=== PATIENT | male | born 1950 | race Caucasian/White ===

== ENCOUNTER 2017-06-19 09:35 | Emergency (ER) | payer MEDICARE, OTHER ==
[2017-06-19] MEDS ORDERED: MORPHINE SULFATE 4 MG/ML SYRINGE IV STA (10:29)
[2017-06-19] MEDS ORDERED: RX INFO: IV CONTRAST WAS GIVEN 1 EACH MISC MISCELLANE PRN (10:29)
[2017-06-19] MEDS ORDERED: SODIUM CHLORIDE 0.9% 1,000 ML IV STA (10:29)
--- NOTE | 2017-06-19 10:42 | ED ---
General Adult HPI - General Chief complaint: Back Pain/Injury Stated complaint: fall at home Time Seen by Provider: 06/19/17 10:01 Source: patient, RN notes reviewed Mode of arrival: ambulatory Limitations: no limitations - History of Present Illness Initial comments: 56-year-old male presents to emergency room chief complaint of back pain. Patient states that he fell off a ladder a few steps. 4 days ago. Patient states he tried Aleve he's tried Tylenol. Patient states that he seems to make his pain better see thought that he should be evaluated. Patient states he's bruised all the way to the back. Patient states that he has been having loss by bladder function he denies any saddle anesthesia. Patient denies any radiation of the legs. Patient states it just continues to hurt so he thought that he should be seen. Patient denies any recent fever, chills, shortness of breath, chest pain, abdominal pain, nausea vomiting, numbness or tingling, dysuria or hematuria, constipation or diarrhea, headaches or visual changes, or any other current symptoms. - Related Data Previous Rx's Medication Instructions Recorded Hydrocodone/Acetaminophen [[place] 1 each PO Q6HR PRN #20 tab 06/19/17 5-325] Allergies Allergy/AdvReac Type Severity Reaction Status Date / Time No Known Allergies Allergy Verified 06/19/17 09:56 Review of Systems ROS Statement: Those systems with pertinent positive or pertinent negative responses have been documented in the HPI. ROS Other: All systems not noted in ROS Statement are negative. Past Medical History Past Medical History: Hypertension History of Any Multi-Drug Resistant Organisms: None Reported Past Surgical History: No Surgical Hx Reported Past Psychological History: No Psychological Hx Reported Smoking Status: Current every day smoker Past Alcohol Use History: Occasional Past Drug Use History: None Reported General Exam Limitations: no limitations General appearance: alert, in no apparent distress ENT exam: Present: normal exam, mucous membranes moist Neck exam: Present: normal inspection. Absent: tenderness, meningismus, lymphadenopathy Respiratory exam: Present: normal lung sounds bilaterally. Absent: respiratory distress, wheezes, rales, rhonchi, stridor Cardiovascular Exam: Present: regular rate, normal rhythm, normal heart sounds. Absent: systolic murmur, diastolic murmur, rubs, gallop, clicks GI/Abdominal exam: Present: soft, normal bowel sounds. Absent: distended, tenderness, guarding, rebound, rigid Extremities exam: Present: normal inspection, full ROM, normal capillary refill. Absent: tenderness, pedal edema, joint swelling, calf tenderness Back exam: Present: full ROM, tenderness (Along the lumbar region that extends across the pelvis.). Absent: normal inspection (Patient has extensive ecchymosis to the lumbar region.), rash noted Neurological exam: Present: alert, oriented X3 Psychiatric exam: Present: normal affect, normal mood Skin exam: Present: warm, dry, intact, normal color. Absent: rash Course Vital Signs 06/19/17 06/19/17 09:53 11:48 Temperature 97.2 F L Pulse Rate 92 85 Respiratory 18 18 Rate Blood Pressure 192/111 214/102 O2 Sat by Pulse 98 96 Oximetry Medical Decision Making - Medical Decision Making 66-year-old male presents for fall from ladder. This time CAT scan is been reviewed and does not show any trauma type injury to the back or abdomen pelvis. At this time we will start patient pain medication for home. We did discuss follow-up we discussed return parameters outpatient family's questions. Patient is in agreement with this plan all questions have been answered. This time the patient will be discharged home. - Lab Data Result diagrams: 06/19/17 10:35 06/19/17 10:35 Lab Results 06/19/17 06/19/17 Range/Units 10:35 10:35 WBC 6.0 (3.8-10.6) k/uL RBC 4.58 (4.30-5.90) m/uL Hgb 15.1 (13.0-17.5) gm/dL Hct 47.3 (39.0-53.0) % MCV 103.3 H (80.0-100.0) fL MCH 32.9 (25.0-35.0) pg MCHC 31.9 (31.0-37.0) g/dL RDW 13.6 (11.5-15.5) % Plt Count 256 (150-450) k/uL Neutrophils % 65 % Lymphocytes % 19 % Monocytes % 9 % Eosinophils % 4 % Basophils % 1 % Neutrophils # 3.9 (1.3-7.7) k/uL Lymphocytes # 1.2 (1.0-4.8) k/uL Monocytes # 0.5 (0-1.0) k/uL Eosinophils # 0.2 (0-0.7) k/uL Basophils # 0.1 (0-0.2) k/uL Macrocytosis Slight Sodium 137 (137-145) mmol/L Potassium 4.2 (3.5-5.1) mmol/L Chloride 104 (98-107) mmol/L Carbon Dioxide 23 (22-30) mmol/L Anion Gap 10 mmol/L BUN 10 (9-20) mg/dL Creatinine 0.84 (0.66-1.25) mg/dL Est GFR (MDRD) Af Amer >60 (>60 ml/min/1.73 sqM) Est GFR (MDRD) Non-Af >60 (>60 ml/min/1.73 sqM) Glucose 95 (74-99) mg/dL Calcium 9.7 (8.4-10.2) mg/dL Total Bilirubin 1.2 (0.2-1.3) mg/dL AST 72 H (17-59) U/L ALT 69 (21-72) U/L Alkaline Phosphatase 116 (38-126) U/L Total Protein 7.4 (6.3-8.2) g/dL Albumin 4.2 (3.5-5.0) g/dL - Radiology Data Radiology results: report reviewed, image reviewed Disposition Clinical Impression: Lumbar contusion, Back contusion Disposition: HOME SELF-CARE Condition: Stable Instructions: Contusion in Adults (ED) Additional Instructions: Please use medication as discussed. Please follow up with family doctor if symptoms have not improved over the next two days. Please return to the emergency room if your symptoms increase or worsen or for any other concerns. Prescriptions: Hydrocodone/Acetaminophen [[place] 5-325] 1 each PO Q6HR PRN #20 tab PRN Reason: Pain Referrals: Erik Lemus MD [STAFF PHYSICIAN] - 1-2 days Time of Disposition: 12:01
[2017-06-19 10:43] LABS: Basophils # (A) 0.1 k/uL (0-0.2); Basophils % (A) 1 %; CH 33.7; CHCM 32.7; Eosinophils # (A) 0.2 k/uL (0-0.7); Eosinophils % (A) 4 %; HCT 47.3 % (39.0-53.0); HDW 2.02; HGB 15.1 gm/dL (13.0-17.5); Luc # (Auto) 0.08; Luc % (Auto) 1; Lymphocytes # (A) 1.2 k/uL (1.0-4.8); Lymphocytes % (A) 19 %; MCH 32.9 pg (25.0-35.0); MCHC 31.9 g/dL (31.0-37.0); MCV 103.3 fL (80.0-100.0); Macrocytosis Slight; Mean Platelet Volume 7.3; Monocytes # (A) 0.5 k/uL (0-1.0); Monocytes % (A) 9 %; Neutrophils # (A) 3.9 k/uL (1.3-7.7); Neutrophils % (A) 65 %; RBC 4.58 m/uL (4.30-5.90); RDW 13.6 % (11.5-15.5); WBC (Perox) 6.13
[2017-06-19 10:54] LABS: ALT 69 U/L (21-72); AST 72 U/L (17-59); Alkaline Phosphatase 116 U/L (38-126); Anion Gap 10 mmol/L; Blood Urea Nitrogen 10 mg/dL (9-20); Calcium 9.7 mg/dL (8.4-10.2); Carbon Dioxide 23 mmol/L (22-30); Chloride 104 mmol/L (98-107); Glucose 95 mg/dL (74-99); Non-African American GFR(MDRD) >60 (>60 ml/min/1.73 sqM); Potassium 4.2 mmol/L (3.5-5.1); Sodium 137 mmol/L (137-145); Total Bilirubin 1.2 mg/dL (0.2-1.3); Total Protein 7.4 g/dL (6.3-8.2)
[2017-06-19] MEDS ORDERED: ENALAPRILAT 1.25 MG/ML 1 ML VIAL IVP STA (11:08)
--- NOTE | 2017-06-19 11:43 | CT ---
EXAMINATION TYPE: CT abdomen pelvis w con DATE OF EXAM: 06/19/2017 REFERENCE: NONE HISTORY: Pain HISTORY: Fall 4 days ago hit back on trash can, severe bruising and pain to back REFERENCE: NONE CT DLP: 637.8 mGy Automated exposure control for dose reduction was used. TECHNIQUE: Helical acquisition through the abdomen and pelvis was obtained following the oral ingesti on of without Oral Contrast and following intravenous administration of 100 mL of Omnipaque 300. The data was reformatted in axial, coronal and sagittal projections. FINDINGS: There is some dependent atelectasis in the dependent portions of the lungs. There is no pl eural pericardial fluid. The heart is upper limits of normal in size. Within the abdomen, the liver is normal in size. It is markedly fatty infiltrated. The spleen and gal lbladder are normal. Both adrenal glands appear normal. There is a nonobstructing, 8.6 mm calculus in one of the lower pole calyces on the right. There is a 9 mm calculus in one of the lower pole calyces on the left. There is an additional 6 mm calculus in t he posterior mid polar calyx on the right. There is no hydronephrosis. The pancreatic duct is mildly prominent measuring 3 mm. No other pancreatic abnormality is identified . There is no significant retroperitoneal, iliac or inguinal adenopathy. The bladder is unremarkable. There are scattered diverticula in the sigmoid region without radiographic evidence of diverticulitis . The appendix is normal. Small bowel loops are normal. No free fluid and no free air is seen. There is facet arthropathy in the lower lumbar facets No fractures are seen. There is a subcutaneous hematoma overlying the soft tissues of the mid back extending over to the lev el of the right iliac crest. IMPRESSION: 1. SOFT TISSUE HEMATOMA OVERLYING THE LOWER BACK ON THE RIGHT. 2. FATTY INFILTRATION OF THE LIVER. 3. BORDERLINE CARDIOMEGALY. 5. BILATERAL NONOBSTRUCTING NEPHROLITHIASIS. 6. MILD PROMINENCE OF THE PANCREATIC DUCT. ERCP OR MRCP MIGHT BE WORTHWHILE IF CLINICALLY INDICATED. 7. MINIMAL UNCOMPLICATED DIVERTICULOSIS OF THE SIGMOID COLON. #8 MILD DEGENERATIVE CHANGE WITHIN THE SPINE.
--- NOTE | 2017-06-19 12:04 | ED ---
Medical Decision Making - Medical Decision Making Patient is a found to have an elevated blood pressure on this ER visit. At this time patient is informed to follow-up with his family care doctor for continued monitoring. - Lab Data Result diagrams: 06/19/17 10:35 06/19/17 10:35 Lab Results 06/19/17 06/19/17 Range/Units 10:35 10:35 WBC 6.0 (3.8-10.6) k/uL RBC 4.58 (4.30-5.90) m/uL Hgb 15.1 (13.0-17.5) gm/dL Hct 47.3 (39.0-53.0) % MCV 103.3 H (80.0-100.0) fL MCH 32.9 (25.0-35.0) pg MCHC 31.9 (31.0-37.0) g/dL RDW 13.6 (11.5-15.5) % Plt Count 256 (150-450) k/uL Neutrophils % 65 % Lymphocytes % 19 % Monocytes % 9 % Eosinophils % 4 % Basophils % 1 % Neutrophils # 3.9 (1.3-7.7) k/uL Lymphocytes # 1.2 (1.0-4.8) k/uL Monocytes # 0.5 (0-1.0) k/uL Eosinophils # 0.2 (0-0.7) k/uL Basophils # 0.1 (0-0.2) k/uL Macrocytosis Slight Sodium 137 (137-145) mmol/L Potassium 4.2 (3.5-5.1) mmol/L Chloride 104 (98-107) mmol/L Carbon Dioxide 23 (22-30) mmol/L Anion Gap 10 mmol/L BUN 10 (9-20) mg/dL Creatinine 0.84 (0.66-1.25) mg/dL Est GFR (MDRD) Af Amer >60 (>60 ml/min/1.73 sqM) Est GFR (MDRD) Non-Af >60 (>60 ml/min/1.73 sqM) Glucose 95 (74-99) mg/dL Calcium 9.7 (8.4-10.2) mg/dL Total Bilirubin 1.2 (0.2-1.3) mg/dL AST 72 H (17-59) U/L ALT 69 (21-72) U/L Alkaline Phosphatase 116 (38-126) U/L Total Protein 7.4 (6.3-8.2) g/dL Albumin 4.2 (3.5-5.0) g/dL Disposition Clinical Impression: Lumbar contusion, Back contusion, Hypertension Disposition: HOME SELF-CARE Condition: Stable Instructions: Contusion in Adults (ED) Additional Instructions: Please use medication as discussed. Please follow up with family doctor if symptoms have not improved over the next two days. Please return to the emergency room if your symptoms increase or worsen or for any other concerns. Prescriptions: Hydrocodone/Acetaminophen [[place] 5-325] 1 each PO Q6HR PRN #20 tab PRN Reason: Pain Referrals: Erik Lemus MD [STAFF PHYSICIAN] - 1-2 days Time of Disposition: 13:38
[2017-06-19] MEDS ORDERED: LABETALOL 5 MG/ML VIAL MDV IVP STA (12:35)
[2017-06-19 13:21] VITALS: TEMP 97.5
[2017-06-19 13:38] VITALS: BP 171/95; PULSE 79; RESP 20
== END 2017-06-19 13:45 | disposition home or self-care (01) ==
LOC: EC 09:35
DX: S30.0XXA Contusion of lower back and pelvis, initial encounter (principal); F17.200 Nicotine dependence, unspecified, uncomplicated; W11.XXXA Fall on and from ladder, initial encounter
CPT/HCPCS: 99284 ×2; 96374 ×2; 96375 ×3; 96361 ×2; 36415; 80053; 85025; 74177; J2270; Q9967

== ENCOUNTER 2021-04-01 05:15 | Inpatient (IN) | payer MEDICARE, OTHER ==
[2021-04-01] MEDS ORDERED: SODIUM CHLORIDE 0.9% 1,000 ML IV STA ×2 (05:19→06:26)
[2021-04-01 05:21] LABS: Glucose,Whole Blood 96 mg/dL (75-99)
--- NOTE | 2021-04-01 05:49 | ED ---
Fall HPI - General Chief Complaint: Fall Stated Complaint: Fall Time Seen by Provider: 04/01/21 05:18 Source: patient, EMS, RN notes reviewed, old records reviewed Mode of arrival: EMS - History of Present Illness Initial Comments: This is a 70-year-old male DF for evaluation of a fall. Fall with inability to stand up. Patient has multiple falls recently and has become increasingly weak. Patient does admit to drinking daily. Patient is complaining of severe weakness today he is short of breath currently and feels significantly dehydrated. Otherwise patient has a cough or congestion, Shortness of breath MD Complaint: fall -: hour(s) Fall From: standing When Fall Occurred: unsure Fall Witnessed: yes, by bystander Place Fall Occurred: home Loss of Consciousness: none Prolonged Down Time?: no Symptoms Prior to Fall: none Severity: moderate Quality: burning Context: tripped/slipped Associated Symptoms: denies - Related Data Previous Rx's Medication Instructions Recorded Hydrocodone/Acetaminophen [[place] 1 each PO Q6HR PRN #20 tab 06/19/17 5-325] Allergies Allergy/AdvReac Type Severity Reaction Status Date / Time No Known Allergies Allergy Verified 06/19/17 09:56 Review of Systems ROS Statement: Those systems with pertinent positive or pertinent negative responses have been documented in the HPI. ROS Other: All systems not noted in ROS Statement are negative. Past Medical History Past Medical History: Hypertension History of Any Multi-Drug Resistant Organisms: None Reported Past Surgical History: No Surgical Hx Reported Past Psychological History: No Psychological Hx Reported Past Alcohol Use History: Occasional Past Drug Use History: None Reported General Exam Limitations: no limitations General appearance: alert, in no apparent distress Head exam: Present: atraumatic, normocephalic, normal inspection Eye exam: Present: normal appearance, PERRL, EOMI. Absent: scleral icterus, conjunctival injection, periorbital swelling ENT exam: Present: normal exam, mucous membranes moist Neck exam: Present: normal inspection. Absent: tenderness, meningismus, lymphadenopathy Respiratory exam: Present: normal lung sounds bilaterally. Absent: respiratory distress, wheezes, rales, rhonchi, stridor Cardiovascular Exam: Present: regular rate, normal rhythm, normal heart sounds. Absent: systolic murmur, diastolic murmur, rubs, gallop, clicks GI/Abdominal exam: Present: soft, normal bowel sounds. Absent: distended, tenderness, guarding, rebound, rigid Extremities exam: Present: normal inspection, full ROM, normal capillary refill. Absent: tenderness, pedal edema, joint swelling, calf tenderness Back exam: Present: normal inspection Neurological exam: Present: alert, oriented X3, CN II-XII intact Psychiatric exam: Present: normal affect, normal mood Skin exam: Present: warm, dry, intact, normal color. Absent: rash Course Vital Signs 04/01/21 05:16 Temperature 98.1 F Pulse Rate 93 Respiratory 17 Rate Blood Pressure 171/88 O2 Sat by Pulse 97 Oximetry - Reevaluation(s) Reevaluation #1: 04/01/21 05:49 Medical record is reviewed Reevaluation #2: 04/01/21 06:37 Patient does not feel well feels weak feels lightheaded feels dizzy. Reevaluation #3: 04/01/21 06:37 Patient's continued to be short of breath with no chest pain Reevaluation #4: 04/01/21 06:37 Patient informed of results and questions answered - Consultations Consultation #1: Spoke with Dr. Pro who agrees to admit this patient Medical Decision Making - Medical Decision Making 70-year-old male DF for evaluation of weakness and fall. Patient does have pneumonia on x-ray short of breath and persistently weak. Patient be admitted for IV antibiotics medical management, PTOT evaluation - Lab Data Result diagrams: 04/01/21 05:47 04/01/21 05:47 Lab Results 04/01/21 04/01/21 04/01/21 Range/Units 05:19 05:47 05:47 WBC 9.9 (3.8-10.6) k/uL RBC 3.63 L (4.30-5.90) m/uL Hgb 12.1 L (13.0-17.5) gm/dL Hct 39.0 (39.0-53.0) % MCV 107.3 H (80.0-100.0) fL MCH 33.3 (25.0-35.0) pg MCHC 31.1 (31.0-37.0) g/dL RDW 14.6 (11.5-15.5) % Plt Count 362 (150-450) k/uL MPV 7.8 Neutrophils % 77 % Lymphocytes % 15 % Monocytes % 5 % Eosinophils % 2 % Basophils % 1 % Neutrophils # 7.6 (1.3-7.7) k/uL Lymphocytes # 1.4 (1.0-4.8) k/uL Monocytes # 0.5 (0-1.0) k/uL Eosinophils # 0.2 (0-0.7) k/uL Basophils # 0.1 (0-0.2) k/uL Macrocytosis Moderate Sodium 135 L (137-145) mmol/L Potassium 3.7 (3.5-5.1) mmol/L Chloride 105 (98-107) mmol/L Carbon Dioxide 18 L (22-30) mmol/L Anion Gap 12 mmol/L BUN 17 (9-20) mg/dL Creatinine 1.81 H (0.66-1.25) mg/dL Est GFR (CKD-EPI)AfAm 43 (>60 ml/min/1.73 sqM) Est GFR (CKD-EPI)NonAf 37 (>60 ml/min/1.73 sqM) Glucose 91 (74-99) mg/dL POC Glucose (mg/dL) 96 (75-99) mg/dL POC Glu Pl[employer]rer Apprentice ID Bhavik Main Plasma Lactic Acid Delbert (0.7-2.0) mmol/L Calcium 8.3 L (8.4-10.2) mg/dL Phosphorus 4.0 (2.5-4.5) mg/dL Magnesium 2.0 (1.6-2.3) mg/dL Total Bilirubin 1.2 (0.2-1.3) mg/dL AST 64 H (17-59) U/L ALT 16 (4-49) U/L Alkaline Phosphatase 622 H (38-126) U/L Creatine Kinase 146 (55-170) U/L Total Protein 6.2 L (6.3-8.2) g/dL Albumin 2.8 L (3.5-5.0) g/dL Serum Alcohol <10 mg/dL 04/01/21 Range/Units 05:47 WBC (3.8-10.6) k/uL RBC (4.30-5.90) m/uL Hgb (13.0-17.5) gm/dL Hct (39.0-53.0) % MCV (80.0-100.0) fL MCH (25.0-35.0) pg MCHC (31.0-37.0) g/dL RDW (11.5-15.5) % Plt Count (150-450) k/uL MPV Neutrophils % % Lymphocytes % % Monocytes % % Eosinophils % % Basophils % % Neutrophils # (1.3-7.7) k/uL Lymphocytes # (1.0-4.8) k/uL Monocytes # (0-1.0) k/uL Eosinophils # (0-0.7) k/uL Basophils # (0-0.2) k/uL Macrocytosis Sodium (137-145) mmol/L Potassium (3.5-5.1) mmol/L Chloride (98-107) mmol/L Carbon Dioxide (22-30) mmol/L Anion Gap mmol/L BUN (9-20) mg/dL Creatinine (0.66-1.25) mg/dL Est GFR (CKD-EPI)AfAm (>60 ml/min/1.73 sqM) Est GFR (CKD-EPI)NonAf (>60 ml/min/1.73 sqM) Glucose (74-99) mg/dL POC Glucose (mg/dL) (75-99) mg/dL POC Glu Plasterer Apprentice ID Plasma Lactic Acid Delbert 3.9 H* (0.7-2.0) mmol/L Calcium (8.4-10.2) mg/dL Phosphorus (2.5-4.5) mg/dL Magnesium (1.6-2.3) mg/dL Total Bilirubin (0.2-1.3) mg/dL AST (17-59) U/L ALT (4-49) U/L Alkaline Phosphatase (38-126) U/L Creatine Kinase (55-170) U/L Total Protein (6.3-8.2) g/dL Albumin (3.5-5.0) g/dL Serum Alcohol mg/dL - EKG Data -: EKG Interpreted by Me (EKG shows sinus at a 93 WI 1:30 QRS 76 QTC 452) - Radiology Data Radiology results: report reviewed (Chest and pelvis x-ray negative for traumatic injury as well as left hip, chest x-ray does show pneumonia), image reviewed Disposition Clinical Impression: Fall, Weakness, Dehydration, Acute exacerbation of chronic obstructive pulmonary disease (COPD) Disposition: ADMITTED IP TO THIS HOSP Condition: Good Is patient prescribed a controlled substance at d/c from ED?: No Referrals: Pete Pro MD [Primary Care Provider] - 1-2 days
[2021-04-01 06:12] LABS: Basophils # (A) 0.1 k/uL (0-0.2); Basophils % (A) 1 %; Eosinophils # (A) 0.2 k/uL (0-0.7); Eosinophils % (A) 2 %; HGB 12.1 gm/dL (13.0-17.5); Lymphocytes # (A) 1.4 k/uL (1.0-4.8); Lymphocytes % (A) 15 %; MCH 33.3 pg (25.0-35.0); MCHC 31.1 g/dL (31.0-37.0); MCV 107.3 fL (80.0-100.0); Macrocytosis Moderate; Mean Platelet Volume 7.8; Monocytes # (A) 0.5 k/uL (0-1.0); Monocytes % (A) 5 %; Neutrophils # (A) 7.6 k/uL (1.3-7.7); Neutrophils % (A) 77 %; Platelet Count 362 k/uL (150-450); RBC 3.63 m/uL (4.30-5.90); RDW 14.6 % (11.5-15.5); WBC 9.9 k/uL (3.8-10.6)
--- NOTE | 2021-04-01 06:21 | XR ---
EXAMINATION TYPE: XR chest 1V DATE OF EXAM: 04/01/2021 COMPARISON: NONE HISTORY: Fall. Chest pain TECHNIQUE: Single view FINDINGS: There is blunting of the left costophrenic angle. There is evidence of old left side rib fr actures. There is no pneumothorax. There is old bilateral clavicle fractures. There is no heart failu re. Heart size is fairly normal. There are multiple old right upper rib fractures. IMPRESSION: Pleural thickening and infiltrate at the left lung base. No heart failure seen.
--- NOTE | 2021-04-01 06:22 | XR ---
EXAMINATION TYPE: XR pelvis AP view DATE OF EXAM: 04/01/2021 COMPARISON: NONE HISTORY: Pain. Fall. TECHNIQUE: Single view FINDINGS: Pelvic ring is intact. Proximal femurs and hip joints are intact. There is no hip dysplasia . I see no evidence of a hip fracture. Sacroiliac joints are intact. IMPRESSION: Negative pelvis x-ray exam. No fracture.
--- NOTE | 2021-04-01 06:23 | XR ---
EXAMINATION TYPE: XR Hip Complete LT DATE OF EXAM: 04/01/2021 COMPARISON: NONE HISTORY: Fall. Pain. TECHNIQUE: 2 views FINDINGS: I see no fracture nor dislocation. Hip joint space is fairly normal. IMPRESSION: Negative left hip exam.
[2021-04-01 06:24] LABS: ALT 16 U/L (4-49); AST 64 U/L (17-59); African American GFR (CKD) 43 (>60 ml/min/1.73 sqM); Albumin 2.8 g/dL (3.5-5.0); Alcohol <10 mg/dL; Alkaline Phosphatase 622 U/L (38-126); Anion Gap 12 mmol/L; Blood Urea Nitrogen 17 mg/dL (9-20); Calcium 8.3 mg/dL (8.4-10.2); Carbon Dioxide 18 mmol/L (22-30); Chloride 105 mmol/L (98-107); Creatine Kinase 146 U/L (55-170); Glucose 91 mg/dL (74-99); Non-African American GFR(CKD) 37 (>60 ml/min/1.73 sqM); Potassium 3.7 mmol/L (3.5-5.1); Sodium 135 mmol/L (137-145); Total Bilirubin 1.2 mg/dL (0.2-1.3); Total Protein 6.2 g/dL (6.3-8.2)
[2021-04-01] MEDS ORDERED: DEXAMETHASONE SOD PHOSPHATE 10 MG/ML 1 ML VIAL IV STA (06:26)
[2021-04-01] MEDS ORDERED: IPRATROPIUM-ALBUTEROL 3 ML NEB INHALATION STA (06:26)
[2021-04-01] MEDS ORDERED: KETOROLAC 15 MG/ML 1 ML VIAL IVP STA (06:27)
[2021-04-01] MEDS ORDERED: NALOXONE 0.4 MG/ML 1 ML VIAL IV PRN ×2 (06:31→06:38)
[2021-04-01] MEDS ORDERED: THIAMINE 100 MG/ML 2 ML VIAL IM STA (06:31)
[2021-04-01] MEDS ORDERED: MORPHINE SULFATE 4 MG/ML SYRINGE IVP PRN (06:34)
[2021-04-01] MEDS ORDERED: MORPHINE SULFATE 4 MG/ML SYRINGE IVP STA (06:34)
[2021-04-01 06:36] LABS: INR 2.5 (<1.2); Prothrombin Time 24.6 sec (9.0-12.0)
[2021-04-01] MEDS ORDERED: ONDANSETRON 4 MG/2 ML VIAL IVP PRN (06:38)
[2021-04-01] MEDS ORDERED: AZITHROMYCIN 500 MG in SODIUM CHLORIDE 0.9% 250 ML IVPB ONE (07:00)
[2021-04-01] MEDS: ALBUTEROL NEBULIZED 2.5 MG/3 ML INHALATION SCH ×5 (08:15→23:30)
[2021-04-01] MEDS: PANTOPRAZOLE 40 MG/10 ML VIAL IV SCH (11:16)
[2021-04-01] MEDS: SODIUM CHLORIDE 0.9% 1,000 ML IV SCH ×3 (11:16→21:32)
[2021-04-01] MEDS: ENOXAPARIN 40 MG/0.4 ML SYRINGE SQ SCH (11:16)
[2021-04-01] MEDS: LORazepam 2 MG/ML INJ IV PRN ×3 (11:56→18:06)
[2021-04-01] MEDS: methylPREDNISolone SOD SUCCI 125 MG/2 ML VIAL IV SCH ×2 (12:15→18:52)
[2021-04-01] MEDS ORDERED: SODIUM CHLORIDE 0.9% 1,000 ML IV ONE (13:01)
[2021-04-01] MEDS ORDERED: FUROSEMIDE 10 MG/ML 4 ML VIAL ONE (16:49)
[2021-04-01] MEDS ORDERED: FUROSEMIDE 10 MG/ML 4 ML VIAL IV STA (16:51)
[2021-04-01] MEDS: HALOPERIDOL LACTATE 5 MG/ML 1 ML VIAL IVP PRN (16:58)
[2021-04-01 17:00] LABS: Glucose,Whole Blood 137 mg/dL (75-99)
[2021-04-01 17:00] LABS: ABG Base Excess -8.4 mmol/L; ABG HCO3 15 mmol/L (21-25); ABG Oxygen Saturation 95.9 % (94-97); ABG PCO2 22 mmHg (35-45); ABG PH 7.46 (7.35-7.45); ABG PO2 78 mmHg (83-108); ABG TCO2 16 mmol/L (19-24); Allen Test Performed? Yes
--- NOTE | 2021-04-01 17:30 | P.PN ---
Progress Note - Text Progress Note Date: 04/01/21 70-year-old male here for general weakness and a fall. Upon admission he was found to have CAP, was started on ceftriaxone and azithromycin. He reportedly drinks alot. Currently on CIWA protocol. While on the flood he was found lethargic and minimally responsive. Upon my evaluation he wakes up and mumbles to loud questions. His answers are not making any sense. He was unable to answer if he has pain. His tongue is covered with dried blood. Vital signs were ok, he is on 4L. Exam showed distended abdomen. Plan: Stat ABG Stat CXR Stat labs including trops Lasix 40mg IV times one Head ct, neuro consult, possible seizure. Time for critical care 36 min D/W nursing staff
--- NOTE | 2021-04-01 17:51 | XR ---
EXAMINATION TYPE: XR chest 1V portable DATE OF EXAM: 04/01/2021 COMPARISON: 04/01/2021 HISTORY: Short of breath TECHNIQUE: FINDINGS: There is some airspace infiltrate in the left lower lobe. The right lung is fairly clear. T here is no gross heart failure. There are chest leads. IMPRESSION: There is increasing left lower lobe pneumonia compared to exam this morning.
[2021-04-01 17:54] LABS: Basophils % (A) 0 %; Eosinophils % (A) 0 %; HCT 36.3 % (39.0-53.0); HGB 11.5 gm/dL (13.0-17.5); Hypochromasia Slight; Lymphocytes # (A) 0.4 k/uL (1.0-4.8); Lymphocytes % (A) 5 %; MCH 33.8 pg (25.0-35.0); MCHC 31.6 g/dL (31.0-37.0); MCV 107.1 fL (80.0-100.0); Macrocytosis Moderate; Mean Platelet Volume 8.3; Monocytes # (A) 0.1 k/uL (0-1.0); Monocytes % (A) 1 %; Neutrophils % (A) 94 %; Platelet Count 264 k/uL (150-450); RBC 3.39 m/uL (4.30-5.90); RDW 13.9 % (11.5-15.5); WBC 7.5 k/uL (3.8-10.6)
[2021-04-01 18:04] LABS: Albumin 2.7 g/dL (3.5-5.0); Bilirubin, Delta 0.9 mg/dL (0.0-0.2); Bilirubin,Unconjugated 0.2 mg/dL (0.0-1.1); Calcium 7.1 mg/dL (8.4-10.2); Potassium 3.6 mmol/L (3.5-5.1); Total Bilirubin 1.1 mg/dL (0.2-1.3)
[2021-04-01] MEDS: THIAMINE 100 MG TAB PO SCH (18:04)
[2021-04-01 18:13] LABS: Appearance,Urine Cloudy (Clear); Bacteria,Urine Rare /hpf; Bilirubin,Urine Negative (Negative); Blood,Urine Large (Negative); Calcium Oxalate Crystals,Urine Moderate /hpf; Color,Urine Yellow; Glucose,Urine (UA) Negative (Negative); Hyaline Casts,Urine 3 /lpf (0-2); Ketones,Urine Negative (Negative); Leukocyte Esterase,Urine Negative (Negative); Mucus,Urine Rare /hpf; Nitrite,Urine Negative (Negative); Protein,Urine Trace (Negative); RBC,Urine 98 /hpf (0-5); Specific Gravity,Urine 1.013 (1.001-1.035); Squamous Epithelial Cell,Urine <1 /hpf (0-4); Urobilinogen,Urine <2.0 mg/dL (<2.0); WBC,Urine 7 /hpf (0-5)
[2021-04-01 18:24] LABS: Glucose,Whole Blood 144 mg/dL (75-99)
--- NOTE | 2021-04-01 18:27 | CT ---
EXAMINATION TYPE: CT brain wo con DATE OF EXAM: 04/01/2021 COMPARISON: 03/06/2013 HISTORY: Change in mental status, possible seizure. CT DLP: 1125.4 mGycm Automated exposure control for dose reduction was used. There is cerebral cortical atrophy. There is no mass effect nor midline shift. There is no sign of in tracranial hemorrhage. Calvarium is intact. The skull base is intact. There is normal aeration of the mastoid sinuses. IMPRESSION: Cerebral atrophy. No acute intracranial abnormality. Atrophy increased compared to old exam.
--- NOTE | 2021-04-01 18:42 | XR ---
EXAMINATION TYPE: XR abdomen 1V DATE OF EXAM: 04/01/2021 COMPARISON: NONE HISTORY: Distended abdomen TECHNIQUE: 3 views supine FINDINGS: There is no sign of intestinal obstruction or pneumoperitoneum. Fecal pattern appears kaia l. There is no evidence of a mass. There are multiple old left-sided rib fractures. Exam limited some what by motion. There are renal calculi. IMPRESSION: Nonacute abdomen. Limited exam. No free air.
[2021-04-01] MEDS ORDERED: Potassium Replacement Protocol 1 EACH MISC MISCELLANE PRN (19:10)
[2021-04-01] MEDS: POTASSIUM CHLORIDE 10 MEQ in WATER FOR INJECTION 1 100ML.BAG IVPB SCH ×2 (19:15→20:19)
[2021-04-02 00:03] LABS: Glucose,Whole Blood 143 mg/dL (75-99)
[2021-04-02] MEDS: methylPREDNISolone SOD SUCCI 125 MG/2 ML VIAL IV SCH ×2 (00:08→06:44)
[2021-04-02] MEDS: INSULIN ASPART (NovoLOG) 100 UNIT/ML VIAL SQ SCH ×5 (00:08→23:08)
[2021-04-02] MEDS: LORazepam 2 MG/ML INJ IV PRN ×8 (01:03→22:48)
[2021-04-02] MEDS: HALOPERIDOL LACTATE 5 MG/ML 1 ML VIAL IVP PRN ×2 (01:43→15:40)
[2021-04-02] MEDS ORDERED: SODIUM CHLORIDE 0.9% 1,000 ML IV ONE (02:41)
[2021-04-02] MEDS: SODIUM CHLORIDE 0.9% 1,000 ML IV SCH ×3 (03:02→20:28)
[2021-04-02] MEDS: ALBUTEROL NEBULIZED 2.5 MG/3 ML INHALATION SCH ×2 (03:13→08:29)
[2021-04-02 04:26] LABS: Basophils % (A) 0 %; Eosinophils % (A) 0 %; HCT 32.9 % (39.0-53.0); Hypochromasia Slight; Lymphocytes # (A) 0.5 k/uL (1.0-4.8); Lymphocytes % (A) 7 %; MCH 32.8 pg (25.0-35.0); MCHC 30.2 g/dL (31.0-37.0); MCV 108.9 fL (80.0-100.0); Macrocytosis Marked; Monocytes # (A) 0.1 k/uL (0-1.0); Monocytes % (A) 1 %; Neutrophils # (A) 7.4 k/uL (1.3-7.7); Neutrophils % (A) 92 %; Platelet Count 263 k/uL (150-450); RBC 3.02 m/uL (4.30-5.90); RDW 14.5 % (11.5-15.5); WBC 8.1 k/uL (3.8-10.6)
[2021-04-02 04:28] LABS: HGB 9.9 gm/dL (13.0-17.5)
[2021-04-02 04:37] LABS: Albumin 2.4 g/dL (3.5-5.0); Calcium 6.7 mg/dL (8.4-10.2); Magnesium 1.9 mg/dL (1.6-2.3); Phosphorus 4.3 mg/dL (2.5-4.5); Potassium 3.2 mmol/L (3.5-5.1); Total Bilirubin 0.9 mg/dL (0.2-1.3); Total Protein 5.5 g/dL (6.3-8.2)
[2021-04-02 06:10] LABS: Glucose,Whole Blood 109 mg/dL (75-99)
[2021-04-02] MEDS ORDERED: Potassium Replacement Protocol 1 EACH MISC MISCELLANE PRN (06:13)
[2021-04-02] MEDS: THIAMINE 100 MG TAB PO SCH ×2 (06:41→15:38)
[2021-04-02] MEDS: POTASSIUM CHLORIDE 10 MEQ in WATER FOR INJECTION 1 100ML.BAG IVPB SCH ×4 (06:44→13:23)
[2021-04-02] MEDS: MAGNESIUM SULFATE-D5W PMX 1 GM in DEXTROSE/WATER 1 100ML.BAG IVPB SCH ×2 (06:44→10:11)
--- NOTE | 2021-04-02 07:26 | XR ---
EXAMINATION TYPE: XR chest 1V DATE OF EXAM: 04/02/2021 COMPARISON: 04/01/2021 HISTORY: Short of breath TECHNIQUE: Single frontal view of the chest is obtained. FINDINGS: Left greater than right bibasilar pleural-parenchymal disease appears similar to the prior exam. Cardiac silhouette is unchanged. IMPRESSION: No significant change since the prior exam.
--- NOTE | 2021-04-02 08:40 | P.HPIM ---
History of Present Illness H&P Date: 04/01/21 Chief Complaint: fall, weakness Neri Kurtz is a 70 yo M with PMH of alcoholism, drinks a fifth of whiskey daily who presented to the ED with increasing weakness and falls at home. He states that he had not been feeling like himself, stumbling and after falling at home he decided to come to the ED. He denies nausea, vomiting or diarrhea. He does endorse cough. Pt denies sweats or tremors. On presentation pt hypertensive, labs with Hgb 12, Cr 1.8, lactic 4. AST elevated, trop 0.04, BNP 3300. CXR with L basilar infiltrate. Review of Systems All systems: negative Constitutional: Reports malaise, Reports weakness, Denies chills, Denies fever Eyes: denies blurred vision, denies pain Ears, nose, mouth and throat: Denies headache, Denies sore throat Cardiovascular: Denies chest pain, Denies shortness of breath Respiratory: Denies cough Gastrointestinal: Denies abdominal pain, Denies diarrhea, Denies nausea, Denies vomiting Musculoskeletal: Denies myalgias Integumentary: Denies pruritus, Denies rash Neurological: Denies numbness, Denies weakness Psychiatric: Denies anxiety, Denies depression Endocrine: Denies fatigue, Denies weight change Past Medical History Past Medical History: Hypertension History of Any Multi-Drug Resistant Organisms: None Reported Past Surgical History: No Surgical Hx Reported Past Psychological History: No Psychological Hx Reported Smoking Status: Current every day smoker Past Alcohol Use History: Occasional Past Drug Use History: None Reported Medications and Allergies Home Medications Medication Instructions Recorded Confirmed Type No Known Home Medications 04/01/21 04/01/21 History Allergies Allergy/AdvReac Type Severity Reaction Status Date / Time No Known Allergies Allergy Verified 04/01/21 07:20 Physical Exam Vitals: Vital Signs Temp Pulse Pulse Resp BP BP Pulse Ox 04/01/21 23:30 78 04/01/21 23:00 80 20 115/79 92 L 04/01/21 22:30 73 19 93 L 04/01/21 22:00 85 22 125/85 93 L 04/01/21 21:30 84 21 115/79 93 L 04/01/21 21:00 86 22 141/100 91 L 04/01/21 20:30 90 24 130/95 94 L 04/01/21 20:00 98 F 92 23 130/91 94 L 04/01/21 19:58 92 04/01/21 19:36 96 96 04/01/21 19:30 89 22 143/91 92 L 04/01/21 19:00 87 24 140/102 94 L 04/01/21 18:30 97.9 F 91 26 H 148/96 93 L 04/01/21 18:25 90 29 H 95 04/01/21 18:01 102 H 24 140/56 94 L 04/01/21 16:26 90 04/01/21 16:16 88 04/01/21 14:00 95 21 04/01/21 12:27 92 04/01/21 12:17 96 04/01/21 12:11 98.4 F 95 21 134/84 95 04/01/21 08:37 97.8 F 92 24 156/80 92 L 04/01/21 08:00 21 04/01/21 07:56 98.0 F 90 16 171/88 99 04/01/21 07:15 86 04/01/21 06:57 85 04/01/21 06:43 78 24 174/87 97 04/01/21 05:16 98.1 F 93 17 171/88 97 Intake and Output 04/01/21 04/01/21 04/02/21 14:59 22:59 06:59 Intake Total 5100 130 Output Total 465 60 Balance 4635 70 Intake: IV 700 130 Potassium Chloride 10 meq 200 In Water For Injection 1 100ml.bag @ 100 mls/hr IVPB Q1H [facility] Rx#: [id number] Sodium Chloride 0.9% 1, 450 130 000 ml @ 130 mls/hr IV . Q7H42M [facility] Rx#:[id number] cefTRIAXone 2 gm In 50 Sodium Chloride 0.9% 50 ml @ 100 mls/hr IVPB ONCE STA Rx#:[id number] Intake, IV Titration 4250 Amount Azithromycin 250 mg In 250 Sodium Chloride 0.9% 250 ml @ 250 mls/hr IVPB DAILY BELLE Rx#:[id number] Sodium Chloride 0.9% 1, 4000 000 ml @ 999 mls/hr IV . Q1H1M STA Rx#:[id number] Oral 150 Output: Urine 465 60 Other: Voiding Method Bedside Commode Indwelling Catheter Urinal Weight 74.843 kg 96.2 kg General: well nourished, well developed, NAD. Vitals reviewed Eyes: PERRL, EOMI, conjunctiva normal HENT: normocephalic, mucus membranes moist Neck: supple, no JVD Lungs: normal respiratory effort, no wheezes. Rales at the base CV: tachycardic and rhythm, no murmur. Peripheral pulses 2+ Abdomen: soft, nondistended, no organomegaly Lymph: no cervical or axillary LAD Skin: warm and dry. Neuro: A&Ox3, normal mood and affect Results CBC & Chem 7: 04/02/21 03:49 04/02/21 03:49 Labs: Abnormal Lab Results - Last 24 Hours (Table) 04/01/21 04/01/21 04/01/21 Range/Units 05:47 05:47 05:47 RBC 3.63 L (4.30-5.90) m/uL Hgb 12.1 L (13.0-17.5) gm/dL Hct (39.0-53.0) % MCV 107.3 H (80.0-100.0) fL Lymphocytes # (1.0-4.8) k/uL PT 24.6 H (9.0-12.0) sec INR 2.5 H (<1.2) APTT 31.0 H (22.0-30.0) sec ABG pH (7.35-7.45) ABG pCO2 (35-45) mmHg ABG pO2 (83-108) mmHg ABG HCO3 (21-25) mmol/L ABG Total CO2 (19-24) mmol/L Sodium (137-145) mmol/L Chloride (98-107) mmol/L Carbon Dioxide (22-30) mmol/L Creatinine (0.66-1.25) mg/dL Glucose (74-99) mg/dL POC Glucose (mg/dL) (75-99) mg/dL Plasma Lactic Acid Delbert (0.7-2.0) mmol/L Calcium (8.4-10.2) mg/dL Delta Bilirubin (0.0-0.2) mg/dL AST (17-59) U/L Alkaline Phosphatase (38-126) U/L Troponin I (0.000-0.034) ng/mL Total Protein (6.3-8.2) g/dL Albumin (3.5-5.0) g/dL Urine Protein Trace H (Negative) Urine Blood Large H (Negative) Urine RBC 98 H (0-5) /hpf Urine WBC 7 H (0-5) /hpf Calcium Oxalate Crystal Moderate H (None) /hpf Urine Bacteria Rare H (None) /hpf Hyaline Casts 3 H (0-2) /lpf Urine Mucus Rare H (None) /hpf 04/01/21 04/01/21 04/01/21 Range/Units 05:47 05:47 05:47 RBC (4.30-5.90) m/uL Hgb (13.0-17.5) gm/dL Hct (39.0-53.0) % MCV (80.0-100.0) fL Lymphocytes # (1.0-4.8) k/uL PT (9.0-12.0) sec INR (<1.2) APTT (22.0-30.0) sec ABG pH (7.35-7.45) ABG pCO2 (35-45) mmHg ABG pO2 (83-108) mmHg ABG HCO3 (21-25) mmol/L ABG Total CO2 (19-24) mmol/L Sodium 135 L (137-145) mmol/L Chloride (98-107) mmol/L Carbon Dioxide 18 L (22-30) mmol/L Creatinine 1.81 H (0.66-1.25) mg/dL Glucose (74-99) mg/dL POC Glucose (mg/dL) (75-99) mg/dL Plasma Lactic Acid Delbert 3.9 H* (0.7-2.0) mmol/L Calcium 8.3 L (8.4-10.2) mg/dL Delta Bilirubin (0.0-0.2) mg/dL AST 64 H (17-59) U/L Alkaline Phosphatase 622 H (38-126) U/L Troponin I 0.039 H* (0.000-0.034) ng/mL Total Protein 6.2 L (6.3-8.2) g/dL Albumin 2.8 L (3.5-5.0) g/dL Urine Protein (Negative) Urine Blood (Negative) Urine RBC (0-5) /hpf Urine WBC (0-5) /hpf Calcium Oxalate Crystal (None) /hpf Urine Bacteria (None) /hpf Hyaline Casts (0-2) /lpf Urine Mucus (None) /hpf 04/01/21 04/01/21 04/01/21 Range/Units 08:39 11:48 11:48 RBC (4.30-5.90) m/uL Hgb (13.0-17.5) gm/dL Hct (39.0-53.0) % MCV (80.0-100.0) fL Lymphocytes # (1.0-4.8) k/uL PT (9.0-12.0) sec INR (<1.2) APTT (22.0-30.0) sec ABG pH (7.35-7.45) ABG pCO2 (35-45) mmHg ABG pO2 (83-108) mmHg ABG HCO3 (21-25) mmol/L ABG Total CO2 (19-24) mmol/L Sodium (137-145) mmol/L Chloride (98-107) mmol/L Carbon Dioxide (22-30) mmol/L Creatinine (0.66-1.25) mg/dL Glucose (74-99) mg/dL POC Glucose (mg/dL) (75-99) mg/dL Plasma Lactic Acid Delbert 3.4 H* 4.0 H* (0.7-2.0) mmol/L Calcium (8.4-10.2) mg/dL Delta Bilirubin (0.0-0.2) mg/dL AST (17-59) U/L Alkaline Phosphatase (38-126) U/L Troponin I 0.038 H* (0.000-0.034) ng/mL Total Protein (6.3-8.2) g/dL Albumin (3.5-5.0) g/dL Urine Protein (Negative) Urine Blood (Negative) Urine RBC (0-5) /hpf Urine WBC (0-5) /hpf Calcium Oxalate Crystal (None) /hpf Urine Bacteria (None) /hpf Hyaline Casts (0-2) /lpf Urine Mucus (None) /hpf 04/01/21 04/01/21 04/01/21 Range/Units 15:27 16:49 16:55 RBC (4.30-5.90) m/uL Hgb (13.0-17.5) gm/dL Hct (39.0-53.0) % MCV (80.0-100.0) fL Lymphocytes # (1.0-4.8) k/uL PT (9.0-12.0) sec INR (<1.2) APTT (22.0-30.0) sec ABG pH 7.46 H (7.35-7.45) ABG pCO2 22 L (35-45) mmHg ABG pO2 78 L (83-108) mmHg ABG HCO3 15 L (21-25) mmol/L ABG Total CO2 16 L (19-24) mmol/L Sodium (137-145) mmol/L Chloride (98-107) mmol/L Carbon Dioxide (22-30) mmol/L Creatinine (0.66-1.25) mg/dL Glucose (74-99) mg/dL POC Glucose (mg/dL) 137 H (75-99) mg/dL Plasma Lactic Acid Delbert 3.7 H* (0.7-2.0) mmol/L Calcium (8.4-10.2) mg/dL Delta Bilirubin (0.0-0.2) mg/dL AST (17-59) U/L Alkaline Phosphatase (38-126) U/L Troponin I (0.000-0.034) ng/mL Total Protein (6.3-8.2) g/dL Albumin (3.5-5.0) g/dL Urine Protein (Negative) Urine Blood (Negative) Urine RBC (0-5) /hpf Urine WBC (0-5) /hpf Calcium Oxalate Crystal (None) /hpf Urine Bacteria (None) /hpf Hyaline Casts (0-2) /lpf Urine Mucus (None) /hpf 04/01/21 04/01/21 04/01/21 Range/Units 17:25 17:25 18:22 RBC 3.39 L (4.30-5.90) m/uL Hgb 11.5 L (13.0-17.5) gm/dL Hct 36.3 L (39.0-53.0) % MCV 107.1 H (80.0-100.0) fL Lymphocytes # 0.4 L (1.0-4.8) k/uL PT (9.0-12.0) sec INR (<1.2) APTT (22.0-30.0) sec ABG pH (7.35-7.45) ABG pCO2 (35-45) mmHg ABG pO2 (83-108) mmHg ABG HCO3 (21-25) mmol/L ABG Total CO2 (19-24) mmol/L Sodium (137-145) mmol/L Chloride 108 H (98-107) mmol/L Carbon Dioxide 15 L (22-30) mmol/L Creatinine 1.53 H (0.66-1.25) mg/dL Glucose 149 H (74-99) mg/dL POC Glucose (mg/dL) 144 H (75-99) mg/dL Plasma Lactic Acid Delbert (0.7-2.0) mmol/L Calcium 7.1 L (8.4-10.2) mg/dL Delta Bilirubin 0.9 H (0.0-0.2) mg/dL AST 68 H (17-59) U/L Alkaline Phosphatase 558 H (38-126) U/L Troponin I (0.000-0.034) ng/mL Total Protein 6.0 L (6.3-8.2) g/dL Albumin 2.7 L (3.5-5.0) g/dL Urine Protein (Negative) Urine Blood (Negative) Urine RBC (0-5) /hpf Urine WBC (0-5) /hpf Calcium Oxalate Crystal (None) /hpf Urine Bacteria (None) /hpf Hyaline Casts (0-2) /lpf Urine Mucus (None) /hpf 04/01/21 04/01/21 Range/Units 18:36 21:35 RBC (4.30-5.90) m/uL Hgb (13.0-17.5) gm/dL Hct (39.0-53.0) % MCV (80.0-100.0) fL Lymphocytes # (1.0-4.8) k/uL PT (9.0-12.0) sec INR (<1.2) APTT (22.0-30.0) sec ABG pH (7.35-7.45) ABG pCO2 (35-45) mmHg ABG pO2 (83-108) mmHg ABG HCO3 (21-25) mmol/L ABG Total CO2 (19-24) mmol/L Sodium (137-145) mmol/L Chloride (98-107) mmol/L Carbon Dioxide (22-30) mmol/L Creatinine (0.66-1.25) mg/dL Glucose (74-99) mg/dL POC Glucose (mg/dL) (75-99) mg/dL Plasma Lactic Acid Delbert 3.5 H* 2.4 H* (0.7-2.0) mmol/L Calcium (8.4-10.2) mg/dL Delta Bilirubin (0.0-0.2) mg/dL AST (17-59) U/L Alkaline Phosphatase (38-126) U/L Troponin I (0.000-0.034) ng/mL Total Protein (6.3-8.2) g/dL Albumin (3.5-5.0) g/dL Urine Protein (Negative) Urine Blood (Negative) Urine RBC (0-5) /hpf Urine WBC (0-5) /hpf Calcium Oxalate Crystal (None) /hpf Urine Bacteria (None) /hpf Hyaline Casts (0-2) /lpf Urine Mucus (None) /hpf Thrombosis Risk Factor Assmnt - Choose All That Apply Each Risk Factor Represents 2 Points: Age 61-74 years Other congenital or acquired thrombophilia - If yes, enter type in comment: No Thrombosis Risk Factor Assessment Total Risk Factor Score: 2 Thrombosis Risk Factor Assessment Level: Low Risk Assessment and Plan Plan: 1. Alcohol withdrawal with seizure. Admit to ICU. WA protocol. Neurology consult. Continue to closely monitor 2. Acute kidney injury, secondary to alcohol abuse. IV fluids, avoid nephrotoxins 3. LLL infiltrate, concern for CAP. Empiric abx, will check procalcitionin 4. Elevated AST 5. Elevated lactic
[2021-04-02] MEDS ORDERED: AZITHROMYCIN 250 MG in SODIUM CHLORIDE 0.9% 250 ML IVPB SCH (09:00)
[2021-04-02] MEDS ORDERED: AZITHROMYCIN 500 MG in SODIUM CHLORIDE 0.9% 250 ML IVPB SCH (09:00)
[2021-04-02] MEDS: ENOXAPARIN 40 MG/0.4 ML SYRINGE SQ SCH (10:15)
[2021-04-02] MEDS: PANTOPRAZOLE 40 MG/10 ML VIAL IV SCH (10:15)
--- NOTE | 2021-04-02 10:49 | P.CNPUL ---
History of Present Illness Consult date: 04/02/21 Requesting physician: Pete Pro Reason for consult: hypoxemia, other (Critical care management) Chief complaint: Generalized weakness, falls History of present illness: This is a 70-year-old male patient with a history of hypertension and alcohol abuse. He did have an ongoing weakness and falls at home. He had been drinking daily and not eating much. He presented to the emergency room yesterday with shortness of breath and feelings of dehydration. X-ray of the left hip revealed no fracture. X-ray of the pelvis reveals no fracture. X-ray of the abdomen revealed nonacute abdomen. No free air. Computed tomography scan of the brain revealed cerebral atrophy. No acute intracranial abnormalities. Chest x-ray revealed left greater than right bibasilar pleural parenchymal disease. He was admitted to the regular medical floor. Last evening approximately 5:30 the patient was found on the floor lethargic and minimally responsive. He was only arousing to loud questions. ABGs, chest x-ray and labs were drawn. He was given IV Lasix and transferred to the intensive care unit for concerns regarding possible seizure. He is seen today in consultation. He is currently resting in bed. He is barely arousable. He is mumbling. He is maintaining O2 saturations in the 90s on 4 L/m per nasal cannula. He does have 0.9 normal saline at 130 mL by mouth per hour. Suspect alcohol withdrawal syndrome. He is on the CIWA protocol. Abdomen is distended. He is currently on ceftriaxone and azithromycin. Lovenox for DVT prophylaxis. Haldol for agitation. Thiamine. ABGs revealed a pO2 of 78, pCO2 22, pH 7.46 on 32% FiO2. White count 8.1. Hemoglobin 9.9. MCV 108.9. Platelets 263. Sodium 136. Potassium 3.2. Creatinine 1.58. ProBNP 3300. Troponin negative. Serum alcohol level was less than 10. INR 2.5. Review of Systems ROS unobtainable: due to mental status Past Medical History Past Medical History: Hypertension History of Any Multi-Drug Resistant Organisms: None Reported Past Surgical History: No Surgical Hx Reported Past Psychological History: No Psychological Hx Reported Smoking Status: Current every day smoker Past Alcohol Use History: Occasional Past Drug Use History: None Reported Medications and Allergies Home Medications Medication Instructions Recorded Confirmed Type No Known Home Medications 04/01/21 04/01/21 History Allergies Allergy/AdvReac Type Severity Reaction Status Date / Time No Known Allergies Allergy Verified 04/01/21 07:20 Physical Exam Vitals: Vital Signs Temp Pulse Pulse Resp BP BP Pulse Ox 04/02/21 07:00 84 30 H 132/96 95 04/02/21 06:00 80 18 118/75 93 L 04/02/21 05:00 75 18 115/74 93 L 04/02/21 04:00 97.6 F 74 18 117/77 90 L 04/02/21 03:27 79 04/02/21 03:13 80 04/02/21 03:00 86 21 124/76 94 L 04/02/21 02:30 95 30 H 93 L 04/02/21 02:00 86 23 137/93 93 L 04/02/21 01:30 84 21 92 L 04/02/21 01:00 89 28 H 128/98 93 L 04/02/21 00:30 81 20 93 L 04/02/21 00:00 98.1 F 82 19 114/75 92 L 04/01/21 23:45 83 04/01/21 23:30 78 20 91 L 04/01/21 23:00 80 20 115/79 92 L 04/01/21 22:30 73 19 93 L 04/01/21 22:00 85 22 125/85 93 L 04/01/21 21:30 84 21 115/79 93 L 04/01/21 21:00 86 22 141/100 91 L 04/01/21 20:30 90 24 130/95 94 L 04/01/21 20:00 98 F 92 23 130/91 94 L 04/01/21 19:58 92 04/01/21 19:36 96 96 04/01/21 19:30 89 22 143/91 92 L 04/01/21 19:00 87 24 140/102 94 L 04/01/21 18:30 97.9 F 91 26 H 148/96 93 L 04/01/21 18:25 90 29 H 95 04/01/21 18:01 102 H 24 140/56 94 L 04/01/21 16:26 90 04/01/21 16:16 88 04/01/21 14:00 95 21 04/01/21 12:27 92 04/01/21 12:17 96 04/01/21 12:11 98.4 F 95 21 134/84 95 Intake and Output 04/01/21 04/02/21 04/02/21 22:59 06:59 14:59 Intake Total 5100 2040 130 Output Total 465 240 30 Balance 4635 1800 100 Intake: IV 700 2040 130 Potassium Chloride 10 meq 200 In Water For Injection 1 100ml.bag @ 100 mls/hr IVPB Q1H [facility] Rx#: [id number] Sodium Chloride 0.9% 1, 450 1040 130 000 ml @ 130 mls/hr IV . Q7H42M [facility] Rx#:[id number] Sodium Chloride 0.9% 1, 1000 000 ml @ 999 mls/hr IV . Q1H1M ONE Rx#:[id number] cefTRIAXone 2 gm In 50 Sodium Chloride 0.9% 50 ml @ 100 mls/hr IVPB ONCE STA Rx#:[id number] Intake, IV Titration 4250 Amount Azithromycin 250 mg In 250 Sodium Chloride 0.9% 250 ml @ 250 mls/hr IVPB DAILY BEL[facility] Rx#:[id number] Sodium Chloride 0.9% 1, 4000 000 ml @ 999 mls/hr IV . Q1H1M STA Rx#:[id number] Oral 150 Output: Urine 465 240 30 Other: Voiding Method Indwelling Catheter Indwelling Catheter Weight 96.2 kg 97.8 kg GENERAL EXAM: Arousable, on 70-year-old male patient, on 4 L nasal cannula, fairly comfortable in no apparent distress. HEAD: Normocephalic. EYES: Normal reaction of pupils, equal size. NOSE: Clear with pink turbinates. THROAT: No erythema or exudates. NECK: No masses, no JVD. CHEST: No chest wall deformity. LUNGS: Equal air entry with scattered rhonchi. CVS: S1 and S2 normal with no audible murmur, regular rhythm. ABDOMEN: No hepatosplenomegaly, normal bowel sounds, no guarding or rigidity. SPINE: No scoliosis or deformity SKIN: No rashes CENTRAL NERVOUS SYSTEM: Arousable, tone is normal in all 4 extremities. EXTREMITIES: There is no peripheral edema. No clubbing, no cyanosis. Peripheral pulses are intact.am Results - Laboratory Findings CBC and BMP: 04/02/21 03:49 04/02/21 03:49 ABG ABG pH 7.46 (7.35-7.45) H 04/01/21 16:55 ABG pCO2 22 mmHg (35-45) L 04/01/21 16:55 ABG pO2 78 mmHg (83-108) L 04/01/21 16:55 ABG O2 Saturation 95.9 % (94-97) 04/01/21 16:55 PT/INR, D-dimer PT 24.6 sec (9.0-12.0) H 04/01/21 05:47 INR 2.5 (<1.2) H 04/01/21 05:47 Abnormal lab findings: Abnormal Labs 04/01/21 04/01/21 04/01/21 05:47 05:47 05:47 RBC 3.63 L Hgb 12.1 L Hct MCV 107.3 H MCHC Lymphocytes # Macrocytosis PT 24.6 H INR 2.5 H APTT 31.0 H ABG pH ABG pCO2 ABG pO2 ABG HCO3 ABG Total CO2 Sodium Potassium Chloride Carbon Dioxide Creatinine Glucose POC Glucose (mg/dL) Plasma Lactic Acid Delbert Calcium Delta Bilirubin AST Alkaline Phosphatase Troponin I Total Protein Albumin Urine Protein Trace H Urine Blood Large H Urine RBC 98 H Urine WBC 7 H Calcium Oxalate Crystal Moderate H Urine Bacteria Rare H Hyaline Casts 3 H Urine Mucus Rare H 04/01/21 04/01/21 04/01/21 05:47 05:47 05:47 RBC Hgb Hct MCV MCHC Lymphocytes # Macrocytosis PT INR APTT ABG pH ABG pCO2 ABG pO2 ABG HCO3 ABG Total CO2 Sodium 135 L Potassium Chloride Carbon Dioxide 18 L Creatinine 1.81 H Glucose POC Glucose (mg/dL) Plasma Lactic Acid Delbert 3.9 H* Calcium 8.3 L Delta Bilirubin AST 64 H Alkaline Phosphatase 622 H Troponin I 0.039 H* Total Protein 6.2 L Albumin 2.8 L Urine Protein Urine Blood Urine RBC Urine WBC Calcium Oxalate Crystal Urine Bacteria Hyaline Casts Urine Mucus 04/01/21 04/01/21 04/01/21 08:39 11:48 11:48 RBC Hgb Hct MCV MCHC Lymphocytes # Macrocytosis PT INR APTT ABG pH ABG pCO2 ABG pO2 ABG HCO3 ABG Total CO2 Sodium Potassium Chloride Carbon Dioxide Creatinine Glucose POC Glucose (mg/dL) Plasma Lactic Acid Delbert 3.4 H* 4.0 H* Calcium Delta Bilirubin AST Alkaline Phosphatase Troponin I 0.038 H* Total Protein Albumin Urine Protein Urine Blood Urine RBC Urine WBC Calcium Oxalate Crystal Urine Bacteria Hyaline Casts Urine Mucus 04/01/21 04/01/21 04/01/21 15:27 16:49 16:55 RBC Hgb Hct MCV MCHC Lymphocytes # Macrocytosis PT INR APTT ABG pH 7.46 H ABG pCO2 22 L ABG pO2 78 L ABG HCO3 15 L ABG Total CO2 16 L Sodium Potassium Chloride Carbon Dioxide Creatinine Glucose POC Glucose (mg/dL) 137 H Plasma Lactic Acid Delbert 3.7 H* Calcium Delta Bilirubin AST Alkaline Phosphatase Troponin I Total Protein Albumin Urine Protein Urine Blood Urine RBC Urine WBC Calcium Oxalate Crystal Urine Bacteria Hyaline Casts Urine Mucus 04/01/21 04/01/21 04/01/21 17:25 17:25 18:22 RBC 3.39 L Hgb 11.5 L Hct 36.3 L MCV 107.1 H MCHC Lymphocytes # 0.4 L Macrocytosis PT INR APTT ABG pH ABG pCO2 ABG pO2 ABG HCO3 ABG Total CO2 Sodium Potassium Chloride 108 H Carbon Dioxide 15 L Creatinine 1.53 H Glucose 149 H POC Glucose (mg/dL) 144 H Plasma Lactic Acid Delbert Calcium 7.1 L Delta Bilirubin 0.9 H AST 68 H Alkaline Phosphatase 558 H Troponin I Total Protein 6.0 L Albumin 2.7 L Urine Protein Urine Blood Urine RBC Urine WBC Calcium Oxalate Crystal Urine Bacteria Hyaline Casts Urine Mucus 04/01/21 04/01/21 04/02/21 18:36 21:35 00:01 RBC Hgb Hct MCV MCHC Lymphocytes # Macrocytosis PT INR APTT ABG pH ABG pCO2 ABG pO2 ABG HCO3 ABG Total CO2 Sodium Potassium Chloride Carbon Dioxide Creatinine Glucose POC Glucose (mg/dL) 143 H Plasma Lactic Acid Delbert 3.5 H* 2.4 H* Calcium Delta Bilirubin AST Alkaline Phosphatase Troponin I Total Protein Albumin Urine Protein Urine Blood Urine RBC Urine WBC Calcium Oxalate Crystal Urine Bacteria Hyaline Casts Urine Mucus 04/02/21 04/02/21 04/02/21 03:49 03:49 06:08 RBC 3.02 L Hgb 9.9 L D Hct 32.9 L MCV 108.9 H MCHC 30.2 L Lymphocytes # 0.5 L Macrocytosis Marked A PT INR APTT ABG pH ABG pCO2 ABG pO2 ABG HCO3 ABG Total CO2 Sodium 136 L Potassium 3.2 L Chloride 110 H Carbon Dioxide 17 L Creatinine 1.58 H Glucose 135 H POC Glucose (mg/dL) 109 H Plasma Lactic Acid Delbert Calcium 6.7 L Delta Bilirubin AST Alkaline Phosphatase 482 H Troponin I Total Protein 5.5 L Albumin 2.4 L Urine Protein Urine Blood Urine RBC Urine WBC Calcium Oxalate Crystal Urine Bacteria Hyaline Casts Urine Mucus - Diagnostic Findings Chest x-ray: image reviewed Assessment and Plan Assessment: 1 Altered mental status with generalized weakness and falls secondary to suspected alcohol withdrawal syndrome 2 Daily alcohol use 3 Acute hypoxemic respiratory failure secondary to community-acquired versus aspiration pneumonia 4 Coagulopathy suspect secondary to liver disease 5 Acute renal failure 6 History of hypertension Plan: The patient was seen and evaluated by Dr. Presley Chest x-ray and labs reviewed Obtain ultrasound of the abdomen to rule out significant ascites Aspiration precautions Continue CIWA protocol Continue antibiotics for now, pro-calcitonin pending We will continue to follow and make further recommendations based on his clinical status I, the cosigning physician, performed a history & physical examination of the patient. Lungs sounds bilateral scattered rhonchi. Maintaining good O2 saturations in the 90s on 4 L/m per nasal cannula. I discussed the assessment and plan of care with my nurse practitioner, Suze Appiah. I attest to the above note as dictated by her. Time with Patient: Greater than 30
--- NOTE | 2021-04-02 11:17 | P.CNNES ---
History of Present Illness Consult date: 04/02/21 Requesting physician: Eliza Flores Reason for Consult: seizure History of Present Illness: This is a 70-year-old gentleman with medical history of hypertension presented emergency department on 04/01/2021 after a fall. The patient has been having multiple falls recently and been having increased generalized weakness. He drinks on a daily basis. He drinks 1 gallon a daily and per the ICU nurse she was notified he has not been eating for the past 2 weeks. Per the patient's nurse it is suspected that patient is in withdrawl and unknown last drink. Patient is on CIWA protocol for his alcohol use. In the hospital the patient was minimally responsive. He is on Azithromycin and Ceftriaxone for suspected pneumonia. Some of the workup in the hospital consisted of: Initial vital signs are: Blood pressure of 171/88, heart rate of 93, respiratory of 17, pulse ox of 97% room air and temperature of 98.[address] of the head is reported as cerebral atrophy. No acute intracranial abnormality. Atrophy increase compared to old exam. Chest x-rays reported as there is increased left lower lobe pneumonia compared to the exam this morning. EKG is reported as sinus rhythm with premature spur ventricular couplets is at. Inferior infarct, age undetermined. Abnormal EKG. Patient CBC with differential as the patient is the one blood cell has been normal 9.9 thousand. Patient MCV is 107 which is elevated and hemoglobin is 12.1 which is slightly low. Initial creatinine is 1.5. Slightly elevated, AST of 68 was slightly elevated but the ALTs 24 which is considered within normal limits. The glucose is 149 and it's the serum. Initial calcium 7.1 which is considered low but there is no ionized calcium. Repeated calcium 6.7. Phosphorus: 4.3 (normal), adhesions 1.9 which is considered within normal l imits. Patient plasma lactic acid level is 3.9 initial presentation in the repeated is 2.4. Alcohol level was less than 10. Review of Systems Review of system: The 12 point system was reviewed and apparent positive and negative per HPI. Past Medical History Past Medical History: Hypertension History of Any Multi-Drug Resistant Organisms: None Reported Past Surgical History: No Surgical Hx Reported Past Psychological History: No Psychological Hx Reported Smoking Status: Current every day smoker Past Alcohol Use History: Occasional Past Drug Use History: None Reported Medications and Allergies Home Medications Medication Instructions Recorded Confirmed Type No Known Home Medications 04/01/21 04/01/21 History Allergies Allergy/AdvReac Type Severity Reaction Status Date / Time No Known Allergies Allergy Verified 04/01/21 07:20 Physical Examination - Vital Signs Vital Signs: Vital Signs Temp Pulse Pulse Resp BP BP Pulse Ox 04/02/21 07:00 84 30 H 132/96 95 04/02/21 06:00 80 18 118/75 93 L 04/02/21 05:00 75 18 115/74 93 L 04/02/21 04:00 97.6 F 74 18 117/77 90 L 04/02/21 03:27 79 04/02/21 03:13 80 04/02/21 03:00 86 21 124/76 94 L 04/02/21 02:30 95 30 H 93 L 04/02/21 02:00 86 23 137/93 93 L 04/02/21 01:30 84 21 92 L 04/02/21 01:00 89 28 H 128/98 93 L 04/02/21 00:30 81 20 93 L 04/02/21 00:00 98.1 F 82 19 114/75 92 L 04/01/21 23:45 83 04/01/21 23:30 78 20 91 L 04/01/21 23:00 80 20 115/79 92 L 04/01/21 22:30 73 19 93 L 04/01/21 22:00 85 22 125/85 93 L 04/01/21 21:30 84 21 115/79 93 L 04/01/21 21:00 86 22 141/100 91 L 04/01/21 20:30 90 24 130/95 94 L 04/01/21 20:00 98 F 92 23 130/91 94 L 04/01/21 19:58 92 04/01/21 19:36 96 96 04/01/21 19:30 89 22 143/91 92 L 04/01/21 19:00 87 24 140/102 94 L 04/01/21 18:30 97.9 F 91 26 H 148/96 93 L 04/01/21 18:25 90 29 H 95 04/01/21 18:01 102 H 24 140/56 94 L 04/01/21 16:26 90 04/01/21 16:16 88 04/01/21 14:00 95 21 04/01/21 12:27 92 04/01/21 12:17 96 04/01/21 12:11 98.4 F 95 21 134/84 95 04/01/21 08:37 97.8 F 92 24 156/80 92 L 04/01/21 08:00 21 04/01/21 07:56 98.0 F 90 16 171/88 99 Intake and Output 04/01/21 04/02/21 04/02/21 22:59 06:59 14:59 Intake Total 5100 2040 130 Output Total 465 240 30 Balance 4635 1800 100 Intake: IV 700 2040 130 Potassium Chloride 10 meq 200 In Water For Injection 1 100ml.bag @ 100 mls/hr IVPB Q1H [facility] Rx#: [id number] Sodium Chloride 0.9% 1, 450 1040 130 000 ml @ 130 mls/hr IV . Q7H42M [facility] Rx#:[id number] Sodium Chloride 0.9% 1, 1000 000 ml @ 999 mls/hr IV . Q1H1M ONE Rx#:[id number] cefTRIAXone 2 gm In 50 Sodium Chloride 0.9% 50 ml @ 100 mls/hr IVPB ONCE STA Rx#:[id number] Intake, IV Titration 4250 Amount Azithromycin 250 mg In 250 Sodium Chloride 0.9% 250 ml @ 250 mls/hr IVPB DAILY [facility] Rx#:[id number] Sodium Chloride 0.9% 1, 4000 000 ml @ 999 mls/hr IV . Q1H1M STA Rx#:[id number] Oral 150 Output: Urine 465 240 30 Other: Voiding Method Indwelling Catheter Indwelling Catheter Weight 96.2 kg 97.8 kg GENERAL: The patient is lying in bed and is moderate to severe respiratory distress. CHEST: The heart rate is regular rate rhythm. No murmurs to auscultation. No carotid bruit bilaterally. LUNG: Clear to auscultation bilaterally. Is tachypneic and seems very short of breath. ABDOMEN/GI: Bowel sounds present in all 4 quadrants. No tenderness to palpation throughout. NEUROLOGICAL: Limited because of patient condition. Higher mental function: The patient is significantly drowsy and was able to tell me his name correctly. He is able to show me a thrumbs up on both sides. He is otherwise not following commands or verbalizing. Cranial nerves: Upon briefly opening his eyes, pupils are round, equal and reactive to light . Could not assess visual burks. Could not assess extraocular movement. No facial weakness. Could not assess the rest of cranial nerves because of his condition. Motor: The strength is limited but is moving bilateral lower extremities above gravity. Had hard time assessing each individual strength because of his condition. Normal tone and bulk. Cerebellum: Could not assess. Sensation: He frowns to painful stimuli throughout. Reflexes (right/left):2+ throughout. Plantars are mute bilaterally. Results - Laboratory Findings CBC and BMP: 04/02/21 03:49 04/02/21 03:49 Abnormal Lab Findings: Abnormal Labs 04/01/21 04/01/21 04/01/21 05:47 05:47 05:47 RBC 3.63 L Hgb 12.1 L Hct MCV 107.3 H MCHC Lymphocytes # Macrocytosis PT 24.6 H INR 2.5 H APTT 31.0 H ABG pH ABG pCO2 ABG pO2 ABG HCO3 ABG Total CO2 Sodium Potassium Chloride Carbon Dioxide Creatinine Glucose POC Glucose (mg/dL) Plasma Lactic Acid Delbert Calcium Delta Bilirubin AST Alkaline Phosphatase Troponin I Total Protein Albumin Urine Protein Trace H Urine Blood Large H Urine RBC 98 H Urine WBC 7 H Calcium Oxalate Crystal Moderate H Urine Bacteria Rare H Hyaline Casts 3 H Urine Mucus Rare H 04/01/21 04/01/21 04/01/21 05:47 05:47 05:47 RBC Hgb Hct MCV MCHC Lymphocytes # Macrocytosis PT INR APTT ABG pH ABG pCO2 ABG pO2 ABG HCO3 ABG Total CO2 Sodium 135 L Potassium Chloride Carbon Dioxide 18 L Creatinine 1.81 H Glucose POC Glucose (mg/dL) Plasma Lactic Acid Delbert 3.9 H* Calcium 8.3 L Delta Bilirubin AST 64 H Alkaline Phosphatase 622 H Troponin I 0.039 H* Total Protein 6.2 L Albumin 2.8 L Urine Protein Urine Blood Urine RBC Urine WBC Calcium Oxalate Crystal Urine Bacteria Hyaline Casts Urine Mucus 04/01/21 04/01/21 04/01/21 08:39 11:48 11:48 RBC Hgb Hct MCV MCHC Lymphocytes # Macrocytosis PT INR APTT ABG pH ABG pCO2 ABG pO2 ABG HCO3 ABG Total CO2 Sodium Potassium Chloride Carbon Dioxide Creatinine Glucose POC Glucose (mg/dL) Plasma Lactic Acid Delbert 3.4 H* 4.0 H* Calcium Delta Bilirubin AST Alkaline Phosphatase Troponin I 0.038 H* Total Protein Albumin Urine Protein Urine Blood Urine RBC Urine WBC Calcium Oxalate Crystal Urine Bacteria Hyaline Casts Urine Mucus 04/01/21 04/01/21 04/01/21 15:27 16:49 16:55 RBC Hgb Hct MCV MCHC Lymphocytes # Macrocytosis PT INR APTT ABG pH 7.46 H ABG pCO2 22 L ABG pO2 78 L ABG HCO3 15 L ABG Total CO2 16 L Sodium Potassium Chloride Carbon Dioxide Creatinine Glucose POC Glucose (mg/dL) 137 H Plasma Lactic Acid Delbert 3.7 H* Calcium Delta Bilirubin AST Alkaline Phosphatase Troponin I Total Protein Albumin Urine Protein Urine Blood Urine RBC Urine WBC Calcium Oxalate Crystal Urine Bacteria Hyaline Casts Urine Mucus 04/01/21 04/01/21 04/01/21 17:25 17:25 18:22 RBC 3.39 L Hgb 11.5 L Hct 36.3 L MCV 107.1 H MCHC Lymphocytes # 0.4 L Macrocytosis PT INR APTT ABG pH ABG pCO2 ABG pO2 ABG HCO3 ABG Total CO2 Sodium Potassium Chloride 108 H Carbon Dioxide 15 L Creatinine 1.53 H Glucose 149 H POC Glucose (mg/dL) 144 H Plasma Lactic Acid Delbert Calcium 7.1 L Delta Bilirubin 0.9 H AST 68 H Alkaline Phosphatase 558 H Troponin I Total Protein 6.0 L Albumin 2.7 L Urine Protein Urine Blood Urine RBC Urine WBC Calcium Oxalate Crystal Urine Bacteria Hyaline Casts Urine Mucus 04/01/21 04/01/21 04/02/21 18:36 21:35 00:01 RBC Hgb Hct MCV MCHC Lymphocytes # Macrocytosis PT INR APTT ABG pH ABG pCO2 ABG pO2 ABG HCO3 ABG Total CO2 Sodium Potassium Chloride Carbon Dioxide Creatinine Glucose POC Glucose (mg/dL) 143 H Plasma Lactic Acid Delbert 3.5 H* 2.4 H* Calcium Delta Bilirubin AST Alkaline Phosphatase Troponin I Total Protein Albumin Urine Protein Urine Blood Urine RBC Urine WBC Calcium Oxalate Crystal Urine Bacteria Hyaline Casts Urine Mucus 04/02/21 04/02/21 04/02/21 03:49 03:49 06:08 RBC 3.02 L Hgb 9.9 L D Hct 32.9 L MCV 108.9 H MCHC 30.2 L Lymphocytes # 0.5 L Macrocytosis Marked A PT INR APTT ABG pH ABG pCO2 ABG pO2 ABG HCO3 ABG Total CO2 Sodium 136 L Potassium 3.2 L Chloride 110 H Carbon Dioxide 17 L Creatinine 1.58 H Glucose 135 H POC Glucose (mg/dL) 109 H Plasma Lactic Acid Delbert Calcium 6.7 L Delta Bilirubin AST Alkaline Phosphatase 482 H Troponin I Total Protein 5.5 L Albumin 2.4 L Urine Protein Urine Blood Urine RBC Urine WBC Calcium Oxalate Crystal Urine Bacteria Hyaline Casts Urine Mucus Assessment and Plan Assessment: * Altered mental status likely due alcohol withdrawl. Has toxic-metabolic encephalopathy. Also altered mental status due to suspected pneumonia. * Significant alcohol use with alcohol level less than 10 * Macrocytic anemia possibly due to significant alcohol use * Acute kidney insufficiency * Acute hypoxemic respiratory failure due to CAP vs aspiration pneumonia * History of multiple falls. * History of hypertension Plan: I ordered an EEG. I will not start the patient on anti-epileptic drugs unless there is epileptiform discharges or seizure on the EEG. Ordered vitamin B12, folate, TSH level I ordered ionized calcium. If the ionized calcium is low recommend electrolyte imbalance correction to the primary/IC team. Patient is on thiamine 100 mg 1 tablet twice a day. On CIWA protocol and will defer management to the primary team and ICU team. We'll defer the rest of the medical measure the primary/ICU team. The plan is discussed with the patient's nurse Thank you for the consultation. Celso Presley MD Neuro-hospitalist. Time with Patient: Greater than 30
[2021-04-02 11:46] LABS: Glucose,Whole Blood 120 mg/dL (75-99)
--- NOTE | 2021-04-02 12:08 | US ---
EXAMINATION TYPE: US abdomen limited DATE OF EXAM: 04/02/2021 COMPARISON: NONE CLINICAL HISTORY: ascites. Ascites check Exam done portable in ICU Ascites seen within all 4 quadrants IMPRESSION: Ascites.
[2021-04-02 17:07] LABS: Glucose,Whole Blood 111 mg/dL (75-99)
--- NOTE | 2021-04-02 17:30 | P.PN ---
Subjective Progress Note Date: 04/02/21 Neri Kurtz is a 70 yo M with PMH of alcoholism, drinks a fifth of whiskey daily who presented to the ED with increasing weakness and falls at home. He states that he had not been feeling like himself, stumbling and after falling at home he decided to come to the ED. He denies nausea, vomiting or diarrhea. He does endorse cough. Pt denies sweats or tremors. On presentation pt hypertensive, labs with Hgb 12, Cr 1.8, lactic 4. AST elevated, trop 0.04, BNP 3300. CXR with L basilar infiltrate. 04/02/2021 yesterday afternoon discovered to be nearly obtunded,lethargic, minimally responsive, received IV push Lasix and transferred to ICU with suspicions of EtOH seizures. Maintained on seizure precautions with seizure pads. Neurology consult in place, recommendations pending. Continues on IV fluid resuscitation, Haldol and CIWA protocol,recent seawall score 17. Remains lethargic, minimally conversant. Yesterday reported he drinks a gallon of whiskey daily. Brain CT for cerebral atrophy with no acute intracranial abnormality, atrophy increased compared to prior exam. ABGs noted. Chest x-ray reporting increasing left lower lobe pneumonia. Maintaining O2 sats in the 90s on 4 L nasal cannula. Pro-calcitonin elevated, 0.31. Maintained on azithromycin, ceftriaxone. Afebrile, normal WBC. Abdominal x-ray reported limited exam, nonacute, no free air, multiple old left-sided rib fractures. Abdominal ultrasound reporting ascites. Troponin 0.039, 0.038, 0.031. Hemoglobin 9.9, platelets 263, INR 2.5. Potassium 3.2, magnesium 1.9, creatinine 1.5. Alk phos trending down. Objective - Vital Signs Vital signs: Vital Signs Temp 98.1 F 04/02/21 16:00 Pulse 83 04/02/21 16:00 Resp 25 H 04/02/21 16:00 BP 117/89 04/02/21 16:00 Pulse Ox 92 L 04/02/21 16:00 Intake & Output 04/01/21 04/02/21 04/02/21 18:59 06:59 18:59 Intake Total 4400 2740 1800 Output Total 65 640 320 Balance 4335 2100 1480 Weight 74.843 kg 97.8 kg Intake: IV 2740 1300 Potassium Chloride 10 meq 200 In Water For Injection 1 100ml.bag @ 100 mls/hr IVPB Q1H [facility] Rx#: [id number] Sodium Chloride 0.9% 1, 1490 1300 000 ml @ 130 mls/hr IV . Q7H42M [facility] Rx#:[id number] Sodium Chloride 0.9% 1, 1000 000 ml @ 999 mls/hr IV . Q1H1M ONE Rx#:[id number] cefTRIAXone 2 gm In 50 Sodium Chloride 0.9% 50 ml @ 100 mls/hr IVPB ONCE STA Rx#:[id number] Intake, IV Titration 4250 500 Amount Azithromycin 250 mg In 250 Sodium Chloride 0.9% 250 ml @ 250 mls/hr IVPB DAILY [facility] Rx#:[id number] Magnesium Sulfate-D5w Pmx 100 1 gm In Dextrose/Water 1 100ml.bag @ 100 mls/hr IVPB Q1H [facility] Rx#: [id number] Potassium Chloride 10 meq 400 In Water For Injection 1 100ml.bag @ 100 mls/hr IVPB Q1HR [facility] Rx#: [id number] Sodium Chloride 0.9% 1, 4000 000 ml @ 999 mls/hr IV . Q1H1M STA Rx#:[id number] Oral 150 Output: Urine 65 640 320 Other: Voiding Method Bedside Commode Indwelling Catheter Indwelling Catheter Urinal - Exam General: Arousable, Lethargic,mumbling NAD,Vitals reviewed Eyes: PERRL, EOMI, conjunctiva normal HENT: normocephalic, mucus membranes dry Neck: supple, no JVD Lungs: Lungs diminished with scattered rhonchi. No expiratory wheezing. CV: tachycardic and rhythm, no murmur. Peripheral pulses 2+ Abdomen: soft,distended, no organomegaly, positive bowel sounds Skin: warm and dry. Neuro: Limited exam, unable to assess at this time. - Labs CBC & Chem 7: 04/02/21 03:49 04/02/21 03:49 Labs: Abnormal Lab Results - Last 24 Hours (Table) 04/01/21 04/01/21 04/01/21 Range/Units 05:47 16:49 16:55 RBC (4.30-5.90) m/uL Hgb (13.0-17.5) gm/dL Hct (39.0-53.0) % MCV (80.0-100.0) fL MCHC (31.0-37.0) g/dL Lymphocytes # (1.0-4.8) k/uL Macrocytosis ABG pH 7.46 H (7.35-7.45) ABG pCO2 22 L (35-45) mmHg ABG pO2 78 L (83-108) mmHg ABG HCO3 15 L (21-25) mmol/L ABG Total CO2 16 L (19-24) mmol/L Sodium (137-145) mmol/L Potassium (3.5-5.1) mmol/L Chloride (98-107) mmol/L Carbon Dioxide (22-30) mmol/L Creatinine (0.66-1.25) mg/dL Glucose (74-99) mg/dL POC Glucose (mg/dL) 137 H (75-99) mg/dL Plasma Lactic Acid Delbert (0.7-2.0) mmol/L Calcium (8.4-10.2) mg/dL Ionized Calcium Valerie (4.5-5.3) mg/dL Delta Bilirubin (0.0-0.2) mg/dL AST (17-59) U/L Alkaline Phosphatase (38-126) U/L Total Protein (6.3-8.2) g/dL Albumin (3.5-5.0) g/dL Procalcitonin (0.02-0.09) ng/mL Urine Protein Trace H (Negative) Urine Blood Large H (Negative) Urine RBC 98 H (0-5) /hpf Urine WBC 7 H (0-5) /hpf Calcium Oxalate Crystal Moderate H (None) /hpf Urine Bacteria Rare H (None) /hpf Hyaline Casts 3 H (0-2) /lpf Urine Mucus Rare H (None) /hpf 04/01/21 04/01/21 04/01/21 Range/Units 17:25 17:25 18:22 RBC 3.39 L (4.30-5.90) m/uL Hgb 11.5 L (13.0-17.5) gm/dL Hct 36.3 L (39.0-53.0) % MCV 107.1 H (80.0-100.0) fL MCHC (31.0-37.0) g/dL Lymphocytes # 0.4 L (1.0-4.8) k/uL Macrocytosis ABG pH (7.35-7.45) ABG pCO2 (35-45) mmHg ABG pO2 (83-108) mmHg ABG HCO3 (21-25) mmol/L ABG Total CO2 (19-24) mmol/L Sodium (137-145) mmol/L Potassium (3.5-5.1) mmol/L Chloride 108 H (98-107) mmol/L Carbon Dioxide 15 L (22-30) mmol/L Creatinine 1.53 H (0.66-1.25) mg/dL Glucose 149 H (74-99) mg/dL POC Glucose (mg/dL) 144 H (75-99) mg/dL Plasma Lactic Acid Delbert (0.7-2.0) mmol/L Calcium 7.1 L (8.4-10.2) mg/dL Ionized Calcium Valerie (4.5-5.3) mg/dL Delta Bilirubin 0.9 H (0.0-0.2) mg/dL AST 68 H (17-59) U/L Alkaline Phosphatase 558 H (38-126) U/L Total Protein 6.0 L (6.3-8.2) g/dL Albumin 2.7 L (3.5-5.0) g/dL Procalcitonin (0.02-0.09) ng/mL Urine Protein (Negative) Urine Blood (Negative) Urine RBC (0-5) /hpf Urine WBC (0-5) /hpf Calcium Oxalate Crystal (None) /hpf Urine Bacteria (None) /hpf Hyaline Casts (0-2) /lpf Urine Mucus (None) /hpf 04/01/21 04/01/21 04/02/21 Range/Units 18:36 21:35 00:01 RBC (4.30-5.90) m/uL Hgb (13.0-17.5) gm/dL Hct (39.0-53.0) % MCV (80.0-100.0) fL MCHC (31.0-37.0) g/dL Lymphocytes # (1.0-4.8) k/uL Macrocytosis ABG pH (7.35-7.45) ABG pCO2 (35-45) mmHg ABG pO2 (83-108) mmHg ABG HCO3 (21-25) mmol/L ABG Total CO2 (19-24) mmol/L Sodium (137-145) mmol/L Potassium (3.5-5.1) mmol/L Chloride (98-107) mmol/L Carbon Dioxide (22-30) mmol/L Creatinine (0.66-1.25) mg/dL Glucose (74-99) mg/dL POC Glucose (mg/dL) 143 H (75-99) mg/dL Plasma Lactic Acid Delbert 3.5 H* 2.4 H* (0.7-2.0) mmol/L Calcium (8.4-10.2) mg/dL Ionized Calcium Valerie (4.5-5.3) mg/dL Delta Bilirubin (0.0-0.2) mg/dL AST (17-59) U/L Alkaline Phosphatase (38-126) U/L Total Protein (6.3-8.2) g/dL Albumin (3.5-5.0) g/dL Procalcitonin (0.02-0.09) ng/mL Urine Protein (Negative) Urine Blood (Negative) Urine RBC (0-5) /hpf Urine WBC (0-5) /hpf Calcium Oxalate Crystal (None) /hpf Urine Bacteria (None) /hpf Hyaline Casts (0-2) /lpf Urine Mucus (None) /hpf 04/02/21 04/02/21 04/02/21 Range/Units 03:49 03:49 03:55 RBC 3.02 L (4.30-5.90) m/uL Hgb 9.9 L D (13.0-17.5) gm/dL Hct 32.9 L (39.0-53.0) % MCV 108.9 H (80.0-100.0) fL MCHC 30.2 L (31.0-37.0) g/dL Lymphocytes # 0.5 L (1.0-4.8) k/uL Macrocytosis Marked A ABG pH (7.35-7.45) ABG pCO2 (35-45) mmHg ABG pO2 (83-108) mmHg ABG HCO3 (21-25) mmol/L ABG Total CO2 (19-24) mmol/L Sodium 136 L (137-145) mmol/L Potassium 3.2 L (3.5-5.1) mmol/L Chloride 110 H (98-107) mmol/L Carbon Dioxide 17 L (22-30) mmol/L Creatinine 1.58 H (0.66-1.25) mg/dL Glucose 135 H (74-99) mg/dL POC Glucose (mg/dL) (75-99) mg/dL Plasma Lactic Acid Delbert (0.7-2.0) mmol/L Calcium 6.7 L (8.4-10.2) mg/dL Ionized Calcium Valerie (4.5-5.3) mg/dL Delta Bilirubin (0.0-0.2) mg/dL AST (17-59) U/L Alkaline Phosphatase 482 H (38-126) U/L Total Protein 5.5 L (6.3-8.2) g/dL Albumin 2.4 L (3.5-5.0) g/dL Procalcitonin 0.31 H (0.02-0.09) ng/mL Urine Protein (Negative) Urine Blood (Negative) Urine RBC (0-5) /hpf Urine WBC (0-5) /hpf Calcium Oxalate Crystal (None) /hpf Urine Bacteria (None) /hpf Hyaline Casts (0-2) /lpf Urine Mucus (None) /hpf 04/02/21 04/02/21 04/02/21 Range/Units 06:08 11:32 11:44 RBC (4.30-5.90) m/uL Hgb (13.0-17.5) gm/dL Hct (39.0-53.0) % MCV (80.0-100.0) fL MCHC (31.0-37.0) g/dL Lymphocytes # (1.0-4.8) k/uL Macrocytosis ABG pH (7.35-7.45) ABG pCO2 (35-45) mmHg ABG pO2 (83-108) mmHg ABG HCO3 (21-25) mmol/L ABG Total CO2 (19-24) mmol/L Sodium (137-145) mmol/L Potassium (3.5-5.1) mmol/L Chloride (98-107) mmol/L Carbon Dioxide (22-30) mmol/L Creatinine (0.66-1.25) mg/dL Glucose (74-99) mg/dL POC Glucose (mg/dL) 109 H 120 H (75-99) mg/dL Plasma Lactic Acid Delbert (0.7-2.0) mmol/L Calcium (8.4-10.2) mg/dL Ionized Calcium Valerie 4.0 L (4.5-5.3) mg/dL Delta Bilirubin (0.0-0.2) mg/dL AST (17-59) U/L Alkaline Phosphatase (38-126) U/L Total Protein (6.3-8.2) g/dL Albumin (3.5-5.0) g/dL Procalcitonin (0.02-0.09) ng/mL Urine Protein (Negative) Urine Blood (Negative) Urine RBC (0-5) /hpf Urine WBC (0-5) /hpf Calcium Oxalate Crystal (None) /hpf Urine Bacteria (None) /hpf Hyaline Casts (0-2) /lpf Urine Mucus (None) /hpf Assessment and Plan Assessment: 1. Alcohol withdrawal with seizure. 2. Acute kidney injury, secondary to alcohol abuse. 3. LLL infiltrate, possibly community-acquired, possibly aspiration pneumonia 4. Acute hypoxic respiratory failure secondary to the above 5. Elevated AST 6. Elevated lactic Plan: Continue on current medication regime ,monitoring and symptomatic treatment. Maintain IV fluids, CIWA protocol, antibiotics. Seizure and aspiration precautions. Neurology consult in place, recommendations pending. Avoid nephrotoxins. Prognosis guarded given multiple complex medical issues. The impression and plan of care has been dictated as directed. : I performed a history and examination of this patient, discussed the same with the dictator. I agree with the dictator's note ,documented as a scribe. Any additional findings or plans will be noted.
--- NOTE | 2021-04-02 18:09 | EEG ---
ELECTROENCEPHALOGRAM REPORT DATE OF SERVICE: 04/02/2021 CLINICAL HISTORY: This is a 70-year-old gentleman with history of significant alcohol use and currently has altered mental status. This video EEG is obtained to evaluate for seizure and epileptiform activity. RELEVANT MEDICATIONS: Ativan. EEG TYPE: A routine 21 channel EEG is performed with video using the 10/20 electrode placement system. DESCRIPTION: The background consists of low to moderate voltage of nonrhythmic diffuse 1-2 hertz delta activity. There is significant myogenic artifact. There is no physiological sleep architecture seen. There is no focal slowing appreciated. Interictal and ictal is none. ACTIVATION PROCEDURE: Photic stimulation did not evoke a posterior driving response. Hyperventilation is not done. CLINICAL INTERPRETATION: This is an abnormal routine EEG. The background slowing is suggestive of severe encephalopathy, likely due to toxic-metabolic encephalopathy. There are no focal slowing, epileptiform discharge or seizure on the EEG. Clinical correlation is recommended. JOHNY / CARLN: [id number] / MTDD
[2021-04-02 23:20] LABS: Glucose,Whole Blood 99 mg/dL (75-99)
[2021-04-03] MEDS: LORazepam 2 MG/ML INJ IV PRN ×7 (02:59→22:49)
[2021-04-03] MEDS: HALOPERIDOL LACTATE 5 MG/ML 1 ML VIAL IVP PRN ×3 (03:34→23:22)
[2021-04-03 03:56] LABS: Folate, Serum 13.2 ng/mL
[2021-04-03 04:44] LABS: HGB 11.3 gm/dL (13.0-17.5); Hypochromasia Slight; MCH 33.3 pg (25.0-35.0); MCHC 30.4 g/dL (31.0-37.0); MCV 109.2 fL (80.0-100.0); Mean Platelet Volume 8.3; Platelet Count 294 k/uL (150-450); RBC 3.38 m/uL (4.30-5.90); RDW 14.5 % (11.5-15.5); WBC 16.9 k/uL (3.8-10.6)
[2021-04-03 04:45] LABS: Macrocytosis Marked
[2021-04-03] MEDS: SODIUM CHLORIDE 0.9% 1,000 ML IV SCH ×2 (05:00→16:54)
[2021-04-03 05:03] LABS: Glucose,Whole Blood 89 mg/dL (75-99)
[2021-04-03 05:04] LABS: Calcium 6.9 mg/dL (8.4-10.2)
[2021-04-03 05:20] LABS: Potassium 4.5 mmol/L (3.5-5.1)
[2021-04-03] MEDS: INSULIN ASPART (NovoLOG) 100 UNIT/ML VIAL SQ SCH ×3 (07:06→18:18)
[2021-04-03] MEDS: THIAMINE 100 MG TAB PO SCH ×2 (07:07→16:58)
--- NOTE | 2021-04-03 08:45 | XR ---
EXAMINATION TYPE: XR chest 1V portable DATE OF EXAM: 04/03/2021 COMPARISON: 11/01/2020 HISTORY: Short of breath TECHNIQUE: Single frontal view of the chest is obtained. FINDINGS: There is new extensive airspace disease in the right upper and midlung zone. Left basilar pleural-parenchymal disease is again seen with possible deep sulcus and pneumothorax cannot be defini tively excluded. Please correlate clinically. Cardiac silhouette is unchanged. IMPRESSION: There is new extensive airspace disease in the right upper and midlung zone. Left basilar pleural-par enchymal disease is again seen with possible deep sulcus and pneumothorax cannot be definitively excl uded. Please correlate clinically.
[2021-04-03] MEDS: methylPREDNISolone SOD SUCCI 125 MG/2 ML VIAL IV SCH ×3 (10:19→18:11)
[2021-04-03] MEDS: PANTOPRAZOLE 40 MG/10 ML VIAL IV SCH (10:20)
--- NOTE | 2021-04-03 10:21 | P.PN ---
Subjective Progress Note Date: 04/03/21 Principal diagnosis: hypoxia, generalized weakness, falls This is a 70-year-old male patient with a history of hypertension and alcohol abuse. He did have an ongoing weakness and falls at home. He had been drinking daily and not eating much. He presented to the emergency room yesterday with shortness of breath and feelings of dehydration. X-ray of the left hip revealed no fracture. X-ray of the pelvis reveals no fracture. X-ray of the abdomen revealed nonacute abdomen. No free air. Computed tomography scan of the brain revealed cerebral atrophy. No acute intracranial abnormalities. Chest x-ray revealed left greater than right bibasilar pleural parenchymal disease. He was admitted to the regular medical floor. Last evening approximately 5:30 the patient was found on the floor lethargic and minimally responsive. He was only arousing to loud questions. ABGs, chest x-ray and labs were drawn. He was given IV Lasix and transferred to the intensive care unit for concerns regarding possible seizure. He is seen today in consultation. He is currently resting in bed. He is barely arousable. He is mumbling. He is maintaining O2 saturations in the 90s on 4 L/m per nasal cannula. He does have 0.9 normal saline at 130 mL by mouth per hour. Suspect alcohol withdrawal syndrome. He is on the CIWA protocol. Abdomen is distended. He is currently on ceftriaxone and azithromycin. Lovenox for DVT prophylaxis. Haldol for agitation. Thiamine. ABGs revealed a pO2 of 78, pCO2 22, pH 7.46 on 32% FiO2. White count 8.1. Hemoglobin 9.9. MCV 108.9. Platelets 263. Sodium 136. Potassium 3.2. Creatinine 1.58. ProBNP 3300. Troponin negative. Serum alcohol level was less than 10. INR 2.5. On 04/03/2021 patient seen in follow-up in the intensive care unit. He is short of breath, and audibly wheezy during today's exam, he is on 10 L of oxygen this morning, with a pulse ox of 93-95%, he is currently on 0.9 normal saline at a rate of 1:30 ML per hour, he remains on CIWA protocol for acute alcohol withdrawal, he received a total of 6 mg of Ativan overnight in addition to haldol. he is confused, he is lethargic, he is not following commands. Lung sounds reveal equal air entry bilaterally, with diffuse wheezing throughout.remains on antibiotics in the combination of Zithromax and Rocephin, we added back pain treatments and IV steroids this morning. today's chest x-ray shows new extensive airspace disease in the right upper and mid lung zone, left basilar pleural parenchymal disease was again seen with possible deep sulcus and pneumothorax could not be definitely excluded. today's labs have been reviewed, and there has been an increase in patient's white blood cell count up to 16.9, hemoglobin is 11.3, sodium is 139, potassium is 4.5, chloride is 114, CO2 is 16, BUN of 27, creatinine is 1.41. IV fluids infusing at a rate of 1:30 ML per hour, patient has been nothing by mouth in view of his decreased level of consciousness, his had limited oral intake, his urine output has been in the order of 25-30 ML per hour. Objective - Vital Signs Vital signs: Vital Signs Temp 97 F L 04/03/21 04:00 Pulse 82 04/03/21 07:00 Resp 21 04/03/21 07:00 BP 120/98 04/03/21 07:00 Pulse Ox 95 04/03/21 07:30 Intake & Output 04/02/21 04/03/21 04/03/21 18:59 06:59 18:59 Intake Total 2060 1560 Output Total 380 405 25 Balance 1680 1155 -25 Weight 98.7 kg Intake: IV 1560 1560 Sodium Chloride 0.9% 1, 1560 1560 000 ml @ 130 mls/hr IV . Q7H42M [facility] Rx#:[id number] Intake, IV Titration 500 Amount Magnesium Sulfate-D5w Pmx 100 1 gm In Dextrose/Water 1 100ml.bag @ 100 mls/hr IVPB Q1H [facility] Rx#: [id number] Potassium Chloride 10 meq 400 In Water For Injection 1 100ml.bag @ 100 mls/hr IVPB Q1HR [facility] Rx#: [id number] Output: Urine 380 405 25 Other: Voiding Method Indwelling Catheter Indwelling Catheter - Exam GENERAL EXAM: lethargic, confused, poorly responsive, 70-year-old white male, on 10 L of oxygen a pulse ox of 95%, audibly wheezy, using accessory muscles of breathing, comfortable in no apparent distress. HEAD: Normocephalic/atraumatic. EYES: Normal reaction of pupils, equal size. Conjunctiva pink, sclera white. NOSE: Clear with pink turbinates. THROAT: No erythema or exudates. NECK: No masses, no JVD, no thyroid enlargement, no adenopathy. CHEST: No chest wall deformity. Symmetrical expansion. LUNGS: Equal air entry with diffuse wheezes CVS: Regular rate and rhythm, normal S1 and S2, no gallops, no murmurs, no rubs ABDOMEN: Soft, nontender. No hepatosplenomegaly, normal bowel sounds, no guarding or rigidity. EXTREMITIES: No clubbing, no edema, no cyanosis, 2+ pulses and upper and lower extremities. MUSCULOSKELETAL: Muscle strength and tone normal. SPINE: No scoliosis or deformity SKIN: No rashes CENTRAL NERVOUS SYSTEM: lethargic, confused. No focal deficits, tone is normal in all 4 extremities. - Labs CBC & Chem 7: 04/03/21 04:30 04/03/21 04:30 Labs: Abnormal Lab Results - Last 24 Hours (Table) 04/02/21 04/02/21 04/02/21 Range/Units 03:55 11:32 11:44 WBC (3.8-10.6) k/uL RBC (4.30-5.90) m/uL Hgb (13.0-17.5) gm/dL Hct (39.0-53.0) % MCV (80.0-100.0) fL MCHC (31.0-37.0) g/dL Macrocytosis Chloride (98-107) mmol/L Carbon Dioxide (22-30) mmol/L BUN (9-20) mg/dL Creatinine (0.66-1.25) mg/dL POC Glucose (mg/dL) 120 H (75-99) mg/dL Calcium (8.4-10.2) mg/dL Ionized Calcium Valerie 4.0 L (4.5-5.3) mg/dL Vitamin B12 1623.0 H (200.0-944.0) pg/mL Procalcitonin 0.31 H (0.02-0.09) ng/mL 04/02/21 04/03/21 04/03/21 Range/Units 17:06 04:30 04:30 WBC 16.9 H (3.8-10.6) k/uL RBC 3.38 L (4.30-5.90) m/uL Hgb 11.3 L (13.0-17.5) gm/dL Hct 37.0 L (39.0-53.0) % MCV 109.2 H (80.0-100.0) fL MCHC 30.4 L (31.0-37.0) g/dL Macrocytosis Marked A Chloride 114 H (98-107) mmol/L Carbon Dioxide 16 L (22-30) mmol/L BUN 27 H (9-20) mg/dL Creatinine 1.41 H (0.66-1.25) mg/dL POC Glucose (mg/dL) 111 H (75-99) mg/dL Calcium 6.9 L (8.4-10.2) mg/dL Ionized Calcium Valerie (4.5-5.3) mg/dL Vitamin B12 (200.0-944.0) pg/mL Procalcitonin (0.02-0.09) ng/mL Microbiology - Last 24 Hours (Table) 04/01/21 15:27 Blood Culture - Preliminary Blood No Growth after 24 hours 04/01/21 15:27 Blood Culture - Preliminary Blood No Growth after 24 hours Assessment and Plan Plan: Assessment: #1. Altered mental status, multifactorial, related to acute EtOH withdrawal, and bilateral pneumonia, possibly related to aspiration #2. daily alcohol use #3. Acute hypoxic respiratory failure secondary to possibility of aspiration related to pneumonia #4. Coagulopathy suspect secondary to liver disease #5. Acute kidney injury related to ATN #6. History of hypertension #7. Poor nutritional status related to chronic alcoholism #8. Ascites related to EtOH and chronic liver disease Plan: we'll switch antibiotic coverage to Zosyn, Discontinue azithromycin and Rocephin We will add IV steroids and breathing treatments today's chest x-ray has been reviewed showing new extensive airspace disease in the right upper and midlung zone Patient's prognosis condition has been discussed with his nephew who stated patient would not want to be on life support and continue with roland pportive treatment CODE STATUS is DO NOT RESUSCITATE per patient's wishes, stated by his nephew Overall prognosis is poor and guarded keep aspiration precautions, and CIWA protocol GI and DVT prophylaxis Continue to follow I performed a history & physical examination of the patient and discussed their management with my nurse practitioner, Kaitlin Deleon. I reviewed the nurse practitioner's note and agree with the documented findings and plan of care. Lung sounds are positive for diffuse wheezes. The findings and the impression was discussed with the patient. I attest to the documentation by the nurse practitioner. Time with Patient: Greater than 30
[2021-04-03] MEDS: ENOXAPARIN 40 MG/0.4 ML SYRINGE SQ SCH (10:22)
[2021-04-03] MEDS: IPRATROPIUM-ALBUTEROL 3 ML NEB INHALATION SCH ×3 (11:15→19:48)
[2021-04-03 11:44] LABS: Glucose,Whole Blood 83 mg/dL (75-99)
[2021-04-03] MEDS: PIPERACILLIN-TAZOBACTAM 3.375 GM in SODIUM CHLORIDE 0.9% 100 ML IVPB SCH ×2 (11:50→20:35)
--- NOTE | 2021-04-03 15:52 | P.PN ---
Subjective Progress Note Date: 04/03/21 Neri Kurtz is a 70 yo M with PMH of alcoholism, drinks a fifth of whiskey daily who presented to the ED with increasing weakness and falls at home. He states that he had not been feeling like himself, stumbling and after falling at home he decided to come to the ED. He denies nausea, vomiting or diarrhea. He does endorse cough. Pt denies sweats or tremors. On presentation pt hypertensive, labs with Hgb 12, Cr 1.8, lactic 4. AST elevated, trop 0.04, BNP 3300. CXR with L basilar infiltrate. 04/02/2021 yesterday afternoon discovered to be nearly obtunded,lethargic, minimally responsive, received IV push Lasix and transferred to ICU with suspicions of EtOH seizures. Maintained on seizure precautions with seizure pads. Neurology consult in place, recommendations pending. Continues on IV fluid resuscitation, Haldol and CIWA protocol,recent seawall score 17. Remains lethargic, minimally conversant. Yesterday reported he drinks a gallon of whiskey daily. Brain CT for cerebral atrophy with no acute intracranial abnormality, atrophy increased compared to prior exam. ABGs noted. Chest x-ray reporting increasing left lower lobe pneumonia. Maintaining O2 sats in the 90s on 4 L nasal cannula. Pro-calcitonin elevated, 0.31. Maintained on azithromycin, ceftriaxone. Afebrile, normal WBC. Abdominal x-ray reported limited exam, nonacute, no free air, multiple old left-sided rib fractures. Abdominal ultrasound reporting ascites. Troponin 0.039, 0.038, 0.031. Hemoglobin 9.9, platelets 263, INR 2.5. Potassium 3.2, magnesium 1.9, creatinine 1.5. Alk phos trending down. 04/03/2021 continues on CIWA protocol, lethargic, maintained on 10 L high flow nasal cannula maintaining O2 sats in the 90s, respiratory rate in the 20s. Afebrile, WBC increased ,16.9. Creatinine 1.41. Chest x-ray reporting new extensive airspace disease in the right upper and midlung zone, left basilar pl eural pressure multiple disease on with possible deep sulcus and pneumothorax. Maintained on Rocephin and Zithromax, nebulized bronchodilators, IV steroids. Objective - Vital Signs Vital signs: Vital Signs Temp 97.8 F 04/03/21 08:00 Pulse 79 04/03/21 15:12 Resp 25 H 04/03/21 10:00 BP 142/101 04/03/21 10:00 Pulse Ox 97 04/03/21 10:00 Intake & Output 04/02/21 04/03/21 04/03/21 18:59 06:59 18:59 Intake Total 2060 1560 390 Output Total 380 405 100 Balance 1680 1155 290 Weight 98.7 kg Intake: IV 1560 1560 390 Sodium Chloride 0.9% 1, 1560 1560 390 000 ml @ 130 mls/hr IV . Q7H42M [facility] Rx#:[id number] Intake, IV Titration 500 Amount Magnesium Sulfate-D5w Pmx 100 1 gm In Dextrose/Water 1 100ml.bag @ 100 mls/hr IVPB Q1H [facility] Rx#: [id number] Potassium Chloride 10 meq 400 In Water For Injection 1 100ml.bag @ 100 mls/hr IVPB Q1HR [facility] Rx#: [id number] Output: Urine 380 405 100 Other: Voiding Method Indwelling Catheter Indwelling Catheter Indwelling Catheter - Exam General: Lethargic, confused, mumbling NAD,Vitals reviewed Eyes: PERRL, EOMI, conjunctiva normal HENT: normocephalic, mucus membranes dry Neck: supple, no JVD Lungs: Increased respiratory effort, Lungs diminished with scattered rhonchi. Expiratory wheezing. CV: tachycardic and rhythm, no murmur. Peripheral pulses 2+ Abdomen: soft,distended, no organomegaly, positive bowel sounds Skin: warm and dry. Neuro: Limited exam, unable to assess at this time. - Labs CBC & Chem 7: 04/03/21 04:30 04/03/21 04:30 Labs: Abnormal Lab Results - Last 24 Hours (Table) 04/02/21 04/02/21 04/02/21 Range/Units 03:49 03:55 11:32 WBC (3.8-10.6) k/uL RBC (4.30-5.90) m/uL Hgb (13.0-17.5) gm/dL Hct (39.0-53.0) % MCV (80.0-100.0) fL MCHC (31.0-37.0) g/dL Macrocytosis Chloride (98-107) mmol/L Carbon Dioxide (22-30) mmol/L BUN (9-20) mg/dL Creatinine (0.66-1.25) mg/dL POC Glucose (mg/dL) (75-99) mg/dL Calcium (8.4-10.2) mg/dL Vitamin B12 1623.0 H (200.0-944.0) pg/mL RBC Folate 1,592 H (280 - 791) ng/mL Procalcitonin 0.31 H (0.02-0.09) ng/mL 04/02/21 04/03/21 04/03/21 Range/Units 17:06 04:30 04:30 WBC 16.9 H (3.8-10.6) k/uL RBC 3.38 L (4.30-5.90) m/uL Hgb 11.3 L (13.0-17.5) gm/dL Hct 37.0 L (39.0-53.0) % MCV 109.2 H (80.0-100.0) fL MCHC 30.4 L (31.0-37.0) g/dL Macrocytosis Marked A Chloride 114 H (98-107) mmol/L Carbon Dioxide 16 L (22-30) mmol/L BUN 27 H (9-20) mg/dL Creatinine 1.41 H (0.66-1.25) mg/dL POC Glucose (mg/dL) 111 H (75-99) mg/dL Calcium 6.9 L (8.4-10.2) mg/dL Vitamin B12 (200.0-944.0) pg/mL RBC Folate (280 - 791) ng/mL Procalcitonin (0.02-0.09) ng/mL Microbiology - Last 24 Hours (Table) 04/01/21 15:27 Blood Culture - Preliminary Blood No Growth after 24 hours 04/01/21 15:27 Blood Culture - Preliminary Blood No Growth after 24 hours Assessment and Plan Assessment: 1. Alcohol withdrawal with seizure in a patient with alcohol dependence. 2. Acute kidney injury, secondary to alcohol abuse, ATN. 3. Bilateral pneumonia possibly community-acquired, possibly aspiration 4. Acute hypoxic respiratory failure secondary to the above 5. Acute metabolic and toxic encephalopathy multifactorial, secondary to the above 6. Elevated AST 7. Elevated lactic 8. Ascites secondary to EtOH, Chronic liver disease. 9. No code, no CPR, no intubation Plan: Continue on current medication regime ,monitoring and symptomatic treatment. Maintain IV ANTIBIOTICS, NEBULIZED BRONCHODILATORS, STEROIDS, CIWA protocol. Seizure and aspiration precautions. Neurology consult in place, recommendations pending. Avoid nephrotoxins. CODE STATUS changed to no code, no CPR, no intubation as per family. Prognosis guarded given multiple complex medical issues. The impression and plan of care has been dictated as directed. : I performed a history and examination of this patient, discussed the same with the dictator. I agree with the dictator's note ,documented as a scribe. Any additional findings or plans will be noted.
--- NOTE | 2021-04-03 17:36 | P.PN ---
Subjective Progress Note Date: 04/03/21 The patient seen at bedside and per his nurse he is about the same today compared to yesterday. He is restless going thru withdrawls. He is restless. Objective - Vital Signs Vital signs: Vital Signs Temp 97.8 F 04/03/21 08:00 Pulse 79 04/03/21 15:12 Resp 25 H 04/03/21 10:00 BP 142/101 04/03/21 10:00 Pulse Ox 97 04/03/21 10:00 Intake & Output 04/02/21 04/03/21 04/03/21 18:59 06:59 18:59 Intake Total 2060 1560 390 Output Total 380 405 100 Balance 1680 1155 290 Weight 98.7 kg Intake: IV 1560 1560 390 Sodium Chloride 0.9% 1, 1560 1560 390 000 ml @ 130 mls/hr IV . Q7H42M [facility] Rx#:[id number] Intake, IV Titration 500 Amount Magnesium Sulfate-D5w Pmx 100 1 gm In Dextrose/Water 1 100ml.bag @ 100 mls/hr IVPB Q1H [facility] Rx#: [id number] Potassium Chloride 10 meq 400 In Water For Injection 1 100ml.bag @ 100 mls/hr IVPB Q1HR [facility] Rx#: [id number] Output: Urine 380 405 100 Other: Voiding Method Indwelling Catheter Indwelling Catheter Indwelling Catheter - Exam GENERAL: The patient is lying in bed and is moderate to severe respiratory distress. LUNG: Clear to auscultation bilaterally. Is tachypneic and seems very short of breath. NEUROLOGICAL: Limited because of patient condition. Higher mental function: The patient is significantly drowsy, not following commands or verbalizing. I could not make sense of his speech. Cranial nerves: Opens his eyes and are midline. Pupils are pupils are round, equal and reactive to light . Could not assess visual burks. Could not assess extraocular movement but is tracking. No facial weakness. Could not assess the rest of cranial nerves because of his condition. Motor: The strength is limited but when he got agitated he attempted to sit up and moved bilateral upper extremities above gravity. He grimaces to painful stimuli of both lower extremities. Normal tone and bulk. Cerebellum: Could not assess. Sensation: He frowns to painful stimuli in lowers. Reflexes (right/left):2+ throughout. Plantars are mute bilaterally. WORK-UP: Routine EEG on 04/02/2021 is an abnormal. The background slowing is suggestive of severe encephalopathy likely due to toxic metabolic encephalopathy. There are no focal slowing, epileptiform discharges or seizure on EEG. Clinical correlation is recommended. Vitamin B12 is 1223 which is unremarkable Red blood cell folate is 1592 which is also unremarkable. TSH is 0.786 which is considered within normal limits. Ionized calcium is 4.0 which is low - Labs CBC & Chem 7: 04/03/21 04:30 04/03/21 04:30 Labs: Abnormal Lab Results - Last 24 Hours (Table) 04/02/21 04/02/21 04/02/21 Range/Units 03:49 11:32 17:06 WBC (3.8-10.6) k/uL RBC (4.30-5.90) m/uL Hgb (13.0-17.5) gm/dL Hct (39.0-53.0) % MCV (80.0-100.0) fL MCHC (31.0-37.0) g/dL Macrocytosis Chloride (98-107) mmol/L Carbon Dioxide (22-30) mmol/L BUN (9-20) mg/dL Creatinine (0.66-1.25) mg/dL POC Glucose (mg/dL) 111 H (75-99) mg/dL Calcium (8.4-10.2) mg/dL Vitamin B12 1623.0 H (200.0-944.0) pg/mL RBC Folate 1,592 H (280 - 791) ng/mL 04/03/21 04/03/21 Range/Units 04:30 04:30 WBC 16.9 H (3.8-10.6) k/uL RBC 3.38 L (4.30-5.90) m/uL Hgb 11.3 L (13.0-17.5) gm/dL Hct 37.0 L (39.0-53.0) % MCV 109.2 H (80.0-100.0) fL MCHC 30.4 L (31.0-37.0) g/dL Macrocytosis Marked A Chloride 114 H (98-107) mmol/L Carbon Dioxide 16 L (22-30) mmol/L BUN 27 H (9-20) mg/dL Creatinine 1.41 H (0.66-1.25) mg/dL POC Glucose (mg/dL) (75-99) mg/dL Calcium 6.9 L (8.4-10.2) mg/dL Vitamin B12 (200.0-944.0) pg/mL RBC Folate (280 - 791) ng/mL Microbiology - Last 24 Hours (Table) 04/01/21 15:27 Blood Culture - Preliminary Blood No Growth after 24 hours 04/01/21 15:27 Blood Culture - Preliminary Blood No Growth after 24 hours Assessment and Plan Assessment: * Altered mental status likely due alcohol withdrawl. Has toxic-metabolic encephalopathy with electrolyte imbalance (low ca serum and ionized). Also altered mental status due to suspected pneumonia. * Significant alcohol use with alcohol level less than 10 * Macrocytic anemia possibly due to significant alcohol use * Acute kidney insufficiency * Acute hypoxemic respiratory failure due to CAP vs aspiration pneumonia * History of multiple falls. * History of hypertension Plan: Will defer electrolyte imbalance correction to the primary/IC team. Patient is on thiamine 100 mg 1 tablet twice a day. On CIWA protocol and will defer management to the primary team and ICU team. We'll defer the rest of the medical measure the primary/ICU team. The plan is discussed with the patient's nurse. Neurology will sign off. Please reconsult neurology if needed. Celso Presley MD Neuro-hospitalist. Time with Patient: Less than 30
[2021-04-03 18:17] LABS: Glucose,Whole Blood 90 mg/dL (75-99)
[2021-04-03] MEDS: BUDESONIDE 1 MG/2 ML NEBU INHALATION SCH (19:48)
[2021-04-03] MEDS: FORMOTEROL FUMARATE 20 MCG/2 ML NEBU INHALATION SCH (19:48)
[2021-04-04 00:02] LABS: Glucose,Whole Blood 92 mg/dL (75-99)
[2021-04-04] MEDS: LORazepam 2 MG/ML INJ IV PRN ×7 (00:25→20:35)
[2021-04-04] MEDS: INSULIN ASPART (NovoLOG) 100 UNIT/ML VIAL SQ SCH ×4 (00:54→18:05)
[2021-04-04] MEDS: methylPREDNISolone SOD SUCCI 125 MG/2 ML VIAL IV SCH ×4 (01:14→18:09)
[2021-04-04] MEDS: SODIUM CHLORIDE 0.9% 1,000 ML IV SCH ×4 (01:17→18:09)
[2021-04-04] MEDS: PIPERACILLIN-TAZOBACTAM 3.375 GM in SODIUM CHLORIDE 0.9% 100 ML IVPB SCH ×3 (02:41→18:08)
[2021-04-04] MEDS: IPRATROPIUM-ALBUTEROL 3 ML NEB INHALATION PRN (03:26)
[2021-04-04 04:54] LABS: HCT 36.8 % (39.0-53.0); HGB 11.6 gm/dL (13.0-17.5); Hypochromasia Moderate; MCH 34.3 pg (25.0-35.0); MCHC 31.4 g/dL (31.0-37.0); MCV 109.1 fL (80.0-100.0); Macrocytosis Marked; Mean Platelet Volume 8.2; Platelet Count 302 k/uL (150-450); RBC 3.37 m/uL (4.30-5.90); RDW 14.1 % (11.5-15.5); WBC 12.5 k/uL (3.8-10.6)
[2021-04-04 05:08] LABS: Potassium 3.9 mmol/L (3.5-5.1)
[2021-04-04] MEDS: FORMOTEROL FUMARATE 20 MCG/2 ML NEBU INHALATION SCH ×2 (08:57→19:25)
[2021-04-04] MEDS: BUDESONIDE 1 MG/2 ML NEBU INHALATION SCH ×2 (08:57→19:13)
[2021-04-04] MEDS: IPRATROPIUM-ALBUTEROL 3 ML NEB INHALATION SCH ×4 (08:58→19:13)
[2021-04-04] MEDS: PANTOPRAZOLE 40 MG/10 ML VIAL IV SCH (09:18)
[2021-04-04] MEDS: THIAMINE 100 MG/ML 2 ML VIAL IVP SCH (09:18)
[2021-04-04] MEDS: ENOXAPARIN 40 MG/0.4 ML SYRINGE SQ SCH (09:18)
[2021-04-04] MEDS ORDERED: LORazepam 2 MG/ML INJ IV PRN (09:29)
--- NOTE | 2021-04-04 09:34 | P.PN ---
Subjective Progress Note Date: 04/04/21 Principal diagnosis: hypoxia, generalized weakness, falls This is a 70-year-old male patient with a history of hypertension and alcohol abuse. He did have an ongoing weakness and falls at home. He had been drinking daily and not eating much. He presented to the emergency room yesterday with shortness of breath and feelings of dehydration. X-ray of the left hip revealed no fracture. X-ray of the pelvis reveals no fracture. X-ray of the abdomen revealed nonacute abdomen. No free air. Computed tomography scan of the brain revealed cerebral atrophy. No acute intracranial abnormalities. Chest x-ray revealed left greater than right bibasilar pleural parenchymal disease. He was admitted to the regular medical floor. Last evening approximately 5:30 the patient was found on the floor lethargic and minimally responsive. He was only arousing to loud questions. ABGs, chest x-ray and labs were drawn. He was given IV Lasix and transferred to the intensive care unit for concerns regarding possible seizure. He is seen today in consultation. He is currently resting in bed. He is barely arousable. He is mumbling. He is maintaining O2 saturations in the 90s on 4 L/m per nasal cannula. He does have 0.9 normal saline at 130 mL by mouth per hour. Suspect alcohol withdrawal syndrome. He is on the CIWA protocol. Abdomen is distended. He is currently on ceftriaxone and azithromycin. Lovenox for DVT prophylaxis. Haldol for agitation. Thiamine. ABGs revealed a pO2 of 78, pCO2 22, pH 7.46 on 32% FiO2. White count 8.1. Hemoglobin 9.9. MCV 108.9. Platelets 263. Sodium 136. Potassium 3.2. Creatinine 1.58. ProBNP 3300. Troponin negative. Serum alcohol level was less than 10. INR 2.5. On 04/03/2021 patient seen in follow-up in the intensive care unit. He is short of breath, and audibly wheezy during today's exam, he is on 10 L of oxygen this morning, with a pulse ox of 93-95%, he is currently on 0.9 normal saline at a rate of 1:30 ML per hour, he remains on CIWA protocol for acute alcohol withdrawal, he received a total of 6 mg of Ativan overnight in addition to haldol. he is confused, he is lethargic, he is not following commands. Lung sounds reveal equal air entry bilaterally, with diffuse wheezing throughout.remains on antibiotics in the combination of Zithromax and Rocephin, we added back pain treatments and IV steroids this morning. today's chest x-ray shows new extensive airspace disease in the right upper and mid lung zone, left basilar pleural parenchymal disease was again seen with possible deep sulcus and pneumothorax could not be definitely excluded. today's labs have been reviewed, and there has been an increase in patient's white blood cell count up to 16.9, hemoglobin is 11.3, sodium is 139, potassium is 4.5, chloride is 114, CO2 is 16, BUN of 27, creatinine is 1.41. IV fluids infusing at a rate of 1:30 ML per hour, patient has been nothing by mouth in view of his decreased level of consciousness, his had limited oral intake, his urine output has been in the order of 25-30 ML per hour. On 04/04/2021 patient seen in follow-up in the intensive care unit, he remains poorly responsive, breathing spontaneously, he is currently on 11 L per high flow nasal cannula, his pulse ox is 91-97%, he sounds less bronchospastic on today's exam, lung sounds reveal diffuse rhonchi, and some scattered wheezes. Febrile overnight, hemodynamically has been stable, he remains on 0.9 normal saline at a rate of 1:30 ML per hour, his been kept nothing by mouth in view of his decreased level of consciousness. His CODE STATUS is DO NOT RESUSCITATE, no new chest x-ray today, yesterday's chest x-ray showed new extensive airspace disease in the right upper and right midlung zone and left basilar pleural parenchymal disease. Possibility of aspiration pneumonia is suspected, his antibiotic was switched to Zosyn. His white blood cell count is improving on today's labs. He is not able to produce a sputum specimen for culture, his blood cultures have been negative thus far. He is less tachycardic, he is in sinus mechanism with a controlled rate, he was started on steroids and breathing treatments, DVT and GI prophylaxis. Remains on CIWA protocol, received 2 mg of Ativan this morning. Remains calm, not opening eyes to verbal or tactile stimulation. Objective - Vital Signs Vital signs: Vital Signs Temp 98.2 F 04/04/21 08:00 Pulse 92 07/24/21 09:15 Resp 19 04/04/21 08:00 BP 139/97 04/04/21 08:00 Pulse Ox 97 04/04/21 08:00 Intake & Output 04/03/21 04/04/21 04/04/21 18:59 06:59 18:59 Intake Total 1530 720 130 Output Total 300 400 40 Balance 1230 320 90 Weight 95.2 kg Intake: IV 1430 720 130 Piperacillin-Tazobactam 3 330 130 .375 gm In Sodium Chloride 0.9% 100 ml @ 25 mls/hr IVPB Q8H [facility] Rx#: [id number] Sodium Chloride 0.9% 1, 1430 390 000 ml @ 130 mls/hr IV . Q7H42M [facility] Rx#:[id number] Intake, IV Titration 100 Amount Piperacillin-Tazobactam 3 100 .375 gm In Sodium Chloride 0.9% 100 ml @ 25 mls/hr IVPB Q8H [facility] Rx#: [id number] Output: Urine 300 400 40 Other: Voiding Method Indwelling Catheter Indwelling Catheter Indwelling Catheter - Exam GENERAL EXAM: poorly responsive, 70-year-old white male, 11 L of oxygen pulse ox of 97%, comfortable in no apparent distress. HEAD: Normocephalic/atraumatic. EYES: Normal reaction of pupils, equal size. Conjunctiva pink, sclera white. NOSE: Clear with pink turbinates. THROAT: No erythema or exudates. NECK: No masses, no JVD, no thyroid enlargement, no adenopathy. CHEST: No chest wall deformity. Symmetrical expansion. LUNGS: Equal air entry with diffuse rhonchi, minimal wheezes CVS: Regular rate and rhythm, normal S1 and S2, no gallops, no murmurs, no rubs ABDOMEN: Soft, nontender. No hepatosplenomegaly, normal bowel sounds, no guarding or rigidity. EXTREMITIES: No clubbing, no edema, no cyanosis, 2+ pulses and upper and lower extremities. MUSCULOSKELETAL: Muscle strength and tone normal. SPINE: No scoliosis or deformity SKIN: No rashes CENTRAL NERVOUS SYSTEM: Unresponsive to verbal stimulation, unresponsive to tactile stimulation, withdraws from painful stimuli with deep pain stimuli. No focal deficits, tone is normal in all 4 extremities. - Labs CBC & Chem 7: 04/04/21 04:19 04/04/21 04:19 Labs: Abnormal Lab Results - Last 24 Hours (Table) 04/02/21 04/04/21 04/04/21 Range/Units 03:49 04:19 04:19 WBC 12.5 H (3.8-10.6) k/uL RBC 3.37 L (4.30-5.90) m/uL Hgb 11.6 L (13.0-17.5) gm/dL Hct 36.8 L (39.0-53.0) % MCV 109.1 H (80.0-100.0) fL Macrocytosis Marked A Chloride 114 H (98-107) mmol/L Carbon Dioxide 17 L (22-30) mmol/L BUN 28 H (9-20) mg/dL Creatinine 1.39 H (0.66-1.25) mg/dL Calcium 7.0 L (8.4-10.2) mg/dL RBC Folate 1,592 H (280 - 791) ng/mL Microbiology - Last 24 Hours (Table) 04/01/21 15:27 Blood Culture - Preliminary Blood No Growth after 48 hours 04/01/21 15:27 Blood Culture - Preliminary Blood No Growth after 48 hours Assessment and Plan Plan: Assessment: #1. Altered mental status, multifactorial, related to acute EtOH withdrawal, and bilateral pneumonia, possibly related to aspiration #2. Daily alcohol use #3. Acute hypoxic respiratory failure secondary to possibility of aspiration related to pneumonia #4. Coagulopathy suspect secondary to liver disease #5. Acute kidney injury related to ATN, on IV fluids, renal status slightly improved on today's labs #6. History of hypertension #7. Poor nutritional status related to chronic alcoholism #8. Ascites related to EtOH and chronic liver disease Plan: Continue Zosyn Continue breathing treatments, steroids Weaning FiO2 to keep O2 sat at or above 92-94% Maintain aspiration precautions We'll cut back to Ativan to every 4 hours per CIWA protocol We will attempt to let the patient awaken a little bit more Overall prognosis is poor and guarded Follow-up chest x-ray tomorrow Overall prognosis is poor and guarded Palliative care/hospice will be discussed with the patient's nephew Continue supportive treatment GI and DVT prophylaxis Continue to follow I performed a history & physical examination of the patient and discussed their management with my nurse practitioner, Kaitlin Deleon. I reviewed the nurse practitioner's note and agree with the documented findings and plan of care. Lung sounds are positive for diffuse wheezes. The findings and the impression was discussed with the patient. I attest to the documentation by the nurse practitioner. Time with Patient: Greater than 30
[2021-04-04 11:47] LABS: Glucose,Whole Blood 103 mg/dL (75-99)
--- NOTE | 2021-04-04 12:34 | P.PN ---
Subjective This is a pleasant 70 years old male with past medical history of hypertension. He is a patient of Dr. Pro He was admitted on 04/01 secondary to fall after he tripped over a plastic back. Also reports multiple falls recently. Alcohol withdrawal seizure is suspected by PCP associated with left lower lobe infiltrate, although reports of occas ional drinking. He is been followed by neurology service for toxic metabolic encephalopathy with electrolyte imbalance. He was placed on CIWA protocol. Patient was transferred to the ICU for possible seizure.. Patient also was hypoxic he didn't tolerate her off oxygen and wheezing. He is currently kept in the ICU on BiPAP machine with a setting of 12/5 and FiO2 of 100% and he is tachypneic. With a breathing rate around 38 breath per minute He could not provide information because he is on BiPAP. He is afebrile, and blood pressure is stable. He has mild leukocytosis of 12.5 but he is on steroids as well.creatinine has been trending from 1.8 down to 1.39 today. Liver enzymes not elevated. Bilirubin is normal Glucose controlled. Blood culture negative. Chest x-ray from yesterday showing Extensive airspace disease in the right upper and mid lung zone. Left basilar pleural parenchymal disease is again seen with possible deep sulcus and pneumothorax cannot be definitely excluded proCalcitonin is slightly elevated 0.31 Ultrasound of the abdomen showing ascites CT of the brain showing no acute process but cerebral atrophy. Patient currently kept also Medrol 60 mg, CIWA protocol, Zosynand a mean Review of systems: N/a, and is currently on BiPAP and could not provide informat ion Active Medications Generic Name Dose Route Start Last Admin Trade Name Freq PRN Reason Stop Dose Admin Albuterol/Ipratropium 3 ml 04/03/21 12:00 04/04/21 12:22 Ipratropium-Albuterol 3 Ml Neb INHALATION 3 ml RT-QID [facility] Administration Albuterol/Ipratropium 3 ml 04/03/21 08:19 04/04/21 03:26 Ipratropium-Albuterol 3 Ml Neb INHALATION 3 ml RT-Q2H PRN Administration Shortness Of Breath Or Wheezing Budesonide 1 mg 04/03/21 20:00 04/04/21 08:57 Budesonide 1 Mg/2 Ml Nebu INHALATION 1 mg RT-BID [facility] Administration Enoxaparin Sodium 40 mg 04/01/21 09:00 04/04/21 09:18 Enoxaparin 40 Mg/0.4 Ml Syringe SQ 40 mg DAILY [facility] Administration Formoterol Fumarate 20 mcg 04/03/21 20:00 04/04/21 08:57 Formoterol Fumarate 20 Mcg/2 Ml Nebu INHALATION 20 mcg RT-BID [facility] Administration Haloperidol Lactate 5 mg 04/01/21 16:51 04/03/21 23:22 Haloperidol Lactate 5 Mg/Ml 1 Ml Vial IVP 5 mg Q6H PRN Administration Agitation or Acute Psychosis Sodium Chloride 1,000 mls @ 130 mls/hr 04/01/21 06:45 04/04/21 09:24 Saline 0.9% IV 130 mls/hr .Q7H42M [facility] Administration Piperacillin Sod/Tazobactam 100 mls @ 25 mls/hr 04/03/21 11:00 04/04/21 10:17 Sod 3.375 gm/ Sodium Chloride IVPB 25 mls/hr Q8H [facility] Administration Insulin Aspart 0 unit 04/02/21 00:00 04/04/21 05:12 Insulin Aspart (Novolog) 100 Unit/Ml Vial SQ Not Given Q6H [facility] Protocol Lorazepam 1 mg 04/04/21 09:28 Lorazepam 2 Mg/Ml Inj IV Q4HR PRN CIWA 8 or 9 Lorazepam 1 mg 04/04/21 09:29 Lorazepam 2 Mg/Ml Inj IV Q4HR PRN CIWA 10 to 15 Methylprednisolone Sodium Succinate 60 mg 04/03/21 08:30 04/04/21 05:28 Methylprednisolone Sod Succi 125 Mg/2 Ml Vial IV 60 mg Q6HR [facility] Administration Miscellaneous Information 1 each 04/01/21 19:10 Potassium Replacement Protocol 1 [place] [facility] [place] PRN Per Protocol Protocol Miscellaneous Information 1 each 04/02/21 06:13 Potassium Replacement Protocol 1 Each Mis MISCELLANE DAILY PRN Per Protocol Protocol Naloxone HCl 0.2 mg 04/01/21 06:31 Naloxone 0.4 Mg/Ml 1 Ml Vial IV Q2M PRN Opioid Reversal Naloxone HCl 0.2 mg 04/01/21 06:38 Naloxone 0.4 Mg/Ml 1 Ml Vial IV Q2M PRN Opioid Reversal Ondansetron HCl 4 mg 04/01/21 06:38 Ondansetron 4 Mg/2 Ml Vial IVP Q8HR PRN Nausea And Vomiting Pantoprazole Sodium 40 mg 04/01/21 09:00 04/04/21 09:18 Pantoprazole 40 Mg/10 Ml Vial IV 40 mg DAILY [facility] Administration Thiamine HCl 100 mg 04/04/21 09:00 04/04/21 09:18 Thiamine 100 Mg/Ml 2 Ml Vial IVP 100 mg DAILY [facility] Administration Objective - Vital Signs Vital signs: Vital Signs Temp 98.2 F 04/04/21 08:00 Pulse 93 04/04/21 10:00 Resp 22 04/04/21 10:00 BP 137/90 04/04/21 10:00 Pulse Ox 93 L 04/04/21 10:00 Intake & Output 04/03/21 04/04/21 04/04/21 18:59 06:59 18:59 Intake Total 1530 720 490 Output Total 300 400 135 Balance 1230 320 355 Weight 95.2 kg Intake: IV 1430 720 390 Piperacillin-Tazobactam 3 330 390 .375 gm In Sodium Chloride 0.9% 100 ml @ 25 mls/hr IVPB Q8H [facility] Rx#: [id number] Sodium Chloride 0.9% 1, 1430 390 000 ml @ 130 mls/hr IV . Q7H42M [facility] Rx#:[id number] Intake, IV Titration 100 100 Amount Piperacillin-Tazobactam 3 100 100 .375 gm In Sodium Chloride 0.9% 100 ml @ 25 mls/hr IVPB Q8H [facility] Rx#: [id number] Output: Urine 300 400 135 Other: Voiding Method Indwelling Catheter Indwelling Catheter Indwelling Catheter - Exam -GENERAL: The patient is confused, not in any acute distress. Well developed, well nourished. HEENT: Pupils are round and equally reacting to light. EOMI. No scleral icterus. No conjunctival pallor. Normocephalic, atraumatic. No pharyngeal erythema. No thyromegaly. CARDIOVASCULAR: S1 and S2 present. No murmurs, rubs, or gallops. -PULMONARY: Chest is clear to auscultation, no crackles. Bilateral scattered wheezing. Patient is on BiPAP ABDOMEN: Soft, nontender, nondistended, normoactive bowel sounds. No palpable organomegaly. MUSCULOSKELETAL: No joint swelling or deformity. EXTREMITIES: No cyanosis, clubbing, or pedal edema. NEUROLOGICAL: Gross neurological examination did not reveal any focal deficits. SKIN: No rashes. no petechiae. - Labs CBC & Chem 7: 04/04/21 04:19 04/04/21 04:19 Labs: Abnormal Lab Results - Last 24 Hours (Table) 04/02/21 04/04/21 04/04/21 Range/Units 03:49 04:19 04:19 WBC 12.5 H (3.8-10.6) k/uL RBC 3.37 L (4.30-5.90) m/uL Hgb 11.6 L (13.0-17.5) gm/dL Hct 36.8 L (39.0-53.0) % MCV 109.1 H (80.0-100.0) fL Macrocytosis Marked A Chloride 114 H (98-107) mmol/L Carbon Dioxide 17 L (22-30) mmol/L BUN 28 H (9-20) mg/dL Creatinine 1.39 H (0.66-1.25) mg/dL POC Glucose (mg/dL) (75-99) mg/dL Calcium 7.0 L (8.4-10.2) mg/dL RBC Folate 1,592 H (280 - 791) ng/mL 04/04/21 Range/Units 11:45 WBC (3.8-10.6) k/uL RBC (4.30-5.90) m/uL Hgb (13.0-17.5) gm/dL Hct (39.0-53.0) % MCV (80.0-100.0) fL Macrocytosis Chloride (98-107) mmol/L Carbon Dioxide (22-30) mmol/L BUN (9-20) mg/dL Creatinine (0.66-1.25) mg/dL POC Glucose (mg/dL) 103 H (75-99) mg/dL Calcium (8.4-10.2) mg/dL RBC Folate (280 - 791) ng/mL Microbiology - Last 24 Hours (Table) 04/01/21 15:27 Blood Culture - Preliminary Blood No Growth after 48 hours 04/01/21 15:27 Blood Culture - Preliminary Blood No Growth after 48 hours Assessment and Plan Assessment: Aspiration pneumonia Suspected alcohol withdrawal Toxic/metabolic encephalopathy with altered mental status Hypertension Recurrent falls on admission Acute hypoxic respiratory failure secondary to above Possible alcoholic liver disease with ascites Plan: This is a pleasant 70 years old male who presents with aspiration pneumonia, alcoholic liver disease and possible withdrawal seizure Continue with her vitamins and CIWA protocols. No need for seizure medication. Neurology on the case Continue with Zosyn and monitor breathing patient kept in the ICU, with pulmonary/critical care team on the case. Labs and medication were reviewed.. Continue same treatment. Continue with symptomatic treatment. Resume home medication. Monitor lytes and vitals. DVT and GI prophylaxis. Further recommendationsas per clinical course of the patient DVT prophylaxis: SubcutaneousLovenox GI Prophylaxis: Ppi PT/OT: Pending Prognosis is guarded
[2021-04-04 17:58] LABS: Glucose,Whole Blood 78 mg/dL (75-99)
[2021-04-05] MEDS: INSULIN ASPART (NovoLOG) 100 UNIT/ML VIAL SQ SCH ×5 (00:14→23:43)
[2021-04-05 00:16] LABS: Glucose,Whole Blood 86 mg/dL (75-99)
[2021-04-05] MEDS: LORazepam 2 MG/ML INJ IV PRN ×2 (00:23→03:57)
[2021-04-05] MEDS: methylPREDNISolone SOD SUCCI 125 MG/2 ML VIAL IV SCH ×5 (00:24→23:46)
[2021-04-05] MEDS: SODIUM CHLORIDE 0.9% 1,000 ML IV SCH (02:46)
[2021-04-05] MEDS: PIPERACILLIN-TAZOBACTAM 3.375 GM in SODIUM CHLORIDE 0.9% 100 ML IVPB SCH ×3 (02:47→18:20)
[2021-04-05 04:00] LABS: Calcium 7.1 mg/dL (8.4-10.2); Potassium 4.7 mmol/L (3.5-5.1)
[2021-04-05 04:10] LABS: Basophils % (A) 0 %; Eosinophils # (A) 0.1 k/uL (0-0.7); Eosinophils % (A) 0 %; HCT 37.7 % (39.0-53.0); HGB 11.9 gm/dL (13.0-17.5); Hypochromasia Slight; Lymphocytes # (A) 0.5 k/uL (1.0-4.8); Lymphocytes % (A) 3 %; MCH 33.9 pg (25.0-35.0); MCHC 31.6 g/dL (31.0-37.0); MCV 107.3 fL (80.0-100.0); Macrocytosis Moderate; Mean Platelet Volume 8.5; Monocytes # (A) 0.5 k/uL (0-1.0); Monocytes % (A) 3 %; Neutrophils # (A) 14.9 k/uL (1.3-7.7); Neutrophils % (A) 93 %; Platelet Count 274 k/uL (150-450); RBC 3.52 m/uL (4.30-5.90); RDW 14.6 % (11.5-15.5)
[2021-04-05 05:15] LABS: Glucose,Whole Blood 89 mg/dL (75-99)
--- NOTE | 2021-04-05 07:21 | XR ---
EXAMINATION TYPE: XR chest 1V portable DATE OF EXAM: 04/05/2021 COMPARISON: 04/03/2021 HISTORY: 70 years Male. STUDY INDICATION GIVEN: Congestion TECHNIQUE: AP portable chest radiograph FINDINGS AND IMPRESSION: Diffuse bilateral opacities with relative sparing of the right lower lobe again seen with interval wo rsening. Left lower lobe collapse again seen. Small left pleural effusion, increased in size compared to prior. Cardiomediastinal silhouette within normal. No pneumothorax. No acute osseous abnormality.
[2021-04-05] MEDS: BUDESONIDE 1 MG/2 ML NEBU INHALATION SCH ×2 (07:56→19:45)
[2021-04-05] MEDS: IPRATROPIUM-ALBUTEROL 3 ML NEB INHALATION SCH ×4 (07:56→19:45)
[2021-04-05] MEDS: FORMOTEROL FUMARATE 20 MCG/2 ML NEBU INHALATION SCH ×2 (07:56→19:45)
[2021-04-05] MEDS ORDERED: FUROSEMIDE 10 MG/ML 4 ML VIAL IV STA (08:11)
[2021-04-05] MEDS: ENOXAPARIN 40 MG/0.4 ML SYRINGE SQ SCH (08:46)
[2021-04-05] MEDS: PANTOPRAZOLE 40 MG/10 ML VIAL IV SCH (08:46)
[2021-04-05] MEDS: LABETALOL 5 MG/ML VIAL MDV IVP SCH ×4 (08:47→23:39)
[2021-04-05] MEDS: THIAMINE 100 MG/ML 2 ML VIAL IVP SCH (08:47)
[2021-04-05] MEDS ORDERED: FUROSEMIDE 10 MG/ML 4 ML VIAL ONE (08:51)
--- NOTE | 2021-04-05 10:08 | P.PN ---
Subjective This is a pleasant 70 years old male with past medical history of hypertension. He is a patient of Dr. Pro He was admitted on 04/01 secondary to fall after he tripped over a plastic back. Also reports multiple falls recently. Alcohol withdrawal seizure is suspected by PCP associated with left lower lobe infiltrate, although reports of occas ional drinking. He is been followed by neurology service for toxic metabolic encephalopathy with electrolyte imbalance. He was placed on CIWA protocol. Patient was transferred to the ICU for possible seizure.. Patient also was hypoxic he didn't tolerate her off oxygen and wheezing. He is currently kept in the ICU on BiPAP machine with a setting of 12/5 and FiO2 of 100% and he is tachypneic. With a breathing rate around 38 breath per minute He could not provide information because he is on BiPAP. He is afebrile, and blood pressure is stable. He has mild leukocytosis of 12.5 but he is on steroids as well.creatinine has been trending from 1.8 down to 1.39 today. Liver enzymes not elevated. Bilirubin is normal Glucose controlled. Blood culture negative. Chest x-ray from yesterday showing Extensive airspace disease in the right upper and mid lung zone. Left basilar pleural parenchymal disease is again seen with possible deep sulcus and pneumothorax cannot be definitely excluded proCalcitonin is slightly elevated 0.31 Ultrasound of the abdomen showing ascites CT of the brain showing no acute process but cerebral atrophy. Patient currently kept also Medrol 60 mg, CIWA protocol, Zosynand a mean 04/05/2021 pt remains in the ICU , he is not doing well generally, is saturating is 89-94% on 15 L oxygen via nasal cannula, distal tachypneic and dyspneic, is still confused. His blood pressure is acceptable and is making good urine output. WBC is 16 K. Hemoglobin is 11.9, platelet count 107. Creatinine is better today at 1.2 which is within the reference range. Blood cultures are negative so far. Chest x-ray: Diffuse bilateral opacity with relative sparing of the right lower lobe again seen, left lower lobe collapse with small left pleural effusion. Patient remains on Zosyn, normal saline at 1 30 mL/h, got 1 dose of Lasix today Review of systems: N/a, and is currently confused and cannot provide information Active Medications Generic Name Dose Route Start Last Admin Trade Name Freq PRN Reason Stop Dose Admin Albuterol/Ipratropium 3 ml 04/03/21 12:00 04/05/21 07:56 Ipratropium-Albuterol 3 Ml Neb INHALATION 3 ml RT-QID BELLE Administration Albuterol/Ipratropium 3 ml 04/03/21 08:19 04/04/21 03:26 Ipratropium-Albuterol 3 Ml Neb INHALATION 3 ml RT-Q2H PRN Administration Shortness Of Breath Or Wheezing Budesonide 1 mg 04/03/21 20:00 04/05/21 07:56 Budesonide 1 Mg/2 Ml Nebu INHALATION 1 mg RT-BID BELLE Administration Enoxaparin Sodium 40 mg 04/01/21 09:00 04/05/21 08:46 Enoxaparin 40 Mg/0.4 Ml Syringe SQ 40 mg DAILY BELLE Administration Formoterol Fumarate 20 mcg 04/03/21 20:00 04/05/21 07:56 Formoterol Fumarate 20 Mcg/2 Ml Nebu INHALATION 20 mcg RT-BID BELLE Administration Haloperidol Lactate 5 mg 04/01/21 16:51 04/03/21 23:22 Haloperidol Lactate 5 Mg/Ml 1 Ml Vial IVP 5 mg Q6H PRN Administration Agitation or Acute Psychosis Piperacillin Sod/Tazobactam 100 mls @ 25 mls/hr 04/03/21 11:00 04/05/21 02:47 Sod 3.375 gm/ Sodium Chloride IVPB 25 mls/hr Q8H BELLE Administration Insulin Aspart 0 unit 04/02/21 00:00 04/05/21 05:17 Insulin Aspart (Novolog) 100 Unit/Ml Vial SQ Not Given Q6H [facility] Protocol Labetalol HCl 20 mg 04/05/21 08:30 04/05/21 08:47 Labetalol 5 Mg/Ml Vial Mdv IVP 20 mg Q4H BELLE Administration Lorazepam 1 mg 04/04/21 09:28 04/05/21 03:57 Lorazepam 2 Mg/Ml Inj IV 1 mg Q4HR PRN Administration CIWA 8 or 9 Lorazepam 1 mg 04/04/21 09:29 Lorazepam 2 Mg/Ml Inj IV Q4HR PRN CIWA 10 to 15 Methylprednisolone Sodium Succinate 60 mg 04/03/21 08:30 04/05/21 05:18 Methylprednisolone Sod Succi 125 Mg/2 Ml Vial IV 60 mg Q6HR BELLE Administration Miscellaneous Information 1 each 04/01/21 19:10 Potassium Replacement Protocol 1 Each Misc MISCELLANE DAILY PRN Per Protocol Protocol Miscellaneous Information 1 each 04/02/21 06:13 Potassium Replacement Protocol 1 Each Misc MISCELLANE DAILY PRN Per Protocol Protocol Naloxone HCl 0.2 mg 04/01/21 06:31 Naloxone 0.4 Mg/Ml 1 Ml Vial IV Q2M PRN Opioid Reversal Naloxone HCl 0.2 mg 04/01/21 06:38 Naloxone 0.4 Mg/Ml 1 Ml Vial IV Q2M PRN Opioid Reversal Ondansetron HCl 4 mg 04/01/21 06:38 Ondansetron 4 Mg/2 Ml Vial IVP Q8HR PRN Nausea And Vomiting Pantoprazole Sodium 40 mg 04/01/21 09:00 04/05/21 08:46 Pantoprazole 40 Mg/10 Ml Vial IV 40 mg DAILY BELLE Administration Thiamine HCl 100 mg 04/04/21 09:00 04/05/21 08:47 Thiamine 100 Mg/Ml 2 Ml Vial IVP 100 mg DAILY BELLE Administration Objective - Vital Signs Vital signs: Vital Signs Temp 97.8 F 04/05/21 08:00 Pulse 76 04/05/21 09:00 Resp 30 H 04/05/21 07:00 BP 120/82 04/05/21 09:00 Pulse Ox 90 L 04/05/21 09:00 Intake & Output 04/04/21 04/05/21 04/05/21 18:59 06:59 18:59 Intake Total 1530 1760 170 Output Total 475 520 160 Balance 1055 1240 10 Weight 95.8 kg Intake: IV 1430 1760 170 Piperacillin-Tazobactam 3 200 .375 gm In Sodium Chloride 0.9% 100 ml @ 25 mls/hr IVPB Q8H BELLE Rx#: [id number] Sodium Chloride 0.9% 1, 1430 1560 170 000 ml @ 130 mls/hr IV . Q7H42M BELLE Rx#:[id number] Intake, IV Titration 100 Amount Piperacillin-Tazobactam 3 100 .375 gm In Sodium Chloride 0.9% 100 ml @ 25 mls/hr IVPB Q8H BELLE Rx#: [id number] Output: Urine 475 520 160 Other: Voiding Method Indwelling Catheter Indwelling Catheter Indwelling Catheter - Exam -GENERAL: The patient is confused, not in any acute distress. Well developed, well nourished. HEENT: Pupils are round and equally reacting to light. EOMI. No scleral icterus. No conjunctival pallor. Normocephalic, atraumatic. No pharyngeal erythema. No thyromegaly. CARDIOVASCULAR: S1 and S2 present. No murmurs, rubs, or gallops. -PULMONARY: Chest is clear to auscultation, no crackles. Bilateral scattered wheezing. Patient is on 15 L via nasal cannula Gastrointestinal: Soft, None-tender, nondistended, normoactive bowel sounds. No palpable organomegaly. MUSCULOSKELETAL: No joint swelling or deformity. EXTREMITIES: No cyanosis, clubbing, or pedal edema. NEUROLOGICAL: Gross neurological examination did not reveal any focal deficits. SKIN: No rashes. no petechiae. - Labs CBC & Chem 7: 04/05/21 03:04 04/05/21 03:11 Labs: Abnormal Lab Results - Last 24 Hours (Table) 04/04/21 04/05/21 04/05/21 Range/Units 11:45 03:04 03:11 WBC 16.0 H (3.8-10.6) k/uL RBC 3.52 L (4.30-5.90) m/uL Hgb 11.9 L (13.0-17.5) gm/dL Hct 37.7 L (39.0-53.0) % MCV 107.3 H (80.0-100.0) fL Neutrophils # 14.9 H (1.3-7.7) k/uL Lymphocytes # 0.5 L (1.0-4.8) k/uL Chloride 121 H (98-107) mmol/L Carbon Dioxide 15 L (22-30) mmol/L BUN 30 H (9-20) mg/dL POC Glucose (mg/dL) 103 H (75-99) mg/dL Calcium 7.1 L (8.4-10.2) mg/dL Microbiology - Last 24 Hours (Table) 04/01/21 15:27 Blood Culture - Preliminary Blood No Growth after 72 hours 04/01/21 15:27 Blood Culture - Preliminary Blood No Growth after 72 hours Assessment and Plan Assessment: Aspiration pneumonia Suspected alcohol withdrawal Toxic/metabolic encephalopathy with altered mental status Hypertension Recurrent falls on admission Acute hypoxic respiratory failure secondary to above Possible alcoholic liver disease with ascites Plan: This is a pleasant 70 years old male who presents with aspiration pneumonia, alcoholic liver disease and possible withdrawal seizure Continue with her vitamins and CIWA protocols. No need for seizure medication. Neurology on the case Continue with Zosyn and monitor breathing patient kept in the ICU, with pulmonary/critical care team on the case. Labs and medication were reviewed.. Continue same treatment. Continue with symptomatic treatment. Resume home medication. Monitor lytes and vitals. DVT and GI prophylaxis. Further recommendationsas per clinical course of the sarah penn DVT prophylaxis: SubcutaneousLovenox GI Prophylaxis: Ppi Prognosis is guarded Dr. Pro resume the care of the patient tomorrow
--- NOTE | 2021-04-05 10:29 | P.PN ---
Subjective Progress Note Date: 04/05/21 Principal diagnosis: hypoxia, generalized weakness, falls This is a 70-year-old male patient with a history of hypertension and alcohol abuse. He did have an ongoing weakness and falls at home. He had been drinking daily and not eating much. He presented to the emergency room yesterday with shortness of breath and feelings of dehydration. X-ray of the left hip revealed no fracture. X-ray of the pelvis reveals no fracture. X-ray of the abdomen revealed nonacute abdomen. No free air. Computed tomography scan of the brain revealed cerebral atrophy. No acute intracranial abnormalities. Chest x-ray revealed left greater than right bibasilar pleural parenchymal disease. He was admitted to the regular medical floor. Last evening approximately 5:30 the patient was found on the floor lethargic and minimally responsive. He was only arousing to loud questions. ABGs, chest x-ray and labs were drawn. He was given IV Lasix and transferred to the intensive care unit for concerns regarding possible seizure. He is seen today in consultation. He is currently resting in bed. He is barely arousable. He is mumbling. He is maintaining O2 saturations in the 90s on 4 L/m per nasal cannula. He does have 0.9 normal saline at 130 mL by mouth per hour. Suspect alcohol withdrawal syndrome. He is on the CIWA protocol. Abdomen is distended. He is currently on ceftriaxone and azithromycin. Lovenox for DVT prophylaxis. Haldol for agitation. Thiamine. ABGs revealed a pO2 of 78, pCO2 22, pH 7.46 on 32% FiO2. White count 8.1. Hemoglobin 9.9. MCV 108.9. Platelets 263. Sodium 136. Potassium 3.2. Creatinine 1.58. ProBNP 3300. Troponin negative. Serum alcohol level was less than 10. INR 2.5. On 04/03/2021 patient seen in follow-up in the intensive care unit. He is short of breath, and audibly wheezy during today's exam, he is on 10 L of oxygen this morning, with a pulse ox of 93-95%, he is currently on 0.9 normal saline at a rate of 1:30 ML per hour, he remains on CIWA protocol for acute alcohol withdrawal, he received a total of 6 mg of Ativan overnight in addition to haldol. he is confused, he is lethargic, he is not following commands. Lung sounds reveal equal air entry bilaterally, with diffuse wheezing throughout.remains on antibiotics in the combination of Zithromax and Rocephin, we added back pain treatments and IV steroids this morning. today's chest x-ray shows new extensive airspace disease in the right upper and mid lung zone, left basilar pleural parenchymal disease was again seen with possible deep sulcus and pneumothorax could not be definitely excluded. today's labs have been reviewed, and there has been an increase in patient's white blood cell count up to 16.9, hemoglobin is 11.3, sodium is 139, potassium is 4.5, chloride is 114, CO2 is 16, BUN of 27, creatinine is 1.41. IV fluids infusing at a rate of 1:30 ML per hour, patient has been nothing by mouth in view of his decreased level of consciousness, his had limited oral intake, his urine output has been in the order of 25-30 ML per hour. On 04/04/2021 patient seen in follow-up in the intensive care unit, he remains poorly responsive, breathing spontaneously, he is currently on 11 L per high flow nasal cannula, his pulse ox is 91-97%, he sounds less bronchospastic on today's exam, lung sounds reveal diffuse rhonchi, and some scattered wheezes. Febrile overnight, hemodynamically has been stable, he remains on 0.9 normal saline at a rate of 1:30 ML per hour, his been kept nothing by mouth in view of his decreased level of consciousness. His CODE STATUS is DO NOT RESUSCITATE, no new chest x-ray today, yesterday's chest x-ray showed new extensive airspace disease in the right upper and right midlung zone and left basilar pleural parenchymal disease. Possibility of aspiration pneumonia is suspected, his antibiotic was switched to Zosyn. His white blood cell count is improving on today's labs. He is not able to produce a sputum specimen for culture, his blood cultures have been negative thus far. He is less tachycardic, he is in sinus mechanism with a controlled rate, he was started on steroids and breathing treatments, DVT and GI prophylaxis. Remains on CIWA protocol, received 2 mg of Ativan this morning. Remains calm, not opening eyes to verbal or tactile stimulation. On 04/05/2021 patient seen in follow-up in the intensive care unit, this morning his mentation is still Altered, he is poorly responsive, breathing spontane ously, he is on 15 L of oxygen per high flow nasal cannula with O2 sat of 90- 94%, patient has been afebrile, hemodynamically he is been stable, he is actually a bit hypertensive this morning, with a blood pressure of 170/91. He remains on 0.9 normal saline at 130 ML per hour, and he is significantly in positive fluid balance. He is lethargic, he has not been able to clear any secretions, lung sounds reveal diffuse rhonchi, this chest x-ray shows diffuse bilateral opacities with interval worsening, left lower lobe collapse, small left pleural effusion slightly increased in size compared to prior. No pneumothorax. She remains on IV steroids, nebulized bronchodilators, and Zosyn. Remains on CIWA protocol. His CIWA scale is 8 or 9, he did receive 1 dose of Ativan early this morning. Hospice and palliative care consultation was placed after discussing chest condition with the patient's nephew Og, who agreed to hospice. For now patient continues on supportive treatment. Objective - Vital Signs Vital signs: Vital Signs Temp 97.8 F 04/05/21 08:00 Pulse 81 04/05/21 10:00 Resp 30 H 04/05/21 07:00 BP 137/96 04/05/21 10:00 Pulse Ox 94 L 04/05/21 10:00 Intake & Output 04/04/21 04/05/21 04/05/21 18:59 06:59 18:59 Intake Total 1530 1760 190 Output Total 475 520 685 Balance 1055 1240 -495 Weight 95.8 kg Intake: IV 1430 1760 190 Piperacillin-Tazobactam 3 200 .375 gm In Sodium Chloride 0.9% 100 ml @ 25 mls/hr IVPB Q8H BELLE Rx#: [id number] Sodium Chloride 0.9% 1, 1430 1560 190 000 ml @ 130 mls/hr IV . Q7H42M BELLE Rx#:[id number] Intake, IV Titration 100 Amount Piperacillin-Tazobactam 3 100 .375 gm In Sodium Chloride 0.9% 100 ml @ 25 mls/hr IVPB Q8H BELLE Rx#: [id number] Output: Urine 475 520 685 Other: Voiding Method Indwelling Catheter Indwelling Catheter Indwelling Catheter - Exam GENERAL EXAM: poorly responsive, 70-year-old white male, 15 L of oxygen pulse ox of 92%, comfortable in no apparent distress. HEAD: Normocephalic/atraumatic. EYES: Normal reaction of pupils, equal size. Conjunctiva pink, sclera white. NOSE: Clear with pink turbinates. THROAT: No erythema or exudates. NECK: No masses, no JVD, no thyroid enlargement, no adenopathy. CHEST: No chest wall deformity. Symmetrical expansion. LUNGS: Equal air entry with diffuse rhonchi, minimal wheezes CVS: Regular rate and rhythm, normal S1 and S2, no gallops, no murmurs, no rubs ABDOMEN: Soft, nontender. No hepatosplenomegaly, normal bowel sounds, no guarding or rigidity. EXTREMITIES: No clubbing, no edema, no cyanosis, 2+ pulses and upper and lower extremities. MUSCULOSKELETAL: Muscle strength and tone normal. SPINE: No scoliosis or deformity SKIN: No rashes CENTRAL NERVOUS SYSTEM: Unresponsive to verbal stimulation, unresponsive to tactile stimulation, withdraws from painful stimuli with deep pain stimuli. No focal deficits, tone is normal in all 4 extremities. - Labs CBC & Chem 7: 04/05/21 03:04 04/05/21 03:11 Labs: Abnormal Lab Results - Last 24 Hours (Table) 04/04/21 04/05/21 04/05/21 Range/Units 11:45 03:04 03:11 WBC 16.0 H (3.8-10.6) k/uL RBC 3.52 L (4.30-5.90) m/uL Hgb 11.9 L (13.0-17.5) gm/dL Hct 37.7 L (39.0-53.0) % MCV 107.3 H (80.0-100.0) fL Neutrophils # 14.9 H (1.3-7.7) k/uL Lymphocytes # 0.5 L (1.0-4.8) k/uL Chloride 121 H (98-107) mmol/L Carbon Dioxide 15 L (22-30) mmol/L BUN 30 H (9-20) mg/dL POC Glucose (mg/dL) 103 H (75-99) mg/dL Calcium 7.1 L (8.4-10.2) mg/dL Microbiology - Last 24 Hours (Table) 04/01/21 15:27 Blood Culture - Preliminary Blood No Growth after 72 hours 04/01/21 15:27 Blood Culture - Preliminary Blood No Growth after 72 hours Assessment and Plan Plan: Assessment: #1. Altered mental status, multifactorial, related to acute EtOH withdrawal, and bilateral pneumonia, possibly related to aspiration #2. Daily alcohol use #3. Acute hypoxic respiratory failure secondary to possibility of aspiration related to pneumonia #4. Coagulopathy suspect secondary to liver disease #5. Acute kidney injury related to ATN, on IV fluids, renal status slightly improved on today's labs #6. History of hypertension #7. Poor nutritional status related to chronic alcoholism #8. Ascites related to EtOH and chronic liver disease Plan: Maintain aspiration precautions Continue steroids and breathing treatments Chest x-ray was reviewed We'll give 1 dose of Lasix Cutback IV fluids to KVO Palliative care hospice was discussed with the patient's interview And the nephew agreed to hospice and a consultation was placed For now continue supportive treatment I performed a history & physical examination of the patient and discussed their management with my nurse practitioner, Kaitlin Deleon. I reviewed the nurse pr actitioner's note and agree with the documented findings and plan of care. Lung sounds are positive for diffuse wheezes. The findings and the impression was discussed with the patient. I attest to the documentation by the nurse practitioner. Time with Patient: Less than 30
[2021-04-05 11:47] LABS: Glucose,Whole Blood 89 mg/dL (75-99)
[2021-04-05 17:28] LABS: Glucose,Whole Blood 95 mg/dL (75-99)
[2021-04-05 23:45] LABS: Glucose,Whole Blood 86 mg/dL (75-99)
[2021-04-06] MEDS: LABETALOL 5 MG/ML VIAL MDV IVP SCH ×6 (04:19→23:38)
[2021-04-06] MEDS: PIPERACILLIN-TAZOBACTAM 3.375 GM in SODIUM CHLORIDE 0.9% 100 ML IVPB SCH ×3 (04:21→18:10)
[2021-04-06 04:27] LABS: Basophils % (A) 0 %; Eosinophils # (A) 0.2 k/uL (0-0.7); Eosinophils % (A) 1 %; HCT 37.5 % (39.0-53.0); HGB 11.5 gm/dL (13.0-17.5); Hypochromasia Moderate; Lymphocytes # (A) 0.9 k/uL (1.0-4.8); Lymphocytes % (A) 4 %; MCH 33.5 pg (25.0-35.0); MCHC 30.5 g/dL (31.0-37.0); Macrocytosis Marked; Mean Platelet Volume 7.9; Monocytes # (A) 0.5 k/uL (0-1.0); Monocytes % (A) 2 %; Neutrophils # (A) 20.2 k/uL (1.3-7.7); Neutrophils % (A) 93 %; Platelet Count 335 k/uL (150-450); RBC 3.42 m/uL (4.30-5.90); RDW 15.3 % (11.5-15.5); WBC 21.8 k/uL (3.8-10.6)
[2021-04-06 04:29] LABS: MCV 109.7 fL (80.0-100.0)
[2021-04-06 05:10] LABS: Potassium 3.7 mmol/L (3.5-5.1)
[2021-04-06 05:46] LABS: Glucose,Whole Blood 92 mg/dL (75-99)
[2021-04-06] MEDS: INSULIN ASPART (NovoLOG) 100 UNIT/ML VIAL SQ SCH ×3 (05:46→17:51)
[2021-04-06] MEDS: methylPREDNISolone SOD SUCCI 125 MG/2 ML VIAL IV SCH ×3 (05:50→18:10)
[2021-04-06 06:13] LABS: Calcium 7.5 mg/dL (8.4-10.2)
[2021-04-06] MEDS: POTASSIUM CHLORIDE 10 MEQ in WATER FOR INJECTION 1 100ML.BAG IVPB SCH ×2 (06:29→09:13)
--- NOTE | 2021-04-06 07:26 | XR ---
EXAMINATION TYPE: XR chest 1V portable DATE OF EXAM: 04/06/2021 Comparison: 04/05/2021 Clinical History: 70-year-old male Congestion Findings: Left heart margin shows greater obscuration secondary to adjacent pleural parenchymal opacity. Worsen ing aeration throughout the left lung. Continued airspace opacity right upper lung. Multiple rib frac ture deformities appear largely chronic. Underlying effusion at the left base is difficult to exclude . Marginated edge projecting at the periphery of the left midlung. Impression: 1. Marginated edge projecting at the periphery of the left midlung suspected projectional artifact. S hort interval follow-up upright expiratory phase radiograph recommended to exclude the less likely po ssibility of an underlying pneumothorax. 2. Continued bilateral airspace disease, left greater than right, with interval worsening on the left . Possible small left pleural effusion.
--- NOTE | 2021-04-06 08:04 | P.PN ---
Subjective Progress Note Date: 04/06/21 This is a 70-year-old male patient with a history of hypertension and alcohol abuse. He did have an ongoing weakness and falls at home. He had been drinking daily and not eating much. He presented to the emergency room yesterday with shortness of breath and feelings of dehydration. X-ray of the left hip revealed no fracture. X-ray of the pelvis reveals no fracture. X-ray of the abdomen revealed nonacute abdomen. No free air. Computed tomography scan of the brain revealed cerebral atrophy. No acute intracranial abnormalities. Chest x-ray revealed left greater than right bibasilar pleural parenchymal disease. He was admitted to the regular medical floor. Last evening approximately 5:30 the patient was found on the floor lethargic and minimally responsive. He was only arousing to loud questions. ABGs, chest x-ray and labs were drawn. He was given IV Lasix and transferred to the intensive care unit for concerns regarding possible seizure. He is seen today in consultation. He is currently resting in bed. He is barely arousable. He is mumbling. He is maintaining O2 saturations in the 90s on 4 L/m per nasal cannula. He does have 0.9 normal saline at 130 mL by mouth per hour. Suspect alcohol withdrawal syndrome. He is on the CIWA protocol. Abdomen is distended. He is currently on ceftriaxone and azithromycin. Lovenox for DVT prophylaxis. Haldol for agitation. Thiamine. ABGs revealed a pO2 of 78, pCO2 22, pH 7.46 on 32% FiO2. White count 8.1. Hemoglobin 9.9. MCV 108.9. Platelets 263. Sodium 136. Potassium 3.2. Creatinine 1.58. ProBNP 3300. Troponin negative. Serum alcohol level was less than 10. INR 2.5. On 04/03/2021 patient seen in follow-up in the intensive care unit. He is short of breath, and audibly wheezy during today's exam, he is on 10 L of oxygen this morning, with a pulse ox of 93-95%, he is currently on 0.9 normal saline at a rate of 1:30 ML per hour, he remains on CIWA protocol for acute alcohol withdrawal, he received a total of 6 mg of Ativan overnight in addition to haldol. he is confused, he is lethargic, he is not following commands. Lung sounds reveal equal air entry bilaterally, with diffuse wheezing throughout.lorraine ins on antibiotics in the combination of Zithromax and Rocephin, we added back pain treatments and IV steroids this morning. today's chest x-ray shows new extensive airspace disease in the right upper and mid lung zone, left basilar pleural parenchymal disease was again seen with possible deep sulcus and pneumothorax could not be definitely excluded. today's labs have been reviewed, and there has been an increase in patient's white blood cell count up to 16.9, hemoglobin is 11.3, sodium is 139, potassium is 4.5, chloride is 114, CO2 is 16, BUN of 27, creatinine is 1.41. IV fluids infusing at a rate of 1:30 ML per hour, patient has been nothing by mouth in view of his decreased level of consc iousness, his had limited oral intake, his urine output has been in the order of 25-30 ML per hour. On 04/04/2021 patient seen in follow-up in the intensive care unit, he remains poorly responsive, breathing spontaneously, he is currently on 11 L per high flow nasal cannula, his pulse ox is 91-97%, he sounds less bronchospastic on today's exam, lung sounds reveal diffuse rhonchi, and some scattered wheezes. Febrile overnight, hemodynamically has been stable, he remains on 0.9 normal saline at a rate of 1:30 ML per hour, his been kept nothing by mouth in view of his decreased level of consciousness. His CODE STATUS is DO NOT RESUSCITATE, no new chest x-ray today, yesterday's chest x-ray showed new extensive airspace disease in the right upper and right midlung zone and left basilar pleural parenchymal disease. Possibility of aspiration pneumonia is suspected, his antibiotic was switched to Zosyn. His white blood cell count is improving on today's labs. He is not able to produce a sputum specimen for culture, his blood cultures have been negative thus far. He is less tachycardic, he is in sinus mechanism with a controlled rate, he was started on steroids and breathing treatments, DVT and GI prophylaxis. Remains on CIWA protocol, received 2 mg of Ativan this morning. Remains calm, not opening eyes to verbal or tactile stimulation. On 04/05/2021 patient seen in follow-up in the intensive care unit, this morning his mentation is still Altered, he is poorly responsive, breathing spontaneously, he is on 15 L of oxygen per high flow nasal cannula with O2 sat of 90-94%, patient has been afebrile, hemodynamically he is been stable, he is actually a bit hypertensive this morning, with a blood pressure of 170/91. He remains on 0.9 normal saline at 130 ML per hour, and he is significantly in positive fluid balance. He is lethargic, he has not been able to clear any sec retions, lung sounds reveal diffuse rhonchi, this chest x-ray shows diffuse bilateral opacities with interval worsening, left lower lobe collapse, small left pleural effusion slightly increased in size compared to prior. No pneumothorax. She remains on IV steroids, nebulized bronchodilators, and Zosyn. Remains on CIWA protocol. His CIWA scale is 8 or 9, he did receive 1 dose of Ativan early this morning. Hospice and palliative care consultation was placed after discussing chest condition with the patient's nephew Og, who agreed to hospice. For now patient continues on supportive treatment. 04/06/2021, the patient is being seen in follow-up. This is an alcoholic 70-year-old patient with known history of chronic alcoholic liver disease and chronic debility who presented with hypoxic respiratory failure, altered mental status and aspiration pneumonia. The patient is still doing poorly. He remains on 15 L of oxygen by nasal cannula and is also on 100% nonrebreather facemask.. He remains on IV Zosyn. Hemodynamically stable. Quite lethargic. He remains on CIWA protocol. The patient is receiving supportive care in the ICU in preparation for hospice care at which the patient's family agreed regarding his advanced and debilitated condition. This morning, the patient c ontinues to move 1. Unresponsive. Chest x-rays showing diffuse but the pulmonary infiltrates, there is right upper lobe pulmonary infiltrate in addition to extensive infiltration of the left lung with questionable left apical pneumothorax. There is an average seen in the periphery of the left upp er lobe which obviously raises the concern for pneumothorax. Meanwhile, the patient remains on IV Zosyn for now. Blood cultures of been negative. On the blood work today white cell count is 21 which is higher compared to yesterday and the sodium level is up to 148 with a serum bicarb of 17 and a creatinine of 1.3. IV fluids are in the form of 0.9 at the rate of 20 mL an hour. Objective - Vital Signs Vital signs: Vital Signs Temp 97.7 F 04/06/21 04:00 Pulse 94 04/06/21 07:00 Resp 23 04/06/21 07:00 BP 141/93 04/06/21 07:00 Pulse Ox 95 04/06/21 07:00 Intake & Output 04/05/21 04/06/21 04/06/21 18:59 06:59 18:59 Intake Total 430 440 20 Output Total 2260 480 30 Balance -1830 -40 -10 Weight 95.5 kg Intake: IV 430 440 20 Piperacillin-Tazobactam 3 100 200 .375 gm In Sodium Chloride 0.9% 100 ml @ 25 mls/hr IVPB Q8H [facility] Rx#: [id number] Sodium Chloride 0.9% 1, 330 240 20 000 ml @ 130 mls/hr IV . Q7H42M [facility] Rx#:[id number] Output: Urine 2260 480 30 Other: Voiding Method Indwelling Catheter Indwelling Catheter - Exam GENERAL EXAM: poorly responsive, 70-year-old white male, 15 L of oxygen pulse ox of 92%, comfortable in mild degree of respiratory distress currently on 100% nonrebreather facemask. HEAD: Normocephalic/atraumatic. EYES: Normal reaction of pupils, equal size. Conjunctiva pink, sclera white. NOSE: Clear with pink turbinates. THROAT: No erythema or exudates. NECK: No masses, no JVD, no thyroid enlargement, no adenopathy. CHEST: No chest wall deformity. Symmetrical expansion. LUNGS: Equal air entry with diffuse rhonchi, minimal wheezes CVS: Regular rate and rhythm, normal S1 and S2, no gallops, no murmurs, no rubs ABDOMEN: Soft, nontender. No hepatosplenomegaly, normal bowel sounds, no guarding or rigidity. EXTREMITIES: No clubbing, no edema, no cyanosis, 2+ pulses and upper and lower extremities. MUSCULOSKELETAL: Muscle strength and tone normal. SPINE: No scoliosis or deformity SKIN: No rashes CENTRAL NERVOUS SYSTEM: Unresponsive to verbal stimulation, unresponsive to tactile stimulation, withdraws from painful stimuli with deep pain stimuli. No focal deficits, tone is normal in all 4 extremities. - Labs CBC & Chem 7: 04/06/21 03:54 04/06/21 03:54 Labs: Abnormal Lab Results - Last 24 Hours (Table) 04/06/21 04/06/21 Range/Units 03:54 03:54 WBC 21.8 H (3.8-10.6) k/uL RBC 3.42 L (4.30-5.90) m/uL Hgb 11.5 L (13.0-17.5) gm/dL Hct 37.5 L (39.0-53.0) % MCV 109.7 H (80.0-100.0) fL MCHC 30.5 L (31.0-37.0) g/dL Neutrophils # 20.2 H (1.3-7.7) k/uL Lymphocytes # 0.9 L (1.0-4.8) k/uL Macrocytosis Marked A Sodium 148 H (137-145) mmol/L Chloride 121 H (98-107) mmol/L Carbon Dioxide 17 L (22-30) mmol/L BUN 32 H (9-20) mg/dL Creatinine 1.32 H (0.66-1.25) mg/dL Calcium 7.5 L (8.4-10.2) mg/dL Microbiology - Last 24 Hours (Table) 04/01/21 15:27 Blood Culture - Preliminary Blood No Growth after 96 hours 04/01/21 15:27 Blood Culture - Preliminary Blood No Growth after 96 hours Assessment and Plan Plan: #1. Altered mental status, multifactorial, related to acute EtOH withdrawal, and bilateral pneumonia, possibly related to aspiration interval worsening of the bilateral pulmonary infiltrates. There is also worsening of leukocytosis. The patient is currently on 100% nonrebreather facemask and the patient is also on 15 L high flow. IV antibiotics in the form of IV Zosyn. He is nothing by mouth for now. He was dynamically stable on no pressors. #2 Alcoholism #3. Acute hypoxic respiratory failure secondary to possibility of aspiration related to pneumonia #4. Coagulopathy suspect secondary to liver disease #5. Acute kidney injury related to ATN, on IV fluids, renal status slightly worse compared to yesterday and is up to 1.3. #6. Hypertension #7. Poor nutritional status related to chronic alcoholism #8. Chronic alcoholic liver disease with secondary ascites Plan: Maintain aspiration precautions Continue steroids and breathing treatments Chest x-ray was reviewed Fluids at 75 mL an hour of normal saline hospice was discussed with the patient's were going to place a consultation for hospice. And the nephew agreed to hospice and a consultation was placed For now continue supportive treatment it based on the fact that there is a plan to proceed with hospice care, no need for repeating chest x-ray. Continue supportive care only filled the family makes a final decision. This will be hopefully done today.
[2021-04-06] MEDS: FORMOTEROL FUMARATE 20 MCG/2 ML NEBU INHALATION SCH ×2 (08:18→20:14)
[2021-04-06] MEDS: BUDESONIDE 1 MG/2 ML NEBU INHALATION SCH ×2 (08:18→20:15)
[2021-04-06] MEDS: IPRATROPIUM-ALBUTEROL 3 ML NEB INHALATION SCH ×4 (08:18→20:14)
[2021-04-06] MEDS: SODIUM CHLORIDE 0.9% 1,000 ML IV SCH ×2 (09:13→20:44)
[2021-04-06] MEDS: ENOXAPARIN 40 MG/0.4 ML SYRINGE SQ SCH (09:14)
[2021-04-06] MEDS: PANTOPRAZOLE 40 MG/10 ML VIAL IV SCH (09:14)
[2021-04-06] MEDS: THIAMINE 100 MG/ML 2 ML VIAL IVP SCH (09:14)
[2021-04-06 11:33] LABS: Glucose,Whole Blood 98 mg/dL (75-99)
--- NOTE | 2021-04-06 16:51 | P.PN ---
Subjective Progress Note Date: 04/06/21 Neri Kurtz is a 70 yo M with PMH of alcoholism, drinks a fifth of whiskey daily who presented to the ED with increasing weakness and falls at home. He states that he had not been feeling like himself, stumbling and after falling at home he decided to come to the ED. He denies nausea, vomiting or diarrhea. He does endorse cough. Pt denies sweats or tremors. On presentation pt hypertensive, labs with Hgb 12, Cr 1.8, lactic 4. AST elevated, trop 0.04, BNP 3300. CXR with L basilar infiltrate. 04/02/2021 yesterday afternoon discovered to be nearly obtunded,lethargic, minimally responsive, received IV push Lasix and transferred to ICU with suspicions of EtOH seizures. Maintained on seizure precautions with seizure pads. Neurology consult in place, recommendations pending. Continues on IV fluid resuscitation, Haldol and CIWA protocol,recent seawall score 17. Remains lethargic, minimally conversant. Yesterday reported he drinks a gallon of whiskey daily. Brain CT for cerebral atrophy with no acute intracranial abnormality, atrophy increased compared to prior exam. ABGs noted. Chest x-ray reporting increasing left lower lobe pneumonia. Maintaining O2 sats in the 90s on 4 L nasal cannula. Pro-calcitonin elevated, 0.31. Maintained on azithromycin, ceftriaxone. Afebrile, normal WBC. Abdominal x-ray reported limited exam, nonacute, no free air, multiple old left-sided rib fractures. Abdominal ultrasound reporting ascites. Troponin 0.039, 0.038, 0.031. Hemoglobin 9.9, platelets 263, INR 2.5. Potassium 3.2, magnesium 1.9, creatinine 1.5. Alk phos trending down. 04/03/2021 continues on CIWA protocol, lethargic, maintained on 10 L high flow nasal cannula maintaining O2 sats in the 90s, respiratory rate in the 20s. Afebrile, WBC increased ,16.9. Creatinine 1.41. Chest x-ray reporting new extensive airspace disease in the right upper and midlung zone, left basilar pl eural pressure multiple disease on with possible deep sulcus and pneumothorax. Maintained on Rocephin and Zithromax, nebulized bronchodilators, IV steroids. 04/06/2021 significantly lethargic, nearly obtunded does not open eyes to his name, withdraws from noxious stimuli only. Seizure and aspiration precautions maintained. Continues on nebulized bronchodilators, steroids. maintained on 15 L high flow nasal cannula/ nonrebreather, maintaining O2 sats in the 90s, tachypneic respiratory rate 20-27. Chest x-ray reporting continued bilateral airspace disease left greater than right with interval worsening on the left, suggesting possibility of underlying pneumothorax. Continues on CIWA protocol, Zosyn. Afebrile, WBC increased to 21.8, blood cultures negative. Hemoglobin 9.5, platelets 335. Sodium increased to 148, bicarb 17, BUN 32, creatinine up to 1.32. Hospice consult placed as per patient's nephew. Case management disclosed that the nephew is actually not family but very close friend, who states he has medical DPOA papers and is attempting to locate them. In the meanwhile patient has estranged children, whereabouts are unknown. Objective - Vital Signs Vital signs: Vital Signs Temp 98.5 F 04/06/21 12:00 Pulse 90 04/06/21 14:00 Resp 25 H 04/06/21 14:00 BP 143/89 04/06/21 14:00 Pulse Ox 96 04/06/21 14:00 Intake & Output 04/05/21 04/06/21 04/06/21 18:59 06:59 18:59 Intake Total 430 440 640 Output Total 2260 480 320 Balance -1830 -40 320 Weight 95.5 kg Intake: IV 430 440 640 Piperacillin-Tazobactam 3 100 200 .375 gm In Sodium Chloride 0.9% 100 ml @ 25 mls/hr IVPB Q8H [facility] Rx#: [id number] Sodium Chloride 0.9% 1, 330 240 40 000 ml @ 130 mls/hr IV . Q7H42M [facility] Rx#:[id number] Sodium Chloride 0.9% 1, 600 000 ml @ 75 mls/hr IV . [id number] [facility] Rx#:[id number] Output: Urine 2260 480 320 Other: Voiding Method Indwelling Catheter Indwelling Catheter Indwelling Catheter - Exam General: Lethargic, nearly obtunded, moaning, respiratory effort increased,Vitals reviewed Eyes: PERRL, EOMI, conjunctiva normal HENT: normocephalic, mucus membranes dry Neck: supple, no JVD Lungs: Increased respiratory effort, tachypneic ,Lungs diminished with scattered rhonchi. Fine Expiratory wheezing. CV: tachycardic and rhythm, no murmur. Peripheral pulses 2+ Abdomen: soft,distended, no organomegaly, positive bowel sounds Skin: warm and dry. Neuro: Limited exam, unable to assess at this time. Withdraws to noxious stimuli only, unresponsive to verbal stimulation. - Labs CBC & Chem 7: 04/06/21 03:54 04/06/21 03:54 Labs: Abnormal Lab Results - Last 24 Hours (Table) 04/06/21 04/06/21 Range/Units 03:54 03:54 WBC 21.8 H (3.8-10.6) k/uL RBC 3.42 L (4.30-5.90) m/uL Hgb 11.5 L (13.0-17.5) gm/dL Hct 37.5 L (39.0-53.0) % MCV 109.7 H (80.0-100.0) fL MCHC 30.5 L (31.0-37.0) g/dL Neutrophils # 20.2 H (1.3-7.7) k/uL Lymphocytes # 0.9 L (1.0-4.8) k/uL Macrocytosis Marked A Sodium 148 H (137-145) mmol/L Chloride 121 H (98-107) mmol/L Carbon Dioxide 17 L (22-30) mmol/L BUN 32 H (9-20) mg/dL Creatinine 1.32 H (0.66-1.25) mg/dL Calcium 7.5 L (8.4-10.2) mg/dL Microbiology - Last 24 Hours (Table) 04/01/21 15:27 Blood Culture - Preliminary Blood No Growth after 96 hours 04/01/21 15:27 Blood Culture - Preliminary Blood No Growth after 96 hours Assessment and Plan Assessment: 1. Alcohol withdrawal with seizure in a patient with alcohol dependence. 2. Acute kidney injury, secondary to alcohol abuse, ATN. 3. Bilateral pneumonia possibly community-acquired, possibly aspiration, pos sible underlying pneumothorax 4. Acute hypoxic respiratory failure secondary to the above 5. Acute metabolic and toxic encephalopathy multifactorial, secondary to the above 6. Elevated AST 7. Elevated lactic 8. Ascites secondary to EtOH, Chronic liver disease. 9. No code, no CPR, no intubation 10. Poor nutritional status secondary to chronic alcoholism Plan: Continue on current medication regime ,monitoring and symptomatic treatment. Maintain supportive care ,ANTIBIOTICS, NEBULIZED BRONCHODILATORS, STEROIDS, CIWA protocol. Continue seizure and aspiration precautions. Hospice consult in place, refer to note above-nephew is actually a good friend and not actual family, attempting to locate his Medical DPOA papers. Children estranged. Social work/case management assisting. Prognosis poor given multiple complex medical issues. The impression and plan of care has been dictated as directed. : I performed a history and examination of this patient, discussed the same with the dictator. I agree with the dictator's note ,documented as a scribe. Any additional findings or plans will be noted.
[2021-04-06 17:52] LABS: Glucose,Whole Blood 95 mg/dL (75-99)
[2021-04-07 00:20] LABS: Glucose,Whole Blood 94 mg/dL (75-99)
[2021-04-07] MEDS: INSULIN ASPART (NovoLOG) 100 UNIT/ML VIAL SQ SCH ×4 (00:25→18:31)
[2021-04-07] MEDS: methylPREDNISolone SOD SUCCI 125 MG/2 ML VIAL IV SCH ×2 (00:28→06:30)
[2021-04-07] MEDS: LABETALOL 5 MG/ML VIAL MDV IVP SCH ×6 (02:34→20:35)
[2021-04-07] MEDS: PIPERACILLIN-TAZOBACTAM 3.375 GM in SODIUM CHLORIDE 0.9% 100 ML IVPB SCH ×3 (02:40→18:41)
[2021-04-07 04:22] LABS: Albumin 2.6 g/dL (3.5-5.0); Calcium 7.5 mg/dL (8.4-10.2); Total Protein 5.9 g/dL (6.3-8.2)
[2021-04-07 04:43] LABS: Potassium 5.1 mmol/L (3.5-5.1)
[2021-04-07 05:26] LABS: Basophils # (A) 0.1 k/uL (0-0.2); Basophils % (A) 0 %; Eosinophils # (A) 0.1 k/uL (0-0.7); Eosinophils % (A) 0 %; HCT 36.9 % (39.0-53.0); HGB 11.1 gm/dL (13.0-17.5); Hypochromasia Marked; Lymphocytes # (A) 0.6 k/uL (1.0-4.8); Lymphocytes % (A) 3 %; MCHC 30.2 g/dL (31.0-37.0); MCV 112.5 fL (80.0-100.0); Mean Platelet Volume 8.4; Monocytes # (A) 0.7 k/uL (0-1.0); Monocytes % (A) 3 %; Neutrophils # (A) 22.4 k/uL (1.3-7.7); Neutrophils % (A) 94 %; Platelet Count 225 k/uL (150-450); RBC 3.28 m/uL (4.30-5.90); RDW 15.4 % (11.5-15.5); WBC 23.9 k/uL (3.8-10.6)
[2021-04-07 05:27] LABS: Macrocytosis Marked
[2021-04-07 06:19] LABS: Glucose,Whole Blood 98 mg/dL (75-99)
--- NOTE | 2021-04-07 07:11 | XR ---
EXAMINATION TYPE: XR chest 1V portable DATE OF EXAM: 04/07/2021 HISTORY: Shortness of breath. COMPARISON: 04/06/2021 TECHNIQUE: Single view of the chest is submitted. FINDINGS: Perihilar and upper lobe interstitial infiltrates persist. Persistent left lower lobe atelectasis and /or effusion. No definitive pneumothorax seen. The heart is stable. Hilar and mediastinal structures are within normal limits. Degenerative changes are seen of the dorsal spine. IMPRESSION: 1. Perihilar and upper lobe interstitial infiltrates persist. Persistent left lower lobe atelectasis and/or effusion. No definitive pneumothorax seen.
[2021-04-07] MEDS: FORMOTEROL FUMARATE 20 MCG/2 ML NEBU INHALATION SCH (07:38)
[2021-04-07] MEDS: IPRATROPIUM-ALBUTEROL 3 ML NEB INHALATION SCH ×4 (07:38→19:15)
[2021-04-07] MEDS: BUDESONIDE 1 MG/2 ML NEBU INHALATION SCH (07:38)
--- NOTE | 2021-04-07 07:53 | P.PN ---
Subjective Progress Note Date: 04/07/21 This is a 70-year-old male patient with a history of hypertension and alcohol abuse. He did have an ongoing weakness and falls at home. He had been drinking daily and not eating much. He presented to the emergency room yesterday with shortness of breath and feelings of dehydration. X-ray of the left hip revealed no fracture. X-ray of the pelvis reveals no fracture. X-ray of the abdomen revealed nonacute abdomen. No free air. Computed tomography scan of the brain revealed cerebral atrophy. No acute intracranial abnormalities. Chest x-ray revealed left greater than right bibasilar pleural parenchymal disease. He was admitted to the regular medical floor. Last evening approximately 5:30 the patient was found on the floor lethargic and minimally responsive. He was only arousing to loud questions. ABGs, chest x-ray and labs were drawn. He was given IV Lasix and transferred to the intensive care unit for concerns regarding possible seizure. He is seen today in consultation. He is currently resting in bed. He is barely arousable. He is mumbling. He is maintaining O2 saturations in the 90s on 4 L/m per nasal cannula. He does have 0.9 normal saline at 130 mL by mouth per hour. Suspect alcohol withdrawal syndrome. He is on the CIWA protocol. Abdomen is distended. He is currently on ceftriaxone and azithromycin. Lovenox for DVT prophylaxis. Haldol for agitation. Thiamine. ABGs revealed a pO2 of 78, pCO2 22, pH 7.46 on 32% FiO2. White count 8.1. Hemoglobin 9.9. MCV 108.9. Platelets 263. Sodium 136. Potassium 3.2. Creatinine 1.58. ProBNP 3300. Troponin negative. Serum alcohol level was less than 10. INR 2.5. On 04/03/2021 patient seen in follow-up in the intensive care unit. He is short of breath, and audibly wheezy during today's exam, he is on 10 L of oxygen this morning, with a pulse ox of 93-95%, he is currently on 0.9 normal saline at a ra te of 1:30 ML per hour, he remains on CIWA protocol for acute alcohol withdrawal, he received a total of 6 mg of Ativan overnight in addition to haldol. he is confused, he is lethargic, he is not following commands. Lung sounds reveal equal air entry bilaterally, with diffuse wheezing throughout.rem ains on antibiotics in the combination of Zithromax and Rocephin, we added back pain treatments and IV steroids this morning. today's chest x-ray shows new extensive airspace disease in the right upper and mid lung zone, left basilar pleural parenchymal disease was again seen with possible deep sulcus and pneumothorax could not be definitely excluded. today's labs have been reviewed, and there has been an increase in patient's white blood cell count up to 16.9, hemoglobin is 11.3, sodium is 139, potassium is 4.5, chloride is 114, CO2 is 16, BUN of 27, creatinine is 1.41. IV fluids infusing at a rate of 1:30 ML per hour, patient has been nothing by mouth in view of his decreased level of cons ciousness, his had limited oral intake, his urine output has been in the order of 25-30 ML per hour. On 04/04/2021 patient seen in follow-up in the intensive care unit, he remains poorly responsive, breathing spontaneously, he is currently on 11 L per high flow nasal cannula, his pulse ox is 91-97%, he sounds less bronchospastic on today's exam, lung sounds reveal diffuse rhonchi, and some scattered wheezes. Febrile overnight, hemodynamically has been stable, he remains on 0.9 normal saline at a rate of 1:30 ML per hour, his been kept nothing by mouth in view of his decreased level of consciousness. His CODE STATUS is DO NOT RESUSCITATE, no new chest x-ray today, yesterday's chest x-ray showed new extensive airspace disease in the right upper and right midlung zone and left basilar pleural parenchymal disease. Possibility of aspiration pneumonia is suspected, his antibiotic was switched to Zosyn. His white blood cell count is improving on today's labs. He is not able to produce a sputum specimen for culture, his blood cultures have been negative thus far. He is less tachycardic, he is in sinus mechanism with a controlled rate, he was started on steroids and breathing treatments, DVT and GI prophylaxis. Remains on CIWA protocol, received 2 mg of Ativan this morning. Remains calm, not opening eyes to verbal or tactile stimulation. On 04/05/2021 patient seen in follow-up in the intensive care unit, this morning his mentation is still Altered, he is poorly responsive, breathing spontaneously, he is on 15 L of oxygen per high flow nasal cannula with O2 sat of 90-94%, patient has been afebrile, hemodynamically he is been stable, he is actually a bit hypertensive this morning, with a blood pressure of 170/91. He remains on 0.9 normal saline at 130 ML per hour, and he is significantly in positive fluid balance. He is lethargic, he has not been able to clear any se cretions, lung sounds reveal diffuse rhonchi, this chest x-ray shows diffuse bilateral opacities with interval worsening, left lower lobe collapse, small left pleural effusion slightly increased in size compared to prior. No pneumothorax. She remains on IV steroids, nebulized bronchodilators, and Zosyn. Remains on CIWA protocol. His CIWA scale is 8 or 9, he did receive 1 dose of Ativan early this morning. Hospice and palliative care consultation was placed after discussing chest condition with the patient's nephew Og, who agreed to hospice. For now patient continues on supportive treatment. 04/06/2021, the patient is being seen in follow-up. This is an alcoholic 70-year-old patient with known history of chronic alcoholic liver disease and chronic debility who presented with hypoxic respiratory failure, altered mental status and aspiration pneumonia. The patient is still doing poorly. He remains on 15 L of oxygen by nasal cannula and is also on 100% nonrebreather facemask.. He remains on IV Zosyn. Hemodynamically stable. Quite lethargic. He remains on CIWA protocol. The patient is receiving supportive care in the ICU in preparation for hospice care at which the patient's family agreed regarding his advanced and debilitated condition. This morning, the patient continues to move 1. Unresponsive. Chest x-rays showing diffuse but the pulmonary infiltrates, there is right upper lobe pulmonary infiltrate in addition to extensive infiltration of the left lung with questionable left apical pneumothorax. There is an average seen in the periphery of the left up per lobe which obviously raises the concern for pneumothorax. Meanwhile, the patient remains on IV Zosyn for now. Blood cultures of been negative. On the blood work today white cell count is 21 which is higher compared to yesterday and the sodium level is up to 148 with a serum bicarb of 17 and a creatinine of 1.3. IV fluids are in the form of 0.9 at the rate of 20 mL an hour. 04/07/2021, the patient remains extremely lethargic, nonresponsive, he continues to moan, may withdraw to deep painful stimulation and grimaces to deep painful stimulation. Cannot hold a conversation. Still 100% nonrebreather facemask. His ammonia level was low. CAT scan of the brain that was done on 04/01/2021 showed chronic atrophy. No acute abnormalities were seen on the CAT scan of the brain. Meanwhile, the patient continues to be altered neurologically. At the same time, the patient's is having an acute hypoxic respiratory failure with diffuse but the pulmonary infiltrates with upper lobe predominance and a developing left sided pleural effusion. The patient is suspected to have aspiration. The patient is on IV Zosyn. Possibility of an acute lung injury cannot be completely excluded. There was a questionable pneumothorax on yesterday'sx, not seen on today's chest x-ray. I further note, they patient's sodium level is up to 151 and his potassium level is at 5.1. The patient also has developed an acute kidney injury and creatinine is at 1.4 with a BUN of 43. Note that this creatinine is slightly improved compared to the initial creatinine, admission which was at 1.8. There may be a component of chronic kidney disease. His white cell count is currently at 23 which is slightly h igher compared to yesterday. As such, the patient remains encephalopathy worsening hypoxemic respiratory failure. He remains on IV Zosyn. He remains on IV fluid with normal saline at the rate of 75 mL an hour. He remains on IV Solu Medrol 60 mg every 6 hours. He is on DuoNeb nebulized treatments around the clock. He has not received any Ativan overnight. He remains on IV Protonix Objective - Vital Signs Vital signs: Vital Signs Temp 97.8 F 04/07/21 04:00 Pulse 94 04/07/21 07:38 Resp 28 H 04/07/21 07:00 BP 149/102 04/07/21 07:00 Pulse Ox 96 04/07/21 07:38 Intake & Output 04/06/21 04/07/21 04/07/21 18:59 06:59 18:59 Intake Total 865 900 75 Output Total 435 365 25 Balance 430 535 50 Weight 95.5 kg Intake: IV 865 900 75 Sodium Chloride 0.9% 1, 40 000 ml @ 130 mls/hr IV . [id number] [facility] Rx#:[id number] Sodium Chloride 0.9% 1, 825 900 75 000 ml @ 75 mls/hr IV . [id number] [facility] Rx#:[id number] Output: Urine 435 365 25 Other: Voiding Method Indwelling Catheter Indwelling Catheter - Exam GENERAL EXAM: poorly responsive, 70-year-old white male, 15 L of oxygen pulse ox of 92%, comfortable in mild degree of respiratory distress currently on 100% nonrebreather facemask. HEAD: Normocephalic/atraumatic. EYES: Normal reaction of pupils, equal size. Conjunctiva pink, sclera white. NOSE: Clear with pink turbinates. THROAT: No erythema or exudates. NECK: No masses, no JVD, no thyroid enlargement, no adenopathy. CHEST: No chest wall deformity. Symmetrical expansion. LUNGS: Equal air entry with diffuse rhonchi, minimal wheezes CVS: Regular rate and rhythm, normal S1 and S2, no gallops, no murmurs, no rubs ABDOMEN: Soft, nontender. No hepatosplenomegaly, normal bowel sounds, no guarding or rigidity. EXTREMITIES: No clubbing, no edema, no cyanosis, 2+ pulses and upper and lower extremities. MUSCULOSKELETAL: Muscle strength and tone normal. SPINE: No scoliosis or deformity SKIN: No rashes CENTRAL NERVOUS SYSTEM: Unresponsive to verbal stimulation, unresponsive to tactile stimulation, withdraws from painful stimuli with deep pain stimuli. No focal deficits, tone is normal in all 4 extremities. - Labs CBC & Chem 7: 04/07/21 03:46 04/07/21 03:46 Labs: Abnormal Lab Results - Last 24 Hours (Table) 04/07/21 04/07/21 Range/Units 03:46 03:46 WBC 23.9 H (3.8-10.6) k/uL RBC 3.28 L (4.30-5.90) m/uL Hgb 11.1 L (13.0-17.5) gm/dL Hct 36.9 L (39.0-53.0) % MCV 112.5 H (80.0-100.0) fL MCHC 30.2 L (31.0-37.0) g/dL Neutrophils # 22.4 H (1.3-7.7) k/uL Lymphocytes # 0.6 L (1.0-4.8) k/uL Macrocytosis Marked A Sodium 150 H (137-145) mmol/L Chloride 125 H (98-107) mmol/L Carbon Dioxide 17 L (22-30) mmol/L BUN 43 H (9-20) mg/dL Creatinine 1.43 H (0.66-1.25) mg/dL Calcium 7.5 L (8.4-10.2) mg/dL Total Bilirubin 3.0 H (0.2-1.3) mg/dL AST 157 H (17-59) U/L Alkaline Phosphatase 475 H (38-126) U/L Total Protein 5.9 L (6.3-8.2) g/dL Albumin 2.6 L (3.5-5.0) g/dL Microbiology - Last 24 Hours (Table) 04/01/21 15:27 Blood Culture - Preliminary Blood No Growth after 120 hours 04/01/21 15:27 Blood Culture - Preliminary Blood No Growth after 120 hours Assessment and Plan Plan: #1. Altered mental status, multifactorial, related to acute EtOH withdrawal, and bilateral pneumonia, possibly related to aspiration interval worsening of the bilateral pulmonary infiltrates. There is also worsening of leukocytosis. The patient is currently on 100% nonrebreather facemask and the patient is also on 15 L high flow. IV antibiotics in the form of IV Zosyn. He is nothing by [facility] for now. He was dynamically stable on no pressors. Overall condition remains unchanged compared to yesterday. Mental status continues to be altered. Consider metabolic encephalopathy. Ammonia level is low. CAT scan of the present time of admission was negative. Patient remains quite debilitated at this point in time and a final decision regarding hospice care has not been made yet awaiting further direction from the family knowing if there is a nephew and there is a daughter. The nephew is more involved in his care compared to the daughter. #2 Alcoholism #3. Acute hypoxic respiratory failure secondary to possibility of aspiration related to pneumonia, chest x-ray findings are consistent with diffuse bilateral pulmonary infiltrates with upper lobe predominance and a left-sided pleural effusion #4. Coagulopathy suspect secondary to liver disease #5. Acute kidney injury related to ATN, on IV fluids, and is at 1.43 #6. Hypertension #7. Poor nutritional status related to chronic alcoholism #8. Chronic alcoholic liver disease with secondary ascites Plan: Maintain aspiration precautions DC steroids Chest x-ray was reviewed IV Fluids at a swish to D5 water at the rate of 100 mL an hour The Zosyn will be continued for now Discontinue Ativan Insert an NG tube for enteral feeding and nutritional support Earlier EEG showed background slowing suggestive of severe encephalopathy. This is likely metabolic encephalopathy. It's reasonable to repeat a CAT scan of the brain to make sure there is no interval development of any new New abnormalities explaining his altered mentation. His neurologic exam remains nonfocal. I think there is still plan to proceed with hospice care. We'll need a final confirmation from the family knowing that there are 2 decision-makers. There is a daughter was not much involved in his care and there is also nephew. I would ask the sheet metal worker supervisor to work on lesions guardianship and will make further decision accordingly.
[2021-04-07] MEDS: DEXTROSE 5% IN WATER 1,000 ML IV SCH ×2 (10:23→18:41)
[2021-04-07] MEDS: THIAMINE 100 MG/ML 2 ML VIAL IVP SCH (10:26)
[2021-04-07] MEDS: PANTOPRAZOLE 40 MG/10 ML VIAL IV SCH (10:26)
[2021-04-07] MEDS: ENOXAPARIN 40 MG/0.4 ML SYRINGE SQ SCH (10:27)
[2021-04-07 11:46] LABS: Glucose,Whole Blood 96 mg/dL (75-99)
--- NOTE | 2021-04-07 18:02 | P.PN ---
Subjective Progress Note Date: 04/07/21 Neri Kurtz is a 70 yo M with PMH of alcoholism, drinks a fifth of whiskey daily who presented to the ED with increasing weakness and falls at home. He states that he had not been feeling like himself, stumbling and after falling at home he decided to come to the ED. He denies nausea, vomiting or diarrhea. He does endorse cough. Pt denies sweats or tremors. On presentation pt hypertensive, labs with Hgb 12, Cr 1.8, lactic 4. AST elevated, trop 0.04, BNP 3300. CXR with L basilar infiltrate. 04/02/2021 yesterday afternoon discovered to be nearly obtunded,lethargic, minimally responsive, received IV push Lasix and transferred to ICU with suspicions of EtOH seizures. Maintained on seizure precautions with seizure pads. Neurology consult in place, recommendations pending. Continues on IV fluid resuscitation, Haldol and CIWA protocol,recent seawall score 17. Remains lethargic, minimally conversant. Yesterday reported he drinks a gallon of whiskey daily. Brain CT for cerebral atrophy with no acute intracranial abnormality, atrophy increased compared to prior exam. ABGs noted. Chest x-ray reporting increasing left lower lobe pneumonia. Maintaining O2 sats in the 90s on 4 L nasal cannula. Pro-calcitonin elevated, 0.31. Maintained on azithromycin, ceftriaxone. Afebrile, normal WBC. Abdominal x-ray reported limited exam, nonacute, no free air, multiple old left-sided rib fractures. Abdominal ultrasound reporting ascites. Troponin 0.039, 0.038, 0.031. Hemoglobin 9.9, platelets 263, INR 2.5. Potassium 3.2, magnesium 1.9, creatinine 1.5. Alk phos trending down. 04/03/2021 continues on CIWA protocol, lethargic, maintained on 10 L high flow nasal cannula maintaining O2 sats in the 90s, respiratory rate in the 20s. Afebrile, WBC increased ,16.9. Creatinine 1.41. Chest x-ray reporting new extensive airspace disease in the right upper and midlung zone, left basilar pl eural pressure multiple disease on with possible deep sulcus and pneumothorax. Maintained on Rocephin and Zithromax, nebulized bronchodilators, IV steroids. 04/06/2021 significantly lethargic, nearly obtunded does not open eyes to his name, withdraws from noxious stimuli only. Seizure and aspiration precautions maintained. Continues on nebulized bronchodilators, steroids. maintained on 15 L high flow nasal cannula/ nonrebreather, maintaining O2 sats in the 90s, tachypneic respiratory rate 20-27. Chest x-ray reporting continued bilateral airspace disease left greater than right with interval worsening on the left, suggesting possibility of underlying pneumothorax. Continues on CIWA protocol, Zosyn. Afebrile, WBC increased to 21.8, blood cultures negative. Hemoglobin 9.5, platelets 335. Sodium increased to 148, bicarb 17, BUN 32, creatinine up to 1.32. Hospice consult placed as per patient's nephew. Case management disclosed that the nephew is actually not family but very close friend, who states he has medical DPOA papers and is attempting to locate them. In the meanwhile patient has estranged children, whereabouts are unknown. 04/07/2021 condition unchanged, maintained on 100% nonrebreather, maintained on IV antibiotics. Afebrile, worsening leukocytosis, WBC up to 23.9. Sodium worsening up to 150, renal function worsening creatinine up to 1.43. Emergent guardianship in progress. Objective - Vital Signs Vital signs: Vital Signs Temp 98.9 F 04/07/21 16:00 Pulse 83 04/07/21 17:00 Resp 16 04/07/21 17:00 BP 156/90 04/07/21 17:00 Pulse Ox 96 04/07/21 17:00 Intake & Output 04/06/21 04/07/21 04/07/21 18:59 06:59 18:59 Intake Total 865 900 825 Output Total 435 365 260 Balance 430 535 565 Weight 95.5 kg 95.5 kg Intake: IV 865 900 825 Dextrose 5% in Water 1, 300 000 ml @ 100 mls/hr IV . Q10H [facility] Rx#:[id number] Sodium Chloride 0.9% 1, 40 000 ml @ 130 mls/hr IV . Q7H42M [facility] Rx#:[id number] Sodium Chloride 0.9% 1, 825 900 525 000 ml @ 75 mls/hr IV . [id number] [facility] Rx#:[id number] Output: Urine 435 365 260 Other: Voiding Method Indwelling Catheter Indwelling Catheter Indwelling Catheter - Exam General: Lethargic, nearly obtunded, moaning, respiratory effort increased,Vitals reviewed Eyes: PERRL, EOMI, conjunctiva normal HENT: normocephalic, mucus membranes dry Neck: supple, no JVD Lungs: Increased respiratory effort, tachypneic ,Lungs diminished with scattered rhonchi. Occasional Fine Expiratory wheezing. CV: tachycardic and rhythm, no murmur. Peripheral pulses 2+ Abdomen: soft,distended, no organomegaly, positive bowel sounds Skin: warm and dry. Neuro: Limited exam, unable to assess at this time. Unchanged: Withdraws to noxious stimuli only, unresponsive to verbal stimulation. - Labs CBC & Chem 7: 04/07/21 03:46 04/07/21 03:46 Labs: Abnormal Lab Results - Last 24 Hours (Table) 04/07/21 04/07/21 Range/Units 03:46 03:46 WBC 23.9 H (3.8-10.6) k/uL RBC 3.28 L (4.30-5.90) m/uL Hgb 11.1 L (13.0-17.5) gm/dL Hct 36.9 L (39.0-53.0) % MCV 112.5 H (80.0-100.0) fL MCHC 30.2 L (31.0-37.0) g/dL Neutrophils # 22.4 H (1.3-7.7) k/uL Lymphocytes # 0.6 L (1.0-4.8) k/uL Macrocytosis Marked A Sodium 150 H (137-145) mmol/L Chloride 125 H (98-107) mmol/L Carbon Dioxide 17 L (22-30) mmol/L BUN 43 H (9-20) mg/dL Creatinine 1.43 H (0.66-1.25) mg/dL Calcium 7.5 L (8.4-10.2) mg/dL Total Bilirubin 3.0 H (0.2-1.3) mg/dL AST 157 H (17-59) U/L Alkaline Phosphatase 475 H (38-126) U/L Total Protein 5.9 L (6.3-8.2) g/dL Albumin 2.6 L (3.5-5.0) g/dL Microbiology - Last 24 Hours (Table) 04/01/21 15:27 Blood Culture - Final Blood No Growth after 144 hours 04/01/21 15:27 Blood Culture - Final Blood No Growth after 144 hours Assessment and Plan Assessment: 1. Alcohol withdrawal with seizure in a patient with alcohol dependence. 2. Acute kidney injury, secondary to alcohol abuse, ATN. 3. Bilateral pneumonia possibly community-acquired, possibly aspiration, possible underlying pneumothorax 4. Acute hypoxic respiratory failure secondary to the above 5. Acute metabolic and toxic encephalopathy multifactorial, secondary to the above 6. Elevated AST 7. Elevated lactic 8. Ascites secondary to EtOH, Chronic liver disease. 9. No code, no CPR, no intubation 10. Poor nutritional status secondary to chronic alcoholism Plan: Continue on current medication regime ,monitoring and symptomatic treatment. Hospice consult in place pending Emergent guardianship. Attempting to contact daughter. Maintain supportive care ,ANTIBIOTICS, NEBULIZED BRONCHODILATORS, STEROIDS, CIWA protocol. Continue seizure and aspiration precautions.Prognosis poor given multiple complex medical issues. The impression and plan of care has been dictated as directed. : I performed a history and examination of this patient, discussed the same with the dictator. I agree with the dictator's note ,documented as a scribe. Any additional findings or plans will be noted.
[2021-04-07 18:31] LABS: Glucose,Whole Blood 123 mg/dL (75-99)
[2021-04-08 05:57] LABS: Glucose,Whole Blood 123 mg/dL (75-99)
[2021-04-08] MEDS: INSULIN ASPART (NovoLOG) 100 UNIT/ML VIAL SQ SCH ×4 (06:43→19:04)
[2021-04-08] MEDS: DEXTROSE 5% IN WATER 1,000 ML IV SCH ×3 (06:44→21:31)
[2021-04-08] MEDS: LABETALOL 5 MG/ML VIAL MDV IVP SCH ×6 (06:44→21:34)
[2021-04-08] MEDS: PIPERACILLIN-TAZOBACTAM 3.375 GM in SODIUM CHLORIDE 0.9% 100 ML IVPB SCH ×3 (06:44→21:30)
[2021-04-08] MEDS: POTASSIUM CHLORIDE 10 MEQ in WATER FOR INJECTION 1 100ML.BAG IVPB SCH ×2 (06:53→09:04)
[2021-04-08] MEDS: HALOPERIDOL LACTATE 5 MG/ML 1 ML VIAL IVP PRN ×2 (07:00→21:30)
[2021-04-08 07:09] LABS: Anisocytosis Slight; Basophils % (A) 0 %; Eosinophils % (A) 0 %; HCT 30.8 % (39.0-53.0); Hypochromasia Moderate; Lymphocytes % (A) 4 %; MCH 33.1 pg (25.0-35.0); MCHC 30.4 g/dL (31.0-37.0); MCV 108.9 fL (80.0-100.0); Mean Platelet Volume 8.6; Monocytes # (A) 0.4 k/uL (0-1.0); Monocytes % (A) 2 %; Neutrophils # (A) 22.6 k/uL (1.3-7.7); Neutrophils % (A) 94 %; Platelet Count 259 k/uL (150-450); RBC 2.82 m/uL (4.30-5.90); RDW 16.6 % (11.5-15.5); WBC 24.1 k/uL (3.8-10.6)
[2021-04-08 07:10] LABS: HGB 9.4 gm/dL (13.0-17.5); Macrocytosis Marked
[2021-04-08 07:18] LABS: Albumin 2.3 g/dL (3.5-5.0); Calcium 7.9 mg/dL (8.4-10.2); Magnesium 2.4 mg/dL (1.6-2.3); Phosphorus 3.7 mg/dL (2.5-4.5); Potassium 3.7 mmol/L (3.5-5.1); Total Bilirubin 3.2 mg/dL (0.2-1.3); Total Protein 5.2 g/dL (6.3-8.2)
[2021-04-08] MEDS: IPRATROPIUM-ALBUTEROL 3 ML NEB INHALATION SCH ×4 (07:32→18:51)
[2021-04-08] MEDS: ENOXAPARIN 40 MG/0.4 ML SYRINGE SQ SCH (09:03)
[2021-04-08] MEDS: THIAMINE 100 MG/ML 2 ML VIAL IVP SCH (09:03)
[2021-04-08] MEDS: PANTOPRAZOLE 40 MG/10 ML VIAL IV SCH (09:04)
--- NOTE | 2021-04-08 09:21 | P.PN ---
Subjective Progress Note Date: 04/08/21 This is a 70-year-old male patient with a history of hypertension and alcohol abuse. He did have an ongoing weakness and falls at home. He had been drinking daily and not eating much. He presented to the emergency room yesterday with shortness of breath and feelings of dehydration. X-ray of the left hip revealed no fracture. X-ray of the pelvis reveals no fracture. X-ray of the abdomen revealed nonacute abdomen. No free air. Computed tomography scan of the brain revealed cerebral atrophy. No acute intracranial abnormalities. Chest x-ray revealed left greater than right bibasilar pleural parenchymal disease. He was admitted to the regular medical floor. Last evening approximately 5:30 the patient was found on the floor lethargic and minimally responsive. He was only arousing to loud questions. ABGs, chest x-ray and labs were drawn. He was given IV Lasix and transferred to the intensive care unit for concerns regarding possible seizure. He is seen today in consultation. He is currently resting in bed. He is barely arousable. He is mumbling. He is maintaining O2 saturations in the 90s on 4 L/m per nasal cannula. He does have 0.9 normal saline at 130 mL by mouth per hour. Suspect alcohol withdrawal syndrome. He is on the CIWA protocol. Abdomen is distended. He is currently on ceftriaxone and azithromycin. Lovenox for DVT prophylaxis. Haldol for agitation. Thiamine. ABGs revealed a pO2 of 78, pCO2 22, pH 7.46 on 32% FiO2. White count 8.1. Hemoglobin 9.9. MCV 108.9. Platelets 263. Sodium 136. Potassium 3.2. Creatinine 1.58. ProBNP 3300. Troponin negative. Serum alcohol level was less than 10. INR 2.5. On 04/03/2021 patient seen in follow-up in the intensive care unit. He is short of breath, and audibly wheezy during today's exam, he is on 10 L of oxygen this morning, with a pulse ox of 93-95%, he is currently on 0.9 normal saline at a ra te of 1:30 ML per hour, he remains on CIWA protocol for acute alcohol withdrawal, he received a total of 6 mg of Ativan overnight in addition to haldol. he is confused, he is lethargic, he is not following commands. Lung sounds reveal equal air entry bilaterally, with diffuse wheezing throughout.rem ains on antibiotics in the combination of Zithromax and Rocephin, we added back pain treatments and IV steroids this morning. today's chest x-ray shows new extensive airspace disease in the right upper and mid lung zone, left basilar pleural parenchymal disease was again seen with possible deep sulcus and pneumothorax could not be definitely excluded. today's labs have been reviewed, and there has been an increase in patient's white blood cell count up to 16.9, hemoglobin is 11.3, sodium is 139, potassium is 4.5, chloride is 114, CO2 is 16, BUN of 27, creatinine is 1.41. IV fluids infusing at a rate of 1:30 ML per hour, patient has been nothing by mouth in view of his decreased level of cons ciousness, his had limited oral intake, his urine output has been in the order of 25-30 ML per hour. On 04/04/2021 patient seen in follow-up in the intensive care unit, he remains poorly responsive, breathing spontaneously, he is currently on 11 L per high flow nasal cannula, his pulse ox is 91-97%, he sounds less bronchospastic on today's exam, lung sounds reveal diffuse rhonchi, and some scattered wheezes. Febrile overnight, hemodynamically has been stable, he remains on 0.9 normal saline at a rate of 1:30 ML per hour, his been kept nothing by mouth in view of his decreased level of consciousness. His CODE STATUS is DO NOT RESUSCITATE, no new chest x-ray today, yesterday's chest x-ray showed new extensive airspace disease in the right upper and right midlung zone and left basilar pleural parenchymal disease. Possibility of aspiration pneumonia is suspected, his antibiotic was switched to Zosyn. His white blood cell count is improving on today's labs. He is not able to produce a sputum specimen for culture, his blood cultures have been negative thus far. He is less tachycardic, he is in sinus mechanism with a controlled rate, he was started on steroids and breathing treatments, DVT and GI prophylaxis. Remains on CIWA protocol, received 2 mg of Ativan this morning. Remains calm, not opening eyes to verbal or tactile stimulation. On 04/05/2021 patient seen in follow-up in the intensive care unit, this morning his mentation is still Altered, he is poorly responsive, breathing spontaneously, he is on 15 L of oxygen per high flow nasal cannula with O2 sat of 90-94%, patient has been afebrile, hemodynamically he is been stable, he is actually a bit hypertensive this morning, with a blood pressure of 170/91. He remains on 0.9 normal saline at 130 ML per hour, and he is significantly in positive fluid balance. He is lethargic, he has not been able to clear any se cretions, lung sounds reveal diffuse rhonchi, this chest x-ray shows diffuse bilateral opacities with interval worsening, left lower lobe collapse, small left pleural effusion slightly increased in size compared to prior. No pneumothorax. She remains on IV steroids, nebulized bronchodilators, and Zosyn. Remains on CIWA protocol. His CIWA scale is 8 or 9, he did receive 1 dose of Ativan early this morning. Hospice and palliative care consultation was placed after discussing chest condition with the patient's nephew Og, who agreed to hospice. For now patient continues on supportive treatment. 04/06/2021, the patient is being seen in follow-up. This is an alcoholic 70-year-old patient with known history of chronic alcoholic liver disease and chronic debility who presented with hypoxic respiratory failure, altered mental status and aspiration pneumonia. The patient is still doing poorly. He remains on 15 L of oxygen by nasal cannula and is also on 100% nonrebreather facemask.. He remains on IV Zosyn. Hemodynamically stable. Quite lethargic. He remains on CIWA protocol. The patient is receiving supportive care in the ICU in preparation for hospice care at which the patient's family agreed regarding his advanced and debilitated condition. This morning, the patient continues to move 1. Unresponsive. Chest x-rays showing diffuse but the pulmonary infiltrates, there is right upper lobe pulmonary infiltrate in addition to extensive infiltration of the left lung with questionable left apical pneumothorax. There is an average seen in the periphery of the left up per lobe which obviously raises the concern for pneumothorax. Meanwhile, the patient remains on IV Zosyn for now. Blood cultures of been negative. On the blood work today white cell count is 21 which is higher compared to yesterday and the sodium level is up to 148 with a serum bicarb of 17 and a creatinine of 1.3. IV fluids are in the form of 0.9 at the rate of 20 mL an hour. 04/07/2021, the patient remains extremely lethargic, nonresponsive, he continues to moan, may withdraw to deep painful stimulation and grimaces to deep painful stimulation. Cannot hold a conversation. Still 100% nonrebreather facemask. His ammonia level was low. CAT scan of the brain that was done on 04/01/2021 showed chronic atrophy. No acute abnormalities were seen on the CAT scan of the brain. Meanwhile, the patient continues to be altered neurologically. At the same time, the patient's is having an acute hypoxic respiratory failure with diffuse but the pulmonary infiltrates with upper lobe predominance and a developing left sided pleural effusion. The patient is suspected to have aspiration. The patient is on IV Zosyn. Possibility of an acute lung injury cannot be completely excluded. There was a questionable pneumothorax on yesterday'sx, not seen on today's chest x-ray. I further note, they patient's sodium level is up to 151 and his potassium level is at 5.1. The patient also has developed an acute kidney injury and creatinine is at 1.4 with a BUN of 43. Note that this creatinine is slightly improved compared to the initial creatinine, admission which was at 1.8. There may be a component of chronic kidney disease. His white cell count is currently at 23 which is slightly h igher compared to yesterday. As such, the patient remains encephalopathy worsening hypoxemic respiratory failure. He remains on IV Zosyn. He remains on IV fluid with normal saline at the rate of 75 mL an hour. He remains on IV Solu Medrol 60 mg every 6 hours. He is on DuoNeb nebulized treatments around the clock. He has not received any Ativan overnight. He remains on IV Protonix 10/09/2020, the patient continues to moan. He mumbles. He is speaking a few sentences. He can follow simple commands. He is extremely lethargic and weak. I with a slightly more alert compared to yesterday. He remains on a 1 cm facemask in addition to high flow oxygen. Chest x-ray remained unchanged with diffuse bilateral pulmonary infiltrates and a left-sided pleural effusion. He remains on IV Zosyn. His sodium level is elevated at 150s. The patient is on D5 water. Creatinine is up to 1.8. He is holding his own blood pressure. Hemodynamically stable. Urine output is in order of 100 mL an hour. Her activity. No other issues for now. He remains nothing by mouth. He remains on IV Protonix. Blood work shows a sodium of 150 with a potassium of 3.7. Serum bicarb is at 18. BNP is 3 with a creatinine of 1.8. LFTs remained abnormal. White cell count is at 24.1. Objective - Vital Signs Vital signs: Vital Signs Temp 98.2 F 04/08/21 08:00 Pulse 87 04/08/21 08:00 Resp 19 04/08/21 08:00 BP 149/91 04/08/21 08:00 Pulse Ox 87 L 04/08/21 08:00 Intake & Output 04/07/21 04/08/21 04/08/21 18:59 06:59 18:59 Intake Total 1025 1300 100 Output Total 320 535 40 Balance 705 765 60 Weight 95.5 kg 94.2 kg Intake: IV 1025 1300 100 Dextrose 5% in Water 1, 500 1200 100 000 ml @ 100 mls/hr IV . Q10H [facility] Rx#:[id number] Piperacillin-Tazobactam 3 100 .375 gm In Sodium Chloride 0.9% 100 ml @ 25 mls/hr IVPB Q8H [facility] Rx#: [id number] Sodium Chloride 0.9% 1, 525 000 ml @ 75 mls/hr IV . [id number] [facility] Rx#:[id number] Output: Urine 320 535 40 Other: Voiding Method Indwelling Catheter Indwelling Catheter - Exam GENERAL EXAM: poorly responsive, 70-year-old white male, 15 L of oxygen pulse ox of 92%, comfortable in mild degree of respiratory distress currently on 100% nonrebreather facemask. HEAD: Normocephalic/atraumatic. EYES: Normal reaction of pupils, equal size. Conjunctiva pink, sclera white. NOSE: Clear with pink turbinates. THROAT: No erythema or exudates. NECK: No masses, no JVD, no thyroid enlargement, no adenopathy. CHEST: No chest wall deformity. Symmetrical expansion. LUNGS: Equal air entry with diffuse rhonchi, minimal wheezes CVS: Regular rate and rhythm, normal S1 and S2, no gallops, no murmurs, no rubs ABDOMEN: Soft, nontender. No hepatosplenomegaly, normal bowel sounds, no guarding or rigidity. EXTREMITIES: No clubbing, no edema, no cyanosis, 2+ pulses and upper and lower extremities. MUSCULOSKELETAL: Muscle strength and tone normal. SPINE: No scoliosis or deformity SKIN: No rashes CENTRAL NERVOUS SYSTEM: The patient is following some simple commands. The patient is mumbling and he can say a few words and sentences. Slightly more awake compared to yesterday. Very much lethargic and debilitated encephalopathic still. No focal neurological deficit. He withdraws from painful stimuli with deep pain stimuli. No focal deficits, tone is normal in all 4 extremities. - Labs CBC & Chem 7: 04/08/21 03:00 04/08/21 03:00 Labs: Abnormal Lab Results - Last 24 Hours (Table) 04/07/21 04/07/21 04/08/21 Range/Units 18:30 23:56 03:00 WBC 24.1 H (3.8-10.6) k/uL RBC 2.82 L (4.30-5.90) m/uL Hgb 9.4 L D (13.0-17.5) gm/dL Hct 30.8 L (39.0-53.0) % MCV 108.9 H (80.0-100.0) fL MCHC 30.4 L (31.0-37.0) g/dL RDW 16.6 H (11.5-15.5) % Neutrophils # 22.6 H (1.3-7.7) k/uL Macrocytosis Marked A Sodium (137-145) mmol/L Chloride (98-107) mmol/L Carbon Dioxide (22-30) mmol/L BUN (9-20) mg/dL Creatinine (0.66-1.25) mg/dL Glucose (74-99) mg/dL POC Glucose (mg/dL) 123 H 123 H (75-99) mg/dL Calcium (8.4-10.2) mg/dL Magnesium (1.6-2.3) mg/dL Total Bilirubin (0.2-1.3) mg/dL AST (17-59) U/L Alkaline Phosphatase (38-126) U/L Total Protein (6.3-8.2) g/dL Albumin (3.5-5.0) g/dL 04/08/21 Range/Units 03:00 WBC (3.8-10.6) k/uL RBC (4.30-5.90) m/uL Hgb (13.0-17.5) gm/dL Hct (39.0-53.0) % MCV (80.0-100.0) fL MCHC (31.0-37.0) g/dL RDW (11.5-15.5) % Neutrophils # (1.3-7.7) k/uL Macrocytosis Sodium 150 H (137-145) mmol/L Chloride 125 H (98-107) mmol/L Carbon Dioxide 18 L (22-30) mmol/L BUN 53 H (9-20) mg/dL Creatinine 1.83 H (0.66-1.25) mg/dL Glucose 123 H (74-99) mg/dL POC Glucose (mg/dL) (75-99) mg/dL Calcium 7.9 L (8.4-10.2) mg/dL Magnesium 2.4 H (1.6-2.3) mg/dL Total Bilirubin 3.2 H (0.2-1.3) mg/dL AST 130 H (17-59) U/L Alkaline Phosphatase 452 H (38-126) U/L Total Protein 5.2 L (6.3-8.2) g/dL Albumin 2.3 L (3.5-5.0) g/dL Microbiology - Last 24 Hours (Table) 04/01/21 15:27 Blood Culture - Final Blood No Growth after 144 hours 04/01/21 15:27 Blood Culture - Final Blood No Growth after 144 hours Assessment and Plan Plan: #1. Altered mental status, multifactorial, related to acute EtOH withdrawal, and bilateral pneumonia, possibly related to aspiration interval worsening of the bilateral pulmonary infiltrates. There is also worsening of leukocytosis. The patient is currently on 100% nonrebreather facemask and the patient is also on 15 L high flow. IV antibiotics in the form of IV Zosyn. He is nothing by mouth for now. He was dynamically stable on no pressors. Overall condition remains unchanged compared to yesterday. Mental status continues to be altered. Consider metabolic encephalopathy. Ammonia level is low. CAT scan of the present time of admission was negative. She is essentially unchanged on today's evaluation. On 04/08/2021, probably slightly more awake and following a few commands. Nevertheless he remains quite lethargic, still encephalopathic, not fully recovered. Remains on a beta facemasks. #2 Alcoholism #3. Acute hypoxic respiratory failure secondary to possibility of aspiration related to pneumonia, chest x-ray findings are consistent with diffuse bilateral pulmonary infiltrates with upper lobe predominance and a left-sided pleural effusion associated findings are essentially unchanged probably some worsening of the left-sided pleural effusion. #4. Coagulopathy suspect secondary to liver disease #5. Acute kidney injury related to ATN, on IV fluids, and is at 1.8 #6. Hypertension #7. Poor nutritional status related to chronic alcoholism #8. Chronic alcoholic liver disease with secondary ascites \ #9 hyperchloremic hypernatremia, sodium level is up to 150 Plan: Maintain aspiration precautions Chest x-ray was reviewed Continue IV Fluids at a swish to D5 water at the rate of 150 mL an hour Zosyn will be continued for now No Ativan Earlier EEG showed background slowing suggestive of severe encephalopathy. This is likely metabolic encephalopathy. It's reasonable to repeat a CAT scan of the brain to make sure there is no interval development of any new New abnormalities explaining his altered mentation. His neurologic exam remains nonfocal. Several family members arrived to the hospital today to make final decisions regarding his ongoing care and goals of treatment. Discussion was done with the primary care, neurology and the family. Meanwhile we'll continue supportive care. Keep him 100% nonrebreather facemask. Him on D5 water and increased the rate of 150. Monitor electrolytes. We'll continue to follow.
--- NOTE | 2021-04-08 10:23 | XR ---
EXAMINATION TYPE: XR chest 1V portable DATE OF EXAM: 04/08/2021 COMPARISON: 04/07/2021 INDICATION: NRB mask difficulty breathing TECHNIQUE: Single frontal view of the chest is obtained Semiupright position FINDINGS: The heart size is normal. The pulmonary vasculature is normal. Diffuse increased lung markings are present bilaterally. This appears to be worsening on left. Some p leural effusion may be increasing on the left. IMPRESSION: 1. Worsening bilateral lung infiltrates with increasing moderate left pleural effusion.
[2021-04-08 11:39] LABS: Glucose,Whole Blood 120 mg/dL (75-99)
--- NOTE | 2021-04-08 13:44 | P.PN ---
Subjective Progress Note Date: 04/08/21 Neri Kurtz is a 70 yo M with PMH of alcoholism, drinks a fifth of whiskey daily who presented to the ED with increasing weakness and falls at home. He states that he had not been feeling like himself, stumbling and after falling at home he decided to come to the ED. He denies nausea, vomiting or diarrhea. He does endorse cough. Pt denies sweats or tremors. On presentation pt hypertensive, labs with Hgb 12, Cr 1.8, lactic 4. AST elevated, trop 0.04, BNP 3300. CXR with L basilar infiltrate. 04/02/2021 yesterday afternoon discovered to be nearly obtunded,lethargic, minimally responsive, received IV push Lasix and transferred to ICU with suspicions of EtOH seizures. Maintained on seizure precautions with seizure pads. Neurology consult in place, recommendations pending. Continues on IV fluid resuscitation, Haldol and CIWA protocol,recent seawall score 17. Remains lethargic, minimally conversant. Yesterday reported he drinks a gallon of whiskey daily. Brain CT for cerebral atrophy with no acute intracranial abnormality, atrophy increased compared to prior exam. ABGs noted. Chest x-ray reporting increasing left lower lobe pneumonia. Maintaining O2 sats in the 90s on 4 L nasal cannula. Pro-calcitonin elevated, 0.31. Maintained on azithromycin, ceftriaxone. Afebrile, normal WBC. Abdominal x-ray reported limited exam, nonacute, no free air, multiple old left-sided rib fractures. Abdominal ultrasound reporting ascites. Troponin 0.039, 0.038, 0.031. Hemoglobin 9.9, platelets 263, INR 2.5. Potassium 3.2, magnesium 1.9, creatinine 1.5. Alk phos trending down. 04/03/2021 continues on CIWA protocol, lethargic, maintained on 10 L high flow nasal cannula maintaining O2 sats in the 90s, respiratory rate in the 20s. Afebrile, WBC increased ,16.9. Creatinine 1.41. Chest x-ray reporting new extensive airspace disease in the right upper and midlung zone, left basilar pl eural pressure multiple disease on with possible deep sulcus and pneumothorax. Maintained on Rocephin and Zithromax, nebulized bronchodilators, IV steroids. 04/06/2021 significantly lethargic, nearly obtunded does not open eyes to his name, withdraws from noxious stimuli only. Seizure and aspiration precautions maintained. Continues on nebulized bronchodilators, steroids. maintained on 15 L high flow nasal cannula/ nonrebreather, maintaining O2 sats in the 90s, tachypneic respiratory rate 20-27. Chest x-ray reporting continued bilateral airspace disease left greater than right with interval worsening on the left, suggesting possibility of underlying pneumothorax. Continues on CIWA protocol, Zosyn. Afebrile, WBC increased to 21.8, blood cultures negative. Hemoglobin 9.5, platelets 335. Sodium increased to 148, bicarb 17, BUN 32, creatinine up to 1.32. Hospice consult placed as per patient's nephew. Case management disclosed that the nephew is actually not family but very close friend, who states he has medical DPOA papers and is attempting to locate them. In the meanwhile patient has estranged children, whereabouts are unknown. 04/07/2021 condition unchanged, maintained on 100% nonrebreather, maintained on IV antibiotics. Afebrile, worsening leukocytosis, WBC up to 23.9. Sodium worsening up to 150, renal function worsening creatinine up to 1.43. Emergent guardianship in progress. 03/31/2021 maintained on Zosyn, IV fluid hydration with D5W. Sodium 150. con tinues with alcoholic delirium. Ativan discontinued, patient restless, moaning, mumbling. Maintain him on percent nonrebreather/high flow nasal cannula maintaining O2 sats in the 90s. Chest x-ray reporting worsening bilateral lung infiltrates with increasing moderate left pleural effusion. Renal function worsening, creatinine up to 1.83. Bicarb 18. LFTs elevated/T bili up to 3.2. Afebrile, WBC increased ,24.1. Objective - Vital Signs Vital signs: Vital Signs Temp 98.2 F 04/08/21 12:00 Pulse 84 04/08/21 12:00 Resp 14 04/08/21 12:00 BP 131/79 04/08/21 12:00 Pulse Ox 94 L 04/08/21 12:00 Intake & Output 04/07/21 04/08/21 04/08/21 18:59 06:59 18:59 Intake Total 1025 1300 1050 Output Total 320 535 270 Balance 705 765 780 Weight 95.5 kg 94.2 kg Intake: IV 1025 1300 950 Dextrose 5% in Water 1, 500 1200 850 000 ml @ 100 mls/hr IV . Q10H [facility] Rx#:[id number] Piperacillin-Tazobactam 3 100 100 .375 gm In Sodium Chloride 0.9% 100 ml @ 25 mls/hr IVPB Q8H [facility] Rx#: [id number] Sodium Chloride 0.9% 1, 525 000 ml @ 75 mls/hr IV . [id number] [facility] Rx#:[id number] Intake, IV Titration 100 Amount Potassium Chloride 10 meq 100 In Water For Injection 1 100ml.bag @ 100 mls/hr IVPB Q1H [facility] Rx#: [id number] Output: Urine 320 535 270 Other: Voiding Method Indwelling Catheter Indwelling Catheter Indwelling Catheter - Exam General: Lethargic, restless, moaning, Vitals reviewed Eyes: PERRL, EOMI, conjunctiva normal HENT: normocephalic, mucus membranes dry Neck: supple, no JVD Lungs: Increased respiratory effort, tachypneic ,Lungs diminished with scattered rhonchi,occasional Fine Expiratory wheezing. CV: Regular rate and rhythm, no murmur. Peripheral pulses 2+ Abdomen: soft,distended, no organomegaly, positive bowel sounds Skin: warm and dry, no rashes Neuro: Limited exam, unable to assess at this time, EtOH delirium. - Labs CBC & Chem 7: 04/08/21 03:00 04/08/21 03:00 Labs: Abnormal Lab Results - Last 24 Hours (Table) 04/07/21 04/07/21 04/08/21 Range/Units 18:30 23:56 03:00 WBC 24.1 H (3.8-10.6) k/uL RBC 2.82 L (4.30-5.90) m/uL Hgb 9.4 L D (13.0-17.5) gm/dL Hct 30.8 L (39.0-53.0) % MCV 108.9 H (80.0-100.0) fL MCHC 30.4 L (31.0-37.0) g/dL RDW 16.6 H (11.5-15.5) % Neutrophils # 22.6 H (1.3-7.7) k/uL Macrocytosis Marked A Sodium (137-145) mmol/L Chloride (98-107) mmol/L Carbon Dioxide (22-30) mmol/L BUN (9-20) mg/dL Creatinine (0.66-1.25) mg/dL Glucose (74-99) mg/dL POC Glucose (mg/dL) 123 H 123 H (75-99) mg/dL Calcium (8.4-10.2) mg/dL Magnesium (1.6-2.3) mg/dL Total Bilirubin (0.2-1.3) mg/dL AST (17-59) U/L Alkaline Phosphatase (38-126) U/L Total Protein (6.3-8.2) g/dL Albumin (3.5-5.0) g/dL 04/08/21 04/08/21 Range/Units 03:00 11:37 WBC (3.8-10.6) k/uL RBC (4.30-5.90) m/uL Hgb (13.0-17.5) gm/dL Hct (39.0-53.0) % MCV (80.0-100.0) fL MCHC (31.0-37.0) g/dL RDW (11.5-15.5) % Neutrophils # (1.3-7.7) k/uL Macrocytosis Sodium 150 H (137-145) mmol/L Chloride 125 H (98-107) mmol/L Carbon Dioxide 18 L (22-30) mmol/L BUN 53 H (9-20) mg/dL Creatinine 1.83 H (0.66-1.25) mg/dL Glucose 123 H (74-99) mg/dL POC Glucose (mg/dL) 120 H (75-99) mg/dL Calcium 7.9 L (8.4-10.2) mg/dL Magnesium 2.4 H (1.6-2.3) mg/dL Total Bilirubin 3.2 H (0.2-1.3) mg/dL AST 130 H (17-59) U/L Alkaline Phosphatase 452 H (38-126) U/L Total Protein 5.2 L (6.3-8.2) g/dL Albumin 2.3 L (3.5-5.0) g/dL Microbiology - Last 24 Hours (Table) 04/01/21 15:27 Blood Culture - Final Blood No Growth after 144 hours 04/01/21 15:27 Blood Culture - Final Blood No Growth after 144 hours Assessment and Plan Assessment: 1. Alcohol withdrawal with seizure in a patient with alcohol dependence. 2. Acute kidney injury, secondary to alcohol abuse, ATN. 3. Acute Bilateral pneumonia possibly community-acquired, possibly aspiration, possible underlying pneumothorax. Chest x-ray reporting worsening. 4. Acute hypoxic respiratory failure secondary to the above 5. Acute metabolic and toxic encephalopathy multifactorial, secondary to the above 6. Elevated AST 7. Elevated lactic 8. Ascites secondary to EtOH, Chronic liver disease. 9. No code, no CPR, no intubation 10. Poor nutritional status secondary to chronic alcoholism 11. Chronic alcoholic liver disease 12. Hyperchloremic Hypernatremia Plan: Continue on current medication regime ,monitoring and symptomatic treatment. Repeat head CT ordered. D5W IV fluids increased.PCP, Dr. Pro met with the family consisting of 2 sons, daughters in laws, updated,care options discussed.questions and concerns addressed.support given.Family met with hospice and currently discussing . Maintain supportive care ,ANTIBIOTICS, NEBULIZED BRONCHODILATORS.Seizure and aspiration precautions maintained.Prognosis guarded given multiple complex medical issues. The impression and plan of care has been dictated as directed. : I performed a history and examination of this patient, discussed the same with the dictator. I agree with the dictator's note ,documented as a scribe. Any additional findings or plans will be noted.
[2021-04-08 22:17] LABS: Glucose,Whole Blood 110 mg/dL (75-99)
[2021-04-08] MEDS ORDERED: DEXMEDETOMIDINE/0.9% NACL(PMX) 400 MCG in EMPTY BAG 1 BAG IV SCH (22:30)
[2021-04-08] MEDS ORDERED: LABETALOL 5 MG/ML VIAL MDV ONE ×2 (23:59)
[2021-04-08] MEDS ORDERED: PIPERACILLIN-TAZOBACTAM 3.375 GM VIAL ONE (23:59)
[2021-04-08] MEDS ORDERED: SODIUM CHLORIDE 0.9% 100 ML BAG ONE (23:59)
[2021-04-09 00:58] LABS: Glucose,Whole Blood 125 mg/dL (75-99)
[2021-04-09] MEDS: INSULIN ASPART (NovoLOG) 100 UNIT/ML VIAL SQ SCH ×4 (00:59→18:38)
[2021-04-09] MEDS: LABETALOL 5 MG/ML VIAL MDV IVP SCH ×6 (01:03→20:49)
[2021-04-09] MEDS: PIPERACILLIN-TAZOBACTAM 3.375 GM in SODIUM CHLORIDE 0.9% 100 ML IVPB SCH ×3 (03:39→19:09)
[2021-04-09 04:53] LABS: Anisocytosis Slight; HCT 27.4 % (39.0-53.0); HGB 8.2 gm/dL (13.0-17.5); Hypochromasia Marked; MCH 33.9 pg (25.0-35.0); MCHC 30.1 g/dL (31.0-37.0); MCV 112.5 fL (80.0-100.0); Macrocytosis Marked; Mean Platelet Volume 9.6; Platelet Count 167 k/uL (150-450); RBC 2.43 m/uL (4.30-5.90); RDW 17.6 % (11.5-15.5); WBC 13.4 k/uL (3.8-10.6)
[2021-04-09 05:02] LABS: Albumin 1.9 g/dL (3.5-5.0); Calcium 7.7 mg/dL (8.4-10.2); Potassium 3.7 mmol/L (3.5-5.1); Total Bilirubin 2.8 mg/dL (0.2-1.3); Total Protein 4.4 g/dL (6.3-8.2)
[2021-04-09 06:08] LABS: Glucose,Whole Blood 149 mg/dL (75-99)
[2021-04-09] MEDS ORDERED: Potassium Replacement Protocol 1 EACH MISC MISCELLANE PRN (06:13)
[2021-04-09] MEDS: POTASSIUM CHLORIDE 10 MEQ in WATER FOR INJECTION 1 100ML.BAG IVPB SCH ×2 (06:52→11:24)
--- NOTE | 2021-04-09 07:25 | XR ---
EXAMINATION TYPE: XR chest 1V portable DATE OF EXAM: 04/09/2021 Comparison: 03/31/2021 Clinical History: 70-year-old male ICU follow-up, nrb mask Findings: Heart borderline in size. Diffuse interstitial and perihilar opacities persist. Left greater than rig ht bibasilar opacities persist with continued moderate left effusion. Some increasing opacity at the right base. Old healed fracture deformities of the clavicular shaft. Old right upper rib fracture def ormities. Impression: Diffuse interstitial and perihilar changes as well as continued moderate left pleural effusion with a djacent atelectasis and/or consolidation all relatively similar. However, there is increasing opacity at the right base. Consider sequela of CHF with patchy pulmonary edema versus multifocal pneumonia.
[2021-04-09] MEDS: IPRATROPIUM-ALBUTEROL 3 ML NEB INHALATION SCH ×4 (07:58→20:27)
[2021-04-09] MEDS ORDERED: FUROSEMIDE 10 MG/ML 2 ML VIAL IV STA (09:55)
--- NOTE | 2021-04-09 09:56 | P.PN ---
Subjective Progress Note Date: 04/09/21 This is a 70-year-old male patient with a history of hypertension and alcohol abuse. He did have an ongoing weakness and falls at home. He had been drinking daily and not eating much. He presented to the emergency room yesterday with shortness of breath and feelings of dehydration. X-ray of the left hip revealed no fracture. X-ray of the pelvis reveals no fracture. X-ray of the abdomen revealed nonacute abdomen. No free air. Computed tomography scan of the brain revealed cerebral atrophy. No acute intracranial abnormalities. Chest x-ray revealed left greater than right bibasilar pleural parenchymal disease. He was admitted to the regular medical floor. Last evening approximately 5:30 the patient was found on the floor lethargic and minimally responsive. He was only arousing to loud questions. ABGs, chest x-ray and labs were drawn. He was given IV Lasix and transferred to the intensive care unit for concerns regarding possible seizure. He is seen today in consultation. He is currently resting in bed. He is barely arousable. He is mumbling. He is maintaining O2 saturations in the 90s on 4 L/m per nasal cannula. He does have 0.9 normal saline at 130 mL by mouth per hour. Suspect alcohol withdrawal syndrome. He is on the CIWA protocol. Abdomen is distended. He is currently on ceftriaxone and azithromycin. Lovenox for DVT prophylaxis. Haldol for agitation. Thiamine. ABGs revealed a pO2 of 78, pCO2 22, pH 7.46 on 32% FiO2. White count 8.1. Hemoglobin 9.9. MCV 108.9. Platelets 263. Sodium 136. Potassium 3.2. Creatinine 1.58. ProBNP 3300. Troponin negative. Serum alcohol level was less than 10. INR 2.5. On 04/03/2021 patient seen in follow-up in the intensive care unit. He is short of breath, and audibly wheezy during today's exam, he is on 10 L of oxygen this morning, with a pulse ox of 93-95%, he is currently on 0.9 normal saline at a ra te of 1:30 ML per hour, he remains on CIWA protocol for acute alcohol withdrawal, he received a total of 6 mg of Ativan overnight in addition to haldol. he is confused, he is lethargic, he is not following commands. Lung sounds reveal equal air entry bilaterally, with diffuse wheezing throughout.rem ains on antibiotics in the combination of Zithromax and Rocephin, we added back pain treatments and IV steroids this morning. today's chest x-ray shows new extensive airspace disease in the right upper and mid lung zone, left basilar pleural parenchymal disease was again seen with possible deep sulcus and pneumothorax could not be definitely excluded. today's labs have been reviewed, and there has been an increase in patient's white blood cell count up to 16.9, hemoglobin is 11.3, sodium is 139, potassium is 4.5, chloride is 114, CO2 is 16, BUN of 27, creatinine is 1.41. IV fluids infusing at a rate of 1:30 ML per hour, patient has been nothing by mouth in view of his decreased level of cons ciousness, his had limited oral intake, his urine output has been in the order of 25-30 ML per hour. On 04/04/2021 patient seen in follow-up in the intensive care unit, he remains poorly responsive, breathing spontaneously, he is currently on 11 L per high flow nasal cannula, his pulse ox is 91-97%, he sounds less bronchospastic on today's exam, lung sounds reveal diffuse rhonchi, and some scattered wheezes. Febrile overnight, hemodynamically has been stable, he remains on 0.9 normal saline at a rate of 1:30 ML per hour, his been kept nothing by mouth in view of his decreased level of consciousness. His CODE STATUS is DO NOT RESUSCITATE, no new chest x-ray today, yesterday's chest x-ray showed new extensive airspace disease in the right upper and right midlung zone and left basilar pleural parenchymal disease. Possibility of aspiration pneumonia is suspected, his antibiotic was switched to Zosyn. His white blood cell count is improving on today's labs. He is not able to produce a sputum specimen for culture, his blood cultures have been negative thus far. He is less tachycardic, he is in sinus mechanism with a controlled rate, he was started on steroids and breathing treatments, DVT and GI prophylaxis. Remains on CIWA protocol, received 2 mg of Ativan this morning. Remains calm, not opening eyes to verbal or tactile stimulation. On 04/05/2021 patient seen in follow-up in the intensive care unit, this morning his mentation is still Altered, he is poorly responsive, breathing spontaneously, he is on 15 L of oxygen per high flow nasal cannula with O2 sat of 90-94%, patient has been afebrile, hemodynamically he is been stable, he is actually a bit hypertensive this morning, with a blood pressure of 170/91. He remains on 0.9 normal saline at 130 ML per hour, and he is significantly in positive fluid balance. He is lethargic, he has not been able to clear any se cretions, lung sounds reveal diffuse rhonchi, this chest x-ray shows diffuse bilateral opacities with interval worsening, left lower lobe collapse, small left pleural effusion slightly increased in size compared to prior. No pneumothorax. She remains on IV steroids, nebulized bronchodilators, and Zosyn. Remains on CIWA protocol. His CIWA scale is 8 or 9, he did receive 1 dose of Ativan early this morning. Hospice and palliative care consultation was placed after discussing chest condition with the patient's nephew Og, who agreed to hospice. For now patient continues on supportive treatment. 04/06/2021, the patient is being seen in follow-up. This is an alcoholic 70-year-old patient with known history of chronic alcoholic liver disease and chronic debility who presented with hypoxic respiratory failure, altered mental status and aspiration pneumonia. The patient is still doing poorly. He remains on 15 L of oxygen by nasal cannula and is also on 100% nonrebreather facemask.. He remains on IV Zosyn. Hemodynamically stable. Quite lethargic. He remains on CIWA protocol. The patient is receiving supportive care in the ICU in preparation for hospice care at which the patient's family agreed regarding his advanced and debilitated condition. This morning, the patient continues to move 1. Unresponsive. Chest x-rays showing diffuse but the pulmonary infiltrates, there is right upper lobe pulmonary infiltrate in addition to extensive infiltration of the left lung with questionable left apical pneumothorax. There is an average seen in the periphery of the left up per lobe which obviously raises the concern for pneumothorax. Meanwhile, the patient remains on IV Zosyn for now. Blood cultures of been negative. On the blood work today white cell count is 21 which is higher compared to yesterday and the sodium level is up to 148 with a serum bicarb of 17 and a creatinine of 1.3. IV fluids are in the form of 0.9 at the rate of 20 mL an hour. 04/07/2021, the patient remains extremely lethargic, nonresponsive, he continues to moan, may withdraw to deep painful stimulation and grimaces to deep painful stimulation. Cannot hold a conversation. Still 100% nonrebreather facemask. His ammonia level was low. CAT scan of the brain that was done on 04/01/2021 showed chronic atrophy. No acute abnormalities were seen on the CAT scan of the brain. Meanwhile, the patient continues to be altered neurologically. At the same time, the patient's is having an acute hypoxic respiratory failure with diffuse but the pulmonary infiltrates with upper lobe predominance and a developing left sided pleural effusion. The patient is suspected to have aspiration. The patient is on IV Zosyn. Possibility of an acute lung injury cannot be completely excluded. There was a questionable pneumothorax on yesterday'sx, not seen on today's chest x-ray. I further note, they patient's sodium level is up to 151 and his potassium level is at 5.1. The patient also has developed an acute kidney injury and creatinine is at 1.4 with a BUN of 43. Note that this creatinine is slightly improved compared to the initial creatinine, admission which was at 1.8. There may be a component of chronic kidney disease. His white cell count is currently at 23 which is slightly h igher compared to yesterday. As such, the patient remains encephalopathy worsening hypoxemic respiratory failure. He remains on IV Zosyn. He remains on IV fluid with normal saline at the rate of 75 mL an hour. He remains on IV Solu Medrol 60 mg every 6 hours. He is on DuoNeb nebulized treatments around the clock. He has not received any Ativan overnight. He remains on IV Protonix 04/08/2021, the patient continues to moan. He mumbles. He is speaking a few sentences. He can follow simple commands. He is extremely lethargic and weak. I with a slightly more alert compared to yesterday. He remains on a 1 cm facemask in addition to high flow oxygen. Chest x-ray remained unchanged with diffuse bilateral pulmonary infiltrates and a left-sided pleural effusion. He remains on IV Zosyn. His sodium level is elevated at 150s. The patient is on D5 water. Creatinine is up to 1.8. He is holding his own blood pressure. Hemodynamically stable. Urine output is in order of 100 mL an hour. Her activity. No other issues for now. He remains nothing by mouth. He remains on IV Protonix. Blood work shows a sodium of 150 with a potassium of 3.7. Serum bicarb is at 18. BNP is 3 with a creatinine of 1.8. LFTs remained abnormal. White cell count is at 24.1. 04/09/2021, I'm seeing this patient for a follow-up. I would say he is doing slow progress in terms of his mentation. He remains extremely lethargic, at times agitated, sees most of the time of mumbles and moans constantly. Nevertheless, when asked simple questions such as moving his toes or hands, he would comply. He has a very weak grasp using his hands. Unable to raise his arms against gravity. He is trying to speak. We can sometimes understand few words. For the most part, his speech is still garbled. No seizure activity. No neck stiffness. No fever. No aspiration. He remains nothing by mouth. He remains on D5 water at the rate of 150 mL an hour and his sodium level is down to 143. His BUN is a 53 with a creatinine of 1.9 and this is essentially stable compared to yesterday. His urine output is in order of 30 mL an hour. His white cell count is down to 13.4. As for his follow-up chest x-ray from today, there are some improvement in the volume status and infiltration. There is still diffuse interstitial and perihilar infiltrate and a left-sided pleural effusion. There is also increased opacity in the right lung base consistent with pneumonia. The overall picture is consistent with pneumonia with possibly component of CHF. His ammonia level has been low. Overnight, he became more agitated. He received a dose of Haldol around 9 PM. Subsequently because of increased agitation, he was briefly placed on Precedex which made him hypotensive and bradycardic and this was discontinued. Since then, the patient has not required any further sedatives. Earlier this morning, I took him off the nonrebreather facemask. He is on high flow oxygen at 15 L and his pulse ox is currently ranging at around 88-89%. Most recent BP is 80/53. No significant tachycardia. Cardiac rhythm is sinus. No tachypnea. No symptoms to swelling in lower extremities. Objective - Vital Signs Vital signs: Vital Signs Temp 98.2 F 04/09/21 04:00 Pulse 62 04/09/21 08:10 Resp 18 04/09/21 08:00 BP 83/67 04/09/21 08:00 Pulse Ox 96 04/09/21 08:00 Intake & Output 04/08/21 04/09/21 04/09/21 18:59 06:59 18:59 Intake Total 1950 1862.377 Output Total 450 520 Balance 1500 1342.377 Weight 94.5 kg Intake: IV 1850 1800 Dextrose 5% in Water 1, 1750 1800 000 ml @ 100 mls/hr IV . Q10H [facility] Rx#:[id number] Piperacillin-Tazobactam 3 100 .375 gm In Sodium Chloride 0.9% 100 ml @ 25 mls/hr IVPB Q8H [facility] Rx#: [id number] Intake, IV Titration 100 62.377 Amount Dexmedetomidine/0.9% NaCl 62.377 (Pmx) 400 mcg In Empty Bag 1 bag @ Titrate IV . Q0M [facility] Rx#:[id number] Potassium Chloride 10 meq 100 In Water For Injection 1 100ml.bag @ 100 mls/hr IVPB Q1H [facility] Rx#: [id number] Output: Urine 450 520 Other: Voiding Method Indwelling Catheter Indwelling Catheter - Exam GENERAL EXAM: poorly responsive, 70-year-old white male, 15 L of oxygen pulse ox of 92%, comfortable in mild degree of respiratory distress currently on 100% nonrebreather facemask. HEAD: Normocephalic/atraumatic. EYES: Normal reaction of pupils, equal size. Conjunctiva pink, sclera white. NOSE: Clear with pink turbinates. THROAT: No erythema or exudates. NECK: No masses, no JVD, no thyroid enlargement, no adenopathy. CHEST: No chest wall deformity. Symmetrical expansion. LUNGS: Equal air entry with diffuse rhonchi, minimal wheezes CVS: Regular rate and rhythm, normal S1 and S2, no gallops, no murmurs, no rubs ABDOMEN: Soft, nontender. No hepatosplenomegaly, normal bowel sounds, no guarding or rigidity. EXTREMITIES: No clubbing, no edema, no cyanosis, 2+ pulses and upper and lower extremities. MUSCULOSKELETAL: Muscle strength and tone normal. SPINE: No scoliosis or deformity SKIN: No rashes CENTRAL NERVOUS SYSTEM: The patient is following some simple commands. The patient is mumbling and he can say a few words and sentences. Slightly more awake compared to yesterday. Llethargic and debilitated, encephalopathic still. No focal neurological deficit. He withdraws from painful stimuli with deep pain stimuli. No focal deficits, tone is normal in all 4 extremities. - Labs CBC & Chem 7: 04/09/21 04:21 04/09/21 04:21 Labs: Abnormal Lab Results - Last 24 Hours (Table) 04/08/21 04/08/21 04/09/21 Range/Units 11:37 22:17 00:56 WBC (3.8-10.6) k/uL RBC (4.30-5.90) m/uL Hgb (13.0-17.5) gm/dL Hct (39.0-53.0) % MCV (80.0-100.0) fL MCHC (31.0-37.0) g/dL RDW (11.5-15.5) % Macrocytosis Chloride (98-107) mmol/L Carbon Dioxide (22-30) mmol/L BUN (9-20) mg/dL Creatinine (0.66-1.25) mg/dL Glucose (74-99) mg/dL POC Glucose (mg/dL) 120 H 110 H 125 H (75-99) mg/dL Calcium (8.4-10.2) mg/dL Total Bilirubin (0.2-1.3) mg/dL AST (17-59) U/L Alkaline Phosphatase (38-126) U/L Total Protein (6.3-8.2) g/dL Albumin (3.5-5.0) g/dL 04/09/21 04/09/21 04/09/21 Range/Units 04:21 04:21 06:06 WBC 13.4 H (3.8-10.6) k/uL RBC 2.43 L (4.30-5.90) m/uL Hgb 8.2 L (13.0-17.5) gm/dL Hct 27.4 L (39.0-53.0) % MCV 112.5 H (80.0-100.0) fL MCHC 30.1 L (31.0-37.0) g/dL RDW 17.6 H (11.5-15.5) % Macrocytosis Marked A Chloride 121 H (98-107) mmol/L Carbon Dioxide 19 L (22-30) mmol/L BUN 53 H (9-20) mg/dL Creatinine 1.96 H (0.66-1.25) mg/dL Glucose 134 H (74-99) mg/dL POC Glucose (mg/dL) 149 H (75-99) mg/dL Calcium 7.7 L (8.4-10.2) mg/dL Total Bilirubin 2.8 H (0.2-1.3) mg/dL AST 100 H (17-59) U/L Alkaline Phosphatase 373 H (38-126) U/L Total Protein 4.4 L (6.3-8.2) g/dL Albumin 1.9 L (3.5-5.0) g/dL Assessment and Plan Plan: #1. Altered mental status, multifactorial, related to acute EtOH withdrawal, and bilateral pneumonia, possibly related to aspiration interval worsening of the bilateral pulmonary infiltrates. There is also worsening of leukocytosis. The patient is currently on 100% nonrebreather facemask and the patient is also on 15 L high flow. IV antibiotics in the form of IV Zosyn. He is nothing by mouth for now. He was dynamically stable on no pressors. Overall condition Veins unchanged and the patient remains encephalopathic. Has been some improvement in his level of alertness yet overall I would say this is very much lethargic, he follows some simple commands yet with going to the treatment at time. Agitated. Motor function cannot be accurately assessed. Is able to grasp with his hands. Motor function the lower extremities are essentially very weak and he withdraws only to painful stimulation. Neurologic exam remains nonfocal. Family has not made a final decision regarding goals of treatment or hospice care. #2 Alcoholism #3. Acute hypoxic respiratory failure secondary to possibility of aspiration related to pneumonia, chest x-ray findings are consistent with diffuse bilateral pulmonary infiltrates with upper lobe predominance and a left-sided pleural effusion #4. Coagulopathy suspect secondary to liver disease #5. Acute kidney injury related to ATN, on IV fluids, and is at 1.9 #6. Hypertension #7. Poor nutritional status related to chronic alcoholism #8. Chronic alcoholic liver disease with secondary ascites \ #9 hyperchloremic hypernatremia, sodium level is improved #10 leukocytosis, improving Plan: Maintain aspiration precautions Chest x-ray was reviewed Continue IV Fluids at a swish to D5 water at the rate of 75 mL an hour Zosyn will be continued for now No Ativan Earlier EEG showed background slowing suggestive of severe encephalopathy. This is likely metabolic encephalopathy. It's reasonable to repeat a CAT scan of the brain to make sure there is no interval development of any new New abnormalities explaining his altered mentation. His neurologic exam remains nonfocal.I'm going to review the CAT scan of the head, obtain a noncontrast CAT scan. Monitor mental status. Avoid any sedative medications for now. Improved electrolyte balance and the sodium level is down to 143. Monitor renal funct ion. Neurology will be asked to reevaluate this patient. Final decision on his core status and possibility of end-of-life care has not been made. Family has not made a final decision regarding hospice care. obtain an Echo Has LV function and try a dose of diuretics Lasix 20 mg IV push 1. We'll assess his urine output. We'll continue to follow. For this patient is to be done with the family.
[2021-04-09] MEDS: PANTOPRAZOLE 40 MG/10 ML VIAL IV SCH (11:24)
[2021-04-09] MEDS: ENOXAPARIN 40 MG/0.4 ML SYRINGE SQ SCH (11:24)
[2021-04-09] MEDS: DEXTROSE 5% IN WATER 1,000 ML IV SCH (11:25)
[2021-04-09 11:43] LABS: Glucose,Whole Blood 108 mg/dL (75-99)
[2021-04-09] MEDS: THIAMINE 100 MG/ML 2 ML VIAL IVP SCH (12:12)
--- NOTE | 2021-04-09 13:12 | P.PN ---
Subjective Progress Note Date: 04/09/21 Neri Kurtz is a 70 yo M with PMH of alcoholism, drinks a fifth of whiskey daily who presented to the ED with increasing weakness and falls at home. He states that he had not been feeling like himself, stumbling and after falling at home he decided to come to the ED. He denies nausea, vomiting or diarrhea. He does endorse cough. Pt denies sweats or tremors. On presentation pt hypertensive, labs with Hgb 12, Cr 1.8, lactic 4. AST elevated, trop 0.04, BNP 3300. CXR with L basilar infiltrate. 04/02/2021 yesterday afternoon discovered to be nearly obtunded,lethargic, minimally responsive, received IV push Lasix and transferred to ICU with suspicions of EtOH seizures. Maintained on seizure precautions with seizure pads. Neurology consult in place, recommendations pending. Continues on IV fluid resuscitation, Haldol and CIWA protocol,recent seawall score 17. Remains lethargic, minimally conversant. Yesterday reported he drinks a gallon of whiskey daily. Brain CT for cerebral atrophy with no acute intracranial abnormality, atrophy increased compared to prior exam. ABGs noted. Chest x-ray reporting increasing left lower lobe pneumonia. Maintaining O2 sats in the 90s on 4 L nasal cannula. Pro-calcitonin elevated, 0.31. Maintained on azithromycin, ceftriaxone. Afebrile, normal WBC. Abdominal x-ray reported limited exam, nonacute, no free air, multiple old left-sided rib fractures. Abdominal ultrasound reporting ascites. Troponin 0.039, 0.038, 0.031. Hemoglobin 9.9, platelets 263, INR 2.5. Potassium 3.2, magnesium 1.9, creatinine 1.5. Alk phos trending down. 04/03/2021 continues on CIWA protocol, lethargic, maintained on 10 L high flow nasal cannula maintaining O2 sats in the 90s, respiratory rate in the 20s. Afebrile, WBC increased ,16.9. Creatinine 1.41. Chest x-ray reporting new extensive airspace disease in the right upper and midlung zone, left basilar pl eural pressure multiple disease on with possible deep sulcus and pneumothorax. Maintained on Rocephin and Zithromax, nebulized bronchodilators, IV steroids. 04/06/2021 significantly lethargic, nearly obtunded does not open eyes to his name, withdraws from noxious stimuli only. Seizure and aspiration precautions maintained. Continues on nebulized bronchodilators, steroids. maintained on 15 L high flow nasal cannula/ nonrebreather, maintaining O2 sats in the 90s, tachypneic respiratory rate 20-27. Chest x-ray reporting continued bilateral airspace disease left greater than right with interval worsening on the left, suggesting possibility of underlying pneumothorax. Continues on CIWA protocol, Zosyn. Afebrile, WBC increased to 21.8, blood cultures negative. Hemoglobin 9.5, platelets 335. Sodium increased to 148, bicarb 17, BUN 32, creatinine up to 1.32. Hospice consult placed as per patient's nephew. Case management disclosed that the nephew is actually not family but very close friend, who states he has medical DPOA papers and is attempting to locate them. In the meanwhile patient has estranged children, whereabouts are unknown. 04/07/2021 condition unchanged, maintained on 100% nonrebreather, maintained on IV antibiotics. Afebrile, worsening leukocytosis, WBC up to 23.9. Sodium worsening up to 150, renal function worsening creatinine up to 1.43. Emergent guardianship in progress. 04/08/2021 maintained on Zosyn, IV fluid hydration with D5W. Sodium 150. con tinues with alcoholic delirium. Ativan discontinued, patient restless, moaning, mumbling. Maintain him on percent nonrebreather/high flow nasal cannula maintaining O2 sats in the 90s. Chest x-ray reporting worsening bilateral lung infiltrates with increasing moderate left pleural effusion. Renal function worsening, creatinine up to 1.83. Bicarb 18. LFTs elevated/T bili up to 3.2. Afebrile, WBC increased ,24.1. 04/09/2021 agitated during the night requiring a dose of Haldol.lethargic, more alert this morning eyes opened, attempts to answer questions by mumbling. Aspiration and seizure precautions maintained. No seizure activity reported. Maintained on IV fluids of D5 W with sodium normalized. Blood sugars controlled. BUN 53, Creatinine up to 1.96. Chest x-ray reporting diffuse interstitial and perihilar changes, continued moderate left pleural effusion with adjacent atelectasis, consolidation similar, increasing opacity at right base, possible CHF, consistent with pneumonia.maintained on Zosyn.Afebrile, WBC decreased, 13.4. Maintained on high flow nasal cannula 15 L, maintaining O2 sats in the high 80s. Telemetry sinus rhythm,Hypotensive, systolic blood pressure in the 80s. Objective - Vital Signs Vital signs: Vital Signs Temp 98.2 F 04/09/21 04:00 Pulse 62 04/09/21 08:10 Resp 18 04/09/21 08:00 BP 83/67 04/09/21 08:00 Pulse Ox 96 04/09/21 08:00 Intake & Output 04/08/21 04/09/21 04/09/21 18:59 06:59 18:59 Intake Total 1950 1862.377 Output Total 450 520 Balance 1500 1342.377 Weight 94.5 kg Intake: IV 1850 1800 Dextrose 5% in Water 1, 1750 1800 000 ml @ 100 mls/hr IV . Q10H [facility] Rx#:[id number] Piperacillin-Tazobactam 3 100 .375 gm In Sodium Chloride 0.9% 100 ml @ 25 mls/hr IVPB Q8H [facility] Rx#: [id number] Intake, IV Titration 100 62.377 Amount Dexmedetomidine/0.9% NaCl 62.377 (Pmx) 400 mcg In Empty Bag 1 bag @ Titrate IV . Q0M [facility] Rx#:[id number] Potassium Chloride 10 meq 100 In Water For Injection 1 100ml.bag @ 100 mls/hr IVPB Q1H [facility] Rx#: [id number] Output: Urine 450 520 Other: Voiding Method Indwelling Catheter Indwelling Catheter - Exam General: Lethargic, more alert, eyes open attempting to converse,mumbles, Vitals reviewed Eyes: PERRL, EOMI, conjunctiva normal HENT: normocephalic, mucus membranes dry Neck: supple, no JVD Lungs: Increased respiratory effort,Lungs diminished with scattered rhonchi,occasional Fine Expiratory wheezing. CV: Regular rate and rhythm, no murmur. Peripheral pulses 2+ Abdomen: soft,distended, no organomegaly, positive bowel sounds Skin: warm and dry, no rashes Neuro: Limited exam, unable to assess at this time, EtOH delirium. - Labs CBC & Chem 7: 04/09/21 04:21 04/09/21 04:21 Labs: Abnormal Lab Results - Last 24 Hours (Table) 04/08/21 04/08/21 04/09/21 Range/Units 11:37 22:17 00:56 WBC (3.8-10.6) k/uL RBC (4.30-5.90) m/uL Hgb (13.0-17.5) gm/dL Hct (39.0-53.0) % MCV (80.0-100.0) fL MCHC (31.0-37.0) g/dL RDW (11.5-15.5) % Macrocytosis Chloride (98-107) mmol/L Carbon Dioxide (22-30) mmol/L BUN (9-20) mg/dL Creatinine (0.66-1.25) mg/dL Glucose (74-99) mg/dL POC Glucose (mg/dL) 120 H 110 H 125 H (75-99) mg/dL Calcium (8.4-10.2) mg/dL Total Bilirubin (0.2-1.3) mg/dL AST (17-59) U/L Alkaline Phosphatase (38-126) U/L Total Protein (6.3-8.2) g/dL Albumin (3.5-5.0) g/dL 04/09/21 04/09/21 04/09/21 Range/Units 04:21 04:21 06:06 WBC 13.4 H (3.8-10.6) k/uL RBC 2.43 L (4.30-5.90) m/uL Hgb 8.2 L (13.0-17.5) gm/dL Hct 27.4 L (39.0-53.0) % MCV 112.5 H (80.0-100.0) fL MCHC 30.1 L (31.0-37.0) g/dL RDW 17.6 H (11.5-15.5) % Macrocytosis Marked A Chloride 121 H (98-107) mmol/L Carbon Dioxide 19 L (22-30) mmol/L BUN 53 H (9-20) mg/dL Creatinine 1.96 H (0.66-1.25) mg/dL Glucose 134 H (74-99) mg/dL POC Glucose (mg/dL) 149 H (75-99) mg/dL Calcium 7.7 L (8.4-10.2) mg/dL Total Bilirubin 2.8 H (0.2-1.3) mg/dL AST 100 H (17-59) U/L Alkaline Phosphatase 373 H (38-126) U/L Total Protein 4.4 L (6.3-8.2) g/dL Albumin 1.9 L (3.5-5.0) g/dL Assessment and Plan Assessment: 1. Alcohol withdrawal with seizure in a patient with alcohol dependence. 2. Acute kidney injury, secondary to alcohol abuse, ATN. 3. Acute Bilateral pneumonia possibly community-acquired, possibly aspiration, possible underlying pneumothorax. Chest x-ray reporting worsening. 4. Acute hypoxic respiratory failure secondary to the above 5. Acute metabolic and toxic encephalopathy multifactorial, secondary to the above 6. Elevated AST 7. Elevated lactic 8. Ascites secondary to EtOH, Chronic liver disease. 9. No code, no CPR, no intubation 10. Poor nutritional status secondary to chronic alcoholism 11. Chronic alcoholic liver disease 12. Hyperchloremic Hypernatremia, improving Plan: Continue on current medication regime ,monitoring and symptomatic treatment. Repeat brain CT pending .Maintain supportive care ,ANTIBIOTICS, NEBULIZED BRONCHODILATORS.Seizure and aspiration precautions maintained. family has not decided regarding comfort care/hospice. Prognosis guarded given multiple complex medical issues. The impression and plan of care has been dictated as directed. : I performed a history and examination of this patient, discussed the same with the dictator. I agree with the dictator's note ,documented as a scribe. Any additional findings or plans will be noted.
--- NOTE | 2021-04-09 14:53 | CT ---
EXAMINATION TYPE: CT brain wo con DATE OF EXAM: 04/09/2021 COMPARISON: 04/01/2021 INDICATION: altered mental status DLP: 1099.4 mGycm, Automated exposure control for dose reduction was used. CONTRAST: None CT of the brain is performed utilizing 3 mm thick sections through the posterior fossa and 3 mm thick sections through the remaining calvarium. Study is performed within 24 hours of arrival to the hosp [facility]. No abnormal hyperdensity is present to suggest an acute intracranial hemorrhage. No mass lesion is evident. No acute infarcts are evident. Mild periventricular white matter hypodensity is present, likely on th e basis of chronic white matter ischemic changes. Ventricles and sulci are prominent for the patient age. Paranasal sinuses and mastoid air cells within the [id number] are clear. IMPRESSIONS: 1. Atrophy, findings appear stable from comparison.
[2021-04-09 18:36] LABS: Glucose,Whole Blood 112 mg/dL (75-99)
[2021-04-09 23:55] LABS: Glucose,Whole Blood 105 mg/dL (75-99)
[2021-04-10] MEDS: INSULIN ASPART (NovoLOG) 100 UNIT/ML VIAL SQ SCH ×4 (00:33→20:03)
[2021-04-10] MEDS: LABETALOL 5 MG/ML VIAL MDV IVP SCH ×2 (00:33→06:02)
[2021-04-10] MEDS: PIPERACILLIN-TAZOBACTAM 3.375 GM in SODIUM CHLORIDE 0.9% 100 ML IVPB SCH ×2 (03:08→10:40)
[2021-04-10] MEDS: DEXTROSE 5% IN WATER 1,000 ML IV SCH (03:14)
[2021-04-10 05:24] LABS: Anisocytosis Slight; HGB 9.4 gm/dL (13.0-17.5); Hypochromasia Moderate; MCH 34.6 pg (25.0-35.0); MCHC 31.3 g/dL (31.0-37.0); MCV 110.5 fL (80.0-100.0); Macrocytosis Marked; Mean Platelet Volume 8.9; Platelet Count 197 k/uL (150-450); RBC 2.71 m/uL (4.30-5.90); RDW 18.4 % (11.5-15.5)
[2021-04-10 05:27] LABS: Albumin 2.1 g/dL (3.5-5.0); Calcium 8.2 mg/dL (8.4-10.2); Potassium 3.7 mmol/L (3.5-5.1); Total Bilirubin 3.8 mg/dL (0.2-1.3); Total Protein 4.9 g/dL (6.3-8.2)
[2021-04-10 06:04] LABS: Glucose,Whole Blood 100 mg/dL (75-99)
[2021-04-10] MEDS: IPRATROPIUM-ALBUTEROL 3 ML NEB INHALATION SCH ×4 (07:39→19:22)
--- NOTE | 2021-04-10 09:39 | P.PN ---
Subjective Progress Note Date: 04/10/21 This is a 70-year-old male patient with a history of hypertension and alcohol abuse. He did have an ongoing weakness and falls at home. He had been drinking daily and not eating much. He presented to the emergency room yesterday with shortness of breath and feelings of dehydration. X-ray of the left hip revealed no fracture. X-ray of the pelvis reveals no fracture. X-ray of the abdomen revealed nonacute abdomen. No free air. Computed tomography scan of the brain revealed cerebral atrophy. No acute intracranial abnormalities. Chest x-ray revealed left greater than right bibasilar pleural parenchymal disease. He was admitted to the regular medical floor. Last evening approximately 5:30 the patient was found on the floor lethargic and minimally responsive. He was only arousing to loud questions. ABGs, chest x-ray and labs were drawn. He was given IV Lasix and transferred to the intensive care unit for concerns regarding possible seizure. He is seen today in consultation. He is currently resting in bed. He is barely arousable. He is mumbling. He is maintaining O2 saturations in the 90s on 4 L/m per nasal cannula. He does have 0.9 normal saline at 130 mL by mouth per hour. Suspect alcohol withdrawal syndrome. He is on the CIWA protocol. Abdomen is distended. He is currently on ceftriaxone and azithromycin. Lovenox for DVT prophylaxis. Haldol for agitation. Thiamine. ABGs revealed a pO2 of 78, pCO2 22, pH 7.46 on 32% FiO2. White count 8.1. Hemoglobin 9.9. MCV 108.9. Platelets 263. Sodium 136. Potassium 3.2. Creatinine 1.58. ProBNP 3300. Troponin negative. Serum alcohol level was less than 10. INR 2.5. On 04/03/2021 patient seen in follow-up in the intensive care unit. He is short of breath, and audibly wheezy during today's exam, he is on 10 L of oxygen this morning, with a pulse ox of 93-95%, he is currently on 0.9 normal saline at a ra te of 1:30 ML per hour, he remains on CIWA protocol for acute alcohol withdrawal, he received a total of 6 mg of Ativan overnight in addition to haldol. he is confused, he is lethargic, he is not following commands. Lung sounds reveal equal air entry bilaterally, with diffuse wheezing throughout.rem ains on antibiotics in the combination of Zithromax and Rocephin, we added back pain treatments and IV steroids this morning. today's chest x-ray shows new extensive airspace disease in the right upper and mid lung zone, left basilar pleural parenchymal disease was again seen with possible deep sulcus and pneumothorax could not be definitely excluded. today's labs have been reviewed, and there has been an increase in patient's white blood cell count up to 16.9, hemoglobin is 11.3, sodium is 139, potassium is 4.5, chloride is 114, CO2 is 16, BUN of 27, creatinine is 1.41. IV fluids infusing at a rate of 1:30 ML per hour, patient has been nothing by mouth in view of his decreased level of cons ciousness, his had limited oral intake, his urine output has been in the order of 25-30 ML per hour. On 04/04/2021 patient seen in follow-up in the intensive care unit, he remains poorly responsive, breathing spontaneously, he is currently on 11 L per high flow nasal cannula, his pulse ox is 91-97%, he sounds less bronchospastic on today's exam, lung sounds reveal diffuse rhonchi, and some scattered wheezes. Febrile overnight, hemodynamically has been stable, he remains on 0.9 normal saline at a rate of 1:30 ML per hour, his been kept nothing by mouth in view of his decreased level of consciousness. His CODE STATUS is DO NOT RESUSCITATE, no new chest x-ray today, yesterday's chest x-ray showed new extensive airspace disease in the right upper and right midlung zone and left basilar pleural parenchymal disease. Possibility of aspiration pneumonia is suspected, his antibiotic was switched to Zosyn. His white blood cell count is improving on today's labs. He is not able to produce a sputum specimen for culture, his blood cultures have been negative thus far. He is less tachycardic, he is in sinus mechanism with a controlled rate, he was started on steroids and breathing treatments, DVT and GI prophylaxis. Remains on CIWA protocol, received 2 mg of Ativan this morning. Remains calm, not opening eyes to verbal or tactile stimulation. On 04/05/2021 patient seen in follow-up in the intensive care unit, this morning his mentation is still Altered, he is poorly responsive, breathing spontaneously, he is on 15 L of oxygen per high flow nasal cannula with O2 sat of 90-94%, patient has been afebrile, hemodynamically he is been stable, he is actually a bit hypertensive this morning, with a blood pressure of 170/91. He remains on 0.9 normal saline at 130 ML per hour, and he is significantly in positive fluid balance. He is lethargic, he has not been able to clear any se cretions, lung sounds reveal diffuse rhonchi, this chest x-ray shows diffuse bilateral opacities with interval worsening, left lower lobe collapse, small left pleural effusion slightly increased in size compared to prior. No pneumothorax. She remains on IV steroids, nebulized bronchodilators, and Zosyn. Remains on CIWA protocol. His CIWA scale is 8 or 9, he did receive 1 dose of Ativan early this morning. Hospice and palliative care consultation was placed after discussing chest condition with the patient's nephew Og, who agreed to hospice. For now patient continues on supportive treatment. 04/06/2021, the patient is being seen in follow-up. This is an alcoholic 70-year-old patient with known history of chronic alcoholic liver disease and chronic debility who presented with hypoxic respiratory failure, altered mental status and aspiration pneumonia. The patient is still doing poorly. He remains on 15 L of oxygen by nasal cannula and is also on 100% nonrebreather facemask.. He remains on IV Zosyn. Hemodynamically stable. Quite lethargic. He remains on CIWA protocol. The patient is receiving supportive care in the ICU in preparation for hospice care at which the patient's family agreed regarding his advanced and debilitated condition. This morning, the patient continues to move 1. Unresponsive. Chest x-rays showing diffuse but the pulmonary infiltrates, there is right upper lobe pulmonary infiltrate in addition to extensive infiltration of the left lung with questionable left apical pneumothorax. There is an average seen in the periphery of the left up per lobe which obviously raises the concern for pneumothorax. Meanwhile, the patient remains on IV Zosyn for now. Blood cultures of been negative. On the blood work today white cell count is 21 which is higher compared to yesterday and the sodium level is up to 148 with a serum bicarb of 17 and a creatinine of 1.3. IV fluids are in the form of 0.9 at the rate of 20 mL an hour. 04/07/2021, the patient remains extremely lethargic, nonresponsive, he continues to moan, may withdraw to deep painful stimulation and grimaces to deep painful stimulation. Cannot hold a conversation. Still 100% nonrebreather facemask. His ammonia level was low. CAT scan of the brain that was done on 04/01/2021 showed chronic atrophy. No acute abnormalities were seen on the CAT scan of the brain. Meanwhile, the patient continues to be altered neurologically. At the same time, the patient's is having an acute hypoxic respiratory failure with diffuse but the pulmonary infiltrates with upper lobe predominance and a developing left sided pleural effusion. The patient is suspected to have aspiration. The patient is on IV Zosyn. Possibility of an acute lung injury cannot be completely excluded. There was a questionable pneumothorax on yesterday'sx, not seen on today's chest x-ray. I further note, they patient's sodium level is up to 151 and his potassium level is at 5.1. The patient also has developed an acute kidney injury and creatinine is at 1.4 with a BUN of 43. Note that this creatinine is slightly improved compared to the initial creatinine, admission which was at 1.8. There may be a component of chronic kidney disease. His white cell count is currently at 23 which is slightly h igher compared to yesterday. As such, the patient remains encephalopathy worsening hypoxemic respiratory failure. He remains on IV Zosyn. He remains on IV fluid with normal saline at the rate of 75 mL an hour. He remains on IV Solu Medrol 60 mg every 6 hours. He is on DuoNeb nebulized treatments around the clock. He has not received any Ativan overnight. He remains on IV Protonix 04/08/2021, the patient continues to moan. He mumbles. He is speaking a few sentences. He can follow simple commands. He is extremely lethargic and weak. I with a slightly more alert compared to yesterday. He remains on a 1 cm facemask in addition to high flow oxygen. Chest x-ray remained unchanged with diffuse bilateral pulmonary infiltrates and a left-sided pleural effusion. He remains on IV Zosyn. His sodium level is elevated at 150s. The patient is on D5 water. Creatinine is up to 1.8. He is holding his own blood pressure. Hemodynamically stable. Urine output is in order of 100 mL an hour. Her activity. No other issues for now. He remains nothing by mouth. He remains on IV Protonix. Blood work shows a sodium of 150 with a potassium of 3.7. Serum bicarb is at 18. BNP is 3 with a creatinine of 1.8. LFTs remained abnormal. White cell count is at 24.1. 04/09/2021, I'm seeing this patient for a follow-up. I would say he is doing slow progress in terms of his mentation. He remains extremely lethargic, at times agitated, sees most of the time of mumbles and moans constantly. Nevertheless, when asked simple questions such as moving his toes or hands, he would comply. He has a very weak grasp using his hands. Unable to raise his arms against gravity. He is trying to speak. We can sometimes understand few words. For the most part, his speech is still garbled. No seizure activity. No neck stiffness. No fever. No aspiration. He remains nothing by mouth. He remains on D5 water at the rate of 150 mL an hour and his sodium level is down to 143. His BUN is a 53 with a creatinine of 1.9 and this is essentially stable compared to yesterday. His urine output is in order of 30 mL an hour. His white cell count is down to 13.4. As for his follow-up chest x-ray from today, there are some improvement in the volume status and infiltration. There is still diffuse interstitial and perihilar infiltrate and a left-sided pleural effusion. There is also increased opacity in the right lung base consistent with pneumonia. The overall picture is consistent with pneumonia with possibly component of CHF. His ammonia level has been low. Overnight, he became more agitated. He received a dose of Haldol around 9 PM. Subsequently because of increased agitation, he was briefly placed on Precedex which made him hypotensive and bradycardic and this was discontinued. Since then, the patient has not required any further sedatives. Earlier this morning, I took him off the nonrebreather facemask. He is on high flow oxygen at 15 L and his pulse ox is currently ranging at around 88-89%. Most recent BP is 80/53. No significant tachycardia. Cardiac rhythm is sinus. No tachypnea. No symptoms to swelling in lower extremities. 04/10/2021, the patient is much more awake and communicating and following commands and answering questions appropriately. He is not taking any sedative medications. Is gradually recovering. Mentation. He is lethargic but he is obviously awake and alert and following commands and answering questions appropriately. He is also having a bedside swallow evaluation and according to the therapist is able to swallow appropriately. Was taken off the 100% nonrebreather facemask and the patient is currently on a oxygen by nasal cannula high flow at 10 L. The patient is still IV fluids with D5 water at the rate of 75 mL an hour. Sodium level is at 144. Creatinine is at 50 with a creatinine of 1.9. Serum bicarb is a 16. White cell count and 16 with a hemoglobin of 9.4. Platelets at 197. The follow-up chest exit needs to be done today. In terms of medication, the patient is on Lovenox 40 mg subcu for DVT prophylaxis. IV Zosyn regarding aspiration pneumonia. He is also taking DuoNeb nebulized treatments around the clock. No other significant events otherwise for now. He is quite pleasant. Objective - Vital Signs Vital signs: Vital Signs Temp 98.1 F 04/10/21 04:00 Pulse 86 04/10/21 07:50 Resp 18 04/10/21 07:00 BP 124/74 04/10/21 07:00 Pulse Ox 92 L 04/10/21 07:00 Intake & Output 04/09/21 04/10/21 04/10/21 18:59 06:59 18:59 Intake Total 1125 975 Output Total 460 395 Balance 665 580 Weight 95.3 kg Intake: IV 1125 975 Dextrose 5% in Water 1, 1125 975 000 ml @ 75 mls/hr IV . [id number] [facility] Rx#:[id number] Output: Urine 460 395 Other: Voiding Method Indwelling Catheter Indwelling Catheter - Exam GENERAL EXAM: poorly responsive, 70-year-old white male, 10 L of oxygen pulse ox of 92%, comfortable no signs of any respiratory distress HEAD: Normocephalic/atraumatic. EYES: Normal reaction of pupils, equal size. Conjunctiva pink, sclera white. NOSE: Clear with pink turbinates. THROAT: No erythema or exudates. NECK: No masses, no JVD, no thyroid enlargement, no adenopathy. CHEST: No chest wall deformity. Symmetrical expansion. LUNGS: Equal air entry with diffuse rhonchi, minimal wheezes CVS: Regular rate and rhythm, normal S1 and S2, no gallops, no murmurs, no rubs ABDOMEN: Soft, nontender. No hepatosplenomegaly, normal bowel sounds, no guarding or rigidity. EXTREMITIES: No clubbing, no edema, no cyanosis, 2+ pulses and upper and lower extremities. MUSCULOSKELETAL: Muscle strength and tone normal. SPINE: No scoliosis or deformity SKIN: No rashes CENTRAL NERVOUS SYSTEM: The patient is following commands and he is alert and oriented 3. There is generalized global weakness. There are also some minimal tremors. Nevertheless, he is not showing any focal neurological deficits. He has a good cough. He was recorded reactive to light. No encephalopathy. - Labs CBC & Chem 7: 04/10/21 04:27 04/10/21 04:27 Labs: Abnormal Lab Results - Last 24 Hours (Table) 04/09/21 04/09/21 04/09/21 Range/Units 11:40 18:35 23:54 WBC (3.8-10.6) k/uL RBC (4.30-5.90) m/uL Hgb (13.0-17.5) gm/dL Hct (39.0-53.0) % MCV (80.0-100.0) fL RDW (11.5-15.5) % Macrocytosis Chloride (98-107) mmol/L Carbon Dioxide (22-30) mmol/L BUN (9-20) mg/dL Creatinine (0.66-1.25) mg/dL POC Glucose (mg/dL) 108 H 112 H 105 H (75-99) mg/dL Calcium (8.4-10.2) mg/dL Total Bilirubin (0.2-1.3) mg/dL AST (17-59) U/L Alkaline Phosphatase (38-126) U/L Total Protein (6.3-8.2) g/dL Albumin (3.5-5.0) g/dL 04/10/21 04/10/21 04/10/21 Range/Units 04:27 04:27 06:03 WBC 16.0 H (3.8-10.6) k/uL RBC 2.71 L (4.30-5.90) m/uL Hgb 9.4 L (13.0-17.5) gm/dL Hct 30.0 L (39.0-53.0) % MCV 110.5 H (80.0-100.0) fL RDW 18.4 H (11.5-15.5) % Macrocytosis Marked A Chloride 118 H (98-107) mmol/L Carbon Dioxide 18 L (22-30) mmol/L BUN 50 H (9-20) mg/dL Creatinine 1.98 H (0.66-1.25) mg/dL POC Glucose (mg/dL) 100 H (75-99) mg/dL Calcium 8.2 L (8.4-10.2) mg/dL Total Bilirubin 3.8 H (0.2-1.3) mg/dL AST 109 H (17-59) U/L Alkaline Phosphatase 563 H (38-126) U/L Total Protein 4.9 L (6.3-8.2) g/dL Albumin 2.1 L (3.5-5.0) g/dL Assessment and Plan Plan: #1. Altered mental status, multifactorial, related to acute EtOH withdrawal, and bilateral pneumonia, and metabolic encephalopathy which ultimately recovered and the patient is gradually improved over the past 24-48 hours and this morning is awake and oriented 3. He continues to be quite weak and debilitated. Nevertheless, neurologically alert and appropriate. #2 Alcoholism #3. Acute hypoxic respiratory failure secondary to possibility of aspiration related to pneumonia, chest x-ray findings are consistent with diffuse bilateral pulmonary infiltrates with upper lobe predominance and a left-sided pleural effusion , currently on 10 L of oxygen by nasal cannula. Repeat chest x-ray from today is pending. #4. Coagulopathy suspect secondary to liver disease #5. Acute kidney injury related to ATN, and is stable at 1.9 #6. Hypertension #7. Poor nutritional status related to chronic alcoholism #8. Chronic alcoholic liver disease with secondary ascites \ #9 hyperchloremic hypernatremia, recovered with a white cell count today, #10 leukocytosis, improving Plan: Swallow evaluation was done at the bedside Patient passed a swallow evaluation will provide him diet Chest x-ray was reviewed Continue IV Fluids NSS mL an hour Zosyn will be continued for now No Ativan coagulation profile to evaluate liver function and look for an underlying coagulation status Obviously, with recovered remarkably recovered and the patient has demonstrated, we'll put the hospice business on hold. Will inform the family. Will involve physical therapy. We will keep him in ICU for another 24 hours.
--- NOTE | 2021-04-10 10:05 | XR ---
EXAMINATION TYPE: XR chest 1V portable DATE OF EXAM: 04/10/2021 HISTORY: Shortness of breath. COMPARISON: 04/09/2021 TECHNIQUE: Single view of the chest is submitted. FINDINGS: Demonstrated are scattered senescent parenchymal change. Patchy perihilar and basilar infiltrates. Small left-sided pleural effusion. The heart is stable. Hilar and mediastinal structures are within normal limits. Degenerative changes are seen of the dorsal spine. IMPRESSION: 1. Patchy perihilar and basilar infiltrates. Small left-sided pleural effusion.
--- NOTE | 2021-04-10 10:15 | ECHOF ---
Referral Reason:CHF MEASUREMENTS -------- HEIGHT: 162.6 cm WEIGHT: 94.3 kg BP: RVIDd: 3.4 cm (< 3.3) IVSd: 1.3 cm (0.6 - 1.1) LVIDd: 3.2 cm (3.9 - 5.3) LVPWd: 1.2 cm (0.6 - 1.1) IVSs: 1.4 cm LVIDs: 2.2 cm LVPWs: 1.0 cm LA Diam: 3.7 cm (2.7 - 3.8) Ao Diam: 3.6 cm (2.0 - 3.7) AV Cusp: 2.1 cm (1.5 - 2.6) LA Diam: 3.9 cm (2.7 - 3.8) MV E Kirby: 0.51 m/s MV DecT: 317 ms MV A Kirby: 0.92 m/s MV E/A Ratio: 0.55 RAP: 5.00 mmHg RVSP: 10.65 mmHg FINDINGS -------- Sinus rhythm. This was a technically adequate study. The left ventricular size is normal. There is mild concentric left ventricular hypertrophy. Overa ll left ventricular systolic function is low-normal with, an EF between 50 - 55 %. The right ventricle is normal in size. The left atrial size is normal. The right atrial size is normal. There is mild aortic valve sclerosis. Mild mitral annular calcification present. Mild tricuspid regurgitation present. Right ventricular systolic pressure is normal at < 35 mmHg. The pulmonic valve was not well visualized. Echo free space represents a pericardial fat pad. CONCLUSIONS -------- 1. The left ventricular size is normal. 2. There is mild concentric left ventricular hypertrophy. 3. Overall left ventricular systolic function is low-normal with, an EF between 50 - 55 %. 4. The right ventricle is normal in size. 5. The left atrial size is normal. 6. The right atrial size is normal. 7. There is mild aortic valve sclerosis. 8. Mild mitral annular calcification present. 9. Mild tricuspid regurgitation present. 10. The pulmonic valve was not well visualized. 11. Echo free space represents a pericardial fat pad. COMPLETIONS ENGINEER: Anne Arriaga RDCS
[2021-04-10 10:18] LABS: Prothrombin Time 19.2 sec (9.0-12.0)
[2021-04-10] MEDS: PANTOPRAZOLE 40 MG/10 ML VIAL IV SCH (10:41)
[2021-04-10] MEDS: ENOXAPARIN 40 MG/0.4 ML SYRINGE SQ SCH (10:41)
[2021-04-10] MEDS: POTASSIUM CHLORIDE 10 MEQ in WATER FOR INJECTION 1 100ML.BAG IVPB SCH (10:43)
[2021-04-10] MEDS ORDERED: POTASSIUM BICARBONATE/CIT AC 20 MEQ TABLET.EFF NG-TUBE SCH (11:00)
[2021-04-10 11:55] LABS: Glucose,Whole Blood 101 mg/dL (75-99)
--- NOTE | 2021-04-10 13:16 | P.PN ---
Subjective Progress Note Date: 04/10/21 Neri Kurtz is a 70 yo M with PMH of alcoholism, drinks a fifth of whiskey daily who presented to the ED with increasing weakness and falls at home. He states that he had not been feeling like himself, stumbling and after falling at home he decided to come to the ED. He denies nausea, vomiting or diarrhea. He does endorse cough. Pt denies sweats or tremors. On presentation pt hypertensive, labs with Hgb 12, Cr 1.8, lactic 4. AST elevated, trop 0.04, BNP 3300. CXR with L basilar infiltrate. 04/02/2021 yesterday afternoon discovered to be nearly obtunded,lethargic, minimally responsive, received IV push Lasix and transferred to ICU with suspicions of EtOH seizures. Maintained on seizure precautions with seizure pads. Neurology consult in place, recommendations pending. Continues on IV fluid resuscitation, Haldol and CIWA protocol,recent seawall score 17. Remains lethargic, minimally conversant. Yesterday reported he drinks a gallon of whiskey daily. Brain CT for cerebral atrophy with no acute intracranial abnormality, atrophy increased compared to prior exam. ABGs noted. Chest x-ray reporting increasing left lower lobe pneumonia. Maintaining O2 sats in the 90s on 4 L nasal cannula. Pro-calcitonin elevated, 0.31. Maintained on azithromycin, ceftriaxone. Afebrile, normal WBC. Abdominal x-ray reported limited exam, nonacute, no free air, multiple old left-sided rib fractures. Abdominal ultrasound reporting ascites. Troponin 0.039, 0.038, 0.031. Hemoglobin 9.9, platelets 263, INR 2.5. Potassium 3.2, magnesium 1.9, creatinine 1.5. Alk phos trending down. 04/03/2021 continues on CIWA protocol, lethargic, maintained on 10 L high flow nasal cannula maintaining O2 sats in the 90s, respiratory rate in the 20s. Afebrile, WBC increased ,16.9. Creatinine 1.41. Chest x-ray reporting new extensive airspace disease in the right upper and midlung zone, left basilar pl eural pressure multiple disease on with possible deep sulcus and pneumothorax. Maintained on Rocephin and Zithromax, nebulized bronchodilators, IV steroids. 04/06/2021 significantly lethargic, nearly obtunded does not open eyes to his name, withdraws from noxious stimuli only. Seizure and aspiration precautions maintained. Continues on nebulized bronchodilators, steroids. maintained on 15 L high flow nasal cannula/ nonrebreather, maintaining O2 sats in the 90s, tachypneic respiratory rate 20-27. Chest x-ray reporting continued bilateral airspace disease left greater than right with interval worsening on the left, suggesting possibility of underlying pneumothorax. Continues on CIWA protocol, Zosyn. Afebrile, WBC increased to 21.8, blood cultures negative. Hemoglobin 9.5, platelets 335. Sodium increased to 148, bicarb 17, BUN 32, creatinine up to 1.32. Hospice consult placed as per patient's nephew. Case management disclosed that the nephew is actually not family but very close friend, who states he has medical DPOA papers and is attempting to locate them. In the meanwhile patient has estranged children, whereabouts are unknown. 04/07/2021 condition unchanged, maintained on 100% nonrebreather, maintained on IV antibiotics. Afebrile, worsening leukocytosis, WBC up to 23.9. Sodium worsening up to 150, renal function worsening creatinine up to 1.43. Emergent guardianship in progress. 04/08/2021 maintained on Zosyn, IV fluid hydration with D5W. Sodium 150. con tinues with alcoholic delirium. Ativan discontinued, patient restless, moaning, mumbling. Maintain him on percent nonrebreather/high flow nasal cannula maintaining O2 sats in the 90s. Chest x-ray reporting worsening bilateral lung infiltrates with increasing moderate left pleural effusion. Renal function worsening, creatinine up to 1.83. Bicarb 18. LFTs elevated/T bili up to 3.2. Afebrile, WBC increased ,24.1. 04/09/2021 agitated during the night requiring a dose of Haldol.lethargic, more alert this morning eyes opened, attempts to answer questions by mumbling. Aspiration and seizure precautions maintained. No seizure activity reported. Maintained on IV fluids of D5 W with sodium normalized. Blood sugars controlled. BUN 53, Creatinine up to 1.96. Chest x-ray reporting diffuse interstitial and perihilar changes, continued moderate left pleural effusion with adjacent atelectasis, consolidation similar, increasing opacity at right base, possible CHF, consistent with pneumonia.maintained on Zosyn.Afebrile, WBC decreased, 13.4. Maintained on high flow nasal cannula 15 L, maintaining O2 sats in the high 80s. Telemetry sinus rhythm,Hypotensive, systolic blood pressure in the 80s. 04/10/2021 significant clinical improvement. this morning much more awake ,alert and oriented 3, communicating appropriately, answers questions appropriately. Very weak, moves all 4 extremities. Speech therapy at bedside swallow evaluation pending. Oxygen has been decreased down to 10 L nasal cannula high flow, maintaining O2 sats in the 90s. Chest x-ray reporting patchy perihilar and basilar infiltrates, small left-sided pleural effusion. Repeat brain CT completed yesterday reporting stable from comparison. Sodium 144 on IV fluids of D5W. Creatinine 1.98. Bicarb 18. Continues on Zosyn, nebulized bronchodilators. Afebrile, WBC 16. Objective - Vital Signs Vital signs: Vital Signs Temp 97.4 F L 04/10/21 08:00 Pulse 82 04/10/21 11:23 Resp 23 04/10/21 11:00 BP 110/84 04/10/21 11:00 Pulse Ox 91 L 04/10/21 11:00 Intake & Output 04/09/21 04/10/21 04/10/21 18:59 06:59 18:59 Intake Total 1125 975 Output Total 460 395 Balance 665 580 Weight 95.3 kg 95.3 kg Intake: IV 1125 975 Dextrose 5% in Water 1, 1125 975 000 ml @ 75 mls/hr IV . [id number] [facility] Rx#:[id number] Output: Urine 460 395 Other: Voiding Method Indwelling Catheter Indwelling Catheter Indwelling Catheter - Exam General: Sitting up in bed, alert and oriented 3, no acute distress, weak Eyes: PERRL, EOMI, conjunctiva normal HENT: normocephalic, mucus membranes dry Neck: supple, no JVD Lungs: Increased respiratory effort,Lungs diminished with scattered rhonchi. CV: Regular rate and rhythm, no murmur. Peripheral pulses 2+ Abdomen: soft,distended, no organomegaly, positive bowel sounds Skin: warm and dry, no rashes Neuro: Cranial nerves 2 through 12 grossly intact. Moves all 4 extremities. Generalized weakness with Sensation intact. - Labs CBC & Chem 7: 04/10/21 04:27 04/10/21 04:27 Labs: Abnormal Lab Results - Last 24 Hours (Table) 04/09/21 04/09/21 04/10/21 Range/Units 18:35 23:54 04:27 WBC 16.0 H (3.8-10.6) k/uL RBC 2.71 L (4.30-5.90) m/uL Hgb 9.4 L (13.0-17.5) gm/dL Hct 30.0 L (39.0-53.0) % MCV 110.5 H (80.0-100.0) fL RDW 18.4 H (11.5-15.5) % Macrocytosis Marked A PT (9.0-12.0) sec INR (<1.2) Chloride (98-107) mmol/L Carbon Dioxide (22-30) mmol/L BUN (9-20) mg/dL Creatinine (0.66-1.25) mg/dL POC Glucose (mg/dL) 112 H 105 H (75-99) mg/dL Calcium (8.4-10.2) mg/dL Total Bilirubin (0.2-1.3) mg/dL AST (17-59) U/L Alkaline Phosphatase (38-126) U/L Total Protein (6.3-8.2) g/dL Albumin (3.5-5.0) g/dL 04/10/21 04/10/21 04/10/21 Range/Units 04:27 06:03 09:51 WBC (3.8-10.6) k/uL RBC (4.30-5.90) m/uL Hgb (13.0-17.5) gm/dL Hct (39.0-53.0) % MCV (80.0-100.0) fL RDW (11.5-15.5) % Macrocytosis PT 19.2 H (9.0-12.0) sec INR 2.0 H (<1.2) Chloride 118 H (98-107) mmol/L Carbon Dioxide 18 L (22-30) mmol/L BUN 50 H (9-20) mg/dL Creatinine 1.98 H (0.66-1.25) mg/dL POC Glucose (mg/dL) 100 H (75-99) mg/dL Calcium 8.2 L (8.4-10.2) mg/dL Total Bilirubin 3.8 H (0.2-1.3) mg/dL AST 109 H (17-59) U/L Alkaline Phosphatase 563 H (38-126) U/L Total Protein 4.9 L (6.3-8.2) g/dL Albumin 2.1 L (3.5-5.0) g/dL 04/10/21 Range/Units 11:54 WBC (3.8-10.6) k/uL RBC (4.30-5.90) m/uL Hgb (13.0-17.5) gm/dL Hct (39.0-53.0) % MCV (80.0-100.0) fL RDW (11.5-15.5) % Macrocytosis PT (9.0-12.0) sec INR (<1.2) Chloride (98-107) mmol/L Carbon Dioxide (22-30) mmol/L BUN (9-20) mg/dL Creatinine (0.66-1.25) mg/dL POC Glucose (mg/dL) 101 H (75-99) mg/dL Calcium (8.4-10.2) mg/dL Total Bilirubin (0.2-1.3) mg/dL AST (17-59) U/L Alkaline Phosphatase (38-126) U/L Total Protein (6.3-8.2) g/dL Albumin (3.5-5.0) g/dL Assessment and Plan Assessment: 1. Alcohol withdrawal with seizure in a patient with alcohol dependence. 2. Acute kidney injury, secondary to alcohol abuse, ATN. 3. Acute Bilateral pneumonia possibly community-acquired, possibly aspiration, possible underlying pneumothorax. Chest x-ray reporting worsening. 4. Acute hypoxic respiratory failure secondary to the above, improving 5. Acute metabolic and toxic encephalopathy multifactorial, secondary to the above, improving 6. Elevated AST 7. Elevated lactic 8. Ascites secondary to EtOH, Chronic liver disease. 9. No code, no CPR, no intubation 10. Poor nutritional status secondary to chronic alcoholism 11. Chronic alcoholic liver disease 12. Hyperchloremic Hypernatremia, improving with sodium within normal limits 13. Medical debility, prolonged hospitalization, significant weakness Plan: Continue on current medication regime ,monitoring and symptomatic treatment. ANTIBIOTICS, NEBULIZED BRONCHODILATORS. Swallow evaluation pending .Swallow evaluation PT/OT. Social work to assist with possible subacute rehab at discharge. Prognosis guarded given multiple complex medical issues. The impression and plan of care has been dictated as directed. : I performed a history and examination of this patient, discussed the same with the dictator. I agree with the dictator's note ,documented as a scribe. Any additional findings or plans will be noted.
[2021-04-10] MEDS: THIAMINE 100 MG TAB PO SCH (14:21)
[2021-04-10] MEDS: SODIUM CHLORIDE 0.9% 1,000 ML IV SCH (14:22)
[2021-04-10 16:48] LABS: Glucose,Whole Blood 92 mg/dL (75-99)
[2021-04-10] MEDS ORDERED: PIPERACILLIN-TAZOBACTAM 3.375 GM in SODIUM CHLORIDE 0.9% 100 ML IVPB SCH (19:00)
[2021-04-10 20:34] LABS: Glucose,Whole Blood 92 mg/dL (75-99)
[2021-04-11] MEDS: PIPERACILLIN-TAZOBACTAM 3.375 GM in SODIUM CHLORIDE 0.9% 100 ML IVPB SCH ×3 (00:34→17:00)
[2021-04-11 03:49] LABS: Anisocytosis Slight; HGB 9.4 gm/dL (13.0-17.5); Hypochromasia Moderate; MCH 34.8 pg (25.0-35.0); MCHC 31.4 g/dL (31.0-37.0); MCV 110.7 fL (80.0-100.0); Macrocytosis Marked; Platelet Count 176 k/uL (150-450); RBC 2.71 m/uL (4.30-5.90); RDW 19.4 % (11.5-15.5); WBC 17.2 k/uL (3.8-10.6)
[2021-04-11 04:04] LABS: Albumin 2.2 g/dL (3.5-5.0); Calcium 8.4 mg/dL (8.4-10.2); Potassium 3.8 mmol/L (3.5-5.1); Total Protein 4.9 g/dL (6.3-8.2)
[2021-04-11] MEDS ORDERED: POTASSIUM BICARBONATE/CIT AC 20 MEQ TABLET.EFF NG-TUBE SCH (06:00)
[2021-04-11 06:31] LABS: Glucose,Whole Blood 87 mg/dL (75-99)
[2021-04-11] MEDS: SODIUM CHLORIDE 0.9% 1,000 ML IV SCH (06:40)
[2021-04-11] MEDS: IPRATROPIUM-ALBUTEROL 3 ML NEB INHALATION SCH ×4 (07:02→19:16)
[2021-04-11] MEDS ORDERED: INSULIN ASPART (NovoLOG) 100 UNIT/ML VIAL SQ SCH (07:30)
[2021-04-11] MEDS: THIAMINE 100 MG TAB PO SCH (07:51)
[2021-04-11] MEDS: PANTOPRAZOLE 40 MG/10 ML VIAL IV SCH (07:51)
[2021-04-11] MEDS: ENOXAPARIN 40 MG/0.4 ML SYRINGE SQ SCH (07:51)
--- NOTE | 2021-04-11 09:38 | P.PN ---
Subjective Progress Note Date: 04/11/21 This is a 70-year-old male patient with a history of hypertension and alcohol abuse. He did have an ongoing weakness and falls at home. He had been drinking daily and not eating much. He presented to the emergency room yesterday with shortness of breath and feelings of dehydration. X-ray of the left hip revealed no fracture. X-ray of the pelvis reveals no fracture. X-ray of the abdomen revealed nonacute abdomen. No free air. Computed tomography scan of the brain revealed cerebral atrophy. No acute intracranial abnormalities. Chest x-ray revealed left greater than right bibasilar pleural parenchymal disease. He was admitted to the regular medical floor. Last evening approximately 5:30 the patient was found on the floor lethargic and minimally responsive. He was only arousing to loud questions. ABGs, chest x-ray and labs were drawn. He was given IV Lasix and transferred to the intensive care unit for concerns regarding possible seizure. He is seen today in consultation. He is currently resting in bed. He is barely arousable. He is mumbling. He is maintaining O2 saturations in the 90s on 4 L/m per nasal cannula. He does have 0.9 normal saline at 130 mL by mouth per hour. Suspect alcohol withdrawal syndrome. He is on the CIWA protocol. Abdomen is distended. He is currently on ceftriaxone and azithromycin. Lovenox for DVT prophylaxis. Haldol for agitation. Thiamine. ABGs revealed a pO2 of 78, pCO2 22, pH 7.46 on 32% FiO2. White count 8.1. Hemoglobin 9.9. MCV 108.9. Platelets 263. Sodium 136. Potassium 3.2. Creatinine 1.58. ProBNP 3300. Troponin negative. Serum alcohol level was less than 10. INR 2.5. On 04/03/2021 patient seen in follow-up in the intensive care unit. He is short of breath, and audibly wheezy during today's exam, he is on 10 L of oxygen this morning, with a pulse ox of 93-95%, he is currently on 0.9 normal saline at a ra te of 1:30 ML per hour, he remains on CIWA protocol for acute alcohol withdrawal, he received a total of 6 mg of Ativan overnight in addition to haldol. he is confused, he is lethargic, he is not following commands. Lung sounds reveal equal air entry bilaterally, with diffuse wheezing throughout.rem ains on antibiotics in the combination of Zithromax and Rocephin, we added back pain treatments and IV steroids this morning. today's chest x-ray shows new extensive airspace disease in the right upper and mid lung zone, left basilar pleural parenchymal disease was again seen with possible deep sulcus and pneumothorax could not be definitely excluded. today's labs have been reviewed, and there has been an increase in patient's white blood cell count up to 16.9, hemoglobin is 11.3, sodium is 139, potassium is 4.5, chloride is 114, CO2 is 16, BUN of 27, creatinine is 1.41. IV fluids infusing at a rate of 1:30 ML per hour, patient has been nothing by mouth in view of his decreased level of cons ciousness, his had limited oral intake, his urine output has been in the order of 25-30 ML per hour. On 04/04/2021 patient seen in follow-up in the intensive care unit, he remains poorly responsive, breathing spontaneously, he is currently on 11 L per high flow nasal cannula, his pulse ox is 91-97%, he sounds less bronchospastic on today's exam, lung sounds reveal diffuse rhonchi, and some scattered wheezes. Febrile overnight, hemodynamically has been stable, he remains on 0.9 normal saline at a rate of 1:30 ML per hour, his been kept nothing by mouth in view of his decreased level of consciousness. His CODE STATUS is DO NOT RESUSCITATE, no new chest x-ray today, yesterday's chest x-ray showed new extensive airspace disease in the right upper and right midlung zone and left basilar pleural parenchymal disease. Possibility of aspiration pneumonia is suspected, his antibiotic was switched to Zosyn. His white blood cell count is improving on today's labs. He is not able to produce a sputum specimen for culture, his blood cultures have been negative thus far. He is less tachycardic, he is in sinus mechanism with a controlled rate, he was started on steroids and breathing treatments, DVT and GI prophylaxis. Remains on CIWA protocol, received 2 mg of Ativan this morning. Remains calm, not opening eyes to verbal or tactile stimulation. On 04/05/2021 patient seen in follow-up in the intensive care unit, this morning his mentation is still Altered, he is poorly responsive, breathing spontaneously, he is on 15 L of oxygen per high flow nasal cannula with O2 sat of 90-94%, patient has been afebrile, hemodynamically he is been stable, he is actually a bit hypertensive this morning, with a blood pressure of 170/91. He remains on 0.9 normal saline at 130 ML per hour, and he is significantly in positive fluid balance. He is lethargic, he has not been able to clear any se cretions, lung sounds reveal diffuse rhonchi, this chest x-ray shows diffuse bilateral opacities with interval worsening, left lower lobe collapse, small left pleural effusion slightly increased in size compared to prior. No pneumothorax. She remains on IV steroids, nebulized bronchodilators, and Zosyn. Remains on CIWA protocol. His CIWA scale is 8 or 9, he did receive 1 dose of Ativan early this morning. Hospice and palliative care consultation was placed after discussing chest condition with the patient's nephew Og, who agreed to hospice. For now patient continues on supportive treatment. 04/06/2021, the patient is being seen in follow-up. This is an alcoholic 70-year-old patient with known history of chronic alcoholic liver disease and chronic debility who presented with hypoxic respiratory failure, altered mental status and aspiration pneumonia. The patient is still doing poorly. He remains on 15 L of oxygen by nasal cannula and is also on 100% nonrebreather facemask.. He remains on IV Zosyn. Hemodynamically stable. Quite lethargic. He remains on CIWA protocol. The patient is receiving supportive care in the ICU in preparation for hospice care at which the patient's family agreed regarding his advanced and debilitated condition. This morning, the patient continues to move 1. Unresponsive. Chest x-rays showing diffuse but the pulmonary infiltrates, there is right upper lobe pulmonary infiltrate in addition to extensive infiltration of the left lung with questionable left apical pneumothorax. There is an average seen in the periphery of the left up per lobe which obviously raises the concern for pneumothorax. Meanwhile, the patient remains on IV Zosyn for now. Blood cultures of been negative. On the blood work today white cell count is 21 which is higher compared to yesterday and the sodium level is up to 148 with a serum bicarb of 17 and a creatinine of 1.3. IV fluids are in the form of 0.9 at the rate of 20 mL an hour. 04/07/2021, the patient remains extremely lethargic, nonresponsive, he continues to moan, may withdraw to deep painful stimulation and grimaces to deep painful stimulation. Cannot hold a conversation. Still 100% nonrebreather facemask. His ammonia level was low. CAT scan of the brain that was done on 04/01/2021 showed chronic atrophy. No acute abnormalities were seen on the CAT scan of the brain. Meanwhile, the patient continues to be altered neurologically. At the same time, the patient's is having an acute hypoxic respiratory failure with diffuse but the pulmonary infiltrates with upper lobe predominance and a developing left sided pleural effusion. The patient is suspected to have aspiration. The patient is on IV Zosyn. Possibility of an acute lung injury cannot be completely excluded. There was a questionable pneumothorax on yesterday'sx, not seen on today's chest x-ray. I further note, they patient's sodium level is up to 151 and his potassium level is at 5.1. The patient also has developed an acute kidney injury and creatinine is at 1.4 with a BUN of 43. Note that this creatinine is slightly improved compared to the initial creatinine, admission which was at 1.8. There may be a component of chronic kidney disease. His white cell count is currently at 23 which is slightly h igher compared to yesterday. As such, the patient remains encephalopathy worsening hypoxemic respiratory failure. He remains on IV Zosyn. He remains on IV fluid with normal saline at the rate of 75 mL an hour. He remains on IV Solu Medrol 60 mg every 6 hours. He is on DuoNeb nebulized treatments around the clock. He has not received any Ativan overnight. He remains on IV Protonix 04/08/2021, the patient continues to moan. He mumbles. He is speaking a few sentences. He can follow simple commands. He is extremely lethargic and weak. I with a slightly more alert compared to yesterday. He remains on a 1 cm facemask in addition to high flow oxygen. Chest x-ray remained unchanged with diffuse bilateral pulmonary infiltrates and a left-sided pleural effusion. He remains on IV Zosyn. His sodium level is elevated at 150s. The patient is on D5 water. Creatinine is up to 1.8. He is holding his own blood pressure. Hemodynamically stable. Urine output is in order of 100 mL an hour. Her activity. No other issues for now. He remains nothing by mouth. He remains on IV Protonix. Blood work shows a sodium of 150 with a potassium of 3.7. Serum bicarb is at 18. BNP is 3 with a creatinine of 1.8. LFTs remained abnormal. White cell count is at 24.1. 04/09/2021, I'm seeing this patient for a follow-up. I would say he is doing slow progress in terms of his mentation. He remains extremely lethargic, at times agitated, sees most of the time of mumbles and moans constantly. Nevertheless, when asked simple questions such as moving his toes or hands, he would comply. He has a very weak grasp using his hands. Unable to raise his arms against gravity. He is trying to speak. We can sometimes understand few words. For the most part, his speech is still garbled. No seizure activity. No neck stiffness. No fever. No aspiration. He remains nothing by mouth. He remains on D5 water at the rate of 150 mL an hour and his sodium level is down to 143. His BUN is a 53 with a creatinine of 1.9 and this is essentially stable compared to yesterday. His urine output is in order of 30 mL an hour. His white cell count is down to 13.4. As for his follow-up chest x-ray from today, there are some improvement in the volume status and infiltration. There is still diffuse interstitial and perihilar infiltrate and a left-sided pleural effusion. There is also increased opacity in the right lung base consistent with pneumonia. The overall picture is consistent with pneumonia with possibly component of CHF. His ammonia level has been low. Overnight, he became more agitated. He received a dose of Haldol around 9 PM. Subsequently because of increased agitation, he was briefly placed on Precedex which made him hypotensive and bradycardic and this was discontinued. Since then, the patient has not required any further sedatives. Earlier this morning, I took him off the nonrebreather facemask. He is on high flow oxygen at 15 L and his pulse ox is currently ranging at around 88-89%. Most recent BP is 80/53. No significant tachycardia. Cardiac rhythm is sinus. No tachypnea. No symptoms to swelling in lower extremities. 04/10/2021, the patient is much more awake and communicating and following commands and answering questions appropriately. He is not taking any sedative medications. Is gradually recovering. Mentation. He is lethargic but he is obviously awake and alert and following commands and answering questions appropriately. He is also having a bedside swallow evaluation and according to the therapist is able to swallow appropriately. Was taken off the 100% nonrebreather facemask and the patient is currently on a oxygen by nasal cannula high flow at 10 L. The patient is still IV fluids with D5 water at the rate of 75 mL an hour. Sodium level is at 144. Creatinine is at 50 with a creatinine of 1.9. Serum bicarb is a 16. White cell count and 16 with a hemoglobin of 9.4. Platelets at 197. The follow-up chest exit needs to be done today. In terms of medication, the patient is on Lovenox 40 mg subcu for DVT prophylaxis. IV Zosyn regarding aspiration pneumonia. He is also taking DuoNeb nebulized treatments around the clock. No other significant events otherwise for now. He is quite pleasant. 04/11/2021, the patient is on 8 L of oxygen by nasal cannula. Remains alert and awake. Hemodynamically stable. Afebrile. No respiratory difficulties. Tolerating his diet. His blood work shows some ongoing issues with some non- anion gap metabolic acidosis.. The serum bicarbonate remains low at 19. Meanwhile, the renal function is stable with a creatinine of 1.8. Sodium is at 140. His CBC showed white cell count 17.2 with hemoglobin of 9.4. Note that the patient is still coagulopathic related to his chronic alcoholic liver disease. INR was at 2 with a PT of 19.2 suggestive of chronic hepatic dysf unction. No signs of encephalopathy. No signs of any fluid overload. He is on DuoNeb nebulized treatments around the clock. He remains on Aredia prophylaxis. He is also on IV Zosyn. The chest x-ray in comparison was done yesterday and it showed some interval improvement in the bilateral pulmonary infiltrates which we assume it's related to aspiration pneumonia. There is still some left-sided pleural effusion and patchy perihilar pulmonary infiltrates in addition to bibasilar pulmonary infiltrates. Objective - Vital Signs Vital signs: Vital Signs Temp 97.0 F L 04/11/21 08:00 Pulse 82 04/11/21 09:00 Resp 20 04/11/21 09:00 BP 129/85 04/11/21 09:00 Pulse Ox 93 L 04/11/21 09:00 Intake & Output 04/10/21 04/11/21 04/11/21 18:59 06:59 18:59 Intake Total 915 1100 400 Output Total 375 330 50 Balance 540 770 350 Weight 95.3 kg 96.9 kg Intake: IV 675 600 100 Dextrose 5% in Water 1, 75 000 ml @ 75 mls/hr IV . [id number] [facility] Rx#:[id number] Piperacillin-Tazobactam 3 100 .375 gm In Sodium Chloride 0.9% 100 ml @ 25 mls/hr IVPB Q8H [facility] Rx#: [id number] Sodium Chloride 0.9% 1, 500 600 100 000 ml @ 50 mls/hr IV . Q20H [facility] Rx#:[id number] Intake, IV Titration 100 Amount Piperacillin-Tazobactam 3 100 .375 gm In Sodium Chloride 0.9% 100 ml @ 25 mls/hr IVPB Q8H [facility] Rx#: [id number] Oral 240 400 300 Output: Urine 375 330 50 Other: Voiding Method Indwelling Catheter Indwelling Catheter Indwelling Catheter - Exam GENERAL EXAM: poorly responsive, 70-year-old white male, 8L of oxygen pulse ox of 92%, comfortable no signs of any respiratory distress HEAD: Normocephalic/atraumatic. EYES: Normal reaction of pupils, equal size. Conjunctiva pink, sclera white. NOSE: Clear with pink turbinates. THROAT: No erythema or exudates. NECK: No masses, no JVD, no thyroid enlargement, no adenopathy. CHEST: No chest wall deformity. Symmetrical expansion. LUNGS: Equal air entry with diffuse rhonchi, minimal wheezes CVS: Regular rate and rhythm, normal S1 and S2, no gallops, no murmurs, no rubs ABDOMEN: Soft, nontender. No hepatosplenomegaly, normal bowel sounds, no guarding or rigidity. EXTREMITIES: No clubbing, no edema, no cyanosis, 2+ pulses and upper and lower extremities. MUSCULOSKELETAL: Muscle strength and tone normal. SPINE: No scoliosis or deformity SKIN: No rashes CENTRAL NERVOUS SYSTEM: The patient is following commands and he is alert and oriented 3. There is generalized global weakness. There are also some minimal tremors. Nevertheless, he is not showing any focal neurological deficits. He has a good cough. He was recorded reactive to light. No encephalopathy. - Labs CBC & Chem 7: 04/11/21 03:28 04/11/21 03:28 Labs: Abnormal Lab Results - Last 24 Hours (Table) 04/10/21 04/10/21 04/11/21 Range/Units 09:51 11:54 03:28 WBC 17.2 H (3.8-10.6) k/uL RBC 2.71 L (4.30-5.90) m/uL Hgb 9.4 L (13.0-17.5) gm/dL Hct 30.0 L (39.0-53.0) % MCV 110.7 H (80.0-100.0) fL RDW 19.4 H (11.5-15.5) % Macrocytosis Marked A PT 19.2 H (9.0-12.0) sec INR 2.0 H (<1.2) Chloride (98-107) mmol/L Carbon Dioxide (22-30) mmol/L BUN (9-20) mg/dL Creatinine (0.66-1.25) mg/dL POC Glucose (mg/dL) 101 H (75-99) mg/dL Total Bilirubin (0.2-1.3) mg/dL AST (17-59) U/L Alkaline Phosphatase (38-126) U/L Total Protein (6.3-8.2) g/dL Albumin (3.5-5.0) g/dL 04/11/21 Range/Units 03:28 WBC (3.8-10.6) k/uL RBC (4.30-5.90) m/uL Hgb (13.0-17.5) gm/dL Hct (39.0-53.0) % MCV (80.0-100.0) fL RDW (11.5-15.5) % Macrocytosis PT (9.0-12.0) sec INR (<1.2) Chloride 116 H (98-107) mmol/L Carbon Dioxide 19 L (22-30) mmol/L BUN 48 H (9-20) mg/dL Creatinine 1.87 H (0.66-1.25) mg/dL POC Glucose (mg/dL) (75-99) mg/dL Total Bilirubin 4.0 H (0.2-1.3) mg/dL AST 98 H (17-59) U/L Alkaline Phosphatase 610 H (38-126) U/L Total Protein 4.9 L (6.3-8.2) g/dL Albumin 2.2 L (3.5-5.0) g/dL Assessment and Plan Plan: #1. Altered mental status, multifactorial, related to acute EtOH withdrawal, and bilateral pneumonia, and metabolic encephalopathy which ultimately recovered and the patient is gradually improved over the past 24-48 hours and this morning is awake and oriented 3. #2 Alcoholism #3. Acute hypoxic respiratory failure secondary to possibility of aspiration related to pneumonia, chest x-ray findings are consistent with diffuse bilateral pulmonary infiltrates with upper lobe predominance and a left-sided pleural effu karri overall chest x-ray picture is improving with the film that was done on 04/10/2021 and the patient is currently on 8 L of oxygen by nasal cannula. #4. Coagulopathy suspect secondary to liver disease #5. Acute kidney injury related to ATN, and is stable at 1.8 , along with Non- anion gap metabolic acidosis #6. Hypertension #7. Poor nutritional status related to chronic alcoholism #8. Chronic alcoholic liver disease with secondary ascites \ #9 hyperchloremic hypernatremia, recovered with a white cell count today, #10 leukocytosis, improving # 11 cholestatic pattern on his liver function tests, likely secondary to chronic alcoholism Plan: Check ultrasound the liver, rule out biliary obstruction Monitor LFTs Repeat coagulation profile and ammonia level in a.m. Check hepatitis profile if not done already Obtain a GI consultation Start the patient on oral bicarbonate IV fluids to KVO and advance diet Continue IV Zosyn Wean off FiO2 as tolerated. Saturation above 90% Repeat chest x-ray in the morning May transfer to a medical floor at a later stage.
[2021-04-11 10:03] LABS: Albumin 2.1 g/dL (3.5-5.0); Bilirubin, Conjugated 1.2 mg/dL (0.0-0.3); Bilirubin, Delta 1.3 mg/dL (0.0-0.2); Bilirubin,Unconjugated 1.3 mg/dL (0.0-1.1); Total Bilirubin 3.8 mg/dL (0.2-1.3); Total Protein 4.8 g/dL (6.3-8.2)
--- NOTE | 2021-04-11 10:27 | US ---
EXAMINATION TYPE: US gallbladder DATE OF EXAM: 04/11/2021 COMPARISON: 04/02/2021 ct CLINICAL HISTORY: abdominal pain, ascites. EXAM MEASUREMENTS: Liver Length: 18.3 cm Gallbladder Wall: 0.3 cm CBD: 0.6 cm Right Kidney: 12.5 x 5.8 x 6.4 cm Technically difficult study performed portably on ICU patient unable to move. Pancreas: Obscured by bowel gas Liver: enlarged, heterogeneous echotexture Gallbladder: no stones seen, appears full of sludge. Evidence for sonographic Calderon's sign: Yes CBD: measures 0.6 cm Right Kidney: No hydronephrosis or masses seen Mild ascites is noted surrounding liver. IMPRESSION: 1. Gallbladder appears to be filled with sludge . CBD measures at the upper limits of normal at 6 mm. 2. Heterogeneous pattern to the liver can be associated with hepatocellular disease correlate clinica lly. 3. Mild ascites.
[2021-04-11 11:49] LABS: Glucose,Whole Blood 94 mg/dL (75-99)
--- NOTE | 2021-04-11 18:57 | P.PN ---
Subjective This is a pleasant 70 years old male with past medical history of hypertension. He is a patient of Dr. Pro He was admitted on 04/01 secondary to fall after he tripped over a plastic back. Also reports multiple falls recently. Alcohol withdrawal seizure is suspected by PCP associated with left lower lobe infiltrate, although reports of occas ional drinking. He is been followed by neurology service for toxic metabolic encephalopathy with electrolyte imbalance. He was placed on CIWA protocol. Patient was transferred to the ICU for possible seizure.. Patient also was hypoxic he didn't tolerate her off oxygen and wheezing. He is currently kept in the ICU on BiPAP machine with a setting of 12/5 and FiO2 of 100% and he is tachypneic. With a breathing rate around 38 breath per minute He could not provide information because he is on BiPAP. He is afebrile, and blood pressure is stable. He has mild leukocytosis of 12.5 but he is on steroids as well.creatinine has been trending from 1.8 down to 1.39 today. Liver enzymes not elevated. Bilirubin is normal Glucose controlled. Blood culture negative. Chest x-ray from yesterday showing Extensive airspace disease in the right upper and mid lung zone. Left basilar pleural parenchymal disease is again seen with possible deep sulcus and pneumothorax cannot be definitely excluded proCalcitonin is slightly elevated 0.31 Ultrasound of the abdomen showing ascites CT of the brain showing no acute process but cerebral atrophy. Patient currently kept also Medrol 60 mg, CIWA protocol, Zosynand a mean 04/05/2021 pt remains in the ICU , he was confused but gradually improved and today he is fully awake and oriented to time, place and person and he is oriented to his surroundings. He states that he smokes about half pack per day and he was consulted to quit and he agrees but he does not feel he needs nicotine patch Also used to drink 6. Today and 2 shots of liquor. His little tachypneic with no cough. No chest pain and has bilateral leg swelling, Lou catheter is in place Labs are reviewed: Showing leukocytosis of 17 K, a 10 is stable at 1.8. Bilirubin is elevated at 3.8 and INR is at 2.0 Because of his liver disease and elevated INR. Liver ultrasound and hepatitis p shivani ordered as well as GI consult He Is currently kept on Zosyn, normal saline at 50 mL per hour. Review of systems: N/a, and is currently confused and cannot provide information Active Medications Generic Name Dose Route Start Last Admin Trade Name Freq PRN Reason Stop Dose Admin Albuterol/Ipratropium 3 ml 04/03/21 12:00 04/05/21 07:56 Ipratropium-Albuterol 3 Ml Neb INHALATION 3 ml RT-QID [facility] Administration Albuterol/Ipratropium 3 ml 04/03/21 08:19 04/04/21 03:26 Ipratropium-Albuterol 3 Ml Neb INHALATION 3 ml RT-Q2H PRN Administration Shortness Of Breath Or Wheezing Budesonide 1 mg 04/03/21 20:00 04/05/21 07:56 Budesonide 1 Mg/2 Ml Nebu INHALATION 1 mg RT-BID [facility] Administration Enoxaparin Sodium 40 mg 04/01/21 09:00 04/05/21 08:46 Enoxaparin 40 Mg/0.4 Ml Syringe SQ 40 mg DAILY [facility]LE Administration Formoterol Fumarate 20 mcg 04/03/21 20:00 04/05/21 07:56 Formoterol Fumarate 20 Mcg/2 Ml Nebu INHALATION 20 mcg RT-BID [facility] Administration Haloperidol Lactate 5 mg 04/01/21 16:51 04/03/21 23:22 Haloperidol Lactate 5 Mg/Ml 1 Ml Vial IVP 5 mg Q6H PRN Administration Agitation or Acute Psychosis Piperacillin Sod/Tazobactam 100 mls @ 25 mls/hr 04/03/21 11:00 04/05/21 02:47 Sod 3.375 gm/ Sodium Chloride IVPB 25 mls/hr Q8H [facility] Administration Insulin Aspart 0 unit 04/02/21 00:00 04/05/21 05:17 Insulin Aspart (Novolog) 100 Unit/Ml Vial SQ Not Given Q6H [facility] Protocol Labetalol HCl 20 mg 04/05/21 08:30 04/05/21 08:47 Labetalol 5 Mg/Ml Vial Mdv IVP 20 mg Q4H [facility] Administration Lorazepam 1 mg 04/04/21 09:28 04/05/21 03:57 Lorazepam 2 Mg/Ml Inj IV 1 mg Q4HR PRN Administration CIWA 8 or 9 Lorazepam 1 mg 04/04/21 09:29 Lorazepam 2 Mg/Ml Inj IV Q4HR PRN CIWA 10 to 15 Methylprednisolone Sodium Succinate 60 mg 04/03/21 08:30 04/05/21 05:18 Methylprednisolone Sod Succi 125 Mg/2 Ml Vial IV 60 mg Q6HR [facility] Administration Miscellaneous Information 1 each 04/01/21 19:10 Potassium Replacement Protocol 1 Each Misc MISCELLANE DAILY PRN Per Protocol Protocol Miscellaneous Information 1 each 04/02/21 06:13 Potassium Replacement Protocol 1 Each Misc MISCELLANE DAILY PRN Per Protocol Protocol Naloxone HCl 0.2 mg 04/01/21 06:31 Naloxone 0.4 Mg/Ml 1 Ml Vial IV Q2M PRN Opioid Reversal Naloxone HCl 0.2 mg 04/01/21 06:38 Naloxone 0.4 Mg/Ml 1 Ml Vial IV Q2M PRN Opioid Reversal Ondansetron HCl 4 mg 04/01/21 06:38 Ondansetron 4 Mg/2 Ml Vial IVP Q8HR PRN Nausea And Vomiting Pantoprazole Sodium 40 mg 04/01/21 09:00 04/05/21 08:46 Pantoprazole 40 Mg/10 Ml Vial IV 40 mg DAILY [facility] Administration Thiamine HCl 100 mg 04/04/21 09:00 04/05/21 08:47 Thiamine 100 Mg/Ml 2 Ml Vial IVP 100 mg DAILY BELLE Administration Objective - Vital Signs Vital signs: Vital Signs Temp 97.0 F L 04/11/21 08:00 Pulse 92 04/11/21 11:35 Resp 21 04/11/21 10:00 BP 104/65 04/11/21 10:00 Pulse Ox 94 L 04/11/21 10:00 Intake & Output 04/10/21 04/11/21 04/11/21 18:59 06:59 18:59 Intake Total 915 1100 650 Output Total 375 330 110 Balance 540 770 540 Weight 95.3 kg 96.9 kg Intake: IV 675 600 200 Dextrose 5% in Water 1, 75 000 ml @ 75 mls/hr IV . [id number] [facility] Rx#:[id number] Piperacillin-Tazobactam 3 100 .375 gm In Sodium Chloride 0.9% 100 ml @ 25 mls/hr IVPB Q8H [facility] Rx#: [id number] Sodium Chloride 0.9% 1, 500 600 200 000 ml @ 50 mls/hr IV . Q20H [facility] Rx#:[id number] Intake, IV Titration 100 Amount Piperacillin-Tazobactam 3 100 .375 gm In Sodium Chloride 0.9% 100 ml @ 25 mls/hr IVPB Q8H [facility] Rx#: [id number] Oral 240 400 450 Output: Urine 375 330 110 Other: Voiding Method Indwelling Catheter Indwelling Catheter Indwelling Catheter - Exam GENERAL: The patient is awake and alert 3, not in any acute distress. Well developed, well nourished. HEENT: Pupils are round and equally reacting to light. EOMI. No scleral icterus. No conjunctival pallor. Normocephalic, atraumatic. No pharyngeal erythema. No thyromegaly. CARDIOVASCULAR: S1 and S2 present. No murmurs, rubs, or gallops. -PULMONARY: Chest is clear to auscultation, no crackles. Bilateral scattered wheezing. Patient is a slightly tachypneic Gastrointestinal: Soft, None-tender, nondistended, normoactive bowel sounds. No palpable organomegaly. MUSCULOSKELETAL: No joint swelling or deformity. EXTREMITIES: No cyanosis, clubbing, or pedal edema. NEUROLOGICAL: Gross neurological examination did not reveal any focal deficits. SKIN: No rashes. no petechiae. - Labs CBC & Chem 7: 04/11/21 03:28 04/11/21 03:28 Labs: Abnormal Lab Results - Last 24 Hours (Table) 04/11/21 04/11/21 04/11/21 Range/Units 03:28 03:28 03:28 WBC 17.2 H (3.8-10.6) k/uL RBC 2.71 L (4.30-5.90) m/uL Hgb 9.4 L (13.0-17.5) gm/dL Hct 30.0 L (39.0-53.0) % MCV 110.7 H (80.0-100.0) fL RDW 19.4 H (11.5-15.5) % Macrocytosis Marked A Chloride 116 H (98-107) mmol/L Carbon Dioxide 19 L (22-30) mmol/L BUN 48 H (9-20) mg/dL Creatinine 1.87 H (0.66-1.25) mg/dL Total Bilirubin 4.0 H 3.8 H (0.2-1.3) mg/dL Conjugated Bilirubin 1.2 H (0.0-0.3) mg/dL Unconjugated Bilirubin 1.3 H (0.0-1.1) mg/dL Delta Bilirubin 1.3 H (0.0-0.2) mg/dL AST 98 H 97 H (17-59) U/L Alkaline Phosphatase 610 H 618 H (38-126) U/L Total Protein 4.9 L 4.8 L (6.3-8.2) g/dL Albumin 2.2 L 2.1 L (3.5-5.0) g/dL Assessment and Plan Assessment: Aspiration pneumonia alcohol withdrawal, improving Toxic/metabolic encephalopathy with altered mental status. Improved and patient is back to his baseline Alcoholic liver disease Coagulopathy secondary to liver disease Hypertension Recurrent falls on admission Acute hypoxic respiratory failure secondary to above Mostly alcoholic liver disease with ascites Plan: This is a pleasant 70 years old male who presents with aspiration pneumonia, alcoholic liver disease and possible withdrawal seizure Continue with her vitamins and CIWA protocols. No need for seizure medication. Neurology on the case Continue with Zosyn and monitor breathing patient kept in the ICU, with pulmonary/critical care team on the case. Labs and medication were reviewed.. Continue same treatment. Continue with symptomatic treatment. Resume home medication. Monitor lytes and vitals. DVT and GI prophylaxis. Further recommendations as per clinical course of the patient DVT prophylaxis: No anticoagulation for cardiac GI Prophylaxis: Ppi Prognosis is guarded Dr. rPo resume the care of the patient tomorrow
[2021-04-11] MEDS: SODIUM BICARBONATE TAB 650 MG TAB PO SCH (20:54)
[2021-04-12] MEDS: PIPERACILLIN-TAZOBACTAM 3.375 GM in SODIUM CHLORIDE 0.9% 100 ML IVPB SCH ×3 (00:29→16:45)
[2021-04-12 05:19] LABS: INR 1.5 (<1.2)
[2021-04-12] MEDS: IPRATROPIUM-ALBUTEROL 3 ML NEB INHALATION SCH ×4 (06:50→18:56)
--- NOTE | 2021-04-12 07:14 | XR ---
EXAMINATION TYPE: XR chest 1V portable DATE OF EXAM: 04/12/2021 COMPARISON: 04/10/2021 HISTORY: Shortness of breath TECHNIQUE: Single frontal view of the chest is obtained. FINDINGS: Heart size is stable and there is bilateral areas of diffuse infiltrate and small effusion . Chronic rib deformities are seen. No pneumothorax. Arthropathy shoulders with chronic deformity lef t clavicle suggestive of remote trauma. IMPRESSION: Multifocal areas of infiltrate and small effusion stable and unchanged.
[2021-04-12] MEDS: SODIUM BICARBONATE TAB 650 MG TAB PO SCH ×2 (08:16→21:12)
[2021-04-12] MEDS: ENOXAPARIN 40 MG/0.4 ML SYRINGE SQ SCH (08:16)
[2021-04-12] MEDS: THIAMINE 100 MG TAB PO SCH (08:16)
[2021-04-12] MEDS: PANTOPRAZOLE 40 MG/10 ML VIAL IV SCH (08:16)
--- NOTE | 2021-04-12 09:52 | P.PN ---
Subjective Progress Note Date: 04/12/21 This is a 70-year-old male patient with a history of hypertension and alcohol abuse. He did have an ongoing weakness and falls at home. He had been drinking daily and not eating much. He presented to the emergency room yesterday with shortness of breath and feelings of dehydration. X-ray of the left hip revealed no fracture. X-ray of the pelvis reveals no fracture. X-ray of the abdomen revealed nonacute abdomen. No free air. Computed tomography scan of the brain revealed cerebral atrophy. No acute intracranial abnormalities. Chest x-ray revealed left greater than right bibasilar pleural parenchymal disease. He was admitted to the regular medical floor. Last evening approximately 5:30 the patient was found on the floor lethargic and minimally responsive. He was only arousing to loud questions. ABGs, chest x-ray and labs were drawn. He was given IV Lasix and transferred to the intensive care unit for concerns regarding possible seizure. He is seen today in consultation. He is currently resting in bed. He is barely arousable. He is mumbling. He is maintaining O2 saturations in the 90s on 4 L/m per nasal cannula. He does have 0.9 normal saline at 130 mL by mouth per hour. Suspect alcohol withdrawal syndrome. He is on the CIWA protocol. Abdomen is distended. He is currently on ceftriaxone and azithromycin. Lovenox for DVT prophylaxis. Haldol for agitation. Thiamine. ABGs revealed a pO2 of 78, pCO2 22, pH 7.46 on 32% FiO2. White count 8.1. Hemoglobin 9.9. MCV 108.9. Platelets 263. Sodium 136. Potassium 3.2. Creatinine 1.58. ProBNP 3300. Troponin negative. Serum alcohol level was less than 10. INR 2.5. On 04/03/2021 patient seen in follow-up in the intensive care unit. He is short of breath, and audibly wheezy during today's exam, he is on 10 L of oxygen this morning, with a pulse ox of 93-95%, he is currently on 0.9 normal saline at a ra te of 1:30 ML per hour, he remains on CIWA protocol for acute alcohol withdrawal, he received a total of 6 mg of Ativan overnight in addition to haldol. he is confused, he is lethargic, he is not following commands. Lung sounds reveal equal air entry bilaterally, with diffuse wheezing throughout.rem ains on antibiotics in the combination of Zithromax and Rocephin, we added back pain treatments and IV steroids this morning. today's chest x-ray shows new extensive airspace disease in the right upper and mid lung zone, left basilar pleural parenchymal disease was again seen with possible deep sulcus and pneumothorax could not be definitely excluded. today's labs have been reviewed, and there has been an increase in patient's white blood cell count up to 16.9, hemoglobin is 11.3, sodium is 139, potassium is 4.5, chloride is 114, CO2 is 16, BUN of 27, creatinine is 1.41. IV fluids infusing at a rate of 1:30 ML per hour, patient has been nothing by mouth in view of his decreased level of cons ciousness, his had limited oral intake, his urine output has been in the order of 25-30 ML per hour. On 04/04/2021 patient seen in follow-up in the intensive care unit, he remains poorly responsive, breathing spontaneously, he is currently on 11 L per high flow nasal cannula, his pulse ox is 91-97%, he sounds less bronchospastic on today's exam, lung sounds reveal diffuse rhonchi, and some scattered wheezes. Febrile overnight, hemodynamically has been stable, he remains on 0.9 normal saline at a rate of 1:30 ML per hour, his been kept nothing by mouth in view of his decreased level of consciousness. His CODE STATUS is DO NOT RESUSCITATE, no new chest x-ray today, yesterday's chest x-ray showed new extensive airspace disease in the right upper and right midlung zone and left basilar pleural parenchymal disease. Possibility of aspiration pneumonia is suspected, his antibiotic was switched to Zosyn. His white blood cell count is improving on today's labs. He is not able to produce a sputum specimen for culture, his blood cultures have been negative thus far. He is less tachycardic, he is in sinus mechanism with a controlled rate, he was started on steroids and breathing treatments, DVT and GI prophylaxis. Remains on CIWA protocol, received 2 mg of Ativan this morning. Remains calm, not opening eyes to verbal or tactile stimulation. On 04/05/2021 patient seen in follow-up in the intensive care unit, this morning his mentation is still Altered, he is poorly responsive, breathing spontaneously, he is on 15 L of oxygen per high flow nasal cannula with O2 sat of 90-94%, patient has been afebrile, hemodynamically he is been stable, he is actually a bit hypertensive this morning, with a blood pressure of 170/91. He remains on 0.9 normal saline at 130 ML per hour, and he is significantly in positive fluid balance. He is lethargic, he has not been able to clear any se cretions, lung sounds reveal diffuse rhonchi, this chest x-ray shows diffuse bilateral opacities with interval worsening, left lower lobe collapse, small left pleural effusion slightly increased in size compared to prior. No pneumothorax. She remains on IV steroids, nebulized bronchodilators, and Zosyn. Remains on CIWA protocol. His CIWA scale is 8 or 9, he did receive 1 dose of Ativan early this morning. Hospice and palliative care consultation was placed after discussing chest condition with the patient's nephew Og, who agreed to hospice. For now patient continues on supportive treatment. 04/06/2021, the patient is being seen in follow-up. This is an alcoholic 70-year-old patient with known history of chronic alcoholic liver disease and chronic debility who presented with hypoxic respiratory failure, altered mental status and aspiration pneumonia. The patient is still doing poorly. He remains on 15 L of oxygen by nasal cannula and is also on 100% nonrebreather facemask.. He remains on IV Zosyn. Hemodynamically stable. Quite lethargic. He remains on CIWA protocol. The patient is receiving supportive care in the ICU in preparation for hospice care at which the patient's family agreed regarding his advanced and debilitated condition. This morning, the patient continues to move 1. Unresponsive. Chest x-rays showing diffuse but the pulmonary infiltrates, there is right upper lobe pulmonary infiltrate in addition to extensive infiltration of the left lung with questionable left apical pneumothorax. There is an average seen in the periphery of the left up per lobe which obviously raises the concern for pneumothorax. Meanwhile, the patient remains on IV Zosyn for now. Blood cultures of been negative. On the blood work today white cell count is 21 which is higher compared to yesterday and the sodium level is up to 148 with a serum bicarb of 17 and a creatinine of 1.3. IV fluids are in the form of 0.9 at the rate of 20 mL an hour. 04/07/2021, the patient remains extremely lethargic, nonresponsive, he continues to moan, may withdraw to deep painful stimulation and grimaces to deep painful stimulation. Cannot hold a conversation. Still 100% nonrebreather facemask. His ammonia level was low. CAT scan of the brain that was done on 04/01/2021 showed chronic atrophy. No acute abnormalities were seen on the CAT scan of the brain. Meanwhile, the patient continues to be altered neurologically. At the same time, the patient's is having an acute hypoxic respiratory failure with diffuse but the pulmonary infiltrates with upper lobe predominance and a developing left sided pleural effusion. The patient is suspected to have aspiration. The patient is on IV Zosyn. Possibility of an acute lung injury cannot be completely excluded. There was a questionable pneumothorax on yesterday'sx, not seen on today's chest x-ray. I further note, they patient's sodium level is up to 151 and his potassium level is at 5.1. The patient also has developed an acute kidney injury and creatinine is at 1.4 with a BUN of 43. Note that this creatinine is slightly improved compared to the initial creatinine, admission which was at 1.8. There may be a component of chronic kidney disease. His white cell count is currently at 23 which is slightly h igher compared to yesterday. As such, the patient remains encephalopathy worsening hypoxemic respiratory failure. He remains on IV Zosyn. He remains on IV fluid with normal saline at the rate of 75 mL an hour. He remains on IV Solu Medrol 60 mg every 6 hours. He is on DuoNeb nebulized treatments around the clock. He has not received any Ativan overnight. He remains on IV Protonix 04/08/2021, the patient continues to moan. He mumbles. He is speaking a few sentences. He can follow simple commands. He is extremely lethargic and weak. I with a slightly more alert compared to yesterday. He remains on a 1 cm facemask in addition to high flow oxygen. Chest x-ray remained unchanged with diffuse bilateral pulmonary infiltrates and a left-sided pleural effusion. He remains on IV Zosyn. His sodium level is elevated at 150s. The patient is on D5 water. Creatinine is up to 1.8. He is holding his own blood pressure. Hemodynamically stable. Urine output is in order of 100 mL an hour. Her activity. No other issues for now. He remains nothing by mouth. He remains on IV Protonix. Blood work shows a sodium of 150 with a potassium of 3.7. Serum bicarb is at 18. BNP is 3 with a creatinine of 1.8. LFTs remained abnormal. White cell count is at 24.1. 04/09/2021, I'm seeing this patient for a follow-up. I would say he is doing slow progress in terms of his mentation. He remains extremely lethargic, at times agitated, sees most of the time of mumbles and moans constantly. Nevertheless, when asked simple questions such as moving his toes or hands, he would comply. He has a very weak grasp using his hands. Unable to raise his arms against gravity. He is trying to speak. We can sometimes understand few words. For the most part, his speech is still garbled. No seizure activity. No neck stiffness. No fever. No aspiration. He remains nothing by mouth. He remains on D5 water at the rate of 150 mL an hour and his sodium level is down to 143. His BUN is a 53 with a creatinine of 1.9 and this is essentially stable compared to yesterday. His urine output is in order of 30 mL an hour. His white cell count is down to 13.4. As for his follow-up chest x-ray from today, there are some improvement in the volume status and infiltration. There is still diffuse interstitial and perihilar infiltrate and a left-sided pleural effusion. There is also increased opacity in the right lung base consistent with pneumonia. The overall picture is consistent with pneumonia with possibly component of CHF. His ammonia level has been low. Overnight, he became more agitated. He received a dose of Haldol around 9 PM. Subsequently because of increased agitation, he was briefly placed on Precedex which made him hypotensive and bradycardic and this was discontinued. Since then, the patient has not required any further sedatives. Earlier this morning, I took him off the nonrebreather facemask. He is on high flow oxygen at 15 L and his pulse ox is currently ranging at around 88-89%. Most recent BP is 80/53. No significant tachycardia. Cardiac rhythm is sinus. No tachypnea. No symptoms to swelling in lower extremities. 04/10/2021, the patient is much more awake and communicating and following commands and answering questions appropriately. He is not taking any sedative medications. Is gradually recovering. Mentation. He is lethargic but he is obviously awake and alert and following commands and answering questions appropriately. He is also having a bedside swallow evaluation and according to the therapist is able to swallow appropriately. Was taken off the 100% nonrebreather facemask and the patient is currently on a oxygen by nasal cannula high flow at 10 L. The patient is still IV fluids with D5 water at the rate of 75 mL an hour. Sodium level is at 144. Creatinine is at 50 with a creatinine of 1.9. Serum bicarb is a 16. White cell count and 16 with a hemoglobin of 9.4. Platelets at 197. The follow-up chest exit needs to be done today. In terms of medication, the patient is on Lovenox 40 mg subcu for DVT prophylaxis. IV Zosyn regarding aspiration pneumonia. He is also taking DuoNeb nebulized treatments around the clock. No other significant events otherwise for now. He is quite pleasant. 04/11/2021, the patient is on 8 L of oxygen by nasal cannula. Remains alert and awake. Hemodynamically stable. Afebrile. No respiratory difficulties. Tolerating his diet. His blood work shows some ongoing issues with some non- anion gap metabolic acidosis.. The serum bicarbonate remains low at 19. Meanwhile, the renal function is stable with a creatinine of 1.8. Sodium is at 140. His CBC showed white cell count 17.2 with hemoglobin of 9.4. Note that the patient is still coagulopathic related to his chronic alcoholic liver disease. INR was at 2 with a PT of 19.2 suggestive of chronic hepatic dysf unction. No signs of encephalopathy. No signs of any fluid overload. He is on DuoNeb nebulized treatments around the clock. He remains on Aredia prophylaxis. He is also on IV Zosyn. The chest x-ray in comparison was done yesterday and it showed some interval improvement in the bilateral pulmonary infiltrates which we assume it's related to aspiration pneumonia. There is still some left-sided pleural effusion and patchy perihilar pulmonary infiltrates in addition to bibasilar pulmonary infiltrates. 04/12/2021, the patient is seen in a FU no active issues. His been downgraded and he is awaiting a medical floor bed. He is not having any respiratory distress. His pulse ox currently is at 94% on oxygen at 8 L. His chest x-ray from today is showing diffuse bilateral pulmonary infiltrates consistent with aspiration pneumonia. There is multifocal areas of infiltration and small effusions and overall infiltrates are essentially unchanged. Clinically however the patient is improving and oxygenation is improved. He remains on IV Zosyn. Is able to swallow without any aspiration. Mental status is normalized. Creatinine is also improving and is currently down to 1.8. Correlation profile is improving INR is down to 1.5 with a PT of 15. White cell count is down to 17.2. His se rum bicarb is at 19 consistent with non-anion gap metabolic acidosis. Bilirubin is at 8.8 with an alkaline phosphatase of 618 and AST of 97 with an ALT of 34. Serum albumin is at 2.1. Ultrasound of the gallbladder was done and the patient was found to have sludge in the gallbladder. Common bile duct was measuring 6 mm in size. Liver was consistent with cirrhosis and the patient had some mild ascites. The patient was seen by gastroenterology. Echo showed a preserved LV function with an ejection fraction of 50-55%. No evidence of any cardiomyopathy with valvular heart disease. Objective - Vital Signs Vital signs: Vital Signs Temp 97.6 F 04/12/21 08:00 Pulse 75 04/12/21 08:00 Resp 19 04/12/21 08:00 BP 132/85 04/12/21 08:00 Pulse Ox 94 L 04/12/21 08:00 Intake & Output 04/11/21 04/12/21 04/12/21 18:59 06:59 18:59 Intake Total 950 400 Output Total 350 450 Balance 600 -50 Weight 94.9 kg Intake: IV 200 Sodium Chloride 0.9% 1, 200 000 ml @ 50 mls/hr IV . Q20H [facility] Rx#:[id number] Intake, IV Titration 100 Amount Piperacillin-Tazobactam 3 100 .375 gm In Sodium Chloride 0.9% 100 ml @ 25 mls/hr IVPB Q8H [facility] Rx#: [id number] Oral 750 300 Output: Urine 350 450 Other: Voiding Method Indwelling Catheter Indwelling Catheter Indwelling Catheter - Exam GENERAL EXAM: poorly responsive, 70-year-old white male, 6L of oxygen pulse ox of 92%, comfortable no signs of any respiratory distress HEAD: Normocephalic/atraumatic. EYES: Normal reaction of pupils, equal size. Conjunctiva pink, sclera white. NOSE: Clear with pink turbinates. THROAT: No erythema or exudates. NECK: No masses, no JVD, no thyroid enlargement, no adenopathy. CHEST: No chest wall deformity. Symmetrical expansion. LUNGS: Equal air entry with diffuse rhonchi, minimal wheezes CVS: Regular rate and rhythm, normal S1 and S2, no gallops, no murmurs, no rubs ABDOMEN: Soft, nontender. No hepatosplenomegaly, normal bowel sounds, no guarding or rigidity. EXTREMITIES: No clubbing, no edema, no cyanosis, 2+ pulses and upper and lower extremities. MUSCULOSKELETAL: Muscle strength and tone normal. SPINE: No scoliosis or deformity SKIN: No rashes CENTRAL NERVOUS SYSTEM: The patient is following commands and he is alert and oriented 3. There is generalized global weakness. There are also some minimal tremors. Nevertheless, he is not showing any focal neurological deficits. He has a good cough. He was recorded reactive to light. No encephalopathy. - Labs CBC & Chem 7: 04/11/21 03:28 04/11/21 03:28 Labs: Abnormal Lab Results - Last 24 Hours (Table) 04/11/21 04/12/21 Range/Units 03:28 04:28 PT 15.0 H (9.0-12.0) sec INR 1.5 H (<1.2) Total Bilirubin 3.8 H (0.2-1.3) mg/dL Conjugated Bilirubin 1.2 H (0.0-0.3) mg/dL Unconjugated Bilirubin 1.3 H (0.0-1.1) mg/dL Delta Bilirubin 1.3 H (0.0-0.2) mg/dL AST 97 H (17-59) U/L Alkaline Phosphatase 618 H (38-126) U/L Total Protein 4.8 L (6.3-8.2) g/dL Albumin 2.1 L (3.5-5.0) g/dL Assessment and Plan Plan: #1. Altered mental status, multifactorial, related to acute EtOH withdrawal, and bilateral pneumonia, and metabolic encephalopathy which ultimately recovered and the patient is gradually improved over the past 24-48 hours and this morning is awake and oriented 3. #2 Alcoholism #3. Acute hypoxic respiratory failure secondary to possibility of aspiration related to pneumonia, chest x-ray findings are consistent with diffuse bilateral pulmonary infiltrates with upper lobe predominance and a left-sided pleural effusion overall chest x-ray picture is improving with the film that was done on 04/10/2021 and the patient is currently on 6 L of oxygen by nasal cannula. Extubated on 04/12/2021 still showing multifocal bilateral pulmonary infiltrates yet clinically the patient is feeling better and the patient oxidation is also improved. #4. Coagulopathy suspect secondary to liver disease, improved #5. Acute kidney injury related to ATN, and is stable at 1.8 , along with Non- anion gap metabolic acidosis #6. Hypertension #7. Poor nutritional status related to chronic alcoholism #8. Chronic alcoholic liver disease with secondary ascites \ #9 hyperchloremic hypernatremia, recovered #10 leukocytosis, improving # 11 gallbladder sludge without evidence of any, bile duct obstruction. Alkaline phosphatase is mildly elevated along with some elevated bilirubin, consistent with cholestatic picture. This is probably nonobstructive cholestasis. It was associated Plan: Check ultrasound the liver, was noted. No biliary obstruction. Monitor LFTs Repeat coagulation profile is improving and ammonia level is < 9 Check hepatitis profile , pending Obtain a GI consultation Start the patient on oral bicarbonate IV fluids to KVO and advance diet Continue IV Zosyn Wean off FiO2 as tolerated. Saturation above 90% Transferred to medical floor
--- NOTE | 2021-04-12 14:22 | CONS ---
CONSULTATION DATE OF SERVICE: 04/12/2021. REASON FOR CONSULTATION: Elevated LFTs and ascites. HISTORY OF PRESENT ILLNESS: The patient is a 70-year-old pleasant white male who was admitted to the hospital with altered mental status/metabolic encephalopathy, history of heavy alcohol abuse and he was drinking heavily until recent hospitalization. The patient has been in the intensive care unit for the last one week and overall he is gradually improving. He is more awake and alert today. Th reason we are consulted for elevated LFTs and ultrasound showing mild ascites. The patient has history of heavy alcohol abuse for more than 50 years duration. He has been drinking several pints of alcohol on a daily basis. He was noted to have elevated LFTs with mild jaundice during this hospitalization. He had an ultrasound done yesterday that showed a small amount of gallbladder sludge and slightly dilated common bile duct and heterogeneous pattern of the liver consistent with hepatocellular disease. The patient denies any abdominal pain. He does complain of some abdominal distention. He reports no nausea, vomiting. No rectal bleeding or melena. As per the nursing staff, his oral intake has been somewhat poor. He was going through alcohol withdrawal but appears to be subsided. PAST MEDICAL HISTORY: Significant for heavy alcohol abuse. MEDICATIONS: Medications at home none no known drug allergies. SOCIAL HISTORY: Chronic smoker, heavy alcohol abuse. FAMILY HISTORY: Unremarkable. REVIEW OF SYSTEMS: CARDIOPULMONARY: He denies any chest pain or shortness of breath. : No dysuria or hematuria. MUSCULOSKELETAL: Unremarkable. NEUROLOGY: Unremarkable. CONSTITUTIONAL: Weight loss of about 15 pounds. No fever, chills, night sweats. HEMATOLOGY: Unremarkable. PSYCHIATRIC: Unremarkable. PHYSICAL EXAMINATION: He appears comfortable. Remains in the intensive care unit. VITAL SIGNS: Stable, blood pressure is 112/85, pulse rate 90, temperature 97.6. HEENT: Examination unremarkable. Conjunctivae pink. Sclerae anicteric. Oral cavity no lesions. NECK: No JVD or lymph node enlargement. CHEST: Clear to auscultation. HEART: Regular rate and rhythm. ABDOMEN: Soft, bowel sounds are positive. It was slightly distended. There was some ascitic fluid noted. EXTREMITIES: No pedal edema. NEURO: He is alert, oriented to name and place, not to time. LABS: From today WBC 17.2, hemoglobin 9.4, platelets 176. INR is 1.5. T-bilirubin is 3.8, AST 97, ALT 34, alkaline phosphatase is 618. T bilirubin at the time of admission the hospital was normal at 1.2, BUN is 48, creatinine 1.87. IMPRESSION: 1. Elevated LFTs and jaundice with a T-bilirubin of 3.8 all consistent with alcoholic liver disease. Patient with history of heavy alcohol abuse for the last 40 years duration. Ultrasound of the abdomen did show evidence of heterogeneous appearing liver consistent with hepatocellular disease. No evidence of biliary obstruction. 2. Ascites secondary to alcoholic cirrhosis of the liver with portal hypertension. There is no significant ascites currently. 3. Aspiration pneumonia on broad-spectrum antibiotics. 4. Acute alcohol withdrawal with severe altered mental status/coma. Patient gradually recovering and has been in the hospital for the last one week. 5. Elevated BUN and creatinine, for which nephrology following the patient. RECOMMENDATIONS: 1. In regard to the elevated LFTs, at this time we can continue to monitor them closely. 2. Obtain hepatitis serologies for A, B and C. 3. In regard to the ascites, will continue to monitor closely and there was no significant ascites for paracentesis at this time. We will hold off on diuretics because of elevated BUN and creatinine. 4. Continue symptomatic and supportive care. 5. Abstinence from alcohol. 6. Will follow with you closely. Thank you for this consultation. MMLISAL / CARLN: [id number] /
--- NOTE | 2021-04-12 19:14 | P.PN ---
Subjective This is a pleasant 70 years old male with past medical history of hypertension. He is a patient of Dr. Pro He was admitted on 04/01 secondary to fall after he tripped over a plastic back. Also reports multiple falls recently. Alcohol withdrawal seizure is suspected by PCP associated with left lower lobe infiltrate, although reports of occas ional drinking. He is been followed by neurology service for toxic metabolic encephalopathy with electrolyte imbalance. He was placed on CIWA protocol. Patient was transferred to the ICU for possible seizure.. Patient also was hypoxic he didn't tolerate her off oxygen and wheezing. He is currently kept in the ICU on BiPAP machine with a setting of 12/5 and FiO2 of 100% and he is tachypneic. With a breathing rate around 38 breath per minute He could not provide information because he is on BiPAP. He is afebrile, and blood pressure is stable. He has mild leukocytosis of 12.5 but he is on steroids as well.creatinine has been trending from 1.8 down to 1.39 today. Liver enzymes not elevated. Bilirubin is normal Glucose controlled. Blood culture negative. Chest x-ray from yesterday showing Extensive airspace disease in the right upper and mid lung zone. Left basilar pleural parenchymal disease is again seen with possible deep sulcus and pneumothorax cannot be definitely excluded proCalcitonin is slightly elevated 0.31 Ultrasound of the abdomen showing ascites CT of the brain showing no acute process but cerebral atrophy. Patient currently kept also Medrol 60 mg, CIWA protocol, Zosynand a mean 04/11/2021 (corrected date for his yesterday note) pt remains in the ICU , he was confused but gradually improved and today he is fully awake and oriented to time, place and person and he is oriented to his surroundings. He states that he smokes about half pack per day and he was consulted to quit and he agrees but he does not feel he needs nicotine patch Also used to drink 6. Today and 2 shots of liquor. His little tachypneic with no cough. No chest pain and has bilateral leg swelling, Lou catheter is in place Labs are reviewed: Showing leukocytosis of 17 K, a 10 is stable at 1.8. Bilirubin is elevated at 3.8 and INR is at 2.0 Because of his liver disease and elevated INR. Liver ultrasound and hepatitis panel ordered as well as GI consult He Is currently kept on Zosyn, normal saline at 50 mL per hour. 04/12/2021 Patient is fully awake and oriented to time, place and person, is sitting in chair oriented to the surrounding, calm, not in pain. He denies any specific complaint. His vitals are stable, still on 6 L/m of oxygen via high flow nasal cannula which is improvement from yesterday. His breathing is calmer today where yesterday he was more tachypneic. He is improvement regarding his infection while he is on Zosyn for his aspiration pneumonia. His liver disease most likely secondary to his extensive and prolonged alcohol use. There is no evidence of biliary obstruction and ultrasound of the liver however acute hepatitis panel is a still pending. Patient only with mild fluid overload, no need for paracentesis. His mentation is sound with him on a level is low. Historical He is improvement with lowering of INR to down to 1.5. Bilirubin is still elevated at 3.8, creatinine is stable at 1.8 which is most likely due to chronic kidney disease with possible hepatorenal disease. Leukocytosis also presents at 17 K. Patient currently kept on Zosyn. GI team evaluated the patient today per Critical care team patient, the tach patient can be downgraded related to general medical floor Objective - Vital Signs Vital signs: Vital Signs Temp 97.6 F 04/12/21 08:00 Pulse 88 04/12/21 15:14 Resp 19 04/12/21 08:00 BP 150/103 04/12/21 14:00 Pulse Ox 98 04/12/21 14:00 Intake & Output 04/11/21 04/12/21 04/12/21 18:59 06:59 18:59 Intake Total 950 400 Output Total 350 450 Balance 600 -50 Weight 94.9 kg Intake: IV 200 Sodium Chloride 0.9% 1, 200 000 ml @ 50 mls/hr IV . Q20H [facility] Rx#:[id number] Intake, IV Titration 100 Amount Piperacillin-Tazobactam 3 100 .375 gm In Sodium Chloride 0.9% 100 ml @ 25 mls/hr IVPB Q8H [facility] Rx#: [id number] Oral 750 300 Output: Urine 350 450 Other: Voiding Method Indwelling Catheter Indwelling Catheter Indwelling Catheter - Exam GENERAL: The patient is awake and alert 3, not in any acute distress. Well developed, well nourished. HEENT: Pupils are round and equally reacting to light. EOMI. No scleral icterus. No conjunctival pallor. Normocephalic, atraumatic. No pharyngeal erythema. No thyromegaly. CARDIOVASCULAR: S1 and S2 present. No murmurs, rubs, or gallops. -PULMONARY: Chest is clear to auscultation, no crackles. Bilateral scattered wheezing. Patient is a slightly tachypneic Gastrointestinal: Soft, None-tender, nondistended, normoactive bowel sounds. No palpable organomegaly. MUSCULOSKELETAL: No joint swelling or deformity. EXTREMITIES: No cyanosis, clubbing, or pedal edema. NEUROLOGICAL: Gross neurological examination did not reveal any focal deficits. SKIN: No rashes. no petechiae. - Labs CBC & Chem 7: 04/11/21 03:28 04/11/21 03:28 Labs: Abnormal Lab Results - Last 24 Hours (Table) 04/12/21 Range/Units 04:28 PT 15.0 H (9.0-12.0) sec INR 1.5 H (<1.2) Assessment and Plan Assessment: Aspiration pneumonia, improving alcohol withdrawal, improving Toxic/metabolic encephalopathy with altered mental status. Improved and patient is back to his baseline Alcoholic liver disease Coagulopathy secondary to alcoholic liver disease hyperbilirubinemia secondary to alcoholic liver disease, no evidence of infection. Hepatitis panel still pending to Hypertension Recurrent falls on admission Acute hypoxic respiratory failure secondary to above Mostly alcoholic liver disease with ascites Plan: This is a pleasant 70 years old male who presents with aspiration pneumonia, alcoholic liver disease and possible withdrawal seizure Continue with her vitamins and CIWA protocols. No need for seizure medication. Neurology on the case Continue with Zosyn and monitor breathing patient kept in the ICU, with pulmonary/critical care team on the case. Oxycodone diuretic to a general medical floor Follow-up hepatitis panel. GI team on the case Labs and medication were reviewed.. Continue same treatment. Continue with symptomatic treatment. Resume home medication. Monitor lytes and vitals. DVT and GI prophylaxis. Further recommendations as per clinical course of the patient DVT prophylaxis: No anticoagulation for cardiac GI Prophylaxis: Ppi Prognosis is guarded Dr. Pro resume the care of the patient tomorrow
[2021-04-13] MEDS: PIPERACILLIN-TAZOBACTAM 3.375 GM in SODIUM CHLORIDE 0.9% 100 ML IVPB SCH ×4 (00:05→23:54)
[2021-04-13] MEDS: IPRATROPIUM-ALBUTEROL 3 ML NEB INHALATION SCH ×4 (08:11→19:48)
[2021-04-13] MEDS: ENOXAPARIN 40 MG/0.4 ML SYRINGE SQ SCH (09:49)
[2021-04-13] MEDS: methylPREDNISolone SOD SUCCI 40 MG/ML 1 ML VIAL IV SCH ×2 (09:49→20:50)
[2021-04-13] MEDS: THIAMINE 100 MG TAB PO SCH (09:49)
[2021-04-13] MEDS: SODIUM BICARBONATE TAB 650 MG TAB PO SCH ×2 (09:49→20:50)
[2021-04-13] MEDS: FUROSEMIDE 10 MG/ML 4 ML VIAL IV SCH ×2 (09:50→20:50)
[2021-04-13] MEDS: PANTOPRAZOLE 40 MG/10 ML VIAL IV SCH (09:50)
--- NOTE | 2021-04-13 11:42 | P.PN ---
Subjective This is a pleasant 70 years old male with past medical history of hypertension. He is a patient of Dr. Pro He was admitted on 04/01 secondary to fall after he tripped over a plastic back. Also reports multiple falls recently. Alcohol withdrawal seizure is suspected by PCP associated with left lower lobe infiltrate, although reports of occas ional drinking. He is been followed by neurology service for toxic metabolic encephalopathy with electrolyte imbalance. He was placed on CIWA protocol. Patient was transferred to the ICU for possible seizure.. Patient also was hypoxic he didn't tolerate her off oxygen and wheezing. He is currently kept in the ICU on BiPAP machine with a setting of 12/5 and FiO2 of 100% and he is tachypneic. With a breathing rate around 38 breath per minute He could not provide information because he is on BiPAP. He is afebrile, and blood pressure is stable. He has mild leukocytosis of 12.5 but he is on steroids as well.creatinine has been trending from 1.8 down to 1.39 today. Liver enzymes not elevated. Bilirubin is normal Glucose controlled. Blood culture negative. Chest x-ray from yesterday showing Extensive airspace disease in the right upper and mid lung zone. Left basilar pleural parenchymal disease is again seen with possible deep sulcus and pneumothorax cannot be definitely excluded proCalcitonin is slightly elevated 0.31 Ultrasound of the abdomen showing ascites CT of the brain showing no acute process but cerebral atrophy. Patient currently kept also Medrol 60 mg, CIWA protocol, Zosynand a mean 04/11/2021 (corrected date for his yesterday note) pt remains in the ICU , he was confused but gradually improved and today he is fully awake and oriented to time, place and person and he is oriented to his surroundings. He states that he smokes about half pack per day and he was consulted to quit and he agrees but he does not feel he needs nicotine patch Also used to drink 6. Today and 2 shots of liquor. His little tachypneic with no cough. No chest pain and has bilateral leg swelling, Lou catheter is in place Labs are reviewed: Showing leukocytosis of 17 K, a 10 is stable at 1.8. Bilirubin is elevated at 3.8 and INR is at 2.0 Because of his liver disease and elevated INR. Liver ultrasound and hepatitis panel ordered as well as GI consult He Is currently kept on Zosyn, normal saline at 50 mL per hour. 04/12/2021 Patient is fully awake and oriented to time, place and person, is sitting in chair oriented to the surrounding, calm, not in pain. He denies any specific complaint. His vitals are stable, still on 6 L/m of oxygen via high flow nasal cannula which is improvement from yesterday. His breathing is calmer today where yesterday he was more tachypneic. He is improvement regarding his infection while he is on Zosyn for his aspiration pneumonia. His liver disease most likely secondary to his extensive and prolonged alcohol use. There is no evidence of biliary obstruction and ultrasound of the liver however acute hepatitis panel is a still pending. Patient only with mild fluid overload, no need for paracentesis. His mentation is sound with him on a level is low. Historical He is improvement with lowering of INR to down to 1.5. Bilirubin is still elevated at 3.8, creatinine is stable at 1.8 which is most likely due to chronic kidney disease with possible hepatorenal disease. Leukocytosis also presents at 17 K. Patient currently kept on Zosyn. GI team evaluated the patient today per Critical care team patient, the tach patient can be downgraded related to general medical floor 04/13/2021 This is a pleasant 70 years old male with alcoholic hepatitis, and decompensated and aspiration pneumonia. His oxygen requirement went up today slightly to 7 L/m, via high flow nasal cannula. However he is not that tachypneic breathing 16 breaths per minute. Also he has bilateral leg swelling. IV Lasix 40 mg twice daily was provided and Solu-Medrol 40 mg twice a day was restarted. Leukocytosis is secondary to steroid effect. No labs from today. No chest x- ray today. Patient is to continue with Zosyn, Solu-Medrol 40 mg twice daily at today. Objective - Vital Signs Vital signs: Vital Signs Temp 97.6 F 04/13/21 08:00 Pulse 84 04/13/21 08:23 Resp 18 04/13/21 08:00 BP 100/75 04/13/21 08:00 Pulse Ox 96 04/13/21 08:00 Intake & Output 04/12/21 04/13/21 04/13/21 18:59 06:59 18:59 Intake Total 100 100 Output Total 425 300 Balance -325 -200 Weight 98.1 kg 98.1 kg Intake: IV 100 Piperacillin-Tazobactam 3 100 .375 gm In Sodium Chloride 0.9% 100 ml @ 25 mls/hr IVPB Q8H [facility] Rx#: [id number] Intake, IV Titration 100 Amount Piperacillin-Tazobactam 3 100 .375 gm In Sodium Chloride 0.9% 100 ml @ 25 mls/hr IVPB Q8H [facility] Rx#: [id number] Output: Urine 425 300 Other: Voiding Method Indwelling Catheter Indwelling Catheter Indwelling Catheter - Exam GENERAL: The patient is awake and alert 3, not in any acute distress. Well developed, well nourished. HEENT: Pupils are round and equally reacting to light. EOMI. No scleral icterus. No conjunctival pallor. Normocephalic, atraumatic. No pharyngeal erythema. No thyromegaly. CARDIOVASCULAR: S1 and S2 present. No murmurs, rubs, or gallops. -PULMONARY: Chest is clear to auscultation, no crackles. Bilateral scattered wheezing. Patient is a slightly tachypneic Gastrointestinal: Soft, None-tender, nondistended, normoactive bowel sounds. No palpable organomegaly. MUSCULOSKELETAL: No joint swelling or deformity. EXTREMITIES: No cyanosis, clubbing, or pedal edema. NEUROLOGICAL: Gross neurological examination did not reveal any focal deficits. SKIN: No rashes. no petechiae. - Labs CBC & Chem 7: 04/11/21 03:28 04/11/21 03:28 Assessment and Plan Assessment: Aspiration pneumonia, improving slowly Possible elements of mild acute COPD exacerbation alcohol withdrawal, improving Toxic/metabolic encephalopathy with altered mental status. Improved and patient is back to his baseline Alcoholic liver disease Coagulopathy secondary to alcoholic liver disease hyperbilirubinemia secondary to alcoholic liver disease, no evidence of infect ion. Hepatitis panel still pending to Hypertension Recurrent falls on admission Acute hypoxic respiratory failure secondary to above Mostly alcoholic liver disease with ascites Plan: This is a pleasant 70 years old male who presents with aspiration pneumonia, alcoholic liver disease and possible withdrawal seizure Continue with salmeterol 40 mg and IV Lasix 40 mg Continue with Zosyn and monitor breathing patient kept in the ICU, with pulmonary/critical care team on the case. Continue with her vitamins and CIWA protocols. No need for seizure medication. Neurology on the case Follow-up hepatitis panel. GI team on the case Labs and medication were reviewed.. Continue same treatment. Continue with symptomatic treatment. Resume home medication. Monitor lytes and vitals. DVT and GI prophylaxis. Further recommendations as per clinical course of the patie nt DVT prophylaxis: No anticoagulation for cardiac GI Prophylaxis: Ppi Prognosis is guarded Dr. Pro resume the care of the patient tomorrow
[2021-04-13] MEDS ORDERED: traMADol 50 MG TAB PO PRN (12:17)
--- NOTE | 2021-04-13 12:29 | P.PN ---
Subjective Progress Note Date: 04/13/21 Principal diagnosis: Acute alcohol withdrawal and aspiration pneumonia This is a 70-year-old male patient with a history of hypertension and alcohol abuse. He did have an ongoing weakness and falls at home. He had been drinking daily and not eating much. He presented to the emergency room yesterday with shortness of breath and feelings of dehydration. X-ray of the left hip revealed no fracture. X-ray of the pelvis reveals no fracture. X-ray of the abdomen revealed nonacute abdomen. No free air. Computed tomography scan of the brain revealed cerebral atrophy. No acute intracranial abnormalities. Chest x-ray revealed left greater than right bibasilar pleural parenchymal disease. He was admitted to the regular medical floor. Last evening approximately 5:30 the patient was found on the floor lethargic and minimally responsive. He was only arousing to loud questions. ABGs, chest x-ray and labs were drawn. He was given IV Lasix and transferred to the intensive care unit for concerns regarding possible seizure. He is seen today in consultation. He is currently resting in bed. He is barely arousable. He is mumbling. He is maintaining O2 saturations in the 90s on 4 L/m per nasal cannula. He does have 0.9 normal saline at 130 mL by mouth per hour. Suspect alcohol withdrawal syndrome. He is on the CIWA protocol. Abdomen is distended. He is currently on ceftriaxone and azithromycin. Lovenox for DVT prophylaxis. Haldol for agitation. Thiamine. ABGs revealed a pO2 of 78, pCO2 22, pH 7.46 on 32% FiO2. White count 8.1. Hemoglobin 9.9. MCV 108.9. Platelets 263. Sodium 136. Potassium 3.2. Creatinine 1.58. ProBNP 3300. Troponin negative. Serum alcohol level was less than 10. INR 2.5. On 04/03/2021 patient seen in follow-up in the intensive care unit. He is short of breath, and audibly wheezy during today's exam, he is on 10 L of oxygen this morning, with a pulse ox of 93-95%, he is currently on 0.9 normal saline at a rate of 1:30 ML per hour, he remains on CIWA protocol for acute alcohol withdrawal, he received a total of 6 mg of Ativan overnight in addition to haldol. he is confused, he is lethargic, he is not following commands. Lung sounds reveal equal air entry bilaterally, with diffuse wheezing throughout.remains on antibiotics in the combination of Zithromax and Rocephin, we added back pain treatments and IV steroids this morning. today's chest x-ray shows new extensive airspace disease in the right upper and mid lung zone, left basilar pleural parenchymal disease was again seen with possible deep sulcus and pneumothorax could not be definitely excluded. today's labs have been reviewed, and there has been an increase in patient's white blood cell count up to 16.9, hemoglobin is 11.3, sodium is 139, potassium is 4.5, chloride is 114, CO2 is 16, BUN of 27, creatinine is 1.41. IV fluids infusing at a rate of 1:30 ML per hour, patient has been nothing by mouth in view of his decreased level of consciou sness, his had limited oral intake, his urine output has been in the order of 25-30 ML per hour. On 04/04/2021 patient seen in follow-up in the intensive care unit, he remains poorly responsive, breathing spontaneously, he is currently on 11 L per high flow nasal cannula, his pulse ox is 91-97%, he sounds less bronchospastic on today's exam, lung sounds reveal diffuse rhonchi, and some scattered wheezes. Febrile overnight, hemodynamically has been stable, he remains on 0.9 normal saline at a rate of 1:30 ML per hour, his been kept nothing by mouth in view of his decreased level of consciousness. His CODE STATUS is DO NOT RESUSCITATE, no new chest x-ray today, yesterday's chest x-ray showed new extensive airspace disease in the right upper and right midlung zone and left basilar pleural parenchymal disease. Possibility of aspiration pneumonia is suspected, his antibiotic was switched to Zosyn. His white blood cell count is improving on today's labs. He is not able to produce a sputum specimen for culture, his blood cultures have been negative thus far. He is less tachycardic, he is in sinus mechanism with a controlled rate, he was started on steroids and breathing treatments, DVT and GI prophylaxis. Remains on CIWA protocol, received 2 mg of Ativan this morning. Remains calm, not opening eyes to verbal or tactile stimulation. On 04/05/2021 patient seen in follow-up in the intensive care unit, this morning his mentation is still Altered, he is poorly responsive, breathing spontaneously, he is on 15 L of oxygen per high flow nasal cannula with O2 sat of 90-94%, patient has been afebrile, hemodynamically he is been stable, he is actually a bit hypertensive this morning, with a blood pressure of 170/91. He remains on 0.9 normal saline at 130 ML per hour, and he is significantly in positive fluid balance. He is lethargic, he has not been able to clear any secretions, lung sounds reveal diffuse rhonchi, this chest x-ray shows diffuse bilateral opacities with interval worsening, left lower lobe collapse, small left pleural effusion slightly increased in size compared to prior. No pneumothorax. She remains on IV steroids, nebulized bronchodilators, and Zosyn. Remains on CIWA protocol. His CIWA scale is 8 or 9, he did receive 1 dose of Ativan early this morning. Hospice and palliative care consultation was placed after discussing chest condition with the patient's nephew Og, who agreed to hospice. For now patient continues on supportive treatment. 04/06/2021, the patient is being seen in follow-up. This is an alcoholic 70-year-old patient with known history of chronic alcoholic liver disease and chronic debility who presented with hypoxic respiratory failure, altered mental status and aspiration pneumonia. The patient is still doing poorly. He remains on 15 L of oxygen by nasal cannula and is also on 100% nonrebreather facemask.. He remains on IV Zosyn. Hemodynamically stable. Quite lethargic. He remains on CIWA protocol. The patient is receiving supportive care in the ICU in preparation for hospice care at which the patient's family agreed regarding his advanced and debilitated condition. This morning, the patient continues to move 1. Unresponsive. Chest x-rays showing diffuse but the pulmonary infiltrates, there is right upper lobe pulmonary infiltrate in addition to extensive infiltration of the left lung with questionable left apical pneumothorax. There is an average seen in the periphery of the left upper lobe which obviously raises the concern for pneumothorax. Meanwhile, the patient remains on IV Zosyn for now. Blood cultures of been negative. On the blood work today white cell count is 21 which is higher compared to yesterday and the sodium level is up to 148 with a serum bicarb of 17 and a creatinine of 1.3. IV fluids are in the form of 0.9 at the rate of 20 mL an hour. 04/07/2021, the patient remains extremely lethargic, nonresponsive, he continues to moan, may withdraw to deep painful stimulation and grimaces to deep painful stimulation. Cannot hold a conversation. Still 100% nonrebreather facemask. His ammonia level was low. CAT scan of the brain that was done on 04/01/2021 sh owed chronic atrophy. No acute abnormalities were seen on the CAT scan of the brain. Meanwhile, the patient continues to be altered neurologically. At the same time, the patient's is having an acute hypoxic respiratory failure with diffuse but the pulmonary infiltrates with upper lobe predominance and a developing left sided pleural effusion. The patient is suspected to have aspiration. The patient is on IV Zosyn. Possibility of an acute lung injury cannot be completely excluded. There was a questionable pneumothorax on yesterday'sx, not seen on today's chest x-ray. I further note, they patient's sodium level is up to 151 and his potassium level is at 5.1. The patient also has developed an acute kidney injury and creatinine is at 1.4 with a BUN of 43. Note that this creatinine is slightly improved compared to the initial creatinine, admission which was at 1.8. There may be a component of chronic kidney disease. His white cell count is currently at 23 which is slightly highe r compared to yesterday. As such, the patient remains encephalopathy worsening hypoxemic respiratory failure. He remains on IV Zosyn. He remains on IV fluid with normal saline at the rate of 75 mL an hour. He remains on IV Solu Medrol 60 mg every 6 hours. He is on DuoNeb nebulized treatments around the clock. He has not received any Ativan overnight. He remains on IV Protonix 04/08/2021, the patient continues to moan. He mumbles. He is speaking a few sentences. He can follow simple commands. He is extremely lethargic and weak. I with a slightly more alert compared to yesterday. He remains on a 1 cm facemask in addition to high flow oxygen. Chest x-ray remained unchanged with d iffuse bilateral pulmonary infiltrates and a left-sided pleural effusion. He remains on IV Zosyn. His sodium level is elevated at 150s. The patient is on D5 water. Creatinine is up to 1.8. He is holding his own blood pressure. Hemodynamically stable. Urine output is in order of 100 mL an hour. Her activity. No other issues for now. He remains nothing by mouth. He remains on IV Protonix. Blood work shows a sodium of 150 with a potassium of 3.7. Serum bicarb is at 18. BNP is 3 with a creatinine of 1.8. LFTs remained abnormal. White cell count is at 24.1. 04/09/2021, I'm seeing this patient for a follow-up. I would say he is doing slow progress in terms of his mentation. He remains extremely lethargic, at times agitated, sees most of the time of mumbles and moans constantly. Nevertheless, when asked simple questions such as moving his toes or hands, he would comply. He has a very weak grasp using his hands. Unable to raise his arms against gravity. He is trying to speak. We can sometimes understand few words. For the most part, his speech is still garbled. No seizure activity. No neck stiffness. No fever. No aspiration. He remains nothing by mouth. He remains on D5 water at the rate of 150 mL an hour and his sodium level is down to 143. His BUN is a 53 with a creatinine of 1.9 and this is essentially stable compared to yesterday. His urine output is in order of 30 mL an hour. His white cell count is down to 13.4. As for his follow-up chest x-ray from today, there are some improvement in the volume status and infiltration. There is still diffuse interstitial and perihilar infiltrate and a left-sided pleural effusion. There is also increased opacity in the right lung base consistent with pneumonia. The overall picture is consistent with pneumonia with possibly component of CHF. His ammonia level has been low. Overnight, he became more agitated. He received a dose of Haldol around 9 PM. Subsequently because of increased agitation, he was briefly placed on Precedex which made him hypotensive and bradycardic and this was discontinued. Since then, the patient has not required any further sedatives. Earlier this morning, I took him off the nonrebreather facemask. He is on high flow oxygen at 15 L and his pulse ox is currently ranging at around 88-89%. Most recent BP is 80/53. No significant tachycardia. Cardiac rhythm is sinus. No tachypnea. No symptoms to swelling in lower extremities. 04/10/2021, the patient is much more awake and communicating and following commands and answering questions appropriately. He is not taking any sedative medications. Is gradually recovering. Mentation. He is lethargic but he is obviously awake and alert and following commands and answering questions appropriately. He is also having a bedside swallow evaluation and according to the therapist is able to swallow appropriately. Was taken off the 100% nonrebreather facemask and the patient is currently on a oxygen by nasal cannula high flow at 10 L. The patient is still IV fluids with D5 water at the rate of 75 mL an hour. Sodium level is at 144. Creatinine is at 50 with a creatinine of 1.9. Serum bicarb is a 16. White cell count and 16 with a hemoglobin of 9.4. Platelets at 197. The follow-up chest exit needs to be done today. In terms of medication, the patient is on Lovenox 40 mg subcu for DVT prophylaxis. IV Zosyn regarding aspiration pneumonia. He is also taking DuoNeb nebulized treatments around the clock. No other significant events otherwise for now. He is quite pleasant. 04/11/2021, the patient is on 8 L of oxygen by nasal cannula. Remains alert and awake. Hemodynamically stable. Afebrile. No respiratory difficulties. Tolerating his diet. His blood work shows some ongoing issues with some non- anion gap metabolic acidosis.. The serum bicarbonate remains low at 19. Meanwhile, the renal function is stable with a creatinine of 1.8. Sodium is at 140. His CBC showed white cell count 17.2 with hemoglobin of 9.4. Note that the patient is still coagulopathic related to his chronic alcoholic liver disease. INR was at 2 with a PT of 19.2 suggestive of chronic hepatic dysfunct ion. No signs of encephalopathy. No signs of any fluid overload. He is on DuoNeb nebulized treatments around the clock. He remains on Aredia prophylaxis. He is also on IV Zosyn. The chest x-ray in comparison was done yesterday and it showed some interval improvement in the bilateral pulmonary infiltrates which we assume it's related to aspiration pneumonia. There is still some left-sided pleural effusion and patchy perihilar pulmonary infiltrates in addition to bibasilar pulmonary infiltrates. 04/12/2021, the patient is seen in a FU no active issues. His been downgraded and he is awaiting a medical floor bed. He is not having any respiratory distress. His pulse ox currently is at 94% on oxygen at 8 L. His chest x-ray from today is showing diffuse bilateral pulmonary infiltrates consistent with aspiration pneumonia. There is multifocal areas of infiltration and small effusions and overall infiltrates are essentially unchanged. Clinically however the patient is improving and oxygenation is improved. He remains on IV Zosyn. Is able to swallow without any aspiration. Mental status is normalized. Creatinine is also improving and is currently down to 1.8. Correlation profile is improving INR is down to 1.5 with a PT of 15. White cell count is down to 17.2. His serum bicarb is at 19 consistent with non-anion gap metabolic acidosis. Bilirubin is at 8.8 with an alkaline phosphatase of 618 and AST of 97 with an ALT of 34. Serum albumin is at 2.1. Ultrasound of the gallbladder was done and the patient was found to have sludge in the gallbladder. Common bile duct was measuring 6 mm in size. Liver was consistent with cirrhosis and the patient had some mild ascites. The patient was seen by gastroenterology. Echo showed a preserved LV function with an ejection fraction of 50-55%. No evidence of any cardiomyopathy with valvular heart disease. Patient was reevaluated today on 04/13/2021, patient remains in the ICU, generally weak, on 7 L nasal cannula, he is awake, cooperative, remains on antibiotics for presumptive aspiration pneumonia. Chest x-ray is showing some improvement in his bilateral infiltrates. Patient is now overflow in the ICU, and I plan to transfer the patient to a regular medical floor. No labs were done today. His last WBC count 2 days ago was improving. Electrolytes are improving and he profile was noted to be improving. Objective - Vital Signs Vital signs: Vital Signs Temp 97.6 F 04/13/21 08:00 Pulse 88 04/13/21 11:55 Resp 18 04/13/21 08:00 BP 100/75 04/13/21 08:00 Pulse Ox 96 04/13/21 08:00 Intake & Output 04/12/21 04/13/21 04/13/21 18:59 06:59 18:59 Intake Total 100 100 Output Total 425 300 Balance -325 -200 Weight 98.1 kg 98.1 kg Intake: IV 100 Piperacillin-Tazobactam 3 100 .375 gm In Sodium Chloride 0.9% 100 ml @ 25 mls/hr IVPB Q8H [facility] Rx#: [id number] Intake, IV Titration 100 Amount Piperacillin-Tazobactam 3 100 .375 gm In Sodium Chloride 0.9% 100 ml @ 25 mls/hr IVPB Q8H [facility] Rx#: [id number] Output: Urine 425 300 Other: Voiding Method Indwelling Catheter Indwelling Catheter Indwelling Catheter - Exam GENERAL EXAM: Revealed 70-year-old white male on 7 L nasal cannula, in no distress. HEAD: Normocephalic/atraumatic. EYES: Normal reaction of pupils, equal size. Conjunctiva pink, sclera white. NOSE: Clear with pink turbinates. THROAT: No erythema or exudates. NECK: No masses, no JVD, no thyroid enlargement, no adenopathy. CHEST: No chest wall deformity. Symmetrical expansion. LUNGS: Equal air entry fine crackles at the bases no rhonchi and no wheezes CVS: Regular rate and rhythm, normal S1 and S2, no gallops, no murmurs, no rubs ABDOMEN: Soft, nontender. No hepatosplenomegaly, normal bowel sounds, no guarding or rigidity. Suspect some ascites. EXTREMITIES: No clubbing, 2+ bipedal edema, no cyanosis, 2+ pulses and upper and lower extremities. MUSCULOSKELETAL: No deformities noted limitation in range of motion SKIN: No rashes CENTRAL NERVOUS SYSTEM: Awake, oriented 3, no gross focal deficits. However the patient is generally weak. - Labs CBC & Chem 7: 04/11/21 03:28 04/11/21 03:28 Assessment and Plan Assessment: Impression: Acute hypoxic respiratory failure secondary to aspiration pneumonia I'll call withdrawal and history of alcoholism. Altered mental status secondary to acute metabolic encephalopathy, alcohol withdrawal, and aspiration pneumonia. Coagulopathy secondary to alcoholism and alcohol liver disease. Chronic alcoholic liver disease. Benign essential hypertension. Suspect ascites. Recommendation: Continue present supportive care measures. Continue antibiotics for aspiration pneumonia. Continue IV fluid at KVO and continue diuretics. Titrate FiO2 down as tolerated. We will arrange for transfer to a regular medical floor. Agree with DO NOT RESUSCITATE CODE STATUS. Time with Patient: Less than 30
--- NOTE | 2021-04-13 15:03 | CDI ---
Documentation Clarification Form Date: 04/13/2021 02:52:15 PM From: Rosaura KaurMARY lamar, CCDS Admit Date: 04/02/2021 07:29:00 AM Patient Name: Neri Kurtz Visit Number: [id number] Discharge Date: ATTENTION: The Clinical Documentation Specialists (CDI) and [facility] Coding Staff appreciate your assistance in clarifying documentation. Please respond to the clarification below the line at the bottom and electronically sign. The CDI & [facility] Coding staff will review the response and follow-up if needed. Please note: Queries are made part of the Legal Health Record. If you have any questions, please contact the author of this message via ITS. Dr. Tashi Whaley. Sheet: CKD is documented in the 04/07 through 04/12 Pulmonary/Critical Care Progress Notes and in the 04/12 & 04/13 Attending Physician Progress Notes without further specificity. Additional clarification regarding the stage of CKD is requested. History/Risk Factors per the 04/01 H/P: Hypertension, Smoker, Alcoholism. Clinical Indicators: Presented to the ED on 04/01 via EMS after a fall with inability to stand up. History of multiple falls recently & increasingly weak, drinking alcohol daily. Has some SOB, cough & congestion. ED Clinical Impression: Fall, Weakness, Dehydration, Acute Exacerbation of COPD 04/01 VS: T 98.1, P 93, R 17 - 24, BP 171/88, PO 97 RA, BMI: 30.2 04/01 LAB: Hgb 12.1, PT 24.6, INR 2.5, APTT 31.0, Na 135, CO2 18, Lactic Acid 3.9 - 4.0; Calcium 8.3, AST 64, Alk Phos 622, Troponin 0.039, 0.038, Total Protein 6.2, Albumin 2.8. 04/01 BUN: 17, Creatinine 1.81, GFR 37 Historical GFR: 06/19/2017: >60 Treatment 04/01: IV fl Na Cl 1,000 mls @ 999 mls/hr q1Hr x2, INH Duoneb x1, IV Decadron, IV Toradol, IV Ativan 1 mg x2, IV Ativan 2 mg q10M prn, CIWA Protocol, IM Vit B1, IV Morphine Sulfate, IV Zofran, IV Rocephin, IV fl Na Cl 1,000 mls @ 130 mls/hr q7H, IV Azithromycin, IV Protonix Nephrology is not consulted. Please clarify the stage of the CKD, if known: [ ] CKD Stage 2 (GFR 60-89) [ ] CKD Stage 3 (GFR 30-59) [ ] CKD Stage 3a (GFR 45-59) [ ] CKD Stage 3b (GFR 30-44) [ ] Other, please specify [ ] Unable to determine (Template Last revised: October 2020) CKD Stage 3a (GFR 45-59) MTDD
--- NOTE | 2021-04-13 19:59 | P.PN ---
Subjective Progress Note Date: 04/13/21 Principal diagnosis: Elevated liver enzymes, alcohol liver disease, alcohol abuse, ascites Lying in bed in the ICU, no acute complaints. Tolerating diet. Objective - Vital Signs Vital signs: Vital Signs Temp 97.6 F 04/13/21 08:00 Pulse 84 04/13/21 08:23 Resp 18 04/13/21 08:00 BP 100/75 04/13/21 08:00 Pulse Ox 96 04/13/21 08:00 Intake & Output 04/12/21 04/13/21 04/13/21 18:59 06:59 18:59 Intake Total 100 100 Output Total 425 300 Balance -325 -200 Weight 98.1 kg 98.1 kg Intake: IV 100 Piperacillin-Tazobactam 3 100 .375 gm In Sodium Chloride 0.9% 100 ml @ 25 mls/hr IVPB Q8H [facility] Rx#: [id number] Intake, IV Titration 100 Amount Piperacillin-Tazobactam 3 100 .375 gm In Sodium Chloride 0.9% 100 ml @ 25 mls/hr IVPB Q8H [facility] Rx#: [id number] Output: Urine 425 300 Other: Voiding Method Indwelling Catheter Indwelling Catheter Indwelling Catheter - Exam On physical examination, patient appears comfortable in no apparent distress. HEAD: Normocephalic, atraumatic. EYES: Scleral icterus. No conjunctival injection. MOUTH: No lesions, tongue midline. NECK: Trachea midline, no gross abnormalities. ABDOMEN: Soft, obese. Bowel sounds are positive. No organomegaly. No guarding or rigidity. EXTREMITIES: No pedal edema. SKIN: No rashes, no jaundice. NEUROLOGIC: Alert and oriented x3. No focal deficits. - Labs CBC & Chem 7: 04/11/21 03:28 04/11/21 03:28 Assessment and Plan (1) Elevated liver enzymes Narrative/Plan: 70-year-old male with a medical history significant for alcohol abuse presenting for aspiration pneumonia and currently receiving treatment in the intensive care unit. Consult was placed elevation in liver enzymes which have remained stable and are consistent with history of alcoholic liver disease with total bilirubin 3.8, alkaline phosphatase 618, AST 27 and ALT 34. Ultrasound of the abdomen negative for any biliary dilation or suggestion of obstruction with liver parenchyma showing changes consistent with alcoholic cirrhosis. Current Visit: Yes Status: Acute Code(s): R74.8 - ABNORMAL LEVELS OF OTHER SERUM ENZYMES SNOMED Code(s): 971189778 (2) Alcohol abuse Current Visit: Yes Status: Acute Code(s): F10.10 - ALCOHOL ABUSE, UNCOMPLICATED SNOMED Code(s): 05957487 (3) Ascites Current Visit: Yes Status: Acute Code(s): R18.8 - OTHER ASCITES SNOMED Code(s): 764312491 Plan: Supportive care Okay for sodium restricted diet Continue to monitor LFTs Continue to monitor CBC, BMP, INR Continue to monitor and treated for alcohol withdrawal Acute viral hepatitis panel pending Alcohol abstinence Thank you for allowing us to participate in the care of the patient
[2021-04-14 03:54] LABS: Anisocytosis Slight; Basophils % (A) 0 %; Eosinophils % (A) 0 %; HCT 31.9 % (39.0-53.0); HGB 9.9 gm/dL (13.0-17.5); Hypochromasia Marked; Lymphocytes # (A) 0.4 k/uL (1.0-4.8); Lymphocytes % (A) 3 %; MCH 34.7 pg (25.0-35.0); Macrocytosis Marked; Mean Platelet Volume 9.9; Monocytes # (A) 0.3 k/uL (0-1.0); Monocytes % (A) 2 %; Neutrophils # (A) 12.9 k/uL (1.3-7.7); Neutrophils % (A) 94 %; Platelet Count 179 k/uL (150-450); RBC 2.85 m/uL (4.30-5.90); RDW 19.3 % (11.5-15.5); WBC 13.8 k/uL (3.8-10.6)
[2021-04-14 04:04] LABS: Calcium 8.7 mg/dL (8.4-10.2); Potassium 4.3 mmol/L (3.5-5.1)
[2021-04-14 04:13] LABS: INR 1.3 (<1.2)
[2021-04-14] MEDS: IPRATROPIUM-ALBUTEROL 3 ML NEB INHALATION SCH ×4 (08:04→19:50)
[2021-04-14] MEDS: SODIUM BICARBONATE TAB 650 MG TAB PO SCH ×2 (08:41→20:33)
[2021-04-14] MEDS: ENOXAPARIN 40 MG/0.4 ML SYRINGE SQ SCH (08:41)
[2021-04-14] MEDS: PANTOPRAZOLE 40 MG/10 ML VIAL IV SCH (08:41)
[2021-04-14] MEDS: FUROSEMIDE 10 MG/ML 4 ML VIAL IV SCH ×2 (08:41→20:33)
[2021-04-14] MEDS: THIAMINE 100 MG TAB PO SCH (08:41)
[2021-04-14] MEDS: methylPREDNISolone SOD SUCCI 40 MG/ML 1 ML VIAL IV SCH ×2 (08:41→20:33)
[2021-04-14] MEDS: PIPERACILLIN-TAZOBACTAM 3.375 GM in SODIUM CHLORIDE 0.9% 100 ML IVPB SCH ×2 (08:42→18:14)
--- NOTE | 2021-04-14 11:06 | P.PN ---
Subjective Progress Note Date: 04/14/21 Principal diagnosis: Acute alcohol withdrawal and aspiration pneumonia This is a 70-year-old male patient with a history of hypertension and alcohol abuse. He did have an ongoing weakness and falls at home. He had been drinking daily and not eating much. He presented to the emergency room yesterday with shortness of breath and feelings of dehydration. X-ray of the left hip revealed no fracture. X-ray of the pelvis reveals no fracture. X-ray of the abdomen revealed nonacute abdomen. No free air. Computed tomography scan of the brain revealed cerebral atrophy. No acute intracranial abnormalities. Chest x-ray revealed left greater than right bibasilar pleural parenchymal disease. He was admitted to the regular medical floor. Last evening approximately 5:30 the patient was found on the floor lethargic and minimally responsive. He was only arousing to loud questions. ABGs, chest x-ray and labs were drawn. He was given IV Lasix and transferred to the intensive care unit for concerns regarding possible seizure. He is seen today in consultation. He is currently resting in bed. He is barely arousable. He is mumbling. He is maintaining O2 saturations in the 90s on 4 L/m per nasal cannula. He does have 0.9 normal saline at 130 mL by mouth per hour. Suspect alcohol withdrawal syndrome. He is on the CIWA protocol. Abdomen is distended. He is currently on ceftriaxone and azithromycin. Lovenox for DVT prophylaxis. Haldol for agitation. Thiamine. ABGs revealed a pO2 of 78, pCO2 22, pH 7.46 on 32% FiO2. White count 8.1. Hemoglobin 9.9. MCV 108.9. Platelets 263. Sodium 136. Potassium 3.2. Creatinine 1.58. ProBNP 3300. Troponin negative. Serum alcohol level was less than 10. INR 2.5. On 04/03/2021 patient seen in follow-up in the intensive care unit. He is short of breath, and audibly wheezy during today's exam, he is on 10 L of oxygen this morning, with a pulse ox of 93-95%, he is currently on 0.9 normal saline at a rate of 1:30 ML per hour, he remains on CIWA protocol for acute alcohol withdrawal, he received a total of 6 mg of Ativan overnight in addition to haldol. he is confused, he is lethargic, he is not following commands. Lung sounds reveal equal air entry bilaterally, with diffuse wheezing throughout.remains on antibiotics in the combination of Zithromax and Rocephin, we added back pain treatments and IV steroids this morning. today's chest x-ray shows new extensive airspace disease in the right upper and mid lung zone, left basilar pleural parenchymal disease was again seen with possible deep sulcus and pneumothorax could not be definitely excluded. today's labs have been reviewed, and there has been an increase in patient's white blood cell count up to 16.9, hemoglobin is 11.3, sodium is 139, potassium is 4.5, chloride is 114, CO2 is 16, BUN of 27, creatinine is 1.41. IV fluids infusing at a rate of 1:30 ML per hour, patient has been nothing by mouth in view of his decreased level of consciou sness, his had limited oral intake, his urine output has been in the order of 25-30 ML per hour. On 04/04/2021 patient seen in follow-up in the intensive care unit, he remains poorly responsive, breathing spontaneously, he is currently on 11 L per high flow nasal cannula, his pulse ox is 91-97%, he sounds less bronchospastic on today's exam, lung sounds reveal diffuse rhonchi, and some scattered wheezes. Febrile overnight, hemodynamically has been stable, he remains on 0.9 normal saline at a rate of 1:30 ML per hour, his been kept nothing by mouth in view of his decreased level of consciousness. His CODE STATUS is DO NOT RESUSCITATE, no new chest x-ray today, yesterday's chest x-ray showed new extensive airspace disease in the right upper and right midlung zone and left basilar pleural parenchymal disease. Possibility of aspiration pneumonia is suspected, his antibiotic was switched to Zosyn. His white blood cell count is improving on today's labs. He is not able to produce a sputum specimen for culture, his blood cultures have been negative thus far. He is less tachycardic, he is in sinus mechanism with a controlled rate, he was started on steroids and breathing treatments, DVT and GI prophylaxis. Remains on CIWA protocol, received 2 mg of Ativan this morning. Remains calm, not opening eyes to verbal or tactile stimulation. On 04/05/2021 patient seen in follow-up in the intensive care unit, this morning his mentation is still Altered, he is poorly responsive, breathing spontaneously, he is on 15 L of oxygen per high flow nasal cannula with O2 sat of 90-94%, patient has been afebrile, hemodynamically he is been stable, he is actually a bit hypertensive this morning, with a blood pressure of 170/91. He remains on 0.9 normal saline at 130 ML per hour, and he is significantly in positive fluid balance. He is lethargic, he has not been able to clear any secretions, lung sounds reveal diffuse rhonchi, this chest x-ray shows diffuse bilateral opacities with interval worsening, left lower lobe collapse, small left pleural effusion slightly increased in size compared to prior. No pneumothorax. She remains on IV steroids, nebulized bronchodilators, and Zosyn. Remains on CIWA protocol. His CIWA scale is 8 or 9, he did receive 1 dose of Ativan early this morning. Hospice and palliative care consultation was placed after discussing chest condition with the patient's nephew Og, who agreed to hospice. For now patient continues on supportive treatment. 04/06/2021, the patient is being seen in follow-up. This is an alcoholic 70-year-old patient with known history of chronic alcoholic liver disease and chronic debility who presented with hypoxic respiratory failure, altered mental status and aspiration pneumonia. The patient is still doing poorly. He remains on 15 L of oxygen by nasal cannula and is also on 100% nonrebreather facemask.. He remains on IV Zosyn. Hemodynamically stable. Quite lethargic. He remains on CIWA protocol. The patient is receiving supportive care in the ICU in preparation for hospice care at which the patient's family agreed regarding his advanced and debilitated condition. This morning, the patient continues to move 1. Unresponsive. Chest x-rays showing diffuse but the pulmonary infiltrates, there is right upper lobe pulmonary infiltrate in addition to extensive infiltration of the left lung with questionable left apical pneumothorax. There is an average seen in the periphery of the left upper lobe which obviously raises the concern for pneumothorax. Meanwhile, the patient remains on IV Zosyn for now. Blood cultures of been negative. On the blood work today white cell count is 21 which is higher compared to yesterday and the sodium level is up to 148 with a serum bicarb of 17 and a creatinine of 1.3. IV fluids are in the form of 0.9 at the rate of 20 mL an hour. 04/07/2021, the patient remains extremely lethargic, nonresponsive, he continues to moan, may withdraw to deep painful stimulation and grimaces to deep painful stimulation. Cannot hold a conversation. Still 100% nonrebreather facemask. His ammonia level was low. CAT scan of the brain that was done on 04/01/2021 sh owed chronic atrophy. No acute abnormalities were seen on the CAT scan of the brain. Meanwhile, the patient continues to be altered neurologically. At the same time, the patient's is having an acute hypoxic respiratory failure with diffuse but the pulmonary infiltrates with upper lobe predominance and a developing left sided pleural effusion. The patient is suspected to have aspiration. The patient is on IV Zosyn. Possibility of an acute lung injury cannot be completely excluded. There was a questionable pneumothorax on yesterday'sx, not seen on today's chest x-ray. I further note, they patient's sodium level is up to 151 and his potassium level is at 5.1. The patient also has developed an acute kidney injury and creatinine is at 1.4 with a BUN of 43. Note that this creatinine is slightly improved compared to the initial creatinine, admission which was at 1.8. There may be a component of chronic kidney disease. His white cell count is currently at 23 which is slightly highe r compared to yesterday. As such, the patient remains encephalopathy worsening hypoxemic respiratory failure. He remains on IV Zosyn. He remains on IV fluid with normal saline at the rate of 75 mL an hour. He remains on IV Solu Medrol 60 mg every 6 hours. He is on DuoNeb nebulized treatments around the clock. He has not received any Ativan overnight. He remains on IV Protonix 04/08/2021, the patient continues to moan. He mumbles. He is speaking a few sentences. He can follow simple commands. He is extremely lethargic and weak. I with a slightly more alert compared to yesterday. He remains on a 1 cm facemask in addition to high flow oxygen. Chest x-ray remained unchanged with d iffuse bilateral pulmonary infiltrates and a left-sided pleural effusion. He remains on IV Zosyn. His sodium level is elevated at 150s. The patient is on D5 water. Creatinine is up to 1.8. He is holding his own blood pressure. Hemodynamically stable. Urine output is in order of 100 mL an hour. Her activity. No other issues for now. He remains nothing by mouth. He remains on IV Protonix. Blood work shows a sodium of 150 with a potassium of 3.7. Serum bicarb is at 18. BNP is 3 with a creatinine of 1.8. LFTs remained abnormal. White cell count is at 24.1. 04/09/2021, I'm seeing this patient for a follow-up. I would say he is doing slow progress in terms of his mentation. He remains extremely lethargic, at times agitated, sees most of the time of mumbles and moans constantly. Nevertheless, when asked simple questions such as moving his toes or hands, he would comply. He has a very weak grasp using his hands. Unable to raise his arms against gravity. He is trying to speak. We can sometimes understand few words. For the most part, his speech is still garbled. No seizure activity. No neck stiffness. No fever. No aspiration. He remains nothing by mouth. He remains on D5 water at the rate of 150 mL an hour and his sodium level is down to 143. His BUN is a 53 with a creatinine of 1.9 and this is essentially stable compared to yesterday. His urine output is in order of 30 mL an hour. His white cell count is down to 13.4. As for his follow-up chest x-ray from today, there are some improvement in the volume status and infiltration. There is still diffuse interstitial and perihilar infiltrate and a left-sided pleural effusion. There is also increased opacity in the right lung base consistent with pneumonia. The overall picture is consistent with pneumonia with possibly component of CHF. His ammonia level has been low. Overnight, he became more agitated. He received a dose of Haldol around 9 PM. Subsequently because of increased agitation, he was briefly placed on Precedex which made him hypotensive and bradycardic and this was discontinued. Since then, the patient has not required any further sedatives. Earlier this morning, I took him off the nonrebreather facemask. He is on high flow oxygen at 15 L and his pulse ox is currently ranging at around 88-89%. Most recent BP is 80/53. No significant tachycardia. Cardiac rhythm is sinus. No tachypnea. No symptoms to swelling in lower extremities. 04/10/2021, the patient is much more awake and communicating and following commands and answering questions appropriately. He is not taking any sedative medications. Is gradually recovering. Mentation. He is lethargic but he is obviously awake and alert and following commands and answering questions appropriately. He is also having a bedside swallow evaluation and according to the therapist is able to swallow appropriately. Was taken off the 100% nonrebreather facemask and the patient is currently on a oxygen by nasal cannula high flow at 10 L. The patient is still IV fluids with D5 water at the rate of 75 mL an hour. Sodium level is at 144. Creatinine is at 50 with a creatinine of 1.9. Serum bicarb is a 16. White cell count and 16 with a hemoglobin of 9.4. Platelets at 197. The follow-up chest exit needs to be done today. In terms of medication, the patient is on Lovenox 40 mg subcu for DVT prophylaxis. IV Zosyn regarding aspiration pneumonia. He is also taking DuoNeb nebulized treatments around the clock. No other significant events otherwise for now. He is quite pleasant. 04/11/2021, the patient is on 8 L of oxygen by nasal cannula. Remains alert and awake. Hemodynamically stable. Afebrile. No respiratory difficulties. Tolerating his diet. His blood work shows some ongoing issues with some non- anion gap metabolic acidosis.. The serum bicarbonate remains low at 19. Meanwhile, the renal function is stable with a creatinine of 1.8. Sodium is at 140. His CBC showed white cell count 17.2 with hemoglobin of 9.4. Note that the patient is still coagulopathic related to his chronic alcoholic liver disease. INR was at 2 with a PT of 19.2 suggestive of chronic hepatic dysfunct ion. No signs of encephalopathy. No signs of any fluid overload. He is on DuoNeb nebulized treatments around the clock. He remains on Aredia prophylaxis. He is also on IV Zosyn. The chest x-ray in comparison was done yesterday and it showed some interval improvement in the bilateral pulmonary infiltrates which we assume it's related to aspiration pneumonia. There is still some left-sided pleural effusion and patchy perihilar pulmonary infiltrates in addition to bibasilar pulmonary infiltrates. 04/12/2021, the patient is seen in a FU no active issues. His been downgraded and he is awaiting a medical floor bed. He is not having any respiratory distress. His pulse ox currently is at 94% on oxygen at 8 L. His chest x-ray from today is showing diffuse bilateral pulmonary infiltrates consistent with aspiration pneumonia. There is multifocal areas of infiltration and small effusions and overall infiltrates are essentially unchanged. Clinically however the patient is improving and oxygenation is improved. He remains on IV Zosyn. Is able to swallow without any aspiration. Mental status is normalized. Creatinine is also improving and is currently down to 1.8. Correlation profile is improving INR is down to 1.5 with a PT of 15. White cell count is down to 17.2. His serum bicarb is at 19 consistent with non-anion gap metabolic acidosis. Bilirubin is at 8.8 with an alkaline phosphatase of 618 and AST of 97 with an ALT of 34. Serum albumin is at 2.1. Ultrasound of the gallbladder was done and the patient was found to have sludge in the gallbladder. Common bile duct was measuring 6 mm in size. Liver was consistent with cirrhosis and the patient had some mild ascites. The patient was seen by gastroenterology. Echo showed a preserved LV function with an ejection fraction of 50-55%. No evidence of any cardiomyopathy with valvular heart disease. Patient was reevaluated today on 04/13/2021, patient remains in the ICU, generally weak, on 7 L nasal cannula, he is awake, cooperative, remains on antibiotics for presumptive aspiration pneumonia. Chest x-ray is showing some improvement in his bilateral infiltrates. Patient is now overflow in the ICU, and I plan to transfer the patient to a regular medical floor. No labs were done today. His last WBC count 2 days ago was improving. Electrolytes are improving and he profile was noted to be improving. Reevaluated today on 04/14/2021, remains in the ICU as an overflow, presently on 6 L nasal cannula, and his O2 saturation is 95%. Patient is being treated for aspiration pneumonia, at presentation was presentation of alcohol withdrawal. Remains on diuretics in the form of Lasix 40 mg every 12 hours, patient will eventually need placement. Continues to have some edema abdominal distention and ascites. However overall the patient is improving, and feeling much better over the last few days. CBC is relatively unremarkable electrolytes are normal BUN is 41 and creatinine is down to 1.57, it was 1.87 few days ago. Chest x-ray from few days ago showed multifocal areas of infiltrates and small effusion Objective - Vital Signs Vital signs: Vital Signs Temp 98.3 F 04/14/21 08:00 Pulse 88 04/14/21 08:11 Resp 19 04/14/21 08:00 BP 117/81 04/14/21 08:00 Pulse Ox 95 04/14/21 08:00 Intake & Output 04/13/21 04/14/21 04/14/21 18:59 06:59 18:59 Intake Total 800 100 Output Total 600 700 350 Balance 200 -600 -350 Weight 98.1 kg 97.2 kg Intake: Intake, IV Titration 100 Amount Piperacillin-Tazobactam 3 100 .375 gm In Sodium Chloride 0.9% 100 ml @ 25 mls/hr IVPB Q8H [facility] Rx#: [id number] Oral 800 Output: Urine 600 700 350 Other: Voiding Method Indwelling Catheter Indwelling Catheter Indwelling Catheter - Exam GENERAL EXAM: Revealed 70-year-old white male on 6 L nasal cannula, in no distress. HEAD: Normocephalic/atraumatic. EYES: Normal reaction of pupils, equal size. Conjunctiva pink, sclera white. NOSE: Clear with pink turbinates. THROAT: No erythema or exudates. NECK: No masses, no JVD, no thyroid enlargement, no adenopathy. CHEST: No chest wall deformity. Symmetrical expansion. LUNGS: Equal air entry fine crackles at the bases no rhonchi and no wheezes CVS: Regular rate and rhythm, normal S1 and S2, no gallops, no murmurs, no rubs ABDOMEN: Soft, nontender. No hepatosplenomegaly, normal bowel sounds, no guarding or rigidity. Suspect some ascites. EXTREMITIES: No clubbing, 2+ bipedal edema, no cyanosis, 2+ pulses and upper and lower extremities. MUSCULOSKELETAL: No deformities noted limitation in range of motion SKIN: No rashes CENTRAL NERVOUS SYSTEM: Awake, oriented 3, no gross focal deficits. Remained generally weak. - Labs CBC & Chem 7: 04/14/21 03:26 04/14/21 03:26 Labs: Abnormal Lab Results - Last 24 Hours (Table) 04/14/21 04/14/21 04/14/21 Range/Units 03:26 03:26 03:26 WBC 13.8 H (3.8-10.6) k/uL RBC 2.85 L (4.30-5.90) m/uL Hgb 9.9 L (13.0-17.5) gm/dL Hct 31.9 L (39.0-53.0) % MCV 112.0 H (80.0-100.0) fL RDW 19.3 H (11.5-15.5) % Neutrophils # 12.9 H (1.3-7.7) k/uL Lymphocytes # 0.4 L (1.0-4.8) k/uL Macrocytosis Marked A PT 13.0 H (9.0-12.0) sec INR 1.3 H (<1.2) Chloride 110 H (98-107) mmol/L Carbon Dioxide 20 L (22-30) mmol/L BUN 41 H (9-20) mg/dL Creatinine 1.57 H (0.66-1.25) mg/dL Glucose 156 H (74-99) mg/dL Assessment and Plan Assessment: Impression: Acute hypoxic respiratory failure secondary to aspiration pneumonia Altered mental status secondary to acute metabolic encephalopathy, alcohol withdrawal, and aspiration pneumonia. Coagulopathy secondary to alcoholism and alcohol liver disease. Chronic alcoholic liver disease. Benign essential hypertension. Suspect ascites. Alcoholism and alcohol withdrawal on presentation. Recommendation: Continue present supportive care measures. Continue antibiotics for aspiration pneumonia. Continue IV fluid at KVO and continue diuretics. Titrate FiO2 down as tolerated. Transfer out of ICU when the bed becomes available. Patient was definitely need some sort of placement on outpatient basis. Agree with DO NOT RESUSCITATE CODE STATUS. Time with Patient: Less than 30
--- NOTE | 2021-04-14 13:46 | P.PN ---
Subjective Progress Note Date: 04/14/21 Principal diagnosis: Elevated liver enzymes, alcohol liver disease, alcohol abuse, ascites Lying in bed in the ICU, no acute complaints or acute events as per nursing. Tolerating diet. Objective - Vital Signs Vital signs: Vital Signs Temp 98.2 F 04/13/21 19:44 Pulse 88 04/14/21 08:11 Resp 18 04/13/21 13:14 BP 113/86 04/14/21 02:00 Pulse Ox 95 04/14/21 02:00 Intake & Output 04/13/21 04/14/21 04/14/21 18:59 06:59 18:59 Intake Total 800 100 Output Total 600 700 350 Balance 200 -600 -350 Weight 98.1 kg 97.2 kg Intake: Intake, IV Titration 100 Amount Piperacillin-Tazobactam 3 100 .375 gm In Sodium Chloride 0.9% 100 ml @ 25 mls/hr IVPB Q8H [facility] Rx#: [id number] Oral 800 Output: Urine 600 700 350 Other: Voiding Method Indwelling Catheter Indwelling Catheter Indwelling Catheter - Exam On physical examination, patient appears comfortable in no apparent distress. HEAD: Normocephalic, atraumatic. EYES: Scleral icterus. No conjunctival injection. MOUTH: No lesions, tongue midline. NECK: Trachea midline, no gross abnormalities. ABDOMEN: Soft, obese. Bowel sounds are positive. No organomegaly. No guarding or rigidity. EXTREMITIES: No pedal edema. SKIN: No rashes, no jaundice. NEUROLOGIC: Alert and oriented x3. No focal deficits. - Labs CBC & Chem 7: 04/14/21 03:26 04/14/21 03:26 Labs: Abnormal Lab Results - Last 24 Hours (Table) 04/14/21 04/14/21 04/14/21 Range/Units 03:26 03:26 03:26 WBC 13.8 H (3.8-10.6) k/uL RBC 2.85 L (4.30-5.90) m/uL Hgb 9.9 L (13.0-17.5) gm/dL Hct 31.9 L (39.0-53.0) % MCV 112.0 H (80.0-100.0) fL RDW 19.3 H (11.5-15.5) % Neutrophils # 12.9 H (1.3-7.7) k/uL Lymphocytes # 0.4 L (1.0-4.8) k/uL Macrocytosis Marked A PT 13.0 H (9.0-12.0) sec INR 1.3 H (<1.2) Chloride 110 H (98-107) mmol/L Carbon Dioxide 20 L (22-30) mmol/L BUN 41 H (9-20) mg/dL Creatinine 1.57 H (0.66-1.25) mg/dL Glucose 156 H (74-99) mg/dL Assessment and Plan (1) Elevated liver enzymes Narrative/Plan: 70-year-old male with a medical history significant for alcohol abuse presenting for aspiration pneumonia and currently receiving treatment in the intensive care unit. Consult was placed elevation in liver enzymes which have remained stable and are consistent with history of alcoholic liver disease with total bilirubin 3.8, alkaline phosphatase 618, AST 27 and ALT 34. Ultrasound of the abdomen negative for any biliary dilation or suggestion of obstruction with liver parenchyma showing changes consistent with alcoholic cirrhosis. Current Visit: Yes Status: Acute Code(s): R74.8 - ABNORMAL LEVELS OF OTHER SERUM ENZYMES SNOMED Code(s): 836063571 (2) Alcohol abuse Current Visit: Yes Status: Acute Code(s): F10.10 - ALCOHOL ABUSE, UNCOMPLICATED SNOMED Code(s): 49755003 (3) Ascites Current Visit: Yes Status: Acute Code(s): R18.8 - OTHER ASCITES SNOMED Code(s): 434308547 Plan: Supportive care Okay for sodium restricted diet Continue to monitor LFTs Continue to monitor CBC, BMP, INR Continue to monitor and treated for alcohol withdrawal Acute viral hepatitis panel pending Alcohol abstinence Thank you for allowing us to participate in the care of the patient
--- NOTE | 2021-04-14 15:07 | P.PN ---
Subjective Progress Note Date: 04/14/21 Neri Kurtz is a 70 yo M with PMH of alcoholism, drinks a fifth of whiskey daily who presented to the ED with increasing weakness and falls at home. He states that he had not been feeling like himself, stumbling and after falling at home he decided to come to the ED. He denies nausea, vomiting or diarrhea. He does endorse cough. Pt denies sweats or tremors. On presentation pt hypertensive, labs with Hgb 12, Cr 1.8, lactic 4. AST elevated, trop 0.04, BNP 3300. CXR with L basilar infiltrate. 04/02/2021 yesterday afternoon discovered to be nearly obtunded,lethargic, minimally responsive, received IV push Lasix and transferred to ICU with suspicions of EtOH seizures. Maintained on seizure precautions with seizure pads. Neurology consult in place, recommendations pending. Continues on IV fluid resuscitation, Haldol and CIWA protocol,recent seawall score 17. Remains lethargic, minimally conversant. Yesterday reported he drinks a gallon of whiskey daily. Brain CT for cerebral atrophy with no acute intracranial abnormality, atrophy increased compared to prior exam. ABGs noted. Chest x-ray reporting increasing left lower lobe pneumonia. Maintaining O2 sats in the 90s on 4 L nasal cannula. Pro-calcitonin elevated, 0.31. Maintained on azithromycin, ceftriaxone. Afebrile, normal WBC. Abdominal x-ray reported limited exam, nonacute, no free air, multiple old left-sided rib fractures. Abdominal ultrasound reporting ascites. Troponin 0.039, 0.038, 0.031. Hemoglobin 9.9, platelets 263, INR 2.5. Potassium 3.2, magnesium 1.9, creatinine 1.5. Alk phos trending down. 04/03/2021 continues on CIWA protocol, lethargic, maintained on 10 L high flow nasal cannula maintaining O2 sats in the 90s, respiratory rate in the 20s. Afebrile, WBC increased ,16.9. Creatinine 1.41. Chest x-ray reporting new extensive airspace disease in the right upper and midlung zone, left basilar pl eural pressure multiple disease on with possible deep sulcus and pneumothorax. Maintained on Rocephin and Zithromax, nebulized bronchodilators, IV steroids. 04/06/2021 significantly lethargic, nearly obtunded does not open eyes to his name, withdraws from noxious stimuli only. Seizure and aspiration precautions maintained. Continues on nebulized bronchodilators, steroids. maintained on 15 L high flow nasal cannula/ nonrebreather, maintaining O2 sats in the 90s, tachypneic respiratory rate 20-27. Chest x-ray reporting continued bilateral airspace disease left greater than right with interval worsening on the left, suggesting possibility of underlying pneumothorax. Continues on CIWA protocol, Zosyn. Afebrile, WBC increased to 21.8, blood cultures negative. Hemoglobin 9.5, platelets 335. Sodium increased to 148, bicarb 17, BUN 32, creatinine up to 1.32. Hospice consult placed as per patient's nephew. Case management disclosed that the nephew is actually not family but very close friend, who states he has medical DPOA papers and is attempting to locate them. In the meanwhile patient has estranged children, whereabouts are unknown. 04/07/2021 condition unchanged, maintained on 100% nonrebreather, maintained on IV antibiotics. Afebrile, worsening leukocytosis, WBC up to 23.9. Sodium worsening up to 150, renal function worsening creatinine up to 1.43. Emergent guardianship in progress. 04/08/2021 maintained on Zosyn, IV fluid hydration with D5W. Sodium 150. con tinues with alcoholic delirium. Ativan discontinued, patient restless, moaning, mumbling. Maintain him on percent nonrebreather/high flow nasal cannula maintaining O2 sats in the 90s. Chest x-ray reporting worsening bilateral lung infiltrates with increasing moderate left pleural effusion. Renal function worsening, creatinine up to 1.83. Bicarb 18. LFTs elevated/T bili up to 3.2. Afebrile, WBC increased ,24.1. 04/09/2021 agitated during the night requiring a dose of Haldol.lethargic, more alert this morning eyes opened, attempts to answer questions by mumbling. Aspiration and seizure precautions maintained. No seizure activity reported. Maintained on IV fluids of D5 W with sodium normalized. Blood sugars controlled. BUN 53, Creatinine up to 1.96. Chest x-ray reporting diffuse interstitial and perihilar changes, continued moderate left pleural effusion with adjacent atelectasis, consolidation similar, increasing opacity at right base, possible CHF, consistent with pneumonia.maintained on Zosyn.Afebrile, WBC decreased, 13.4. Maintained on high flow nasal cannula 15 L, maintaining O2 sats in the high 80s. Telemetry sinus rhythm,Hypotensive, systolic blood pressure in the 80s. 04/10/2021 significant clinical improvement. this morning much more awake ,alert and oriented 3, communicating appropriately, answers questions appropriately. Very weak, moves all 4 extremities. Speech therapy at bedside swallow evaluation pending. Oxygen has been decreased down to 10 L nasal cannula high flow, maintaining O2 sats in the 90s. Chest x-ray reporting patchy perihilar and basilar infiltrates, small left-sided pleural effusion. Repeat brain CT completed yesterday reporting stable from comparison. Sodium 144 on IV fluids of D5W. Creatinine 1.98. Bicarb 18. Continues on Zosyn, nebulized bronchodilators. Afebrile, WBC 16. 04/14/2021 ICU over flow.diuresing well on Lasix IV push with 24-hour I&O reflecting a negative fluid balance. Oxygen weaned down to 4 L nasal cannula, maintaining O2 sats in the 90s., No tremors/shakes. Occasional cough. Afebrile, WBC trending down ,13.8. Tolerating diet with no nausea vomiting. Renal function improving, creatinine down to 1.57. Objective - Vital Signs Vital signs: Vital Signs Temp 98.3 F 04/14/21 08:00 Pulse 92 04/14/21 12:31 Resp 19 04/14/21 08:00 BP 117/81 04/14/21 08:00 Pulse Ox 95 04/14/21 08:00 Intake & Output 04/13/21 04/14/21 04/14/21 18:59 06:59 18:59 Intake Total 800 100 Output Total 600 700 350 Balance 200 -600 -350 Weight 98.1 kg 97.2 kg Intake: Intake, IV Titration 100 Amount Piperacillin-Tazobactam 3 100 .375 gm In Sodium Chloride 0.9% 100 ml @ 25 mls/hr IVPB Q8H [facility] Rx#: [id number] Oral 800 Output: Urine 600 700 350 Other: Voiding Method Indwelling Catheter Indwelling Catheter Indwelling Catheter - Exam General: Sitting up in bed, alert and oriented 3, no acute distress, weak Eyes: PERRL, EOMI, conjunctiva normal HENT: normocephalic, mucus membranes moist Neck: supple, no JVD Lungs: Lungs diminished with fine bibasilar crackles. CV: Regular rate and rhythm, no murmur. Peripheral pulses 2+ Abdomen: soft,distended, no organomegaly, positive bowel sounds Skin: warm and dry, no rashes Neuro: Cranial nerves 2 through 12 grossly intact. Moves all 4 extremities. Generalized weakness with Sensation intact. - Labs CBC & Chem 7: 04/14/21 03:26 04/14/21 03:26 Labs: Abnormal Lab Results - Last 24 Hours (Table) 04/14/21 04/14/21 04/14/21 Range/Units 03:26 03:26 03:26 WBC 13.8 H (3.8-10.6) k/uL RBC 2.85 L (4.30-5.90) m/uL Hgb 9.9 L (13.0-17.5) gm/dL Hct 31.9 L (39.0-53.0) % MCV 112.0 H (80.0-100.0) fL RDW 19.3 H (11.5-15.5) % Neutrophils # 12.9 H (1.3-7.7) k/uL Lymphocytes # 0.4 L (1.0-4.8) k/uL Macrocytosis Marked A PT 13.0 H (9.0-12.0) sec INR 1.3 H (<1.2) Chloride 110 H (98-107) mmol/L Carbon Dioxide 20 L (22-30) mmol/L BUN 41 H (9-20) mg/dL Creatinine 1.57 H (0.66-1.25) mg/dL Glucose 156 H (74-99) mg/dL Assessment and Plan Assessment: 1. Alcohol withdrawal with seizure in a patient with alcohol dependence. 2. Acute kidney injury, secondary to alcohol abuse, ATN. 3. Acute Bilateral pneumonia possibly community-acquired, possibly aspiration, possible underlying pneumothorax. Chest x-ray reporting worsening. 4. Acute hypoxic respiratory failure secondary to the above, improving 5. Acute metabolic and toxic encephalopathy multifactorial, secondary to the above, improving 6. Elevated AST 7. Elevated lactic 8. Ascites secondary to EtOH, Chronic liver disease. 9. No code, no CPR, no intubation 10. Poor nutritional status secondary to chronic alcoholism 11. Chronic alcoholic liver disease 12. Hyperchloremic Hypernatremia, improving with sodium within normal limits 13. Medical debility, prolonged hospitalization, significant weakness Plan: Continue on current medication regime ,monitoring and symptomatic treatment. Maintain diuretics. Aggressive pulmonary toileting with continued titration of FiO2 .PT/OT -patient will require subacute rehab at discharge . Discharge planning in progress for subacute rehab on Tuesday. The impression and plan of care has been dictated as directed. : I performed a history and examination of this patient, discussed the same with the dictator. I agree with the dictator's note ,documented as a scribe. Any additional findings or plans will be noted.
[2021-04-15 00:21] LABS: Hepatitis A Antibody IgM Non-Reactive (Non-Reactive); Hepatitis B Core IgM Non-Reactive (Non-Reactive); Hepatitis B Surface Antigen Non-Reactive (Non-Reactive); Hepatitis C IgG Antibody Non-Reactive (Non-Reactive)
[2021-04-15] MEDS: PIPERACILLIN-TAZOBACTAM 3.375 GM in SODIUM CHLORIDE 0.9% 100 ML IVPB SCH ×2 (00:42→09:40)
[2021-04-15] MEDS: IPRATROPIUM-ALBUTEROL 3 ML NEB INHALATION PRN (03:17)
[2021-04-15] MEDS: IPRATROPIUM-ALBUTEROL 3 ML NEB INHALATION SCH ×4 (07:43→19:41)
[2021-04-15 09:00] LABS: Albumin 2.7 g/dL (3.5-5.0); Calcium 8.6 mg/dL (8.4-10.2); Total Bilirubin 2.6 mg/dL (0.2-1.3); Total Protein 5.7 g/dL (6.3-8.2)
[2021-04-15 09:18] LABS: Potassium 3.9 mmol/L (3.5-5.1)
--- NOTE | 2021-04-15 09:19 | XR ---
EXAMINATION TYPE: XR chest 1V portable DATE OF EXAM: 04/15/2021 COMPARISON: 04/12/2021 INDICATION: Aspiration pneumonia TECHNIQUE: Single frontal view of the chest is obtained. FINDINGS: The heart size is normal. The pulmonary vasculature is normal. Previous left upper lobe infiltrate has largely resolved. There is developing left lower lobe infiltr ate. Small effusion may be present with silhouetting of the diaphragm. Right lower lung field infiltr ate is improving. IMPRESSION: 1. Worsening left lower lobe infiltrate. Small left pleural effusion may be present. 2. Improving right lower lobe infiltrate left upper lobe infiltrates.
[2021-04-15] MEDS: PANTOPRAZOLE 40 MG/10 ML VIAL IV SCH (09:40)
[2021-04-15] MEDS: THIAMINE 100 MG TAB PO SCH (09:40)
[2021-04-15] MEDS: FUROSEMIDE 10 MG/ML 4 ML VIAL IV SCH ×2 (09:40→20:41)
[2021-04-15] MEDS: ENOXAPARIN 40 MG/0.4 ML SYRINGE SQ SCH (09:40)
[2021-04-15] MEDS: predniSONE 10 MG TAB PO SCH (09:40)
[2021-04-15] MEDS: SODIUM BICARBONATE TAB 650 MG TAB PO SCH ×2 (09:40→20:41)
--- NOTE | 2021-04-15 10:21 | P.DS ---
Providers Date of admission: 04/02/21 07:29 Expected date of discharge: 04/15/21 Attending physician: Pete Pro MD Consults: 04/01/21 17:10 Consult Physician Routine Consulting Provider: Celso Presley Consult Reason/Comments: seizure Do you want consulting provider notified?: Yes 04/01/21 18:15 Consult Physician Stat Consulting Provider: Neri Presley Consult Reason/Comments: icu management Do you want consulting provider notified?: Already Contacted 04/11/21 09:37 Consult Physician Routine Consulting Provider: Sosa Roldan Consult Reason/Comments: Ascites, abn LFTs Do you want consulting provider notified?: Yes Primary care physician: Pete Pro MD Hospital Course: Final Diagnoses: 1. Alcohol withdrawal with seizure in a patient with alcohol dependence, resolved. 2. Acute kidney injury, secondary to alcohol abuse, ATN, improving 3. Acute Bilateral pneumonia possibly community-acquired, possibly aspiration, possible underlying pneumothorax. 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 4. Acute hypoxic respiratory failure secondary to the above, improving 5. Acute metabolic and toxic encephalopathy multifactorial, secondary to the above, improving 6. Elevated AST 7. Elevated lactic 8. Ascites secondary to EtOH, Chronic liver disease. 9. No code, no CPR, no intubation 10. Poor nutritional status secondary to chronic alcoholism 11. Chronic alcoholic liver disease 12. Hyperchloremic Hypernatremia, resolved. 13. Medical debility, prolonged hospitalization, significant weakness Hospital course:Neri Kurtz is a 70 yo M with PMH of alcoholism, drinks a fifth of whiskey daily who presented to the ED with increasing weakness and falls at home. He states that he had not been feeling like himself, stumbling and after falling at home he decided to come to the ED. He denies nausea, vomiting or diarrhea. He does endorse cough. Pt denies sweats or tremors. On presentation pt hypertensive, labs with Hgb 12, Cr 1.8, lactic 4. AST elevated, trop 0.04, BNP 3300. CXR with L basilar infiltrate. 04/02/2021 yesterday afternoon discovered to be nearly obtunded,lethargic, minimally responsive, received IV push Lasix and transferred to ICU with suspicions of EtOH seizures. Maintained on seizure precautions with seizure pads. Neurology consult in place, recommendations pending. Continues on IV fluid resuscitation, Haldol and CIWA protocol,recent seawall score 17. Remains lethargic, minimally conversant. Yesterday reported he drinks a gallon of whiskey daily. Brain CT for cerebral atrophy with no acute intracranial abnormality, atrophy increased compared to prior exam. ABGs noted. Chest x-ray reporting increasing left lower lobe pneumonia. Maintaining O2 sats in the 90s on 4 L nasal cannula. Pro-calcitonin elevated, 0.31. Maintained on azithromycin, ceftriaxone. Afebrile, normal WBC. Abdominal x-ray reported limited exam, nonacute, no free air, multiple old left-sided rib fractures. Abdominal ultra sound reporting ascites. Troponin 0.039, 0.038, 0.031. Hemoglobin 9.9, platelets 263, INR 2.5. Potassium 3.2, magnesium 1.9, creatinine 1.5. Alk phos trending down. 04/03/2021 continues on CIWA protocol, lethargic, maintained on 10 L high flow nasal cannula maintaining O2 sats in the 90s, respiratory rate in the 20s. Afebrile, WBC increased ,16.9. Creatinine 1.41. Chest x-ray reporting new extensive airspace disease in the right upper and midlung zone, left basilar pleural pressure multiple disease on with possible deep sulcus and pneumothorax. Maintained on Rocephin and Zithromax, nebulized bronchodilators, IV steroids. 04/06/2021 significantly lethargic, nearly obtunded does not open eyes to his name, withdraws from noxious stimuli only. Seizure and aspiration precautions ma intained. Continues on nebulized bronchodilators, steroids. maintained on 15 L high flow nasal cannula/ nonrebreather, maintaining O2 sats in the 90s, tachypneic respiratory rate 20-27. Chest x-ray reporting continued bilateral airspace disease left greater than right with interval worsening on the left, suggesting possibility of underlying pneumothorax. Continues on CIRI protocol, Zosyn. Afebrile, WBC increased to 21.8, blood cultures negative. Hemoglobin 9.5, platelets 335. Sodium increased to 148, bicarb 17, BUN 32, creatinine up to 1.32. Hospice consult placed as per patient's nephew. Case management disclosed that the nephew is actually not family but very close friend, who states he has medical DPOA papers and is attempting to locate them. In the meanwhile patient has estranged children, whereabouts are unknown. 04/07/2021 condition unchanged, maintained on 100% nonrebreather, maintained on IV antibiotics. Afebrile, worsening leukocytosis, WBC up to 23.9. Sodium wo rsening up to 150, renal function worsening creatinine up to 1.43. Emergent guardianship in progress. 04/08/2021 maintained on Zosyn, IV fluid hydration with D5W. Sodium 150. continues with alcoholic delirium. Ativan discontinued, patient restless, moaning, mumbling. Maintain him on percent nonrebreather/high flow nasal cannula maintaining O2 sats in the 90s. Chest x-ray reporting worsening bilateral lung infiltrates with increasing moderate left pleural effusion. Renal function worsening, creatinine up to 1.83. Bicarb 18. LFTs elevated/T bili up to 3.2. Afebrile, WBC increased ,24.1. 04/09/2021 agitated during the night requiring a dose of Haldol.lethargic, more alert this morning eyes opened, attempts to answer questions by mumbling. Aspiration and seizure precautions maintained. No seizure activity reported. Maintained on IV fluids of D5 W with sodium normalized. Blood sugars controlled. BUN 53, Creatinine up to 1.96. Chest x-ray reporting diffuse interstitial and perihilar changes, continued moderate left pleural effusion with adjacent atelectasis, consolidation similar, increasing opacity at right base, possible CHF, consistent with pneumonia.maintained on Zosyn.Afebrile, WBC decreased, 13.4. Maintained on high flow nasal cannula 15 L, maintaining O2 sats in the high 80s. Telemetry sinus rhythm,Hypotensive, systolic blood pressure in the 80s. 04/10/2021 significant clinical improvement. this morning much more awake ,alert and oriented 3, communicating appropriately, answers questions appropriately. Very weak, moves all 4 extremities. Speech therapy at bedside swallow evaluation pending. Oxygen has been decreased down to 10 L nasal cannula high flow, maintaining O2 sats in the 90s. Chest x-ray reporting patchy perihilar and basilar infiltrates, small left-sided pleural effusion. Repeat brain CT completed yesterday reporting stable from comparison. Sodium 144 on IV fluids of D5W. Creatinine 1.98. Bicarb 18. Continues on Zosyn, nebulized bronchodilators. Afebrile, WBC 16. 04/14/2021 ICU over flow.diuresing well on Lasix IV push with 24-hour I&O reflecting a negative fluid balance. Oxygen weaned down to 4 L nasal cannula, maintaining O2 sats in the 90s., No tremors/shakes. Occasional cough. Afebrile, WBC trending down ,13.8. Tolerating diet with no nausea vomiting. Renal function improving, creatinine down to 1.57. Significant clinical improvement. Cleared by all consults for discharge. Completed antibiotic therapy as per pulmonary. Patient will be discharged today to [facility] in a stable condition with guarded prognosis. The impression and plan of care has been dictated as directed. : I performed a history and examination of this patient, discussed the same with the dictator. I agree with the dictator's note ,documented as a scribe. Any additional findings or plans will be noted. Patient Condition at Discharge: Stable Plan - Discharge Summary Discharge Rx Participant: Yes New Discharge Prescriptions: New Ipratropium-Albuterol Nebulize [Duoneb 0.5 mg-3 mg/3 ml Soln] 3 ml INHALATION Q4H PRN ml PRN Reason: Shortness Of Breath Or Wheezing Enoxaparin [Lovenox] 40 mg SQ DAILY syringe Sodium Bicarbonate Tab 650 mg PO BID tab Folic Acid 1 mg PO DAILY #30 tablet Pantoprazole Sodium [Protonix] 40 mg PO DAILY #1 tablet. Ipratropium-Albuterol Nebulize [Duoneb 0.5 mg-3 mg/3 ml Soln] 3 ml INHALATION RT-QID ml predniSONE 10 mg PO DIRECTED #18 tab Acetaminophen Tab [Tylenol] 650 mg PO Q6HR PRN tab PRN Reason: Fever And/ Or Pain Thiamine [Vitamin B-1] 100 mg PO DAILY tab Lactose-Reduced Food [Ensure Plus] 1 can PO TID BETWEEN MEALS #90 can Multivitamins, Thera [Multivitamin (formulary)] 1 tab PO DAILY #30 tablet Furosemide [Lasix] 40 mg PO DAILY #30 tablet Discharge Medication List Acetaminophen Tab [Tylenol] 650 mg PO Q6HR PRN tab 04/15/21 [Rx] Enoxaparin [Lovenox] 40 mg SQ DAILY syringe 04/15/21 [Rx] Folic Acid 1 mg PO DAILY #30 tablet 04/15/21 [Rx] Furosemide [Lasix] 40 mg PO DAILY #30 tablet 04/15/21 [Rx] Ipratropium-Albuterol Nebulize [Duoneb 0.5 mg-3 mg/3 ml Soln] 3 ml INHALATION Q4H PRN ml 04/15/21 [Rx] Ipratropium-Albuterol Nebulize [Duoneb 0.5 mg-3 mg/3 ml Soln] 3 ml INHALATION RT-QID ml 04/15/21 [Rx] Lactose-Reduced Food [Ensure Plus] 1 can PO TID BETWEEN MEALS #90 can 04/15/21 [Rx] Multivitamins, Thera [Multivitamin (formulary)] 1 tab PO DAILY #30 tablet 04/15/21 [Rx] Pantoprazole Sodium [Protonix] 40 mg PO DAILY #1 tablet.dr 04/15/21 [Rx] Sodium Bicarbonate Tab 650 mg PO BID tab 04/15/21 [Rx] Thiamine [Vitamin B-1] 100 mg PO DAILY tab 04/15/21 [Rx] predniSONE 10 mg PO DIRECTED #18 tab 04/15/21 [Rx] Follow up Appointment(s)/Referral(s): Pete Pro MD [Primary Care Provider] - 3 Days Activity/Diet/Wound Care/Special Instructions: [facility] CBC,CMP, PT/INR in 3 days Discharge Disposition: TRANSFER TO SNF/F
--- NOTE | 2021-04-15 11:17 | P.PN ---
Subjective Progress Note Date: 04/15/21 Principal diagnosis: Acute alcohol withdrawal and aspiration pneumonia This is a 70-year-old male patient with a history of hypertension and alcohol abuse. He did have an ongoing weakness and falls at home. He had been drinking daily and not eating much. He presented to the emergency room yesterday with shortness of breath and feelings of dehydration. X-ray of the left hip revealed no fracture. X-ray of the pelvis reveals no fracture. X-ray of the abdomen revealed nonacute abdomen. No free air. Computed tomography scan of the brain revealed cerebral atrophy. No acute intracranial abnormalities. Chest x-ray revealed left greater than right bibasilar pleural parenchymal disease. He was admitted to the regular medical floor. Last evening approximately 5:30 the patient was found on the floor lethargic and minimally responsive. He was only arousing to loud questions. ABGs, chest x-ray and labs were drawn. He was given IV Lasix and transferred to the intensive care unit for concerns regarding possible seizure. He is seen today in consultation. He is currently resting in bed. He is barely arousable. He is mumbling. He is maintaining O2 saturations in the 90s on 4 L/m per nasal cannula. He does have 0.9 normal saline at 130 mL by mouth per hour. Suspect alcohol withdrawal syndrome. He is on the CIWA protocol. Abdomen is distended. He is currently on ceftriaxone and azithromycin. Lovenox for DVT prophylaxis. Haldol for agitation. Thiamine. ABGs revealed a pO2 of 78, pCO2 22, pH 7.46 on 32% FiO2. White count 8.1. Hemoglobin 9.9. MCV 108.9. Platelets 263. Sodium 136. Potassium 3.2. Creatinine 1.58. ProBNP 3300. Troponin negative. Serum alcohol level was less than 10. INR 2.5. On 04/03/2021 patient seen in follow-up in the intensive care unit. He is short of breath, and audibly wheezy during today's exam, he is on 10 L of oxygen this morning, with a pulse ox of 93-95%, he is currently on 0.9 normal saline at a rate of 1:30 ML per hour, he remains on CIWA protocol for acute alcohol withdrawal, he received a total of 6 mg of Ativan overnight in addition to haldol. he is confused, he is lethargic, he is not following commands. Lung sounds reveal equal air entry bilaterally, with diffuse wheezing throughout.remains on antibiotics in the combination of Zithromax and Rocephin, we added back pain treatments and IV steroids this morning. today's chest x-ray shows new extensive airspace disease in the right upper and mid lung zone, left basilar pleural parenchymal disease was again seen with possible deep sulcus and pneumothorax could not be definitely excluded. today's labs have been reviewed, and there has been an increase in patient's white blood cell count up to 16.9, hemoglobin is 11.3, sodium is 139, potassium is 4.5, chloride is 114, CO2 is 16, BUN of 27, creatinine is 1.41. IV fluids infusing at a rate of 1:30 ML per hour, patient has been nothing by mouth in view of his decreased level of consciou sness, his had limited oral intake, his urine output has been in the order of 25-30 ML per hour. On 04/04/2021 patient seen in follow-up in the intensive care unit, he remains poorly responsive, breathing spontaneously, he is currently on 11 L per high flow nasal cannula, his pulse ox is 91-97%, he sounds less bronchospastic on today's exam, lung sounds reveal diffuse rhonchi, and some scattered wheezes. Febrile overnight, hemodynamically has been stable, he remains on 0.9 normal saline at a rate of 1:30 ML per hour, his been kept nothing by mouth in view of his decreased level of consciousness. His CODE STATUS is DO NOT RESUSCITATE, no new chest x-ray today, yesterday's chest x-ray showed new extensive airspace disease in the right upper and right midlung zone and left basilar pleural parenchymal disease. Possibility of aspiration pneumonia is suspected, his antibiotic was switched to Zosyn. His white blood cell count is improving on today's labs. He is not able to produce a sputum specimen for culture, his blood cultures have been negative thus far. He is less tachycardic, he is in sinus mechanism with a controlled rate, he was started on steroids and breathing treatments, DVT and GI prophylaxis. Remains on CIWA protocol, received 2 mg of Ativan this morning. Remains calm, not opening eyes to verbal or tactile stimulation. On 04/05/2021 patient seen in follow-up in the intensive care unit, this morning his mentation is still Altered, he is poorly responsive, breathing spontaneously, he is on 15 L of oxygen per high flow nasal cannula with O2 sat of 90-94%, patient has been afebrile, hemodynamically he is been stable, he is actually a bit hypertensive this morning, with a blood pressure of 170/91. He remains on 0.9 normal saline at 130 ML per hour, and he is significantly in positive fluid balance. He is lethargic, he has not been able to clear any secretions, lung sounds reveal diffuse rhonchi, this chest x-ray shows diffuse bilateral opacities with interval worsening, left lower lobe collapse, small left pleural effusion slightly increased in size compared to prior. No pneumothorax. She remains on IV steroids, nebulized bronchodilators, and Zosyn. Remains on CIWA protocol. His CIWA scale is 8 or 9, he did receive 1 dose of Ativan early this morning. Hospice and palliative care consultation was placed after discussing chest condition with the patient's nephew Og, who agreed to hospice. For now patient continues on supportive treatment. 04/06/2021, the patient is being seen in follow-up. This is an alcoholic 70-year-old patient with known history of chronic alcoholic liver disease and chronic debility who presented with hypoxic respiratory failure, altered mental status and aspiration pneumonia. The patient is still doing poorly. He remains on 15 L of oxygen by nasal cannula and is also on 100% nonrebreather facemask.. He remains on IV Zosyn. Hemodynamically stable. Quite lethargic. He remains on CIWA protocol. The patient is receiving supportive care in the ICU in preparation for hospice care at which the patient's family agreed regarding his advanced and debilitated condition. This morning, the patient continues to move 1. Unresponsive. Chest x-rays showing diffuse but the pulmonary infiltrates, there is right upper lobe pulmonary infiltrate in addition to extensive infiltration of the left lung with questionable left apical pneumothorax. There is an average seen in the periphery of the left upper lobe which obviously raises the concern for pneumothorax. Meanwhile, the patient remains on IV Zosyn for now. Blood cultures of been negative. On the blood work today white cell count is 21 which is higher compared to yesterday and the sodium level is up to 148 with a serum bicarb of 17 and a creatinine of 1.3. IV fluids are in the form of 0.9 at the rate of 20 mL an hour. 04/07/2021, the patient remains extremely lethargic, nonresponsive, he continues to moan, may withdraw to deep painful stimulation and grimaces to deep painful stimulation. Cannot hold a conversation. Still 100% nonrebreather facemask. His ammonia level was low. CAT scan of the brain that was done on 04/01/2021 sh owed chronic atrophy. No acute abnormalities were seen on the CAT scan of the brain. Meanwhile, the patient continues to be altered neurologically. At the same time, the patient's is having an acute hypoxic respiratory failure with diffuse but the pulmonary infiltrates with upper lobe predominance and a developing left sided pleural effusion. The patient is suspected to have aspiration. The patient is on IV Zosyn. Possibility of an acute lung injury cannot be completely excluded. There was a questionable pneumothorax on yesterday'sx, not seen on today's chest x-ray. I further note, they patient's sodium level is up to 151 and his potassium level is at 5.1. The patient also has developed an acute kidney injury and creatinine is at 1.4 with a BUN of 43. Note that this creatinine is slightly improved compared to the initial creatinine, admission which was at 1.8. There may be a component of chronic kidney disease. His white cell count is currently at 23 which is slightly highe r compared to yesterday. As such, the patient remains encephalopathy worsening hypoxemic respiratory failure. He remains on IV Zosyn. He remains on IV fluid with normal saline at the rate of 75 mL an hour. He remains on IV Solu Medrol 60 mg every 6 hours. He is on DuoNeb nebulized treatments around the clock. He has not received any Ativan overnight. He remains on IV Protonix 04/08/2021, the patient continues to moan. He mumbles. He is speaking a few sentences. He can follow simple commands. He is extremely lethargic and weak. I with a slightly more alert compared to yesterday. He remains on a 1 cm facemask in addition to high flow oxygen. Chest x-ray remained unchanged with d iffuse bilateral pulmonary infiltrates and a left-sided pleural effusion. He remains on IV Zosyn. His sodium level is elevated at 150s. The patient is on D5 water. Creatinine is up to 1.8. He is holding his own blood pressure. Hemodynamically stable. Urine output is in order of 100 mL an hour. Her activity. No other issues for now. He remains nothing by mouth. He remains on IV Protonix. Blood work shows a sodium of 150 with a potassium of 3.7. Serum bicarb is at 18. BNP is 3 with a creatinine of 1.8. LFTs remained abnormal. White cell count is at 24.1. 04/09/2021, I'm seeing this patient for a follow-up. I would say he is doing slow progress in terms of his mentation. He remains extremely lethargic, at times agitated, sees most of the time of mumbles and moans constantly. Nevertheless, when asked simple questions such as moving his toes or hands, he would comply. He has a very weak grasp using his hands. Unable to raise his arms against gravity. He is trying to speak. We can sometimes understand few words. For the most part, his speech is still garbled. No seizure activity. No neck stiffness. No fever. No aspiration. He remains nothing by mouth. He remains on D5 water at the rate of 150 mL an hour and his sodium level is down to 143. His BUN is a 53 with a creatinine of 1.9 and this is essentially stable compared to yesterday. His urine output is in order of 30 mL an hour. His white cell count is down to 13.4. As for his follow-up chest x-ray from today, there are some improvement in the volume status and infiltration. There is still diffuse interstitial and perihilar infiltrate and a left-sided pleural effusion. There is also increased opacity in the right lung base consistent with pneumonia. The overall picture is consistent with pneumonia with possibly component of CHF. His ammonia level has been low. Overnight, he became more agitated. He received a dose of Haldol around 9 PM. Subsequently because of increased agitation, he was briefly placed on Precedex which made him hypotensive and bradycardic and this was discontinued. Since then, the patient has not required any further sedatives. Earlier this morning, I took him off the nonrebreather facemask. He is on high flow oxygen at 15 L and his pulse ox is currently ranging at around 88-89%. Most recent BP is 80/53. No significant tachycardia. Cardiac rhythm is sinus. No tachypnea. No symptoms to swelling in lower extremities. 04/10/2021, the patient is much more awake and communicating and following commands and answering questions appropriately. He is not taking any sedative medications. Is gradually recovering. Mentation. He is lethargic but he is obviously awake and alert and following commands and answering questions appropriately. He is also having a bedside swallow evaluation and according to the therapist is able to swallow appropriately. Was taken off the 100% nonrebreather facemask and the patient is currently on a oxygen by nasal cannula high flow at 10 L. The patient is still IV fluids with D5 water at the rate of 75 mL an hour. Sodium level is at 144. Creatinine is at 50 with a creatinine of 1.9. Serum bicarb is a 16. White cell count and 16 with a hemoglobin of 9.4. Platelets at 197. The follow-up chest exit needs to be done today. In terms of medication, the patient is on Lovenox 40 mg subcu for DVT prophylaxis. IV Zosyn regarding aspiration pneumonia. He is also taking DuoNeb nebulized treatments around the clock. No other significant events otherwise for now. He is quite pleasant. 04/11/2021, the patient is on 8 L of oxygen by nasal cannula. Remains alert and awake. Hemodynamically stable. Afebrile. No respiratory difficulties. Tolerating his diet. His blood work shows some ongoing issues with some non- anion gap metabolic acidosis.. The serum bicarbonate remains low at 19. Meanwhile, the renal function is stable with a creatinine of 1.8. Sodium is at 140. His CBC showed white cell count 17.2 with hemoglobin of 9.4. Note that the patient is still coagulopathic related to his chronic alcoholic liver disease. INR was at 2 with a PT of 19.2 suggestive of chronic hepatic dysfunct ion. No signs of encephalopathy. No signs of any fluid overload. He is on DuoNeb nebulized treatments around the clock. He remains on Aredia prophylaxis. He is also on IV Zosyn. The chest x-ray in comparison was done yesterday and it showed some interval improvement in the bilateral pulmonary infiltrates which we assume it's related to aspiration pneumonia. There is still some left-sided pleural effusion and patchy perihilar pulmonary infiltrates in addition to bibasilar pulmonary infiltrates. 04/12/2021, the patient is seen in a FU no active issues. His been downgraded and he is awaiting a medical floor bed. He is not having any respiratory distress. His pulse ox currently is at 94% on oxygen at 8 L. His chest x-ray from today is showing diffuse bilateral pulmonary infiltrates consistent with aspiration pneumonia. There is multifocal areas of infiltration and small effusions and overall infiltrates are essentially unchanged. Clinically however the patient is improving and oxygenation is improved. He remains on IV Zosyn. Is able to swallow without any aspiration. Mental status is normalized. Creatinine is also improving and is currently down to 1.8. Correlation profile is improving INR is down to 1.5 with a PT of 15. White cell count is down to 17.2. His serum bicarb is at 19 consistent with non-anion gap metabolic acidosis. Bilirubin is at 8.8 with an alkaline phosphatase of 618 and AST of 97 with an ALT of 34. Serum albumin is at 2.1. Ultrasound of the gallbladder was done and the patient was found to have sludge in the gallbladder. Common bile duct was measuring 6 mm in size. Liver was consistent with cirrhosis and the patient had some mild ascites. The patient was seen by gastroenterology. Echo showed a preserved LV function with an ejection fraction of 50-55%. No evidence of any cardiomyopathy with valvular heart disease. Patient was reevaluated today on 04/13/2021, patient remains in the ICU, generally weak, on 7 L nasal cannula, he is awake, cooperative, remains on antibiotics for presumptive aspiration pneumonia. Chest x-ray is showing some improvement in his bilateral infiltrates. Patient is now overflow in the ICU, and I plan to transfer the patient to a regular medical floor. No labs were done today. His last WBC count 2 days ago was improving. Electrolytes are improving and he profile was noted to be improving. Reevaluated today on 04/14/2021, remains in the ICU as an overflow, presently on 6 L nasal cannula, and his O2 saturation is 95%. Patient is being treated for aspiration pneumonia, at presentation was presentation of alcohol withdrawal. Remains on diuretics in the form of Lasix 40 mg every 12 hours, patient will eventually need placement. Continues to have some edema abdominal distention and ascites. However overall the patient is improving, and feeling much better over the last few days. CBC is relatively unremarkable electrolytes are normal BUN is 41 and creatinine is down to 1.57, it was 1.87 few days ago. Chest x-ray from few days ago showed multifocal areas of infiltrates and small effusion Reevaluated today on 04/15/2021, patient remains as an overflow in the ICU, he is now on 4 L nasal cannula, O2 saturation is in the 90s, patient is eating, comfortable, in no distress, remains on diuretics, antibiotics, bronchodilators, and steroids. Renal functioning continues to improve. Chest x-ray showed significant improvement in his bilateral aspiration pneumonia. WBC count is 13.8, electrolytes are normal BUN is 46 creatinine 1.55. Objective - Vital Signs Vital signs: Vital Signs Temp 98 F 04/15/21 02:00 Pulse 95 04/15/21 11:09 Resp 18 04/15/21 11:09 BP 117/102 04/15/21 02:00 Pulse Ox 94 L 04/15/21 07:43 Intake & Output 04/14/21 04/15/21 04/15/21 18:59 06:59 18:59 Intake Total 520 Output Total 700 750 Balance -700 -230 Weight 97.2 kg Intake: IV 120 0.9 KVO 120 Oral 400 Output: Urine 700 750 Other: Voiding Method Indwelling Catheter Indwelling Catheter - Exam GENERAL EXAM: Revealed 70-year-old white male on 4 L nasal cannula, in no distress. HEAD: Normocephalic/atraumatic. EYES: Normal reaction of pupils, equal size. Conjunctiva pink, sclera white. NOSE: Clear with pink turbinates. THROAT: No erythema or exudates. NECK: No masses, no JVD, no thyroid enlargement, no adenopathy. CHEST: No chest wall deformity. Symmetrical expansion. LUNGS: Equal air entry diminished breath sounds at the bases no rhonchi no wheezes CVS: Regular rate and rhythm, normal S1 and S2, no gallops, no murmurs, no rubs ABDOMEN: Soft, nontender. No hepatosplenomegaly, normal bowel sounds, no guarding or rigidity. Suspect some ascites. EXTREMITIES: No clubbing, 1+ bipedal edema, no cyanosis, 2+ pulses and upper and lower extremities. MUSCULOSKELETAL: No deformities noted limitation in range of motion SKIN: No rashes CENTRAL NERVOUS SYSTEM: Awake, oriented 3, no gross focal deficits. Remained generally weak. - Labs CBC & Chem 7: 04/14/21 03:26 04/15/21 08:34 Labs: Abnormal Lab Results - Last 24 Hours (Table) 04/15/21 Range/Units 08:34 Sodium 136 L (137-145) mmol/L Carbon Dioxide 18 L (22-30) mmol/L BUN 46 H (9-20) mg/dL Creatinine 1.55 H (0.66-1.25) mg/dL Glucose 137 H (74-99) mg/dL Total Bilirubin 2.6 H (0.2-1.3) mg/dL Alkaline Phosphatase 610 H (38-126) U/L Total Protein 5.7 L (6.3-8.2) g/dL Albumin 2.7 L (3.5-5.0) g/dL Assessment and Plan Assessment: Impression: Acute hypoxic respiratory failure secondary to aspiration pneumonia Altered mental status secondary to acute metabolic encephalopathy, alcohol withdrawal, and aspiration pneumonia. Coagulopathy secondary to alcoholism and alcohol liver disease. Chronic alcoholic liver disease. Benign essential hypertension. Suspect ascites. Alcoholism and alcohol withdrawal on presentation. Recommendation: Continue present supportive care measures. Consider oral antibiotics/Augmentin for aspiration pneumonia Oral diuretics Lasix 40 mg by mouth daily We will clear the patient for possible discharge home today. Or placement in rehab. Time with Patient: Less than 30
--- NOTE | 2021-04-15 15:15 | CDI ---
Documentation Clarification Form Date: 04/15/2021 02:55:13 PM From: Rosaura Kaur CCS, CCDS Admit Date: 04/02/2021 07:29:00 AM Patient Name: Neri Kurtz Visit Number: [id number] Discharge Date: ATTENTION: The Clinical Documentation Specialists (CDI) and [facility] Coding Staff appreciate your assistance in clarifying documentation. Please respond to the clarification below the line at the bottom and electronically sign. The CDI & [facility] Coding staff will review the response and follow-up if needed. Please note: Queries are made part of the Legal Health Record. If you have any questions, please contact the author of this message via ITS. Dr. Pete Pro: Per the 04/15 Discharge Summary, the following is documented: Acute Bilateral Pneumonia possibly community-acquired, possibly Aspiration, Possible underlying Pneumothorax. Additional clarification regarding the Pneumonia diagnoses and Pneumothorax is requested. History/Risk Factors per the 04/01 H/P: Alcoholism, Falls, Hypertension, Smoker. Clinical Indicators: Presented to the ED on 04/01 via EMS after a fall & inability to stand. Multiple falls recently, increasingly weak. Presented with SOB & felt dehydrated, has a cough. ED Clinical Impression: Fall, Weakness, Dehydration, Acute Exacerbation COPD 04/01 VS: T 98.1, P 93, R 17 - 24, BP 171/88, PO 97 RA, BMI: 29.9 04/01 LAB: WBC (9.9), Hgb 12.1, Neut (77), PT 24.6, INR 2.5, APTT 31.0; Na 135, CO2 18, Creatinine 1.81, Lactic Acid: 3.9, 4.0, 3.7, 3.5, 2.4; Calcium 8.3, AST 64, Alk Phos 622, Trop 0.039, 0.038; Total Protein 6.2, Albumin 2.8. 04/01 Blood Gas: ABG: pH 7.46, pCO2 22, pO2 78, HCO3 15, Total CO2 16 04/01 UA: Cloudy, Trace Protein, Large Blood, RBC 98, WBC 7, Hyaline Casts 3 04/01 Serum Alcohol <10 04/01 CXR: Pleural thickening & infiltrate at the left lung base. Repeat CXR: Increasing LLL Pneumonia compared to CXR in am. 04/03 CXR: Possible deep sulcus & pneumothorax cannot be definitively excluded. 04/05 CXR: No Pneumothorax 04/07 CXR: Perihilar and upper lobe interstitial infiltrates persist. Persistent left lower lobe atelectasis and/or effusion. No definitive pneumothorax Treatment 04/01: HOB elevation, Seizure precautions, Lou catheter, IV fl Na Cl 1,000 mls @ 999 mls/hr q1H x3, INH Duoneb x1, IV Decadron x1, IV Toradol, IV Ativan x3, IV Narcan, Vit B1 (WA protocol), IV Zofran, IV Rocephin, IV fl Na Cl 1,000 mls @ 130 mls/hr q7H, IV Azithromycin, IV Solumedrol, IV Lasix, IV Haldol, IV KCL. Can you please clarify the following Diagnoses and specify if Present on Admission: [ ] Community Acquired Pneumonia [ ] Aspiration Pneumonia [ ] Pneumothorax [ ] Ruled In [ ] Ruled Out [ ] Other, please specify: [ ] Unable to Determine (Template Last Revised: November 2020) Community Acquired Pneumonia MTDD
[2021-04-15] MEDS: ACETAMINOPHEN TAB 325 MG TAB PO PRN (15:42)
[2021-04-16] MEDS: IPRATROPIUM-ALBUTEROL 3 ML NEB INHALATION SCH ×4 (07:30→19:32)
[2021-04-16] MEDS: predniSONE 10 MG TAB PO SCH (09:03)
[2021-04-16] MEDS: ENOXAPARIN 40 MG/0.4 ML SYRINGE SQ SCH (09:04)
[2021-04-16] MEDS: PANTOPRAZOLE 40 MG/10 ML VIAL IV SCH (09:04)
[2021-04-16] MEDS: THIAMINE 100 MG TAB PO SCH (09:04)
[2021-04-16] MEDS: SODIUM BICARBONATE TAB 650 MG TAB PO SCH ×2 (09:04→20:01)
[2021-04-16] MEDS: FUROSEMIDE 10 MG/ML 4 ML VIAL IV SCH ×2 (09:04→20:01)
[2021-04-16] MEDS: ACETAMINOPHEN TAB 325 MG TAB PO PRN (09:08)
--- NOTE | 2021-04-16 11:52 | P.PN ---
Subjective Progress Note Date: 04/16/21 Principal diagnosis: Acute alcohol withdrawal and aspiration pneumonia This is a 70-year-old male patient with a history of hypertension and alcohol abuse. He did have an ongoing weakness and falls at home. He had been drinking daily and not eating much. He presented to the emergency room yesterday with shortness of breath and feelings of dehydration. X-ray of the left hip revealed no fracture. X-ray of the pelvis reveals no fracture. X-ray of the abdomen revealed nonacute abdomen. No free air. Computed tomography scan of the brain revealed cerebral atrophy. No acute intracranial abnormalities. Chest x-ray revealed left greater than right bibasilar pleural parenchymal disease. He was admitted to the regular medical floor. Last evening approximately 5:30 the patient was found on the floor lethargic and minimally responsive. He was only arousing to loud questions. ABGs, chest x-ray and labs were drawn. He was given IV Lasix and transferred to the intensive care unit for concerns regarding possible seizure. He is seen today in consultation. He is currently resting in bed. He is barely arousable. He is mumbling. He is maintaining O2 saturations in the 90s on 4 L/m per nasal cannula. He does have 0.9 normal saline at 130 mL by mouth per hour. Suspect alcohol withdrawal syndrome. He is on the CIWA protocol. Abdomen is distended. He is currently on ceftriaxone and azithromycin. Lovenox for DVT prophylaxis. Haldol for agitation. Thiamine. ABGs revealed a pO2 of 78, pCO2 22, pH 7.46 on 32% FiO2. White count 8.1. Hemoglobin 9.9. MCV 108.9. Platelets 263. Sodium 136. Potassium 3.2. Creatinine 1.58. ProBNP 3300. Troponin negative. Serum alcohol level was less than 10. INR 2.5. On 04/03/2021 patient seen in follow-up in the intensive care unit. He is short of breath, and audibly wheezy during today's exam, he is on 10 L of oxygen this morning, with a pulse ox of 93-95%, he is currently on 0.9 normal saline at a rate of 1:30 ML per hour, he remains on CIWA protocol for acute alcohol withdrawal, he received a total of 6 mg of Ativan overnight in addition to haldol. he is confused, he is lethargic, he is not following commands. Lung sounds reveal equal air entry bilaterally, with diffuse wheezing throughout.remains on antibiotics in the combination of Zithromax and Rocephin, we added back pain treatments and IV steroids this morning. today's chest x-ray shows new extensive airspace disease in the right upper and mid lung zone, left basilar pleural parenchymal disease was again seen with possible deep sulcus and pneumothorax could not be definitely excluded. today's labs have been reviewed, and there has been an increase in patient's white blood cell count up to 16.9, hemoglobin is 11.3, sodium is 139, potassium is 4.5, chloride is 114, CO2 is 16, BUN of 27, creatinine is 1.41. IV fluids infusing at a rate of 1:30 ML per hour, patient has been nothing by mouth in view of his decreased level of consciou sness, his had limited oral intake, his urine output has been in the order of 25-30 ML per hour. On 04/04/2021 patient seen in follow-up in the intensive care unit, he remains poorly responsive, breathing spontaneously, he is currently on 11 L per high flow nasal cannula, his pulse ox is 91-97%, he sounds less bronchospastic on today's exam, lung sounds reveal diffuse rhonchi, and some scattered wheezes. Febrile overnight, hemodynamically has been stable, he remains on 0.9 normal saline at a rate of 1:30 ML per hour, his been kept nothing by mouth in view of his decreased level of consciousness. His CODE STATUS is DO NOT RESUSCITATE, no new chest x-ray today, yesterday's chest x-ray showed new extensive airspace disease in the right upper and right midlung zone and left basilar pleural parenchymal disease. Possibility of aspiration pneumonia is suspected, his antibiotic was switched to Zosyn. His white blood cell count is improving on today's labs. He is not able to produce a sputum specimen for culture, his blood cultures have been negative thus far. He is less tachycardic, he is in sinus mechanism with a controlled rate, he was started on steroids and breathing treatments, DVT and GI prophylaxis. Remains on CIWA protocol, received 2 mg of Ativan this morning. Remains calm, not opening eyes to verbal or tactile stimulation. On 04/05/2021 patient seen in follow-up in the intensive care unit, this morning his mentation is still Altered, he is poorly responsive, breathing spontaneously, he is on 15 L of oxygen per high flow nasal cannula with O2 sat of 90-94%, patient has been afebrile, hemodynamically he is been stable, he is actually a bit hypertensive this morning, with a blood pressure of 170/91. He remains on 0.9 normal saline at 130 ML per hour, and he is significantly in positive fluid balance. He is lethargic, he has not been able to clear any secretions, lung sounds reveal diffuse rhonchi, this chest x-ray shows diffuse bilateral opacities with interval worsening, left lower lobe collapse, small left pleural effusion slightly increased in size compared to prior. No pneumothorax. She remains on IV steroids, nebulized bronchodilators, and Zosyn. Remains on CIWA protocol. His CIWA scale is 8 or 9, he did receive 1 dose of Ativan early this morning. Hospice and palliative care consultation was placed after discussing chest condition with the patient's nephew Og, who agreed to hospice. For now patient continues on supportive treatment. 04/06/2021, the patient is being seen in follow-up. This is an alcoholic 70-year-old patient with known history of chronic alcoholic liver disease and chronic debility who presented with hypoxic respiratory failure, altered mental status and aspiration pneumonia. The patient is still doing poorly. He remains on 15 L of oxygen by nasal cannula and is also on 100% nonrebreather facemask.. He remains on IV Zosyn. Hemodynamically stable. Quite lethargic. He remains on CIWA protocol. The patient is receiving supportive care in the ICU in preparation for hospice care at which the patient's family agreed regarding his advanced and debilitated condition. This morning, the patient continues to move 1. Unresponsive. Chest x-rays showing diffuse but the pulmonary infiltrates, there is right upper lobe pulmonary infiltrate in addition to extensive infiltration of the left lung with questionable left apical pneumothorax. There is an average seen in the periphery of the left upper lobe which obviously raises the concern for pneumothorax. Meanwhile, the patient remains on IV Zosyn for now. Blood cultures of been negative. On the blood work today white cell count is 21 which is higher compared to yesterday and the sodium level is up to 148 with a serum bicarb of 17 and a creatinine of 1.3. IV fluids are in the form of 0.9 at the rate of 20 mL an hour. 04/07/2021, the patient remains extremely lethargic, nonresponsive, he continues to moan, may withdraw to deep painful stimulation and grimaces to deep painful stimulation. Cannot hold a conversation. Still 100% nonrebreather facemask. His ammonia level was low. CAT scan of the brain that was done on 04/01/2021 sh owed chronic atrophy. No acute abnormalities were seen on the CAT scan of the brain. Meanwhile, the patient continues to be altered neurologically. At the same time, the patient's is having an acute hypoxic respiratory failure with diffuse but the pulmonary infiltrates with upper lobe predominance and a developing left sided pleural effusion. The patient is suspected to have aspiration. The patient is on IV Zosyn. Possibility of an acute lung injury cannot be completely excluded. There was a questionable pneumothorax on yesterday'sx, not seen on today's chest x-ray. I further note, they patient's sodium level is up to 151 and his potassium level is at 5.1. The patient also has developed an acute kidney injury and creatinine is at 1.4 with a BUN of 43. Note that this creatinine is slightly improved compared to the initial creatinine, admission which was at 1.8. There may be a component of chronic kidney disease. His white cell count is currently at 23 which is slightly highe r compared to yesterday. As such, the patient remains encephalopathy worsening hypoxemic respiratory failure. He remains on IV Zosyn. He remains on IV fluid with normal saline at the rate of 75 mL an hour. He remains on IV Solu Medrol 60 mg every 6 hours. He is on DuoNeb nebulized treatments around the clock. He has not received any Ativan overnight. He remains on IV Protonix 04/08/2021, the patient continues to moan. He mumbles. He is speaking a few sentences. He can follow simple commands. He is extremely lethargic and weak. I with a slightly more alert compared to yesterday. He remains on a 1 cm facemask in addition to high flow oxygen. Chest x-ray remained unchanged with d iffuse bilateral pulmonary infiltrates and a left-sided pleural effusion. He remains on IV Zosyn. His sodium level is elevated at 150s. The patient is on D5 water. Creatinine is up to 1.8. He is holding his own blood pressure. Hemodynamically stable. Urine output is in order of 100 mL an hour. Her activity. No other issues for now. He remains nothing by mouth. He remains on IV Protonix. Blood work shows a sodium of 150 with a potassium of 3.7. Serum bicarb is at 18. BNP is 3 with a creatinine of 1.8. LFTs remained abnormal. White cell count is at 24.1. 04/09/2021, I'm seeing this patient for a follow-up. I would say he is doing slow progress in terms of his mentation. He remains extremely lethargic, at times agitated, sees most of the time of mumbles and moans constantly. Nevertheless, when asked simple questions such as moving his toes or hands, he would comply. He has a very weak grasp using his hands. Unable to raise his arms against gravity. He is trying to speak. We can sometimes understand few words. For the most part, his speech is still garbled. No seizure activity. No neck stiffness. No fever. No aspiration. He remains nothing by mouth. He remains on D5 water at the rate of 150 mL an hour and his sodium level is down to 143. His BUN is a 53 with a creatinine of 1.9 and this is essentially stable compared to yesterday. His urine output is in order of 30 mL an hour. His white cell count is down to 13.4. As for his follow-up chest x-ray from today, there are some improvement in the volume status and infiltration. There is still diffuse interstitial and perihilar infiltrate and a left-sided pleural effusion. There is also increased opacity in the right lung base consistent with pneumonia. The overall picture is consistent with pneumonia with possibly component of CHF. His ammonia level has been low. Overnight, he became more agitated. He received a dose of Haldol around 9 PM. Subsequently because of increased agitation, he was briefly placed on Precedex which made him hypotensive and bradycardic and this was discontinued. Since then, the patient has not required any further sedatives. Earlier this morning, I took him off the nonrebreather facemask. He is on high flow oxygen at 15 L and his pulse ox is currently ranging at around 88-89%. Most recent BP is 80/53. No significant tachycardia. Cardiac rhythm is sinus. No tachypnea. No symptoms to swelling in lower extremities. 04/10/2021, the patient is much more awake and communicating and following commands and answering questions appropriately. He is not taking any sedative medications. Is gradually recovering. Mentation. He is lethargic but he is obviously awake and alert and following commands and answering questions appropriately. He is also having a bedside swallow evaluation and according to the therapist is able to swallow appropriately. Was taken off the 100% nonrebreather facemask and the patient is currently on a oxygen by nasal cannula high flow at 10 L. The patient is still IV fluids with D5 water at the rate of 75 mL an hour. Sodium level is at 144. Creatinine is at 50 with a creatinine of 1.9. Serum bicarb is a 16. White cell count and 16 with a hemoglobin of 9.4. Platelets at 197. The follow-up chest exit needs to be done today. In terms of medication, the patient is on Lovenox 40 mg subcu for DVT prophylaxis. IV Zosyn regarding aspiration pneumonia. He is also taking DuoNeb nebulized treatments around the clock. No other significant events otherwise for now. He is quite pleasant. 04/11/2021, the patient is on 8 L of oxygen by nasal cannula. Remains alert and awake. Hemodynamically stable. Afebrile. No respiratory difficulties. Tolerating his diet. His blood work shows some ongoing issues with some non- anion gap metabolic acidosis.. The serum bicarbonate remains low at 19. Meanwhile, the renal function is stable with a creatinine of 1.8. Sodium is at 140. His CBC showed white cell count 17.2 with hemoglobin of 9.4. Note that the patient is still coagulopathic related to his chronic alcoholic liver disease. INR was at 2 with a PT of 19.2 suggestive of chronic hepatic dysfunct ion. No signs of encephalopathy. No signs of any fluid overload. He is on DuoNeb nebulized treatments around the clock. He remains on Aredia prophylaxis. He is also on IV Zosyn. The chest x-ray in comparison was done yesterday and it showed some interval improvement in the bilateral pulmonary infiltrates which we assume it's related to aspiration pneumonia. There is still some left-sided pleural effusion and patchy perihilar pulmonary infiltrates in addition to bibasilar pulmonary infiltrates. 04/12/2021, the patient is seen in a FU no active issues. His been downgraded and he is awaiting a medical floor bed. He is not having any respiratory distress. His pulse ox currently is at 94% on oxygen at 8 L. His chest x-ray from today is showing diffuse bilateral pulmonary infiltrates consistent with aspiration pneumonia. There is multifocal areas of infiltration and small effusions and overall infiltrates are essentially unchanged. Clinically however the patient is improving and oxygenation is improved. He remains on IV Zosyn. Is able to swallow without any aspiration. Mental status is normalized. Creatinine is also improving and is currently down to 1.8. Correlation profile is improving INR is down to 1.5 with a PT of 15. White cell count is down to 17.2. His serum bicarb is at 19 consistent with non-anion gap metabolic acidosis. Bilirubin is at 8.8 with an alkaline phosphatase of 618 and AST of 97 with an ALT of 34. Serum albumin is at 2.1. Ultrasound of the gallbladder was done and the patient was found to have sludge in the gallbladder. Common bile duct was measuring 6 mm in size. Liver was consistent with cirrhosis and the patient had some mild ascites. The patient was seen by gastroenterology. Echo showed a preserved LV function with an ejection fraction of 50-55%. No evidence of any cardiomyopathy with valvular heart disease. Patient was reevaluated today on 04/13/2021, patient remains in the ICU, generally weak, on 7 L nasal cannula, he is awake, cooperative, remains on antibiotics for presumptive aspiration pneumonia. Chest x-ray is showing some improvement in his bilateral infiltrates. Patient is now overflow in the ICU, and I plan to transfer the patient to a regular medical floor. No labs were done today. His last WBC count 2 days ago was improving. Electrolytes are improving and he profile was noted to be improving. Reevaluated today on 04/14/2021, remains in the ICU as an overflow, presently on 6 L nasal cannula, and his O2 saturation is 95%. Patient is being treated for aspiration pneumonia, at presentation was presentation of alcohol withdrawal. Remains on diuretics in the form of Lasix 40 mg every 12 hours, patient will eventually need placement. Continues to have some edema abdominal distention and ascites. However overall the patient is improving, and feeling much better over the last few days. CBC is relatively unremarkable electrolytes are normal BUN is 41 and creatinine is down to 1.57, it was 1.87 few days ago. Chest x-ray from few days ago showed multifocal areas of infiltrates and small effusion Reevaluated today on 04/15/2021, patient remains as an overflow in the ICU, he is now on 4 L nasal cannula, O2 saturation is in the 90s, patient is eating, comfortable, in no distress, remains on diuretics, antibiotics, bronchodilators, and steroids. Renal functioning continues to improve. Chest x-ray showed significant improvement in his bilateral aspiration pneumonia. WBC count is 13.8, electrolytes are normal BUN is 46 creatinine 1.55. Reevaluated today on 04/16/2021, remains in the ICU as an overflow, patient was supposed to be discharged to a [facility] facility yesterday, however waiting for authorization. [facility] patient is about the same, no major changes, he does have severe underlying COPD and history of recent aspiration pneumonia. However he is doing relatively well considering his multiple comorbidities. And I am still clearing the patient to be discharged to medical [place] today. Objective - Vital Signs Vital signs: Vital Signs Temp 97.8 F 04/16/21 01:31 Pulse 80 04/16/21 11:42 Resp 19 04/16/21 01:31 BP 127/90 04/16/21 01:31 Pulse Ox 93 L 04/16/21 01:31 Intake & Output 04/15/21 04/16/21 04/16/21 18:59 06:59 18:59 Intake Total 800 1080 Output Total 800 920 Balance 0 160 Weight 97.2 kg 94.8 kg Intake: IV 200 120 0.9 KVO 100 120 Piperacillin-Tazobactam 3 100 .375 gm In Sodium Chloride 0.9% 100 ml @ 25 mls/hr IVPB Q8H [facility] Rx#: [id number] Oral 600 960 Output: Urine 800 920 Other: Voiding Method Indwelling Catheter Indwelling Catheter - Exam GENERAL EXAM: Revealed 70-year-old white male on 4 L nasal cannula, in no distress. HEAD: Normocephalic/atraumatic. EYES: Normal reaction of pupils, equal size. Conjunctiva pink, sclera white. NOSE: Clear with pink turbinates. THROAT: No erythema or exudates. NECK: No masses, no JVD, no thyroid enlargement, no adenopathy. CHEST: No chest wall deformity. Symmetrical expansion. LUNGS: Equal air entry diminished breath sounds at the bases no rhonchi no wheezes CVS: Regular rate and rhythm, normal S1 and S2, no gallops, no murmurs, no rubs ABDOMEN: Suspect ascites. Soft, nontender. No hepatosplenomegaly, normal bowel sounds, no guarding or rigidity. EXTREMITIES: No clubbing, 1+ bipedal edema, no cyanosis, 2+ pulses and upper and lower extremities. MUSCULOSKELETAL: No deformities noted limitation in range of motion SKIN: No rashes CENTRAL NERVOUS SYSTEM: Awake, oriented 3, no gross focal deficits. Remained generally weak. - Labs CBC & Chem 7: 04/14/21 03:26 04/15/21 08:34 Assessment and Plan Assessment: Impression: Acute hypoxic respiratory failure secondary to aspiration pneumonia Altered mental status secondary to acute metabolic encephalopathy, alcohol withdrawal, and aspiration pneumonia. Coagulopathy secondary to alcoholism and alcohol liver disease. Chronic alcoholic liver disease. Benign essential hypertension. Suspect ascites. Alcoholism and alcohol withdrawal on presentation. Recommendation: Continue present supportive care measures. Clear to be discharged today. Oral diuretics Lasix 40 mg by mouth daily Time with Patient: Less than 30
[2021-04-16] MEDS: SIMETHICONE 80 MG CHEWABLE PO SCH ×3 (14:02→20:02)
[2021-04-17] MEDS: IPRATROPIUM-ALBUTEROL 3 ML NEB INHALATION SCH ×3 (07:26→16:29)
[2021-04-17] MEDS: THIAMINE 100 MG TAB PO SCH (08:31)
[2021-04-17] MEDS: PANTOPRAZOLE 40 MG/10 ML VIAL IV SCH (08:31)
[2021-04-17] MEDS: predniSONE 10 MG TAB PO SCH (08:31)
[2021-04-17] MEDS: SODIUM BICARBONATE TAB 650 MG TAB PO SCH (08:31)
[2021-04-17] MEDS: ENOXAPARIN 40 MG/0.4 ML SYRINGE SQ SCH (08:31)
[2021-04-17] MEDS: SIMETHICONE 80 MG CHEWABLE PO SCH ×3 (08:31→17:42)
[2021-04-17] MEDS: FUROSEMIDE 10 MG/ML 4 ML VIAL IV SCH (08:32)
[2021-04-17 10:20] VITALS: BMI 29.1
--- NOTE | 2021-04-17 11:18 | P.PN ---
Subjective Progress Note Date: 04/17/21 Principal diagnosis: Acute alcohol withdrawal and aspiration pneumonia This is a 70-year-old male patient with a history of hypertension and alcohol abuse. He did have an ongoing weakness and falls at home. He had been drinking daily and not eating much. He presented to the emergency room yesterday with shortness of breath and feelings of dehydration. X-ray of the left hip revealed no fracture. X-ray of the pelvis reveals no fracture. X-ray of the abdomen revealed nonacute abdomen. No free air. Computed tomography scan of the brain revealed cerebral atrophy. No acute intracranial abnormalities. Chest x-ray revealed left greater than right bibasilar pleural parenchymal disease. He was admitted to the regular medical floor. Last evening approximately 5:30 the patient was found on the floor lethargic and minimally responsive. He was only arousing to loud questions. ABGs, chest x-ray and labs were drawn. He was given IV Lasix and transferred to the intensive care unit for concerns regarding possible seizure. He is seen today in consultation. He is currently resting in bed. He is barely arousable. He is mumbling. He is maintaining O2 saturations in the 90s on 4 L/m per nasal cannula. He does have 0.9 normal saline at 130 mL by mouth per hour. Suspect alcohol withdrawal syndrome. He is on the CIWA protocol. Abdomen is distended. He is currently on ceftriaxone and azithromycin. Lovenox for DVT prophylaxis. Haldol for agitation. Thiamine. ABGs revealed a pO2 of 78, pCO2 22, pH 7.46 on 32% FiO2. White count 8.1. Hemoglobin 9.9. MCV 108.9. Platelets 263. Sodium 136. Potassium 3.2. Creatinine 1.58. ProBNP 3300. Troponin negative. Serum alcohol level was less than 10. INR 2.5. On 04/03/2021 patient seen in follow-up in the intensive care unit. He is short of breath, and audibly wheezy during today's exam, he is on 10 L of oxygen this morning, with a pulse ox of 93-95%, he is currently on 0.9 normal saline at a rate of 1:30 ML per hour, he remains on CIWA protocol for acute alcohol withdrawal, he received a total of 6 mg of Ativan overnight in addition to haldol. he is confused, he is lethargic, he is not following commands. Lung sounds reveal equal air entry bilaterally, with diffuse wheezing throughout.remains on antibiotics in the combination of Zithromax and Rocephin, we added back pain treatments and IV steroids this morning. today's chest x-ray shows new extensive airspace disease in the right upper and mid lung zone, left basilar pleural parenchymal disease was again seen with possible deep sulcus and pneumothorax could not be definitely excluded. today's labs have been reviewed, and there has been an increase in patient's white blood cell count up to 16.9, hemoglobin is 11.3, sodium is 139, potassium is 4.5, chloride is 114, CO2 is 16, BUN of 27, creatinine is 1.41. IV fluids infusing at a rate of 1:30 ML per hour, patient has been nothing by mouth in view of his decreased level of consciou sness, his had limited oral intake, his urine output has been in the order of 25-30 ML per hour. On 04/04/2021 patient seen in follow-up in the intensive care unit, he remains poorly responsive, breathing spontaneously, he is currently on 11 L per high flow nasal cannula, his pulse ox is 91-97%, he sounds less bronchospastic on today's exam, lung sounds reveal diffuse rhonchi, and some scattered wheezes. Febrile overnight, hemodynamically has been stable, he remains on 0.9 normal saline at a rate of 1:30 ML per hour, his been kept nothing by mouth in view of his decreased level of consciousness. His CODE STATUS is DO NOT RESUSCITATE, no new chest x-ray today, yesterday's chest x-ray showed new extensive airspace disease in the right upper and right midlung zone and left basilar pleural parenchymal disease. Possibility of aspiration pneumonia is suspected, his antibiotic was switched to Zosyn. His white blood cell count is improving on today's labs. He is not able to produce a sputum specimen for culture, his blood cultures have been negative thus far. He is less tachycardic, he is in sinus mechanism with a controlled rate, he was started on steroids and breathing treatments, DVT and GI prophylaxis. Remains on CIWA protocol, received 2 mg of Ativan this morning. Remains calm, not opening eyes to verbal or tactile stimulation. On 04/05/2021 patient seen in follow-up in the intensive care unit, this morning his mentation is still Altered, he is poorly responsive, breathing spontaneously, he is on 15 L of oxygen per high flow nasal cannula with O2 sat of 90-94%, patient has been afebrile, hemodynamically he is been stable, he is actually a bit hypertensive this morning, with a blood pressure of 170/91. He remains on 0.9 normal saline at 130 ML per hour, and he is significantly in positive fluid balance. He is lethargic, he has not been able to clear any secretions, lung sounds reveal diffuse rhonchi, this chest x-ray shows diffuse bilateral opacities with interval worsening, left lower lobe collapse, small left pleural effusion slightly increased in size compared to prior. No pneumothorax. She remains on IV steroids, nebulized bronchodilators, and Zosyn. Remains on CIWA protocol. His CIWA scale is 8 or 9, he did receive 1 dose of Ativan early this morning. Hospice and palliative care consultation was placed after discussing chest condition with the patient's nephew Og, who agreed to hospice. For now patient continues on supportive treatment. 04/06/2021, the patient is being seen in follow-up. This is an alcoholic 70-year-old patient with known history of chronic alcoholic liver disease and chronic debility who presented with hypoxic respiratory failure, altered mental status and aspiration pneumonia. The patient is still doing poorly. He remains on 15 L of oxygen by nasal cannula and is also on 100% nonrebreather facemask.. He remains on IV Zosyn. Hemodynamically stable. Quite lethargic. He remains on CIWA protocol. The patient is receiving supportive care in the ICU in preparation for hospice care at which the patient's family agreed regarding his advanced and debilitated condition. This morning, the patient continues to move 1. Unresponsive. Chest x-rays showing diffuse but the pulmonary infiltrates, there is right upper lobe pulmonary infiltrate in addition to extensive infiltration of the left lung with questionable left apical pneumothorax. There is an average seen in the periphery of the left upper lobe which obviously raises the concern for pneumothorax. Meanwhile, the patient remains on IV Zosyn for now. Blood cultures of been negative. On the blood work today white cell count is 21 which is higher compared to yesterday and the sodium level is up to 148 with a serum bicarb of 17 and a creatinine of 1.3. IV fluids are in the form of 0.9 at the rate of 20 mL an hour. 04/07/2021, the patient remains extremely lethargic, nonresponsive, he continues to moan, may withdraw to deep painful stimulation and grimaces to deep painful stimulation. Cannot hold a conversation. Still 100% nonrebreather facemask. His ammonia level was low. CAT scan of the brain that was done on 04/01/2021 sh owed chronic atrophy. No acute abnormalities were seen on the CAT scan of the brain. Meanwhile, the patient continues to be altered neurologically. At the same time, the patient's is having an acute hypoxic respiratory failure with diffuse but the pulmonary infiltrates with upper lobe predominance and a developing left sided pleural effusion. The patient is suspected to have aspiration. The patient is on IV Zosyn. Possibility of an acute lung injury cannot be completely excluded. There was a questionable pneumothorax on yesterday'sx, not seen on today's chest x-ray. I further note, they patient's sodium level is up to 151 and his potassium level is at 5.1. The patient also has developed an acute kidney injury and creatinine is at 1.4 with a BUN of 43. Note that this creatinine is slightly improved compared to the initial creatinine, admission which was at 1.8. There may be a component of chronic kidney disease. His white cell count is currently at 23 which is slightly highe r compared to yesterday. As such, the patient remains encephalopathy worsening hypoxemic respiratory failure. He remains on IV Zosyn. He remains on IV fluid with normal saline at the rate of 75 mL an hour. He remains on IV Solu Medrol 60 mg every 6 hours. He is on DuoNeb nebulized treatments around the clock. He has not received any Ativan overnight. He remains on IV Protonix 04/08/2021, the patient continues to moan. He mumbles. He is speaking a few sentences. He can follow simple commands. He is extremely lethargic and weak. I with a slightly more alert compared to yesterday. He remains on a 1 cm facemask in addition to high flow oxygen. Chest x-ray remained unchanged with d iffuse bilateral pulmonary infiltrates and a left-sided pleural effusion. He remains on IV Zosyn. His sodium level is elevated at 150s. The patient is on D5 water. Creatinine is up to 1.8. He is holding his own blood pressure. Hemodynamically stable. Urine output is in order of 100 mL an hour. Her activity. No other issues for now. He remains nothing by mouth. He remains on IV Protonix. Blood work shows a sodium of 150 with a potassium of 3.7. Serum bicarb is at 18. BNP is 3 with a creatinine of 1.8. LFTs remained abnormal. White cell count is at 24.1. 04/09/2021, I'm seeing this patient for a follow-up. I would say he is doing slow progress in terms of his mentation. He remains extremely lethargic, at times agitated, sees most of the time of mumbles and moans constantly. Nevertheless, when asked simple questions such as moving his toes or hands, he would comply. He has a very weak grasp using his hands. Unable to raise his arms against gravity. He is trying to speak. We can sometimes understand few words. For the most part, his speech is still garbled. No seizure activity. No neck stiffness. No fever. No aspiration. He remains nothing by mouth. He remains on D5 water at the rate of 150 mL an hour and his sodium level is down to 143. His BUN is a 53 with a creatinine of 1.9 and this is essentially stable compared to yesterday. His urine output is in order of 30 mL an hour. His white cell count is down to 13.4. As for his follow-up chest x-ray from today, there are some improvement in the volume status and infiltration. There is still diffuse interstitial and perihilar infiltrate and a left-sided pleural effusion. There is also increased opacity in the right lung base consistent with pneumonia. The overall picture is consistent with pneumonia with possibly component of CHF. His ammonia level has been low. Overnight, he became more agitated. He received a dose of Haldol around 9 PM. Subsequently because of increased agitation, he was briefly placed on Precedex which made him hypotensive and bradycardic and this was discontinued. Since then, the patient has not required any further sedatives. Earlier this morning, I took him off the nonrebreather facemask. He is on high flow oxygen at 15 L and his pulse ox is currently ranging at around 88-89%. Most recent BP is 80/53. No significant tachycardia. Cardiac rhythm is sinus. No tachypnea. No symptoms to swelling in lower extremities. 04/10/2021, the patient is much more awake and communicating and following commands and answering questions appropriately. He is not taking any sedative medications. Is gradually recovering. Mentation. He is lethargic but he is obviously awake and alert and following commands and answering questions appropriately. He is also having a bedside swallow evaluation and according to the therapist is able to swallow appropriately. Was taken off the 100% nonrebreather facemask and the patient is currently on a oxygen by nasal cannula high flow at 10 L. The patient is still IV fluids with D5 water at the rate of 75 mL an hour. Sodium level is at 144. Creatinine is at 50 with a creatinine of 1.9. Serum bicarb is a 16. White cell count and 16 with a hemoglobin of 9.4. Platelets at 197. The follow-up chest exit needs to be done today. In terms of medication, the patient is on Lovenox 40 mg subcu for DVT prophylaxis. IV Zosyn regarding aspiration pneumonia. He is also taking DuoNeb nebulized treatments around the clock. No other significant events otherwise for now. He is quite pleasant. 04/11/2021, the patient is on 8 L of oxygen by nasal cannula. Remains alert and awake. Hemodynamically stable. Afebrile. No respiratory difficulties. Tolerating his diet. His blood work shows some ongoing issues with some non- anion gap metabolic acidosis.. The serum bicarbonate remains low at 19. Meanwhile, the renal function is stable with a creatinine of 1.8. Sodium is at 140. His CBC showed white cell count 17.2 with hemoglobin of 9.4. Note that the patient is still coagulopathic related to his chronic alcoholic liver disease. INR was at 2 with a PT of 19.2 suggestive of chronic hepatic dysfunct ion. No signs of encephalopathy. No signs of any fluid overload. He is on DuoNeb nebulized treatments around the clock. He remains on Aredia prophylaxis. He is also on IV Zosyn. The chest x-ray in comparison was done yesterday and it showed some interval improvement in the bilateral pulmonary infiltrates which we assume it's related to aspiration pneumonia. There is still some left-sided pleural effusion and patchy perihilar pulmonary infiltrates in addition to bibasilar pulmonary infiltrates. 04/12/2021, the patient is seen in a FU no active issues. His been downgraded and he is awaiting a medical floor bed. He is not having any respiratory distress. His pulse ox currently is at 94% on oxygen at 8 L. His chest x-ray from today is showing diffuse bilateral pulmonary infiltrates consistent with aspiration pneumonia. There is multifocal areas of infiltration and small effusions and overall infiltrates are essentially unchanged. Clinically however the patient is improving and oxygenation is improved. He remains on IV Zosyn. Is able to swallow without any aspiration. Mental status is normalized. Creatinine is also improving and is currently down to 1.8. Correlation profile is improving INR is down to 1.5 with a PT of 15. White cell count is down to 17.2. His serum bicarb is at 19 consistent with non-anion gap metabolic acidosis. Bilirubin is at 8.8 with an alkaline phosphatase of 618 and AST of 97 with an ALT of 34. Serum albumin is at 2.1. Ultrasound of the gallbladder was done and the patient was found to have sludge in the gallbladder. Common bile duct was measuring 6 mm in size. Liver was consistent with cirrhosis and the patient had some mild ascites. The patient was seen by gastroenterology. Echo showed a preserved LV function with an ejection fraction of 50-55%. No evidence of any cardiomyopathy with valvular heart disease. Patient was reevaluated today on 04/13/2021, patient remains in the ICU, generally weak, on 7 L nasal cannula, he is awake, cooperative, remains on antibiotics for presumptive aspiration pneumonia. Chest x-ray is showing some improvement in his bilateral infiltrates. Patient is now overflow in the ICU, and I plan to transfer the patient to a regular medical floor. No labs were done today. His last WBC count 2 days ago was improving. Electrolytes are improving and he profile was noted to be improving. Reevaluated today on 04/14/2021, remains in the ICU as an overflow, presently on 6 L nasal cannula, and his O2 saturation is 95%. Patient is being treated for aspiration pneumonia, at presentation was presentation of alcohol withdrawal. Remains on diuretics in the form of Lasix 40 mg every 12 hours, patient will eventually need placement. Continues to have some edema abdominal distention and ascites. However overall the patient is improving, and feeling much better over the last few days. CBC is relatively unremarkable electrolytes are normal BUN is 41 and creatinine is down to 1.57, it was 1.87 few days ago. Chest x-ray from few days ago showed multifocal areas of infiltrates and small effusion Reevaluated today on 04/15/2021, patient remains as an overflow in the ICU, he is now on 4 L nasal cannula, O2 saturation is in the 90s, patient is eating, comfortable, in no distress, remains on diuretics, antibiotics, bronchodilators, and steroids. Renal functioning continues to improve. Chest x-ray showed significant improvement in his bilateral aspiration pneumonia. WBC count is 13.8, electrolytes are normal BUN is 46 creatinine 1.55. Reevaluated today on 04/16/2021, remains in the ICU as an overflow, patient was supposed to be discharged to a retirement/rehab facility yesterday, however waiting for authorization. [facility] patient is about the same, no major changes, he does have severe underlying COPD and history of recent aspiration pneumonia. However he is doing relatively well considering his multiple comorbidities. And I am still clearing the patient to be discharged to medical [facility] today. Reevaluated today on 04/17/2021, patient remains in the ICU as an overflow, supposed to be discharged to a retirement today. We have cleared the patient for discharge, overall the patient remains about the same, he does have history of severe underlying COPD and aspiration pneumonia. No labs were done today. Patient remains on bronchodilators, and remains on steroids Objective - Vital Signs Vital signs: Vital Signs Temp 97.6 F 04/17/21 08:00 Pulse 97 04/17/21 08:00 Resp 18 04/17/21 08:00 BP 142/91 04/17/21 08:00 Pulse Ox 87 L 04/17/21 08:00 Intake & Output 04/16/21 04/17/21 04/17/21 18:59 06:59 18:59 Intake Total 650 Output Total 675 600 Balance -25 -600 Weight 94.8 kg Intake: Oral 650 Output: Urine 675 600 Other: Voiding Method Indwelling Catheter Indwelling Catheter - Exam GENERAL EXAM: Revealed 70-year-old white male on 4 L nasal cannula, in no distress. HEAD: Normocephalic/atraumatic. EYES: Normal reaction of pupils, equal size. Conjunctiva pink, sclera white. NOSE: Clear with pink turbinates. THROAT: No erythema or exudates. NECK: No masses, no JVD, no thyroid enlargement, no adenopathy. CHEST: No chest wall deformity. Symmetrical expansion. LUNGS: Equal air entry diminished breath sounds at the bases no rhonchi no wheezes CVS: Regular rate and rhythm, normal S1 and S2, no gallops, no murmurs, no rubs ABDOMEN: Suspect ascites. Soft, nontender. No hepatosplenomegaly, normal bowel sounds, no guarding or rigidity. EXTREMITIES: No clubbing, 1+ bipedal edema, no cyanosis, 2+ pulses and upper and lower extremities. MUSCULOSKELETAL: No deformities noted limitation in range of motion SKIN: No rashes CENTRAL NERVOUS SYSTEM: Awake, oriented 3, no gross focal deficits. Remained generally weak. - Labs CBC & Chem 7: 04/14/21 03:26 04/15/21 08:34 Assessment and Plan Assessment: Impression: Acute hypoxic respiratory failure secondary to aspiration pneumonia Altered mental status secondary to acute metabolic encephalopathy, alcohol withdrawal, and aspiration pneumonia. Coagulopathy secondary to alcoholism and alcohol liver disease. Chronic alcoholic liver disease. Benign essential hypertension. Suspect ascites. Alcoholism and alcohol withdrawal on presentation. Recommendation: Continue present supportive care measures. Cleared to be discharged to retirement today. Long-term prognosis remains poor and guarded. Time with Patient: Less than 30
[2021-04-17 15:48] VITALS: BP 122/93; RESP 20; TEMP 97.8
[2021-04-17 16:34] VITALS: PULSE 80
== END 2021-04-17 21:26 | DRG 177 ==
LOC: EC 05:15 → 3SCARD 06:35 → 2SICU 18:20 → OBSVTOIN 04-02 07:29
PROVIDERS: ADMIT Family Medicine; ATTEND Family Medicine
DX: J69.0 Pneumonitis due to inhalation of food and vomit (principal); N17.0 Acute kidney failure with tubular necrosis; J96.01 Acute respiratory failure with hypoxia; G92 Toxic encephalopathy; D68.4 Acquired coagulation factor deficiency; F10.239 Alcohol dependence with withdrawal, unspecified; K76.6 Portal hypertension; E87.0 Hyperosmolality and hypernatremia; E87.2 Acidosis; J90 Pleural effusion, not elsewhere classified; J98.11 Atelectasis; J44.1 Chronic obstructive pulmonary disease with (acute) exacerbation; I95.9 Hypotension, unspecified; K70.31 Alcoholic cirrhosis of liver with ascites; R56.9 Unspecified convulsions; N18.31 Chronic kidney disease, stage 3a; Z51.5 Encounter for palliative care; Z66 Do not resuscitate; E87.8 Other disorders of electrolyte and fluid balance, not elsewhere classified; K70.11 Alcoholic hepatitis with ascites; K83.8 Other specified diseases of biliary tract; I12.9 Hypertensive chronic kidney disease with stage 1 through stage 4 chronic kidney disease, or unspecified chronic kidney disease; D53.9 Nutritional anemia, unspecified; E86.0 Dehydration; E87.70 Fluid overload, unspecified; R29.6 Repeated falls; K82.8 Other specified diseases of gallbladder; D72.829 Elevated white blood cell count, unspecified; T38.0X5A Adverse effect of glucocorticoids and synthetic analogues, initial encounter; F17.210 Nicotine dependence, cigarettes, uncomplicated; Z71.6 Tobacco abuse counseling; Y90.0 Blood alcohol level of less than 20 mg/100 ml; Z63.8 Other specified problems related to primary support group; Z91.81 History of falling; W18.30XA Fall on same level, unspecified, initial encounter
CPT/HCPCS: 36410; 36415; 36600; 70450; 71045; 72170; 73502; 74018; 76705; 76937; 80048; 80053; 80074; 80076; 80320; 81001; 82140; 82248; 82330; 82550; 82607; 82746; 82747; 82805; 83605; 83735; 83880; 84100; 84132; 84145; 84443; 84484; 85025; 85027; 85610; 85730; 87040; 93005; 93306; 94640; 94760; 95816; 99285

== ENCOUNTER 2021-04-28 11:36 | Inpatient (IN) | payer MEDICARE, OTHER ==
--- NOTE | 2021-04-28 12:20 | ED ---
General Adult HPI - General Chief complaint: Abdominal Pain Stated complaint: Abd swelling Time Seen by Provider: 04/28/21 11:57 Source: patient, EMS, RN notes reviewed, old records reviewed Mode of arrival: EMS Limitations: no limitations - History of Present Illness Initial comments: 70-year-old male presenting with abdominal pain. Patient is able to give some historical details. He states he's had some right lower quadrant abdominal pain. He is unable to say exactly how long this has been present. He has a history of dementia. He is coming from the detention today. He has an indwelling Lou catheter. There is no reported fevers. No chest pain. - Related Data Home Medications Medication Instructions Recorded Confirmed Healthshake 1 can PO TID@0700,1200,1700 04/28/21 04/28/21 Ipratropium-Albuterol Nebulize 3 ml INHALATION RT-Q4H PRN 04/28/21 04/28/21 [Duoneb 0.5 mg-3 mg/3 ml Soln] Ipratropium-Albuterol Nebulize 3 ml INHALATION RT-Q6H 04/28/21 04/28/21 [Duoneb 0.5 mg-3 mg/3 ml Soln] Omeprazole 20 mg PO DAILY 04/28/21 04/28/21 Previous Rx's Medication Instructions Recorded Acetaminophen Tab [Tylenol] 650 mg PO Q6HR PRN tab 04/15/21 Enoxaparin [Lovenox] 40 mg SQ DAILY syringe 04/15/21 Folic Acid 1 mg PO DAILY #30 tablet 04/15/21 Furosemide [Lasix] 40 mg PO DAILY #30 tablet 04/15/21 Multivitamins, Thera [Multivitamin 1 tab PO DAILY #30 tablet 04/15/21 (formulary)] Sodium Bicarbonate Tab 650 mg PO BID tab 04/15/21 Thiamine [Vitamin B-1] 100 mg PO DAILY tab 04/15/21 Allergies Allergy/AdvReac Type Severity Reaction Status Date / Time No Known Allergies Allergy Verified 04/28/21 12:57 Review of Systems ROS Statement: Those systems with pertinent positive or pertinent negative responses have been documented in the HPI. ROS Other: All systems not noted in ROS Statement are negative. Past Medical History Past Medical History: Hypertension History of Any Multi-Drug Resistant Organisms: None Reported Past Surgical History: No Surgical Hx Reported Past Psychological History: No Psychological Hx Reported Smoking Status: Current every day smoker Past Alcohol Use History: Occasional Past Drug Use History: None Reported General Exam Limitations: no limitations General appearance: alert, in no apparent distress Head exam: Present: atraumatic, normocephalic Eye exam: Present: normal appearance, PERRL ENT exam: Present: normal exam Neck exam: Present: normal inspection. Absent: tenderness, meningismus Respiratory exam: Absent: respiratory distress, wheezes, decreased breath sounds Cardiovascular Exam: Present: regular rate, normal rhythm GI/Abdominal exam: Present: soft, distended, tenderness. Absent: guarding, rebound Extremities exam: Present: normal inspection, normal capillary refill Neurological exam: Present: alert, oriented X3, CN II-XII intact. Absent: motor sensory deficit Skin exam: Present: warm, dry, intact. Absent: cyanosis, diaphoretic Course Vital Signs 04/28/21 11:42 Temperature 98.5 F Pulse Rate 98 Respiratory 20 Rate Blood Pressure 129/98 O2 Sat by Pulse 95 Oximetry EKG Findings - EKG Comments: EKG Findings:: EKG: Normal sinus rhythm, rate of 99, NM interval 134, QRS duration 74, QTC 479, no ST segment elevation. Medical Decision Making - Medical Decision Making 70-year-old male presenting with abdominal pain, patient is a poor historian. He has stable vitals. He does have some right lower abdominal tenderness although this is quite minimal on exam. Workup is initiated, patient has leukocytosis which is actually improved from prior at 13. His hemoglobin is 12.5 which is also improved. He has a mild lactic acidosis of 2.6. He does have signs of a current urinary tract infection although he has an indwelling Lou catheter. Culture will be obtained. CT performed which shows ascites, liver cirrhosis, and concern for an acute or subacute hematoma in the iliopsoas muscle. Patient did have recent falls within the past several weeks. No fall within the past 24 hours reported. Chest x-ray showing some mild fluid overload. I did discuss case with Dr. Pro who is familiar with this patient. We will admit to ensure stability of hemoglobin. Patient will be r eevaluated regarding his abdominal pain complaint. He is given a dose of antibiotics for suspected UTI and possible infiltrate on chest x-ray. - Lab Data Result diagrams: 04/28/21 12:26 04/28/21 12:26 Lab Results 04/28/21 04/28/21 04/28/21 Range/Units 12:26 12:26 12:26 WBC 13.0 H (3.8-10.6) k/uL RBC 3.72 L (4.30-5.90) m/uL Hgb 12.5 L (13.0-17.5) gm/dL Hct 39.5 (39.0-53.0) % MCV 106.3 H D (80.0-100.0) fL MCH 33.6 (25.0-35.0) pg MCHC 31.6 (31.0-37.0) g/dL RDW 15.5 (11.5-15.5) % Plt Count 357 (150-450) k/uL MPV 8.6 Neutrophils % 80 % Lymphocytes % 12 % Monocytes % 3 % Eosinophils % 2 % Basophils % 1 % Neutrophils # 10.4 H (1.3-7.7) k/uL Lymphocytes # 1.6 (1.0-4.8) k/uL Monocytes # 0.4 (0-1.0) k/uL Eosinophils # 0.3 (0-0.7) k/uL Basophils # 0.1 (0-0.2) k/uL Hypochromasia Moderate Macrocytosis Moderate PT 12.7 H (9.0-12.0) sec INR 1.2 H (<1.2) APTT 26.8 (22.0-30.0) sec Sodium (137-145) mmol/L Potassium (3.5-5.1) mmol/L Chloride (98-107) mmol/L Carbon Dioxide (22-30) mmol/L Anion Gap mmol/L BUN (9-20) mg/dL Creatinine (0.66-1.25) mg/dL Est GFR (CKD-EPI)AfAm (>60 ml/min/1.73 sqM) Est GFR (CKD-EPI)NonAf (>60 ml/min/1.73 sqM) Glucose (74-99) mg/dL Lactic Ac Sepsis Rflx Plasma Lactic Acid Delbert (0.7-2.0) mmol/L Calcium (8.4-10.2) mg/dL Total Bilirubin (0.2-1.3) mg/dL AST (17-59) U/L ALT (4-49) U/L Alkaline Phosphatase (38-126) U/L Total Protein (6.3-8.2) g/dL Albumin (3.5-5.0) g/dL Amylase (30-110) U/L Lipase (23-300) U/L Urine Color Yellow Urine Appearance Cloudy (Clear) Urine pH 5.5 (5.0-8.0) Ur Specific [place] 1.014 (1.001-1.035) Urine Protein Trace H (Negative) Urine Glucose (UA) Negative (Negative) Urine Ketones Negative (Negative) Urine Blood Moderate H (Negative) Urine Nitrite Negative (Negative) Urine Bilirubin Negative (Negative) Urine Urobilinogen 4.0 (<2.0) mg/dL Ur Leukocyte Esterase Moderate H (Negative) Urine RBC 32 H (0-5) /hpf Urine WBC 14 H (0-5) /hpf Ur Squamous Epith Cells <1 (0-4) /hpf Amorphous Sediment Rare H (None) /hpf Urine Bacteria Rare H (None) /hpf Urine Yeast (Budding) Occasional H (None) /hpf 04/28/21 04/28/21 04/28/21 Range/Units 12:26 12:26 12:56 WBC (3.8-10.6) k/uL RBC (4.30-5.90) m/uL Hgb (13.0-17.5) gm/dL Hct (39.0-53.0) % MCV (80.0-100.0) fL MCH (25.0-35.0) pg MCHC (31.0-37.0) g/dL RDW (11.5-15.5) % Plt Count (150-450) k/uL MPV Neutrophils % % Lymphocytes % % Monocytes % % Eosinophils % % Basophils % % Neutrophils # (1.3-7.7) k/uL Lymphocytes # (1.0-4.8) k/uL Monocytes # (0-1.0) k/uL Eosinophils # (0-0.7) k/uL Basophils # (0-0.2) k/uL Hypochromasia Macrocytosis PT (9.0-12.0) sec INR (<1.2) APTT (22.0-30.0) sec Sodium 133 L (137-145) mmol/L Potassium 3.3 L (3.5-5.1) mmol/L Chloride 101 (98-107) mmol/L Carbon Dioxide 25 (22-30) mmol/L Anion Gap 7 mmol/L BUN 39 H (9-20) mg/dL Creatinine 1.13 (0.66-1.25) mg/dL Est GFR (CKD-EPI)AfAm 76 (>60 ml/min/1.73 sqM) Est GFR (CKD-EPI)NonAf 66 (>60 ml/min/1.73 sqM) Glucose 93 (74-99) mg/dL Lactic Ac Sepsis Rflx Y Plasma Lactic Acid Delbert 2.6 H* (0.7-2.0) mmol/L Calcium 8.4 (8.4-10.2) mg/dL Total Bilirubin 2.8 H (0.2-1.3) mg/dL AST 48 (17-59) U/L ALT 35 (4-49) U/L Alkaline Phosphatase 634 H (38-126) U/L Total Protein 5.3 L (6.3-8.2) g/dL Albumin 2.3 L (3.5-5.0) g/dL Amylase 84 (30-110) U/L Lipase 174 (23-300) U/L Urine Color Urine Appearance (Clear) Urine pH (5.0-8.0) Ur Specific [place] (1.001-1.035) Urine Protein (Negative) Urine Glucose (UA) (Negative) Urine Ketones (Negative) Urine Blood (Negative) Urine Nitrite (Negative) Urine Bilirubin (Negative) Urine Urobilinogen (<2.0) mg/dL Ur Leukocyte Esterase (Negative) Urine RBC (0-5) /hpf Urine WBC (0-5) /hpf Ur Squamous Epith Cells (0-4) /hpf Amorphous Sediment (None) /hpf Urine Bacteria (None) /hpf Urine Yeast (Budding) (None) /hpf Disposition Clinical Impression: Ascites, Weakness, Iliopsoas muscle hematoma Disposition: TRANSFER TO PSYCH HOSP/UNIT Condition: Stable Is patient prescribed a controlled substance at d/c from ED?: No Referrals: Alejandro Graf DO [Primary Care Provider] - 1-2 days Decision to Admit Reason: Admit from EC Decision Date: 04/28/21 Decision Time: 15:30
[2021-04-28 12:41] LABS: Basophils # (A) 0.1 k/uL (0-0.2); Basophils % (A) 1 %; Eosinophils # (A) 0.3 k/uL (0-0.7); Eosinophils % (A) 2 %; HCT 39.5 % (39.0-53.0); HGB 12.5 gm/dL (13.0-17.5); Hypochromasia Moderate; Lymphocytes # (A) 1.6 k/uL (1.0-4.8); Lymphocytes % (A) 12 %; MCH 33.6 pg (25.0-35.0); MCHC 31.6 g/dL (31.0-37.0); Macrocytosis Moderate; Mean Platelet Volume 8.6; Monocytes # (A) 0.4 k/uL (0-1.0); Monocytes % (A) 3 %; Neutrophils # (A) 10.4 k/uL (1.3-7.7); Neutrophils % (A) 80 %; Platelet Count 357 k/uL (150-450); RBC 3.72 m/uL (4.30-5.90); RDW 15.5 % (11.5-15.5)
[2021-04-28 12:47] LABS: MCV 106.3 fL (80.0-100.0)
[2021-04-28 12:55] LABS: Albumin 2.3 g/dL (3.5-5.0); Calcium 8.4 mg/dL (8.4-10.2); Potassium 3.3 mmol/L (3.5-5.1); Total Bilirubin 2.8 mg/dL (0.2-1.3); Total Protein 5.3 g/dL (6.3-8.2)
[2021-04-28 13:01] LABS: INR 1.2 (<1.2); Partial Thromboplastin Time 26.8 sec (22.0-30.0); Prothrombin Time 12.7 sec (9.0-12.0)
--- NOTE | 2021-04-28 13:04 | CT ---
EXAMINATION TYPE: CT abdomen pelvis wo con DATE OF EXAM: 04/28/2021 HISTORY: Abd pain and swelling CT DLP: 1007 mGycm. Automated Exposure Control for Dose Reduction was Utilized. TECHNIQUE: CT scan of the abdomen and pelvis is performed without oral or IV contrast. COMPARISON: CT abdomen and pelvis June 19, 2017 FINDINGS: Within the limitations of a non-contrast study, the following observations are made. LUNG BASES: Small to moderate size left greater than right pleural effusions with associated compress renu atelectasis are noted on current study. Coronary artery calcification is present. Additional calc ification at level of mitral and aortic valve LIVER/GB: Liver now small in size with lobulated peripheral nodular contour consistent with underlyin g cirrhosis. Dependent density in gallbladder could reflect sludge and/or small stones PANCREAS: Mild generalized atrophy. SPLEEN: Mild splenomegaly at 13.5 cm long axis coronal image 84 is more prominent than prior . ADRENALS: No significant abnormality is seen. KIDNEYS: Bilateral renal calculi increased in size and number from prior study. Approximately 6 scatt ered bilateral renal calculi including dominant 9 mm stone lower pole level right kidney axial image 47 and dominant 10 mm calculus lower pole left kidney coronal image 78. Persistent [id number] l eft-sided anahy caliectasis without hydroureter or obstructing UPJ stone. BOWEL: Suboptimal evaluation without enteric contrast. Stomach poorly distended and are suboptimally evaluated. No suspicious small or large bowel dilatation. GENITAL ORGANS: Olu catheter passes through normal size prostate with some calcifications and adjac ent phleboliths. LYMPH NODES: No greater than 1cm abdominal or pelvic lymph nodes are appreciated. Some prominent but subcentimeter lymph nodes throughout the upper to mid abdomen particularly near quinten hepatis OSSEOUS STRUCTURES: Hcby-tn-nqvtopxr multilevel spurring in the thoracolumbar spine. Facet arthropath y in the mid to lower lumbar spine. Moderate narrowing of both hip joints with mild to moderate aceta bular spurring. OTHER: Moderate calcified plaque of the aorta extends into branch vessels. Some ectasia distal abdomi nal aorta axial image 58 noted prior to bifurcation. Moderate diffuse soft tissue anasarca or edema particularly over the pelvis. Moderate to large amount of intra-abdominal and intrapelvic ascites greatest in the left lower quadrant of the abdomen. New Heterogeneous slightly hyperdense appearance and enlargement the region of right iliopsoas muscle versus the opposite left side suggesting acute/subacute retroperitoneal hemorrhage at this level ove r roughly 11 cm length coronal image 71. Correlate clinically and with hemoglobin values. IMPRESSION: 1. New cirrhosis with evidence of underlying portal venous hypertension as there is moderate to large amount of intraperitoneal ascites and mild splenomegaly. Likely reactive small to moderate size left greater than right pleural effusions. Moderate pelvic soft tissue anasarca noted. 2. Bilateral nonobstructing renal calculi. Stable mild/moderate left-sided hydronephrosis without obs tructing stone or hydroureter, consider underlying UPJ stricture or stenosis. 3. There is moderate size right retroperitoneal acute or subacute intramuscular hematoma involving pr oximal one half of the right iliopsoas muscle. Correlate clinically and with hemoglobin values.
--- NOTE | 2021-04-28 13:11 | XR ---
EXAMINATION TYPE: XR chest 1V portable DATE OF EXAM: 04/28/2021 COMPARISON: 04/15/2021 HISTORY: Pain TECHNIQUE: Single frontal view of the chest is obtained. FINDINGS: Bilateral lower lobe infiltrate and small effusion. Chronic rib deformity and clavicular d eformities suggest remote trauma. Patchy upper lobe and midlung infiltrates are seen. No pneumothorax . Heart size stable. IMPRESSION: [place] 1. Diffuse lung disease correlate for CHF versus diffuse pneumonia. Findings stable.
[2021-04-28 13:30] LABS: Amorphous Sediment,Urine Rare /hpf; Appearance,Urine Cloudy (Clear); Bacteria,Urine Rare /hpf; Bilirubin,Urine Negative (Negative); Blood,Urine Moderate (Negative); Budding Yeast,Urine Occasional /hpf; Color,Urine Yellow; Glucose,Urine (UA) Negative (Negative); Ketones,Urine Negative (Negative); Leukocyte Esterase,Urine Moderate (Negative); Nitrite,Urine Negative (Negative); PH, Urine 5.5 (5.0-8.0); Protein,Urine Trace (Negative); RBC,Urine 32 /hpf (0-5); Specific Gravity,Urine 1.014 (1.001-1.035); Squamous Epithelial Cell,Urine <1 /hpf (0-4); WBC,Urine 14 /hpf (0-5)
[2021-04-28] MEDS ORDERED: cefTRIAXone IN SWFI 1,000 MG/10 ML SYRINGE IVP STA (15:25)
[2021-04-28] MEDS ORDERED: NALOXONE 0.4 MG/ML 1 ML VIAL IV PRN (15:26)
[2021-04-28] MEDS ORDERED: IPRATROPIUM-ALBUTEROL 3 ML NEB INHALATION PRN (22:56)
[2021-04-29 01:15] LABS: Basophils # (A) 0.1 k/uL (0-0.2); Basophils % (A) 1 %; Eosinophils # (A) 0.3 k/uL (0-0.7); Eosinophils % (A) 2 %; HCT 38.2 % (39.0-53.0); HGB 12.2 gm/dL (13.0-17.5); Hypochromasia Slight; Lymphocytes # (A) 1.6 k/uL (1.0-4.8); Lymphocytes % (A) 12 %; MCH 33.8 pg (25.0-35.0); MCHC 31.9 g/dL (31.0-37.0); MCV 105.8 fL (80.0-100.0); Macrocytosis Moderate; Mean Platelet Volume 8.5; Monocytes # (A) 0.4 k/uL (0-1.0); Monocytes % (A) 3 %; Neutrophils # (A) 10.5 k/uL (1.3-7.7); Neutrophils % (A) 80 %; Platelet Count 340 k/uL (150-450); RBC 3.61 m/uL (4.30-5.90); RDW 15.5 % (11.5-15.5); WBC 13.1 k/uL (3.8-10.6)
[2021-04-29] MEDS ORDERED: [UNRECOGNIZED DRUG - OTHER] PO SCH (07:00)
[2021-04-29] MEDS: FOLIC ACID 1 MG TAB PO SCH (08:54)
[2021-04-29] MEDS: SODIUM BICARBONATE TAB 650 MG TAB PO SCH ×2 (08:54→22:32)
[2021-04-29] MEDS: ENOXAPARIN 40 MG/0.4 ML SYRINGE SQ SCH (08:54)
[2021-04-29] MEDS: FUROSEMIDE 40 MG TAB PO SCH (08:54)
[2021-04-29] MEDS: PANTOPRAZOLE 40 MG TABLET PO SCH (08:54)
--- NOTE | 2021-04-29 13:42 | P.GSCN ---
History of Present Illness Consult date: 04/29/21 Reason for Consult: Abdominal pain History of present illness: This is a 70-year-old male who was brought to emergency complaints of abdominal pain. Patient went CAT scan shows possible right retroperitoneal psoas hematoma. He also has new onset ascites. With evidence of liver cirrhosis. Past Medical History Past Medical History: Hypertension History of Any Multi-Drug Resistant Organisms: None Reported Past Surgical History: No Surgical Hx Reported Past Psychological History: No Psychological Hx Reported Smoking Status: Current every day smoker Past Alcohol Use History: Occasional Past Drug Use History: None Reported Medications and Allergies Home Medications Medication Instructions Recorded Confirmed Type Acetaminophen Tab [Tylenol] 650 mg PO Q6HR PRN tab 04/15/21 04/28/21 Rx Enoxaparin [Lovenox] 40 mg SQ DAILY syringe 04/15/21 04/28/21 Rx Folic Acid 1 mg PO DAILY #30 tablet 04/15/21 04/28/21 Rx Furosemide [Lasix] 40 mg PO DAILY #30 tablet 04/15/21 04/28/21 Rx Multivitamins, Thera [Multivitamin 1 tab PO DAILY #30 tablet 04/15/21 04/28/21 Rx (formulary)] Sodium Bicarbonate Tab 650 mg PO BID tab 04/15/21 04/28/21 Rx Thiamine [Vitamin B-1] 100 mg PO DAILY tab 04/15/21 04/28/21 Rx Healthshake 1 can PO TID@0700,1200,1700 04/28/21 04/28/21 History Ipratropium-Albuterol Nebulize 3 ml INHALATION RT-Q4H PRN 04/28/21 04/28/21 History [Duoneb 0.5 mg-3 mg/3 ml Soln] Ipratropium-Albuterol Nebulize 3 ml INHALATION RT-Q6H 04/28/21 04/28/21 History [Duoneb 0.5 mg-3 mg/3 ml Soln] Omeprazole 20 mg PO DAILY 04/28/21 04/28/21 History Allergies Allergy/AdvReac Type Severity Reaction Status Date / Time No Known Allergies Allergy Verified 04/28/21 12:57 Surgical - Exam Vital Signs Temp Pulse Resp BP Pulse Ox 98.5 F 98 20 129/98 95 04/28/21 11:42 04/28/21 11:42 04/28/21 11:42 04/28/21 11:42 04/28/21 11:42 - General well developed, well nourished, no distress - Eyes PERRL - ENT normal pinna - Neck no masses - Respiratory normal expansion - Cardiovascular Rhythm: regular - Abdomen Mild tenderness Abdomen: soft Results - Labs 04/29/21 01:05 04/28/21 12:26 Abnormal Lab Results - Last 24 Hours (Table) 04/29/21 Range/Units 01:05 WBC 13.1 H (3.8-10.6) k/uL RBC 3.61 L (4.30-5.90) m/uL Hgb 12.2 L (13.0-17.5) gm/dL Hct 38.2 L (39.0-53.0) % MCV 105.8 H (80.0-100.0) fL Neutrophils # 10.5 H (1.3-7.7) k/uL Microbiology - Last 24 Hours (Table) 04/28/21 12:26 Urine Culture - Preliminary Urine,Voided Assessment and Plan Assessment: Right psoas hematoma. No surgical intervention is planned at this point. Patient was managed medically
--- NOTE | 2021-04-29 23:41 | P.HPIM ---
History of Present Illness H&P Date: 04/29/21 Chief Complaint: abd pain Neri Kurtz is a 70 yo M with PMH of alcoholism, recent admission 04/02-04/17 for alcohol withdrawal and community acquired pneumonia who presented to the ED from subacute rehab with generalized abdominal pain. He denies any nausea, vomiting or diarreha. States the pain has been going on at least a few days. He does have a hudson in place. He denies fever, chills, or sweats. On presentation vitals stable, afebrile SpO2 95% on 2 LPM O2, labs showing WBC 13k, lactic 2.6, urine bacteria present. CT abd/pelvis with ascites, portal hypertension and psoas hematoma. Review of Systems All systems: negative Constitutional: Reports malaise, Denies chills, Denies fever Eyes: denies blurred vision, denies pain Ears, nose, mouth and throat: Denies headache, Denies sore throat Cardiovascular: Denies chest pain, Denies shortness of breath Respiratory: Denies cough Gastrointestinal: Reports abdominal pain, Denies diarrhea, Denies nausea, Denies vomiting Musculoskeletal: Denies myalgias Integumentary: Denies pruritus, Denies rash Neurological: Denies numbness, Denies weakness Psychiatric: Denies anxiety, Denies depression Endocrine: Denies fatigue, Denies weight change Past Medical History Past Medical History: COPD, Hypertension Additional Past Medical History / Comment(s): Alcoholism-patient was drinking a fifth/gallon of alcohol daily until recent admission April 01, 2021; smoker; COPD; herniated discs, arrived at hospital with hudson catheter from [facility] History of Any Multi-Drug Resistant Organisms: None Reported Past Surgical History: No Surgical Hx Reported Past Anesthesia/Blood Transfusion Reactions: No Reported Reaction Past Psychological History: No Psychological Hx Reported Smoking Status: Former smoker Past Alcohol Use History: Abuse, Daily, Heavy Additional Past Alcohol Use History / Comment(s): Patient was drinking a fifth / gallon daily for many years prior to recent hospital admission April 01, 2021. Per daughter. Patient was sent from hospital to [facility] for rehab. Patient was living in a home with friends, the home was raided by police for cooking meth. Past Drug Use History: Marijuana Medications and Allergies Home Medications Medication Instructions Recorded Confirmed Type Acetaminophen Tab [Tylenol] 650 mg PO Q6HR PRN tab 04/15/21 04/28/21 Rx Enoxaparin [Lovenox] 40 mg SQ DAILY syringe 04/15/21 04/28/21 Rx Folic Acid 1 mg PO DAILY #30 tablet 04/15/21 04/28/21 Rx Furosemide [Lasix] 40 mg PO DAILY #30 tablet 04/15/21 04/28/21 Rx Multivitamins, Thera [Multivitamin 1 tab PO DAILY #30 tablet 04/15/21 04/28/21 Rx (formulary)] Sodium Bicarbonate Tab 650 mg PO BID tab 04/15/21 04/28/21 Rx Thiamine [Vitamin B-1] 100 mg PO DAILY tab 04/15/21 04/28/21 Rx Healthshake 1 can PO TID@0700,1200,1700 04/28/21 04/28/21 History Ipratropium-Albuterol Nebulize 3 ml INHALATION RT-Q4H PRN 04/28/21 04/28/21 History [Duoneb 0.5 mg-3 mg/3 ml Soln] Ipratropium-Albuterol Nebulize 3 ml INHALATION RT-Q6H 04/28/21 04/28/21 History [Duoneb 0.5 mg-3 mg/3 ml Soln] Omeprazole 20 mg PO DAILY 04/28/21 04/28/21 History Allergies Allergy/AdvReac Type Severity Reaction Status Date / Time No Known Allergies Allergy Verified 04/28/21 12:57 Physical Exam Vitals: Vital Signs Temp Pulse Pulse Resp BP BP Pulse Ox 04/29/21 19:07 97.4 F L 100 18 142/97 96 04/29/21 16:34 101 H 93 L 04/29/21 16:33 60 139/94 80 L 04/29/21 14:14 97.8 F 102 H 30 H 148/98 99 04/29/21 13:23 98.8 F 87 16 138/92 94 L 04/29/21 08:55 98.7 F 100 16 140/100 93 L 04/29/21 05:08 99 20 148/97 93 L 04/29/21 04:00 20 04/29/21 03:00 22 04/29/21 01:00 99 24 154/90 95 Intake and Output 04/29/21 04/29/21 04/30/21 14:59 22:59 06:59 Output Total 875 Balance -875 Output: Urine 875 Other: Voiding Method Indwelling Catheter # Bowel Movements 1 Weight 90.718 kg General: well nourished, well developed, NAD. Vitals reviewed Eyes: PERRL, EOMI, conjunctiva normal HENT: normocephalic, mucus membranes moist Neck: supple, no JVD Lungs: normal respiratory effort, no wheezes or rales CV: Regular rate and rhythm, no murmur. Peripheral pulses 2+ Abdomen: soft, nondistended, no organomegaly. Generalized tenderness to palpation Lymph: no cervical or axillary LAD Skin: warm and dry. Neuro: A&Ox3, normal mood and affect Results CBC & Chem 7: 04/29/21 01:05 04/28/21 12:26 Labs: Abnormal Lab Results - Last 24 Hours (Table) 04/29/21 Range/Units 01:05 WBC 13.1 H (3.8-10.6) k/uL RBC 3.61 L (4.30-5.90) m/uL Hgb 12.2 L (13.0-17.5) gm/dL Hct 38.2 L (39.0-53.0) % MCV 105.8 H (80.0-100.0) fL Neutrophils # 10.5 H (1.3-7.7) k/uL Microbiology - Last 24 Hours (Table) 04/28/21 12:26 Urine Culture - Preliminary Urine,Voided Thrombosis Risk Factor Assmnt - Choose All That Apply Each Factor Represents 1 point: Heart failure (<1month), Obesity (BMI >25), Swollen legs (current) Each Risk Factor Represents 2 Points: Age 61-74 years Thrombosis Risk Factor Assessment Total Risk Factor Score: 5 Thrombosis Risk Factor Assessment Level: High Risk Assessment and Plan Plan: 1. Alcoholic hepatitis with ascites. Start aldactone, continue with lasix. GI consult for further evaluation 2. Acute cystitis. IV rocephin 3. Psoas hematoma. Surgical consult for evaluation 4. chronic kidney disease. continue bicarb. Hold lasix at this time
[2021-04-30] MEDS: FUROSEMIDE 40 MG TAB PO SCH (07:52)
[2021-04-30] MEDS: SODIUM BICARBONATE TAB 650 MG TAB PO SCH ×2 (07:54→20:38)
[2021-04-30] MEDS: FOLIC ACID 1 MG TAB PO SCH (07:54)
[2021-04-30] MEDS: ENOXAPARIN 40 MG/0.4 ML SYRINGE SQ SCH (07:54)
[2021-04-30] MEDS: PANTOPRAZOLE 40 MG TABLET PO SCH (07:54)
[2021-04-30] MEDS ORDERED: SPIRONOLACTONE 25 MG TAB PO SCH (09:00)
[2021-04-30 10:52] LABS: ALT 31 U/L (4-49); AST 45 U/L (17-59); African American GFR (CKD) 69 (>60 ml/min/1.73 sqM); Albumin 2.2 g/dL (3.5-5.0); Albumin/Globulin Ratio 0.7; Alkaline Phosphatase 565 U/L (38-126); Anion Gap 7 mmol/L; Blood Urea Nitrogen 39 mg/dL (9-20); Calcium 8.2 mg/dL (8.4-10.2); Carbon Dioxide 26 mmol/L (22-30); Chloride 98 mmol/L (98-107); Glucose 100 mg/dL (74-99); Non-African American GFR(CKD) 59 (>60 ml/min/1.73 sqM); Potassium 3.4 mmol/L (3.5-5.1); Sodium 131 mmol/L (137-145); Total Bilirubin 2.2 mg/dL (0.2-1.3); Total Protein 5.2 g/dL (6.3-8.2)
[2021-04-30 16:08] LABS: Basophils # (A) 0.05 X 10*3/uL (0.00-0.10); Basophils % (A) 0.4 %; Eosinophils # (A) 0.38 X 10*3/uL (0.04-0.35); Eosinophils % (A) 2.8 %; HCT 36.8 % (39.6-50.0); HGB 11.3 g/dL (13.0-17.0); Lymphocytes # (A) 1.81 X 10*3/uL (0.90-5.00); Lymphocytes % (A) 13.1 %; MCH 31.6 pg (27.0-32.0); MCHC 30.7 g/dL (32.0-37.0); MCV 102.8 fL (80.0-97.0); Mean Platelet Volume 11.2 fL (9.5-12.2); Monocytes # (A) 0.62 X 10*3/uL (0.20-1.00); Monocytes % (A) 4.5 %; Neutrophils # (A) 10.71 X 10*3/uL (1.80-7.70); Neutrophils % (A) 77.7 %; Platelet Count 313 X 10*3/uL (140-440); RBC 3.58 X 10*6/uL (4.40-5.60); RDW 15.4 % (11.5-14.5); WBC 13.78 X 10*3/uL (4.50-10.00)
--- NOTE | 2021-04-30 16:35 | P.CONS ---
History of Present Illness - Reason for Consult Consult date: 04/30/21 ascites, abdominal pain Requesting physician: Pete Pro - Chief Complaint Abdominal pain - History of Present Illness This is a 70-year-old pleasant white male who was admitted to the hospital for complaints of abdominal pain along the right lower abdomen and flank area. Patient also noted to have a abdominal distention. He was recently hospitalized earlier this month with altered mental status and has a history of heavy alcohol abuse and recently was drinking up until his past hospitalization. During his last hospitalization he was noted to have elevated LFTs and mild amount of ascites. He has a past medical history of heavy alcohol abuse for more than 50 years duration drinking several pints of alcohol and a daily basis. Patient reports falling on his right side about 2 months ago and has significant bruising. He had a CT of the abdomen in the emergency department as part of his workup that showed new cirrhosis with evidence of underlying portal venous hypertension as there is moderate to large amount of intraparenchymal to kneel ascites and mild splenomegaly. Likely reactive small to moderate size left greater than right pleural effusions. Moderate pelvic soft tissue anasarca noted. Bilateral nonobstructing renal calculi. Stable mild/moderate left-sided hydronephrosis without obstructing stone or hydroureter, consider underlying UPJ stricture or stenosis. There is moderate sized right retroperitoneal acute or subacute intramuscular hematoma involving proximal one half of the right iliopsoas muscle. Correlate clinically and with hemoglobin values. From previous admission he was discharged home on Lasix 40 mg daily. He is noted to have abdominal distention on admission. Admitting labs show WBC 13, hemoglobin 12, hematocrit 38, platelet count 340,000, INR 1.2, total bilirubin 2.8, alkaline phosphatase 634, AST 48, ALT 35, amylase 84, lipase 174. Review of Systems REVIEW OF SYSTEMS: CARDIOPULMONARY: No chest pain or shortness of breath. Gastrointestinal: Abdominal pain, greatest in right side and flank. Abdominal distention. No nausea or vomiting. No hematemesis, coffee-ground emesis. No rectal bleeding, or melena. GENITOURINARY: No dysuria or hematuria. MUSCULOSKELETAL: Reports normal range of motion., Joint pain. SKIN: No rashes. No jaundice. ENDOCRINE: No chills, fevers. No excessive weight gain or loss. No polydipsia or polyuria. PSYCHIATRIC: Unremarkable. NEUROLOGY: No change in mental status. Denies dizziness, headache. ENT: Vision unremarkable. CONSTITUTIONAL: No recent weight loss. No fever, chills, night sweats. Past Medical History Past Medical History: COPD, Hypertension Additional Past Medical History / Comment(s): Alcoholism-patient was drinking a fifth/gallon of alcohol daily until recent admission April 01, 2021; smoker; COPD; herniated discs, arrived at hospital with hudson catheter from [facility] History of Any Multi-Drug Resistant Organisms: None Reported Past Surgical History: No Surgical Hx Reported Past Anesthesia/Blood Transfusion Reactions: No Reported Reaction Past Psychological History: No Psychological Hx Reported Smoking Status: Former smoker Past Alcohol Use History: Abuse, Daily, Heavy Additional Past Alcohol Use History / Comment(s): Patient was drinking a fifth / gallon daily for many years prior to recent hospital admission April 01, 2021. Per daughter. Patient was sent from hospital to [facility] for rehab. Patient was living in a home with friends, the home was raided by police for cooking meth. Past Drug Use History: Marijuana Medications and Allergies Home Medications Medication Instructions Recorded Confirmed Type Acetaminophen Tab [Tylenol] 650 mg PO Q6HR PRN tab 04/15/21 04/28/21 Rx Enoxaparin [Lovenox] 40 mg SQ DAILY syringe 04/15/21 04/28/21 Rx Folic Acid 1 mg PO DAILY #30 tablet 04/15/21 04/28/21 Rx Furosemide [Lasix] 40 mg PO DAILY #30 tablet 04/15/21 04/28/21 Rx Multivitamins, Thera [Multivitamin 1 tab PO DAILY #30 tablet 04/15/21 04/28/21 Rx (formulary)] Sodium Bicarbonate Tab 650 mg PO BID tab 04/15/21 04/28/21 Rx Thiamine [Vitamin B-1] 100 mg PO DAILY tab 04/15/21 04/28/21 Rx Healthshake 1 can PO TID@0700,1200,1700 04/28/21 04/28/21 History Ipratropium-Albuterol Nebulize 3 ml INHALATION RT-Q4H PRN 04/28/21 04/28/21 History [Duoneb 0.5 mg-3 mg/3 ml Soln] Ipratropium-Albuterol Nebulize 3 ml INHALATION RT-Q6H 04/28/21 04/28/21 History [Duoneb 0.5 mg-3 mg/3 ml Soln] Omeprazole 20 mg PO DAILY 04/28/21 04/28/21 History Allergies Allergy/AdvReac Type Severity Reaction Status Date / Time No Known Allergies Allergy Verified 04/28/21 12:57 Physical Exam Vitals: Vital Signs Temp Pulse Pulse Resp BP BP BP 04/30/21 07:05 97.6 F 93 22 132/88 04/30/21 02:06 97.6 F 93 19 114/56 04/29/21 19:07 97.4 F L 100 18 142/97 04/29/21 16:34 101 H 04/29/21 16:33 60 139/94 04/29/21 14:14 97.8 F 102 H 30 H 148/98 04/29/21 13:23 98.8 F 87 16 138/92 Pulse Ox 04/30/21 07:05 95 04/30/21 02:06 92 L 04/29/21 19:07 96 04/29/21 16:34 93 L 04/29/21 16:33 80 L 04/29/21 14:14 99 04/29/21 13:23 94 L Intake and Output 04/29/21 04/30/21 04/30/21 22:59 06:59 14:59 Output Total 875 Balance -875 Output: Urine 875 Other: Voiding Method Indwelling Catheter # Voids 450 # Bowel Movements 1 1 General appearance: The patient is alert, oriented, appears in no acute distress. HET: Head is normocephalic and atraumatic. Conjunctiva pink. Sclera anicteric. Neck: Supple without lymphadenopathy. Trachea midline. Heart: S1 S2. Regular rate and rhythm. Lungs: Clear to auscultation. Abdomen: Soft, diffuse tenderness, abdominal distention, large amount of ascites, positive bowel sounds.. No guarding or rigidity. Skin: No rashes. No jaundice. Bruising along the right flank and hip. Extremities: Normal skin color and turgor. No pedal edema. Neurological: No focal deficits. Alert and oriented.. Results CBC & Chem 7: 04/30/21 10:19 04/30/21 10:19 Labs: Abnormal Lab Results - Last 24 Hours (Table) 04/30/21 Range/Units 10:19 Sodium 131 L (137-145) mmol/L Potassium 3.4 L (3.5-5.1) mmol/L BUN 39 H (9-20) mg/dL Glucose 100 H (74-99) mg/dL Calcium 8.2 L (8.4-10.2) mg/dL Total Bilirubin 2.2 H (0.2-1.3) mg/dL Alkaline Phosphatase 565 H (38-126) U/L Total Protein 5.2 L (6.3-8.2) g/dL Albumin 2.2 L (3.5-5.0) g/dL Comments: CT of the abdomen in the emergency department as part of his workup that showed new cirrhosis with evidence of underlying portal venous hypertension as there is moderate to large amount of intraparenchymal to kneel ascites and mild splenomegaly. Likely reactive small to moderate size left greater than right pleural effusions. Moderate pelvic soft tissue anasarca noted. Bilateral nonobstructing renal calculi. Stable mild/moderate left-sided hydronephrosis without obstructing stone or hydroureter, consider underlying UPJ stricture or stenosis. There is moderate sized right retroperitoneal acute or subacute intramuscular hematoma involving proximal one half of the right iliopsoas muscle. Correlate clinically and with hemoglobin values. Assessment and Plan (1) Ascites Narrative/Plan: 70-year-old male with a medical history significant for alcohol abuse who presented to the emergency department with complaints of abdominal pain. Patient was recently hospitalized earlier this month with aspiration pneumonia and gastroenterology had seen patient for altered mental status and elevated LFTs. LFTs were consistent with alcoholic liver disease. During his previous hospitalization he was noted to have mild ascites, he was started on Lasix 40 mg daily. He is currently on Lasix 40 mg daily and Aldactone [address] of the abdomen showed new cirrhosis with evidence of underlying portal venous hypertension is there is moderate to large amount of intraperitoneal ascites and mild splenomegaly. Likely reactive small to moderate left greater than right pleural effusions. Mild pelvic soft tissue anasarca noted. Findings are consistent with decompensated alcoholic cirrhosis of the liver. We'll plan on paracentesis. Need to hold Lovenox. Current Visit: Yes Status: Acute Code(s): R18.8 - OTHER ASCITES SNOMED Code(s): 523735999 (2) Cirrhosis of liver Current Visit: Yes Status: Acute Code(s): K74.60 - UNSPECIFIED CIRRHOSIS OF LIVER SNOMED Code(s): 55182087 (3) Alcohol abuse Current Visit: No Status: Acute Code(s): F10.10 - ALCOHOL ABUSE, UNCOMPLICATED SNOMED Code(s): 17506011 Plan: 1. Continue symptomatic and supportive care 2. Hold Lovenox 3. Interventional radiology consult for paracentesis with fluid studies 4. Continue Lasix 40 mg daily, increase Aldactone to 100 mg daily 5. Low sodium diet 6. Alcohol abstinence Thank you for this consultation, we will continue to follow. Dr. Pascual Roldan I agree with the dictator's note, documented as a scribe by Ronit Swan.
[2021-04-30 21:46] LABS: Hepatitis A Antibody IgM Non-Reactive (Non-Reactive); Hepatitis B Core IgM Non-Reactive (Non-Reactive); Hepatitis B Surface Antigen Non-Reactive (Non-Reactive); Hepatitis C IgG Antibody Non-Reactive (Non-Reactive)
--- NOTE | 2021-04-30 21:53 | P.PN ---
Subjective Progress Note Date: 04/30/21 Principal diagnosis: alcoholic cirrhosis His abdominal pain is improved today, no longer nauseated. No surgical intervention indicated. GI evaluated pt and recommending paracentesis Objective - Vital Signs Vital signs: Vital Signs Temp 97.8 F 04/30/21 19:39 Pulse 99 04/30/21 19:39 Resp 18 04/30/21 19:39 BP 134/97 04/30/21 19:39 Pulse Ox 98 04/30/21 19:39 Intake & Output 04/30/21 04/30/21 05/01/21 06:59 18:59 06:59 Weight 90.718 kg Other: Voiding Method Indwelling Catheter Indwelling Catheter # Voids 450 # Bowel Movements 1 - Exam General: well nourished, well developed, NAD. Vitals reviewed Lungs: normal respiratory effort, no wheezes or rales CV: Regular rate and rhythm, no murmur. Peripheral pulses 2+ Abdomen: soft, distended, no organomegaly. Generalized tenderness, improved Skin: warm and dry. - Labs CBC & Chem 7: 04/30/21 10:19 04/30/21 10:19 Labs: Abnormal Lab Results - Last 24 Hours (Table) 04/30/21 04/30/21 Range/Units 10:19 10:19 WBC 13.78 H (4.50-10.00) X 10*3/uL RBC 3.58 L (4.40-5.60) X 10*6/uL Hgb 11.3 L (13.0-17.0) g/dL Hct 36.8 L (39.6-50.0) % MCV 102.8 H (80.0-97.0) fL MCHC 30.7 L (32.0-37.0) g/dL RDW 15.4 H (11.5-14.5) % Immature Gran # 0.21 H (0.00-0.04) X 10*3/uL Neutrophils # 10.71 H (1.80-7.70) X 10*3/uL Eosinophils # 0.38 H (0.04-0.35) X 10*3/uL Sodium 131 L (137-145) mmol/L Potassium 3.4 L (3.5-5.1) mmol/L BUN 39 H (9-20) mg/dL Glucose 100 H (74-99) mg/dL Calcium 8.2 L (8.4-10.2) mg/dL Total Bilirubin 2.2 H (0.2-1.3) mg/dL Alkaline Phosphatase 565 H (38-126) U/L Total Protein 5.2 L (6.3-8.2) g/dL Albumin 2.2 L (3.5-5.0) g/dL Assessment and Plan Plan: Continue with lasix and increase aldactone. Hold lovenox per GI for paracentesis. Continue to monitor closely
[2021-05-01] MEDS: PANTOPRAZOLE 40 MG TABLET PO SCH (08:06)
[2021-05-01 11:06] LABS: African American GFR (CKD) 58.6 (60.0-200.0); Albumin 2.3 g/dL (3.80-4.90); Albumin/Globulin Ratio 0.85 (1.60-3.17); BUN/Creat Ratio 26.43 Ratio (12.00-20.00); Calcium 7.5 mg/dL (8.7-10.3); Globulin 2.7 g/dL (1.6-3.3); Non-African American GFR(CKD) 50.5 (60.0-200.0); Total Bilirubin 2.1 mg/dL (0.3-1.2)
--- NOTE | 2021-05-01 11:31 | P.PN ---
Progress Note - Text Progress Note Date: 04/30/21 Patient remains clearly unchanged. On exam vital signs are stable. Abdomen soft. Right retroperitoneal/psoas hematoma. Patient will continue to receive supportive care.
--- NOTE | 2021-05-01 11:31 | P.PN ---
Progress Note - Text Progress Note Date: 05/01/21 Patient remained stable. On exam vital signs are stable. Abdomen soft. Mild right upper quadrant tenderness. Status post right psoas hematoma. Patient will be most likely discharged home today
--- NOTE | 2021-05-01 12:03 | P.PN ---
Subjective Progress Note Date: 05/01/21 Principal diagnosis: Ascites and cirrhosis of the liver This is a 70-year-old pleasant white male who was admitted to the hospital for complaints of abdominal pain along the right lower abdomen and flank area. Patient also noted to have a abdominal distention. He was recently hospitalized earlier this month with altered mental status and has a history of heavy alcohol abuse and recently was drinking up until his past hospitalization. During his last hospitalization he was noted to have elevated LFTs and mild amount of ascites. He has a past medical history of heavy alcohol abuse for more than 50 years duration drinking several pints of alcohol and a daily basis. Patient reports falling on his right side about 2 months ago and has significant bruising. He had a CT of the abdomen in the emergency department as part of his workup that showed new cirrhosis with evidence of underlying portal venous hypertension as there is moderate to large amount of intraparenchymal to kneel ascites and mild splenomegaly. Likely reactive small to moderate size left greater than right pleural effusions. Moderate pelvic soft tissue anasarca noted. Bilateral nonobstructing renal calculi. Stable mild/moderate left-sided hydronephrosis without obstructing stone or hydroureter, consider underlying UPJ stricture or stenosis. There is moderate sized right retroperitoneal acute or subacute intramuscular hematoma involving proximal one half of the right iliopsoas muscle. Correlate clinically and with hemoglobin values. From previous admission he was discharged home on Lasix 40 mg daily. He is noted to have abdominal distention on admission. The patient is scheduled for paracentesis with fluid studies today. He states overall he is doing well. He is still complaining of abdominal discomfort due to distention. Denies any nausea or vomiting. Objective - Vital Signs Vital signs: Vital Signs Temp 97.5 F L 05/01/21 06:35 Pulse 74 05/01/21 06:35 Resp 20 05/01/21 06:35 BP 137/96 05/01/21 06:35 Pulse Ox 92 L 05/01/21 06:35 Intake & Output 04/30/21 05/01/21 05/01/21 18:59 06:59 18:59 Output Total 400 Balance -400 Weight 90.718 kg 93 kg Output: Urine 400 Other: Voiding Method Indwelling Catheter Indwelling Catheter # Bowel Movements 1 1 - Exam General appearance: The patient is alert, oriented, appears in no acute distress. HET: Head is normocephalic and atraumatic. Conjunctiva pink. Sclera anicteric. Neck: Supple without lymphadenopathy. Abdomen: Soft, ascites, distended with bowel sounds. No guarding or rigidity. Extremities: Normal skin color and turgor. No pedal edema Skin: No rashes, no jaundice Neurological: No focal deficits. Alert and oriented 3. - Labs CBC & Chem 7: 04/30/21 10:19 05/01/21 06:00 Labs: Abnormal Lab Results - Last 24 Hours (Table) 04/30/21 04/30/21 Range/Units 10:19 10:19 WBC 13.78 H (4.50-10.00) X 10*3/uL RBC 3.58 L (4.40-5.60) X 10*6/uL Hgb 11.3 L (13.0-17.0) g/dL Hct 36.8 L (39.6-50.0) % MCV 102.8 H (80.0-97.0) fL MCHC 30.7 L (32.0-37.0) g/dL RDW 15.4 H (11.5-14.5) % Immature Gran # 0.21 H (0.00-0.04) X 10*3/uL Neutrophils # 10.71 H (1.80-7.70) X 10*3/uL Eosinophils # 0.38 H (0.04-0.35) X 10*3/uL Sodium 131 L (137-145) mmol/L Potassium 3.4 L (3.5-5.1) mmol/L BUN 39 H (9-20) mg/dL Glucose 100 H (74-99) mg/dL Calcium 8.2 L (8.4-10.2) mg/dL Total Bilirubin 2.2 H (0.2-1.3) mg/dL Alkaline Phosphatase 565 H (38-126) U/L Total Protein 5.2 L (6.3-8.2) g/dL Albumin 2.2 L (3.5-5.0) g/dL Assessment and Plan (1) Ascites Narrative/Plan: 70-year-old male with a medical history significant for alcohol abuse who presented to the emergency department with complaints of abdominal pain. Patient was recently hospitalized earlier this month with aspiration pneumonia a nd gastroenterology had seen patient for altered mental status and elevated LFTs. LFTs were consistent with alcoholic liver disease. During his previous hospitalization he was noted to have mild ascites, he was started on Lasix 40 mg daily. He is currently on Lasix 40 mg daily and Aldactone [address] of the abdomen showed new cirrhosis with evidence of underlying portal venous hypertension is there is moderate to large amount of intraperitoneal ascites and mild splenomegaly. Likely reactive small to moderate left greater than right pleural effusions. Mild pelvic soft tissue anasarca noted. Findings are consistent with decompensated alcoholic cirrhosis of the liver. We'll plan on paracentesis. Need to hold Lovenox. Current Visit: Yes Status: Acute Code(s): R18.8 - OTHER ASCITES SNOMED Code(s): 587378379 (2) Cirrhosis of liver Current Visit: Yes Status: Acute Code(s): K74.60 - UNSPECIFIED CIRRHOSIS OF LIVER SNOMED Code(s): 83186086 (3) Alcohol abuse Current Visit: No Status: Acute Code(s): F10.10 - ALCOHOL ABUSE, UNCOMPLICATED SNOMED Code(s): 32657799 Plan: 1. Continue symptomatic and supportive care 2. May resume Lovenox after paracentesis 3. Interventional radiology consulted for paracentesis with fluid studies 4. Continue Lasix 40 mg daily, increase Aldactone to 100 mg daily 5. Low sodium diet 6. Alcohol abstinence 7. Patient to follow-up with gastroenterology in 1-2 weeks Thank you for allowing us to participate in the care of the patient, the GI s ervice will sign off, gastroenterology will not be available at the hospital this weekend and if further evaluation by gastroenterology is required the patient will need transfer as per the primary team's discretion. Dr. Pascual Roldan I agree with the dictator's note, documented as a scribe by Ronit Swan.
[2021-05-01] MEDS: FOLIC ACID 1 MG TAB PO SCH (12:05)
[2021-05-01] MEDS: SPIRONOLACTONE 25 MG TAB PO SCH (12:05)
[2021-05-01] MEDS: SODIUM BICARBONATE TAB 650 MG TAB PO SCH ×2 (12:05→21:20)
[2021-05-01] MEDS: FUROSEMIDE 40 MG TAB PO SCH (12:05)
[2021-05-01] MEDS: ALBUMIN HUMAN 25% 50 ML in EMPTY BAG 1 BAG IVPB SCH ×4 (13:20→17:00)
--- NOTE | 2021-05-01 13:21 | US ---
Ultrasound-guided paracentesis. DATE OF EXAM: 05/01/2021 CLINICAL HISTORY: Ascites The procedure was discussed with the patient. The risks, complications, benefits, and alternatives we re discussed and any questions were answered. Informed consent was obtained. The patient was placed s upine on the ultrasound table and prepped and draped in the usual sterile fashion. All elements of maximal barrier technique were utilized. Under ultrasound guidance, access into the right lower quadrant was obtained, via the paracentesis catheter system and direct ultrasound guidanc e. Approximately 9.4 liters of straw-colored fluid was removed. The patient was stable throughout the pr ocedure and remained stable upon discharge from Department of Radiology. IMPRESSION: Successful paracentesis under ultrasound guidance.
--- NOTE | 2021-05-01 22:05 | P.PN ---
Subjective Progress Note Date: 05/01/21 Pt underwent paracentesis today with removal of 9.4 L fluid. His abdominal pain is significantly improved. He is tolerating the lasix and aldactone without side effects. Denies nausea. Objective - Vital Signs Vital signs: Vital Signs Temp 97.9 F 05/01/21 12:08 Pulse 90 05/01/21 19:28 Resp 18 05/01/21 19:28 BP 118/80 05/01/21 12:28 Pulse Ox 100 05/01/21 12:28 Intake & Output 05/01/21 05/01/21 05/02/21 06:59 18:59 06:59 Output Total 400 Balance -400 Weight 93 kg Output: Urine 400 Other: Voiding Method Indwelling Catheter Indwelling Catheter Indwelling Catheter # Bowel Movements 1 - Exam General: well nourished, well developed, NAD. Vitals reviewed Lungs: normal respiratory effort, no wheezes or rales CV: Regular rate and rhythm, no murmur. Peripheral pulses 2+ Abdomen: soft, distended, no organomegaly. Nontender Skin: warm and dry. - Labs CBC & Chem 7: 04/30/21 10:19 05/01/21 06:00 Labs: Abnormal Lab Results - Last 24 Hours (Table) 05/01/21 Range/Units 06:00 Potassium 3.0 L (3.5-5.5) mmol/L BUN 37.0 H (9.0-27.0) mg/dL Est GFR (CKD-EPI)AfAm 58.6 L (60.0-200.0) Est GFR (CKD-EPI)NonAf 50.5 L (60.0-200.0) BUN/Creatinine Ratio 26.43 H (12.00-20.00) Ratio Calcium 7.5 L (8.7-10.3) mg/dL Total Bilirubin 2.1 H (0.3-1.2) mg/dL Alkaline Phosphatase 604 H (41-126) U/L Total Protein 5.0 L (6.2-8.2) g/dL Albumin 2.30 L (3.80-4.90) g/dL Albumin/Globulin Ratio 0.85 L (1.60-3.17) g/dL Assessment and Plan Plan: Pt s/p paracentesis, fluid analysis in process. Continue with lasix and aldactone. Discharge planning in progress
[2021-05-02] MEDS: FUROSEMIDE 40 MG TAB PO SCH (07:49)
[2021-05-02] MEDS: SPIRONOLACTONE 25 MG TAB PO SCH (07:49)
[2021-05-02] MEDS: PANTOPRAZOLE 40 MG TABLET PO SCH (07:49)
[2021-05-02] MEDS: FOLIC ACID 1 MG TAB PO SCH (07:50)
[2021-05-02] MEDS: SODIUM BICARBONATE TAB 650 MG TAB PO SCH ×2 (07:50→20:17)
[2021-05-02] MEDS: FLUCONAZOLE 150 MG TAB PO SCH (08:55)
--- NOTE | 2021-05-02 09:39 | P.PN ---
Subjective Progress Note Date: 05/02/21 Principal diagnosis: Retroperitoneal hematoma Patient doing well today. No discomfort. Had paracentesis performed yesterday with over 9 L of serous fluid evacuated. Objective - Vital Signs Vital signs: Vital Signs Temp 97.6 F 05/02/21 07:41 Pulse 95 05/02/21 09:11 Resp 16 05/02/21 07:41 BP 116/79 05/02/21 07:41 Pulse Ox 100 05/02/21 08:59 Intake & Output 05/01/21 05/02/21 05/02/21 18:59 06:59 18:59 Output Total 800 Balance -800 Weight 88 kg Output: Urine 800 Other: Voiding Method Indwelling Catheter Indwelling Catheter - Exam Abdomen: Soft, nontender, nondistended - Labs CBC & Chem 7: 04/30/21 10:19 05/01/21 06:00 Labs: Abnormal Lab Results - Last 24 Hours (Table) 05/01/21 Range/Units 06:00 Potassium 3.0 L (3.5-5.5) mmol/L BUN 37.0 H (9.0-27.0) mg/dL Est GFR (CKD-EPI)AfAm 58.6 L (60.0-200.0) Est GFR (CKD-EPI)NonAf 50.5 L (60.0-200.0) BUN/Creatinine Ratio 26.43 H (12.00-20.00) Ratio Calcium 7.5 L (8.7-10.3) mg/dL Total Bilirubin 2.1 H (0.3-1.2) mg/dL Alkaline Phosphatase 604 H (41-126) U/L Total Protein 5.0 L (6.2-8.2) g/dL Albumin 2.30 L (3.80-4.90) g/dL Albumin/Globulin Ratio 0.85 L (1.60-3.17) g/dL Microbiology - Last 24 Hours (Table) 04/28/21 12:26 Urine Culture - Final Urine,Voided Oedtte glabrata Assessment and Plan (1) Iliopsoas muscle hematoma Narrative/Plan: Patient doing well today. Tolerating diet. No pain. Hematoma on CAT scan fairly small. We'll sign off. Please call if needed. Current Visit: Yes Status: Acute Code(s): S70.10XA - CONTUSION OF UNSPECIFIED THIGH, INITIAL ENCOUNTER SNOMED Code(s): 295833136
[2021-05-02 14:37] LABS: Appearance,BF Clear; Color,BF Yellow
[2021-05-02 14:47] LABS: Nucleated Cells, Body Fluid 38 /uL; RBC, Body Fluid 29 /uL
[2021-05-02 15:01] LABS: Mononuclear WBC,Body Fluid 94 %; Polynuclear WBC,Body Fluid 6 %; Total Cells Counted,Body Fluid 100
[2021-05-02] MEDS: ACETAMINOPHEN TAB 325 MG TAB PO PRN (20:17)
[2021-05-02 20:34] LABS: Total Protein, Body Fluid 645 mg/dL
--- NOTE | 2021-05-03 02:06 | P.PN ---
Subjective Progress Note Date: 05/02/21 Principal diagnosis: Massive Ascites Mr. Kurtz is a 70-year-old male with a past medical history of COPD, hypertension, alcohol abuse admitted to the hospital for generalized abdominal pain. Patient had a CAT scan of the abdomen and pelvis showing massive ascites portal hypertension psoas hematoma. On 05/02/2021 -patient is seen and examined at the bedside. He states that he feels much better in terms of his abdominal pain and distention after removal of the acetic fluid. As per discussion with nursing staff patient had 9 L of fluid drained. Patient denies having any fevers chills or rigors. No chest pain or difficulty in breathing. No dysuria or hematuria. On reviewing the patient's vitals temperature of 98.2, heart rate 55, respiratory 18, blood pressure 104/76 saturating at 99% on 3 L of oxygen. No new labs from this morning. Objective - Vital Signs Vital signs: Vital Signs Temp 97.6 F 05/02/21 07:41 Pulse 95 05/02/21 09:11 Resp 16 05/02/21 07:41 BP 116/79 05/02/21 07:41 Pulse Ox 100 05/02/21 08:59 Intake & Output 05/01/21 05/02/21 05/02/21 18:59 06:59 18:59 Output Total 800 Balance -800 Weight 88 kg Output: Urine 800 Other: Voiding Method Indwelling Catheter Indwelling Catheter - Exam GEN. APPEARANCE: alert, in no apparent distress HE ENT: No pallor. No icterus. RESPIRATORY EXAM: Bilateral BS ,slightest diminished at the bases, No wheezes or crackles. CARDIOVASCULAR EXAM: S1-S2 heard. No additional sounds. GI/ABDOMINAL EXAM: soft, normal bowel sounds. EXTREMITIES EXAM: Mild pedal edema. NEUROLOGICAL EXAM: alert, oriented X 2- 3, no focal deficits. PSYCHIATRIC EXAM: normal affect, normal mood SKIN EXAM: No rash. - Labs CBC & Chem 7: 04/30/21 10:19 05/01/21 06:00 Labs: Microbiology - Last 24 Hours (Table) 04/28/21 12:26 Urine Culture - Final Urine,Voided Odette glabrata Assessment and Plan Assessment: ASSESSMENT Massive ascites status post paracentesis removal of 9 L of ascitic fluid Alcoholic liver disease Portal venous hypertension Mild splenomegaly Mild leukocytosis Hypokalemia Hyperbilirubinemia Severe protein calorie malnutrition Hypocalcemia Elevated alkaline phosphatase PLAN: Patient to be continued on Lasix and Aldactone. Surgical services on board for psoas hematoma, no surgical intervention recommended. Patient's hemoglobin has been stable with no significant drop. Will replace electrolytes. Overall prognosis is guarded. Recommendations depending on the progress with patient.
[2021-05-03] MEDS: FUROSEMIDE 40 MG TAB PO SCH (07:32)
[2021-05-03] MEDS: SPIRONOLACTONE 25 MG TAB PO SCH (07:32)
[2021-05-03] MEDS: PANTOPRAZOLE 40 MG TABLET PO SCH (07:32)
[2021-05-03] MEDS: FOLIC ACID 1 MG TAB PO SCH (07:32)
[2021-05-03] MEDS: FLUCONAZOLE 150 MG TAB PO SCH (07:32)
[2021-05-03] MEDS: SODIUM BICARBONATE TAB 650 MG TAB PO SCH ×2 (07:32→20:36)
--- NOTE | 2021-05-04 01:24 | P.PN ---
Subjective Progress Note Date: 05/03/21 Principal diagnosis: Massive Ascites Mr. Kurtz is a 70-year-old male with a past medical history of COPD, hypertension, alcohol abuse admitted to the hospital for generalized abdominal pain. Patient had a CAT scan of the abdomen and pelvis showing massive ascites portal hypertension psoas hematoma. On 05/02/2021 -patient is seen and examined at the bedside. He states that he feels much better in terms of his abdominal pain and distention after removal of the acetic fluid. As per discussion with nursing staff patient had 9 L of fluid drained. Patient denies having any fevers chills or rigors. No chest pain or difficulty in breathing. No dysuria or hematuria. On reviewing the patient's vitals temperature of 98.2, heart rate 55, respiratory 18, blood pressure 104/76 saturating at 99% on 3 L of oxygen. No new labs from this morning. On 05/03/2021 -no acute events reported by nursing staff overnight. Patient is comfortably lying in bed appears to have mild abdominal discomfort. Patient denied having any chest pain or difficulty breathing. He states that his appetite is poor, did not eat any of his lunch this afternoon. On reviewing the vitals temperature 97.4, heart rate 95, respiratory rate 17, blood pressure 101/69, saturating 100% on 3 L of oxygen. No new labs from this morning. Patient medications have been reviewed Objective - Vital Signs Vital signs: Vital Signs Temp 97.4 F L 05/03/21 13:23 Pulse 95 05/03/21 13:23 Resp 17 05/03/21 13:23 BP 101/69 05/03/21 13:23 Pulse Ox 100 05/03/21 13:23 Intake & Output 05/02/21 05/03/21 05/03/21 18:59 06:59 18:59 Intake Total 480 200 Output Total 300 Balance 180 200 Weight 82.5 kg Intake: Oral 480 200 Output: Urine 300 Other: Voiding Method Indwelling Catheter # Voids 175 - Exam PHYSICAL EXAM GEN. APPEARANCE: alert, in no apparent distress HE ENT: No pallor. No icterus. RESPIRATORY EXAM: Bilateral BS ,slightest diminished at the bases, No wheezes or crackles. CARDIOVASCULAR EXAM: S1-S2 heard. No additional sounds. GI/ABDOMINAL EXAM: soft, normal bowel sounds.Distended slightly, mild tenderness in all quadrants. EXTREMITIES EXAM: Mild pedal edema. NEUROLOGICAL EXAM: alert, oriented X 2- 3, no focal deficits. PSYCHIATRIC EXAM: normal affect, normal mood SKIN EXAM: No rash. - Labs CBC & Chem 7: 04/30/21 10:19 05/01/21 06:00 Labs: Microbiology - Last 24 Hours (Table) 05/01/21 10:30 Gram Stain - Preliminary Paracentesis Fluid Body Fluid Culture - Preliminary 05/01/21 10:30 Anaerobic Culture - Preliminary Paracentesis Fluid Assessment and Plan Assessment: ASSESSMENT Massive ascites status post paracentesis removal of 9 L of ascitic fluid Alcoholic liver disease Portal venous hypertension Mild splenomegaly Hypokalemia Hyperbilirubinemia Severe protein calorie malnutrition Hypocalcemia Elevated alkaline phosphatase PLAN: Patient to be continued on Lasix and Aldactone. Surgical services on board for psoas hematoma, no surgical intervention recommended. Patient's hemoglobin has been stable with no significant drop. Will replace electrolytes. Overall prognosis is guarded. Recommendations depending on the progress with patient.
[2021-05-04 06:20] LABS: Basophils # (A) 0.1 k/uL (0-0.2); Basophils % (A) 0 %; Eosinophils # (A) 0.2 k/uL (0-0.7); Eosinophils % (A) 1 %; HCT 38.4 % (39.0-53.0); HGB 12.5 gm/dL (13.0-17.5); Lymphocytes # (A) 2.8 k/uL (1.0-4.8); Lymphocytes % (A) 16 %; MCH 33.4 pg (25.0-35.0); MCHC 32.6 g/dL (31.0-37.0); MCV 102.5 fL (80.0-100.0); Macrocytosis Slight; Mean Platelet Volume 8.5; Monocytes # (A) 0.7 k/uL (0-1.0); Monocytes % (A) 4 %; Neutrophils # (A) 13.3 k/uL (1.3-7.7); Neutrophils % (A) 77 %; Platelet Count 310 k/uL (150-450); RBC 3.75 m/uL (4.30-5.90); RDW 15.5 % (11.5-15.5); WBC 17.3 k/uL (3.8-10.6)
[2021-05-04 06:34] LABS: African American GFR (CKD) 61 (>60 ml/min/1.73 sqM); Anion Gap 10 mmol/L; Blood Urea Nitrogen 41 mg/dL (9-20); Calcium 8.2 mg/dL (8.4-10.2); Carbon Dioxide 22 mmol/L (22-30); Chloride 99 mmol/L (98-107); Glucose 96 mg/dL (74-99); Non-African American GFR(CKD) 52 (>60 ml/min/1.73 sqM); Potassium 3.5 mmol/L (3.5-5.1); Sodium 131 mmol/L (137-145)
[2021-05-04] MEDS: SODIUM BICARBONATE TAB 650 MG TAB PO SCH ×2 (07:58→22:11)
[2021-05-04] MEDS: FUROSEMIDE 40 MG TAB PO SCH (07:58)
[2021-05-04] MEDS: FLUCONAZOLE 150 MG TAB PO SCH (07:58)
[2021-05-04] MEDS: SPIRONOLACTONE 25 MG TAB PO SCH (07:58)
[2021-05-04] MEDS: PANTOPRAZOLE 40 MG TABLET PO SCH (07:58)
[2021-05-04] MEDS: FOLIC ACID 1 MG TAB PO SCH (07:58)
--- NOTE | 2021-05-04 12:55 | P.PN ---
Subjective Progress Note Date: 05/04/21 Principal diagnosis: Ascites and cirrhosis of the liver This is a 70-year-old pleasant white male who was admitted to the hospital for complaints of abdominal pain along the right lower abdomen and flank area. Patient also noted to have a abdominal distention. He was recently hospitalized earlier this month with altered mental status and has a history of heavy alcohol abuse and recently was drinking up until his past hospitalization. During his last hospitalization he was noted to have elevated LFTs and mild amount of ascites. He has a past medical history of heavy alcohol abuse for more than 50 years duration drinking several pints of alcohol and a daily basis. Patient reports falling on his right side about 2 months ago and has significant bruising. He had a CT of the abdomen in the emergency department as part of his workup that showed new cirrhosis with evidence of underlying portal venous hypertension as there is moderate to large amount of intraparenchymal to kneel ascites and mild splenomegaly. Likely reactive small to moderate size left greater than right pleural effusions. Moderate pelvic soft tissue anasarca noted. Bilateral nonobstructing renal calculi. Stable mild/moderate left-sided hydronephrosis without obstructing stone or hydroureter, consider underlying UPJ stricture or stenosis. There is moderate sized right retroperitoneal acute or subacute intramuscular hematoma involving proximal one half of the right iliopsoas muscle. Correlate clinically and with hemoglobin values. From previous admission he was discharged home on Lasix 40 mg daily. He is noted to have abdominal distention on admission. Patient underwent a paracentesis on Tuesday with removal of 9.4 L of fluid. He states he is still having some mild abdominal discomfort. He denies any nausea or vomiting. Objective - Vital Signs Vital signs: Vital Signs Temp 97.3 F L 05/04/21 07:39 Pulse 100 05/04/21 07:39 Resp 20 05/04/21 07:39 BP 120/83 05/04/21 07:39 Pulse Ox 98 05/04/21 09:03 Intake & Output 05/03/21 05/04/21 05/04/21 18:59 06:59 18:59 Intake Total 100 400 240 Output Total 400 Balance 100 0 240 Weight 86 kg Intake: Oral 100 400 240 Output: Urine 400 Other: Voiding Method Indwelling Catheter Indwelling Catheter - Exam General appearance: The patient is alert, oriented, appears in no acute distress. HET: Head is normocephalic and atraumatic. Conjunctiva pink. Sclera anicteric. Neck: Supple without lymphadenopathy. Abdomen: Soft, diffuse tenderness, mild distention with bowel sounds. No guarding or rigidity. Extremities: Normal skin color and turgor. No pedal edema Skin: No rashes, no jaundice Neurological: No focal deficits. Alert and oriented 3. - Labs CBC & Chem 7: 05/04/21 05:24 05/04/21 05:24 Labs: Abnormal Lab Results - Last 24 Hours (Table) 05/04/21 05/04/21 Range/Units 05:24 05:24 WBC 17.3 H (3.8-10.6) k/uL RBC 3.75 L (4.30-5.90) m/uL Hgb 12.5 L (13.0-17.5) gm/dL Hct 38.4 L (39.0-53.0) % MCV 102.5 H (80.0-100.0) fL Neutrophils # 13.3 H (1.3-7.7) k/uL Sodium 131 L (137-145) mmol/L BUN 41 H (9-20) mg/dL Creatinine 1.36 H (0.66-1.25) mg/dL Calcium 8.2 L (8.4-10.2) mg/dL Microbiology - Last 24 Hours (Table) 05/01/21 10:30 Gram Stain - Preliminary Paracentesis Fluid Body Fluid Culture - Preliminary Assessment and Plan (1) Ascites Narrative/Plan: 70-year-old male with a medical history significant for alcohol abuse who presented to the emergency department with complaints of abdominal pain. Patient was recently hospitalized earlier this month with aspiration pneumonia and gastroenterology had seen patient for altered mental status and elevated LFTs. LFTs were consistent with alcoholic liver disease. During his previous hospitalization he was noted to have mild ascites, he was started on Lasix 40 mg daily. He is currently on Lasix 40 mg daily and Aldactone [address] of the abdomen showed new cirrhosis with evidence of underlying portal venous hypertension is there is moderate to large amount of intraperitoneal ascites and mild splenomegaly. Likely reactive small to moderate left greater than right pleural effusions. Mild pelvic soft tissue anasarca noted. Findings are consistent with decompensated alcoholic cirrhosis of the liver. We'll plan on paracentesis. Patient is status post paracentesis with 9.4 L of fluid removed, status post albumin. Current Visit: Yes Status: Acute Code(s): R18.8 - OTHER ASCITES SNOMED Code(s): 895476046 (2) Cirrhosis of liver Current Visit: Yes Status: Acute Code(s): K74.60 - UNSPECIFIED CIRRHOSIS OF LIVER SNOMED Code(s): 55306501 (3) Alcohol abuse Current Visit: No Status: Acute Code(s): F10.10 - ALCOHOL ABUSE, UNCOMPLICATED SNOMED Code(s): 71765834 Plan: 1. Continue symptomatic and supportive care 2. Patient is status post paracentesis with 9.4 L removed 3. Continue Lasix 40 mg daily, increase Aldactone to 100 mg daily 4. Low sodium diet 5. Alcohol abstinence 6. We'll continue to follow, patient may need repeat paracentesis prior to discharge. Patient is declining at this time. 7. Patient to follow-up with gastroenterology in 1-[address] Pascual Roldan I agree with the dictator's note, documented as a scribe by Ronit Swan.
--- NOTE | 2021-05-04 17:40 | P.PN ---
Subjective Progress Note Date: 05/04/21 Neri Kurtz is a 70 yo M with PMH of alcoholism, recent admission 04/02-04/17 for alcohol withdrawal and community acquired pneumonia who presented to the ED from subacute rehab with generalized abdominal pain. He denies any nausea, vomiting or diarreha. States the pain has been going on at least a few days. He does have a hudson in place. He denies fever, chills, or sweats. On presentation vitals stable, afebrile SpO2 95% on 2 LPM O2, labs showing WBC 13k, lactic 2.6, urine bacteria present. CT abd/pelvis with ascites, portal hypertension and psoas hematoma. 05/04/2021 status post large volume paracentesis of 9.4 L drained on Tuesday. Cytology pending. Aldactone had been increased at that time. Continues on low sodium diet. Abdomen soft minimal discomfort but appears to be reaccumulating. Denies chest pain, palpitations or shortness of breath. Afebrile, labs pending. Objective - Vital Signs Vital signs: Vital Signs Temp 97.5 F L 05/04/21 14:00 Pulse 102 H 05/04/21 14:00 Resp 20 05/04/21 14:00 BP 119/83 05/04/21 14:00 Pulse Ox 98 05/04/21 14:00 Intake & Output 05/03/21 05/04/21 05/04/21 18:59 06:59 18:59 Intake Total 100 400 240 Output Total 400 Balance 100 0 240 Weight 86 kg 86 kg Intake: Oral 100 400 240 Output: Urine 400 Other: Voiding Method Indwelling Catheter Indwelling Catheter # Bowel Movements 1 - Exam General: Sitting up in bed, NAD. Vitals reviewed Eyes: PERRL, EOMI, conjunctiva normal HENT: normocephalic, mucus membranes moist Neck: supple, no JVD Lungs: normal respiratory effort, no wheezes or rales CV: Regular rate and rhythm, no murmur. Peripheral pulses 2+ Abdomen: soft, nondistended, nontender, no organomegaly. Skin: warm and dry. Neuro: Alert and oriented 3, mood and affect normal - Labs CBC & Chem 7: 05/04/21 05:24 05/04/21 05:24 Labs: Abnormal Lab Results - Last 24 Hours (Table) 05/04/21 05/04/21 Range/Units 05:24 05:24 WBC 17.3 H (3.8-10.6) k/uL RBC 3.75 L (4.30-5.90) m/uL Hgb 12.5 L (13.0-17.5) gm/dL Hct 38.4 L (39.0-53.0) % MCV 102.5 H (80.0-100.0) fL Neutrophils # 13.3 H (1.3-7.7) k/uL Sodium 131 L (137-145) mmol/L BUN 41 H (9-20) mg/dL Creatinine 1.36 H (0.66-1.25) mg/dL Calcium 8.2 L (8.4-10.2) mg/dL Microbiology - Last 24 Hours (Table) 05/01/21 10:30 Anaerobic Culture - Preliminary Paracentesis Fluid 05/01/21 10:30 Gram Stain - Preliminary Paracentesis Fluid Body Fluid Culture - Preliminary Assessment and Plan Assessment: Alcoholic hepatitis with ascites, status post paracentesis with 9.4 L drained Acute cystitis Psoas hematoma,Surgery following Chronic kidney disease Plan: Continue on current medication regime ,monitoring and symptomatic treatment. Cytology pending. GI discussing potential repeat paracentesis prior to discharge back to subacute rehab. Patient currently declining. The impression and plan of care has been dictated as directed. : I performed a history and examination of this patient, discussed the same with the dictator. I agree with the dictator's note ,documented as a scribe. Any additional findings or plans will be noted.
[2021-05-05] MEDS: PANTOPRAZOLE 40 MG TABLET PO SCH (07:50)
[2021-05-05] MEDS: FOLIC ACID 1 MG TAB PO SCH (07:50)
[2021-05-05] MEDS: SPIRONOLACTONE 25 MG TAB PO SCH (07:50)
[2021-05-05] MEDS: FUROSEMIDE 40 MG TAB PO SCH (07:50)
[2021-05-05] MEDS: SODIUM BICARBONATE TAB 650 MG TAB PO SCH ×2 (07:50→20:37)
[2021-05-05] MEDS: FLUCONAZOLE 150 MG TAB PO SCH (07:51)
[2021-05-05 09:28] LABS: Basophils % (A) 0.6 %; Eosinophils # (A) 0.18 X 10*3/uL (0.04-0.35); Eosinophils % (A) 1.1 %; HCT 37.5 % (39.6-50.0); HGB 12.1 g/dL (13.0-17.0); Lymphocytes # (A) 3.49 X 10*3/uL (0.90-5.00); Lymphocytes % (A) 21.3 %; MCH 32.2 pg (27.0-32.0); MCHC 32.3 g/dL (32.0-37.0); MCV 99.7 fL (80.0-97.0); Mean Platelet Volume 11.1 fL (9.5-12.2); Monocytes # (A) 1.21 X 10*3/uL (0.20-1.00); Monocytes % (A) 7.4 %; Neutrophils # (A) 11.13 X 10*3/uL (1.80-7.70); Neutrophils % (A) 67.9 %; Platelet Count 306 X 10*3/uL (140-440); RBC 3.76 X 10*6/uL (4.40-5.60); WBC 16.39 X 10*3/uL (4.50-10.00)
[2021-05-05 10:32] LABS: African American GFR (CKD) 49.8 (60.0-200.0); Anion Gap 11.3 mmol/L (4.00-12.00); BUN/Creat Ratio 27.5 Ratio (12.00-20.00); Carbon Dioxide 23.7 mmol/L (21.6-31.8); Potassium 4.2 mmol/L (3.5-5.5)
[2021-05-05 11:19] LABS: INR 1.2 (<1.2); Prothrombin Time 12.7 sec (9.0-12.0)
--- NOTE | 2021-05-05 13:32 | P.PN ---
Subjective Progress Note Date: 05/05/21 Principal diagnosis: Ascites and cirrhosis of the liver This is a 70-year-old pleasant white male who was admitted to the hospital for complaints of abdominal pain along the right lower abdomen and flank area. Patient also noted to have a abdominal distention. He was recently hospitalized earlier this month with altered mental status and has a history of heavy alcohol abuse and recently was drinking up until his past hospitalization. During his last hospitalization he was noted to have elevated LFTs and mild amount of ascites. He has a past medical history of heavy alcohol abuse for more than 50 years duration drinking several pints of alcohol and a daily basis. Patient reports falling on his right side about 2 months ago and has significant bruising. He had a CT of the abdomen in the emergency department as part of his workup that showed new cirrhosis with evidence of underlying portal venous hypertension as there is moderate to large amount of intraparenchymal to kneel ascites and mild splenomegaly. Likely reactive small to moderate size left greater than right pleural effusions. Moderate pelvic soft tissue anasarca noted. Bilateral nonobstructing renal calculi. Stable mild/moderate left-sided hydronephrosis without obstructing stone or hydroureter, consider underlying UPJ stricture or stenosis. There is moderate sized right retroperitoneal acute or subacute intramuscular hematoma involving proximal one half of the right iliopsoas muscle. Correlate clinically and with hemoglobin values. From previous admission he was discharged home on Lasix 40 mg daily. He is noted to have abdominal distention on admission. Patient underwent a paracentesis on Tuesday with removal of 9.4 L of fluid. He states he is still having some mild abdominal discomfort. He denies any nausea or vomiting. Still has decreased appetite. Patient states abdominal distention is increasing and is willing to undergo repeat paracentesis. Objective - Vital Signs Vital signs: Vital Signs Temp 97.7 F 05/05/21 07:56 Pulse 93 05/05/21 07:56 Resp 18 05/05/21 07:56 BP 116/84 05/05/21 07:56 Pulse Ox 98 05/05/21 07:56 Intake & Output 05/04/21 05/05/21 05/05/21 18:59 06:59 18:59 Intake Total 240 Output Total 250 Balance 240 -250 Weight 86 kg 87.5 kg Intake: Oral 240 Output: Urine 250 Other: Voiding Method Indwelling Catheter Indwelling Catheter # Bowel Movements 1 - Exam General appearance: The patient is alert, oriented, appears in no acute distress. HET: Head is normocephalic and atraumatic. Conjunctiva pink. Sclera anicteric. Neck: Supple without lymphadenopathy. Abdomen: Soft, diffuse tenderness, distended with bowel sounds. No guarding or rigidity. Extremities: Normal skin color and turgor. No pedal edema Skin: No rashes, no jaundice Neurological: No focal deficits. Alert and oriented 3. - Labs CBC & Chem 7: 05/05/21 06:09 05/05/21 06:09 Labs: Microbiology - Last 24 Hours (Table) 05/01/21 10:30 Anaerobic Culture - Preliminary Paracentesis Fluid 05/01/21 10:30 Gram Stain - Preliminary Paracentesis Fluid Body Fluid Culture - Preliminary Assessment and Plan (1) Ascites Narrative/Plan: 70-year-old male with a medical history significant for alcohol abuse who presented to the emergency department with complaints of abdominal pain. Patient was recently hospitalized earlier this month with aspiration pneumonia and gastroenterology had seen patient for altered mental status and elevated LFTs. LFTs were consistent with alcoholic liver disease. During his previous hospitalization he was noted to have mild ascites, he was started on Lasix 40 mg daily. He is currently on Lasix 40 mg daily and Aldactone [address] of the abdomen showed new cirrhosis with evidence of underlying portal venous hypertension is there is moderate to large amount of intraperitoneal ascites and mild splenomegaly. Likely reactive small to moderate left greater than right pleural effusions. Mild pelvic soft tissue anasarca noted. Findings are consistent with decompensated alcoholic cirrhosis of the liver. We'll plan on paracentesis. Patient is status post paracentesis with 9.4 L of fluid removed, status post albumin. Will repea paracentesis. Continue Lasix 40 mg daily and Aldactone 100 mg dailyt Current Visit: Yes Status: Acute Code(s): R18.8 - OTHER ASCITES SNOMED Code(s): 558676780 (2) Cirrhosis of liver Current Visit: Yes Status: Acute Code(s): K74.60 - UNSPECIFIED CIRRHOSIS OF LIVER SNOMED Code(s): 69393224 (3) Alcohol abuse Current Visit: No Status: Acute Code(s): F10.10 - ALCOHOL ABUSE, UNCOMPLICATED SNOMED Code(s): 06811589 Plan: 1. Continue symptomatic and supportive care 2. Repeat paracentesis ordered 3. Continue Lasix 40 mg daily, increase Aldactone to 100 mg daily 4. Low sodium diet 5. Alcohol abstinence. 6. Patient to follow-up with gastroenterology in 1-2 weeks Thank you for this consultation, we will continue to follow Dr. Pascual Roldan I agree with the dictator's note, documented as a scribe by Ronit Swan.
--- NOTE | 2021-05-05 16:23 | US ---
EXAMINATION TYPE: US paracentesis abd w/image DATE OF EXAM: 05/05/2021 COMPARISON: NONE HISTORY: Ascites. PROCEDURE: Maximal barrier technique was utilized. The skin overlying a suitable pocket of fluid was localized with ultrasound and the overlying skin was prepped and draped. Ultrasound was utilized with sterile technique. Lidocaine was used for local anesthesia and a skin basil made with a scalpel. Catheter was advanced under direct ultrasound guidance into a suitable pocket of fluid and approximately 9.3 liter s of serous sanguinous fluid were removed. Catheter was withdrawn and hemostasis achieved. There is no immediate complication; the patient is discharged in stable condition. IMPRESSION: STATUS POST ULTRASOUND GUIDED PARACENTESIS FOR PALLIATION OF ASCITES. THIS PROCEDURE WA S PERFORMED BY THE UNDERSIGNED.
--- NOTE | 2021-05-05 16:33 | P.PN ---
Subjective Progress Note Date: 05/05/21 Neri Kurtz is a 70 yo M with PMH of alcoholism, recent admission 04/02-04/17 for alcohol withdrawal and community acquired pneumonia who presented to the ED from subacute rehab with generalized abdominal pain. He denies any nausea, vomiting or diarreha. States the pain has been going on at least a few days. He does have a hudson in place. He denies fever, chills, or sweats. On presentation vitals stable, afebrile SpO2 95% on 2 LPM O2, labs showing WBC 13k, lactic 2.6, urine bacteria present. CT abd/pelvis with ascites, portal hypertension and psoas hematoma. 05/04/2021 status post large volume paracentesis of 9.4 L drained on Tuesday. Cytology pending. Aldactone had been increased at that time. Continues on low sodium diet. Abdomen soft minimal discomfort but appears to be reaccumulating. Denies chest pain, palpitations or shortness of breath. Afebrile, labs pending. 05/05/2021 abdominal distention worsening, scheduled for repeat paracentesis. Renal function worsening, appetite remains fair. Objective - Vital Signs Vital signs: Vital Signs Temp 97.7 F 05/05/21 07:56 Pulse 98 05/05/21 16:00 Resp 18 05/05/21 16:00 BP 105/70 05/05/21 16:00 Pulse Ox 97 05/05/21 16:00 Intake & Output 05/04/21 05/05/21 05/05/21 18:59 06:59 18:59 Intake Total 240 Output Total 250 Balance 240 -250 Weight 86 kg 87.5 kg Intake: Oral 240 Output: Urine 250 Other: Voiding Method Indwelling Catheter Indwelling Catheter Indwelling Catheter # Bowel Movements 1 - Exam General: Sitting up in bed, NAD. Vitals reviewed Eyes: PERRL, EOMI, conjunctiva normal HENT: normocephalic, mucus membranes moist Neck: supple, no JVD Lungs: normal respiratory effort, no wheezes or rales CV: Regular rate and rhythm, no murmur. Peripheral pulses 2+ Abdomen: soft, distended, mild diffuse tenderness, no guarding, positive bowel sounds Skin: warm and dry. Neuro: Alert and oriented 3, mood and affect normal - Labs CBC & Chem 7: 05/05/21 06:09 05/05/21 06:09 Labs: Abnormal Lab Results - Last 24 Hours (Table) 05/05/21 05/05/21 05/05/21 Range/Units 06:09 06:09 10:24 WBC 16.39 H (4.50-10.00) X 10*3/uL RBC 3.76 L (4.40-5.60) X 10*6/uL Hgb 12.1 L (13.0-17.0) g/dL Hct 37.5 L (39.6-50.0) % MCV 99.7 H (80.0-97.0) fL MCH 32.2 H (27.0-32.0) pg RDW 15.0 H (11.5-14.5) % Immature Gran # 0.28 H (0.00-0.04) X 10*3/uL Neutrophils # 11.13 H (1.80-7.70) X 10*3/uL Monocytes # 1.21 H (0.20-1.00) X 10*3/uL PT 12.7 H (9.0-12.0) sec INR 1.2 H (<1.2) Sodium 133 L (135-145) mmol/L BUN 44.0 H (9.0-27.0) mg/dL Creatinine 1.6 H (0.6-1.5) mg/dL Est GFR (CKD-EPI)AfAm 49.8 L (60.0-200.0) Est GFR (CKD-EPI)NonAf 43.0 L (60.0-200.0) BUN/Creatinine Ratio 27.50 H (12.00-20.00) Ratio Calcium 8.0 L (8.7-10.3) mg/dL Microbiology - Last 24 Hours (Table) 05/01/21 10:30 Gram Stain - Preliminary Paracentesis Fluid Body Fluid Culture - Preliminary 05/01/21 10:30 Anaerobic Culture - Preliminary Paracentesis Fluid Assessment and Plan Assessment: Alcoholic hepatitis with ascites, status post paracentesis with 9.4 L drained Acute cystitis Psoas hematoma,Surgery following Chronic kidney disease Plan: Continue on current medication regime ,monitoring and symptomatic treatment. Cytology reporting scattered degenerated acute and chronic inflammatory cells and rare mesothelial cells, currently negative for diagnostic malignant cells .Repeat paracentesis pending for today. Discharge to [facility]CF tomorrow. The impression and plan of care has been dictated as directed. : I performed a history and examination of this patient, discussed the same with the dictator. I agree with the dictator's note ,documented as a scribe. Any additional findings or plans will be noted.
[2021-05-06] MEDS: FOLIC ACID 1 MG TAB PO SCH (08:25)
[2021-05-06] MEDS: SODIUM BICARBONATE TAB 650 MG TAB PO SCH ×2 (08:25→20:45)
[2021-05-06] MEDS: PANTOPRAZOLE 40 MG TABLET PO SCH (08:25)
[2021-05-06] MEDS: FLUCONAZOLE 150 MG TAB PO SCH (08:25)
[2021-05-06] MEDS: FUROSEMIDE 40 MG TAB PO SCH (08:25)
[2021-05-06] MEDS: SPIRONOLACTONE 25 MG TAB PO SCH (08:25)
--- NOTE | 2021-05-06 11:56 | P.DS ---
Providers Date of admission: 04/29/21 10:52 Expected date of discharge: 05/06/21 Attending physician: Pete Pro MD Consults: 04/29/21 23:41 Consult Physician Routine Consulting Provider: Sosa Roldan Consult Reason/Comments: alcoholism, ascites Do you want consulting provider notified?: Yes, Notify in am Primary care physician: Pete Pro MD Hospital Course: Final Diagnoses: Alcoholic hepatitis with ascites, status post paracentesis with 9.4 L drained Acute cystitis Psoas hematoma,Surgery reviewed CT reporting hematoma fairly small with no surgical intervention recommended. Chronic kidney disease Hospital course:Neri Kurtz is a 70 yo M with PMH of alcoholism, recent admission 04/02-04/17 for alcohol withdrawal and community acquired pneumonia who presented to the ED from subacute rehab with generalized abdominal pain. He denies any nausea, vomiting or diarreha. States the pain has been going on at least a few days. He does have a hudson in place. He denies fever, chills, or sweats. On presentation vitals stable, afebrile SpO2 95% on 2 LPM O2, labs showing WBC 13k, lactic 2.6, urine bacteria present. CT abd/pelvis with ascites, portal hypertension and psoas hematoma. 05/04/2021 status post large volume paracentesis of 9.4 L drained on Tuesday. Cytology pending. Aldactone had been increased at that time. Continues on low sodium diet. Abdomen soft minimal discomfort but appears to be reaccumulating. Denies chest pain, palpitations or shortness of breath. Afebrile, labs pending. 05/05/2021 abdominal distention worsening, scheduled for repeat paracentesis. Renal function worsening, appetite remains fair. Cytology reporting scattered degenerated acute and chronic inflammatory cells and rare mesothelial cells, currently negative for diagnostic malignant cells .Repeat paracentesis yesterday with 9.3 L of serosanguineous fluid removed. Tolerated procedure well. Significant clinical improvement . Denies chest pain, palpitations or shortness of breath.Cleared by GI for discharge. Patient will be discharged to subacute rehab in a stable condition with guarded prognosis. Anticipated repeat outpatient paracentesis prn. Alcohol abstinence reinforced. Encourage oral intake, Maintain low-sodium diet, Lasix 40 daily with Aldactone increased to 100 mg daily. The impression and plan of care has been dictated as directed. : I performed a history and examination of this patient, discussed the same with the dictator. I agree with the dictator's note ,documented as a scribe. Any additional findings or plans will be noted. Patient Condition at Discharge: Stable Plan - Discharge Summary Discharge Rx Participant: Yes New Discharge Prescriptions: New Spironolactone [Aldactone] 100 mg PO DAILY tab Fluconazole [Diflucan] 150 mg PO DAILY #5 tab Continue Enoxaparin [Lovenox] 40 mg SQ DAILY syringe Sodium Bicarbonate Tab 650 mg PO BID tab Folic Acid 1 mg PO DAILY #30 tablet Omeprazole 20 mg PO DAILY Acetaminophen Tab [Tylenol] 650 mg PO Q6HR PRN tab PRN Reason: Fever And/ Or Pain Thiamine [Vitamin B-1] 100 mg PO DAILY tab Multivitamins, Thera [Multivitamin (formulary)] 1 tab PO DAILY #30 tablet Furosemide [Lasix] 40 mg PO DAILY #30 tablet Ipratropium-Albuterol Nebulize [Duoneb 0.5 mg-3 mg/3 ml Soln] 3 ml INHALATION RT-Q4H PRN PRN Reason: Shortness Of Breath Ipratropium-Albuterol Nebulize [Duoneb 0.5 mg-3 mg/3 ml Soln] 3 ml INHALATION RT-Q6H Healthshake 1 can PO TID@0700,1200,1700 Discharge Medication List Acetaminophen Tab [Tylenol] 650 mg PO Q6HR PRN tab 04/15/21 [Rx] Enoxaparin [Lovenox] 40 mg SQ DAILY syringe 04/15/21 [Rx] Folic Acid 1 mg PO DAILY #30 tablet 04/15/21 [Rx] Furosemide [Lasix] 40 mg PO DAILY #30 tablet 04/15/21 [Rx] Multivitamins, Thera [Multivitamin (formulary)] 1 tab PO DAILY #30 tablet 04/15/21 [Rx] Sodium Bicarbonate Tab 650 mg PO BID tab 04/15/21 [Rx] Thiamine [Vitamin B-1] 100 mg PO DAILY tab 04/15/21 [Rx] Healthshake 1 can PO TID@0700,1200,1700 04/28/21 [History] Ipratropium-Albuterol Nebulize [Duoneb 0.5 mg-3 mg/3 ml Soln] 3 ml INHALATION RT-Q4H PRN 04/28/21 [History] Ipratropium-Albuterol Nebulize [Duoneb 0.5 mg-3 mg/3 ml Soln] 3 ml INHALATION RT-Q6H 04/28/21 [History] Omeprazole 20 mg PO DAILY 04/28/21 [History] Fluconazole [Diflucan] 150 mg PO DAILY #5 tab 05/06/21 [Rx] Spironolactone [Aldactone] 100 mg PO DAILY tab 05/06/21 [Rx] Follow up Appointment(s)/Referral(s): Pete Pro MD [Primary Care Provider] - 1 Week (After DC from subacute rehab) Sosa Roldan MD [STAFF PHYSICIAN] - 07/07/21 3:30 pm
[2021-05-06 12:01] LABS: HCT 38.8 % (39.0-53.0); HGB 12.4 gm/dL (13.0-17.5); MCH 32.5 pg (25.0-35.0); MCHC 31.9 g/dL (31.0-37.0); MCV 101.8 fL (80.0-100.0); Macrocytosis Slight; Mean Platelet Volume 8.7; Platelet Count 332 k/uL (150-450); RBC 3.81 m/uL (4.30-5.90); RDW 14.8 % (11.5-15.5); WBC 17.7 k/uL (3.8-10.6)
[2021-05-06 12:12] LABS: African American GFR (CKD) 50 (>60 ml/min/1.73 sqM); Anion Gap 6 mmol/L; Blood Urea Nitrogen 52 mg/dL (9-20); Carbon Dioxide 23 mmol/L (22-30); Chloride 95 mmol/L (98-107); Glucose 102 mg/dL (74-99); Non-African American GFR(CKD) 44 (>60 ml/min/1.73 sqM); Potassium 4.3 mmol/L (3.5-5.1); Sodium 124 mmol/L (137-145)
--- NOTE | 2021-05-06 14:43 | P.PN ---
Subjective Progress Note Date: 05/06/21 Principal diagnosis: Ascites and cirrhosis of the liver This is a 70-year-old pleasant white male who was admitted to the hospital for complaints of abdominal pain along the right lower abdomen and flank area. Patient also noted to have a abdominal distention. He was recently hospitalized earlier this month with altered mental status and has a history of heavy alcohol abuse and recently was drinking up until his past hospitalization. During his last hospitalization he was noted to have elevated LFTs and mild amount of ascites. He has a past medical history of heavy alcohol abuse for more than 50 years duration drinking several pints of alcohol and a daily basis. Patient reports falling on his right side about 2 months ago and has significant bruising. He had a CT of the abdomen in the emergency department as part of his workup that showed new cirrhosis with evidence of underlying portal venous hypertension as there is moderate to large amount of intraparenchymal to kneel ascites and mild splenomegaly. Likely reactive small to moderate size left greater than right pleural effusions. Moderate pelvic soft tissue anasarca noted. Bilateral nonobstructing renal calculi. Stable mild/moderate left-sided hydronephrosis without obstructing stone or hydroureter, consider underlying UPJ stricture or stenosis. There is moderate sized right retroperitoneal acute or subacute intramuscular hematoma involving proximal one half of the right iliopsoas muscle. Correlate clinically and with hemoglobin values. From previous admission he was discharged home on Lasix 40 mg daily. He is noted to have abdominal distention on admission. Patient underwent paracentesis yesterday with 9.3 L of fluid removed. Today he states he has some abdominal tenderness at this site. He denies any nausea or vomiting. States he continues to have a decreased appetite. Have a drop in his sodium to 124. Fluid cytology negative for malignant cells. Objective - Vital Signs Vital signs: Vital Signs Temp 97.9 F 05/06/21 07:02 Pulse 95 05/06/21 07:02 Resp 17 05/06/21 07:02 BP 112/68 05/06/21 07:02 Pulse Ox 100 05/06/21 08:25 Intake & Output 05/05/21 05/06/21 05/06/21 18:59 06:59 18:59 Output Total 250 450 Balance -250 -450 Weight 78.5 kg Output: Urine 250 450 Other: Voiding Method Indwelling Catheter Indwelling Catheter - Exam General appearance: The patient is alert, oriented, appears in no acute distress. HET: Head is normocephalic and atraumatic. Conjunctiva pink. Sclera anicteric. Neck: Supple without lymphadenopathy. Abdomen: Soft, nontender, nondistended with bowel sounds. No guarding or rigidity. Extremities: Normal skin color and turgor. Pedal edema bilaterally. Skin: No rashes, no jaundice Neurological: No focal deficits. Alert and oriented 3. - Labs CBC & Chem 7: 05/06/21 11:28 05/06/21 11:28 Labs: Abnormal Lab Results - Last 24 Hours (Table) 05/05/21 05/05/21 05/05/21 Range/Units 06:09 06:09 10:24 WBC 16.39 H (4.50-10.00) X 10*3/uL RBC 3.76 L (4.40-5.60) X 10*6/uL Hgb 12.1 L (13.0-17.0) g/dL Hct 37.5 L (39.6-50.0) % MCV 99.7 H (80.0-97.0) fL MCH 32.2 H (27.0-32.0) pg RDW 15.0 H (11.5-14.5) % Immature Gran # 0.28 H (0.00-0.04) X 10*3/uL Neutrophils # 11.13 H (1.80-7.70) X 10*3/uL Monocytes # 1.21 H (0.20-1.00) X 10*3/uL PT 12.7 H (9.0-12.0) sec INR 1.2 H (<1.2) Sodium 133 L (135-145) mmol/L BUN 44.0 H (9.0-27.0) mg/dL Creatinine 1.6 H (0.6-1.5) mg/dL Est GFR (CKD-EPI)AfAm 49.8 L (60.0-200.0) Est GFR (CKD-EPI)NonAf 43.0 L (60.0-200.0) BUN/Creatinine Ratio 27.50 H (12.00-20.00) Ratio Calcium 8.0 L (8.7-10.3) mg/dL Microbiology - Last 24 Hours (Table) 05/01/21 10:30 Gram Stain - Preliminary Paracentesis Fluid Body Fluid Culture - Preliminary Assessment and Plan (1) Ascites Narrative/Plan: 70-year-old male with a medical history significant for alcohol abuse who presented to the emergency department with complaints of abdominal pain. Patient was recently hospitalized earlier this month with aspiration pneumonia and gastroenterology had seen patient for altered mental status and elevated LFTs. LFTs were consistent with alcoholic liver disease. During his previous hospitalization he was noted to have mild ascites, he was started on Lasix 40 mg daily. He is currently on Lasix 40 mg daily and Aldactone [address] of the abdomen showed new cirrhosis with evidence of underlying portal venous hypertension is there is moderate to large amount of intraperitoneal ascites and mild splenomegaly. Likely reactive small to moderate left greater than right pleural effusions. Mild pelvic soft tissue anasarca noted. Findings are consistent with decompensated alcoholic cirrhosis of the liver. We'll plan on paracentesis. Patient is status post paracentesis with 9.4 L of fluid removed, status post albumin. Will repea paracentesis. Continue Lasix 40 mg daily and Aldactone 100 mg dailyt Current Visit: Yes Status: Acute Code(s): R18.8 - OTHER ASCITES SNOMED Code(s): 436407562 (2) Cirrhosis of liver Current Visit: Yes Status: Acute Code(s): K74.60 - UNSPECIFIED CIRRHOSIS OF LIVER SNOMED Code(s): 72218396 (3) Alcohol abuse Current Visit: No Status: Acute Code(s): F10.10 - ALCOHOL ABUSE, UNCOMPLICATED SNOMED Code(s): 28613127 (4) Hyponatremia Narrative/Plan: We'll put patient on fluid restriction of 1200 mL daily. Repeat BMP in the morning. If remains hyponatremic, consider nephrology consult. Current Visit: Yes Status: Acute Code(s): E87.1 - HYPO-OSMOLALITY AND HYPONATREMIA SNOMED Code(s): 64671126 Plan: 1. Continue symptomatic and supportive care 2. Patient is status post paracentesis 3. Continue Lasix 40 mg daily, increase Aldactone to 100 mg daily 4. Low sodium diet 5. Alcohol abstinence 6. Keep on a 1200 mL fluid restriction 7. Repeat BMP the morning 8. Patient to follow-up with gastroenterology in 1-2 weeks, likely will need outpatient paracentesis Thank you for this consultation, we will continue to follow Dr. Pascual Roldan I agree with the dictator's note, documented as a scribe by Ronit Swan.
[2021-05-06] MEDS: ALBUMIN HUMAN 25% 50 ML in EMPTY BAG 1 BAG IVPB SCH ×4 (14:59→23:02)
[2021-05-06] MEDS: ACETAMINOPHEN TAB 325 MG TAB PO PRN ×2 (16:49→21:52)
[2021-05-07 08:26] LABS: ALT 28 U/L (4-49); AST 46 U/L (17-59); African American GFR (CKD) 44 (>60 ml/min/1.73 sqM); Albumin 2.6 g/dL (3.5-5.0); Alkaline Phosphatase 725 U/L (38-126); Anion Gap 7 mmol/L; Blood Urea Nitrogen 52 mg/dL (9-20); Calcium 8.5 mg/dL (8.4-10.2); Carbon Dioxide 25 mmol/L (22-30); Chloride 94 mmol/L (98-107); Globulin 2.6 g/dL; Glucose 82 mg/dL (74-99); Magnesium 1.7 mg/dL (1.6-2.3); Non-African American GFR(CKD) 38 (>60 ml/min/1.73 sqM); Potassium 4.3 mmol/L (3.5-5.1); Sodium 126 mmol/L (137-145); Total Bilirubin 3.8 mg/dL (0.2-1.3); Total Protein 5.2 g/dL (6.3-8.2)
[2021-05-07] MEDS: PANTOPRAZOLE 40 MG TABLET PO SCH (08:35)
[2021-05-07] MEDS: FOLIC ACID 1 MG TAB PO SCH (08:35)
[2021-05-07] MEDS: SODIUM BICARBONATE TAB 650 MG TAB PO SCH ×2 (08:35→20:57)
[2021-05-07] MEDS: FLUCONAZOLE 150 MG TAB PO SCH (08:35)
--- NOTE | 2021-05-07 10:16 | P.NPCON ---
History of Present Illness - Reason for Consult acute renal failure, hyponatremia - History of Present Illness Reason for consultation: Acute kidney injury on chronic kidney disease and hyponatremia History of present illness: The patient is a 70-year-old male seen in renal consultation for acute kidney injury on chronic kidney disease and hyponatremia. Patient has chronic kidney disease stage IIIa with baseline creatinine in the range of 1.1-1.3 secondary to nephrosclerosis and hepatorenal syndrome. Creatinine was as low as 1.13 this admission and is up to 1.78 today. Patient has history of liver cirrhosis. He underwent paracentesis on May 05 19.3 L drained. Yesterday sodium level dropped from 133-124 and his diuretics were held. This morning sodium level is 126. He also received 2 doses of IV albumin yesterday. He is currently resting in bed and is not providing much history. Blood pressure stable. No hematuria or dysuria. No fever or chills. Currently on 2 L nasal cannula. Vital signs are stable. General: The patient appeared well nourished and normally developed. HEENT: Head exam is unremarkable. Neck is without jugular venous distension. LUNGS: Breath sounds decreased. HEART: Rate and Rhythm are regular. ABDOMEN: Soft, mild distention. EXTREMITITES: Trace edema. Past Medical History Past Medical History: COPD, Hypertension Additional Past Medical History / Comment(s): Alcoholism-patient was drinking a fifth/gallon of alcohol daily until recent admission April 01, 2021; smoker; COPD; herniated discs, arrived at hospital with hudson catheter from [facility] History of Any Multi-Drug Resistant Organisms: None Reported Past Surgical History: No Surgical Hx Reported Past Anesthesia/Blood Transfusion Reactions: No Reported Reaction Past Psychological History: No Psychological Hx Reported Smoking Status: Former smoker Past Alcohol Use History: Abuse, Daily, Heavy Additional Past Alcohol Use History / Comment(s): Patient was drinking a fifth / gallon daily for many years prior to recent hospital admission April 01, 2021. Per daughter. Patient was sent from hospital to [facility] for marleny ab. Patient was living in a home with friends, the home was raided by police for cooking meth. Past Drug Use History: Marijuana Medications and Allergies Home Medications Medication Instructions Recorded Confirmed Type Acetaminophen Tab [Tylenol] 650 mg PO Q6HR PRN tab 04/15/21 04/28/21 Rx Enoxaparin [Lovenox] 40 mg SQ DAILY syringe 04/15/21 04/28/21 Rx Folic Acid 1 mg PO DAILY #30 tablet 04/15/21 04/28/21 Rx Furosemide [Lasix] 40 mg PO DAILY #30 tablet 04/15/21 04/28/21 Rx Multivitamins, Thera [Multivitamin 1 tab PO DAILY #30 tablet 04/15/21 04/28/21 Rx (formulary)] Sodium Bicarbonate Tab 650 mg PO BID tab 04/15/21 04/28/21 Rx Thiamine [Vitamin B-1] 100 mg PO DAILY tab 04/15/21 04/28/21 Rx Healthshake 1 can PO TID@0700,1200,1700 04/28/21 04/28/21 History Ipratropium-Albuterol Nebulize 3 ml INHALATION RT-Q4H PRN 04/28/21 04/28/21 History [Duoneb 0.5 mg-3 mg/3 ml Soln] Ipratropium-Albuterol Nebulize 3 ml INHALATION RT-Q6H 04/28/21 04/28/21 History [Duoneb 0.5 mg-3 mg/3 ml Soln] Omeprazole 20 mg PO DAILY 04/28/21 04/28/21 History Fluconazole [Diflucan] 150 mg PO DAILY #5 tab 05/06/21 Rx Spironolactone [Aldactone] 100 mg PO DAILY tab 05/06/21 Rx Allergies Allergy/AdvReac Type Severity Reaction Status Date / Time No Known Allergies Allergy Verified 04/28/21 12:57 Physical Exam Vitals: Vital Signs Temp Pulse Resp BP BP Pulse Ox 05/07/21 08:00 18 05/07/21 07:40 98.0 F 88 18 106/73 95 05/07/21 00:32 98.1 F 71 16 105/71 95 05/06/21 19:47 97.9 F 95 16 120/66 95 05/06/21 15:06 98.2 F 95 17 103/72 95 Intake and Output 05/06/21 05/07/21 05/07/21 22:59 06:59 14:59 Output Total 250 Balance -250 Output: Urine 250 Other: Voiding Method Indwelling Catheter Indwelling Catheter Weight 80 kg Results - Lab Results Most recent lab results Calcium 8.5 mg/dL (8.4-10.2) 05/07/21 07:17 Magnesium 1.7 mg/dL (1.6-2.3) 05/07/21 07:17 05/06/21 11:28 05/07/21 07:17 Assessment and Plan Plan: Assessment: 1. Hypovolemic hyponatremia post large volume paracentesis. Sodium level is better today. 2. Chronic kidney disease stage IIIA with baseline creatinine 1.1-1.3 secondary to hepatorenal syndrome. 3. Acute kidney injury secondary to ATN from large volume paracentesis. Creatinine 1.70 today. 4. Alcohol induced liver cirrhosis. 5. Left-sided hydronephrosis noted on CAT scan. Plan: Resume Lasix and Aldactone. 1200 mL fluid restriction. Status post IV albumin May 06. Check renal ultrasound. Quantify proteinuria. Avoid nephrotoxins. Thank you for the consultation. I will continue to follow the patient with you during his hospital stay.
--- NOTE | 2021-05-07 11:13 | XR ---
EXAMINATION TYPE: XR chest 1V portable DATE OF EXAM: 05/07/2021 COMPARISON: Chest x-ray 04/28/2021 HISTORY: Hypoxia TECHNIQUE: Single frontal view of the chest is obtained. FINDINGS: Bandlike areas of increased attenuation within the lungs likely represent subsegmental ate lectatic change, elevation of the right hemidiaphragm is again noted. Patient is rotated. Old clavicu lar fractures are again noted. There is no evident pneumothorax. Cardiac mediastinal silhouette is st able. There is some improvement in aeration of the lung volumes are low. There are overlying artifact s. Retrocardiac density persists. Old left-sided rib fractures are present. IMPRESSION: There may be some slight interval improvement in aeration, expiratory rotated exam with subsegmental atelectatic changes or scarring again noted. Difficult to exclude pneumonia, effusions.
[2021-05-07 11:17] LABS: HCT 32.1 % (39.6-50.0); HGB 10.6 g/dL (13.0-17.0); MCH 31.5 pg (27.0-32.0); MCV 95.3 fL (80.0-97.0); Mean Platelet Volume 10.7 fL (9.5-12.2); Platelet Count 325 X 10*3/uL (140-440); RBC 3.37 X 10*6/uL (4.40-5.60); RDW 14.9 % (11.5-14.5); WBC 13.45 X 10*3/uL (4.50-10.00)
[2021-05-07] MEDS: SPIRONOLACTONE 25 MG TAB PO SCH (13:00)
[2021-05-07] MEDS: FUROSEMIDE 40 MG TAB PO SCH (13:01)
--- NOTE | 2021-05-07 13:53 | US ---
EXAMINATION TYPE: US kidneys/renal and bladder DATE OF EXAM: 05/07/2021 COMPARISON: CT 04/28/2021 CLINICAL HISTORY: 70 year old male acute kidney injury, abnormal labs. Bladder Lou. TECHNIQUE: Multiple sonographic images of the kidneys and bladder are obtained. FINDINGS: EXAM MEASUREMENTS: Right Kidney: 11.4 x 5.5 x 5.4 cm Left Kidney: 10.0 x 4.4 x 5.9 cm Sr Vice President notes:limited left kidney visualization due to patient unable to move or turn for exam Right Kidney: lower pole echogenic focus with shadow= 0.8 cm Left Kidney: anechoic area in lower renal sinus, not well visualized due to patient position, cyst vs hydronephrosis vs dilatation= 1.4 x 1.1 cm Bladder: Lou seen, bladder assessment limited due to nondistention Bilateral Jets not seen due to Lou Moderate abdominal ascites IMPRESSION: 1. Exam limitations, especially left kidney visualization due to patient's inability to position for the exam. 2. Suspect mild to moderate left hydronephrosis. 3. 8 mm nonobstructive right lower pole renal calculus. 4. Lou catheter in place decompressing the bladder. 5. Moderate ascites fluid
[2021-05-07 14:02] VITALS: BMI 25.2
--- NOTE | 2021-05-07 14:37 | P.PN ---
Subjective Progress Note Date: 05/07/21 Principal diagnosis: Ascites and cirrhosis of the liver This is a 70-year-old pleasant white male who was admitted to the hospital for complaints of abdominal pain along the right lower abdomen and flank area. Patient also noted to have a abdominal distention. He was recently hospitalized earlier this month with altered mental status and has a history of heavy alcohol abuse and recently was drinking up until his past hospitalization. During his last hospitalization he was noted to have elevated LFTs and mild amount of ascites. He has a past medical history of heavy alcohol abuse for more than 50 years duration drinking several pints of alcohol and a daily basis. Patient reports falling on his right side about 2 months ago and has significant bruising. He had a CT of the abdomen in the emergency department as part of his workup that showed new cirrhosis with evidence of underlying portal venous hypertension as there is moderate to large amount of intraparenchymal to kneel ascites and mild splenomegaly. Likely reactive small to moderate size left greater than right pleural effusions. Moderate pelvic soft tissue anasarca noted. Bilateral nonobstructing renal calculi. Stable mild/moderate left-sided hydronephrosis without obstructing stone or hydroureter, consider underlying UPJ stricture or stenosis. There is moderate sized right retroperitoneal acute or subacute intramuscular hematoma involving proximal one half of the right iliopsoas muscle. Correlate clinically and with hemoglobin values. From previous admission he was discharged home on Lasix 40 mg daily. He is noted to have abdominal distention on admission. Patient underwent paracentesis Tuesday with 9.3 L of fluid removed, status post albumin. He continues to have abdominal tenderness near paracentesis site. He denies any nausea or vomiting. States he continues to have a decreased appetite and is only eating small portions. He is been afebrile. Sodium improved to 126 today. Nephrology is on consult he continues with fluid restrictions. Fluid cytology negative for malignant cells. Objective - Vital Signs Vital signs: Vital Signs Temp 98.0 F 05/07/21 07:40 Pulse 88 05/07/21 07:40 Resp 18 05/07/21 08:00 BP 106/73 05/07/21 07:40 Pulse Ox 95 05/07/21 07:40 Intake & Output 05/06/21 05/07/21 05/07/21 18:59 06:59 18:59 Intake Total 480 Output Total 250 Balance 480 -250 Weight 80 kg Intake: Oral 480 Output: Urine 250 Other: Voiding Method Indwelling Catheter Indwelling Catheter - Exam General appearance: The patient is alert, oriented, appears in no acute distress. HET: Head is normocephalic and atraumatic. Conjunctiva pink. Sclera anicteric. Neck: Supple without lymphadenopathy. Abdomen: Soft, nontender, nondistended with bowel sounds. No guarding or rigi dity. Extremities: Normal skin color and turgor. Pedal edema bilaterally. Skin: No rashes, no jaundice Neurological: No focal deficits. Alert and oriented 3. - Labs CBC & Chem 7: 05/07/21 07:09 05/07/21 07:17 Labs: Abnormal Lab Results - Last 24 Hours (Table) 05/06/21 05/06/21 05/06/21 Range/Units 11:28 11:28 11:28 WBC 17.7 H (3.8-10.6) k/uL RBC 3.81 L (4.30-5.90) m/uL Hgb 12.4 L (13.0-17.5) gm/dL Hct 38.8 L (39.0-53.0) % MCV 101.8 H (80.0-100.0) fL Sodium 124 L (137-145) mmol/L Chloride 95 L (98-107) mmol/L BUN 52 H (9-20) mg/dL Creatinine 1.59 H (0.66-1.25) mg/dL Glucose 102 H (74-99) mg/dL Calcium 8.0 L (8.4-10.2) mg/dL Total Bilirubin (0.2-1.3) mg/dL Alkaline Phosphatase (38-126) U/L Total Protein (6.3-8.2) g/dL Albumin (3.5-5.0) g/dL Procalcitonin 0.57 H (0.02-0.09) ng/mL 05/07/21 Range/Units 07:17 WBC (3.8-10.6) k/uL RBC (4.30-5.90) m/uL Hgb (13.0-17.5) gm/dL Hct (39.0-53.0) % MCV (80.0-100.0) fL Sodium 126 L (137-145) mmol/L Chloride 94 L (98-107) mmol/L BUN 52 H (9-20) mg/dL Creatinine 1.78 H (0.66-1.25) mg/dL Glucose (74-99) mg/dL Calcium (8.4-10.2) mg/dL Total Bilirubin 3.8 H (0.2-1.3) mg/dL Alkaline Phosphatase 725 H (38-126) U/L Total Protein 5.2 L (6.3-8.2) g/dL Albumin 2.6 L (3.5-5.0) g/dL Procalcitonin (0.02-0.09) ng/mL Microbiology - Last 24 Hours (Table) 05/01/21 10:30 Anaerobic Culture - Final Paracentesis Fluid 05/01/21 10:30 Gram Stain - Final Paracentesis Fluid Body Fluid Culture - Final Assessment and Plan (1) Ascites Narrative/Plan: 70-year-old male with a medical history significant for alcohol abuse who presented to the emergency department with complaints of abdominal pain. Patient was recently hospitalized earlier this month with aspiration pneumonia and gastroenterology had seen patient for altered mental status and elevated LFTs. LFTs were consistent with alcoholic liver disease. During his previous hospitalization he was noted to have mild ascites, he was started on Lasix 40 mg daily. He is currently on Lasix 40 mg daily and Aldactone [address] of the abdomen showed new cirrhosis with evidence of underlying portal venous hypertension is there is moderate to large amount of intraperitoneal ascites and mild splenomegaly. Likely reactive small to moderate left greater than right pleural effusions. Mild pelvic soft tissue anasarca noted. Findings are consistent with decompensated alcoholic cirrhosis of the liver. We'll plan on paracentesis. Patient is status post paracentesis, status post albumin. Repeat paracentesis as needed. Continue Lasix 40 mg daily and Aldactone 100 mg daily. Current Visit: Yes Status: Acute Code(s): R18.8 - OTHER ASCITES SNOMED Code(s): 414037549 (2) Cirrhosis of liver Current Visit: Yes Status: Acute Code(s): K74.60 - UNSPECIFIED CIRRHOSIS OF LIVER SNOMED Code(s): 00671236 (3) Alcohol abuse Current Visit: No Status: Acute Code(s): F10.10 - ALCOHOL ABUSE, UNCOM PLICATED SNOMED Code(s): 52307364 (4) Hyponatremia Narrative/Plan: We'll put patient on fluid restriction of 1200 mL daily. Repeat BMP in the morning. Nephrology on consult Current Visit: Yes Status: Acute Code(s): E87.1 - HYPO-OSMOLALITY AND HYPON ATREMIA SNOMED Code(s): 07070183 Plan: 1. Continue symptomatic and supportive care 2. Patient is status post paracentesis 3. Continue Lasix 40 mg daily, increase Aldactone to 100 mg daily 4. Low sodium diet 5. Alcohol abstinence 6. Keep on a 1200 mL fluid restriction 7. Repeat BMP the morning 8. Patient to follow-up with gastroenterology in 1-2 weeks, likely will need outpatient paracentesis 9. Continue with recommendations from nephrology Thank you for this consultation, we will continue to follow Dr. Pascual Roldan I agree with the dictator's note, documented as a scribe by Ronit Swan.
--- NOTE | 2021-05-07 14:58 | P.PN ---
Subjective Progress Note Date: 05/07/21 Neri Kurtz is a 70 yo M with PMH of alcoholism, recent admission 04/02-04/17 for alcohol withdrawal and community acquired pneumonia who presented to the ED from subacute rehab with generalized abdominal pain. He denies any nausea, vomiting or diarreha. States the pain has been going on at least a few days. He does have a hudson in place. He denies fever, chills, or sweats. On presentation vitals stable, afebrile SpO2 95% on 2 LPM O2, labs showing WBC 13k, lactic 2.6, urine bacteria present. CT abd/pelvis with ascites, portal hypertension and psoas hematoma. 05/04/2021 status post large volume paracentesis of 9.4 L drained on Tuesday. Cytology pending. Aldactone had been increased at that time. Continues on low sodium diet. Abdomen soft minimal discomfort but appears to be reaccumulating. Denies chest pain, palpitations or shortness of breath. Afebrile, labs pending. 05/05/2021 abdominal distention worsening, scheduled for repeat paracentesis. Renal function worsening, appetite remains fair. Cytology reporting scattered degenerated acute and chronic inflammatory cells and rare mesothelial cells, currently negative for diagnostic malignant cells .Repeat paracentesis yesterday with 9.3 L of serosanguineous fluid removed. Tolerated procedure well. 05/06/2021 Discharge placed on hold, a.m. labs returned reflecting sodium decreased to 124. Pro-calcitonin ordered, restrictions initiated. Recheck lites in a.m. potential nephrology consult if no improvement in sodium, as per GI. Afebrile, WBC 17.7. 05/07/2021 maintain on fluid restrictions, Lasix, Aldactone. Sodium 126 . BUN 52, creatinine up to 1.78. elevated pro-calcitonin, empiric SBP antibiotic Rocephin added to med regimen. Afebrile, minimal abdominal tenderness more so around paracentesis site. T bili up to 3.8, alk phos 725. Poor appetite, denies nausea vomiting. Chest x-ray pending. Objective - Vital Signs Vital signs: Vital Signs Temp 98.1 F 05/07/21 14:00 Pulse 95 05/07/21 14:00 Resp 18 05/07/21 14:00 BP 105/72 05/07/21 14:00 Pulse Ox 96 05/07/21 14:00 Intake & Output 05/06/21 05/07/21 05/07/21 18:59 06:59 18:59 Intake Total 480 Output Total 250 Balance 480 -250 Weight 80 kg 80 kg Intake: Oral 480 Output: Urine 250 Other: Voiding Method Indwelling Catheter Indwelling Catheter - Exam General: Sitting up in bed, NAD. Vitals reviewed Eyes: PERRL, EOMI, conjunctiva normal HENT: normocephalic, mucus membranes moist Neck: supple, no JVD Lungs: normal respiratory effort, no wheezes or rales CV: Regular rate and rhythm, no murmur. Peripheral pulses 2+ Abdomen: soft, distended, mild diffuse tenderness, no guarding, positive bowel sounds Skin: warm and dry. Neuro: Alert and oriented 3, mood and affect normal - Labs CBC & Chem 7: 05/07/21 07:09 05/07/21 07:17 Labs: Abnormal Lab Results - Last 24 Hours (Table) 05/06/21 05/07/21 05/07/21 Range/Units 11:28 07:09 07:17 WBC 13.45 H (4.50-10.00) X 10*3/uL RBC 3.37 L (4.40-5.60) X 10*6/uL Hgb 10.6 L (13.0-17.0) g/dL Hct 32.1 L (39.6-50.0) % RDW 14.9 H (11.5-14.5) % Sodium 126 L (137-145) mmol/L Chloride 94 L (98-107) mmol/L BUN 52 H (9-20) mg/dL Creatinine 1.78 H (0.66-1.25) mg/dL Total Bilirubin 3.8 H (0.2-1.3) mg/dL Alkaline Phosphatase 725 H (38-126) U/L Total Protein 5.2 L (6.3-8.2) g/dL Albumin 2.6 L (3.5-5.0) g/dL Procalcitonin 0.57 H (0.02-0.09) ng/mL Microbiology - Last 24 Hours (Table) 05/01/21 10:30 Anaerobic Culture - Final Paracentesis Fluid Assessment and Plan Assessment: Alcoholic hepatitis with ascites, status post paracentesis with 9.4 L drained Acute cystitis Psoas hematoma,Surgery following Chronic kidney disease Plan: Continue on current medication regime ,monitoring and symptomatic treatment. Maintain fluid restrictions, Lasix and Aldactone. Empiric SBP antibiotic Rocephin added to med regimen. Nephrology consult in place, recommendations pending . The impression and plan of care has been dictated as directed. : I performed a history and examination of this patient, discussed the same with the dictator. I agree with the dictator's note ,documented as a scribe. Any additional findings or plans will be noted.
[2021-05-07 15:55] LABS: Protein/Creatinine Ratio,Urine 0.38
[2021-05-08] MEDS: FOLIC ACID 1 MG TAB PO SCH (08:18)
[2021-05-08] MEDS: PANTOPRAZOLE 40 MG TABLET PO SCH (08:18)
[2021-05-08] MEDS: FLUCONAZOLE 150 MG TAB PO SCH (08:18)
[2021-05-08] MEDS: SPIRONOLACTONE 25 MG TAB PO SCH (08:18)
[2021-05-08] MEDS: SODIUM BICARBONATE TAB 650 MG TAB PO SCH ×2 (08:18→21:07)
[2021-05-08] MEDS: FUROSEMIDE 40 MG TAB PO SCH (08:18)
[2021-05-08 09:30] LABS: Basophils # (A) 0.13 X 10*3/uL (0.00-0.10); Basophils % (A) 0.9 %; Eosinophils # (A) 0.14 X 10*3/uL (0.04-0.35); HCT 33.2 % (39.6-50.0); HGB 11.1 g/dL (13.0-17.0); Lymphocytes # (A) 3.25 X 10*3/uL (0.90-5.00); Lymphocytes % (A) 22.9 %; MCHC 33.4 g/dL (32.0-37.0); MCV 95.7 fL (80.0-97.0); Mean Platelet Volume 10.3 fL (9.5-12.2); Monocytes # (A) 1.12 X 10*3/uL (0.20-1.00); Monocytes % (A) 7.9 %; Neutrophils # (A) 9.26 X 10*3/uL (1.80-7.70); Neutrophils % (A) 65.2 %; Platelet Count 351 X 10*3/uL (140-440); RBC 3.47 X 10*6/uL (4.40-5.60); RDW 14.8 % (11.5-14.5)
--- NOTE | 2021-05-08 09:42 | P.PN ---
Subjective Patient is seen in follow-up for acute kidney injury and hyponatremia. Labs from this morning are pending. Patient is more awake and alert today. Has a Lou catheter. Nonoliguric. Oral intake poor. Vital signs are stable. General: The patient appeared well nourished and normally developed. HEENT: Head exam is unremarkable. Neck is without jugular venous distension. LUNGS: Breath sounds decreased. HEART: Rate and Rhythm are regular. ABDOMEN: Soft, distention noted. EXTREMITITES: 1+ edema. Objective - Vital Signs Vital signs: Vital Signs Temp 98.3 F 05/08/21 08:00 Pulse 73 05/08/21 08:00 Resp 16 05/08/21 08:00 BP 105/65 05/08/21 08:00 Pulse Ox 96 05/08/21 08:00 Intake & Output 05/07/21 05/08/21 05/08/21 18:59 06:59 18:59 Output Total 500 400 Balance -500 -400 Weight 80 kg 79 kg Output: Urine 500 400 Other: Voiding Method Indwelling Catheter Indwelling Catheter # Bowel Movements 1 - Labs CBC & Chem 7: 05/08/21 06:29 05/07/21 07:17 Labs: Abnormal Lab Results - Last 24 Hours (Table) 05/07/21 05/08/21 Range/Units 07:09 06:29 WBC 13.45 H 14.20 H (4.50-10.00) X 10*3/uL RBC 3.37 L 3.47 L (4.40-5.60) X 10*6/uL Hgb 10.6 L 11.1 L (13.0-17.0) g/dL Hct 32.1 L 33.2 L (39.6-50.0) % RDW 14.9 H 14.8 H (11.5-14.5) % Immature Gran # 0.30 H (0.00-0.04) X 10*3/uL Neutrophils # 9.26 H (1.80-7.70) X 10*3/uL Monocytes # 1.12 H (0.20-1.00) X 10*3/uL Basophils # 0.13 H (0.00-0.10) X 10*3/uL Assessment and Plan Plan: Assessment: 1. Hypovolemic hyponatremia post large volume paracentesis. Sodium level 126 yesterday. 2. Chronic kidney disease stage IIIA with baseline creatinine 1.1-1.3 secondary to hepatorenal syndrome. UPC 0.38. 3. Acute kidney injury secondary to ATN from large volume paracentesis. Creatinine 1.78 yesterday. 4. Alcohol induced liver cirrhosis. 5. Mild left-sided hydronephrosis noted on CAT scan which appears to be chronic. Patient will need to see urology outpatient. Plan: Maintain Lasix and Aldactone. 1200 mL fluid restriction. Encourage oral intake, particularly protein. Low salt diet. Status post IV albumin May 06. Repeat UA. Avoid nephrotoxins. Morning labs pending.
[2021-05-08 10:23] LABS: African American GFR (CKD) 43.2 (60.0-200.0); Albumin 2.7 g/dL (3.80-4.90); Albumin/Globulin Ratio 1.17 (1.60-3.17); Anion Gap 7.8 mmol/L (4.00-12.00); BUN/Creat Ratio 27.78 Ratio (12.00-20.00); Calcium 8.4 mg/dL (8.7-10.3); Carbon Dioxide 27.2 mmol/L (21.6-31.8); Globulin 2.3 g/dL (1.6-3.3); Magnesium 1.5 mg/dL (1.5-2.4); Non-African American GFR(CKD) 37.3 (60.0-200.0); Potassium 4.5 mmol/L (3.5-5.5); Total Bilirubin 2.9 mg/dL (0.2-1.2)
--- NOTE | 2021-05-08 13:40 | P.PN ---
Subjective Progress Note Date: 05/08/21 Principal diagnosis: Ascites and cirrhosis of the liver This is a 70-year-old pleasant white male who was admitted to the hospital for complaints of abdominal pain along the right lower abdomen and flank area. Patient also noted to have a abdominal distention. He was recently hospitalized earlier this month with altered mental status and has a history of heavy alcohol abuse and recently was drinking up until his past hospitalization. During his last hospitalization he was noted to have elevated LFTs and mild amount of ascites. He has a past medical history of heavy alcohol abuse for more than 50 years duration drinking several pints of alcohol and a daily basis. Patient reports falling on his right side about 2 months ago and has significant bruising. He had a CT of the abdomen in the emergency department as part of his workup that showed new cirrhosis with evidence of underlying portal venous hypertension as there is moderate to large amount of intraparenchymal to kneel ascites and mild splenomegaly. Likely reactive small to moderate size left greater than right pleural effusions. Moderate pelvic soft tissue anasarca noted. Bilateral nonobstructing renal calculi. Stable mild/moderate left-sided hydronephrosis without obstructing stone or hydroureter, consider underlying UPJ stricture or stenosis. There is moderate sized right retroperitoneal acute or subacute intramuscular hematoma involving proximal one half of the right iliopsoas muscle. Correlate clinically and with hemoglobin values. From previous admission he was discharged home on Lasix 40 mg daily. He is noted to have abdominal distention on admission. Patient is status post paracentesis 2 this admission. Last one on Tuesday with 9.3 L removed. Patient is having increased abdominal discomfort today. He has mild leukocytosis. His been afebrile. He denies any nausea or vomiting. He still continues to have a decreased appetite. Gastroenterology was contacted by dietitian yesterday concerned with his nutrition and lack of eating, past for possible PEG tube placement. Discussed with dietitian patient's daughter good surgical candidate due to decompensated cirrhosis of the liver with ascites. Discussed importance with patient to increase oral intake. Objective - Vital Signs Vital signs: Vital Signs Temp 98.3 F 05/08/21 08:00 Pulse 73 05/08/21 08:00 Resp 16 05/08/21 08:00 BP 105/65 05/08/21 08:00 Pulse Ox 96 05/08/21 08:00 Intake & Output 05/07/21 05/08/21 05/08/21 18:59 06:59 18:59 Output Total 500 400 Balance -500 -400 Weight 80 kg 79 kg Output: Urine 500 400 Other: Voiding Method Indwelling Catheter Indwelling Catheter # Bowel Movements 1 - Exam General appearance: The patient is alert, oriented, appears in no acute distress. HET: Head is normocephalic and atraumatic. Conjunctiva pink. Sclera anicteric. Neck: Supple without lymphadenopathy. Abdomen: Soft, use abdominal tenderness, mildly distended with bowel sounds. No guarding or rigidity. Extremities: Normal skin color and turgor. Pedal edema bilaterally. Skin: No rashes, no jaundice Neurological: No focal deficits. Alert and oriented 3. - Labs CBC & Chem 7: 05/08/21 06:29 05/08/21 06:29 Labs: Abnormal Lab Results - Last 24 Hours (Table) 05/07/21 05/08/21 Range/Units 07:09 06:29 WBC 13.45 H 14.20 H (4.50-10.00) X 10*3/uL RBC 3.37 L 3.47 L (4.40-5.60) X 10*6/uL Hgb 10.6 L 11.1 L (13.0-17.0) g/dL Hct 32.1 L 33.2 L (39.6-50.0) % RDW 14.9 H 14.8 H (11.5-14.5) % Immature Gran # 0.30 H (0.00-0.04) X 10*3/uL Neutrophils # 9.26 H (1.80-7.70) X 10*3/uL Monocytes # 1.12 H (0.20-1.00) X 10*3/uL Basophils # 0.13 H (0.00-0.10) X 10*3/uL Assessment and Plan (1) Ascites Narrative/Plan: 70-year-old male with a medical history significant for alcohol abuse who presented to the emergency department with complaints of abdominal pain. Patient was recently hospitalized earlier this month with aspiration pneumonia and gastroenterology had seen patient for altered mental status and elevated LFTs. LFTs were consistent with alcoholic liver disease. During his previous hospitalization he was noted to have mild ascites, he was started on Lasix 40 mg daily. He is currently on Lasix 40 mg daily and Aldactone [address] of the abdomen showed new cirrhosis with evidence of underlying portal venous hypertension is there is moderate to large amount of intraperitoneal ascites and mild splenomegaly. Likely reactive small to moderate left greater than right pleural effusions. Mild pelvic soft tissue anasarca noted. Findings are consistent with decompensated alcoholic cirrhosis of the liver. We'll plan on paracentesis. Patient is status post paracentesis, status post albumin. Repeat paracentesis as needed. Continue Lasix 40 mg daily and Aldactone 100 mg daily. Patient likely will need repeat paracentesis, at that time would recommend fluid culture studies Current Visit: Yes Status: Acute Code(s): R18.8 - OTHER ASCITES SNOMED Code(s): 530541164 (2) Cirrhosis of liver Narrative/Plan: Discussed with patient that he has decompensated cirrhosis of the liver due to alcoholism. He has a poor prognosis, he is not a candidate for any abdominal surgical intervention such as PEG tube placement for decreased appetite and nutritional status. Discussed with patient he will need outpatient paracentesis in follow-up with gastroenterology. Discussed with patient and he may want to consider palliative care due to poor prognosis, decompensated cirrhosis of the liver, and unwillingness to eat. Encourage patient to continue with Ensure, small frequent meals. Try to eat at least half of his meal at a time. Current Visit: Yes Status: Acute Code(s): K74.60 - UNSPECIFIED CIRRHOSIS OF LIVER SNOMED Code(s): 30642900 (3) Alcohol abuse Current Visit: No Status: Acute Code(s): F10.10 - ALCOHOL ABUSE, UNCOMPLICATED SNOMED Code(s): 63871752 (4) Hyponatremia Narrative/Plan: We'll put patient on fluid restriction of 1200 mL daily. Repeat BMP in the morning. Nephrology on consult Current Visit: Yes Status: Acute Code(s): E87.1 - HYPO-OSMOLALITY AND HYPONATREMIA SNOMED Code(s): 24842567 Plan: 1. Continue symptomatic and supportive care 2. Patient is status post paracentesis 3. Continue Lasix 40 mg daily, Aldactone to 100 mg daily 4. Low sodium diet 5. Alcohol abstinence 6. Keep on a 1200 mL fluid restriction 7. Repeat BMP the morning 8. Patient to follow-up with gastroenterology in 1 week, likely will need outpatient therapeutic paracentesis, fluid cultures as well 9. Continue with recommendations from nephrology 10. Discuss with patient possibility of palliative care Thank you for this consultation, we will continue to follow Dr. Pascual Roldan I agree with the dictator's note, documented as a scribe by Ronit Swan.
--- NOTE | 2021-05-08 15:29 | P.PN ---
Subjective Progress Note Date: 05/08/21 Neri Kurtz is a 70 yo M with PMH of alcoholism, recent admission 04/02-04/17 for alcohol withdrawal and community acquired pneumonia who presented to the ED from subacute rehab with generalized abdominal pain. He denies any nausea, vomiting or diarreha. States the pain has been going on at least a few days. He does have a hudson in place. He denies fever, chills, or sweats. On presentation vitals stable, afebrile SpO2 95% on 2 LPM O2, labs showing WBC 13k, lactic 2.6, urine bacteria present. CT abd/pelvis with ascites, portal hypertension and psoas hematoma. 05/04/2021 status post large volume paracentesis of 9.4 L drained on Tuesday. Cytology pending. Aldactone had been increased at that time. Continues on low sodium diet. Abdomen soft minimal discomfort but appears to be reaccumulating. Denies chest pain, palpitations or shortness of breath. Afebrile, labs pending. 05/05/2021 abdominal distention worsening, scheduled for repeat paracentesis. Renal function worsening, appetite remains fair. Cytology reporting scattered degenerated acute and chronic inflammatory cells and rare mesothelial cells, currently negative for diagnostic malignant cells .Repeat paracentesis yesterday with 9.3 L of serosanguineous fluid removed. Tolerated procedure well. 05/06/2021 Discharge placed on hold, a.m. labs returned reflecting sodium decreased to 124. Pro-calcitonin ordered, restrictions initiated. Recheck lites in a.m. potential nephrology consult if no improvement in sodium, as per GI. Afebrile, WBC 17.7. 05/07/2021 maintain on fluid restrictions, Lasix, Aldactone. Sodium 126 . BUN 52, creatinine up to 1.78. elevated pro-calcitonin, empiric SBP antibiotic Rocephin added to med regimen. Afebrile, minimal abdominal tenderness more so around paracentesis site. T bili up to 3.8, alk phos 725. Poor appetite, denies nausea vomiting. Chest x-ray pending. 05/08/21 Continues on 1200 MLS fluid restriction, Lasix, Aldactone .reports increased abdominal discomfort/ cramping. Denies nausea or vomiting. Mild leukocytosis. Afebrile, maintained on Rocephin for her SBP prophylaxis.Appetite remains poor. PEG tube recommended/suggested per dietitian ,but secondary to his decompensated liver cirrhosis, ascites patient is not a surgical candidate--refer to GI note. CODE STATUS changed to no code per patient's requests. Palliative care/palliative care measures also discussed. Patient has been cleared by nephrology for discharge. Objective - Vital Signs Vital signs: Vital Signs Temp 97.7 F 05/08/21 10:46 Pulse 100 05/08/21 12:07 Resp 16 05/08/21 10:46 BP 115/78 05/08/21 10:46 Pulse Ox 95 05/08/21 10:46 Intake & Output 05/07/21 05/08/21 05/08/21 18:59 06:59 18:59 Output Total 500 400 Balance -500 -400 Weight 80 kg 79 kg Output: Urine 500 400 Other: Voiding Method Indwelling Catheter Indwelling Catheter Indwelling Catheter # Bowel Movements 1 - Exam General: Sitting up in bed, NAD, weak. Vitals reviewed Eyes: PERRL, EOMI, conjunctiva normal HENT: normocephalic, mucus membranes moist Neck: supple, no JVD Lungs: normal respiratory effort, no wheezes or rales CV: Regular rate and rhythm, no murmur. Peripheral pulses 2+ Abdomen: soft, distended, diffuse tenderness, no guarding, positive bowel sounds Skin: warm and dry. Neuro: Alert and oriented 3, mood and affect normal - Labs CBC & Chem 7: 05/08/21 06:29 05/08/21 06:29 Labs: Abnormal Lab Results - Last 24 Hours (Table) 05/08/21 05/08/21 Range/Units 06:29 06:29 WBC 14.20 H (4.50-10.00) X 10*3/uL RBC 3.47 L (4.40-5.60) X 10*6/uL Hgb 11.1 L (13.0-17.0) g/dL Hct 33.2 L (39.6-50.0) % RDW 14.8 H (11.5-14.5) % Immature Gran # 0.30 H (0.00-0.04) X 10*3/uL Neutrophils # 9.26 H (1.80-7.70) X 10*3/uL Monocytes # 1.12 H (0.20-1.00) X 10*3/uL Basophils # 0.13 H (0.00-0.10) X 10*3/uL Sodium 131 L (135-145) mmol/L BUN 50.0 H (9.0-27.0) mg/dL Creatinine 1.8 H (0.6-1.5) mg/dL Est GFR (CKD-EPI)AfAm 43.2 L (60.0-200.0) Est GFR (CKD-EPI)NonAf 37.3 L (60.0-200.0) BUN/Creatinine Ratio 27.78 H (12.00-20.00) Ratio Calcium 8.4 L (8.7-10.3) mg/dL Total Bilirubin 2.9 H (0.2-1.2) mg/dL AST 48 H (14-35) U/L Alkaline Phosphatase 790 H (41-126) U/L Total Protein 5.0 L (6.2-8.2) g/dL Albumin 2.70 L (3.80-4.90) g/dL Albumin/Globulin Ratio 1.17 L (1.60-3.17) g/dL Assessment and Plan Assessment: Alcoholic hepatitis with ascites, status post paracentesis with 9.4 L drained and 9.3 L drained. Decompensated liver cirrhosis Hyponatremia, hypovolemic secondary to large volume paracentesis Acute renal failure secondary to large volume paracentesis Acute UTI with Odette glabrata Chronic renal failure stage IIIa secondary to hepatorenal syndrome Psoas hematoma,Surgery reviewed CT reporting hematoma fairly small with no surgical intervention recommended. History of alcohol abuse No code, no CPR, no intubation Plan: Continue on current medication regime ,monitoring and symptomatic treatmen t. Maintain fluid restrictions, Lasix and Aldactone. Maintain SBP prophylaxis. Cleared by nephrology for discharge. Discussed with GI, with no repeat paracentesis at this time/recommend follow-up next week when outpatient therapeutic paracentesis will be arranged. Discharge planning in place for return to subacute rehab pending authorization. At discharge continue SBP prophylaxis. The impression and plan of care has been dictated as directed. : I performed a history and examination of this patient, discussed the same with the dictator. I agree with the dictator's note ,documented as a scribe. Any additional findings or plans will be noted.
[2021-05-08] MEDS: ACETAMINOPHEN TAB 325 MG TAB PO PRN (19:36)
[2021-05-09 04:46] LABS: Appearance,Urine Clear (Clear); Bilirubin,Urine Negative (Negative); Blood,Urine Moderate (Negative); Budding Yeast,Urine Few /hpf; Calcium Oxalate Crystals,Urine Occasional /hpf; Color,Urine Yellow; Glucose,Urine (UA) Negative (Negative); Ketones,Urine Negative (Negative); Leukocyte Esterase,Urine Moderate (Negative); Nitrite,Urine Negative (Negative); PH, Urine 5.5 (5.0-8.0); Protein,Urine Negative (Negative); RBC,Urine 44 /hpf (0-5); Specific Gravity,Urine 1.013 (1.001-1.035); WBC,Urine 16 /hpf (0-5)
[2021-05-09] MEDS: ACETAMINOPHEN TAB 325 MG TAB PO PRN ×2 (05:55→13:51)
[2021-05-09 06:02] LABS: Basophils # (A) 0.2 k/uL (0-0.2); Basophils % (A) 1 %; Eosinophils # (A) 0.1 k/uL (0-0.7); Eosinophils % (A) 1 %; HCT 36.5 % (39.0-53.0); Lymphocytes # (A) 3.3 k/uL (1.0-4.8); Lymphocytes % (A) 21 %; MCH 33.4 pg (25.0-35.0); MCHC 32.9 g/dL (31.0-37.0); MCV 101.6 fL (80.0-100.0); Macrocytosis Slight; Mean Platelet Volume 8.1; Monocytes # (A) 0.9 k/uL (0-1.0); Monocytes % (A) 6 %; Neutrophils # (A) 11.1 k/uL (1.3-7.7); Neutrophils % (A) 69 %; Platelet Count 393 k/uL (150-450); RBC 3.59 m/uL (4.30-5.90); RDW 14.6 % (11.5-15.5)
[2021-05-09 06:14] LABS: ALT 29 U/L (4-49); AST 47 U/L (17-59); African American GFR (CKD) 46 (>60 ml/min/1.73 sqM); Albumin 2.5 g/dL (3.5-5.0); Albumin/Globulin Ratio 0.9; Alkaline Phosphatase 739 U/L (38-126); Anion Gap 7 mmol/L; Blood Urea Nitrogen 51 mg/dL (9-20); Calcium 8.9 mg/dL (8.4-10.2); Carbon Dioxide 25 mmol/L (22-30); Chloride 96 mmol/L (98-107); Globulin 2.8 g/dL; Glucose 99 mg/dL (74-99); Magnesium 1.6 mg/dL (1.6-2.3); Non-African American GFR(CKD) 39 (>60 ml/min/1.73 sqM); Potassium 4.7 mmol/L (3.5-5.1); Sodium 128 mmol/L (137-145); Total Bilirubin 2.7 mg/dL (0.2-1.3); Total Protein 5.3 g/dL (6.3-8.2)
[2021-05-09] MEDS: FUROSEMIDE 40 MG TAB PO SCH (08:18)
[2021-05-09] MEDS: SODIUM BICARBONATE TAB 650 MG TAB PO SCH ×2 (08:19→19:58)
[2021-05-09] MEDS: FLUCONAZOLE 150 MG TAB PO SCH (08:19)
[2021-05-09] MEDS: PANTOPRAZOLE 40 MG TABLET PO SCH (08:19)
[2021-05-09] MEDS: FOLIC ACID 1 MG TAB PO SCH (08:19)
[2021-05-09] MEDS: SPIRONOLACTONE 25 MG TAB PO SCH (08:19)
--- NOTE | 2021-05-09 08:49 | P.PN ---
Subjective Patient is seen in follow-up for acute kidney injury and hyponatremia. Renal function stable. Sodium level 128 today. Oral intake poor. Blood pressure stable. Vital signs are stable. General: The patient appeared well nourished and normally developed. HEENT: Head exam is unremarkable. LUNGS: Breath sounds decreased. HEART: Rate and Rhythm are regular. ABDOMEN: Soft, distention noted. EXTREMITITES: 1+ edema. Objective - Vital Signs Vital signs: Vital Signs Temp 97.4 F L 05/09/21 07:40 Pulse 96 05/09/21 07:40 Resp 20 05/09/21 07:40 BP 114/75 05/09/21 07:40 Pulse Ox 98 05/09/21 07:40 Intake & Output 05/08/21 05/09/21 05/09/21 18:59 06:59 18:59 Output Total 1100 150 Balance -1100 -150 Weight 79.5 kg Output: Urine 1100 150 Other: Voiding Method Indwelling Catheter Indwelling Catheter # Bowel Movements 1 - Labs CBC & Chem 7: 05/09/21 05:23 05/09/21 05:23 Labs: Abnormal Lab Results - Last 24 Hours (Table) 05/08/21 05/08/21 05/09/21 Range/Units 06:29 06:29 04:00 WBC 14.20 H (4.50-10.00) X 10*3/uL RBC 3.47 L (4.40-5.60) X 10*6/uL Hgb 11.1 L (13.0-17.0) g/dL Hct 33.2 L (39.6-50.0) % MCV (80.0-100.0) fL RDW 14.8 H (11.5-14.5) % Immature Gran # 0.30 H (0.00-0.04) X 10*3/uL Neutrophils # 9.26 H (1.80-7.70) X 10*3/uL Monocytes # 1.12 H (0.20-1.00) X 10*3/uL Basophils # 0.13 H (0.00-0.10) X 10*3/uL Sodium 131 L (135-145) mmol/L Chloride (98-107) mmol/L BUN 50.0 H (9.0-27.0) mg/dL Creatinine 1.8 H (0.6-1.5) mg/dL Est GFR (CKD-EPI)AfAm 43.2 L (60.0-200.0) Est GFR (CKD-EPI)NonAf 37.3 L (60.0-200.0) BUN/Creatinine Ratio 27.78 H (12.00-20.00) Ratio Calcium 8.4 L (8.7-10.3) mg/dL Total Bilirubin 2.9 H (0.2-1.2) mg/dL AST 48 H (14-35) U/L Alkaline Phosphatase 790 H (41-126) U/L Total Protein 5.0 L (6.2-8.2) g/dL Albumin 2.70 L (3.80-4.90) g/dL Albumin/Globulin Ratio 1.17 L (1.60-3.17) g/dL Urine Blood Moderate H (Negative) Ur Leukocyte Esterase Moderate H (Negative) Urine RBC 44 H (0-5) /hpf Urine WBC 16 H (0-5) /hpf Calcium Oxalate Crystal Occasional H (None) /hpf Urine Yeast (Budding) Few H (None) /hpf 05/09/21 05/09/21 Range/Units 05:23 05:23 WBC 16.0 H (4.50-10.00) X 10*3/uL RBC 3.59 L (4.40-5.60) X 10*6/uL Hgb 12.0 L (13.0-17.0) g/dL Hct 36.5 L (39.6-50.0) % MCV 101.6 H (80.0-100.0) fL RDW (11.5-14.5) % Immature Gran # (0.00-0.04) X 10*3/uL Neutrophils # 11.1 H (1.80-7.70) X 10*3/uL Monocytes # (0.20-1.00) X 10*3/uL Basophils # (0.00-0.10) X 10*3/uL Sodium 128 L (135-145) mmol/L Chloride 96 L (98-107) mmol/L BUN 51 H (9.0-27.0) mg/dL Creatinine 1.72 H (0.6-1.5) mg/dL Est GFR (CKD-EPI)AfAm (60.0-200.0) Est GFR (CKD-EPI)NonAf (60.0-200.0) BUN/Creatinine Ratio (12.00-20.00) Ratio Calcium (8.7-10.3) mg/dL Total Bilirubin 2.7 H (0.2-1.2) mg/dL AST (14-35) U/L Alkaline Phosphatase 739 H (41-126) U/L Total Protein 5.3 L (6.2-8.2) g/dL Albumin 2.5 L (3.80-4.90) g/dL Albumin/Globulin Ratio (1.60-3.17) g/dL Urine Blood (Negative) Ur Leukocyte Esterase (Negative) Urine RBC (0-5) /hpf Urine WBC (0-5) /hpf Calcium Oxalate Crystal (None) /hpf Urine Yeast (Budding) (None) /hpf Assessment and Plan Plan: Assessment: 1. Hypovolemic hyponatremia post large volume paracentesis. Sodium level 128 today. 2. Chronic kidney disease stage IIIA with baseline creatinine 1.1-1.3 secondary to hepatorenal syndrome. UPC 0.38. Repeat UA shows no proteinuria. 3. Acute kidney injury secondary to ATN from large volume paracentesis. Creatinine stable at 1.72 today. 4. Alcohol induced liver cirrhosis. 5. Mild left-sided hydronephrosis noted on CAT scan which appears to be chronic. Patient will need to see urology outpatient. Plan: Maintain Lasix and Aldactone. Will increase dose of spironolactone if potassium remains stable. 1200 mL fluid restriction. Encourage oral intake, particularly protein. Low salt diet. Status post IV albumin May 06. Avoid nephrotoxins. Repeat labs in the morning. Overall prognosis guarded.
--- NOTE | 2021-05-09 11:15 | US ---
EXAMINATION TYPE: US abdomen limited DATE OF EXAM: 05/09/2021 COMPARISON: Previous ultrasound age [birth year] CLINICAL HISTORY: ascites. Exam done portable. Abdominal ascites is noted. Limited exam. IMPRESSION: There is moderate amount of ascites
--- NOTE | 2021-05-09 11:43 | PN ---
PROGRESS NOTE DATE OF SERVICE: 05/09/2021. HISTORY: The patient is a 70-year-old pleasant white male admitted to hospital with alcoholic cirrhosis with portal hypertension, ascites requiring large-volume paracentesis on 2 different occasions in the last 6 days. He started developing abdominal pain yesterday and he was started on broad-spectrum antibiotics with Rocephin for possibility of SBP. He is doing better today. He still has some abdominal pain that comes and goes. He denies any nausea or vomiting. Oral intake has been poor. He remains mostly in the bed. PHYSICAL EXAMINATION: Appears comfortable. Vital signs are stable. Blood pressure 148/75, pulse rate 96, temperature 97.4 HEENT examination unremarkable sclerae anicteric neck no JVD or lymph node enlargement. Chest is clear to auscultation. Heart regular rate and rhythm. Abdomen was soft, it is slightly distended. There was very minimal tenderness diffusely all over the abdomen. There was some free fluid noted. Extremities no pedal edema. Neuro alert and oriented x3. No focal deficits. LABS: WBC 16, hemoglobin 12, platelets 393. BUN is 51, creatinine 1.72, T-bilirubin is 2.7, alkaline phosphatase is 739, AST and ALT are within normal limits. Ultrasound of the abdomen done 2 days ago showed moderate amount of ascites, but no evidence of biliary ductal dilation. IMPRESSION: 1. Ascites, diffuse abdominal pain, rule out SBP. Patient on Rocephin started yesterday. Clinically doing better but still has some leukocytosis. 2. Cirrhosis of the liver with portal hypertension and ascites status post large- volume paracentesis 2 days ago and 9 L of fluid was removed. 3. Elevated alkaline phosphatase and bilirubin, but CT scan at the time of admission hospital did not show any evidence of biliary ductal dilation. 4. Acute kidney injury with elevated BUN and creatinine at 51 and 1.7 respectively. Nephrology following the patient closely. 5. Hyponatremia. RECOMMENDATIONS: 1. Continue with current dose of Lasix and Aldactone at 40 mg and 50 mg respectively. 2. Low-salt diet. 3. Continue broad-spectrum antibiotics. 4. Paracentesis as needed based on the symptoms. 5. Encourage oral intake. 6. Repeat labs in the morning. 7. Will follow with you. MMODL / IJN: [id number] /
--- NOTE | 2021-05-09 15:54 | P.PN ---
Subjective This is a pleasant 70 years old male with history of alcoholic abuse for more than 50 years, hypertension, COPD. He was recently admitted to the hospital with elevated liver enzymes and altered mental status. Presents with abdominal pain and mental confusion although he was alert and oriented [address] of the abdomen on admission showing liver cirrhosis, new diagnosis with portal venous hypertension and moderate amount of ascites and splenomegaly. Also he has bilateral nonobstructing renal calculi and right iliopsoas hematoma. On admission he was mildly hyponatremic around 133 with acute kidney injury and creatinine 1.3-1.6. Today his more awake and alert however has not eaten much because of low appetite, history of have mild right-sided abdominal pain and tenderness.He is status post paracentesis and output mean on 05/06 however repeat ultrasound from today showing moderate amount of ascites, therefore we ordered consult to IR for another paracentesis and was sent for culture and WBC. Patient also reports some difficulty swallowing so we ordered a swallow evaluation He has chronic leukocytosis for the last 2 months, urine culture on admission showed fungal infection and he is currently on Diflucan. His urinalysis still showed infection, we'll also repeat urine culture Currently covered with ceftriaxone. We might consider increasing the dose 1 mg up to 20 mg after the paracentesis. Nephrology following the case for his kidney injury and hyponatremia, sodium today is 128 and creatinine 1.7, baseline is 1.2-1.4. He is mildly hypoxic and tachypneic. We will repeat chest x-ray tomorrow 2consult on and is elevated at 0.57, repeat pro-calcitonin. Also he has mild leukocytosis of 16 K, hemoglobin is 12, sodium 128. Surgery team signed off for his right psoas hematoma. He is also on oral Lasix and Aldactone 50 mg daily and Lasix 40 mg by mouth daily. Also he is on fluid restriction 1200 mL per day Objective - Vital Signs Vital signs: Vital Signs Temp 97.4 F L 05/09/21 07:40 Pulse 96 05/09/21 07:40 Resp 16 05/09/21 09:27 BP 114/75 05/09/21 07:40 Pulse Ox 98 05/09/21 07:40 Intake & Output 05/08/21 05/09/21 05/09/21 18:59 06:59 18:59 Intake Total 240 Output Total 1100 150 Balance -1100 -150 240 Weight 79.5 kg Intake: Oral 240 Output: Urine 1100 150 Other: Voiding Method Indwelling Catheter Indwelling Catheter Indwelling Catheter # Bowel Movements 1 - Exam GENERAL: The patient is alert and oriented x3, not in any acute distress. Well developed, well nourished. HEENT: Pupils are round and equally reacting to light. EOMI. No scleral icterus. No conjunctival pallor. Normocephalic, atraumatic. No pharyngeal erythema. No thyromegaly. CARDIOVASCULAR: S1 and S2 present. No murmurs, rubs, or gallops. PULMONARY: Chest is clear to auscultation, no wheezing or crackles. -ABDOMEN: Soft, mild right side abdominal tenderness with no rebound tenderness or guarding, nondistended, normoactive bowel sounds. No palpable organomegaly. MUSCULOSKELETAL: No joint swelling or deformity. -EXTREMITIES: No cyanosis, clubbing, . Bilateral pitting pedal edema. NEUROLOGICAL: Gross neurological examination did not reveal any focal deficits. SKIN: No rashes. no petechiae. - Labs CBC & Chem 7: 05/09/21 05:23 05/09/21 05:23 Labs: Abnormal Lab Results - Last 24 Hours (Table) 05/09/21 05/09/21 05/09/21 Range/Units 04:00 05:23 05:23 WBC 16.0 H (3.8-10.6) k/uL RBC 3.59 L (4.30-5.90) m/uL Hgb 12.0 L (13.0-17.5) gm/dL Hct 36.5 L (39.0-53.0) % MCV 101.6 H (80.0-100.0) fL Neutrophils # 11.1 H (1.3-7.7) k/uL Sodium 128 L (137-145) mmol/L Chloride 96 L (98-107) mmol/L BUN 51 H (9-20) mg/dL Creatinine 1.72 H (0.66-1.25) mg/dL Total Bilirubin 2.7 H (0.2-1.3) mg/dL Alkaline Phosphatase 739 H (38-126) U/L Total Protein 5.3 L (6.3-8.2) g/dL Albumin 2.5 L (3.5-5.0) g/dL Urine Blood Moderate H (Negative) Ur Leukocyte Esterase Moderate H (Negative) Urine RBC 44 H (0-5) /hpf Urine WBC 16 H (0-5) /hpf Calcium Oxalate Crystal Occasional H (None) /hpf Urine Yeast (Budding) Few H (None) /hpf Assessment and Plan Assessment: Abdominal pain and tenderness, rule out spontaneous bacterial peritonitis. Decompensated liver cirrhosis, new diagnosis with ascites and portal hypertension. With Lasix and Aldactone and repeat paracentesis Acute kidney injury versus Chronic kidney disease stage III Hypovolemic hyponatremia Psychiatric hematoma, and surgery team signed off Chronic leukocytosis for the last 2 months Chronic mild hydronephrosis with bilateral nonobstructive renal calculus UTI secondary to elisha Plan: This is a pleasant 70 years old male who presents with a new cirrhosis and inability to eat because of low appetite and abdominal pain Repeat paracentesis and send for culture Check chest x-ray tomorrow Follow-up renal culture results Chest x-ray and check repeat pro-calcitonin Nephrology on the case for his acute kidney injury and hyponatremia. Add thiamine. No need for Ativan as needed with no withdrawal Labs and medication were reviewed.. Continue same treatment. Continue with symptomatic treatment. Resume home medication. Monitor lytes and vitals. DVT and GI prophylaxis. Further recommendationsas per clinical course of the patient DVT prophylaxis: Subcutaneous heparin GI Prophylaxis: Ppi PT/OT: Subacute rehab, social services analyst consulted Prognosis is guarded
[2021-05-09] MEDS: THIAMINE 100 MG TAB PO SCH (17:08)
[2021-05-10 05:34] LABS: African American GFR (CKD) 47 (>60 ml/min/1.73 sqM); Anion Gap 8 mmol/L; Blood Urea Nitrogen 53 mg/dL (9-20); Calcium 8.8 mg/dL (8.4-10.2); Carbon Dioxide 24 mmol/L (22-30); Chloride 97 mmol/L (98-107); Glucose 90 mg/dL (74-99); Magnesium 1.6 mg/dL (1.6-2.3); Non-African American GFR(CKD) 41 (>60 ml/min/1.73 sqM); Sodium 129 mmol/L (137-145)
--- NOTE | 2021-05-10 07:30 | XR ---
EXAMINATION TYPE: XR chest 1V DATE OF EXAM: 05/10/2021 COMPARISON: Chest x-ray 05/07/2021 HISTORY: Shortness of breath TECHNIQUE: Single frontal view of the chest is obtained. FINDINGS: Patient is rotated. Patchy subsegmental atelectatic changes are again noted, the exam is e xpiratory. Cardiomediastinal silhouette is unchanged accounting for differences in technique. No evid ent pneumothorax or pleural effusion. IMPRESSION: Expiratory rotated exam. Probable atelectasis, correlate to exclude pneumonia, basilar e ffusions
[2021-05-10] MEDS: SPIRONOLACTONE 25 MG TAB PO SCH (08:59)
[2021-05-10] MEDS: SODIUM BICARBONATE TAB 650 MG TAB PO SCH ×2 (08:59→21:06)
[2021-05-10] MEDS: PANTOPRAZOLE 40 MG TABLET PO SCH (08:59)
[2021-05-10] MEDS: FUROSEMIDE 40 MG TAB PO SCH (08:59)
[2021-05-10] MEDS: FLUCONAZOLE 150 MG TAB PO SCH (08:59)
[2021-05-10] MEDS: FOLIC ACID 1 MG TAB PO SCH (08:59)
[2021-05-10] MEDS: THIAMINE 100 MG TAB PO SCH (08:59)
--- NOTE | 2021-05-10 09:09 | P.PN ---
Subjective Patient is seen in follow-up for acute kidney injury and hyponatremia. Renal function stable. Sodium level 129 today. Oral intake poor. Blood pressure stable. No changes overnight. Vital signs are stable. General: The patient appeared well nourished and normally developed. HEENT: Head exam is unremarkable. LUNGS: Breath sounds decreased. HEART: Rate and Rhythm are regular. ABDOMEN: Soft, distention noted. EXTREMITITES: 1+ edema. Objective - Vital Signs Vital signs: Vital Signs Temp 98.3 F 05/10/21 07:52 Pulse 92 05/10/21 07:52 Resp 17 05/10/21 07:52 BP 127/88 05/10/21 07:52 Pulse Ox 98 05/10/21 07:52 Intake & Output 05/09/21 05/10/21 05/10/21 18:59 06:59 18:59 Intake Total 240 Output Total 300 500 Balance -60 -500 Intake: Oral 240 Output: Urine 300 500 Other: Voiding Method Indwelling Catheter Indwelling Catheter # Bowel Movements 1 1 - Labs CBC & Chem 7: 05/09/21 05:23 05/10/21 04:48 Labs: Abnormal Lab Results - Last 24 Hours (Table) 05/09/21 05/10/21 Range/Units 05:23 04:48 Sodium 129 L (137-145) mmol/L Chloride 97 L (98-107) mmol/L BUN 53 H (9-20) mg/dL Creatinine 1.67 H (0.66-1.25) mg/dL Procalcitonin 0.48 H (0.02-0.09) ng/mL Microbiology - Last 24 Hours (Table) 05/09/21 16:10 Urine Culture - Preliminary Urine,Clean Catch Assessment and Plan Plan: Assessment: 1. Hypovolemic hyponatremia post large volume paracentesis. Sodium level 129 today. 2. Chronic kidney disease stage IIIA with baseline creatinine 1.1-1.3 secondary to hepatorenal syndrome. UPC 0.38. Repeat UA shows no proteinuria. 3. Acute kidney injury secondary to ATN from large volume paracentesis. Crea tinine stable at 1.67 today. 4. Alcohol induced liver cirrhosis. 5. Mild left-sided hydronephrosis noted on CAT scan which appears to be chronic. Patient will need to see urology outpatient. 6. Hypomagnesemia from poor intake and diuretics. Plan: Maintain Lasix and Aldactone. Will increase dose of spironolactone if potassium remains stable - 5.0 today. 1200 mL fluid restriction. Encourage oral intake, particularly protein. Low salt diet. Status post IV albumin May 06. Avoid nephrotoxins. Replace magnesium. Repeat labs in the morning. Overall prognosis guarded.
[2021-05-10] MEDS: MAGNESIUM SULFATE-D5W PMX 1 GM in DEXTROSE/WATER 1 100ML.BAG IVPB SCH ×2 (10:07→14:11)
--- NOTE | 2021-05-10 10:52 | P.PN ---
Subjective This is a pleasant 70 years old male with history of alcoholic abuse for more than 50 years, hypertension, COPD. He was recently admitted to the hospital with elevated liver enzymes and altered mental status. Presents with abdominal pain and mental confusion although he was alert and oriented [address] of the abdomen on admission showing liver cirrhosis, new diagnosis with portal venous hypertension and moderate amount of ascites and splenomegaly. Also he has bilateral nonobstructing renal calculi and right iliopsoas hematoma. On admission he was mildly hyponatremic around 133 with acute kidney injury and creatinine 1.3-1.6. Today his more awake and alert however has not eaten much because of low appetite, history of have mild right-sided abdominal pain and tenderness.He is status post paracentesis and output mean on 05/06 however repeat ultrasound from today showing moderate amount of ascites, therefore we ordered consult to IR for another paracentesis and was sent for culture and WBC. Patient also reports some difficulty swallowing so we ordered a swallow evaluation He has chronic leukocytosis for the last 2 months, urine culture on admission showed fungal infection and he is currently on Diflucan. His urinalysis still showed infection, we'll also repeat urine culture Currently covered with ceftriaxone. We might consider increasing the dose 1 mg up to 20 mg after the paracentesis. Nephrology following the case for his kidney injury and hyponatremia, sodium today is 128 and creatinine 1.7, baseline is 1.2-1.4. He is mildly hypoxic and tachypneic. We will repeat chest x-ray tomorrow 2consult on and is elevated at 0.57, repeat pro-calcitonin. Also he has mild leukocytosis of 16 K, hemoglobin is 12, sodium 128. Surgery team signed off for his right psoas hematoma. He is also on oral Lasix and Aldactone 50 mg daily and Lasix 40 mg by mouth daily. Also he is on fluid restriction 1200 mL per day 05/10/2021 Patient breathing is slightly better today compared to yesterday, his list tachypneic. Is lying in bed most of the time, not in distress, he does not complain from anything specifically. He is saturating in 90s on 2 L oxygen via nasal cannula. Patient is not eating because he says his been choking whenever he tries to eat Sodium today is a stable at 129, creatinine is slightly less at 1.6. And his pro-calcitonin is coming down to 0.57 down to 0.47. PT urine analysis is still suspicious for infection, deep urine culture is negative. X-ray done today showing bibasilar atelectasis, rotated exam cannot exclude pneumonia. He remains on ceftriaxone and Diflucan added for his possible Odette UTI. Nephrology team on the case and recommended keeping Aldactone and diuretics now while monitoring sodium. We will repeat chest x-ray tomorrow morning, 2 views, especially with his significant choking with eating. His his chest x-ray is worse or evidence of aspiration then we recommend change in antibiotics to cover gram-negative bacilli like Zosyn Paracentesis ordered for his recurrent abdominal ascites however could not be done over the weekend, possible done tomorrow, resected both culture is ordered GI service also on the case Repeat labs tomorrow morning including CBC, BMP, liver function tests and magnesium. We will consult infectious disease team as patient is slowly responding to treatment Objective - Vital Signs Vital signs: Vital Signs Temp 98.3 F 05/10/21 07:52 Pulse 92 05/10/21 07:52 Resp 17 05/10/21 07:52 BP 127/88 05/10/21 07:52 Pulse Ox 98 05/10/21 07:52 Intake & Output 05/09/21 05/10/21 05/10/21 18:59 06:59 18:59 Intake Total 240 Output Total 300 500 Balance -60 -500 Intake: Oral 240 Output: Urine 300 500 Other: Voiding Method Indwelling Catheter Indwelling Catheter # Bowel Movements 1 1 - Exam GENERAL: The patient is alert and oriented x3, not in any acute distress. Well developed, well nourished. HEENT: Pupils are round and equally reacting to light. EOMI. No scleral icterus. No conjunctival pallor. Normocephalic, atraumatic. No pharyngeal erythema. No th yromegaly. CARDIOVASCULAR: S1 and S2 present. No murmurs, rubs, or gallops. PULMONARY: Chest is clear to auscultation, no wheezing or crackles. -ABDOMEN: Soft, mild right side abdominal tenderness with no rebound tenderness or guarding, nondistended, normoactive bowel sounds. No palpable organomegaly. MUSCULOSKELETAL: No joint swelling or deformity. -EXTREMITIES: No cyanosis, clubbing, . Bilateral pitting pedal edema. NEUROLOGICAL: Gross neurological examination did not reveal any focal deficits. SKIN: No rashes. no petechiae. - Labs CBC & Chem 7: 05/09/21 05:23 05/10/21 04:48 Labs: Abnormal Lab Results - Last 24 Hours (Table) 05/09/21 05/10/21 Range/Units 05:23 04:48 Sodium 129 L (137-145) mmol/L Chloride 97 L (98-107) mmol/L BUN 53 H (9-20) mg/dL Creatinine 1.67 H (0.66-1.25) mg/dL Procalcitonin 0.48 H (0.02-0.09) ng/mL Microbiology - Last 24 Hours (Table) 05/09/21 16:10 Urine Culture - Preliminary Urine,Clean Catch Assessment and Plan Assessment: Abdominal pain and tenderness, rule out spontaneous bacterial peritonitis. Decompensated liver cirrhosis, new diagnosis with ascites and portal hypertension. With Lasix and Aldactone and repeat paracentesis Patient is not eating secondary to choking. Rule out aspiration pneumonia Acute kidney injury versus Chronic kidney disease stage III Hypovolemic hyponatremia Psychiatric hematoma, and surgery team signed off Chronic leukocytosis for the last 2 months Chronic mild hydronephrosis with bilateral nonobstructive renal calculus UTI secondary to odette Plan: This is a pleasant 70 years old male who presents with a new cirrhosis and inability to eat because of low appetite and abdominal pain Repeat paracentesis and send for culture, could be done tomorrow Check chest x-ray tomorrow. Two-view Follow-up urine culture results Increase ceftriaxone to 1 g twice a day. Consult infectious disease team Nephrology on the case for his acute kidney injury and hyponatremia. Swallow evaluation tomorrow morning GI service on the case Labs and medication were reviewed.. Continue same treatment. Continue with symptomatic treatment. Resume home medication. Monitor lytes and vitals. DVT and GI prophylaxis. Further recommendationsas per clinical course of the patient DVT prophylaxis: Subcutaneous heparin GI Prophylaxis: Ppi PT/OT: Subacute rehab, social work assistant consulted Prognosis is guarded Dr. Pro group will resume the care of the patient tomorrow
--- NOTE | 2021-05-10 11:04 | PN ---
PROGRESS NOTE DATE OF DICTATION: 05/10/2021 Patient is a 70-year-old pleasant white male admitted to the hospital with alcoholic liver disease with gradual decompensation, recurrent ascites, acute kidney injury and severe hyponatremia. He was started on Rocephin for possible SBP two days ago. He underwent large-volume paracentesis x2 during this hospitalization. This morning he is feeling much better. Abdomen is slightly distended. He reports no nausea, vomiting. He continues to remain in the bed with very minimal physical activity. No fever, chills or night sweats. PHYSICAL EXAMINATION: He appears comfortable. VITAL SIGNS: Stable. Blood pressure 127/88, pulse rate 92, temperature 98.3. HEENT EXAMINATION: Unremarkable. Conjunctivae pink. Sclerae anicteric. Oral cavity no lesions. NECK: No JVD. No lymph node enlargement. CHEST: Clear to auscultation. HEART: Regular rate and rhythm. ABDOMEN: Soft. There was fluid thrill, shifting dullness noted. EXTREMITIES: No pedal edema. NEURO: He is alert and oriented to name and place, not to time. LABS: Labs from today: sodium 129, BUN 53, creatinine 1.67. Rest of the labs are pending. IMPRESSION: 1. Alcoholic cirrhosis with gradual decompensation with refractory ascites, presently on diuretics and needing large-volume paracentesis almost on a weekly basis. 2. Possible SBP, on broad-spectrum antibiotics, and abdominal pain has subsided. 3. Acute kidney injury. Nephrology following the patient closely. 4. Leukocytosis, gradually improving. 5. Hyponatremia related to advanced liver disease. 6. Elevated liver function tests and mild jaundice. RECOMMENDATIONS: 1. Continue with the current dose of diuretics. 2. Continue Rocephin for possible SBP. 3. Monitor labs closely. 4. Low-salt diet. 5. Consider paracentesis on a weekly basis for palliative purposes. Thank you for this consultation. No GI Service available from tomorrow. We will sign off at this time. MMODL / IJN: [id number] /
[2021-05-10] MEDS: ACETAMINOPHEN TAB 325 MG TAB PO PRN ×2 (14:09→21:08)
--- NOTE | 2021-05-10 23:43 | P.CONS ---
History of Present Illness - Reason for Consult Consult date: 05/10/21 UTI/Rule out aspiration Requesting physician: Tashi E Sheet - Chief Complaint abd distension x days - History of Present Illness History of present illness : Patient is 70-year-old male admitted to hospital with alcoholic liver disease recurrent ascites and acute kidney injury patient did underwent a large-volume paracentesis done during this admission in this patient who did not have any fever during this hospital stay patient did have a elevated white count which was up to 17,000 yesterday kidney function has improved IS elevated urine has been mildly positive paracentesis fluid shows only 6 WBC paracentesis cultures have been negative patient did have a chest x- ray which shows probable atelectasis correlate to exclude pneumonia infectious disease was consulted today after the patient has been in the hospital for 11 days with concern for rule out aspiration pneumonia and a UTI patient is currently breathing comfortably on room air patient denies having any chest pain shortness of breath or cough no nausea no vomiting of the leg of abdominal dist ention no diarrhea and no urinary symptoms Review of system: CONSTITUTIONAL: Positive for weakness denies fever. EYES: No complaint. ENT: No complaint. RESPIRATORY: No complaint. CARDIOVASCULAR: No complaint. GENITOURINARY: No complaint. GASTROINTESTINAL: As per history of present illness. MUSCULOSKELETAL: No complaint. INTEGUMENTARY: No complaint. PSYCHOLOGIC: No complaint. ENDOCRINE: No complaint. NEUROLOGIC: No complaint. Past medical history : Reviewed, documented below Past surgical history : Reviewed, documented below Social history: Reviewed, documented below Medications: Reviewed, as documented below GENERAL DESCRIPTION: Elderly male lying in bed, no distress. No tachypnea or accessory muscle of respiration use. HEENT: Shows Pallor , no scleral icterus. Oral mucous membrane is dry. NECK: Trachea central, no thyromegaly. LUNGS: Unlabored breathing. Clear to auscultation anteriorly. No wheeze or crackle. HEART: S1, S2, regular rate and rhythm. ABDOMEN: Soft, distention but no tenderness , guarding or rigidity EXTREMITIES: No edema of feet. SKIN: No rash, no masses palpable. NEUROLOGICAL: The patient is awake, alert, oriented x3, mood and affect normal. LABS AND RADIOLOGY: Reviewed results see below Assessment : 1-patient is a 70-year-old male admitted to hospital with alcoholic liver disease and cirrhosis in this patient who is status post large- volume paracentesis x2 and culture has been negative patient with no fever clinical doubt spontaneous bacterial peritonitis 2-patient with abnormal x-ray more likely atelectasis clinically not behaving as pneumonia 3-positive UA but no urinary symptoms possible asymptomatic bacteriuria Plan: 1-antibiotics can be safely discontinued 2-incentive spirometry 3-if the patient spike any fever or any change his clinical condition to obtain appropriate culture before starting the patient on antibiotics We will follow on clinical condition and cultures to further adjust medication if needed Thank you for this consultation we will follow the patient along with you Past Medical History Past Medical History: COPD, Hypertension Additional Past Medical History / Comment(s): Alcoholism-patient was drinking a fifth/gallon of alcohol daily until recent admission April 01, 2021; smoker; COPD; herniated discs, arrived at hospital with hudson catheter from [facility] History of Any Multi-Drug Resistant Organisms: None Reported Past Surgical History: No Surgical Hx Reported Past Anesthesia/Blood Transfusion Reactions: No Reported Reaction Past Psychological History: No Psychological Hx Reported Smoking Status: Former smoker Past Alcohol Use History: Abuse, Daily, Heavy Additional Past Alcohol Use History / Comment(s): Patient was drinking a fifth / gallon daily for many years prior to recent hospital admission April 01, 2021. Per daughter. Patient was sent from hospital to [facility] for rehab. Patient was living in a home with friends, the home was raided by police for cooking meth. Past Drug Use History: Marijuana Medications and Allergies Home Medications Medication Instructions Recorded Confirmed Type Acetaminophen Tab [Tylenol] 650 mg PO Q6HR PRN tab 04/15/21 04/28/21 Rx Enoxaparin [Lovenox] 40 mg SQ DAILY syringe 04/15/21 04/28/21 Rx Folic Acid 1 mg PO DAILY #30 tablet 04/15/21 04/28/21 Rx Furosemide [Lasix] 40 mg PO DAILY #30 tablet 04/15/21 04/28/21 Rx Multivitamins, Thera [Multivitamin 1 tab PO DAILY #30 tablet 04/15/21 04/28/21 Rx (formulary)] Sodium Bicarbonate Tab 650 mg PO BID tab 04/15/21 04/28/21 Rx Thiamine [Vitamin B-1] 100 mg PO DAILY tab 04/15/21 04/28/21 Rx Healthshake 1 can PO TID@0700,1200,1700 04/28/21 04/28/21 History Ipratropium-Albuterol Nebulize 3 ml INHALATION RT-Q4H PRN 04/28/21 04/28/21 History [Duoneb 0.5 mg-3 mg/3 ml Soln] Ipratropium-Albuterol Nebulize 3 ml INHALATION RT-Q6H 04/28/21 04/28/21 History [Duoneb 0.5 mg-3 mg/3 ml Soln] Omeprazole 20 mg PO DAILY 04/28/21 04/28/21 History Fluconazole [Diflucan] 150 mg PO DAILY #5 tab 05/06/21 Rx Spironolactone [Aldactone] 100 mg PO DAILY tab 05/06/21 Rx Allergies Allergy/AdvReac Type Severity Reaction Status Date / Time No Known Allergies Allergy Verified 04/28/21 12:57 Physical Exam Vitals: Vital Signs Temp Pulse Resp BP BP Pulse Ox 05/10/21 07:52 98.3 F 92 17 127/88 98 05/10/21 01:34 97.6 F 98 19 127/82 97 05/09/21 20:00 100 18 05/09/21 19:39 97.8 F 100 18 111/76 98 Intake and Output 05/09/21 05/10/21 05/10/21 22:59 06:59 14:59 Output Total 500 Balance -500 Output: Urine 500 Other: Voiding Method Indwelling Catheter Indwelling Catheter # Bowel Movements 1 1 Results CBC & Chem 7: 05/09/21 05:23 05/10/21 04:48 Labs: Abnormal Lab Results - Last 24 Hours (Table) 05/09/21 05/10/21 Range/Units 05:23 04:48 Sodium 129 L (137-145) mmol/L Chloride 97 L (98-107) mmol/L BUN 53 H (9-20) mg/dL Creatinine 1.67 H (0.66-1.25) mg/dL Procalcitonin 0.48 H (0.02-0.09) ng/mL Microbiology - Last 24 Hours (Table) 05/09/21 16:10 Urine Culture - Preliminary Urine,Clean Catch
[2021-05-11] MEDS: PANTOPRAZOLE 40 MG TABLET PO SCH (08:32)
[2021-05-11] MEDS: SPIRONOLACTONE 25 MG TAB PO SCH (08:32)
[2021-05-11] MEDS: THIAMINE 100 MG TAB PO SCH (08:32)
[2021-05-11] MEDS: FUROSEMIDE 40 MG TAB PO SCH (08:32)
[2021-05-11] MEDS: SODIUM BICARBONATE TAB 650 MG TAB PO SCH ×2 (08:32→21:39)
[2021-05-11] MEDS: FOLIC ACID 1 MG TAB PO SCH (08:33)
[2021-05-11 09:01] LABS: INR 1.1 (<1.2); Prothrombin Time 11.9 sec (9.0-12.0)
--- NOTE | 2021-05-11 09:21 | XR ---
EXAMINATION TYPE: XR chest 2V DATE OF EXAM: 05/11/2021 COMPARISON: 05/10/2021 HISTORY: Shortness of breath TECHNIQUE: Frontal and lateral views of the chest are obtained. FINDINGS: Scattered senescent parenchymal changes noted. Hyperinflation compatible with COPD. Perihilar and basilar atelectasis or infiltrates persist with small effusions. No significant change. Heart size is stable. Mediastinal structures are stable and grossly unremarkable. No evidence for hilar prominence. Degenerative changes dorsal spine. IMPRESSION: 1. Perihilar and basilar atelectasis or infiltrates persist with small effusions. No significant avendano ge.
--- NOTE | 2021-05-11 09:24 | P.PN ---
Subjective Patient is seen in follow-up for acute kidney injury and hyponatremia. Renal function stable. Sodium level 129 yesterday. Oral intake poor. Blood pressure stable. No changes overnight. Scheduled for paracentesis today. Vital signs are stable. General: The patient appeared well nourished and normally developed. HEENT: Head exam is unremarkable. LUNGS: Breath sounds decreased. HEART: Rate and Rhythm are regular. ABDOMEN: Soft, distention noted. EXTREMITITES: No edema. Objective - Vital Signs Vital signs: Vital Signs Temp 98.6 F 05/11/21 07:41 Pulse 95 05/11/21 07:41 Resp 18 05/11/21 07:41 BP 120/81 05/11/21 07:41 Pulse Ox 95 05/11/21 07:41 Intake & Output 05/10/21 05/11/21 05/11/21 18:59 06:59 18:59 Intake Total 170 Output Total 400 500 Balance -400 -330 Weight 80 kg Intake: Intake, IV Titration 50 Amount cefTRIAXone 1 gm In 50 Sodium Chloride 0.9% 50 ml @ 100 mls/hr [facility] Rx#:[id number] Oral 120 Output: Urine 400 500 Other: Voiding Method Indwelling Catheter Indwelling Catheter Indwelling Catheter # Bowel Movements 1 - Labs CBC & Chem 7: 05/09/21 05:23 05/10/21 04:48 Labs: Microbiology - Last 24 Hours (Table) 05/09/21 16:10 Urine Culture - Final Urine,Clean Catch Assessment and Plan Plan: Assessment: 1. Hypovolemic hyponatremia post large volume paracentesis. Sodium level 129 yesterday. 2. Chronic kidney disease stage IIIA with baseline creatinine 1.1-1.3 secondary to hepatorenal syndrome. UPC 0.38. Repeat UA shows no proteinuria. 3. Acute kidney injury secondary to ATN from large volume paracentesis. Creatinine stable at 1.67 today. 4. Alcohol induced liver cirrhosis. 5. Mild left-sided hydronephrosis noted on CAT scan which appears to be chronic. Patient will need to see urology outpatient. 6. Hypomagnesemia from poor intake and diuretics. Replace. Plan: Maintain Lasix and Aldactone. Will increase dose of spironolactone if potassium remains stable - 5.0 yester day. 1200 mL fluid restriction. Encourage oral intake, particularly protein. Low salt diet. Avoid nephrotoxins. Morning labs pending. Paracentesis today - 25 g albumin pre-and post procedure. Overall prognosis guarded.
[2021-05-11] MEDS: ALBUMIN HUMAN 25% 50 ML in EMPTY BAG 1 BAG IVPB SCH ×4 (10:03→17:04)
--- NOTE | 2021-05-11 14:32 | US ---
EXAMINATION TYPE: US paracentesis abd w/image DATE OF EXAM: 05/11/2021 COMPARISON: NONE HISTORY: Ascites. PROCEDURE: Maximal barrier technique was utilized. The skin overlying a suitable pocket of fluid was localized with ultrasound and the overlying skin was prepped and draped. Ultrasound was utilized with sterile technique. Lidocaine was used for local anesthesia and a skin basil made with a scalpel. Catheter was advanced under direct ultrasound guidance into a suitable pocket of fluid and approximately 8.2 liter s of serous fluid were removed. Catheter was withdrawn and hemostasis achieved. There is no immedia te complication; the patient is discharged in stable condition. IMPRESSION: STATUS POST ULTRASOUND GUIDED PARACENTESIS FOR PALLIATION OF ASCITES. THIS PROCEDURE WA S PERFORMED BY THE UNDERSIGNED.
[2021-05-11] MEDS ORDERED: IOPAMIDOL CONTRAST (ORAL USE) VIAL PO PRN (14:44)
[2021-05-11 15:04] LABS: Appearance,BF Hazy; Nucleated Cells, Body Fluid 20 /uL; RBC, Body Fluid 34 /uL
[2021-05-11 15:21] LABS: Mononuclear WBC,Body Fluid 74 %; Polynuclear WBC,Body Fluid 26 %; Total Cells Counted,Body Fluid 100
[2021-05-11 16:05] LABS: Basophils # (A) 0.16 X 10*3/uL (0.00-0.10); Crenated RBC 3+; Eosinophils # (A) 0.21 X 10*3/uL (0.04-0.35); Eosinophils % (A) 1.3 %; HCT 36.5 % (39.6-50.0); HGB 11.7 g/dL (13.0-17.0); Lymphocytes # (A) 3.45 X 10*3/uL (0.90-5.00); Lymphocytes % (A) 21.1 %; MCHC 32.1 g/dL (32.0-37.0); MCV 99.7 fL (80.0-97.0); Monocytes # (A) 1.39 X 10*3/uL (0.20-1.00); Monocytes % (A) 8.5 %; Neutrophils # (A) 10.74 X 10*3/uL (1.80-7.70); Neutrophils % (A) 65.8 %; Platelet Count 316 X 10*3/uL (140-440); RBC 3.66 X 10*6/uL (4.40-5.60); RDW 15.7 % (11.5-14.5); WBC 16.32 X 10*3/uL (4.50-10.00)
[2021-05-11 16:32] LABS: African American GFR (CKD) 46.3 (60.0-200.0); Albumin 2.7 g/dL (3.80-4.90); Albumin/Globulin Ratio 1.08 (1.60-3.17); Anion Gap 11.9 mmol/L (4.00-12.00); BUN/Creat Ratio 29.41 Ratio (12.00-20.00); Bilirubin, Conjugated 1.5 mg/dL (0.20-0.40); Bilirubin,Unconjugated 0.5 mg/dL; Calcium 8.8 mg/dL (8.7-10.3); Carbon Dioxide 23.1 mmol/L (21.6-31.8); Globulin 2.5 g/dL (1.6-3.3); Magnesium 1.8 mg/dL (1.5-2.4); Potassium 5.2 mmol/L (3.5-5.5); Total Protein 5.2 g/dL (6.2-8.2)
--- NOTE | 2021-05-11 17:02 | CT ---
EXAMINATION TYPE: CT abdomen pelvis wo con DATE OF EXAM: 05/11/2021 COMPARISON: 04/28/2021 HISTORY: abdominal pain CT DLP: 562 mGycm Automated exposure control for dose reduction was used. Images obtained from the diaphragm to the floor the pelvis with no contrast. There are moderate bilateral pleural effusions. There is bilateral basilar pulmonary atelectasis and infiltrate. Heart size is fairly normal. There is atherosclerotic vascular calcification. Ascending a frankie measures 4 cm. There is no pericardial effusion. Spleen is measuring 13 cm. Liver shows no focal defect. There is dilated gallbladder measuring 4.5 cm . The bile ducts are not dilated. The stomach is intact. There is no evidence of pancreatic mass. The re is mild abdominal ascites. There is no adrenal mass. There are bilateral multiple large renal calculi. These measure up to 1.3 cm. There is no retroperito poli adenopathy. There is increased density involving the right psoas muscle consistent with retroper itoneal hemorrhage. This measures 5 cm in diameter. Abdominal aorta is atheromatous. There is Lou catheter in the urinary bladder. Bladder is almost em pty. The ureters are not dilated. There are left-sided renal parapelvic cysts. There is large left re nal pelvis. I see no retroperitoneal adenopathy. Liver is somewhat irregular and consistent with cirr hosis. Lumbar spine is intact. There is no compression fracture. Bony pelvis is intact. IMPRESSION: Bilateral pleural effusions and basilar infiltrate and atelectasis without change. Abdominal ascites is improved compared to old exam. There is increased left side hydronephrosis gay red to old exam. Ureteral calculus not identified. Multiple bilateral renal calculi. Right side psoas muscle hematoma slight increased size compared to old exam. Changes in the liver con sistent with cirrhosis.
[2021-05-11] MEDS: FLUCONAZOLE 150 MG TAB PO SCH (18:59)
--- NOTE | 2021-05-11 19:16 | PN ---
PROGRESS NOTE DATE OF SERVICE: 05/11/2021 This 70-year-old gentleman who was admitted with abdominal pain and tenderness was initially suspected to have spontaneous bacterial peritonitis. Patient had reaccumulation of ascites. Repeat ascitic paracentesis was planned at this time. The patient also was thought to have a UTI. The patient has also had fungal organisms. Odette glabrata was grown from the culture on 04/28/2021. The most recent UA on 05/09 is also positive. I would recommend repeating the UA at this time. Past medical history reviewed. REVIEW OF SYSTEMS: CARDIOVASCULAR SYSTEM: No angina. RESPIRATION: No cough, hemoptysis. GI: As mentioned earlier. : No dysuria. NERVOUS SYSTEM: No numbness, weakness. CURRENT MEDICATIONS: Reviewed. They include Tylenol, DuoNeb, fluconazole, folic acid, Lasix, Protonix, aldactone, vitamin B1. PHYSICAL EXAMINATION: Patient is alert, oriented x3. Pulse 95, blood pressure 120/81, respiration 18, temperature 98.6, pulse ox 94% on room air. HEENT: Conjunctivae normal. NECK: No jugular venous distention. CARDIOVASCULAR: S1, S2 muffled. RESPIRATION: Breath sounds diminished at the bases. A few scattered rhonchi. ABDOMEN: Soft. Ascites present. No mass palpable. LEGS: No edema. No swelling. NERVOUS SYSTEM: No focal deficit. LABS: WBC 16, hemoglobin 12. Sodium is 129. ASSESSMENT: 1. Abdominal pain and tenderness; possible spontaneous bacterial peritonitis. 2. Decompensated liver cirrhosis, newly diagnosed with ascites and portal hypertension. 3. Possible psoas hematoma. 4. Odette glabrata and possible fungal urinary tract infection. 5. Acute kidney injury with chronic kidney disease, stage 3 baseline. 6. Hypovolemic hyponatremia. 7. Chronic obstructive pulmonary disease. 8. Hypertension. 9. History of alcoholism. 10.History of nicotine dependence. 11.Elevated alkaline phosphatase. 12.Elevated serum bilirubin. RECOMMENDATIONS AND DISCUSSION: I recommend to continue current medications, continue with symptomatic treatment. Otherwise, I would recommend repeat labs. Repeat electrolytes. Repeat UA with micro and CT scan of the abdomen and pelvis also repetition to ensure clearance. The BUN and creatinine have been followed carefully and we will continue to monitor. Further recommendations to follow. If the potassium is elevated, we will stop Aldactone. Continue to monitor. MMODL / IJN: [id number] /
[2021-05-11 22:23] LABS: Glucose, BF Source Paracentesis Fluid; Glucose, Body Fluid 105 mg/dL; LDH, Body Fluid Source Paracentesis Fluid; Total Protein, Body Fluid 787 mg/dL
[2021-05-11 23:19] LABS: Appearance,Urine Cloudy (Clear); Bacteria,Urine Rare /hpf; Bilirubin,Urine Negative (Negative); Blood,Urine Large (Negative); Color,Urine Yellow; Glucose,Urine (UA) Negative (Negative); Hyaline Casts,Urine 1 /lpf (0-2); Ketones,Urine Negative (Negative); Leukocyte Esterase,Urine Large (Negative); Mucus,Urine Rare /hpf; Nitrite,Urine Negative (Negative); PH, Urine 7.5 (5.0-8.0); Protein,Urine Trace (Negative); RBC,Urine >182 /hpf (0-5); Specific Gravity,Urine 1.012 (1.001-1.035); Squamous Epithelial Cell,Urine <1 /hpf (0-4); Urobilinogen,Urine <2.0 mg/dL (<2.0); WBC,Urine 50 /hpf (0-5)
--- NOTE | 2021-05-11 23:31 | PN ---
PROGRESS NOTE DATE OF SERVICE: 05/11/2021 REASON FOR FOLLOWUP: Leukocytosis and UTI. INTERVAL HISTORY: The patient is status post large-volume paracentesis. Patient tolerated the procedure. Overall abdominal distention has decreased. Denies having any chest pain or shortness of breath or cough. No diarrhea. The patient did have a Lou catheter that has not been changed for more than 2 weeks now. PHYSICAL EXAMINATION: Blood pressure 110/75 with a pulse of 61, temperature 98.4. He is 97% on room air. GENERAL DESCRIPTION: General description is an elderly male lying in bed in no distress. RESPIRATORY SYSTEM: Unlabored breathing. Clear to auscultation anteriorly. HEART: S1, S2. Regular rate and rhythm. ABDOMEN: Soft. No tenderness. EXTREMITIES: No edema of the feet. LABS: Hemoglobin 11.6, white count 16.32, BUN 15, creatinine 1.7. The peritoneal fluid shows only 20 nucleated cells. DIAGNOSTIC IMPRESSION AND PLAN: 1. Patient with recurrent ascites from cirrhosis of the liver in this patient who did have multiple paracenteses. However, the fluid count has not been high. Clinically not behaving as SBP. 2. Patient with a positive urine culture with Odette glabrata. Subsequently cultures were negative. The patient did have indwelling Lou catheter which should be changed. Obtain a urine culture from the new Lou. Check inflammatory markers in the morning. Continue with supportive care. MMODL / IJN: [id number] /
[2021-05-12 05:03] LABS: African American GFR (CKD) 46.3 (60.0-200.0); Albumin/Globulin Ratio 1.3 (1.60-3.17); Anion Gap 13.5 mmol/L (4.00-12.00); BUN/Creat Ratio 27.65 Ratio (12.00-20.00); Calcium 8.7 mg/dL (8.7-10.3); Carbon Dioxide 22.5 mmol/L (21.6-31.8); Globulin 2.3 g/dL (1.6-3.3); Total Bilirubin 1.8 mg/dL (0.2-1.2); Total Protein 5.3 g/dL (6.2-8.2)
[2021-05-12] MEDS: SPIRONOLACTONE 25 MG TAB PO SCH (09:50)
[2021-05-12] MEDS: FOLIC ACID 1 MG TAB PO SCH (09:50)
[2021-05-12] MEDS: FUROSEMIDE 40 MG TAB PO SCH (09:51)
[2021-05-12] MEDS: SODIUM BICARBONATE TAB 650 MG TAB PO SCH ×2 (09:51→20:11)
[2021-05-12] MEDS: THIAMINE 100 MG TAB PO SCH (09:51)
[2021-05-12] MEDS: PANTOPRAZOLE 40 MG TABLET PO SCH (09:51)
[2021-05-12 10:00] LABS: Basophils # (A) 0.11 X 10*3/uL (0.00-0.10); Basophils % (A) 0.8 %; Eosinophils # (A) 0.12 X 10*3/uL (0.04-0.35); Eosinophils % (A) 0.9 %; HCT 32.4 % (39.6-50.0); HGB 10.6 g/dL (13.0-17.0); Lymphocytes # (A) 3.18 X 10*3/uL (0.90-5.00); Lymphocytes % (A) 22.9 %; MCH 31.5 pg (27.0-32.0); MCHC 32.7 g/dL (32.0-37.0); MCV 96.4 fL (80.0-97.0); Monocytes # (A) 1.22 X 10*3/uL (0.20-1.00); Monocytes % (A) 8.8 %; Neutrophils # (A) 9.03 X 10*3/uL (1.80-7.70); Neutrophils % (A) 64.9 %; Platelet Count 364 X 10*3/uL (140-440); RBC 3.36 X 10*6/uL (4.40-5.60); RDW 15.5 % (11.5-14.5)
[2021-05-12] MEDS: ACETAMINOPHEN TAB 325 MG TAB PO PRN ×2 (11:16→20:11)
--- NOTE | 2021-05-12 13:54 | PN ---
PROGRESS NOTE DATE OF SERVICE: 05/12/2021 REASON FOR FOLLOWUP: Positive urine cultures and leukocytosis. INTERVAL HISTORY: The patient is currently afebrile. The patient is feeling better, breathing comfortably. Denies having any chest pain, shortness of breath or cough. No abdominal pain. Has been complaining of pain to the left leg. PHYSICAL EXAMINATION: Blood pressure is 114/79 with a pulse of 97, temperature is 97.7. He is 95% on room air. General description is an elderly male lying in bed in no distress. Respiratory system: Unlabored breathing, clear to auscultation anteriorly. Heart S1, S2. Regular rate and rhythm. ABDOMEN: Soft, no tenderness. EXTREMITIES: No edema of the feet. LABS: White count is down to 13.90, BUN of 47, creatinine 1.7. Repeat urine is not significantly positive. DIAGNOSTIC IMPRESSION AND PLAN: 1. Patient with a positive UA, urine culture with Odette glabrata, possibly Lou colonization. No need for any antifungal at this point. We will follow up repeat urine culture. 2. Elevated white count, possible reactive and is now showing a downward trend. Patient with no fever, does not look toxic and will monitor closely. MMODL / IJN: [id number] /
--- NOTE | 2021-05-12 16:19 | P.PN ---
Subjective Progress Note Date: 05/12/21 This is a 70-year-old male who was recently admitted with abdominal pain along with tenderness and initially suspected to have spontaneous bacterial peritonitis and infectious disease is following closely. Patient underwent IR guided abdominal paracentesis yesterday with approximately 8.2 L of serous fluid removed and specimen was sent to the lab. Patient received albumin prior to and post the procedure. Multiple medical consultations including nephrology, infectious disease following closely. Patient had a repeat urinalysis with urine culture and awaiting for finalization to determine possible discharge antibiotics or antifungal needs. Appreciate input and recommendations from infectious disease. A continues on 1200 mL fluid restrictions along with IV ceftriaxone and most recent indwelling Lou catheter has been changed. Patient does have a history of chronic indwelling Lou catheter. Patient underwent CT abdomen. White blood count is 13.9 with hemoglobin of 10.6. Ascitic fluid from paracentesis sent for fluid analysis and awaiting for finalization along with repeat urinalysis. Patient to continue with fluid restrictions of 1200 mL's per day. Patient is also maintained on Lasix and Aldactone along with sodium bicarb tablets and will continue. Social work also following as patient is a resident at [facility] and lanced to return there once stabilized and discharged. Review of systems: Constitutional: No reports of fatigue, fever, or chills Cardiovascular: No reports of chest pain or palpitations Respiratory: No reports of shortness of breath or cough GI: No reports of nausea, vomiting, or diarrhea : No reports of dysuria or retention Neurovascular: Reports generalized weakness All medications have been reviewed Active Medications Acetaminophen (Acetaminophen Tab 325 Mg Tab) 650 mg PO Q6HR PRN PRN Reason: Mild Pain or Fever > 100.5 Last Admin: 05/12/21 11:16 Dose: 650 mg Documented by: Albuterol/Ipratropium (Ipratropium-Albuterol 3 Ml Neb) 3 ml INHALATION RT-Q4H PRN PRN Reason: Shortness Of Breath Last Admin: 05/02/21 08:59 Dose: 3 ml Documented by: Folic Acid (Folic Acid 1 Mg Tab) 1 mg PO DAILY [facility] Last Admin: 05/12/21 09:50 Dose: 1 mg Documented by: Furosemide (Furosemide 40 Mg Tab) 40 mg PO DAILY [facility] Last Admin: 05/12/21 09:51 Dose: 40 mg Documented by: Ceftriaxone Sodium 1 gm/ (Sodium Chloride) 50 mls @ 100 mls/hr IVPB BID [facility] Last Admin: 05/12/21 09:48 Dose: 100 mls/hr Documented by: Naloxone HCl (Naloxone 0.4 Mg/Ml 1 Ml Vial) 0.2 mg IV Q2M PRN PRN Reason: Opioid Reversal Pantoprazole Sodium (Pantoprazole 40 Mg Tablet) 40 mg PO DAILY [facility] Last Admin: 05/12/21 09:51 Dose: 40 mg Documented by: Sodium Bicarbonate (Sodium Bicarbonate Tab 650 Mg Tab) 650 mg PO BID [facility] Last Admin: 05/12/21 09:51 Dose: 650 mg Documented by: Spironolactone (Spironolactone 25 Mg Tab) 50 mg PO DAILY [facility] Last Admin: 05/12/21 09:50 Dose: 50 mg Documented by: Thiamine HCl (Thiamine 100 Mg Tab) 100 mg PO DAILY [facility] Last Admin: 05/12/21 09:51 Dose: 100 mg Documented by: Objective - Vital Signs Vital signs: Vital Signs Temp 97.7 F 05/12/21 07:28 Pulse 97 05/12/21 07:28 Resp 16 05/12/21 07:28 BP 114/79 05/12/21 07:28 Pulse Ox 95 05/12/21 07:28 Intake & Output 05/11/21 05/12/21 05/12/21 18:59 06:59 18:59 Intake Total 550 220 Output Total 1000 350 Balance -450 -130 Weight 80 kg 72 kg Intake: Intake, IV Titration 100 Amount cefTRIAXone 1 gm In 100 Sodium Chloride 0.9% 50 ml @ 100 mls/hr IVPB BID [facility] Rx#:[id number] Oral 550 120 Output: Urine 1000 350 Uretheral (Lou) 350 Other: Voiding Method Indwelling Catheter Indwelling Catheter Indwelling Catheter # Voids 350 # Bowel Movements 1 2 - Exam Gen: This is a 70-year-old male awake, alert and oriented 3. Temp is 97.7F, pulse 97, respirations are 16, blood pressure is 114/79, oxygen saturation is 95% on room air. HEENT: Head is atraumatic, normocephalic. Pupils equal, round. Sclerae is anicteric. NECK: Supple. No JVD. No lymphadenopathy. No thyromegaly. LUNGS: Diminished breath sounds bilaterally with some scattered rhonchi noted. No intercostal retractions. HEART: S1, S2 are muffled ABDOMEN: Soft. Nontender. Bowel sounds are present. No masses. No tenderness. EXTREMITIES: No pedal edema. No calf tenderness. NEUROLOGICAL: Patient is awake, alert and oriented x3. No focal deficits noted. - Labs CBC & Chem 7: 05/12/21 06:05 05/11/21 15:50 Labs: Abnormal Lab Results - Last 24 Hours (Table) 05/11/21 05/11/21 05/11/21 Range/Units 05:20 05:20 15:50 WBC 16.32 H (4.50-10.00) X 10*3/uL RBC 3.66 L (4.40-5.60) X 10*6/uL Hgb 11.7 L (13.0-17.0) g/dL Hct 36.5 L (39.6-50.0) % MCV 99.7 H (80.0-97.0) fL RDW 15.7 H (11.5-14.5) % Immature Gran # 0.37 H (0.00-0.04) X 10*3/uL Neutrophils # 10.74 H (1.80-7.70) X 10*3/uL Monocytes # 1.39 H (0.20-1.00) X 10*3/uL Basophils # 0.16 H (0.00-0.10) X 10*3/uL Sodium 133 L 134 L (135-145) mmol/L Anion Gap 13.50 H (4.00-12.00) mmol/L BUN 50.0 H 47.0 H (9.0-27.0) mg/dL Creatinine 1.7 H 1.7 H (0.6-1.5) mg/dL Est GFR (CKD-EPI)AfAm 46.3 L 46.3 L (60.0-200.0) Est GFR (CKD-EPI)NonAf 40.0 L 40.0 L (60.0-200.0) BUN/Creatinine Ratio 29.41 H 27.65 H (12.00-20.00) Ratio Glucose 123 H (70-110) mg/dL Total Bilirubin 2.0 H 1.8 H (0.3-1.2) mg/dL Conjugated Bilirubin 1.50 H (0.20-0.40) mg/dL AST 53 H 42 H (14-35) U/L Alkaline Phosphatase 812 H 674 H (41-126) U/L Total Protein 5.2 L 5.3 L (6.2-8.2) g/dL Albumin 2.70 L 3.00 L (3.80-4.90) g/dL Albumin/Globulin Ratio 1.08 L 1.30 L (1.60-3.17) g/dL Urine Protein (Negative) Urine Blood (Negative) Ur Leukocyte Esterase (Negative) Urine RBC (0-5) /hpf Urine WBC (0-5) /hpf Urine Bacteria (None) /hpf Urine Mucus (None) /hpf 05/11/21 05/12/21 Range/Units 22:30 06:05 WBC 13.90 H (4.50-10.00) X 10*3/uL RBC 3.36 L (4.40-5.60) X 10*6/uL Hgb 10.6 L (13.0-17.0) g/dL Hct 32.4 L (39.6-50.0) % MCV (80.0-97.0) fL RDW 15.5 H (11.5-14.5) % Immature Gran # 0.24 H (0.00-0.04) X 10*3/uL Neutrophils # 9.03 H (1.80-7.70) X 10*3/uL Monocytes # 1.22 H (0.20-1.00) X 10*3/uL Basophils # 0.11 H (0.00-0.10) X 10*3/uL Sodium (135-145) mmol/L Anion Gap (4.00-12.00) mmol/L BUN (9.0-27.0) mg/dL Creatinine (0.6-1.5) mg/dL Est GFR (CKD-EPI)AfAm (60.0-200.0) Est GFR (CKD-EPI)NonAf (60.0-200.0) BUN/Creatinine Ratio (12.00-20.00) Ratio Glucose (70-110) mg/dL Total Bilirubin (0.3-1.2) mg/dL Conjugated Bilirubin (0.20-0.40) mg/dL AST (14-35) U/L Alkaline Phosphatase (41-126) U/L Total Protein (6.2-8.2) g/dL Albumin (3.80-4.90) g/dL Albumin/Globulin Ratio (1.60-3.17) g/dL Urine Protein Trace H (Negative) Urine Blood Large H (Negative) Ur Leukocyte Esterase Large H (Negative) Urine RBC >182 H (0-5) /hpf Urine WBC 50 H (0-5) /hpf Urine Bacteria Rare H (None) /hpf Urine Mucus Rare H (None) /hpf Microbiology - Last 24 Hours (Table) 05/11/21 11:55 Gram Stain - Preliminary Paracentesis Fluid Body Fluid Culture - Preliminary 05/11/21 11:55 Anaerobic Culture - Preliminary Paracentesis Fluid Assessment and Plan Assessment: Abdominal pain and tenderness, possible spontaneous bacterial peritonitis Decompensated liver cirrhosis, newly diagnosed with ascites and portal hypertension Possible psoas hematoma Odette glabrata and possible fungal urinary tract infection acute kidney injury with chronic kidney disease, stage III baseline Hypovolemic hyponatremia Chronic obstructive pulmonary disease History of alcoholism Hypertension history of nicotine dependence elevated alkaline phosphatase Elevated serum bilirubin No code Recommendations and discussion: Recommend continue current medications, management, and symptomatic treatment. Nephrology along with infectious disease following closely. Patient underwent CT abdomen showing bilateral pleural effusions and basilar infiltrate and atele ctasis without change, liver is somewhat irregular and consistent with cirrhosis, abdominal ascites is improved compared all exam and there is increased left-sided hydronephrosis compared to old exam along with multiple bilateral renal calculi, ureteral calculus not identified, right side psoas musc le hematoma slightly increased in size compared to old exam. Due to multiple complex medical issues prognosis remains guarded. Will repeat labs and monitor closely. Time with Patient: Greater than 30
--- NOTE | 2021-05-12 19:06 | PN ---
PROGRESS NOTE Patient is seen for followup for acute kidney injury and hyponatremia. Patient's serum sodium has improved to 134. He is currently doing fairly well. These are labs from yesterday. Serum creatinine was 1.7. Patient currently has a Lou catheter. He has had good urine output. On physical examination, blood pressure 122/74, heart rate 92 per minute. He is afebrile. EXAMINATION OF THE HEART: S1 and S2. EXAMINATION OF LUNGS: Bilateral breath sounds are heard. ABDOMEN: Soft, nontender. LOWER EXTREMITIES: Examination of lower extremities shows no evidence of edema. VISUAL MERCHANDISING ASSISTANT EXAM: Grossly intact. Labs show hemoglobin 10.6 g/dL. Sodium was 134 on 05/11/2021. No labs available from today. ASSESSMENT: 1. Hyponatremia associated with underlying chronic liver disease. Sodium is currently improved to 134. Patient is status post normal saline, currently maintained on Lasix, which we can continue for now. I will repeat labs in a.m. 2. Odette urinary tract infection. 3. Metabolic acidosis, maintained on oral sodium bicarb. 4. Chronic kidney disease, stage 3. Baseline creatinine 1.1 to 1.3. 5. Acute kidney injury associated with acute tubular necrosis with large-volume paracentesis. 6. Mild left hydronephrosis noted on CT scan. Appears to be chronic. PLAN: Repeat labs in a.m. May continue with Lasix for now along with Aldactone. MMODL / IJN: [id number] /
[2021-05-13] MEDS: THIAMINE 100 MG TAB PO SCH (08:20)
[2021-05-13] MEDS: PANTOPRAZOLE 40 MG TABLET PO SCH (08:20)
[2021-05-13] MEDS: SODIUM BICARBONATE TAB 650 MG TAB PO SCH (08:20)
[2021-05-13] MEDS: SPIRONOLACTONE 25 MG TAB PO SCH (08:21)
[2021-05-13] MEDS: FOLIC ACID 1 MG TAB PO SCH (08:21)
[2021-05-13] MEDS: FUROSEMIDE 40 MG TAB PO SCH (08:21)
[2021-05-13] MEDS: ACETAMINOPHEN TAB 325 MG TAB PO PRN ×3 (09:45→20:51)
[2021-05-13 11:01] LABS: African American GFR (CKD) 54 (>60 ml/min/1.73 sqM); Anion Gap 8 mmol/L; Blood Urea Nitrogen 40 mg/dL (9-20); Calcium 9.1 mg/dL (8.4-10.2); Carbon Dioxide 24 mmol/L (22-30); Chloride 98 mmol/L (98-107); Glucose 137 mg/dL (74-99); Non-African American GFR(CKD) 47 (>60 ml/min/1.73 sqM); Potassium 4.8 mmol/L (3.5-5.1); Sodium 130 mmol/L (137-145)
--- NOTE | 2021-05-13 11:11 | XR ---
EXAMINATION TYPE: XR chest 1V portable DATE OF EXAM: 05/13/2021 HISTORY: Shortness of breath. COMPARISON: 05/11/2021 TECHNIQUE: Single view of the chest is submitted. FINDINGS: Demonstrated are scattered senescent parenchymal change. Improved aeration throughout both lung burks with the residual basilar atelectasis or infiltrates. The heart is stable. Hilar and mediastinal structures are within normal limits. Degenerative changes are seen of the dorsal spine. IMPRESSION: 1. Improved aeration throughout both lung burks with the residual basilar atelectasis or infiltrate s.
--- NOTE | 2021-05-13 12:16 | PN ---
PROGRESS NOTE Patient is seen for followup for acute kidney injury. Renal function continues to improve, creatinine down to 1.5 mg/dL. The patient is maintained on oral Lasix 40 mg p.o. daily. He was also hyponatremic; serum sodium staying at 130 to 134. On examination today, blood pressure 121/81, heart rate 92 per minute. He is afebrile. EXAMINATION OF THE HEART: S1 and S2. EXAMINATION OF LUNGS: Bilateral breath sounds are heard. Decreased breath sounds at the bases. ABDOMEN: Soft, nontender, distended. LOWER EXTREMITIES: Examination of lower extremities shows no significant edema. REFINISHER EXAM: Grossly intact. Labs show sodium 130, potassium 4.8, BUN 40, creatinine 1.5, hemoglobin 10.6 g/dL. ASSESSMENT: 1. Acute kidney injury, acute tubular necrosis, currently improving. The patient has an indwelling Lou catheter. 2. Hyponatremia, improved. The patient received saline initially. Currently he is maintained on Lasix. I do not see a urine osmolality. For now I will continue with the oral Lasix. We can decrease it to 20 mg. 3. Chronic liver disease with portal hypertension and ascites, status post paracentesis. 4. Odette glabrata urinary tract infection. PLAN: Decrease Lasix to 20 mg daily. Encourage increased oral intake. Decrease sodium bicarb and repeat labs in a.m. MMODL / IJN: [id number] /
--- NOTE | 2021-05-14 01:56 | PN ---
PROGRESS NOTE DATE OF SERVICE: 05/13/2021 REASON FOR FOLLOWUP: 1. Positive urine culture. 2. Leukocytosis. INTERVAL HISTORY: Patient is afebrile. The patient is breathing comfortably. The patient denies having any chest pain. No shortness of breath or cough. No abdominal pain or diarrhea. PHYSICAL EXAMINATION: Blood pressure 119/76, pulse of 93, temperature 98.1, he is 95% on room air. General description is an elderly male lying in bed in no distress. Respiratory system: Unlabored breathing, clear to auscultation anteriorly. Heart S1, S2. Regular rate and rhythm. Abdomen: Soft, no tenderness. LABS: No CBC was done today. DIAGNOSTIC IMPRESSION AND PLAN: 1. Patient with a positive urine culture. The patient from a chronic indwelling Lou catheter possible colonization. Repeat urine culture negative after change of his Lou catheter. 2. Patient with elevated white count with question of hematoma as no other obvious focus of infection. We will monitor the patient closely off antibiotic therapy. 3. Continue supportive care. MMLISAL / CARLN: [id number] /
[2021-05-14 06:11] LABS: African American GFR (CKD) 51 (>60 ml/min/1.73 sqM); Anion Gap 8 mmol/L; Blood Urea Nitrogen 40 mg/dL (9-20); C Reactive Protein 3.3 mg/dL (<1.0); Calcium 8.9 mg/dL (8.4-10.2); Carbon Dioxide 25 mmol/L (22-30); Chloride 98 mmol/L (98-107); Glucose 95 mg/dL (74-99); Non-African American GFR(CKD) 44 (>60 ml/min/1.73 sqM); Potassium 4.8 mmol/L (3.5-5.1); Sodium 131 mmol/L (137-145)
[2021-05-14] MEDS: ACETAMINOPHEN TAB 325 MG TAB PO PRN ×3 (07:36→19:44)
--- NOTE | 2021-05-14 08:32 | P.PN ---
Subjective Progress Note Date: 05/13/21 This is a 70-year-old male who was recently admitted with abdominal pain along with tenderness and initially suspected to have spontaneous bacterial peritonitis and infectious disease is following closely. Patient underwent IR guided abdominal paracentesis yesterday with approximately 8.2 L of serous fluid removed and specimen was sent to the lab. Patient received albumin prior to and post the procedure. Multiple medical consultations including nephrology, infectious disease following closely. Patient had a repeat urinalysis with urine culture and awaiting for finalization to determine possible discharge antibiotics or antifungal needs. Appreciate input and recommendations from infectious disease. Patient continues on 1200 mL fluid restrictions along with IV ceftriaxone and most recent indwelling Lou catheter has been changed. Patient does have a history of chronic indwelling Lou catheter. Patient underwent CT abdomen. White blood count is 13.9 with hemoglobin of 10.6. Ascitic fluid from paracentesis sent for fluid analysis and awaiting for finalization along with repeat urinalysis. Patient to continue with fluid restrictions of 1200 mL's per day. Patient is also maintained on Lasix and Aldactone along with sodium bicarb tablets and will continue. Social work also following as patient is a resident at [facility] and lanced to return there once stabilized and discharged. 05/13/2021 Patient is seen and evaluated in follow up currently working with PT/OT and continues to be weak. Patient denies any chest pain or shortness of breath. Patient with repeat urine culture remaining negative and now off antibiotics with ID following closely. Nephrology following as well. Patient abdomen distended but soft and patient denies pain. Patient chest xray shows improvement in aeration and residual basilar atelectasis. Encouraged incentive spirometer. WBC trending down Will repeat am labs. Lasix oral dose decreased to 20 mg daily and continued on aldactone. Review of systems: Constitutional: No reports of fatigue, fever, or chills Cardiovascular: No reports of chest pain or palpitations Respiratory: No reports of shortness of breath or cough GI: No reports of nausea, vomiting, or diarrhea, reports abdominal distention : No reports of dysuria or retention Neurovascular: Reports generalized weakness All medications have been reviewed Objective - Vital Signs Vital signs: Vital Signs Temp 97.7 F 05/13/21 06:30 Pulse 92 05/13/21 09:37 Resp 14 05/13/21 09:37 BP 121/81 09/01/21 06:30 Pulse Ox 97 05/13/21 06:30 Intake & Output 05/12/21 05/13/21 05/13/21 18:59 06:59 18:59 Intake Total 700 Output Total 550 Balance 150 Weight 71.5 kg Intake: Intake, IV Titration 50 Amount cefTRIAXone 1 gm In 50 Sodium Chloride 0.9% 50 ml @ 100 mls/hr IVPB BID [facility] Rx#:[id number] Oral 650 Output: Urine 550 Other: Voiding Method Indwelling Catheter Indwelling Catheter Indwelling Catheter # Bowel Movements 1 - Exam Gen: This is a 70-year-old male awake, alert and oriented 3. Temp is 97.7F, pulse 92, respirations are 14, blood pressure is 121/81, oxygen saturation is 97% on room air. HEENT: Head is atraumatic, normocephalic. Pupils equal, round. Sclerae is anicteric. NECK: Supple. No JVD. No lymphadenopathy. No thyromegaly. LUNGS: Diminished breath sounds bilaterally with some scattered rhonchi noted. No intercostal retractions. HEART: S1, S2 are muffled ABDOMEN: Soft. Non-tender. distended. Bowel sounds are present. No masses. EXTREMITIES: No pedal edema. No calf tenderness. bilateral lower extremity discoloration appears chronic noted NEUROLOGICAL: Patient is awake, alert and oriented x3. diffusely weak. - Labs CBC & Chem 7: 05/12/21 06:05 05/14/21 05:32 Labs: Microbiology - Last 24 Hours (Table) 05/11/21 22:30 Urine Culture - Preliminary Urine,Voided 05/11/21 11:55 Gram Stain - Preliminary Paracentesis Fluid Body Fluid Culture - Preliminary Assessment and Plan Assessment: Abdominal pain and tenderness, possible spontaneous bacterial peritonitis Decompensated liver cirrhosis, newly diagnosed with ascites and portal hypertension Possible psoas hematoma Odette glabrata and possible fungal urinary tract infection acute kidney injury with chronic kidney disease, stage III baseline Hypovolemic hyponatremia Chronic obstructive pulmonary disease History of alcoholism Hypertension history of nicotine dependence elevated alkaline phosphatase Elevated serum bilirubin No code Recommendations and discussion: Recommend continue current medications, management, and symptomatic treatment. Nephrology along with infectious disease following closely. Patient continues t o be weak and PT/OT working with the patient and will be returning to [place] once stabilized and discharged. Infectious disease following closely and patient is off antibiotics and being closely monitored. Repeat urine culture was negative showing no growth. Patient still has some abdominal distention but is soft and nontender on palpation. Patient will need outpatient follow-up with GI as he may likely need palliative paracentesis for recurrent ascites. Patient to continue on oral Lasix and Aldactone and nephrology following closely. He should also continue with fluid restrictions of 1200 ml per day. Due to multiple complex medical issues prognosis remains guarded. Will repeat labs and monitor closely. Possible discharge to [facility]CF in 24 hours.
[2021-05-14] MEDS ORDERED: SODIUM BICARBONATE TAB 650 MG TAB PO SCH (09:00)
[2021-05-14 09:46] LABS: Basophils # (A) 0.14 X 10*3/uL (0.00-0.10); Eosinophils # (A) 0.18 X 10*3/uL (0.04-0.35); Eosinophils % (A) 1.2 %; HCT 35.3 % (39.6-50.0); HGB 11.3 g/dL (13.0-17.0); Lymphocytes # (A) 3.21 X 10*3/uL (0.90-5.00); Lymphocytes % (A) 21.9 %; MCH 30.6 pg (27.0-32.0); MCV 95.7 fL (80.0-97.0); Mean Platelet Volume 9.7 fL (9.5-12.2); Monocytes # (A) 1.16 X 10*3/uL (0.20-1.00); Monocytes % (A) 7.9 %; Neutrophils # (A) 9.65 X 10*3/uL (1.80-7.70); Neutrophils % (A) 65.8 %; Platelet Count 391 X 10*3/uL (140-440); RBC 3.69 X 10*6/uL (4.40-5.60); RDW 15.8 % (11.5-14.5); WBC 14.66 X 10*3/uL (4.50-10.00)
[2021-05-14] MEDS: FOLIC ACID 1 MG TAB PO SCH (09:46)
[2021-05-14] MEDS: PANTOPRAZOLE 40 MG TABLET PO SCH (09:47)
[2021-05-14] MEDS: FUROSEMIDE 20 MG TAB PO SCH (09:47)
[2021-05-14] MEDS: THIAMINE 100 MG TAB PO SCH (09:47)
[2021-05-14] MEDS: SPIRONOLACTONE 25 MG TAB PO SCH (09:47)
--- NOTE | 2021-05-14 12:21 | PN ---
PROGRESS NOTE Patient is seen for followup for acute kidney injury, hyponatremia, currently stable. Serum sodium staying at about 130 to 134. Serum creatinine has improved down to 1.5. Patient is comfortable. No significant complaints today. On examination, blood pressure 112/74, heart rate 94 per minute. He is afebrile. EXAMINATION OF THE HEART: S1 and S2. EXAMINATION OF LUNGS: Bilateral breath sounds are heard. ABDOMEN: Soft, nontender. LOWER EXTREMITIES: Examination of lower extremities shows no edema. OIL FIRE SPECIALIST EXAM: Grossly intact. Labs show sodium 131, potassium 4.8, BUN 40, creatinine 1.5, hemoglobin 11.3. ASSESSMENT: 1. Acute kidney injury, mostly prerenal, currently improved. The patient also has urine retention. He has an indwelling Lou catheter. 2. Hyponatremia, currently stable. Maintained on low-dose loop diuretics. Dose was decreased to 20 mg daily from 40 mg. The patient is also on sodium bicarb, which I will discontinue since his metabolic acidosis is improved with improving renal function. 3. Chronic liver disease. 4. Portal hypertension and ascites, status post paracentesis. PLAN: Continue with Lasix 20 mg daily. Discontinue sodium bicarb. Continue with Lou catheter. Okay to discharge patient. Monitor labs as outpatient. MMODL / IJN: [id number] /
--- NOTE | 2021-05-14 13:35 | PN ---
PROGRESS NOTE DATE OF SERVICE: 05/14/2021 REASON FOR FOLLOWUP: Elevated white count and UTI. INTERVAL HISTORY: The patient is afebrile. The patient is currently breathing comfortably. Denies having any chest pain, shortness of breath or cough. He is complaining of some abdominal pain which is more off and on, and no worsening. PHYSICAL EXAMINATION: Blood pressure 115/77, pulse of 93, temperature 98. He is 96% on room air. GENERAL DESCRIPTION: General description is an elderly male lying in bed in no distress. RESPIRATORY SYSTEM: Unlabored breathing. Clear to auscultation anteriorly. HEART: S1, S2. Regular rate and rhythm. ABDOMEN: Soft. No tenderness. EXTREMITIES: No edema of the feet. LABS: Hemoglobin is 11.3, white count of 14.66, BUN of 40, creatinine 1.57. DIAGNOSTIC IMPRESSION AND PLAN: 1. Patient with a positive urine culture with Odette glabrata, possible Lou catheter-associated. Subsequently Lou has been discontinued and repeat urine has been negative. No need for further workup. 2. Patient with elevated white count, multifactorial, questionably related to the right psoas mass or hematoma. Clinically not behaving as an abscess in this patient with no fever. Needs to be monitored closely. Continue supportive care. MMODL / IJN: [id number] /
[2021-05-15] MEDS: ACETAMINOPHEN TAB 325 MG TAB PO PRN ×4 (01:40→17:12)
--- NOTE | 2021-05-15 02:57 | P.PN ---
Subjective Progress Note Date: 05/14/21 This is a 70-year-old male who was recently admitted with abdominal pain along with tenderness and initially suspected to have spontaneous bacterial peritonitis and infectious disease is following closely. Patient underwent IR guided abdominal paracentesis yesterday with approximately 8.2 L of serous fluid removed and specimen was sent to the lab. Patient received albumin prior to and post the procedure. Multiple medical consultations including nephrology, infectious disease following closely. Patient had a repeat urinalysis with urine culture and awaiting for finalization to determine possible discharge antibiotics or antifungal needs. Appreciate input and recommendations from infectious disease. Patient continues on 1200 mL fluid restrictions along with IV ceftriaxone and most recent indwelling Lou catheter has been changed. Patient does have a history of chronic indwelling Lou catheter. Patient underwent CT abdomen. White blood count is 13.9 with hemoglobin of 10.6. Ascitic fluid from paracentesis sent for fluid analysis and awaiting for finalization along with repeat urinalysis. Patient to continue with fluid restrictions of 1200 mL's per day. Patient is also maintained on Lasix and Aldactone along with sodium bicarb tablets and will continue. Social work also following as patient is a resident at [facility] and lanced to return there once stabilized and discharged. 05/13/2021 Patient is seen and evaluated in follow up currently working with PT/OT and continues to be weak. Patient denies any chest pain or shortness of breath. Patient with repeat urine culture remaining negative and now off antibiotics with ID following closely. Nephrology following as well. Patient abdomen distended but soft and patient denies pain. Patient chest xray shows improvement in aeration and residual basilar atelectasis. Encouraged incentive spirometer. WBC trending down Will repeat am labs. Lasix oral dose decreased to 20 mg daily and continued on aldactone. 05/14/2021 Patient is seen this morning and sleeping but arousable. Patient continues to be weak. ID and nephrology following and recommend to continue with current dosing of lasix and aldactone. Patient denies any shortness of breath. Patient needs strong encouragement with IS. WBC elevated at 14 and CRP is 3.3. Concern for possible psoas mass or hematoma as noted on CT. Patient is off antibiotics. Patient is afebrile. Patient sodium bicarb being discontinued. Will discuss with ID about treatment plan moving forward. Patient will be going to [facility] once stabilized and discharged. Review of systems: Constitutional: No reports of fatigue, fever, or chills Cardiovascular: No reports of chest pain or palpitations Respiratory: No reports of shortness of breath or cough GI: No reports of nausea, vomiting, or diarrhea, reports abdominal distention, no worse : No reports of dysuria or retention Neurovascular: Reports generalized weakness All medications have been reviewed Objective - Vital Signs Vital signs: Vital Signs Temp 98.3 F 05/14/21 06:58 Pulse 94 05/14/21 08:00 Resp 20 05/14/21 08:00 BP 112/74 05/14/21 06:58 Pulse Ox 96 05/14/21 06:58 Intake & Output 05/13/21 05/14/21 05/14/21 18:59 06:59 18:59 Intake Total 50 360 Output Total 400 Balance 50 -40 Weight 71.5 kg Intake: Intake, IV Titration 50 Amount cefTRIAXone 1 gm In 50 Sodium Chloride 0.9% 50 ml @ 100 mls/hr IVPB BID [facility] Rx#:[id number] Oral 360 Output: Urine 400 Other: Voiding Method Indwelling Catheter Indwelling Catheter Indwelling Catheter - Exam Gen: This is a 70-year-old male awake, alert and oriented 3. Temp is 98F, pulse 93, respirations are 20, blood pressure is 115/77, oxygen saturation is 96% on room air. HEENT: Head is atraumatic, normocephalic. Pupils equal, round. Sclerae is anicteric. NECK: Supple. No JVD. No lymphadenopathy. No thyromegaly. LUNGS: Diminished breath sounds bilaterally with some scattered rhonchi noted. No intercostal retractions. HEART: S1, S2 are muffled ABDOMEN: Soft. Non-tender. distended. Bowel sounds are present. No masses. EXTREMITIES: No pedal edema. No calf tenderness. bilateral lower extremity discoloration appears chronic noted NEUROLOGICAL: Patient is awake, alert and oriented x3. diffusely weak. - Labs CBC & Chem 7: 05/14/21 05:32 05/14/21 05:32 Labs: Abnormal Lab Results - Last 24 Hours (Table) 05/13/21 05/14/21 05/14/21 Range/Units 10:26 05:32 05:32 WBC 14.66 H (4.50-10.00) X 10*3/uL RBC 3.69 L (4.40-5.60) X 10*6/uL Hgb 11.3 L (13.0-17.0) g/dL Hct 35.3 L (39.6-50.0) % RDW 15.8 H (11.5-14.5) % Immature Gran # 0.32 H (0.00-0.04) X 10*3/uL Neutrophils # 9.65 H (1.80-7.70) X 10*3/uL Monocytes # 1.16 H (0.20-1.00) X 10*3/uL Basophils # 0.14 H (0.00-0.10) X 10*3/uL Sodium 130 L 131 L (137-145) mmol/L BUN 40 H 40 H (9-20) mg/dL Creatinine 1.50 H 1.57 H (0.66-1.25) mg/dL Glucose 137 H (74-99) mg/dL C-Reactive Protein 3.3 H (<1.0) mg/dL Microbiology - Last 24 Hours (Table) 05/11/21 11:55 Anaerobic Culture - Preliminary Paracentesis Fluid 05/11/21 22:30 Urine Culture - Final Urine,Voided 05/11/21 11:55 Gram Stain - Preliminary Paracentesis Fluid Body Fluid Culture - Preliminary Assessment and Plan Assessment: Abdominal pain and tenderness, possible spontaneous bacterial peritonitis Decompensated liver cirrhosis, newly diagnosed with ascites and portal hypertension Possible psoas hematoma Odette glabrata and possible fungal urinary tract infection acute kidney injury with chronic kidney disease, stage III baseline Hypovolemic hyponatremia Chronic obstructive pulmonary disease History of alcoholism Hypertension history of nicotine dependence elevated alkaline phosphatase Elevated serum bilirubin No code Recommendations and discussion: Recommend continue current medications, management, and symptomatic treatment. Nephrology along with infectious disease following closely. Patient continues to be weak and PT/OT working with the patient and will be returning to [facility] once stabilized and discharged. Infectious disease following closely and patient is off antibiotics and being closely monitored. Patient continues with abdominal distention but is soft and nontender on palpation. Patient will need outpatient follow-up with GI as he may likely need palliative paracentesis for recurrent ascites. Patient to continue on oral Lasix and Aldactone and sodium bicarb discontinued and nephrology following closely. He should also continue with fluid restrictions of 1200 ml per day. Due to multiple complex medical iss ues prognosis remains guarded. Will repeat cbc and monitor closely. Possible discharge to ECF in 24 hours.
[2021-05-15 07:15] LABS: Basophils # (A) 0.1 k/uL (0-0.2); Basophils % (A) 1 %; Eosinophils # (A) 0.1 k/uL (0-0.7); Eosinophils % (A) 1 %; HGB 11.8 gm/dL (13.0-17.5); Lymphocytes # (A) 3.2 k/uL (1.0-4.8); Lymphocytes % (A) 22 %; MCH 32.2 pg (25.0-35.0); MCV 100.6 fL (80.0-100.0); Macrocytosis Slight; Mean Platelet Volume 7.3; Monocytes # (A) 0.7 k/uL (0-1.0); Monocytes % (A) 5 %; Neutrophils % (A) 69 %; Platelet Count 444 k/uL (150-450); RBC 3.68 m/uL (4.30-5.90); RDW 15.3 % (11.5-15.5); WBC 14.5 k/uL (3.8-10.6)
[2021-05-15] MEDS: FOLIC ACID 1 MG TAB PO SCH (09:19)
[2021-05-15] MEDS: PANTOPRAZOLE 40 MG TABLET PO SCH (09:19)
[2021-05-15] MEDS: THIAMINE 100 MG TAB PO SCH (09:20)
[2021-05-15] MEDS: FUROSEMIDE 20 MG TAB PO SCH (09:21)
[2021-05-15] MEDS: SPIRONOLACTONE 25 MG TAB PO SCH (09:31)
--- NOTE | 2021-05-15 14:14 | PN ---
PROGRESS NOTE Patient is seen for followup for acute kidney injury, urine retention and hyponatremia. Patient's sodium has improved staying at about 131-130 mEq/L. Serum creatinine down to 1.57 from 1.7 mg/dL. Patient is currently being considered for discharge. EXAMINATION: Today blood pressure 126/81, heart rate 95 per minute. He is afebrile. Examination of the heart S1, S2. Examination of the lungs, bilateral breath sounds are heard. Abdomen is soft, nontender. Examination of the lower extremities shows no evidence of edema. [employer] exam grossly intact. LABS: From 05/14/2021, sodium 131, potassium 4.8, BUN 40, creatinine 1.57, hemoglobin 11.3 g/dL. ASSESSMENT: 1. Acute kidney injury, prerenal and associated with urine retention, currently improved, serum creatinine down to 1.5. 2. Chronic liver disease. 3. Hyponatremia, initially hypovolemic and then maintained on low-dose loop diuretics. Serum sodium staying at 130-131. I will continue with the current dose of oral Lasix at 20 mg daily. 4. Chronic liver disease with portal hypertension and ascites status post paracentesis. PLAN: Continue off sodium bicarb. Continue with current dose of Lasix. Monitor labs as outpatient. Continue with Lou catheter. MMODL / IJN: [id number] /
--- NOTE | 2021-05-15 15:15 | P.PN ---
Subjective Progress Note Date: 05/15/21 This is a 70-year-old male who was recently admitted with abdominal pain along with tenderness and initially suspected to have spontaneous bacterial peritonitis and infectious disease is following closely. Patient underwent IR guided abdominal paracentesis yesterday with approximately 8.2 L of serous fluid removed and specimen was sent to the lab. Patient received albumin prior to and post the procedure. Multiple medical consultations including nephrology, infectious disease following closely. Patient had a repeat urinalysis with urine culture and awaiting for finalization to determine possible discharge antibiotics or antifungal needs. Appreciate input and recommendations from infectious disease. Patient continues on 1200 mL fluid restrictions along with IV ceftriaxone and most recent indwelling Lou catheter has been changed. Patient does have a history of chronic indwelling Lou catheter. Patient underwent CT abdomen. White blood count is 13.9 with hemoglobin of 10.6. Ascitic fluid from paracentesis sent for fluid analysis and awaiting for finalization along with repeat urinalysis. Patient to continue with fluid restrictions of 1200 mL's per day. Patient is also maintained on Lasix and Aldactone along with sodium bicarb tablets and will continue. Social work also following as patient is a resident at [facility] and lanced to return there once stabilized and discharged. 05/13/2021 Patient is seen and evaluated in follow up currently working with PT/OT and continues to be weak. Patient denies any chest pain or shortness of breath. Patient with repeat urine culture remaining negative and now off antibiotics with ID following closely. Nephrology following as well. Patient abdomen distended but soft and patient denies pain. Patient chest xray shows improvement in aeration and residual basilar atelectasis. Encouraged incentive spirometer. WBC trending down Will repeat am labs. Lasix oral dose decreased to 20 mg daily and continued on aldactone. 05/14/2021 Patient is seen this morning and sleeping but arousable. Patient continues to be weak. ID and nephrology following and recommend to continue with current dosing of lasix and aldactone. Patient denies any shortness of breath. Patient needs strong encouragement with IS. WBC elevated at 14 and CRP is 3.3. Concern for possible psoas mass or hematoma as noted on CT. Patient is off antibiotics. Patient is afebrile. Patient sodium bicarb being discontinued. Will discuss with ID about treatment plan moving forward. Patient will be going to [facility] once stabilized and discharged. 05/15/2021 Patient is seen and evaluated and follow-up this morning. Patient continues on oral Lasix along with spironolactone and will continue. Infectious disease along with nephrology following. Patient is maintained off antibiotic therapy. Patient remains afebrile. White blood count today is 14.5 with hemoglobin of 11.8. Patient continues with abdominal distention although denies any pain on palpation. Patient is to return to [facility] once authorization is obtained. Social work following closely and awaiting authorization. Encourage incentive spirometer use and encourage oral intake. Will continue to monitor closely. Review of systems: Constitutional: No reports of fatigue, fever, or chills Cardiovascular: No reports of chest pain or palpitations Respiratory: No reports of shortness of breath or cough GI: No reports of nausea, vomiting, or diarrhea, reports abdominal distention, no worse : No reports of dysuria or retention Neurovascular: Reports generalized weakness All medications have been reviewed Active Medications Acetaminophen (Acetaminophen Tab 325 Mg Tab) 650 mg PO Q6HR PRN PRN Reason: Mild Pain or Fever > 100.5 Last Admin: 05/15/21 12:17 Dose: 650 mg Documented by: Albuterol/Ipratropium (Ipratropium-Albuterol 3 Ml Neb) 3 ml INHALATION RT-Q4H PRN PRN Reason: Shortness Of Breath Last Admin: 05/02/21 08:59 Dose: 3 ml Documented by: Folic Acid (Folic Acid 1 Mg Tab) 1 mg PO DAILY [facility] Last Admin: 05/15/21 09:19 Dose: 1 mg Documented by: Furosemide (Furosemide 20 Mg Tab) 20 mg PO DAILY [facility] Last Admin: 05/15/21 09:21 Dose: 20 mg Documented by: Naloxone HCl (Naloxone 0.4 Mg/Ml 1 Ml Vial) 0.2 mg IV Q2M PRN PRN Reason: Opioid Reversal Pantoprazole Sodium (Pantoprazole 40 Mg Tablet) 40 mg PO DAILY [facility] Last Admin: 05/15/21 09:19 Dose: 40 mg Documented by: Spironolactone (Spironolactone 25 Mg Tab) 50 mg PO DAILY [facility] Last Admin: 05/15/21 09:31 Dose: 50 mg Documented by: Thiamine HCl (Thiamine 100 Mg Tab) 100 mg PO DAILY [facility] Last Admin: 05/15/21 09:20 Dose: 100 mg Documented by: Objective - Vital Signs Vital signs: Vital Signs Temp 98 F 05/15/21 12:03 Pulse 97 05/15/21 12:27 Resp 18 05/15/21 12:03 BP 123/80 05/15/21 12:03 Pulse Ox 98 05/15/21 12:03 Intake & Output 05/14/21 05/15/21 05/15/21 18:59 06:59 18:59 Intake Total 600 Output Total 400 Balance 600 -400 Weight 68.5 kg Intake: Oral 600 Output: Urine 400 Other: Voiding Method Indwelling Catheter Indwelling Catheter Indwelling Catheter # Bowel Movements 0 - Exam Gen: This is a 70-year-old male awake, alert and oriented 3. Temp is 98F, pulse 97, respirations are 18, blood pressure is 123/80, oxygen saturation is 98% on room air. HEENT: Head is atraumatic, normocephalic. Pupils equal, round. Sclerae is anicteric. NECK: Supple. No JVD. No lymphadenopathy. No thyromegaly. LUNGS: Diminished breath sounds bilaterally with some scattered rhonchi noted. No intercostal retractions. HEART: S1, S2 are muffled ABDOMEN: Soft. Non-tender. distended. Bowel sounds are present. No masses. EXTREMITIES: No pedal edema. No calf tenderness. bilateral lower extremity discoloration appears chronic noted NEUROLOGICAL: Patient is awake, alert and oriented x3. diffusely weak. - Labs CBC & Chem 7: 05/15/21 05:56 05/14/21 05:32 Labs: Abnormal Lab Results - Last 24 Hours (Table) 05/15/21 Range/Units 05:56 WBC 14.5 H (3.8-10.6) k/uL RBC 3.68 L (4.30-5.90) m/uL Hgb 11.8 L (13.0-17.5) gm/dL Hct 37.0 L (39.0-53.0) % MCV 100.6 H (80.0-100.0) fL Neutrophils # 10.0 H (1.3-7.7) k/uL Microbiology - Last 24 Hours (Table) 05/11/21 11:55 Anaerobic Culture - Final Paracentesis Fluid 05/11/21 11:55 Gram Stain - Final Paracentesis Fluid Body Fluid Culture - Final Assessment and Plan Assessment: Abdominal pain and tenderness, possible spontaneous bacterial peritonitis Decompensated liver cirrhosis, newly diagnosed with ascites and portal hypertension Possible right psoas hematoma Odette glabrata and possible fungal urinary tract infection acute kidney injury with chronic kidney disease, stage III baseline Hypovolemic hyponatremia Chronic obstructive pulmonary disease History of alcoholism Hypertension history of nicotine dependence elevated alkaline phosphatase Elevated serum bilirubin No code Recommendations and discussion: Recommend continue current medications, management, and symptomatic treatment. Nephrology along with infectious disease following closely. Patient continues to be weak and PT/OT working with the patient and will be returning to [facility] once stabilized and discharged. Insurance requiring authorization to return to ECF and social work following an authorization has been submitted and awaiting for approval. Infectious disease following closely and patient is off antibiotics and being closely monitored. Patient continues with abdominal distention but is soft and nontender on palpation. Patient will need outpatient follow-up with GI as he may likely need palliative paracentesis for recurrent ascites. Patient to continue on oral Lasix and Aldactone and nephrology following closely. Patient is to continue with fluid restrictions of 1200 ml per day. Due to multiple complex medical issues prognosis remains guarded. Will repeat cbc and BMP and monitor closely.
--- NOTE | 2021-05-15 16:34 | PN ---
PROGRESS NOTE DATE OF SERVICE: 05/15/2021 REASON FOR FOLLOWUP: 1. Leukocytosis. 2. Right small hematoma. INTERVAL HISTORY: Patient remains to be afebrile. The patient is breathing comfortably. The patient denies having any chest pain. No shortness of breath. No cough. No abdominal pain. No vomiting or diarrhea. PHYSICAL EXAMINATION: Blood pressure 130/80 with a pulse of 97, temperature 98. He is 98% on room air. General description is an elderly male lying in bed in no distress. Respiratory system: Unlabored breathing. Clear to auscultation anteriorly. Heart S1, S2. Regular rate and rhythm. Abdomen soft, no tenderness. LABS: Hemoglobin 11.8, white count 14.5. DIAGNOSTIC IMPRESSION: 1. Patient with a positive urine culture with Odette glabrata possible catheter associated. Repeat urine culture has been negative no need for antibiotic on discharge. 2. Patient with elevated white count could be related to hematoma, not behaving as an abscess and can be monitored closely. No need for antibiotic on discharge. MMODL / IJN: [id number] /
[2021-05-16] MEDS: ACETAMINOPHEN TAB 325 MG TAB PO PRN ×2 (01:17→16:14)
[2021-05-16 07:56] LABS: Basophils # (A) 0.1 k/uL (0-0.2); Basophils % (A) 1 %; Eosinophils # (A) 0.2 k/uL (0-0.7); Eosinophils % (A) 1 %; HCT 38.4 % (39.0-53.0); HGB 12.3 gm/dL (13.0-17.5); Lymphocytes # (A) 3.7 k/uL (1.0-4.8); Lymphocytes % (A) 23 %; MCH 32.5 pg (25.0-35.0); MCHC 32.1 g/dL (31.0-37.0); MCV 101.1 fL (80.0-100.0); Macrocytosis Slight; Mean Platelet Volume 6.9; Monocytes # (A) 0.8 k/uL (0-1.0); Monocytes % (A) 5 %; Neutrophils # (A) 11.1 k/uL (1.3-7.7); Neutrophils % (A) 68 %; Platelet Count 484 k/uL (150-450); RDW 15.4 % (11.5-15.5); WBC 16.2 k/uL (3.8-10.6)
[2021-05-16 08:08] LABS: African American GFR (CKD) 60 (>60 ml/min/1.73 sqM); Anion Gap 9 mmol/L; Blood Urea Nitrogen 36 mg/dL (9-20); Calcium 9.1 mg/dL (8.4-10.2); Carbon Dioxide 20 mmol/L (22-30); Chloride 101 mmol/L (98-107); Glucose 94 mg/dL (74-99); Non-African American GFR(CKD) 52 (>60 ml/min/1.73 sqM); Potassium 4.5 mmol/L (3.5-5.1); Sodium 130 mmol/L (137-145)
[2021-05-16] MEDS: SPIRONOLACTONE 25 MG TAB PO SCH (08:13)
[2021-05-16] MEDS: THIAMINE 100 MG TAB PO SCH (08:13)
[2021-05-16] MEDS: PANTOPRAZOLE 40 MG TABLET PO SCH (08:13)
[2021-05-16] MEDS: FOLIC ACID 1 MG TAB PO SCH (08:13)
[2021-05-16] MEDS: FUROSEMIDE 20 MG TAB PO SCH (08:13)
[2021-05-16 08:26] LABS: C Reactive Protein 2.6 mg/dL (<1.0)
--- NOTE | 2021-05-16 09:38 | P.PN ---
Subjective Progress Note Date: 05/16/21 Principal diagnosis: this is 70-year-old male seen for acute kidney injury, Hyponatremia, chronic kidney disease stage III. This Was Deemed to Be from paracentesis and hypovolemiahe had Is also known with a computed tomography scan showingbilateral nephrolithiasis nonobstructing, but with stable left-sided hydronephrosis rule out stricture or stenosis. a follow-up computed tomography scan dated 05/11/2021 showed some increase in the left-sided hydronephrosis compared tocomputed tomography scan performed on 04/28/2021. Also was found to have moderate sized right retroperitoneal intramuscular hematoma in the right eyelid source muscle He is known with history of alcohol is, came in with abdominal pain. Currently his on Lasix 20 mg and spironolactone 50 daily. Urine output is documented at 400 mL for the last 3 days early today on exam he is awake alert oriented but profoundly weak but not sit up even with help. Denies any nausea vomiting diarrhea abdominal pain no fever chills cough. Appetite is fair Objective - Vital Signs Vital signs: Vital Signs Temp 98.3 F 05/16/21 07:15 Pulse 104 H 05/16/21 07:15 Resp 17 05/16/21 07:15 BP 107/70 05/16/21 07:15 Pulse Ox 96 05/16/21 07:15 Intake & Output 05/15/21 05/16/21 05/16/21 18:59 06:59 18:59 Intake Total 222 Output Total 400 Balance -400 222 Intake: Oral 222 Output: Urine 400 Other: Voiding Method Indwelling Catheter Indwelling Catheter examination is awake alert oriented comfortable. No asterixis HEENT exam no JVP neck is supple no facial asymmetry Lungs are clear to auscultation good air entry bilaterally Heart sounds unremarkable for any murmur rub gallop Abdomen soft nontender nondistended. Extremity exam reveals no edema Neurologically awake alert oriented 3 no asterixis - Labs CBC & Chem 7: 05/16/21 07:33 05/16/21 07:33 Labs: Abnormal Lab Results - Last 24 Hours (Table) 05/16/21 05/16/21 Range/Units 07:33 07:33 WBC 16.2 H (3.8-10.6) k/uL RBC 3.80 L (4.30-5.90) m/uL Hgb 12.3 L (13.0-17.5) gm/dL Hct 38.4 L (39.0-53.0) % MCV 101.1 H (80.0-100.0) fL Plt Count 484 H (150-450) k/uL Neutrophils # 11.1 H (1.3-7.7) k/uL Sodium 130 L (137-145) mmol/L Carbon Dioxide 20 L (22-30) mmol/L BUN 36 H (9-20) mg/dL Creatinine 1.38 H (0.66-1.25) mg/dL C-Reactive Protein 2.6 H (<1.0) mg/dL Microbiology - Last 24 Hours (Table) 05/11/21 11:55 Anaerobic Culture - Final Paracentesis Fluid 05/11/21 11:55 Gram Stain - Final Paracentesis Fluid Body Fluid Culture - Final Assessment and Plan Assessment: impression 1.hyponatremia secondary to liver disease. Currently he seems to be dry and likely hypovolemic based on clinical assessment. 2. Acute kidney injury, creatinine peaked at 1.8 on 05/08/2021 and currently is 1.38.the etiology may be the left hydronephrosis, although the computed tomography scan report shows worsening between 04/28/[address]21 CT to 05/11/2021 CT. 3. Mild degree of non-gap acidosis this morning bicarb dropped from 25- 20.etiology is not clear at this time 4. History of alcoholism.LFTs is improving as of 05/11/2021 but no LFTs done since then. Ammonia is low. Recommendation 1. Hold diuretics for right now and watch and reintroduce as necessary 2. Will watch the bicarb. 3. Check liver function tests
--- NOTE | 2021-05-16 20:10 | PN ---
PROGRESS NOTE DATE OF SERVICE: 05/16/2021 This 70-year-old gentleman who was admitted with abdominal pain and tenderness, possible spontaneous bacterial peritonitis, also history of ascites. The patient is being closely monitored. No chest pain. No palpitations. No fever. Awaiting preauthorization ECF rehab. PHYSICAL EXAMINATION: Alert and oriented x2. Pulse 104, blood pressure 107/70, respirations 17, temperature 98.2, pulse ox 98% on room air. HEENT: Conjunctivae normal. Oral mucosa moist. NECK: No jugular venous distention. No lymph node enlargement. CARDIOVASCULAR: S1, S2, muffled. No S3, no S4, RESPIRATORY: Diminished breath sounds at the bases. A few scattered rhonchi. ABDOMEN: Soft, nontender. LEGS: No edema, no swelling. NERVOUS SYSTEM: No focal deficits. LAB STUDIES: WBC 16, hemoglobin 10.2, sodium 130. ASSESSMENT: 1. Abdominal pain and tenderness, possible spontaneous bacterial peritonitis. 2. Decompensated liver cirrhosis, newly diagnosed with ascites and portal hypertension. 3. Possible right psoas hematoma. 4. Odette glabrata, possible fungal UTI. 5. Acute kidney injury with chronic kidney disease stage 3 baseline. 6. Hypovolemic hyponatremia. 7. Chronic obstructive pulmonary disease. 8. History of alcoholism. 9. Hypertension. 10.History of nicotine dependence. 11.Elevated alkaline phosphatase. 12.Elevated serum bilirubin. 13.NO CODE, NO CPR, NO VENT. RECOMMENDATIONS AND DISCUSSION: I recommend to continue current management, continue symptomatic treatment. Repeat labs. Otherwise, continue with current medication. Closely follow with Infectious Disease. Prognosis guarded. The patient is NO CODE. Possible ECF rehab once the preauthorization process is completed. Further recommendations to follow. MMODL / IJN: [id number] /
--- NOTE | 2021-05-16 20:19 | PN ---
PROGRESS NOTE REASON FOR FOLLOWUP: Leukocytosis and positive urine cultures. INTERVAL HISTORY: Patient is afebrile. The patient is breathing comfortably. Has been complaining of pain mostly right upper abdominal area. No nausea, vomiting. No chest pain, shortness of breath or cough. No worsening diarrhea. PHYSICAL EXAMINATION: Blood pressure 107/70 with a pulse of 104. Temperature 98.3. He is 96% on room air. General description is an elderly male lying in bed in no distress. Respiratory system: Unlabored breathing. Clear to auscultation anteriorly. Heart S1, S2. Regular rate and rhythm. Abdomen: Soft, tender in the right upper quadrant area. No guarding. No rigidity. Extremities are no edema of the feet. LABS: Hemoglobin is 12, white count 16.2, BUN of 36, creatinine is 1.38. Did have multiple that has been negative. Urine has been negative. DIAGNOSTIC IMPRESSION AND PLAN: Patient with leukocytosis, multifactorial, possible right hematoma. Clinically not behaving as an abscess. However worsening white count is concerning. We will repeat cultures. empirically add Zosyn and monitor clinical course closely. If any worsening, may need a repeat CT scan. Continue supportive care. MMODL / IJN: [id number] /
[2021-05-17] MEDS: PIPERACILLIN-TAZOBACTAM 3.375 GM in SODIUM CHLORIDE 0.9% 100 ML IVPB SCH ×3 (00:04→17:35)
[2021-05-17] MEDS: THIAMINE 100 MG TAB PO SCH (08:00)
[2021-05-17] MEDS: ACETAMINOPHEN TAB 325 MG TAB PO PRN ×3 (08:00→20:44)
[2021-05-17] MEDS: FOLIC ACID 1 MG TAB PO SCH (08:00)
[2021-05-17] MEDS: PANTOPRAZOLE 40 MG TABLET PO SCH (08:00)
--- NOTE | 2021-05-17 08:35 | P.PN ---
Subjective Progress Note Date: 05/17/21 Principal diagnosis: This is 70-year-old male seen for acute kidney injury, Hyponatremia, chronic kidney disease stage III is known with alcohol use he was admitted with abdominal pain Hyponatremia deemed to be from paracentesis and hypovolemia. additionally computed tomography scan showed bilateral nephrolithiasis, with stable left-sided hydronephrosis rule out stricture or stenosis. a follow-up computed tomography scan dated 05/11/2021 showed some increase in the left-sided hydronephrosis compared to computed tomography scan performed on 04/28/2021. Also was found to have moderate sized right retroperitoneal intramuscular hematoma in the right eyelid source muscle He was on Lasix and spironolactone that was discontinued yesterday because of volume depletion. Urine output is documented at 400 mL for the last 3 days early today on exam he is awake alert oriented but profoundly weak but not sit up even with help. Denies any nausea vomiting diarrhea abdominal pain no fever chills cough. Appetite is fair Objective - Vital Signs Vital signs: Vital Signs Temp 98 F 05/17/21 08:10 Pulse 100 05/17/21 08:10 Resp 16 05/17/21 08:10 BP 102/69 05/17/21 08:10 Pulse Ox 99 05/17/21 08:10 Intake & Output 05/16/21 05/17/21 05/17/21 18:59 06:59 18:59 Intake Total 250 544 Balance 250 544 Weight 67.5 kg Intake: Intake, IV Titration 100 Amount Piperacillin-Tazobactam 3 100 .375 gm In Sodium Chloride 0.9% 100 ml @ 25 mls/hr IVPB Q8HR [facility], [facility]–1983 Rx# :[id number] Oral 250 444 Other: Voiding Method Indwelling Catheter Indwelling Catheter examination is awake alert oriented comfortable. No asterixis HEENT exam no JVP neck is supple no facial asymmetry Lungs are clear to auscultation good air entry bilaterally Heart sounds unremarkable for any murmur rub gallop Abdomen soft nontender nondistended. Extremity exam reveals no edema Neurologically awake alert oriented 3 no asterixis - Labs CBC & Chem 7: 05/16/21 07:33 05/16/21 07:33 Labs: Abnormal Lab Results - Last 24 Hours (Table) 05/16/21 05/16/21 Range/Units 07:33 16:57 C-Reactive Protein 2.6 H 2.5 H (<1.0) mg/dL Assessment and Plan Assessment: impression 1.Hyponatremia secondary to liver disease, volume depletion from paracentesis and diuresis. Currently he seems to be dry and likely hypovolemic based on clinical assessment. Off off on Aldactone and Lasix as of 05/16/2021. Last today pending sodium is 1:30 stable yesterday and creatinine is 1.38 improved yesterday 2. Acute kidney injury, creatinine peaked at 1.8 on 05/08/2021 and currently is 1.38 as of yesterday.the etiology may be the left hydronephrosis, the computed tomography scan report shows worsening between 04/28/2021 CT to 05/11/2021 CT. 3. Mild degree of non-gap acidosis, bicarb dropped from 25-20.etiology is not clear at this time it today's labs are pending 4. History of alcoholism.LFTs is improving as of 05/11/2021 but no LFTs done since then. Ammonia is low. Recommendation 1. Hold diuretics for right now and watch and reintroduce as necessary 2. Will watch the bicarb. 3. Check liver function tests 4. Strict I's and O's. I spoke to the nursing staff. Patient has a Lou catheter. There is 500 mL of urine and there but it is not clear when it was empty
[2021-05-17 11:19] LABS: Basophils # (A) 0.16 X 10*3/uL (0.00-0.10); Eosinophils # (A) 0.21 X 10*3/uL (0.04-0.35); Eosinophils % (A) 1.3 %; HGB 11.8 g/dL (13.0-17.0); Lymphocytes # (A) 3.88 X 10*3/uL (0.90-5.00); Lymphocytes % (A) 23.6 %; MCH 31.6 pg (27.0-32.0); MCHC 32.8 g/dL (32.0-37.0); MCV 96.5 fL (80.0-97.0); Mean Platelet Volume 9.8 fL (9.5-12.2); Monocytes % (A) 7.3 %; Neutrophils # (A) 10.65 X 10*3/uL (1.80-7.70); Neutrophils % (A) 64.7 %; Platelet Count 431 X 10*3/uL (140-440); RBC 3.73 X 10*6/uL (4.40-5.60); RDW 15.2 % (11.5-14.5); WBC 16.44 X 10*3/uL (4.50-10.00)
[2021-05-17 12:43] LABS: African American GFR (CKD) 53.9 (60.0-200.0); Albumin 2.9 g/dL (3.80-4.90); Albumin/Globulin Ratio 1.16 (1.60-3.17); Anion Gap 8.6 mmol/L (4.00-12.00); BUN/Creat Ratio 23.33 Ratio (12.00-20.00); Calcium 8.9 mg/dL (8.7-10.3); Carbon Dioxide 23.4 mmol/L (21.6-31.8); Globulin 2.5 g/dL (1.6-3.3); Non-African American GFR(CKD) 46.5 (60.0-200.0); Potassium 4.6 mmol/L (3.5-5.5); Total Bilirubin 1.5 mg/dL (0.3-1.2); Total Protein 5.4 g/dL (6.2-8.2)
--- NOTE | 2021-05-17 23:55 | PN ---
PROGRESS NOTE DATE OF SERVICE: 05/17/2021 REASON FOR FOLLOWUP: Leukocytosis. INTERVAL HISTORY: The patient is afebrile, has been breathing comfortably. Still complaining of some abdominal pain ( ), decreased intensity. No chest pain, shortness of breath or cough. PHYSICAL EXAMINATION: Blood pressure 120/77 with a pulse of 99, temperature 98.3. He is 96% on room air. General description is an elderly male lying in bed in no distress. Respiratory system: Unlabored breathing, clear to auscultation anteriorly. Heart S1, S2. Regular rate and rhythm. Abdomen soft, no tenderness. LABS: Hemoglobin is 11.8, white count 16.4, BUN of 35, creatinine 1.5, ( ) 0.34. Blood culture repeat has been negative so far. DIAGNOSTIC IMPRESSION AND PLAN: Patient with elevated white count in this patient did not have any obvious focus, complaining of some abdominal pain and question of right ( ) hematoma with the previous concern for slight worsening. Zosyn was added, however, has not made any difference to his elevated white count and culture has been negative. Will repeat his CBC tomorrow. If still has worsening white count, may benefit from CT of abdomen and pelvis. Continue supportive care. MMODL / IJN: [id number] /
[2021-05-18] MEDS: PIPERACILLIN-TAZOBACTAM 3.375 GM in SODIUM CHLORIDE 0.9% 100 ML IVPB SCH ×3 (00:24→15:29)
[2021-05-18 06:44] LABS: Appearance,Urine Clear (Clear); Bacteria,Urine Rare /hpf; Bilirubin,Urine Negative (Negative); Blood,Urine Large (Negative); Color,Urine Yellow; Glucose,Urine (UA) Negative (Negative); Ketones,Urine Negative (Negative); Leukocyte Esterase,Urine Large (Negative); Nitrite,Urine Negative (Negative); PH, Urine 6.5 (5.0-8.0); Protein,Urine Trace (Negative); RBC,Urine 149 /hpf (0-5); Urobilinogen,Urine <2.0 mg/dL (<2.0); WBC,Urine 43 /hpf (0-5)
[2021-05-18] MEDS: FOLIC ACID 1 MG TAB PO SCH (07:54)
[2021-05-18] MEDS: THIAMINE 100 MG TAB PO SCH (07:54)
[2021-05-18] MEDS: PANTOPRAZOLE 40 MG TABLET PO SCH (07:54)
[2021-05-18] MEDS: ACETAMINOPHEN TAB 325 MG TAB PO PRN ×3 (07:55→21:02)
--- NOTE | 2021-05-18 08:40 | P.PN ---
Subjective Progress Note Date: 05/18/21 Principal diagnosis: This is 70-year-old male seen for acute kidney injury, Hyponatremia, chronic kidney disease stage III, has liver disease is known with alcohol use he was admitted with abdominal pain Hyponatremia deemed to be from paracentesis and hypovolemia. additionally computed tomography scan showed bilateral nephrolithiasis, with stable left-sided hydronephrosis rule out stricture or stenosis. a follow-up computed tomography scan dated 05/11/2021 showed some increase in the left-sided hydronephrosis compared to computed tomography scan performed on 04/28/2021. Also was found to have moderate sized right retroperitoneal intramuscular hematoma in the right psoas muscle He was on Lasix and spironolactone that was discontinued because of volume depletion. Urine output is documented 116 0 mL he is awake alert oriented but profoundly weak but not sit up even with help. Denies any nausea vomiting diarrhea abdominal pain no fever chills cough. Appetite is fair Objective - Vital Signs Vital signs: Vital Signs Temp 97.8 F 05/18/21 07:44 Pulse 88 05/18/21 07:44 Resp 16 05/18/21 07:44 BP 122/81 05/18/21 07:44 Pulse Ox 93 L 05/18/21 07:44 Intake & Output 05/17/21 05/18/21 05/18/21 18:59 06:59 18:59 Output Total 720 440 Balance -720 -440 Weight 69 kg Output: Urine 720 440 Other: Voiding Method Indwelling Catheter Incontinent Indwelling Catheter examination is awake alert oriented comfortable. No asterixis HEENT exam no JVP neck is supple no facial asymmetry Lungs are clear to auscultation good air entry bilaterally Heart sounds unremarkable for any murmur rub gallop Abdomen soft nontender nondistended. Extremity exam reveals no edema Neurologically awake alert oriented 3 no asterixis - Labs CBC & Chem 7: 05/17/21 06:38 05/17/21 06:38 Labs: Abnormal Lab Results - Last 24 Hours (Table) 05/16/21 05/17/21 05/17/21 Range/Units 16:57 06:38 06:38 WBC 16.44 H (4.50-10.00) X 10*3/uL RBC 3.73 L (4.40-5.60) X 10*6/uL Hgb 11.8 L (13.0-17.0) g/dL Hct 36.0 L (39.6-50.0) % RDW 15.2 H (11.5-14.5) % Immature Gran # 0.34 H (0.00-0.04) X 10*3/uL Neutrophils # 10.65 H (1.80-7.70) X 10*3/uL Monocytes # 1.20 H (0.20-1.00) X 10*3/uL Basophils # 0.16 H (0.00-0.10) X 10*3/uL Sodium 133 L (135-145) mmol/L BUN 35.0 H (9.0-27.0) mg/dL Est GFR (CKD-EPI)AfAm 53.9 L (60.0-200.0) Est GFR (CKD-EPI)NonAf 46.5 L (60.0-200.0) BUN/Creatinine Ratio 23.33 H (12.00-20.00) Ratio Total Bilirubin 1.5 H (0.3-1.2) mg/dL Alkaline Phosphatase 581 H (41-126) U/L Total Protein 5.4 L (6.2-8.2) g/dL Albumin 2.90 L (3.80-4.90) g/dL Albumin/Globulin Ratio 1.16 L (1.60-3.17) g/dL Procalcitonin 0.34 H (0.02-0.09) ng/mL Urine Protein (Negative) Urine Blood (Negative) Ur Leukocyte Esterase (Negative) Urine RBC (0-5) /hpf Urine WBC (0-5) /hpf Urine Bacteria (None) /hpf 05/18/21 Range/Units 06:00 WBC (4.50-10.00) X 10*3/uL RBC (4.40-5.60) X 10*6/uL Hgb (13.0-17.0) g/dL Hct (39.6-50.0) % RDW (11.5-14.5) % Immature Gran # (0.00-0.04) X 10*3/uL Neutrophils # (1.80-7.70) X 10*3/uL Monocytes # (0.20-1.00) X 10*3/uL Basophils # (0.00-0.10) X 10*3/uL Sodium (135-145) mmol/L BUN (9.0-27.0) mg/dL Est GFR (CKD-EPI)AfAm (60.0-200.0) Est GFR (CKD-EPI)NonAf (60.0-200.0) BUN/Creatinine Ratio (12.00-20.00) Ratio Total Bilirubin (0.3-1.2) mg/dL Alkaline Phosphatase (41-126) U/L Total Protein (6.2-8.2) g/dL Albumin (3.80-4.90) g/dL Albumin/Globulin Ratio (1.60-3.17) g/dL Procalcitonin (0.02-0.09) ng/mL Urine Protein Trace H (Negative) Urine Blood Large H (Negative) Ur Leukocyte Esterase Large H (Negative) Urine RBC 149 H (0-5) /hpf Urine WBC 43 H (0-5) /hpf Urine Bacteria Rare H (None) /hpf Microbiology - Last 24 Hours (Table) 05/16/21 16:57 Blood Culture - Preliminary Blood No Growth after 24 hours Assessment and Plan Assessment: impression 1.Hyponatremia secondary to liver disease, volume depletion from paracentesis and diuresis. Currently he seems to be dry and likely hypovolemic based on clinical assessment. Off off on Aldactone and Lasix as of 05/16/2021. labs as of yesterday sodium is improved to 133, was 1:30 previously 2. Acute kidney injury, creatinine peaked at 1.8 on 05/08/2021 down to1.38 on 05/16/2021nd has gone up to 1.5 again as of yesterday.the etiology may be the left hydronephrosis, the computed tomography scan report shows worsening between 04/28/2021 CT to 05/11/2021 CT. 3. Mild degree of non-gap acidosis, bicarbonate stable now at 23 4. History of alcoholism.LFTs is improving total bilirubin is 1.5 as of yesterday. 5. Found weakness. 6. Psoas muscle hematoma, hemoglobin stable Recommendation 1. continue to Hold diuretics for right now and watch and reintroduce as necessary 2. Strict I's and O's. I spoke to the nursing staff. Patient has a Lou catheter. 3. Possible rehab 4. Urology evaluation
[2021-05-18 08:51] LABS: Basophils # (A) 0.15 X 10*3/uL (0.00-0.10); Eosinophils # (A) 0.34 X 10*3/uL (0.04-0.35); Eosinophils % (A) 2.3 %; HCT 35.2 % (39.6-50.0); HGB 11.7 g/dL (13.0-17.0); Lymphocytes # (A) 3.55 X 10*3/uL (0.90-5.00); Lymphocytes % (A) 23.9 %; MCH 31.9 pg (27.0-32.0); MCHC 33.2 g/dL (32.0-37.0); MCV 95.9 fL (80.0-97.0); Mean Platelet Volume 9.6 fL (9.5-12.2); Monocytes # (A) 1.15 X 10*3/uL (0.20-1.00); Monocytes % (A) 7.7 %; Neutrophils # (A) 9.44 X 10*3/uL (1.80-7.70); Neutrophils % (A) 63.5 %; Platelet Count 422 X 10*3/uL (140-440); RBC 3.67 X 10*6/uL (4.40-5.60); RDW 15.4 % (11.5-14.5); WBC 14.87 X 10*3/uL (4.50-10.00)
[2021-05-18 09:35] LABS: African American GFR (CKD) 64.1 (60.0-200.0); Albumin 2.7 g/dL (3.80-4.90); Albumin/Globulin Ratio 1.08 (1.60-3.17); Anion Gap 9.7 mmol/L (4.00-12.00); BUN/Creat Ratio 23.85 Ratio (12.00-20.00); C Reactive Protein 1.8 mg/dL (0.0-0.8); Calcium 8.4 mg/dL (8.7-10.3); Carbon Dioxide 21.3 mmol/L (21.6-31.8); Globulin 2.5 g/dL (1.6-3.3); Non-African American GFR(CKD) 55.3 (60.0-200.0); Potassium 4.4 mmol/L (3.5-5.5); Total Bilirubin 1.5 mg/dL (0.3-1.2); Total Protein 5.2 g/dL (6.2-8.2)
--- NOTE | 2021-05-18 21:20 | PN ---
PROGRESS NOTE DATE OF SERVICE: 05/18/2021 REASON FOR FOLLOWUP: Leukocytosis. INTERVAL HISTORY: Patient is afebrile. He is breathing comfortably. Still complaining of some pain to the right abdominal area. The patient denies having any chest pain, shortness of breath or cough. No vomiting or diarrhea. PHYSICAL EXAMINATION: Blood pressure 168/79 with a pulse of 71, temperature 98.6. He is 94% on room air. General description is an elderly male lying in bed in no distress. Respiratory system: Unlabored breathing, clear to auscultation anteriorly. Heart S1, S2. Regular rate and rhythm. Abdomen soft, no tenderness. No guarding. No rigidity. Extremities are no edema of the feet. LABS: Hemoglobin 11.1, white count 14.7, BUN of 31, creatinine 1.3. Repeat urine is still positive. DIAGNOSTIC IMPRESSION AND PLAN: Patient with elevated white count, multifactorial. This patient did have a complicated UTI on admission with Odette glabrata. Repeat urine has been negative and no hydronephrosis on CT. Possible evidence of right small hematoma. CT will be repeated to follow up on those in the morning. Continue with Zosyn while waiting for the culture to finalize and continue supportive care. MMODL / IJN: [id number] /
--- NOTE | 2021-05-18 21:44 | P.PN ---
Subjective Progress Note Date: 05/17/21 This is a 70-year-old male who was recently admitted with abdominal pain along with tenderness and initially suspected to have spontaneous bacterial peritonitis and infectious disease is following closely. Patient underwent IR guided abdominal paracentesis yesterday with approximately 8.2 L of serous fluid removed and specimen was sent to the lab. Patient received albumin prior to and post the procedure. Multiple medical consultations including nephrology, infectious disease following closely. Patient had a repeat urinalysis with urine culture and awaiting for finalization to determine possible discharge antibiotics or antifungal needs. Appreciate input and recommendations from infectious disease. Patient continues on 1200 mL fluid restrictions along with IV ceftriaxone and most recent indwelling Lou catheter has been changed. Patient does have a history of chronic indwelling Lou catheter. Patient underwent CT abdomen. White blood count is 13.9 with hemoglobin of 10.6. Ascitic fluid from paracentesis sent for fluid analysis and awaiting for finalization along with repeat urinalysis. Patient to continue with fluid restrictions of 1200 mL's per day. Patient is also maintained on Lasix and Aldactone along with sodium bicarb tablets and will continue. Social work also following as patient is a resident at [facility] and lanced to return there once stabilized and discharged. 05/13/2021 Patient is seen and evaluated in follow up currently working with PT/OT and continues to be weak. Patient denies any chest pain or shortness of breath. Patient with repeat urine culture remaining negative and now off antibiotics with ID following closely. Nephrology following as well. Patient abdomen distended but soft and patient denies pain. Patient chest xray shows improvement in aeration and residual basilar atelectasis. Encouraged incentive spirometer. WBC trending down Will repeat am labs. Lasix oral dose decreased to 20 mg daily and continued on aldactone. 05/14/2021 Patient is seen this morning and sleeping but arousable. Patient continues to be weak. ID and nephrology following and recommend to continue with current dosing of lasix and aldactone. Patient denies any shortness of breath. Patient needs strong encouragement with IS. WBC elevated at 14 and CRP is 3.3. Concern for possible psoas mass or hematoma as noted on CT. Patient is off antibiotics. Patient is afebrile. Patient sodium bicarb being discontinued. Will discuss with ID about treatment plan moving forward. Patient will be going to [facility] once stabilized and discharged. 05/15/2021 Patient is seen and evaluated and follow-up this morning. Patient continues on oral Lasix along with spironolactone and will continue. Infectious disease along with nephrology following. Patient is maintained off antibiotic therapy. Patient remains afebrile. White blood count today is 14.5 with hemoglobin of 11.8. Patient continues with abdominal distention although denies any pain on palpation. Patient is to return to [facility] once authorization is obtained. Social work following closely and awaiting authorization. Encourage incentive spirometer use and encourage oral intake. Will continue to monitor closely. 05/17/2021 Patient is currently lying in the bed. Awake alert and oriented x3. Otherwise patient states that he could not get out of the bed and having general weakness. No fever no chills. No nausea vomiting or abdominal pain or diarrhea. Lab data showed WC 16.4 hemoglobin 11.8 and platelets 431 Sodium 133 potassium 4.6 BUN 35 and creatinine 1.5 procalcitonin level was 0.34 currently maintained antibiotics in the form of Zosyn. Nephrology and ID is on board. Review of systems: Constitutional: No reports of fatigue, fever, or chills Cardiovascular: No reports of chest pain or palpitations Respiratory: No reports of shortness of breath or cough GI: No reports of nausea, vomiting, or diarrhea, reports abdominal distention, no worse : No reports of dysuria or retention Neurovascular: Reports generalized weakness All medications have been reviewed Objective - Vital Signs Vital signs: Vital Signs Temp 98 F 05/17/21 08:10 Pulse 100 05/17/21 08:10 Resp 16 05/17/21 08:10 BP 102/69 05/17/21 08:10 Pulse Ox 99 05/17/21 08:10 Intake & Output 05/16/21 05/17/21 05/17/21 18:59 06:59 18:59 Intake Total 250 544 Balance 250 544 Weight 67.5 kg Intake: Intake, IV Titration 100 Amount Piperacillin-Tazobactam 3 100 .375 gm In Sodium Chloride 0.9% 100 ml @ 25 mls/hr IVPB Q8HR [facility] Rx# :[id number] Oral 250 444 Other: Voiding Method Indwelling Catheter Indwelling Catheter Indwelling Catheter - Exam - Exam Gen: This is a 70-year-old male awake, alert and oriented 3. Temp is 98F, pulse 97, respirations are 18, blood pressure is 123/80, oxygen saturation is 98% on room air. HEENT: Head is atraumatic, normocephalic. Pupils equal, round. Sclerae is anicteric. NECK: Supple. No JVD. No lymphadenopathy. No thyromegaly. LUNGS: Diminished breath sounds bilaterally with some scattered rhonchi noted. No intercostal retractions. HEART: S1, S2 are muffled ABDOMEN: Soft. Non-tender. distended. Bowel sounds are present. No masses. EXTREMITIES: No pedal edema. No calf tenderness. bilateral lower extremity discoloration appears chronic noted NEUROLOGICAL: Patient is awake, alert and oriented x3. diffusely weak. - Labs CBC & Chem 7: 05/18/21 05:28 05/18/21 05:28 Labs: Abnormal Lab Results - Last 24 Hours (Table) 05/16/21 05/17/21 Range/Units 16:57 06:38 WBC 16.44 H (4.50-10.00) X 10*3/uL RBC 3.73 L (4.40-5.60) X 10*6/uL Hgb 11.8 L (13.0-17.0) g/dL Hct 36.0 L (39.6-50.0) % RDW 15.2 H (11.5-14.5) % Immature Gran # 0.34 H (0.00-0.04) X 10*3/uL Neutrophils # 10.65 H (1.80-7.70) X 10*3/uL Monocytes # 1.20 H (0.20-1.00) X 10*3/uL Basophils # 0.16 H (0.00-0.10) X 10*3/uL C-Reactive Protein 2.5 H (<1.0) mg/dL Assessment and Plan Assessment: Abdominal pain and tenderness, possible spontaneous bacterial peritonitis Decompensated liver cirrhosis, newly diagnosed with ascites and portal hypertension Possible right psoas hematoma Odette glabrata and possible fungal urinary tract infection acute kidney injury with chronic kidney disease, stage III baseline Hypovolemic hyponatremia Chronic obstructive pulmonary disease History of alcoholism Hypertension history of nicotine dependence elevated alkaline phosphatase Elevated serum bilirubin No code Recommendations and discussion: Patient will be continued on antibiotics in the form of Zosyn. Diuretics on hold due to hyponatremia. Patient continues to be weak and PT/OT working with the patient and will be returning to [place] once stabilized and discharged. Insurance requiring authorization to return to [facility] and social work following an authorization has been submitted and awaiting for approval. Infectious disease following closely and patient is off antibiotics and being closely monitored. Patient continues with abdominal distention but is soft and nontender on palpation. Patient will need outpatient follow-up with GI as he may likely need palliative paracentesis for recurrent ascites. Patient is to continue with fluid restrictions of 1200 ml per day. Due to multiple complex medical issues prognosis remains guarded. Will repeat cbc and BMP and monitor closely. Time with Patient: Greater than 30
--- NOTE | 2021-05-18 21:57 | P.PN ---
Subjective Progress Note Date: 05/18/21 This is a 70-year-old male who was recently admitted with abdominal pain along with tenderness and initially suspected to have spontaneous bacterial peritonitis and infectious disease is following closely. Patient underwent IR guided abdominal paracentesis yesterday with approximately 8.2 L of serous fluid removed and specimen was sent to the lab. Patient received albumin prior to and post the procedure. Multiple medical consultations including nephrology, infectious disease following closely. Patient had a repeat urinalysis with urine culture and awaiting for finalization to determine possible discharge antibiotics or antifungal needs. Appreciate input and recommendations from infectious disease. Patient continues on 1200 mL fluid restrictions along with IV ceftriaxone and most recent indwelling Lou catheter has been changed. Patient does have a history of chronic indwelling Lou catheter. Patient underwent CT abdomen. White blood count is 13.9 with hemoglobin of 10.6. Ascitic fluid from paracentesis sent for fluid analysis and awaiting for finalization along with repeat urinalysis. Patient to continue with fluid restrictions of 1200 mL's per day. Patient is also maintained on Lasix and Aldactone along with sodium bicarb tablets and will continue. Social work also following as patient is a resident at [facility] and lanced to return there once stabilized and discharged. 05/13/2021 Patient is seen and evaluated in follow up currently working with PT/OT and continues to be weak. Patient denies any chest pain or shortness of breath. Patient with repeat urine culture remaining negative and now off antibiotics with ID following closely. Nephrology following as well. Patient abdomen distended but soft and patient denies pain. Patient chest xray shows improvement in aeration and residual basilar atelectasis. Encouraged incentive spirometer. WBC trending down Will repeat am labs. Lasix oral dose decreased to 20 mg daily and continued on aldactone. 05/14/2021 Patient is seen this morning and sleeping but arousable. Patient continues to be weak. ID and nephrology following and recommend to continue with current dosing of lasix and aldactone. Patient denies any shortness of breath. Patient needs strong encouragement with IS. WBC elevated at 14 and CRP is 3.3. Concern for possible psoas mass or hematoma as noted on CT. Patient is off antibiotics. Patient is afebrile. Patient sodium bicarb being discontinued. Will discuss with ID about treatment plan moving forward. Patient will be going to [facility] once stabilized and discharged. 05/15/2021 Patient is seen and evaluated and follow-up this morning. Patient continues on oral Lasix along with spironolactone and will continue. Infectious disease along with nephrology following. Patient is maintained off antibiotic therapy. Patient remains afebrile. White blood count today is 14.5 with hemoglobin of 11.8. Patient continues with abdominal distention although denies any pain on palpation. Patient is to return to [facility] once authorization is obtained. Social work following closely and awaiting authorization. Encourage incentive spirometer use and encourage oral intake. Will continue to monitor closely. 05/17/2021 Patient is currently lying in the bed. Awake alert and oriented x3. Otherwise patient states that he could not get out of the bed and having general weakness. No fever no chills. No nausea vomiting or abdominal pain or diarrhea. Lab data showed WC 16.4 hemoglobin 11.8 and platelets 431 Sodium 133 potassium 4.6 BUN 35 and creatinine 1.5 procalcitonin level was 0.34 currently maintained antibiotics in the form of Zosyn. Nephrology and ID is on board. 05/18/2021 Patient is currently lying in the bed comfortably. Awake alert and oriented x3. No complaints of abdominal pain. No nausea vomiting or diarrhea. No fever no chills. WBC count is trending down to 14.87 Hemoglobin 11.7 Sodium 133 potassium 4.4 BUN 31 creatinine 1.3. Review of systems: Constitutional: No reports of fatigue, fever, or chills Cardiovascular: No reports of chest pain or palpitations Respiratory: No reports of shortness of breath or cough GI: No reports of nausea, vomiting, or diarrhea, reports abdominal distention, no worse : No reports of dysuria or retention Neurovascular: Reports generalized weakness All medications have been reviewed Objective - Vital Signs Vital signs: Vital Signs Temp 98.6 F 05/18/21 19:23 Pulse 71 05/18/21 19:23 Resp 16 05/18/21 19:23 BP 116/79 05/18/21 19:23 Pulse Ox 94 L 05/18/21 19:23 Intake & Output 05/18/21 05/18/21 05/19/21 06:59 18:59 06:59 Output Total 440 551 Balance -440 -551 Weight 69 kg Output: Urine 440 550 Stool 1 Other: Voiding Method Incontinent Incontinent Indwelling Catheter Indwelling Catheter - Exam - Exam Gen: This is a 70-year-old male awake, alert and oriented 3. Temp is 98F, pulse 97, respirations are 18, blood pressure is 123/80, oxygen saturation is 98% on room air. HEENT: Head is atraumatic, normocephalic. Pupils equal, round. Sclerae is anicteric. NECK: Supple. No JVD. No lymphadenopathy. No thyromegaly. LUNGS: Diminished breath sounds bilaterally with some scattered rhonchi noted. No intercostal retractions. HEART: S1, S2 are muffled ABDOMEN: Soft. Non-tender. distended. Bowel sounds are present. No masses. EXTREMITIES: No pedal edema. No calf tenderness. bilateral lower extremity di scoloration appears chronic noted NEUROLOGICAL: Patient is awake, alert and oriented x3. diffusely weak. - Labs CBC & Chem 7: 05/18/21 05:28 05/18/21 05:28 Labs: Abnormal Lab Results - Last 24 Hours (Table) 05/18/21 05/18/21 05/18/21 Range/Units 05:28 05:28 06:00 WBC 14.87 H (4.50-10.00) X 10*3/uL RBC 3.67 L (4.40-5.60) X 10*6/uL Hgb 11.7 L (13.0-17.0) g/dL Hct 35.2 L (39.6-50.0) % RDW 15.4 H (11.5-14.5) % Immature Gran # 0.24 H (0.00-0.04) X 10*3/uL Neutrophils # 9.44 H (1.80-7.70) X 10*3/uL Monocytes # 1.15 H (0.20-1.00) X 10*3/uL Basophils # 0.15 H (0.00-0.10) X 10*3/uL Sodium 133 L (135-145) mmol/L Carbon Dioxide 21.3 L (21.6-31.8) mmol/L BUN 31.0 H (9.0-27.0) mg/dL Est GFR (CKD-EPI)NonAf 55.3 L (60.0-200.0) BUN/Creatinine Ratio 23.85 H (12.00-20.00) Ratio Calcium 8.4 L (8.7-10.3) mg/dL Total Bilirubin 1.5 H (0.3-1.2) mg/dL Alkaline Phosphatase 539 H (41-126) U/L C-Reactive Protein 1.8 H (0.0-0.8) mg/dL Total Protein 5.2 L (6.2-8.2) g/dL Albumin 2.70 L (3.80-4.90) g/dL Albumin/Globulin Ratio 1.08 L (1.60-3.17) g/dL Urine Protein Trace H (Negative) Urine Blood Large H (Negative) Ur Leukocyte Esterase Large H (Negative) Urine RBC 149 H (0-5) /hpf Urine WBC 43 H (0-5) /hpf Urine Bacteria Rare H (None) /hpf Microbiology - Last 24 Hours (Table) 05/16/21 16:57 Blood Culture - Preliminary Blood No Growth after 48 hours 05/18/21 06:00 Urine Culture - Preliminary Urine,Voided Assessment and Plan Assessment: Abdominal pain and tenderness, possible spontaneous bacterial peritonitis Decompensated liver cirrhosis, newly diagnosed with ascites and portal hypertension Possible right psoas hematoma Odette glabrata and possible fungal urinary tract infection acute kidney injury with chronic kidney disease, stage III baseline Hypovolemic hyponatremia Chronic obstructive pulmonary disease History of alcoholism Hypertension history of nicotine dependence elevated alkaline phosphatase Elevated serum bilirubin No code Recommendations and discussion: Patient will be continued on antibiotics in the form of Zosyn. Diuretics on hold due to hyponatremia. Patient continues to be weak and PT/OT working with the patient and will be [facility] once stabilized and discharged. Insurance requiring authorization to return to [facility] and social work following an authorization has been submitted and awaiting for approval. Infectious disease following closely and patient is off antibiotics and being closely monitored. Patient continues with abdominal distention but is soft and nontender on palpation. Patient will need outpatient follow-up with GI as he may likely need palliative paracentesis for recurrent ascites. Patient is to continue with fluid restrictions of 1200 ml per day. Due to multiple complex medical issues prognosis remains guarded. Will repeat cbc and BMP and monitor closely. Time with Patient: Greater than 30
[2021-05-19] MEDS: PIPERACILLIN-TAZOBACTAM 3.375 GM in SODIUM CHLORIDE 0.9% 100 ML IVPB SCH ×3 (00:31→16:09)
[2021-05-19] MEDS: IOPAMIDOL CONTRAST (ORAL USE) VIAL PO PRN ×2 (07:22→08:25)
[2021-05-19] MEDS ORDERED: SIMETHICONE 80 MG CHEWABLE PO PRN (08:54)
[2021-05-19 09:20] LABS: Basophils # (A) 0.13 X 10*3/uL (0.00-0.10); Basophils % (A) 0.9 %; Eosinophils # (A) 0.39 X 10*3/uL (0.04-0.35); Eosinophils % (A) 2.7 %; HCT 35.1 % (39.6-50.0); HGB 11.3 g/dL (13.0-17.0); Lymphocytes # (A) 2.96 X 10*3/uL (0.90-5.00); Lymphocytes % (A) 20.8 %; MCH 30.3 pg (27.0-32.0); MCHC 32.2 g/dL (32.0-37.0); MCV 94.1 fL (80.0-97.0); Mean Platelet Volume 9.6 fL (9.5-12.2); Monocytes # (A) 1.11 X 10*3/uL (0.20-1.00); Monocytes % (A) 7.8 %; Neutrophils # (A) 9.39 X 10*3/uL (1.80-7.70); Neutrophils % (A) 66.2 %; Platelet Count 449 X 10*3/uL (140-440); RBC 3.73 X 10*6/uL (4.40-5.60); RDW 15.4 % (11.5-14.5); WBC 14.21 X 10*3/uL (4.50-10.00)
--- NOTE | 2021-05-19 09:38 | CT ---
EXAMINATION TYPE: CT abdomen pelvis wo con DATE OF EXAM: 05/19/2021 HISTORY: leukocytosis, right psoas hematoma , hydronephrosis CT DLP: 627.8 mGycm. Automated Exposure Control for Dose Reduction was Utilized. TECHNIQUE: CT scan of the abdomen and pelvis is performed with oral but without IV contrast. COMPARISON: CT abdomen and pelvis May 11, 2021 and older studies. FINDINGS: Within the limitations of a non-contrast study, the following observations are made. LUNG BASES: Persistent small to moderate size left greater than right pleural effusions with associat ed compressive atelectasis. Some coronary artery calcifications are redemonstrated. LIVER/GB: Slightly small liver with surrounding ascites more prominent than most recent CT. No biliar y dilatation. PANCREAS: No significant abnormality is seen. SPLEEN: Mild splenomegaly at 13.9 cm long axis coronal image 85 with more prominent surrounding ascit es. ADRENALS: No significant abnormality is seen. KIDNEYS: Bilateral nonobstructing renal calculi redemonstrated. Persistent central prominence left ki dney could reflect [id number] hydronephrosis has been seen back several studies back through 20 17 suggesting UPJ stricture or stenosis is no hydroureter. BOWEL: No significant abnormality is seen. GENITAL ORGANS: Uterus surgically absent. LYMPH NODES: No greater than 1cm abdominal or pelvic lymph nodes are appreciated. OSSEOUS STRUCTURES: No significant abnormality is seen. OTHER: Persistent heterogeneous hypodense appearance to right psoas muscle axial image 96 suspect hem atoma not significantly changed in size from most recent CT. Small to moderate amount of intra-abdomi nal ascites. Moderate amount of pelvic ascites. Moderate calcified plaque of the aorta extends into b ranch vessels with slight ectasia redemonstrated. IMPRESSION: Recurrent small to moderate amount of intra-abdominal and pelvic ascites. Stable small ri ght psoas hematoma.
[2021-05-19] MEDS: FOLIC ACID 1 MG TAB PO SCH (09:41)
[2021-05-19] MEDS: THIAMINE 100 MG TAB PO SCH (09:43)
[2021-05-19] MEDS: PANTOPRAZOLE 40 MG TABLET PO SCH (09:43)
[2021-05-19] MEDS: ACETAMINOPHEN TAB 325 MG TAB PO PRN ×2 (13:13→21:56)
[2021-05-19 13:41] LABS: African American GFR (CKD) 58.6 (60.0-200.0); Anion Gap 8.2 mmol/L (4.00-12.00); C Reactive Protein 2.1 mg/dL (0.0-0.8); Calcium 8.5 mg/dL (8.7-10.3); Carbon Dioxide 22.8 mmol/L (21.6-31.8); Non-African American GFR(CKD) 50.5 (60.0-200.0); Potassium 4.3 mmol/L (3.5-5.5)
--- NOTE | 2021-05-19 14:30 | PN ---
PROGRESS NOTE Patient is seen for followup for acute kidney injury and hyponatremia. He has underlying chronic liver disease and also has chronic urine retention and chronic left hydronephrosis which had seen to be slightly worse, but serum creatinine has improved and currently at about 1.3 mg/dL. PHYSICAL EXAMINATION: On examination today, blood pressure 127/87, heart rate 86 per minute, he is afebrile. Examination of the heart S1, S2. Examination of the lungs, bilateral breath sounds are heard. Decreased breath sounds at bases. Abdomen is soft, nontender. Examination of lower extremities shows no evidence of edema. COURTESY DRIVER exam grossly intact. LABS: On 05/18/2021 show sodium 133, potassium 4.1, serum creatinine 1.3, hemoglobin 11.7 g/dL. ASSESSMENT: 1. Acute kidney injury associated with urine retention, some element of obstructive uropathy, currently improved. CT scan shows chronic left hydro. Serum creatinine has improved. Patient will need to see Urology as outpatient. I doubt that any intervention will be done this hospitalization since renal function is actually better. Continue with the Lou catheter for now. 2. Hyponatremia secondary to liver disease, volume depletion paracentesis, currently improved and stable, maintained on low-dose Lasix. 3. Mild non gap metabolic acidosis, currently stable. 4. Chronic liver disease secondary to ETOH abuse. 5. Psoas muscle hematoma, currently stable. PLAN: Continue with indwelling Lou catheter. See Urology as outpatient. Currently off Lasix. Continue to monitor serum sodium levels. Patient will need urology follow up as outpatient. MMODL / IJN: [id number] /
--- NOTE | 2021-05-19 15:59 | P.PN ---
Subjective Progress Note Date: 05/19/21 Principal diagnosis: Ascites and cirrhosis of the liver This is a 70-year-old pleasant white male who was admitted to the hospital for complaints of abdominal pain along the right lower abdomen and flank area. Patient also noted to have a abdominal distention. He was recently hospitalized earlier this month with altered mental status and has a history of heavy alcohol abuse and recently was drinking up until his past hospitalization. During his last hospitalization he was noted to have elevated LFTs and mild amount of ascites. He has a past medical history of heavy alcohol abuse for more than 50 years duration drinking several pints of alcohol and a daily basis. Patient reports falling on his right side about 2 months ago and has significant bruising. He had a CT of the abdomen in the emergency department as part of his workup that showed new cirrhosis with evidence of underlying portal venous hypertension. The patient has remained in the hospital and was considering possible spontaneous bacterial peritonitis, however peritoneal fluid culture was negative. He is remained on IV antibiotics for underlying UTI and being followed by infectious disease. He is awaiting insurance authorization for transfer to rehab. His last paracentesis was 05/11/21 with 8.2 L of fluid removed. He is currently not on any diuretics, he is being followed closely by nephrology. Patient states overall he just doesn't feel well and he does not want to go home, he does not want to go to rehab, he wants to stay in the hospital. Discussed with patient poor prognosis related to end-stage liver disease and to consider palliative care. He has been afebrile, mild tenderness to right side of abdomen. He denies any nausea or vomiting. Objective - Vital Signs Vital signs: Vital Signs Temp 98.3 F 05/19/21 07:31 Pulse 86 05/19/21 07:31 Resp 16 05/19/21 07:31 BP 127/87 05/19/21 07:31 Pulse Ox 98 05/19/21 07:08 Intake & Output 05/18/21 05/19/21 05/19/21 18:59 06:59 18:59 Output Total 551 200 Balance -551 -200 Weight 68.5 kg Output: Urine 550 200 Uretheral (Lou) 200 Stool 1 Other: Voiding Method Incontinent Indwelling Catheter Indwelling Catheter Indwelling Catheter # Bowel Movements 1 - Exam General appearance: The patient is alert, oriented, appears in no acute distress. HET: Head is normocephalic and atraumatic. Conjunctiva pink. Sclera anicteric. Neck: Supple without lymphadenopathy. Abdomen: Soft, mild tenderness, mildly distended with bowel sounds. No guarding or rigidity. Extremities: Normal skin color and turgor. Pedal edema bilaterally. Skin: No rashes, no jaundice Neurological: No focal deficits. Alert and oriented 3. - Labs CBC & Chem 7: 05/19/21 05:20 05/19/21 05:20 Labs: Abnormal Lab Results - Last 24 Hours (Table) 05/19/21 Range/Units 05:20 WBC 14.21 H (4.50-10.00) X 10*3/uL RBC 3.73 L (4.40-5.60) X 10*6/uL Hgb 11.3 L (13.0-17.0) g/dL Hct 35.1 L (39.6-50.0) % RDW 15.4 H (11.5-14.5) % Plt Count 449 H (140-440) X 10*3/uL Immature Gran # 0.23 H (0.00-0.04) X 10*3/uL Neutrophils # 9.39 H (1.80-7.70) X 10*3/uL Monocytes # 1.11 H (0.20-1.00) X 10*3/uL Eosinophils # 0.39 H (0.04-0.35) X 10*3/uL Basophils # 0.13 H (0.00-0.10) X 10*3/uL Microbiology - Last 24 Hours (Table) 05/16/21 16:57 Blood Culture - Preliminary Blood No Growth after 48 hours 05/18/21 06:00 Urine Culture - Preliminary Urine,Voided Assessment and Plan (1) Ascites Narrative/Plan: 70-year-old male with a medical history significant for alcohol abuse who presented to the emergency department with complaints of abdominal pain. Patient was recently hospitalized earlier this month with aspiration pneumonia and gastroenterology had seen patient for altered mental status and elevated LFTs. LFTs were consistent with alcoholic liver disease. During his previous hospitalization he was noted to have mild ascites, he was started on Lasix 40 mg daily. He is currently on Lasix 40 mg daily and Aldactone [address] of the abdomen showed new cirrhosis with evidence of underlying portal venous hypertension is there is moderate to large amount of intraperitoneal ascites and mild splenomegaly. Likely reactive small to moderate left greater than right pleural effusions. Mild pelvic soft tissue anasarca noted. Findings are consistent with decompensated alcoholic cirrhosis of the liver. We'll plan on paracentesis. Patient is status post paracentesis Current Visit: Yes Status: Acute Code(s): R18.8 - OTHER ASCITES SNOMED Code(s): 501745909 (2) Cirrhosis of liver Narrative/Plan: Discussed with patient that he has decompensated cirrhosis of the liver due to alcoholism. He has a poor prognosis, he is not a candidate for any abdominal surgical intervention such as PEG tube placement for decreased appetite and nutritional status. Discussed with patient he will need outpatient paracentesis in follow-up with gastroenterology. Discussed with patient and he may want to consider palliative care due to poor prognosis, decompensated cirrhosis of the liver, and unwillingness to eat. Encourage patient to continue with Ensure, small frequent meals. Try to eat at least half of his meal at a time. Current Visit: Yes Status: Acute Code(s): K74.60 - UNSPECIFIED CIRRHOSIS OF LIVER SNOMED Code(s): 16526037 (3) Alcohol abuse Current Visit: No Status: Acute Code(s): F10.10 - ALCOHOL ABUSE, UNCOMPLICATED SNOMED Code(s): 04292124 (4) Hyponatremia Current Visit: Yes Status: Acute Code(s): E87.1 - HYPO-OSMOLALITY AND HYPO NATREMIA SNOMED Code(s): 17968193 Plan: 1. Continue symptomatic and supportive care 2. Low sodium diet 3. Alcohol abstinence 4. Keep on a 1200 mL fluid restriction 5. Continue with recommendations from nephrology 6. Again discussed with patient possibility of palliative care related to poor prognosis with end-stage liver disease with ascites, patient will need outpatient follow-up for palliative paracentesis Thank you for this consultation, the patient is cleared from gastroenterology for discharge Dr. Pascual Roldan I agree with the dictator's note, documented as a scribe by Ronit Swan.
--- NOTE | 2021-05-19 19:52 | PN ---
PROGRESS NOTE DATE OF SERVICE: 05/19/2021 REASON FOR FOLLOWUP: Elevated white count, possible complicated UTI. INTERVAL HISTORY: The patient is afebrile. He is breathing comfortably. The patient denies having any chest pain, shortness of breath or cough. Abdominal pain is currently controlled. No vomiting or diarrhea. PHYSICAL EXAMINATION: Blood pressure 113/77, pulse of 95, temperature 98.5. He is 99% on room air. GENERAL DESCRIPTION: General description is an elderly male lying in bed in no distress. RESPIRATORY SYSTEM: Unlabored breathing. Clear to auscultation anteriorly. HEART: S1, S2. Regular rate and rhythm. ABDOMEN: Soft. No tenderness. LABS: Hemoglobin is 14.2, BUN of 28, creatinine is 1.4. Repeat urine is so far negative. Blood culture negative. CT of abdomen and pelvis did show stable right psoas hematoma. No worsening. DIAGNOSTIC IMPRESSION AND PLAN: Patient with leukocytosis which is likely multifactorial, possible complicated urinary tract infection. He did have hydronephrosis on the left side. There was concern about right psoas hematoma. However, no worsening has been noticed. The patient seems to be clinically stable. White count is trending down on Zosyn. If the urine culture remains negative for any resistant pathogen, may consider a short course of oral Augmentin on discharge and close outpatient followup. MMODL / IJN: [id number] /
--- NOTE | 2021-05-19 22:58 | P.PN ---
Subjective Progress Note Date: 05/19/21 Principal diagnosis: acute cirrhosis and ascites He continues to complain of moderate generalized abdominal pain. Denies fever, chills, shortness of breath. He underwent repeat CT abd/pevlis which showed small ascites. Gastroenterology following and recommending palliative parac entesis as needed. He continues on zosyn for complicated UTI per ID. Objective - Vital Signs Vital signs: Vital Signs Temp 97.8 F 05/19/21 19:45 Pulse 100 05/19/21 19:45 Resp 16 05/19/21 19:45 BP 120/84 05/19/21 19:45 Pulse Ox 95 05/19/21 19:45 Intake & Output 05/19/21 05/19/21 05/20/21 06:59 18:59 06:59 Output Total 200 Balance -200 Weight 68.5 kg Output: Urine 200 Uretheral (Lou) 200 Other: Voiding Method Indwelling Catheter Indwelling Catheter # Bowel Movements 1 - Exam General: well nourished, well developed, NAD. Vitals reviewed Lungs: normal respiratory effort, no wheezes or rales CV: Regular rate and rhythm, no murmur. Peripheral pulses 2+ Abdomen: soft, distended, no organomegaly. Generalized tenderness Skin: warm and dry. - Labs CBC & Chem 7: 05/19/21 05:20 05/19/21 05:20 Labs: Abnormal Lab Results - Last 24 Hours (Table) 05/19/21 05/19/21 Range/Units 05:20 05:20 WBC 14.21 H (4.50-10.00) X 10*3/uL RBC 3.73 L (4.40-5.60) X 10*6/uL Hgb 11.3 L (13.0-17.0) g/dL Hct 35.1 L (39.6-50.0) % RDW 15.4 H (11.5-14.5) % Plt Count 449 H (140-440) X 10*3/uL Immature Gran # 0.23 H (0.00-0.04) X 10*3/uL Neutrophils # 9.39 H (1.80-7.70) X 10*3/uL Monocytes # 1.11 H (0.20-1.00) X 10*3/uL Eosinophils # 0.39 H (0.04-0.35) X 10*3/uL Basophils # 0.13 H (0.00-0.10) X 10*3/uL Sodium 132 L (135-145) mmol/L BUN 28.0 H (9.0-27.0) mg/dL Est GFR (CKD-EPI)AfAm 58.6 L (60.0-200.0) Est GFR (CKD-EPI)NonAf 50.5 L (60.0-200.0) Calcium 8.5 L (8.7-10.3) mg/dL C-Reactive Protein 2.1 H (0.0-0.8) mg/dL Microbiology - Last 24 Hours (Table) 05/16/21 16:57 Blood Culture - Preliminary Blood No Growth after 72 hours 05/18/21 06:00 Urine Culture - Final Urine,Voided Assessment and Plan Plan: Continue to hold lasix and aldactone due to hyponatremia. Continue fluid restrictions. Discussed option of palliative care with pt. Add simethicone for cramping, anticipate discharge to rehab. Continue with zosyn inpatient and transition to augmentin
[2021-05-20] MEDS: PIPERACILLIN-TAZOBACTAM 3.375 GM in SODIUM CHLORIDE 0.9% 100 ML IVPB SCH ×4 (00:29→23:40)
[2021-05-20] MEDS: PANTOPRAZOLE 40 MG TABLET PO SCH (09:09)
[2021-05-20] MEDS: FOLIC ACID 1 MG TAB PO SCH (09:09)
[2021-05-20] MEDS: THIAMINE 100 MG TAB PO SCH (09:09)
--- NOTE | 2021-05-20 10:47 | P.PN ---
Subjective Progress Note Date: 05/20/21 Principal diagnosis: Ascites and cirrhosis of the liver The patient is a 70-year-old male who has a history of alcoholic cirrhosis of the liver with ascites. He is also admitted with a non-complicated urinary tract infection and is receiving IV antibiotics. Patient still complains of some mild discomfort in the right side of his abdomen. Bowel movements are normal. He denies any nausea or vomiting. Last paracentesis was on 05/11/2021 area of recent CAT scan shows small amount of fluid. Patient is awaiting placement in rehab. Objective - Vital Signs Vital signs: Vital Signs Temp 97.3 F L 05/20/21 07:25 Pulse 100 05/20/21 07:25 Resp 16 05/20/21 07:25 BP 115/79 05/20/21 07:25 Pulse Ox 98 05/20/21 07:25 Intake & Output 05/19/21 05/20/21 05/20/21 18:59 06:59 18:59 Output Total 300 Balance -300 Weight 68 kg Output: Urine 300 Other: Voiding Method Indwelling Catheter Indwelling Catheter Indwelling Catheter - Exam General appearance: The patient is alert, oriented, appears in no acute distress. HET: Head is normocephalic and atraumatic. Conjunctiva pink. Sclera anicteric. Neck: Supple without lymphadenopathy. Abdomen: Soft, mild tenderness, mildly distended with bowel sounds. No guarding or rigidity. Extremities: Normal skin color and turgor. Pedal edema bilaterally. Skin: No rashes, no jaundice Neurological: No focal deficits. Alert and oriented 3. - Labs CBC & Chem 7: 05/19/21 05:20 05/19/21 05:20 Labs: Abnormal Lab Results - Last 24 Hours (Table) 05/19/21 05/19/21 Range/Units 05:20 05:20 WBC 14.21 H (4.50-10.00) X 10*3/uL RBC 3.73 L (4.40-5.60) X 10*6/uL Hgb 11.3 L (13.0-17.0) g/dL Hct 35.1 L (39.6-50.0) % RDW 15.4 H (11.5-14.5) % Plt Count 449 H (140-440) X 10*3/uL Immature Gran # 0.23 H (0.00-0.04) X 10*3/uL Neutrophils # 9.39 H (1.80-7.70) X 10*3/uL Monocytes # 1.11 H (0.20-1.00) X 10*3/uL Eosinophils # 0.39 H (0.04-0.35) X 10*3/uL Basophils # 0.13 H (0.00-0.10) X 10*3/uL Sodium 132 L (135-145) mmol/L BUN 28.0 H (9.0-27.0) mg/dL Est GFR (CKD-EPI)AfAm 58.6 L (60.0-200.0) Est GFR (CKD-EPI)NonAf 50.5 L (60.0-200.0) Calcium 8.5 L (8.7-10.3) mg/dL C-Reactive Protein 2.1 H (0.0-0.8) mg/dL Microbiology - Last 24 Hours (Table) 05/18/21 06:00 Urine Culture - Preliminary Urine,Voided Yeast species 05/16/21 16:57 Blood Culture - Preliminary Blood No Growth after 72 hours Assessment and Plan (1) Ascites Narrative/Plan: 70-year-old male with a medical history significant for alcohol abuse who presented to the emergency department with complaints of abdominal pain. Patient was recently hospitalized earlier this month with aspiration pneumonia and gastroenterology had seen patient for altered mental status and elevated LFTs. LFTs were consistent with alcoholic liver disease. During his previous hospitalization he was noted to have mild ascites, he was started on Lasix 40 mg daily. He is currently on Lasix 40 mg daily and Aldactone [address] of the abdomen showed new cirrhosis with evidence of underlying portal venous hypertension is there is moderate to large amount of intraperitoneal ascites and mild splenomegaly. Likely reactive small to moderate left greater than right pleural effusions. Mild pelvic soft tissue anasarca noted. Findings are consistent with decompensated alcoholic cirrhosis of the liver. We'll plan on paracentesis. Patient is status post paracentesis Current Visit: Yes Status: Acute Code(s): R18.8 - OTHER ASCITES SNOMED Code(s): 013569517 (2) Cirrhosis of liver Narrative/Plan: Discussed with patient that he has decompensated cirrhosis of the liver due to alcoholism. He has a poor prognosis, he is not a candidate for any abdominal surgical intervention such as PEG tube placement for decreased appetite and nutritional status. Discussed with patient he will need outpatient paracentesis in follow-up with gastroenterology. Discussed with patient and he may want to consider palliative care due to poor prognosis, decompensated cirrhosis of the liver, and unwillingness to eat. Encourage patient to continue with Ensure, small frequent meals. Try to eat at least half of his meal at a time. Current Visit: Yes Status: Acute Code(s): K74.60 - UNSPECIFIED CIRRHOSIS OF LIVER SNOMED Code(s): 14307593 (3) Alcohol abuse Current Visit: No Status: Acute Code(s): F10.10 - ALCOHOL ABUSE, UNCOMPLICATED SNOMED Code(s): 08754840 (4) Hyponatremia Narrative/Plan: Nephrology on consult, following patient closely. Patient remains on fluid restriction. Current Visit: Yes Status: Acute Code(s): E87.1 - HYPO-OSMOLALITY AND HYPONATREMIA SNOMED Code(s): 83462340 Plan: 1. Continue symptomatic and supportive care 2. Low sodium diet 3. Alcohol abstinence 4. Keep on a 1200 mL fluid restriction 5. Continue with recommendations from nephrology 6. Discussed with patient possibility of palliative care related to poor prognosis with end-stage liver disease with ascites, patient will need outpatient follow-up for palliative paracentesis Thank you for this consultation, the patient is cleared from gastroenterology for discharge Dr. Pascual Roldan I agree with the dictator's note, documented as a scribe by Ronit Swan.
--- NOTE | 2021-05-20 12:28 | P.DS ---
Providers Date of admission: 04/29/21 10:52 Expected date of discharge: 05/20/21 Attending physician: Pete Pro MD Consults: 04/29/21 23:41 Consult Physician Routine Consulting Provider: Sosa Roldan Consult Reason/Comments: alcoholism, ascites Do you want consulting provider notified?: Yes, Notify in am 05/06/21 12:59 Consult Physician Routine Consulting Provider: Terry Holbrook Consult Reason/Comments: hyponatremia, renal failure Do you want consulting provider notified?: Yes 05/10/21 10:52 Consult Physician Routine Consulting Provider: Santos Shaikh Consult Reason/Comments: UTI, rule out aspiration pneumonia. Rule out SBP Do you want consulting provider notified?: Yes Primary care physician: Pete Pro MD Hospital Course: Final Diagnoses: Alcoholic hepatitis with ascites, status post paracentesis 2, large volume. Acute cystitis Hyponatremia, sodium 132, low-dose Lasix resumed Acute complicated UTI, yeast species, 1 week of Vfend per ID Psoas hematoma,Surgery reviewed CT reporting hematoma fairly small with no surgical intervention recommended. Chronic kidney disease Hospital course: This is a 70-year-old gentleman admitted with alcoholic hepatitis with ascites status post paracentesis 2.Last paracentesis 05/11/2021. Recent CT reporting reporting small lamount of fluid. Sodium up to 132. Maintained on antibiotics as per ID for acute complicated UTI. Patient will be maintained on Cipro daily for SBP prophylaxis. Patient will be discharged to [facility] today in a stable condition with guarded prognosis. - Exam General: well nourished, well developed, NAD. Vitals reviewed Lungs: normal respiratory effort, no wheezes or rales CV: Regular rate and rhythm, no murmur. Peripheral pulses 2+ Abdomen: soft, distended, no organomegaly. Generalized diffuse tenderness Skin: warm and dry. Microbiology 05/18/21 06:00 Urine,Voided Urine Culture - Preliminary Yeast species 05/16/21 16:57 Blood Blood Culture - Preliminary No Growth after 72 hours 05/11/21 11:55 Paracentesis Fluid Anaerobic Culture - Final 05/11/21 11:55 Paracentesis Fluid Gram Stain - Final 05/11/21 11:55 Paracentesis Fluid Body Fluid Culture - Final 05/11/21 22:30 Urine,Voided Urine Culture - Final 05/09/21 16:10 Urine,Clean Catch Urine Culture - Final 05/01/21 10:30 Paracentesis Fluid Anaerobic Culture - Final 05/01/21 10:30 Paracentesis Fluid Gram Stain - Final 05/01/21 10:30 Paracentesis Fluid Body Fluid Culture - Final 04/28/21 12:26 Urine,Voided Urine Culture - Final Odette glabrata The impression and plan of care has been dictated as directed. : I performed a history and examination of this patient, discussed the same with the dictator. I agree with the dictator's note ,documented as a scribe. Any additional findings or plans will be noted. Patient Condition at Discharge: Stable Plan - Discharge Summary Discharge Rx Participant: Yes New Discharge Prescriptions: New Simethicone Chew [Mylicon Chew] 40 mg PO QID PRN tab PRN Reason: Bloating Fluconazole [Diflucan] 150 mg PO DAILY #5 tab Ciprofloxacin HCl [Cipro] 250 mg PO DAILY 1 Days #30 tab Voriconazole [Vfend] 300 mg PO Q12HR #14 tablet Continue Enoxaparin [Lovenox] 40 mg SQ DAILY syringe Sodium Bicarbonate Tab 650 mg PO BID tab Folic Acid 1 mg PO DAILY #30 tablet Omeprazole 20 mg PO DAILY Acetaminophen Tab [Tylenol] 650 mg PO Q6HR PRN tab PRN Reason: Fever And/ Or Pain Thiamine [Vitamin B-1] 100 mg PO DAILY tab Multivitamins, Thera [Multivitamin (formulary)] 1 tab PO DAILY #30 tablet Ipratropium-Albuterol Nebulize [Duoneb 0.5 mg-3 mg/3 ml Soln] 3 ml INHALATION RT-Q4H PRN PRN Reason: Shortness Of Breath Ipratropium-Albuterol Nebulize [Duoneb 0.5 mg-3 mg/3 ml Soln] 3 ml INHALATION RT-Q6H Healthshake 1 can PO TID@0700,1200,1700 Changed Furosemide [Lasix] 20 mg PO DAILY #30 tablet Discharge Medication List Acetaminophen Tab [Tylenol] 650 mg PO Q6HR PRN tab 04/15/21 [Rx] Enoxaparin [Lovenox] 40 mg SQ DAILY syringe 04/15/21 [Rx] Folic Acid 1 mg PO DAILY #30 tablet 04/15/21 [Rx] Multivitamins, Thera [Multivitamin (formulary)] 1 tab PO DAILY #30 tablet 04/15/21 [Rx] Sodium Bicarbonate Tab 650 mg PO BID tab 04/15/21 [Rx] Thiamine [Vitamin B-1] 100 mg PO DAILY tab 04/15/21 [Rx] Healthshake 1 can PO TID@0700,1200,1700 04/28/21 [History] Ipratropium-Albuterol Nebulize [Duoneb 0.5 mg-3 mg/3 ml Soln] 3 ml INHALATION RT-Q4H PRN 04/28/21 [History] Ipratropium-Albuterol Nebulize [Duoneb 0.5 mg-3 mg/3 ml Soln] 3 ml INHALATION RT-Q6H 04/28/21 [History] Omeprazole 20 mg PO DAILY 04/28/21 [History] Fluconazole [Diflucan] 150 mg PO DAILY #5 tab 05/06/21 [Rx] Ciprofloxacin HCl [Cipro] 250 mg PO DAILY 1 Days #30 tab 05/20/21 [Rx] Furosemide [Lasix] 20 mg PO DAILY #30 tablet 05/20/21 [Rx] Simethicone Chew [Mylicon Chew] 40 mg PO QID PRN tab 05/20/21 [Rx] Voriconazole [Vfend] 300 mg PO Q12HR #14 tablet 05/20/21 [Rx] Follow up Appointment(s)/Referral(s): Pete Pro MD [Primary Care Provider] - 1 Week (After DC from subacute rehab) Sosa Roldan MD [STAFF PHYSICIAN] - 07/07/21 3:30 pm (Please make appointment with Mariaelena MARISCAL) Terry Holbrook DO [STAFF PHYSICIAN] - 1 Week Patient Instructions/Handouts: Ascites (DC) Activity/Diet/Wound Care/Special Instructions: CASEY: Medi 1200 mL fluid restriction, low sodium diet Alcohol abstinence CBC,BMP and Magnesium on Tuesday Discharge Disposition: TRANSFER TO SNF/ECF
--- NOTE | 2021-05-20 13:07 | PN ---
PROGRESS NOTE DATE OF SERVICE: 05/20/2021 REASON FOR FOLLOWUP VISIT: Leukocytosis, possible . INTERVAL HISTORY: The patient is afebrile, has been breathing comfortably. Denies having any chest pain, shortness of breath or cough. No abdominal pain or diarrhea. PHYSICAL EXAMINATION: Blood pressure 158/79, pulse of 100, temp 96.8. He is 98% on room air. General description is an elderly male lying in bed in no distress. Respiratory system: Unlabored breathing, clear to auscultation anteriorly. Heart S1, S2. Regular rate and rhythm. Abdomen soft, no tenderness. LABS: No new labs have been obtained today. Urine showing yeast species. DIAGNOSTIC IMPRESSION AND PLAN: Patient with elevated white count which is multifactorial in this patient who did have a urine culture positive for yeast Odette glabrata and is growing the same pathogen again. The patient did have hydronephrosis. Concern for possible urinary tract infection. May consider short course of oral on discharge. Discussed with the admitting team working on discharge and close outpatient followup. MMODL / IJN: [id number] /
--- NOTE | 2021-05-20 16:57 | PN ---
PROGRESS NOTE Patient is seen for followup for acute kidney injury, urine retention and chronic left hydronephrosis. The patient's renal function has been stable. He currently has an indwelling catheter. He also has right psoas hematoma. PHYSICAL EXAMINATION: Blood pressure is 115/79, heart rate 100 per minute. Patient is afebrile. Examination of the heart S1, S2. Examination of the lungs, bilateral breath sounds are heard. Abdomen is soft, nontender. Examination of lower extremities shows no evidence of edema. 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 LAB: Show hemoglobin 11.3, sodium 132, potassium 4.3, BUN 28, creatinine 1.4. ASSESSMENT: 1. Acute kidney injury associated with urine retention, low blood pressure, currently improved. Patient does have chronic left hydronephrosis. Renal function is stable. He will see Urology as outpatient. Continue with the Lou catheter for now. 2. Hyponatremia secondary to chronic liver disease, volume depletion, currently off Lasix. 3. Mild non gap metabolic acidosis, now stable. 4. Right psoas muscle hematoma. Currently stable. PLAN: Continue with Lou catheter. Okay for discharge. Followup with Urology as outpatient. MMODL / IJN: [id number] /
[2021-05-20] MEDS: ACETAMINOPHEN TAB 325 MG TAB PO PRN (19:37)
[2021-05-21] MEDS: PANTOPRAZOLE 40 MG TABLET PO SCH (08:07)
[2021-05-21] MEDS: FOLIC ACID 1 MG TAB PO SCH (08:07)
[2021-05-21] MEDS: THIAMINE 100 MG TAB PO SCH (08:07)
[2021-05-21] MEDS: PIPERACILLIN-TAZOBACTAM 3.375 GM in SODIUM CHLORIDE 0.9% 100 ML IVPB SCH (08:15)
--- NOTE | 2021-05-21 11:40 | P.PN ---
Subjective Progress Note Date: 05/21/21 Principal diagnosis: Ascites and cirrhosis of the liver The patient is a 70-year-old male who has a history of alcoholic cirrhosis of the liver with ascites. He is also admitted with a non-complicated urinary tract infection and is receiving IV antibiotics. Patient still complains of some mild discomfort in the right side of his abdomen but improving. Bowel movements are normal. He denies any nausea or vomiting. He has been afebrile. Last paracentesis was on 05/11/2021, recent CAT scan shows small amount of fluid. Patient is awaiting placement in rehab. Objective - Vital Signs Vital signs: Vital Signs Temp 98.3 F 05/21/21 00:40 Pulse 96 05/21/21 00:40 Resp 15 05/21/21 00:40 BP 114/85 05/21/21 00:40 Pulse Ox 95 05/21/21 00:40 Intake & Output 05/20/21 05/21/21 05/21/21 18:59 06:59 18:59 Intake Total 600 Output Total 400 200 Balance 200 -200 Weight 71 kg Intake: Oral 600 Output: Urine 400 200 Other: Voiding Method Indwelling Catheter Indwelling Catheter # Bowel Movements 1 1 - Exam General appearance: The patient is alert, oriented, appears in no acute dist ress. HET: Head is normocephalic and atraumatic. Conjunctiva pink. Sclera anicteric. Neck: Supple without lymphadenopathy. Abdomen: Soft, mild tenderness, nondistended with bowel sounds. No guarding or rigidity. Extremities: Normal skin color and turgor. Pedal edema bilaterally. Skin: No rashes, no jaundice Neurological: No focal deficits. Alert and oriented 3. - Labs CBC & Chem 7: 05/19/21 05:20 05/19/21 05:20 Labs: Microbiology - Last 24 Hours (Table) 05/18/21 06:00 Urine Culture - Final Urine,Voided Odette glabrata 05/16/21 16:57 Blood Culture - Preliminary Blood No Growth after 96 hours Assessment and Plan (1) Ascites Narrative/Plan: 70-year-old male with a medical history significant for alcohol abuse who presented to the emergency department with complaints of abdominal pain. Patient was recently hospitalized earlier this month with aspiration pneumonia and gastroenterology had seen patient for altered mental status and elevated LFTs. LFTs were consistent with alcoholic liver disease. During his previous hospitalization he was noted to have mild ascites, he was started on Lasix 40 mg daily. He is currently on Lasix 40 mg daily and Aldactone [address] of the abdomen showed new cirrhosis with evidence of underlying portal venous hypertension is there is moderate to large amount of intraperitoneal ascites and mild splenomegaly. Likely reactive small to moderate left greater than right pleural effusions. Mild pelvic soft tissue anasarca noted. Findings are consistent with decompensated alcoholic cirrhosis of the liver. We'll plan on paracentesis. Patient is status post paracentesis Current Visit: Yes Status: Acute Code(s): R18.8 - OTHER ASCITES SNOMED Code(s): 527952881 (2) Cirrhosis of liver Narrative/Plan: Discussed with patient that he has decompensated cirrhosis of the liver due to alcoholism. He has a poor prognosis, he is not a candidate for any abdominal surgical intervention such as PEG tube placement for decreased appetite and nutritional status. Discussed with patient he will need outpatient paracentesis in follow-up with gastroenterology. Discussed with patient and he may want to consider palliative care due to poor prognosis, decompensated cirrhosis of the liver, and unwillingness to eat. Encourage patient to continue with Ensure, small frequent meals. Try to eat at least half of his meal at a time. Current Visit: Yes Status: Acute Code(s): K74.60 - UNSPECIFIED CIRRHOSIS OF LIVER SNOMED Code(s): 21875674 (3) Alcohol abuse Current Visit: No Status: Acute Code(s): F10.10 - ALCOHOL ABUSE, UNCOMPLICATED SNOMED Code(s): 69167883 (4) Hyponatremia Narrative/Plan: Nephrology on consult, following patient closely. Patient remains on fluid restriction. Current Visit: Yes Status: Acute Code(s): E87.1 - HYPO-OSMOLALITY AND HYPONATREMIA SNOMED Code(s): 24486513 Plan: 1. Continue symptomatic and supportive care 2. Low sodium diet 3. Alcohol abstinence 4. Keep on a 1200 mL fluid restriction 5. Continue with recommendations from nephrology 6. Discussed with patient possibility of palliative care related to poor prognosis with end-stage liver disease with ascites, patient will need outpati ent follow-up for possible palliative paracentesis Thank you for this consultation, the patient is cleared from gastroenterology for discharge. We will sign off at this time. Dr. Pascual Roldan I agree with the dictator's note, documented as a scribe by Ronit Swan.
[2021-05-21 12:00] VITALS: BP 115/80; PULSE 67; RESP 16; TEMP 97.9
[2021-05-21] MEDS: ACETAMINOPHEN TAB 325 MG TAB PO PRN (13:17)
--- NOTE | 2021-05-21 13:27 | PN ---
PROGRESS NOTE The patient is seen for followup for chronic kidney disease and acute kidney injury. His renal function has improved. He also had hyponatremia and serum sodium is currently staying stable at 132 to 133 mEq/L. The patient had been on small dose of oral Lasix which was eventually discontinued. PHYSICAL EXAMINATION: On examination today, blood pressure 115/80, heart rate 67 per minute. He is afebrile. Examination of the heart S1, S2. Examination of the lungs, bilateral breath sounds are heard. Abdomen is soft, nontender. Examination of lower extremities shows no evidence of edema. 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 LAB: Show sodium 132, potassium 4.3, serum creatinine 1.4 as of 05/19/2021. ASSESSMENT: 1. Acute kidney injury secondary to hypotension, hypovolemia, now improved. Patient also had urine retention. 2. Chronic left hydronephrosis with stable renal function. Patient will see Urology as outpatient. Continue with indwelling Lou catheter as he also had urine retention. 3. Hyponatremia secondary to chronic liver disease, volume depletion, currently off Lasix. Sodium staying at 132-133. 4. Right psoas muscle hematoma. 5. Mild non gap metabolic acidosis. 6. 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 PLAN: Check labs in a.m. if the patient is not discharged. MMODL / IJN: [id number] /
--- NOTE | 2021-05-21 14:15 | PN ---
PROGRESS NOTE DATE OF SERVICE: 05/21/2021 REASON FOR FOLLOWUP: Leukocytosis, multifactorial and UTI. INTERVAL HISTORY: The patient is afebrile. He is breathing comfortably. Denies having any chest pain, shortness of breath, cough, abdominal pain or diarrhea. EXAMINATION: Blood pressure 115/80, with a pulse of 57, temperature is 97.9. He is 93% on room air. General description is an elderly male lying in bed in no distress. Respiratory system: Unlabored breathing, clear to auscultation anteriorly. Heart S1, S2. Regular rate and rhythm. Abdomen soft, no tenderness. Extremities: No edema of the feet. LAB: Repeat urine showing a Odette glabrata DIAGNOSTIC IMPRESSION AND PLAN: Patient with leukocytosis, multifactorial, possible component of complicated urinary tract infection, urine showing a Odette glabrata. Plan at this time is to discontinue the Zosyn. Start the patient on voriconazole for another 7-10 days and close outpatient followup. MMODL / IJN: [id number] /
[2021-05-21] MEDS ORDERED: VORICONAZOLE 200 MG TAB PO SCH (21:00)
== END 2021-05-21 17:39 | DRG 432 ==
LOC: EC 11:36 → 4SSUR 15:26 → OBSVTOIN 04-29 10:52 → 4SSUR 04-29 13:21
PROVIDERS: ADMIT Family Medicine; ATTEND Family Medicine
PROC: 0W9G3ZZ Drainage of Peritoneal Cavity, Percutaneous Approach (ICD-10-PCS; principal; 2021-05-01)
PROC: 0W9G3ZZ Drainage of Peritoneal Cavity, Percutaneous Approach (ICD-10-PCS; 2021-05-05)
PROC: 0W9G3ZZ Drainage of Peritoneal Cavity, Percutaneous Approach (ICD-10-PCS; 2021-05-11)
DX: K70.11 Alcoholic hepatitis with ascites (principal); K66.1 Hemoperitoneum; K76.7 Hepatorenal syndrome; N17.0 Acute kidney failure with tubular necrosis; E43 Unspecified severe protein-calorie malnutrition; K76.6 Portal hypertension; N13.6 Pyonephrosis; J98.11 Atelectasis; B37.49 Other urogenital candidiasis; E87.1 Hypo-osmolality and hyponatremia; E87.2 Acidosis; J90 Pleural effusion, not elsewhere classified; K70.31 Alcoholic cirrhosis of liver with ascites; N18.31 Chronic kidney disease, stage 3a; M79.81 Nontraumatic hematoma of soft tissue; Z66 Do not resuscitate; Z51.5 Encounter for palliative care; J44.9 Chronic obstructive pulmonary disease, unspecified; F10.20 Alcohol dependence, uncomplicated; F03.90 Unspecified dementia, unspecified severity, without behavioral disturbance, psychotic disturbance, mood disturbance, and anxiety; I12.9 Hypertensive chronic kidney disease with stage 1 through stage 4 chronic kidney disease, or unspecified chronic kidney disease; E83.51 Hypocalcemia; Z68.22 Body mass index [BMI] 22.0-22.9, adult; E83.42 Hypomagnesemia; T50.2X5A Adverse effect of carbonic-anhydrase inhibitors, benzothiadiazides and other diuretics, initial encounter; E86.1 Hypovolemia; E87.6 Hypokalemia; E87.70 Fluid overload, unspecified; F17.210 Nicotine dependence, cigarettes, uncomplicated; Z79.899 Other long term (current) drug therapy
CPT/HCPCS: 36415; 49083; 71045; 71046; 74176; 76705; 76770; 80048; 80053; 80074; 80076; 81001; 82042; 82140; 82150; 82570; 82945; 83605; 83615; 83690; 83735; 84145; 84156; 84157; 85025; 85027; 85610; 85730; 86140; 87040; 87070; 87075; 87086; 87205; 87324; 88108; 88305; 89050; 93005; 94640; 94760

== ENCOUNTER 2023-02-20 04:34 | Inpatient (IN) | payer MEDICARE, OTHER ==
--- NOTE | 2023-02-20 06:01 | ED ---
General Adult HPI <Flash Moses - Last Filed: 02/20/23 09:46> - General Source: EMS Mode of arrival: EMS <Nguyễn Willett - Last Filed: 02/20/23 22:40> - General Chief complaint: Fall Stated complaint: Fall, Hip Pain Time Seen by Provider: 02/20/23 04:49 - History of Present Illness Initial comments: This is a 72-year-old male who presents emergency department via EMS after a fall at his nursing facility. The patient stated he was getting up to go to the bathroom when she got stuck and he tripped, landing on the right hip. The patient did state that he had pain in the right hip as well as the left shoulder. The patient denied losing consciousness and was resting in bed comfortably. The patient denied any other acute pain or distress currently. (Nguyễn Willett) - Related Data Home Medications Medication Instructions Recorded Confirmed Omeprazole 20 mg PO DAILY 04/28/21 02/20/23 Calcium Carbonate [Tums] 1,000 mg PO Q6H PRN 10/27/21 02/20/23 Ciprofloxacin HCl [Cipro] 250 mg PO HS 10/27/21 02/20/23 Folic Acid 0.8 mg PO DAILY 10/27/21 02/20/23 ALPRAZolam [Xanax] 0.25 mg PO BID 02/20/23 02/20/23 Escitalopram [Lexapro] 20 mg PO DAILY 02/20/23 02/20/23 Ferrous Sulfate [Feosol] 325 mg PO DAILY 02/20/23 02/20/23 Furosemide [Lasix] 40 mg PO DAILY 02/20/23 02/20/23 Gabapentin [Neurontin] 400 mg PO BID@0800,1300 02/20/23 02/20/23 Gabapentin [Neurontin] 800 mg PO HS@2100 02/20/23 02/20/23 HYDROcodone/APAP 7.5-325MG [[place] 1 tab PO Q6H PRN 02/20/23 02/20/23 7.5-325] Mag Hydrox/Aluminum Hyd/Simeth 30 ml PO Q6H PRN 02/20/23 02/20/23 [Mylanta Maximum Strength Liq] Melatonin 5 mg PO HS 02/20/23 02/20/23 Morphine Sulfate ER [Ms Contin] 30 mg PO Q12HR 02/20/23 02/20/23 Potassium Chloride ER [K-Dur 10] 10 meq PO DAILY 02/20/23 02/20/23 Sodium Chloride [Saline Mist] 1 spray EA NOSTRIL Q8H PRN 02/20/23 02/20/23 Previous Rx's Medication Instructions Recorded Acetaminophen Tab [Tylenol] 650 mg PO Q6HR PRN tab 04/15/21 Multivitamins, Thera [Multivitamin 1 tab PO DAILY #30 tablet 04/15/21 (formulary)] Sodium Bicarbonate Tab 650 mg PO BID tab 04/15/21 Thiamine [Vitamin B-1] 100 mg PO DAILY tab 04/15/21 Allergies Allergy/AdvReac Type Severity Reaction Status Date / Time No Known Allergies Allergy Verified 02/20/23 11:51 Review of Systems ROS Other: All systems not noted in ROS Statement are negative. <Flash Moses - Last Filed: 02/20/23 09:46> ROS Other: All systems not noted in ROS Statement are negative. <Nguyễn Willett - Last Filed: 02/20/23 22:40> ROS Statement: Those systems with pertinent positive or pertinent negative responses have been documented in the HPI. Past Medical History Past Medical History: COPD, Hypertension Additional Past Medical History / Comment(s): Alcoholism-patient was drinking a fifth/gallon of alcohol daily until recent admission April 01, 2021; smoker; COPD; herniated discs, arrived at hospital with hudson catheter from [facility] History of Any Multi-Drug Resistant Organisms: None Reported Past Surgical History: No Surgical Hx Reported Past Anesthesia/Blood Transfusion Reactions: No Reported Reaction Past Psychological History: No Psychological Hx Reported Smoking Status: Former smoker Past Alcohol Use History: None Reported Additional Past Alcohol Use History / Comment(s): Patient was drinking a fifth / gallon daily for many years prior to recent hospital admission April 01, 2021. Per daughter. Patient was sent from hospital to [facility] for rehab. Patient was living in a home with friends, the home was raided by police for cooking meth. Pt states he has not had anyhting to drink since prior admission. Past Drug Use History: None Reported Additional Drug Use History / Comment(s): pt has previous history. - Past Family History Father Family Medical History: Hypertension Mother Additional Family Medical History / Comment(s): pt states mother has hist. of anxiety and depression. <Nguyễn Willett - Last Filed: 02/20/23 22:40> General Exam Limitations: no limitations General appearance: alert, in no apparent distress Head exam: Present: atraumatic, normocephalic, normal inspection Eye exam: Present: normal appearance, PERRL Pupils: Present: normal accommodation ENT exam: Present: normal exam, normal oropharynx, mucous membranes moist Neck exam: Present: normal inspection, full ROM Respiratory exam: Present: normal lung sounds bilaterally Cardiovascular Exam: Present: regular rate, normal rhythm, normal heart sounds GI/Abdominal exam: Present: soft, normal bowel sounds Extremities exam: Present: tenderness (Tenderness noted over the right hip with mild shortening of the right lower extremity compared to the left) Back exam: Present: normal inspection, full ROM Neurological exam: Present: alert, oriented X3, CN II-XII intact Psychiatric exam: Present: normal affect, normal mood Skin exam: Present: warm, dry <Nguyễn Willett - Last Filed: 02/20/23 22:40> Course Vital Signs 02/20/23 02/20/23 04:40 07:42 Temperature 98.2 F 98.2 F Pulse Rate 61 61 Respiratory 18 18 Rate Blood Pressure 127/74 139/86 O2 Sat by Pulse 95 100 Oximetry Medical Decision Making - Lab Data Result diagrams: 02/20/23 07:01 02/20/23 07:01 <Flash Moses - Last Filed: 02/20/23 09:46> - Lab Data Result diagrams: 02/20/23 07:01 02/20/23 07:01 <Nguyễn Willett - Last Filed: 02/20/23 22:40> - Medical Decision Making I spoke with Dr. Marquez EKG was interpreted by myself shows a sinus rhythm at 60 bpm AR interval 290 cardiac 89 QT intervals 424 QTC is 426 per patient's EKG shows no ST segment elevation or depression (Flash Moses) Was pt. sent in by a medical professional or institution (, PA, CARDIOTHORACIC PHYSIOTHERAPIST, urgent care, hospital, or residential...) When possible be specific @ -No Did you speak to anyone other than the patient for history (EMS, parent, family, police, friend...)? What history was obtained from this source @ -No Did you review nursing and triage notes (agree or disagree)? Why? @ -I reviewed and agree with nursing and triage notes Were old charts reviewed (outside hosp., previous admission, EMS record, old EKG, old radiological studies, urgent care reports/EKG's, residential records)? Report findings @ -No old charts were reviewed Differential Diagnosis (chest pain, altered mental status, abdominal pain women, abdominal pain men, vaginal bleeding, weakness, fever, dyspnea, syncope, headache, dizziness, GI bleed, back pain, seizure, CVA, palpatations, mental health)? @ -Right hip fracture, right femur fracture, left shoulder fracture EKG interpreted by me (3pts min.). @ -None X-rays interpreted by me (1pt min.). @ -X-ray of the right hip and left shoulder were obtained but were still pending at this time. CT interpreted by me (1pt min.). @ -None done U/S interpreted by me (1pt. min.). @ -None done What testing was considered but not performed or refused? (CT, X-rays, U/S, labs)? Why? @ -None What meds were considered but not given or refused? Why? @ -None Did you discuss the management of the patient with other professionals (professionals i.e. , PA, CARDIOTHORACIC PHYSIOTHERAPIST, lab, RT, psych nurse, licensed master social worker, woodworking belt sander, teacher, information assurance officer, case managers)? Give summary @ -With the surgeon on-call, Dr. Marquez was attempted to be contacted. Was smoking cessation discussed for >3mins.? @ -No Was critical care preformed (if so, how long)? @ -No Were there social determinants of health that impacted care today? How? (Homelessness, low income, unemployed, alcoholism, drug addiction, transportation, low edu. Level, literacy, decrease access to med. care, correction, rehab)? @ -No Was there de-escalation of care discussed even if they declined (Discuss DNR or withdrawal of care, Hospice)? DNR status @ -No What co-morbidities impacted this encounter? (DM, HTN, Smoking, COPD, CAD, Cancer, CVA, ARF, Chemo, Hep., AIDS, mental health diagnosis, sleep apnea, morbid obesity)? @ -None Was patient admitted / discharged? Hospital course, mention meds given and route, prescriptions, significant lab abnormalities, going to OR and other pertinent info. @ -The patient was seen and evaluated emergency department. Physical exam, the patient was resting in bed without any acute distress. Vital signs admission were stable. X-rays of the right hip and left shoulders were obtained but were still pending at this time. X-ray of the right hip was reviewed by myself and did show a likely right femoral neck fracture. At this timesurgeon on-call was contacted. The patient will be signed out to the oncoming physician, Dr. Moses pending official radiology reads as well as a callback from the or the surgeon on-call for pending admission. The patient was sent out in stable condition. Undiagnosed new problem with uncertain prognosis? @ -No Drug Therapy requiring intensive monitoring for toxicity (Heparin, Nitro, Insulin, Cardizem)? @ -No Were any procedures done? @ -No Diagnosis/symptom? @ -Fall, right femoral neck fracture Acute, or Chronic, or Acute on Chronic? @ -Acute Uncomplicated (without systemic symptoms) or Complicated (systemic symptoms)? @ -Uncomplicated Side effects of treatment? @ -No Exacerbation, Progression, or Severe Exacerbation? @ -No Poses a threat to life or bodily function? How? (Chest pain, [place], [place], pneumonia, PE, COPD, DKA, ARF, appy, cholecystitis, CVA, Diverticulitis, Homicidal, Suicidal, threat to staff... and all critical care pts) @ -No (Nguyễn Willett) - Lab Data Lab Results 02/20/23 02/20/23 02/20/23 Range/Units 07:01 07:01 07:01 WBC 6.9 (3.8-10.6) k/uL RBC 4.86 (4.30-5.90) m/uL Hgb 12.1 L (13.0-17.5) gm/dL Hct 39.3 (39.0-53.0) % MCV 80.8 (80.0-100.0) fL MCH 24.8 L (25.0-35.0) pg MCHC 30.7 L (31.0-37.0) g/dL RDW 17.2 H (11.5-15.5) % Plt Count 206 (150-450) k/uL MPV 7.8 Neutrophils % 68 % Lymphocytes % 20 % Monocytes % 6 % Eosinophils % 4 % Basophils % 1 % Neutrophils # 4.7 (1.3-7.7) k/uL Lymphocytes # 1.4 (1.0-4.8) k/uL Monocytes # 0.4 (0-1.0) k/uL Eosinophils # 0.3 (0-0.7) k/uL Basophils # 0.0 (0-0.2) k/uL Hypochromasia Moderate Anisocytosis Slight Microcytosis Slight PT 10.7 (9.0-12.0) sec INR 1.0 (<1.2) APTT 24.8 (22.0-30.0) sec Sodium 139 (137-145) mmol/L Potassium 3.6 (3.5-5.1) mmol/L Chloride 104 (98-107) mmol/L Carbon Dioxide 30 (22-30) mmol/L Anion Gap 5 mmol/L BUN 26 H (9-20) mg/dL Creatinine 1.47 H (0.66-1.25) mg/dL Est GFR (CKD-EPI)AfAm 54 (>60 ml/min/1.73 sqM) Est GFR (CKD-EPI)NonAf 47 (>60 ml/min/1.73 sqM) Glucose 101 H (74-99) mg/dL Calcium 8.7 (8.4-10.2) mg/dL Magnesium 1.9 (1.6-2.3) mg/dL Total Bilirubin 0.6 (0.2-1.3) mg/dL AST 27 (17-59) U/L ALT 17 (4-49) U/L Alkaline Phosphatase 102 (38-126) U/L NT-Pro-B Natriuret Pep pg/mL Total Protein 6.6 (6.3-8.2) g/dL Albumin 3.7 (3.5-5.0) g/dL Lipase 55 (23-300) U/L 02/20/23 Range/Units 07:01 WBC (3.8-10.6) k/uL RBC (4.30-5.90) m/uL Hgb (13.0-17.5) gm/dL Hct (39.0-53.0) % MCV (80.0-100.0) fL MCH (25.0-35.0) pg MCHC (31.0-37.0) g/dL RDW (11.5-15.5) % Plt Count (150-450) k/uL MPV Neutrophils % % Lymphocytes % % Monocytes % % Eosinophils % % Basophils % % Neutrophils # (1.3-7.7) k/uL Lymphocytes # (1.0-4.8) k/uL Monocytes # (0-1.0) k/uL Eosinophils # (0-0.7) k/uL Basophils # (0-0.2) k/uL Hypochromasia Anisocytosis Microcytosis PT (9.0-12.0) sec INR (<1.2) APTT (22.0-30.0) sec Sodium (137-145) mmol/L Potassium (3.5-5.1) mmol/L Chloride (98-107) mmol/L Carbon Dioxide (22-30) mmol/L Anion Gap mmol/L BUN (9-20) mg/dL Creatinine (0.66-1.25) mg/dL Est GFR (CKD-EPI)AfAm (>60 ml/min/1.73 sqM) Est GFR (CKD-EPI)NonAf (>60 ml/min/1.73 sqM) Glucose (74-99) mg/dL Calcium (8.4-10.2) mg/dL Magnesium (1.6-2.3) mg/dL Total Bilirubin (0.2-1.3) mg/dL AST (17-59) U/L ALT (4-49) U/L Alkaline Phosphatase (38-126) U/L NT-Pro-B Natriuret Pep 220 pg/mL Total Protein (6.3-8.2) g/dL Albumin (3.5-5.0) g/dL Lipase (23-300) U/L Disposition <Flash Moses - Last Filed: 02/20/23 09:46> Is patient prescribed a controlled substance at d/c from ED?: No Time of Disposition: 06:50 Decision to Admit Reason: Admit from EC Decision Date: 02/20/23 Decision Time: 06:50 <Nguyễn Willett - Last Filed: 02/20/23 22:40> Clinical Impression: Hip fracture Disposition: ADMITTED IP TO THIS HOSP Condition: Stable
[2023-02-20 07:09] LABS: Anisocytosis Slight; Basophils % (A) 1 %; Eosinophils # (A) 0.3 k/uL (0-0.7); Eosinophils % (A) 4 %; HCT 39.3 % (39.0-53.0); HGB 12.1 gm/dL (13.0-17.5); Hypochromasia Moderate; Lymphocytes # (A) 1.4 k/uL (1.0-4.8); Lymphocytes % (A) 20 %; MCH 24.8 pg (25.0-35.0); MCHC 30.7 g/dL (31.0-37.0); MCV 80.8 fL (80.0-100.0); Mean Platelet Volume 7.8; Microcytosis Slight; Monocytes # (A) 0.4 k/uL (0-1.0); Monocytes % (A) 6 %; Neutrophils # (A) 4.7 k/uL (1.3-7.7); Neutrophils % (A) 68 %; Platelet Count 206 k/uL (150-450); RBC 4.86 m/uL (4.30-5.90); RDW 17.2 % (11.5-15.5); WBC 6.9 k/uL (3.8-10.6)
[2023-02-20 07:23] LABS: Partial Thromboplastin Time 24.8 sec (22.0-30.0); Prothrombin Time 10.7 sec (9.0-12.0)
[2023-02-20] MEDS ORDERED: SODIUM CHLORIDE 0.9% 1,000 ML IV ONE ×2 (07:23→12:07)
[2023-02-20 07:26] LABS: ALT 17 U/L (4-49); AST 27 U/L (17-59); African American GFR (CKD) 54 (>60 ml/min/1.73 sqM); Albumin 3.7 g/dL (3.5-5.0); Alkaline Phosphatase 102 U/L (38-126); Anion Gap 5 mmol/L; Blood Urea Nitrogen 26 mg/dL (9-20); Calcium 8.7 mg/dL (8.4-10.2); Carbon Dioxide 30 mmol/L (22-30); Chloride 104 mmol/L (98-107); Glucose 101 mg/dL (74-99); Lipase 55 U/L (23-300); Magnesium 1.9 mg/dL (1.6-2.3); Non-African American GFR(CKD) 47 (>60 ml/min/1.73 sqM); Potassium 3.6 mmol/L (3.5-5.1); Sodium 139 mmol/L (137-145); Total Bilirubin 0.6 mg/dL (0.2-1.3); Total Protein 6.6 g/dL (6.3-8.2)
--- NOTE | 2023-02-20 07:56 | XR ---
EXAMINATION TYPE: XR chest 1V DATE OF EXAM: 02/20/2023 COMPARISON: 05/13/2021 HISTORY: 72-year-old male with chest pain, trauma after fall TECHNIQUE: Single frontal view of the chest is obtained. FINDINGS: Heart upper limits of normal in size. Aorta and pulmonary vascularity are within normal li mits. Old healed rib fracture deformities posterolateral lower left chest. Bilateral clavicular shaft fracture deformities. Mild patchy left basilar atelectasis or infiltrate. No sizable pleural effusio n. IMPRESSION: Old fracture deformities of the bilateral clavicles and lower posterolateral left ribs. There is some patchy atelectasis or early infiltrate at the periphery of the left base.
--- NOTE | 2023-02-20 07:59 | XR ---
EXAMINATION TYPE: XR shoulder complete 3 views LT, XR AP view pelvis and 2 views right hip DATE OF EXAM: 02/20/2023 Comparison: None Clinical History: 72-year-old male pain after fall and Trauma Findings: Left shoulder: No fracture deformity left clavicular shaft. Moderate to severe degenerative change of the AC joint. Superior loose body at the measures 10 mm. Some sclerosis at the greater tuberosity may reflect chron ic rotator cuff tendinopathy. No acute fracture, subluxation, or dislocation is seen. Pelvis and right hip: SI joints appear symmetric and intact. Pubic symphysis is intact. Mild change in both hips. There is a mildly angulated and externally rotated right femoral neck fracture. Impression: 1. Pelvis and right hip: Mildly angulated and externally rotated right femoral neck fracture. Mild bi lateral hip OA. 2. Left shoulder: Old fracture deformity of the clavicular shaft. Severe AC joint OA. Possible underl yordan chronic rotator cuff tendinopathy. No acute osseous abnormality seen.
--- NOTE | 2023-02-20 10:10 | P.HPOR ---
History of Present Illness H&P Date: 02/20/23 Chief Complaint: Right hip fracture Patient is a 72-year-old male who was brought to [facility] from [facility] after fall. Patient was attempting to go to the bathroom when he tripped and fell on his right side. Patient had immediate pain and deformity to the right lower extremity, he was unable to weight-bear. He was brought to the hospital by EMS. Upon arrival, imaging and lab tests were done, images demonstrated a displaced right femoral neck fracture. I was contacted by the emergency room staff, was able to review the images and dis cussed the case with Dr. Marquez. Patient was admitted under our orthopedic care internal medicine was placed on for medical consult and management. Patient was evaluated at bedside in the emergency room, he is resting comfortably. Most of the discomfort in the right hip with movement. He is having some generalized left shoulder pain and does have a history of a previous clavicle fracture. He denies any right upper extremity pain, left lower extremity pain. He does note chronic neuropathy in his bilateral feet. He denies any previous surgery to the right lower extremity. Past medical history includes COPD, chronic kidney disease and liver cirrhosis. Patient has been living at [facility] for the last year or so. Patient normally utilizes a walker or wheelchair assistance for ambulation. Review of Systems Constitutional: Reports as per HPI Past Medical History Past Medical History: COPD, Hypertension Additional Past Medical History / Comment(s): Alcoholism-patient was drinking a fifth/gallon of alcohol daily until recent admission April 01, 2021; smoker; COPD; herniated discs, arrived at hospital with hudson catheter from [facility] History of Any Multi-Drug Resistant Organisms: None Reported Past Surgical History: No Surgical Hx Reported Past Anesthesia/Blood Transfusion Reactions: No Reported Reaction Past Psychological History: No Psychological Hx Reported Smoking Status: Former smoker Past Alcohol Use History: None Reported Additional Past Alcohol Use History / Comment(s): Patient was drinking a fifth / gallon daily for many years prior to recent hospital admission April 01, 2021. Per daughter. Patient was sent from hospital to [facility] for reha b. Patient was living in a home with friends, the home was raided by police for cooking meth. Pt states he has not had anyhting to drink since prior admission. Past Drug Use History: None Reported Additional Drug Use History / Comment(s): pt has previous history. - Past Family History Father Family Medical History: Hypertension Mother Additional Family Medical History / Comment(s): pt states mother has hist. of anxiety and depression. Medications and Allergies Home Medications Medication Instructions Recorded Confirmed Type Acetaminophen Tab [Tylenol] 650 mg PO Q6HR PRN tab 04/15/21 10/27/21 Rx Multivitamins, Thera [Multivitamin 1 tab PO DAILY #30 tablet 04/15/21 10/27/21 Rx (formulary)] Sodium Bicarbonate Tab 650 mg PO BID tab 04/15/21 10/27/21 Rx Thiamine [Vitamin B-1] 100 mg PO DAILY tab 04/15/21 10/27/21 Rx Healthshake 1 can PO TID@0700,1200,1700 04/28/21 10/27/21 History Ipratropium-Albuterol Nebulize 3 ml INHALATION RT-Q4H PRN 04/28/21 10/27/21 History [Duoneb 0.5 mg-3 mg/3 ml Soln] Omeprazole 20 mg PO DAILY 04/28/21 10/27/21 History Simethicone Chew [Mylicon Chew] 40 mg PO QID PRN tab 05/20/21 10/27/21 Rx Calcium Carbonate [Tums] 1,000 mg PO Q6H PRN 10/27/21 10/27/21 History Ciprofloxacin HCl [Cipro] 250 mg PO HS 10/27/21 10/27/21 History Folic Acid 0.8 mg PO DAILY 10/27/21 10/27/21 History Furosemide [Lasix] 20 mg PO DAILY 10/27/21 10/27/21 History Loperamide HCl [Imodium A-D] 2 mg PO Q12H PRN 10/27/21 10/27/21 History Gabapentin [Neurontin] 100 mg PO TID@0800,1200,1800 #9 cap 10/28/21 Rx HYDROcodone/APAP 5-325MG [[place] 1 tab PO Q8H PRN #9 tab 10/28/21 Rx 5-325] HYDROcodone/APAP 5-325MG [[place] 1 tab PO QID@05,11,17,23 #12 tab 10/28/21 Rx 5-325] Allergies Allergy/AdvReac Type Severity Reaction Status Date / Time No Known Allergies Allergy Verified 10/27/21 16:43 Physical Examination Right lower extremity: No obvious open lesions or sores are visualized. Obvious shortening and external rotation of the extremity when compared to the contralateral side Logroll maneuver of the extremity reproduces severe pain, he is unable to straight leg raise Obvious discomfort with palpation to the proximal femur. No tenderness with palpation surrounding the knee, lower leg, foot or ankle Plantar flexion, dorsiflexion, EHL, FHL are intact Calf is soft, no tenderness with palpation Sensory exam to light touch throughout the extremity is intact, he does have vague numbness in the plantar aspect of feet Dorsalis pedis pulses 2+ Gen. orthopedic exam: Passive and active range of motion with regards to the bilateral upper extremities are intact with forward elevation, shoulder abduction and extension, elbow flexion, wrist extension, wrist flexion, review analyst. No significant tenderness with palpation appreciated throughout the shoulder exam Logroll maneuver of the left lower extremity reproduces no pain, he is nontender with palpation throughout the proximal left lower extremity, knee, lower leg, foot or ankle Sensory exam to light touch throughout the bilateral upper extremities left lower extremities are intact. Vague numbness is also noted on the plantar aspect of the left foot Results - Labs Labs: Abnormal Lab Results - Last 24 Hours (Table) 02/20/23 02/20/23 Range/Units 07:01 07:01 Hgb 12.1 L (13.0-17.5) gm/dL MCH 24.8 L (25.0-35.0) pg MCHC 30.7 L (31.0-37.0) g/dL RDW 17.2 H (11.5-15.5) % BUN 26 H (9-20) mg/dL Creatinine 1.47 H (0.66-1.25) mg/dL Glucose 101 H (74-99) mg/dL H & H 02/20/23 Range/Units 07:01 Hgb 12.1 L (13.0-17.5) gm/dL Hct 39.3 (39.0-53.0) % Coagulation 02/20/23 Range/Units 07:01 INR 1.0 (<1.2) Result Diagrams: 02/20/23 07:01 02/20/23 07:01 - Diagnostic results Shoulder x-ray: report reviewed, image reviewed (X-rays reviewed of the left shoulder. Images demonstrate no acute fractures or dislocations. Previous midshaft left clavicle fracture noted, severe acromioclavicular arthritis is noted) Hip x-ray: report reviewed, image reviewed (X-rays of the right hip. Images demonstrate displaced right femoral neck fracture. Mild osteophytic changes of the bilateral hips noted) Assessment and Plan Assessment: Displaced right femoral neck fracture Left shoulder pain Left shoulder acromioclavicular joint osteoarthritis Previous left clavicle fracture, stable Status post fall from standing Cirrhosis COPD Other medical comorbidities Plan: I was able to discuss the case, this including both physical exam findings and imaging studies with my attending Dr. Marquez. We would like to proceed with surgical intervention, more specifically a right hip hemiarthroplasty. The risk and benefits of the procedure were discussed the patient today at bedside, this to include but not exclusive infection, blood loss, neurovascular injury, development of blood clots, inadequate healing of bone, need for subsequent surgery. Patient is understanding and would like to proceed with surgery. Planning for surgery on 02/20/2023. Obtain consent prior to procedure Continue nothing by mouth diet at this time DVT prophylaxis, we'll begin either oral or subcu medication after surgery Medical recommendations Pain control, will utilize both oral and IV medications as needed PT/OT evaluation after surgery Further recommendations to follow Time with Patient: Less than 30
[2023-02-20] MEDS ORDERED: IPRATROPIUM-ALBUTEROL 3 ML NEB INHALATION PRN (10:50)
--- NOTE | 2023-02-20 10:53 | P.CONS ---
History of Present Illness - Reason for Consult Consult date: 02/20/23 - Chief Complaint medical management, preop clearance - History of Present Illness 72 year old man with history of CKD III, Liver Cirrhosis, HTN, HLD, COPD presented after mechanical fall resulted in hip fracture. Medicine consulted for medical management as well as pre-operative clearance. Patient has previously graduated hospice in the last year for which she was enrolled initially for decompensated liver cirrhosis, however, has since improved and no longer builds ascites in his abdomen. He is typically ambulatory with a walker in the fdc, and is able to "walk around the building without any trouble". He believes he is still required to be in a fdc due to neuropathy in his lower extremities. He denies history of heart attack or stroke. He denies symptoms of angina, dyspnea on exertion. Patient's METs estimation is less than 4. Centeno activity status index estimation is approximately 3.63 METs. Patient otherwise denies fevers, chills, nausea, vomiting, chest pain, palpitations, syncope, presyncope, cough, dyspnea, abdominal pain, constipation, diarrhea, dysuria, dyschezia, numbness/weakness of extremities. In the emergency room, patient was afebrile, 139/86, heart rate 61, 100% on 2 L of nasal cannula. CBC demonstrates mild anemia down to 12.1, normal platelets of 206. Basic metabolic panel shows BUN 26, creatinine of 1.47. Liver function tests are unremarkable. Lipase is 55. Coags are unremarkable. Chest x-ray shows clear parenchyma on the right with opacity of the left lower base, also with borderline cardiomegaly. EKG shows normal sinus rhythm with T-wave inversion in lead 3, normal axis, no evidence of ischemia or old infarct. Hip x-ray shows mildly angulated and externally rotated right femoral neck fracture, shoulder x-ray shows old fracture deformity of the clavicular shaft with no acute osseous abnormalities. Patient was admitted to the orthopedic surgery service and medicine was consulted for medical management and preoperative clearance. All Systems reviewed and pertinent positives and negatives noted in HPI, all o ther symptoms are negative Gen: in no apparent distress, resting comfortably in bed Eyes: PERRL, no scleral injection or icterus HENT: normocephalic, atraumatic, good hearing acuity, moist mucous membranes Neck: no tracheal deviation, full range of motion Resp: good air exchange, breathing comfortably with no accessory muscle use, no tactile fremitus CVS: good distal perfusion x 4, trace bilateral pitting edema GI: soft, NTTP, ND, no hepatosplenomegaly : no suprapubic tenderness, no CVAT, hudson catheter not present MSK: no clubbing, no cyanosis, no noted contractures of extremities Skin: no noted rashes, petechiae; temperature of skin is appropriate Neuro: moving all extremities without signs of weakness, CN II-XII intact Psych: cooperative, euthymic mood, insight and judgment intact Labs and imaging as above Assessment: Preoperative clearance Chronic kidney disease stage III Liver cirrhosis Hypertension Hyperlipidemia COPD without exacerbation Plan: Vital signs reviewed and noted in the [facility] Lab work reviewed and noted in the HPI EKG and CXR are personally interpreted and noted in the HPI Hip and shoulder x-ray were reviewed and they're findings noted in HPI Case was discussed with the orthopedic surgery team, patient will be cleared for operation as below, I do recommend spinal anesthesia as opposed to general endotracheal anesthesia if at all possible CBC, basic metabolic panel, magnesium ordered for tomorrow NSQIP risk calculator estimates 1.4% risk of major adverse cardiac event; patient will require preoperative EKG as well as preoperative BNP, after which she may proceed to surgery without any further testing Discontinue IV fluids Resume sodium bicarbonate 650 mg twice a day Continue duo nebs every 4 hours when necessary Continue gabapentin 100 mg 3 times a day Hold home Lasix 20 mg daily Patient is DO NOT RESUSCITATE/DO NOT INTUBATE DVT prophylaxis with heparin 5000 units subcu 3 times a day Past Medical History Past Medical History: COPD, Hypertension Additional Past Medical History / Comment(s): Alcoholism-patient was drinking a fifth/gallon of alcohol daily until recent admission April 01, 2021; smoker; COPD; herniated discs, arrived at hospital with hudson catheter from [facility] History of Any Multi-Drug Resistant Organisms: None Reported Past Surgical History: No Surgical Hx Reported Past Anesthesia/Blood Transfusion Reactions: No Reported Reaction Past Psychological History: No Psychological Hx Reported Smoking Status: Former smoker Past Alcohol Use History: None Reported Additional Past Alcohol Use History / Comment(s): Patient was drinking a fifth / gallon daily for many years prior to recent hospital admission April 01, 2021. Per daughter. Patient was sent from hospital to [facility] for rehab. Patient was living in a home with friends, the home was raided by police for cooking meth. Pt states he has not had anyhting to drink since prior admission. Past Drug Use History: None Reported Additional Drug Use History / Comment(s): pt has previous history. - Past Family History Father Family Medical History: Hypertension Mother Additional Family Medical History / Comment(s): pt states mother has hist. of anxiety and depression. Medications and Allergies Home Medications Medication Instructions Recorded Confirmed Type Acetaminophen Tab [Tylenol] 650 mg PO Q6HR PRN tab 04/15/21 10/27/21 Rx Multivitamins, Thera [Multivitamin 1 tab PO DAILY #30 tablet 04/15/21 10/27/21 Rx (formulary)] Sodium Bicarbonate Tab 650 mg PO BID tab 04/15/21 10/27/21 Rx Thiamine [Vitamin B-1] 100 mg PO DAILY tab 04/15/21 10/27/21 Rx Healthshake 1 can PO TID@0700,1200,1700 04/28/21 10/27/21 History Ipratropium-Albuterol Nebulize 3 ml INHALATION RT-Q4H PRN 04/28/21 10/27/21 History [Duoneb 0.5 mg-3 mg/3 ml Soln] Omeprazole 20 mg PO DAILY 04/28/21 10/27/21 History Simethicone Chew [Mylicon Chew] 40 mg PO QID PRN tab 05/20/21 10/27/21 Rx Calcium Carbonate [Tums] 1,000 mg PO Q6H PRN 10/27/21 10/27/21 History Ciprofloxacin HCl [Cipro] 250 mg PO HS 10/27/21 10/27/21 History Folic Acid 0.8 mg PO DAILY 10/27/21 10/27/21 History Furosemide [Lasix] 20 mg PO DAILY 10/27/21 10/27/21 History Loperamide HCl [Imodium A-D] 2 mg PO Q12H PRN 10/27/21 10/27/21 History Gabapentin [Neurontin] 100 mg PO TID@0800,1200,1800 #9 cap 10/28/21 Rx HYDROcodone/APAP 5-325MG [[place] 1 tab PO Q8H PRN #9 tab 10/28/21 Rx 5-325] HYDROcodone/APAP 5-325MG [[place] 1 tab PO QID@,, #12 tab 10/28/21 Rx 5-325] Allergies Allergy/AdvReac Type Severity Reaction Status Date / Time No Known Allergies Allergy Verified 10/27/21 16:43 Physical Exam Osteopathic Statement: *. No significant issues noted on an osteopathic structural exam other than those noted in the History and Physical/Consult. Vitals: Vital Signs Temp Pulse Resp BP Pulse Ox 02/20/23 07:42 98.2 F 61 18 139/86 100 02/20/23 04:40 98.2 F 61 18 127/74 95 Intake and Output 02/19/23 02/20/23 02/20/23 22:59 06:59 14:59 Other: Weight 99.79 kg Results CBC & Chem 7: 02/20/23 07:01 02/20/23 07:01 Labs: Abnormal Lab Results - Last 24 Hours (Table) 02/20/23 02/20/23 Range/Units 07:01 07:01 Hgb 12.1 L (13.0-17.5) gm/dL MCH 24.8 L (25.0-35.0) pg MCHC 30.7 L (31.0-37.0) g/dL RDW 17.2 H (11.5-15.5) % BUN 26 H (9-20) mg/dL Creatinine 1.47 H (0.66-1.25) mg/dL Glucose 101 H (74-99) mg/dL
[2023-02-20] MEDS: GABAPENTIN 100 MG CAP PO SCH ×2 (11:39→17:24)
--- NOTE | 2023-02-20 11:53 | P.PN ---
Progress Note - Text Progress Note Date: 02/20/23 Patient seen and examined, I reviewed the note, discussed the case with the PA first hand and agree with the assessment and plan of DAVIN Pittman. Please see my notes below for any additional recommendations. Orthopedic Surgery Risk Review Neri Kurtz is a 72-year-old male presenting for evaluation of sudden onset right hip pain, inability to ambulate after fall from standing. It was my pleasure to have seen and examined Neri Kurtz. In our visit today we have had a chance to go over subjective complaints, physical examination findings and treatments including the natural course history without intervention and various interventional options. His imaging demonstrates right femoral neck fracture completely displaced shortened. On physical exam, Neri Kurtz demonstrates pain with motion of right lower extremity, which is NV intact at this time. I have explained to the patient that this fracture needs stabilization. Based on the patients imaging, physical exam, and the rapid progression and disabling nature of her symptoms, at this time I recommend surgery in the form or a: Right hip hemiarthroplasty I discussed the risk and benefits of this procedure at length with Neri Kurtz. Questions were invited and answered, and the patient wishes to proceed as outlined below. Currently, I am recommendin. Right hip hemiarthroplasty 2. Review of surgical risks and benefits as well as an educational packet on the proposed surgical procedure. Risks: All surgical procedures come with inherent risks, including those related to positioning, anesthesia, intraoperative findings, and postoperative complications. It is important to understand that surgery does not come with any guarantee of a successful outcome as complications and adverse events are always possible. The patient was given a handout discussing the surgical procedure and risks associated with the intervention, both of which were discussed with the patient. These risks include but are not limited to the following: - Experiencing same, different or even worse symptoms compared to before surgery. - Requiring further surgery or other forms of treatment presently or at some time in the future . - On an extreme but fortunately relatively rare basis severe complication such as blindness, stroke, heart attack, temporary and/or permanent nerve injury, paralysis, coma, or may occur, sometimes without known explanation. - Surgical complications may include but are not limited to risk of infection, fluid accumulation in the surgical dissection site, including a seroma or hematoma, that requires additional surgery, wound drainage, bleeding, new numbness or weakness, vision changes/loss, spinal fluid leakage, non-healing and/or infected incision, headaches, difficulty or inability to swallow, hoarseness, hemopneumothorax, pneumothorax, injury to nerves, spinal cord, blood vessels, lymphatics or other vital organs (i.e., bowel injury, injury to the great vessels); heterotopic bone formation; complications related to the hardware such as screws, rods, including misplaced hardware, device failure, hardware fracture/breakage, or hardware loosening; retained surgical instrumentations or devices and the need for further surgery. - Medical risks of the planned surgery include but are not limited to generalized Infections to the whole body or local areas outside of the surgical site (sepsis), heart attack, bleeding, anaphylaxis, meningitis, seizure, epilepsy, hearing loss, burn bajwa, laceration of the head or other areas of the body, bruising, hypersensitivity of the skin, bladder over distension; allergic reaction; shoulder injury related to positioning; fat, blood and air clots to other areas of the body like heart, lungs, brain; failure of internal organs such as lungs, kidneys, liver and excessive bleeding. If blood transfusions are necessary, note that transfusions may cause intolerance reactions such as anaphylaxis or other complex reactions. Despite best efforts, the results of surgery might not heal in terms of bone, soft tissues such as skin, fascia, ligaments, and joints. [facility] has multiple operating rooms with single and overlapping rooms running daily. They currently function under the required guidelines as produced by the Senate [employer] Committee with regards to the overlapping rooms and will continue to comply with changes to this policy as they occur. The requirements include and are complied with as follows: (1) the critical portions of the overlapping rooms will not occur at the same time, (2) the attending physician will be physically present during the critical portions of the procedure and immediately available during the entire case, and (3) a back-up attending is designated should the primary attending not be immediately available. The patient has had a chance to review all the listed information, has been given print outs detailing this information, and has had all his/her questions answered to their satisfaction. It was my pleasure to have seen and examined Neri Kurtz. In our visit today we have had a chance to go over my understanding of our patient's current condition, the natural course history without intervention and various interventional options. Questions were invited and answered, and the patient wishes to proceed as outlined above. I have seen and examined the patient for 25 minutes and we have spent more than 50% of the time in repeat and detailed counseling about the patient's condition, its natural course history with out and as much as can be predicted with surgery and re-review of various surgical treatment options. In conclusion, Neri Kurtz and family requested we proceed with the above suggested surgery and are willing to accept risks and limitations of the suggested surgery as nature of the disease process and our best attempts at treatment for the condition. Thank you again for allowing us to be part of your patient's care. Please don't hesitate to contact me if you have any further questions. Signed and authenticated by: Davonte Mondragon [facility] [address] [place] [address]
[2023-02-20] MEDS ORDERED: ONDANSETRON 4 MG/2 ML VIAL ONE (12:07)
[2023-02-20] MEDS ORDERED: KETAMINE 10 MG/ML 20 ML VIAL ONE (12:07)
[2023-02-20] MEDS ORDERED: GLYCOPYRROLATE 0.2 MG/ML 2 ML VIAL ONE (12:07)
[2023-02-20] MEDS ORDERED: fentaNYL (PF) 50 MCG/ML 2 ML AMP ONE (12:07)
[2023-02-20] MEDS ORDERED: LIDOCAINE 2% INJ 20 MG/ML (2 ML VIAL) ONE (12:07)
[2023-02-20] MEDS ORDERED: MIDAZOLAM 2 MG/2 ML VIAL ONE (12:07)
[2023-02-20] MEDS ORDERED: SUGAMMADEX SODIUM 200 MG/2 ML SDV IV ONE (12:07)
[2023-02-20] MEDS ORDERED: SUCCINYLCHOLINE CHLORIDE 200 MG/10 ML VIAL IV ONE (12:07)
[2023-02-20] MEDS ORDERED: PROPOFOL 10 MG/ML 20 ML VIAL IV ONE (12:07)
[2023-02-20] MEDS ORDERED: ROCURONIUM 10 MG/ML (5 ML VIAL) IV ONE (12:07)
[2023-02-20] MEDS ORDERED: LACTATED RINGERS 1,000 ML IV ONE (13:25)
[2023-02-20] MEDS ORDERED: ONDANSETRON 4 MG/2 ML VIAL IVP PRN (14:02)
[2023-02-20] MEDS ORDERED: HYDROmorphone 0.5 MG/0.5 ML SYRINGE IVP PRN (14:02)
[2023-02-20] MEDS ORDERED: ACETAMINOPHEN TAB 325 MG TAB PO PRN (14:02)
[2023-02-20] MEDS ORDERED: HYDROcodone/APAP 5-325MG 1 EACH TAB PO PRN (14:02)
[2023-02-20] MEDS ORDERED: NALOXONE 0.4 MG/ML 1 ML VIAL IV PRN (14:02)
[2023-02-20] MEDS ORDERED: MAGNESIUM HYDROXIDE 2,400 MG/10 ML CUP PO PRN (14:02)
[2023-02-20] MEDS ORDERED: HYDROmorphone 0.5 MG/0.5 ML SYRINGE IVP ONE ×2 (14:17→14:29)
--- NOTE | 2023-02-20 14:40 | XR ---
EXAMINATION TYPE: XR Hip Limited RT DATE OF EXAM: 02/20/2023 Comparison: Earlier today Clinical History: 72-year-old male Status post hip surgery, assess surgical alignment Findings: Initial placement of bipolar right hip hemiarthroplasty. Femoral stem component appears well seated w ithout periprosthetic fracture. Alignment grossly anatomic. Some soft tissue air related to recent op eration. IMPRESSION: Uncomplicated postoperative appearance bipolar right hip hemiarthroplasty.
[2023-02-20] MEDS: HEPARIN SODIUM,PORCINE/PF 5,000 UNIT/0.5 ML SYRINGE SQ SCH ×2 (15:59→23:48)
[2023-02-20] MEDS: HYDROcodone/APAP 7.5-325MG 1 EACH TAB PO PRN ×2 (17:23→23:08)
[2023-02-20] MEDS: SENNOSIDES-DOCUSATE SODIUM 1 EACH TAB PO SCH (20:35)
[2023-02-20] MEDS: SODIUM BICARBONATE TAB 650 MG TAB PO SCH (20:35)
[2023-02-21] MEDS: HYDROmorphone 1 MG/ML 1 ML SYRINGE IVP PRN ×2 (03:40→14:11)
[2023-02-21] MEDS: HYDROcodone/APAP 7.5-325MG 1 EACH TAB PO PRN ×3 (06:59→17:25)
[2023-02-21 07:12] LABS: Anisocytosis Slight; Basophils % (A) 0 %; Eosinophils % (A) 1 %; HCT 35.3 % (39.0-53.0); HGB 10.7 gm/dL (13.0-17.5); Hypochromasia Marked; Lymphocytes # (A) 1.2 k/uL (1.0-4.8); Lymphocytes % (A) 16 %; MCH 24.9 pg (25.0-35.0); MCHC 30.3 g/dL (31.0-37.0); MCV 82.2 fL (80.0-100.0); Mean Platelet Volume 7.7; Monocytes # (A) 0.6 k/uL (0-1.0); Monocytes % (A) 8 %; Neutrophils # (A) 5.9 k/uL (1.3-7.7); Neutrophils % (A) 75 %; Platelet Count 211 k/uL (150-450); RDW 17.2 % (11.5-15.5); WBC 7.9 k/uL (3.8-10.6)
[2023-02-21 07:55] LABS: African American GFR (CKD) 58 (>60 ml/min/1.73 sqM); Anion Gap 5 mmol/L; Blood Urea Nitrogen 21 mg/dL (9-20); Calcium 8.1 mg/dL (8.4-10.2); Carbon Dioxide 28 mmol/L (22-30); Chloride 108 mmol/L (98-107); Glucose 101 mg/dL (74-99); Non-African American GFR(CKD) 50 (>60 ml/min/1.73 sqM); Potassium 3.8 mmol/L (3.5-5.1); Sodium 141 mmol/L (137-145)
[2023-02-21] MEDS: HEPARIN SODIUM,PORCINE/PF 5,000 UNIT/0.5 ML SYRINGE SQ SCH ×3 (08:33→23:11)
[2023-02-21] MEDS: SODIUM BICARBONATE TAB 650 MG TAB PO SCH ×2 (08:34→19:51)
[2023-02-21] MEDS: GABAPENTIN 100 MG CAP PO SCH ×3 (08:34→17:25)
--- NOTE | 2023-02-21 10:00 | P.PN ---
Subjective Progress Note Date: 02/21/23 Principal diagnosis: Status post right hip hemiarthroplasty Patient evaluated at bedside, he is resting comfortably. The abductor pillows in good position. Urinary catheter remains in place. He states he is pretty uncomfortable today, he is yet to be up with physical therapy. Denies any headaches, lightheadedness, chest pain or shortness of breath Objective - Vital Signs Vital signs: Vital Signs Temp 98.2 F 02/21/23 06:50 Pulse 77 02/21/23 06:50 Resp 16 02/21/23 06:50 BP 128/71 02/21/23 06:50 Pulse Ox 96 02/21/23 06:50 FiO2 Intake & Output 02/20/23 02/21/23 02/21/23 18:59 06:59 18:59 Intake Total 1500 Output Total 100 600 Balance 1400 -600 Weight 99.79 kg Intake: IV 1500 Output: Urine 600 Estimated Blood Loss 100 Other: Voiding Method External Catheter # Voids 1 2 - Exam Right lower extremity: Silver foam dressing is in good position and condition, mild spotting noted on dressing. There is minimal soft tissue swelling and ecchymosis surrounding the medial and lateral aspects of the incision. Calf is soft, no tenderness with palpation. Plantar flexion, dorsiflexion, EHL, FHL are intact. Sensory exam to light touch throughout the extremity is intact, dorsal pedis pulses 2+. - Labs CBC & Chem 7: 02/21/23 06:25 02/21/23 06:25 Labs: Abnormal Lab Results - Last 24 Hours (Table) 02/21/23 02/21/23 Range/Units 06:25 06:25 Hgb 10.7 L (13.0-17.5) gm/dL Hct 35.3 L (39.0-53.0) % MCH 24.9 L (25.0-35.0) pg MCHC 30.3 L (31.0-37.0) g/dL RDW 17.2 H (11.5-15.5) % Chloride 108 H (98-107) mmol/L BUN 21 H (9-20) mg/dL Creatinine 1.40 H (0.66-1.25) mg/dL Glucose 101 H (74-99) mg/dL Calcium 8.1 L (8.4-10.2) mg/dL Assessment and Plan Assessment: Postoperative day #1 status post right hip hemiarthroplasty Acute blood loss anemia, expected surgical outcome Cirrhosis COPD Plan: Pain control, continue use of both oral medications and IV as needed. Continue daily stool softeners DVT prophylaxis, continue heparin Wound care, continue to monitor this dressing, can change her over the next 23 days Ice and elevate Abductor pillow while in bed PT/OT, WBAT with walker Medical recommendations Ferrous sulfate 325mg bid will be started today Discharge planning: Anticipate discharge to subacute rehab in the next 24-48 hours Time with Patient: Less than 30
[2023-02-21] MEDS: FERROUS SULFATE 325 MG TAB PO SCH (17:25)
--- NOTE | 2023-02-21 18:21 | P.OP ---
Date of Procedure: 02/20/23 Preoperative Diagnosis: 1. Right femoral neck fracture, compete displaced, comminuted 2. s/p ffs 3. Complex medical patient Postoperative Diagnosis: 1. Right femoral neck fracture, compete displaced, comminuted 2. s/p ffs 3. Complex medical patient Procedure(s) Performed: 1. Right hip hemiarthroplasty Implants: Jean and nephew polar stem bipolar F: 4 Head 52 INner:28 Std neck 0 head Anesthesia: GETA Surgeon: Davonte Marquez Momd Teacher #1: Martin Correa (Was present and assisted with all aspects of the case from positioning to dressing placement) Estimated Blood Loss (ml): 100 IV fluids (ml): 500 Urine output (ml): 0 Pathology: none sent Condition: stable Disposition: PACU Indications for Procedure: Neri Kurtz is a 72-year-old male presenting for evaluation of sudden onset right hip pain, inability to ambulate after fall from standing. It was my pleasure to have seen and examined Neri Kurtz. In our visit today we have had a chance to go over subjective complaints, physical examination findings and treatments including the natural course history without intervention and various interventional options. His imaging demonstrates right femoral neck fracture completely displaced shortened. On physical exam, Neri Kurtz demonstrates pain with motion of right lower extremity, which is NV intact at this time. I have explained to the patient that this fracture needs stabilization. Based on the patients imaging, physical exam, and the rapid progression and disabling nature of her symptoms, at this time I recommend surgery in the form or a: Right hip hemiarthroplasty I discussed the risk and benefits of this procedure at length with Neri Kurtz. Questions were invited and answered, and the patient wishes to proceed as outlined below. Currently, I am recommendin. Right hip hemiarthroplasty Description of Procedure: Right Hip Hemiarthroplasty The patient was seen and examined in the preoperative area. All preoperative protocols were followed. Informed consent was obtained risks and benefits of the procedure were discussed at length. Risks including bleeding infection damage to the surrounding tissue and risk of reoperation were discussed with the patient. Risk of anesthesia up to and including was a discussed with the patient. These are outlined in the risk reviewed. They were willing to accept these risks and all of the risks of surgery. The patient was given a weight- based dose of antibiotics in the form of 2 g Ancef. The patient was seen and evaluated by the anesthesia team who deemed them fit for surgery. The site was marked, the patient was willing to proceed with the procedure. The patient was transferred to the operative suite by the Department of anesthesia. There were then drifted off to sleep by the department of anesthesia and spinal anesthesia was used. Once adequate anesthesia had been obtained the patient was carefully transferred to the operative bed and placed in the lateral decubitus position secured with posts with an axillary role and appropiate padding. All bony prominences were padded accordingly. SCDs were placed on the nonoperative lower extremities. Arms were well padded. The Right leg was exposed and 1015 placed around the site. Preoperative briefing was done with the operative team and everyone was ready for the procedure to start. The patients right leg was then prepped and draped in the normal sterile fashion. Timeout was then performed and all parties in agreement with the procedure to be performed. Standard incision was marked for posterior approach to the hip. Skin incision made and dissection taken down to the TFL which was identified and split with its fibers. Charnley retractor placed and bursa identified along with vastus insertion and gluteus medius. Medius was protected and posterior short external rotators along with capsule and piriformus which was tagged, identified and released. Capsulotomy in an L shape was performed along the superior neck which allowed for dislocation of the fractured stump. Shoulder was palpated along with Lesser trochanter and clean up cut made 1 cm superior to the LT. Once this was done retractors placed and the head was removed with a cork srew and T handle. Once removed it was sized and a trial head was placed and had good suction fit. Attention was then turned to femoral preparation. Box osteotome was used to enter followed by canal finder and lateralizer. Rat tail then used to widen this. Sequential broaching was then performed until the desired size and fit. Once this was achieved a head and neck combo was trialed. Once reduced the hit was taken through a range of motion and was stable in all positions, had good motion and leg lengths were equal. The hip was then atraumatially dislocated and the braoch checked, it was stable and so final sizes selected. The wound, acetabulum and femoral canal were then irrigated copiously with pulse lavage and NSS. Canal and acetabulum inspected and were appropriate. Final implants were then confirmed and femoral stem impacted into position and was stable. Bipolar head combo was then assembled and placed and impacted into position and tested and was stable. The hip was then reduced and taken through a ROM again and was stable and had good length. The wound was again irrigated. Posterior capsule was then stitched with ethibond suture and passed through three drill holes made in the posterior GT. These were then tightened and tied. The capsule was then oversewn with an ethibond stitch for tight closure. ROM showed good tension and good closure. Charnley removed and TFL repaired with #1 vicryl in running locking fashion. Deep subq closed with 0 Vicryl, Superficial with 2-0 vicryl and skin with alfonso. Wound edges approximated well. The wound was then cleaned and dressed sterrilly with Optifoam dressing. The patient was then transferred back to their hospital bed. There were awakened by department of anesthesia having tolerated the procedure very well with no complications. Hip abduction pillow placed. The patient was then transported to the postoperative care unit in stable condition.
[2023-02-21] MEDS: SENNOSIDES-DOCUSATE SODIUM 1 EACH TAB PO SCH (19:52)
[2023-02-21] MEDS ORDERED: CALCIUM CARBONATE 500 MG CHEWABLE PO PRN (20:44)
[2023-02-21] MEDS ORDERED: SODIUM CHLORIDE 0.65% NASAL SPRAY 44 ML BTL NASAL PRN (20:44)
--- NOTE | 2023-02-21 20:48 | P.PN ---
Progress Note - Text Progress Note Date: 02/21/23 Hospital course: 72 year old man with history of CKD III, Liver Cirrhosis, HTN, HLD, COPD present ed after mechanical fall resulted in hip fracture. Medicine consulted for medical management as well as pre-operative clearance. Patient has previously graduated hospice in the last year for which she was enrolled initially for decompensated liver cirrhosis, however, has since improved and no longer builds ascites in his abdomen. He is typically ambulatory with a walker in the assisted, and is able to "walk around the building without any trouble". He believes he is still required to be in a assisted due to neuropathy in his lower extremities. He denies history of heart attack or stroke. He denies symptoms of angina, dyspnea on exertion. Patient's METs estimation is less than 4. [place] activity status index estimation is approximately 3.63 METs. Patient otherwise denies fevers, chills, nausea, vomiting, chest pain, palpitations, syncope, presyncope, cough, dyspnea, abdominal pain, constipation, diarrhea, dysuria, dyschezia, numbness/weakness of extremities. In the emergency room, patient was afebrile, 139/86, heart rate 61, 100% on 2 L of nasal cannula. CBC demonstrates mild anemia down to 12.1, normal platelets of 206. Basic metabolic panel shows BUN 26, creatinine of 1.47. Liver function tests are unremarkable. Lipase is 55. Coags are unremarkable. Chest x-ray shows clear parenchyma on the right with opacity of the left lower base, also with borderline cardiomegaly. EKG shows normal sinus rhythm with T-wave inversion in lead 3, normal axis, no evidence of ischemia or old infarct. Hip x-ray shows mildly angulated and externally rotated right femoral neck fracture, shoulder x-ray shows old fracture deformity of the clavicular shaft with no acute osseous abnormalities. Patient was admitted to the orthopedic surgery service and medicine was consulted for medical management and preoperative clearance. February 21: I assumed care of the patient today from [facility]. Laying in bed. Some pain at the operative site. Not too hungry for breakfast. Breathing stable. On nasal cannula. Patient underwent right hip hemiarthroplasty by Dr. Marquez yesterday. Active Medications Acetaminophen (Acetaminophen Tab 325 Mg Tab) 650 mg PO Q4HR PRN PRN Reason: Pain Scale 1 to 5 Hydrocodone Bitart/Acetaminophen (Hydrocodone/Apap 5-325mg 1 Each Tab) 1 each PO Q6HR PRN PRN Reason: Pain Scale 1 to 5 Hydrocodone Bitart/Acetaminophen (Hydrocodone/Apap 7.5-325mg 1 Each Tab) 1 each PO Q6H PRN PRN Reason: Pain Scale 6 to 10 Last Admin: 02/21/23 17:25 Dose: 1 each Albuterol/Ipratropium (Ipratropium-Albuterol 3 Ml Neb) 3 ml INHALATION RT-Q4H PRN PRN Reason: Shortness Of Breath Ferrous Sulfate (Ferrous Sulfate 325 Mg Tab) 325 mg PO BID-W/MEALS [facility] Last Admin: 02/21/23 17:25 Dose: 325 mg Gabapentin (Gabapentin 100 Mg Cap) 100 mg PO TID@0800,1200,1800 [facility] Last Admin: 02/21/23 17:25 Dose: 100 mg Heparin Sodium (Porcine) (Heparin Sodium,Porcine/Pf 5,000 Unit/0.5 Ml Syringe) 5,000 unit SQ Q8HR [facility] Last Admin: 02/21/23 15:59 Dose: 5,000 unit Hydromorphone HCl (Hydromorphone 0.5 Mg/0.5 Ml Syringe) 0.5 mg IVP Q3HR PRN PRN Reason: Pain Scale 4 to 6 Last Admin: 02/21/23 08:34 Dose: 0.5 mg Hydromorphone HCl (Hydromorphone 1 Mg/Ml 1 Ml Syringe) 1 mg IVP Q3HR PRN PRN Reason: Pain Scale 7 to 10 Last Admin: 02/21/23 14:11 Dose: 1 mg Magnesium Hydroxide (Magnesium Hydroxide 2,400 Mg/10 Ml Cup) 2,400 mg PO DAILY PRN PRN Reason: Constipation Naloxone HCl (Naloxone 0.4 Mg/Ml 1 Ml Vial) 0.2 mg IV Q2M PRN PRN Reason: Opioid Reversal Ondansetron HCl (Ondansetron 4 Mg/2 Ml Vial) 4 mg IVP DAILY PRN PRN Reason: Nausea And Vomiting Senna/Docusate Sodium (Sennosides-Docusate Sodium 1 Each Tab) 2 each PO HS [facility] Last Admin: 02/21/23 19:52 Dose: Not Given Sodium Bicarbonate (Sodium Bicarbonate Tab 650 Mg Tab) 650 mg PO BID [facility] Last Admin: 02/21/23 19:51 Dose: Not Given Past medical history to include: 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 Patient was drinking a fifth/gallon daily for many years. At [facility] on for rehab. Ex-smoker. Family history: Anxiety depression Physical examination: VITAL SIGNS: 98.2, 77, 16, 1 28 x 31, 96% on 2 L GENERAL: Declining in bed, comfortable EYES: Pupils equal. Conjunctiva normal. HEENT: External appearance of nose and ears normal, oral cavity grossly normal. NECK: JVD not raised; masses not palpable. HEART: First and second heart sounds are normal; no edema. LUNGS: Respiratory rate normal; decreased breath sounds. ABDOMEN: Soft, no distention, nontender, liver spleen not palpable, no masses palpable. PSYCH: Answering questions appropriately MUSCULOSKELETAL:No Clubbing/cyanosis;muscles-grossly intact. Loss of muscle mass. Evidence of OA. Dressing over the incision site right hip Assessment and plan: -Right hip hemiarthroplasty for mildly increased related and externally rotated right femoral neck fracture. Done on February [address] Marquez -Probable chronic rotator cuff adenopathy of the left shoulder -Chronic ascites secondary to cirrhosis -Cirrhosis secondary liver disease Low-sodium diet, diuretics -Chronic medical debility secondary to cirrhosis -COPD in an ex-smoker DuoNeb when necessary -DJD with herniated disc Pain management -GERD PPI -Anxiety depression Lexapro, Xanax when necessary -Chronic pain [place] [facility] Discussed with patient. PTOT.
[2023-02-21] MEDS: MORPHINE SULFATE ER 30 MG TABLET PO SCH (22:16)
[2023-02-21] MEDS: PANTOPRAZOLE 40 MG TABLET PO SCH (22:16)
[2023-02-21] MEDS: FOLIC ACID 1 MG TAB PO SCH (22:16)
[2023-02-21] MEDS: GABAPENTIN 400 MG CAP PO SCH (22:16)
[2023-02-21] MEDS: ALPRAZolam 0.25 MG TAB PO SCH (22:16)
--- NOTE | 2023-02-22 08:08 | P.PN ---
Subjective Progress Note Date: 02/22/23 Principal diagnosis: Status post right hip hemiarthroplasty Patient evaluated at bedside, he is resting comfortably. The abductor pillows in good position. When reviewing physical therapy notes, patient was an axis is yesterday. He continues to complain of discomfort throughout the right lower extremity, seems slightly improved since yesterday. Denies any headaches, lightheadedness, chest pain or shortness of breath Objective - Vital Signs Vital signs: Vital Signs Temp 98.4 F 02/22/23 02:00 Pulse 78 02/22/23 02:00 Resp 17 02/22/23 02:00 BP 133/94 02/22/23 02:00 Pulse Ox 97 02/22/23 02:00 FiO2 Intake & Output 02/21/23 02/22/23 02/22/23 18:59 06:59 18:59 Output Total 300 1200 Balance -300 -1200 Output: Urine 300 1200 Straight 300 Other: Voiding Method External Catheter External Catheter # Voids 400 - Exam Right lower extremity: Silver foam dressing is in good position and condition, mild spotting noted on dressing. There is minimal soft tissue swelling and ecchymosis surrounding the medial and lateral aspects of the incision. Calf is soft, no tenderness with palpation. Plantar flexion, dorsiflexion, EHL, FHL are intact. Sensory exam to light touch throughout the extremity is intact, dorsal pedis pulses 2+. - Labs CBC & Chem 7: 02/21/23 06:25 02/21/23 06:25 Assessment and Plan Assessment: Postoperative day #2 status post right hip hemiarthroplasty Acute blood loss anemia, expected surgical outcome Cirrhosis COPD Plan: Pain control, patient has been restarted on his chronic pain medication DVT prophylaxis, continue heparin Wound care, continue to monitor this dressing, can change her over the next 23 days Ice and elevate Abductor pillow while in bed PT/OT, WBAT with walker Medical recommendations Ferrous sulfate 325mg bid will be started today Discharge planning: Orthopedically patient is stable for discharge to subacute rehab, hopeful discharge today versus 02/23/2023 Time with Patient: Less than 30
[2023-02-22] MEDS: FERROUS SULFATE 325 MG TAB PO SCH ×2 (08:11→17:50)
[2023-02-22] MEDS: FUROSEMIDE 40 MG TAB PO SCH (08:11)
[2023-02-22] MEDS: PANTOPRAZOLE 40 MG TABLET PO SCH (08:11)
[2023-02-22] MEDS: ALPRAZolam 0.25 MG TAB PO SCH ×2 (08:11→20:47)
[2023-02-22] MEDS: MULTIVITAMINS, THERA 1 EACH TAB PO SCH (08:12)
[2023-02-22] MEDS: GABAPENTIN 100 MG CAP PO SCH ×3 (08:12→17:50)
[2023-02-22] MEDS: FOLIC ACID 1 MG TAB PO SCH (08:12)
[2023-02-22] MEDS: SODIUM BICARBONATE TAB 650 MG TAB PO SCH ×2 (08:12→20:47)
[2023-02-22] MEDS: THIAMINE 100 MG TAB PO SCH (08:12)
[2023-02-22] MEDS: HEPARIN SODIUM,PORCINE/PF 5,000 UNIT/0.5 ML SYRINGE SQ SCH ×2 (08:12→16:03)
[2023-02-22] MEDS: MORPHINE SULFATE ER 30 MG TABLET PO SCH ×2 (08:44→20:47)
[2023-02-22] MEDS ORDERED: ESCITALOPRAM 20 MG TAB PO SCH (09:00)
[2023-02-22] MEDS: HYDROcodone/APAP 7.5-325MG 1 EACH TAB PO PRN (10:23)
--- NOTE | 2023-02-22 12:32 | P.DS ---
Providers Date of admission: 02/20/23 07:23 Expected date of discharge: 02/22/23 Attending physician: Davonte Marquez DO Consults: 02/20/23 07:23 Consult Physician Urgent Consulting Provider: Maximus Chavis Consult Reason/Comments: Medical management and clearance for surgery Do you want consulting provider notified?: Yes Primary care physician: [facility] Course: Date of admission: 02/20/2030 Date of discharge: 02/22/2023 Admission diagnosis: 1. Right femoral neck fracture, compete displaced, comminuted Discharge diagnosis: Same Attending physician: Dr. Marquez Surgical procedures: Right hip hemiarthroplasty Brief history: Patient is a 72-year-old male with a history of right hip femoral neck fracture status post fall. At this point patient has failed conservative treatment measures and has opted to proceed with a elective right hip hemiarthroplasty. Hospital course: Details of patient's surgery can be found in operative report. Patient tolerated the procedure well and was subsequently transported to orthopedic floor. Patient's orthopeidc and medical care was provided daily. Patient had daily laboratory tests performed for evaluation of overall blood counts. Patient had daily physical therapy to include strengthening range of motion as well as education with walker ambulation. Patient was treated with heparin for their postoperative DVT prophylaxis during their inpatient stay. Patient was noted to have a relatively uneventful postoperative course. Patient reported satisfactory pain control with oral pain medications by postoperative day 1. Patient showed satisfactory progress with physical therapy. Patient moved steadily through the program and had no difficulty meeting the goals by postoperative day 1. Given patient's otherwise satisfactory course and having met physical therapy goals, plan is to discharge patient to rehab on postoperative day one. Discharge condition/disposition: Patient will be discharged to rehab in stable condition. Discharge medications: Instructions are given on resumption of patient's normal daily medications per primary care recommendation, in addition patient will be prescribed lovenox; norco; senna Discharge instructions: 1. Wound care and infection precautions, keep incision dry and covered while showering, no lotions, creams, moisturizers. No soaking, tubs, pools, hottubs. Do not scrub over the incision. 2. Weight-bear as tolerated with walker / cane until follow-up. 3. Ice and elevate when necessary. Do not exceed 20 minutes per hour with ice pack. 4. Utilize compression sleeve until seen at first follow up appointment. 5. Nrsing care. 6. Physical therapy. 7. Pain meds and anticoagulants per prescription. 8. Pain medication has potential to cause constipation. Increase oral fluid and fiber intake. Contact primary care provider if you have not had a bowel movement within 48 hours after discharge 9. No anti-inflammatory medication until discussed at first post operative visit, this including Motrin, Aleve, Mobic, Diclofenac. 10. Follow up in office at [address] Davonte Marquez 11. Follow up with your primary care doctor 7-10 days after discharge. 12. Contact [facility] with any questions, . Assessment: Right femoral neck fracture, compete displaced, comminuted Procedures: Right hip hemiarthroplasty Patient Condition at Discharge: Stable Plan - Discharge Summary Discharge Rx Participant: No New Discharge Prescriptions: New Spironolactone [Aldactone] 100 mg PO DAILY #1 tab Enoxaparin [Lovenox] 30 mg SQ DAILY #28 each Sennosides-Docusate Sodium [Senokot-S] 2 each PO HS tab Continue Sodium Bicarbonate Tab 650 mg PO BID tab Omeprazole 20 mg PO DAILY Folic Acid 0.8 mg PO DAILY Mag Hydrox/Aluminum Hyd/Simeth [Mylanta Maximum Strength Liq] 30 ml PO Q6H PRN PRN Reason: GI UPSET Morphine Sulfate ER [Ms Contin] 30 mg PO Q12HR #6 tab Gabapentin [Neurontin] 800 mg PO HS@2100 #3 cap Gabapentin [Neurontin] 400 mg PO BID@0800,1300 #6 Acetaminophen Tab [Tylenol] 650 mg PO Q6HR PRN tab PRN Reason: Fever And/ Or Pain Thiamine [Vitamin B-1] 100 mg PO DAILY tab Multivitamins, Thera [Multivitamin (formulary)] 1 tab PO DAILY #30 tablet Calcium Carbonate [Tums] 1,000 mg PO Q6H PRN PRN Reason: ACID REFLUX Sodium Chloride [Saline Mist] 1 spray EA NOSTRIL Q8H PRN PRN Reason: DRY NOSE Melatonin 5 mg PO HS Escitalopram [Lexapro] 20 mg PO DAILY HYDROcodone/APAP 7.5-325MG [[place] 7.5-325] 1 tab PO Q6H PRN #12 tab PRN Reason: Pain Changed Ferrous Sulfate [Iron (65 MG Elemental)] 325 mg PO BID #0 ALPRAZolam [Xanax] 0.25 mg PO BID PRN #6 tab PRN Reason: Anxiety Discontinued Ciprofloxacin HCl [Cipro] 250 mg PO HS Potassium Chloride ER [K-Dur 10] 10 meq PO DAILY Furosemide [Lasix] 40 mg PO DAILY Discharge Medication List Acetaminophen Tab [Tylenol] 650 mg PO Q6HR PRN tab 04/15/21 [Rx] Multivitamins, Thera [Multivitamin (formulary)] 1 tab PO DAILY #30 tablet 04/15/21 [Rx] Sodium Bicarbonate Tab 650 mg PO BID tab 04/15/21 [Rx] Thiamine [Vitamin B-1] 100 mg PO DAILY tab 04/15/21 [Rx] Omeprazole 20 mg PO DAILY 04/28/21 [History] Calcium Carbonate [Tums] 1,000 mg PO Q6H PRN 10/27/21 [History] Folic Acid 0.8 mg PO DAILY 10/27/21 [History] Escitalopram [Lexapro] 20 mg PO DAILY 02/20/23 [History] Mag Hydrox/Aluminum Hyd/Simeth [Mylanta Maximum Strength Liq] 30 ml PO Q6H PRN 02/20/23 [History] Melatonin 5 mg PO HS 02/20/23 [History] Sodium Chloride [Saline Mist] 1 spray EA NOSTRIL Q8H PRN 02/20/23 [History] ALPRAZolam [Xanax] 0.25 mg PO BID PRN #6 tab 02/22/23 [Rx] Enoxaparin [Lovenox] 30 mg SQ DAILY #28 each 02/22/23 [Rx] Ferrous Sulfate [Iron (65 MG Elemental)] 325 mg PO BID #0 02/22/23 [Rx] Gabapentin [Neurontin] 400 mg PO BID@0800,1300 #6 02/22/23 [Rx] Gabapentin [Neurontin] 800 mg PO HS@2100 #3 cap 02/22/23 [Rx] HYDROcodone/APAP 7.5-325MG [[place] 7.5-325] 1 tab PO Q6H PRN #12 tab 02/22/23 [Rx] Morphine Sulfate ER [Ms Contin] 30 mg PO Q12HR #6 tab 02/22/23 [Rx] Sennosides-Docusate Sodium [Senokot-S] 2 each PO HS tab 02/22/23 [Rx] Spironolactone [Aldactone] 100 mg PO DAILY #1 tab 02/22/23 [Rx] Follow up Appointment(s)/Referral(s): Alejandro Graf DO [Primary Care Provider] - 1-2 days Davonte Marquez DO [Doctor of Osteopathic Medicine] - 03/09/23 2:30 pm Activity/Diet/Wound Care/Special Instructions: Discharge instructions: 1. Wound care and infection precautions, keep incision dry and covered while showering, no lotions, creams, moisturizers. No soaking, tubs, pools, hottubs. Do not scrub over the incision. 2. Weight-bear as tolerated with walker / cane until follow-up. 3. Ice and elevate when necessary. Do not exceed 20 minutes per hour with ice pack. 4. Utilize compression sleeve until seen at first follow up appointment. 5. Nrsing care. 6. Physical therapy. 7. Pain meds and anticoagulants per prescription. 8. Pain medication has potential to cause constipation. Increase oral fluid and fiber intake. Contact primary care provider if you have not had a bowel movement within 48 hours after discharge 9. No anti-inflammatory medication until discussed at first post operative visit, this including Motrin, Aleve, Mobic, Diclofenac. 10. Follow up in office at [address] Davonte Marquez 11. Follow up with your primary care doctor 7-10 days after discharge. 12. Contact [facility] with any questions, . Discharge Disposition: TRANSFER TO SNF/ECF
--- NOTE | 2023-02-22 19:58 | P.PN ---
Progress Note - Text Progress Note Date: 02/22/23 Hospital course: 72 year old man with history of CKD III, Liver Cirrhosis, HTN, HLD, COPD presen isaak after mechanical fall resulted in hip fracture. Medicine consulted for medical management as well as pre-operative clearance. Patient has previously graduated hospice in the last year for which she was enrolled initially for decompensated liver cirrhosis, however, has since improved and no longer builds ascites in his abdomen. He is typically ambulatory with a walker in the senior living, and is able to "walk around the building without any trouble". He believes he is still required to be in a senior living due to neuropathy in his lower extremities. He denies history of heart attack or stroke. He denies symptoms of angina, dyspnea on exertion. Patient's METs estimation is less than 4. [place] activity status index estimation is approximately 3.63 METs. Patient otherwise denies fevers, chills, nausea, vomiting, chest pain, palpitations, syncope, presyncope, cough, dyspnea, abdominal pain, constipation, diarrhea, dysuria, dyschezia, numbness/weakness of extremities. In the emergency room, patient was afebrile, 139/86, heart rate 61, 100% on 2 L of nasal cannula. CBC demonstrates mild anemia down to 12.1, normal platelets of 206. Basic metabolic panel shows BUN 26, creatinine of 1.47. Liver function tests are unremarkable. Lipase is 55. Coags are unremarkable. Chest x-ray shows clear parenchyma on the right with opacity of the left lower base, also with borderline cardiomegaly. EKG shows normal sinus rhythm with T-wave inversion in lead 3, normal axis, no evidence of ischemia or old infarct. Hip x-ray shows mildly angulated and externally rotated right femoral neck fracture, shoulder x-ray shows old fracture deformity of the clavicular shaft with no acute osseous abnormalities. Patient was admitted to the orthopedic surgery service and medicine was consulted for medical management and preoperative clearance. February 21: I assumed care of the patient today from [facility]. Laying in bed. Some pain at the operative site. Not too hungry for breakfast. Breathing stable. On nasal cannula. Patient underwent right hip hemiarthroplasty by Dr. Marquez yesterday. February 22: In bed. Declining food. Not hungry. Breathing stable. Answering questions appropriately. Will DC Dilaudid. We'll also DC Lexapro. Lethargic. Active Medications Acetaminophen (Acetaminophen Tab 325 Mg Tab) 650 mg PO Q4HR PRN PRN Reason: Pain Scale 1 to 5 Last Admin: 02/22/23 08:12 Dose: 650 mg Hydrocodone Bitart/Acetaminophen (Hydrocodone/Apap 5-325mg 1 Each Tab) 1 each PO Q6HR PRN PRN Reason: Pain Scale 1 to 5 Hydrocodone Bitart/Acetaminophen (Hydrocodone/Apap 7.5-325mg 1 Each Tab) 1 each PO Q6H PRN PRN Reason: Pain Scale 6 to 10 Last Admin: 02/22/23 10:23 Dose: 1 each Albuterol/Ipratropium (Ipratropium-Albuterol 3 Ml Neb) 3 ml INHALATION RT-Q4H PRN PRN Reason: Shortness Of Breath Alprazolam (Alprazolam 0.25 Mg Tab) 0.25 mg PO BID [facility] Last Admin: 02/22/23 08:11 Dose: 0.25 mg Calcium Carbonate/Glycine (Calcium Carbonate 500 Mg Chewable) 1,000 mg PO Q6H PRN PRN Reason: ACID REFLUX Escitalopram Oxalate (Escitalopram 20 Mg Tab) 20 mg PO DAILY [facility] Last Admin: 02/22/23 08:11 Dose: 20 mg Ferrous Sulfate (Ferrous Sulfate 325 Mg Tab) 325 mg PO BID-W/MEALS [facility] Last Admin: 02/22/23 17:50 Dose: 325 mg Folic Acid (Folic Acid 1 Mg Tab) 1 mg PO DAILY [facility] Last Admin: 02/22/23 08:12 Dose: 1 mg Furosemide (Furosemide 40 Mg Tab) 40 mg PO DAILY [facility] Last Admin: 02/22/23 08:11 Dose: 40 mg Gabapentin (Gabapentin 100 Mg Cap) 100 mg PO TID@0800,1200,1800 [facility] Last Admin: 02/22/23 17:50 Dose: 100 mg Gabapentin (Gabapentin 400 Mg Cap) 800 mg PO HS@2100 [facility] Last Admin: 02/21/23 22:16 Dose: 800 mg Heparin Sodium (Porcine) (Heparin Sodium,Porcine/Pf 5,000 Unit/0.5 Ml Syringe) 5,000 unit SQ Q8HR [facility] Last Admin: 02/22/23 16:03 Dose: 5,000 unit Hydromorphone HCl (Hydromorphone 0.5 Mg/0.5 Ml Syringe) 0.5 mg IVP Q3HR PRN PRN Reason: Pain Scale 4 to 6 Last Admin: 02/21/23 08:34 Dose: 0.5 mg Hydromorphone HCl (Hydromorphone 1 Mg/Ml 1 Ml Syringe) 1 mg IVP Q3HR PRN PRN Reason: Pain Scale 7 to 10 Last Admin: 02/21/23 14:11 Dose: 1 mg Magnesium Hydroxide (Magnesium Hydroxide 2,400 Mg/10 Ml Cup) 2,400 mg PO DAILY PRN PRN Reason: Constipation Morphine Sulfate (Morphine Sulfate Er 30 Mg Tablet) 30 mg PO Q12HR [facility]; Protocol Last Admin: 02/22/23 08:44 Dose: 30 mg Multivitamins (Multivitamins, Thera 1 Each Tab) 1 each PO DAILY [facility] Last Admin: 02/22/23 08:12 Dose: 1 each Naloxone HCl (Naloxone 0.4 Mg/Ml 1 Ml Vial) 0.2 mg IV Q2M PRN PRN Reason: Opioid Reversal Ondansetron HCl (Ondansetron 4 Mg/2 Ml Vial) 4 mg IVP DAILY PRN PRN Reason: Nausea And Vomiting Pantoprazole Sodium (Pantoprazole 40 Mg Tablet) 40 mg PO DAILY@0730 [facility] Last Admin: 02/22/23 08:11 Dose: 40 mg Senna/Docusate Sodium (Sennosides-Docusate Sodium 1 Each Tab) 2 each PO HS [facility] Last Admin: 02/21/23 19:52 Dose: Not Given Sodium Bicarbonate (Sodium Bicarbonate Tab 650 Mg Tab) 650 mg PO BID [facility] Last Admin: 02/22/23 08:12 Dose: 650 mg Sodium Chloride (Sodium Chloride 0.65% Nasal Endeavor 44 Ml Btl) 1 spray NASAL Q8H PRN PRN Reason: DRY NOSE Thiamine HCl (Thiamine 100 Mg Tab) 100 mg PO DAILY [facility] Last Admin: 02/22/23 08:12 Dose: 100 mg Past medical history to include: 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 Patient was drinking a fifth/gallon daily for many years. At [facility] for rehab. Ex-smoker. Family history: Anxiety depression Physical examination: VITAL SIGNS: 98.3, 80, 16, 1:30/85, 96% room air GENERAL: Clinically, but sleepy. EYES: Pupils equal. Conjunctiva normal. HEENT: External appearance of nose and ears normal, oral cavity grossly normal. NECK: JVD not raised; masses not palpable. HEART: First and second heart sounds are normal; no edema. LUNGS: Respiratory rate normal; decreased breath sounds. ABDOMEN: Soft, no distention, nontender, liver spleen not palpable, no masses palpable. PSYCH: Answering questions appropriately. But lethargic MUSCULOSKELETAL:No Clubbing/cyanosis;muscles-grossly intact. Loss of muscle mass. Evidence of OA. Dressing over the incision site right hip Assessment and plan: -Right hip hemiarthroplasty for mildly increased related and externally rotated right femoral neck fracture. Done on February [address] Marquez -Probable chronic rotator cuff adenopathy of the left shoulder -Acute metabolic encephalopathy likely from multiple medications. *Stop Dilaudid. Use [place] when necessary. DC Lexapro. -Chronic ascites secondary to cirrhosis -Cirrhosis secondary liver disease Low-sodium diet, diuretics -Chronic medical debility secondary to cirrhosis -COPD in an ex-smoker DuoNeb when necessary -DJD with herniated disc Pain management -GERD PPI -Anxiety depression , Xanax when necessary -Chronic pain [place], [place] Contin -DO NOT RESUSCITATE Stop Dilaudid. Stop Lexapro. Other medications to continue. Looking to going to rehab
[2023-02-22] MEDS: SENNOSIDES-DOCUSATE SODIUM 1 EACH TAB PO SCH (20:47)
[2023-02-22] MEDS: GABAPENTIN 400 MG CAP PO SCH (20:47)
[2023-02-23] MEDS: HEPARIN SODIUM,PORCINE/PF 5,000 UNIT/0.5 ML SYRINGE SQ SCH ×2 (00:03→09:15)
[2023-02-23] MEDS: HYDROcodone/APAP 7.5-325MG 1 EACH TAB PO PRN ×2 (00:05→08:38)
[2023-02-23 07:36] VITALS: BP 131/90; PULSE 69; RESP 18; TEMP 98.5
[2023-02-23] MEDS: SODIUM BICARBONATE TAB 650 MG TAB PO SCH (08:22)
[2023-02-23] MEDS: ALPRAZolam 0.25 MG TAB PO SCH (08:22)
[2023-02-23] MEDS: MULTIVITAMINS, THERA 1 EACH TAB PO SCH (08:23)
[2023-02-23] MEDS: PANTOPRAZOLE 40 MG TABLET PO SCH (08:23)
[2023-02-23] MEDS: FUROSEMIDE 40 MG TAB PO SCH (08:23)
[2023-02-23] MEDS: THIAMINE 100 MG TAB PO SCH (08:23)
[2023-02-23] MEDS: FOLIC ACID 1 MG TAB PO SCH (08:23)
[2023-02-23] MEDS: FERROUS SULFATE 325 MG TAB PO SCH (08:23)
[2023-02-23] MEDS: GABAPENTIN 100 MG CAP PO SCH ×2 (08:23→11:33)
[2023-02-23] MEDS: MORPHINE SULFATE ER 30 MG TABLET PO SCH (09:16)
--- NOTE | 2023-02-23 12:10 | P.PN ---
Subjective Progress Note Date: 02/23/23 Principal diagnosis: Right femoral neck fracture Patient was seen at bedside this morning lying semirecumbent position with a dressing over right hip. Patient says he is in a moderate amount of pain currently. Patient says he has been doing the exercises in bed with the right l ower extremity. Patient says he has urinated daily since surgery. Patient says he has not had bowel movement yet, however, patient says he has been passing gas. Patient says she has tried to work with physical therapy daily. Patient does reside at [facility] is looking forward to going back there today. Patient denies chest pain, fever, shortness of breath, nausea, vomiting, change in vision, loss of bowel/bladder control. Objective - Vital Signs Vital signs: Vital Signs Temp 98.5 F 02/23/23 07:17 Pulse 69 02/23/23 07:17 Resp 18 02/23/23 07:17 BP 131/90 02/23/23 07:17 Pulse Ox 94 L 02/23/23 07:17 FiO2 Intake & Output 02/22/23 02/23/23 02/23/23 18:59 06:59 18:59 Intake Total 258 Output Total 200 1200 Balance 58 -1200 Intake: Oral 258 Output: Urine 200 1200 Other: Voiding Method External Catheter External Catheter - Exam Right hip: Incision is clean, dry, and intact. The silver foam dressing is in good condition, with minimal spotting. Dressings were changed at bedside today. Dane are well aligned and intact at this time. Negative for any active drainage. New silver foam dressings were placed over incisions. There is minimal soft tissue swelling and ecchymosis surrounding the medial and lateral aspects of the incision. Calf is soft, no tenderness with palpation. Plantar flexion, dorsiflexion, EHL, FHL are intact. Sensory exam to light touch throughout the extremity is intact, dorsal pedis pulses 2+. - Labs CBC & Chem 7: 02/21/23 06:25 02/21/23 06:25 Assessment and Plan Assessment: 1. Right hip femoral neck fracture - Postop day 2 status post right hip hemiarthroplasty Plan: 1. Right hip femoral neck fracture - patient stable at bedside this point. Surgery performed 02/21/2023 - right hip hemiarthroplasty. Pain medications as needed. PT/OT daily. Dressing changes at bedside. Dane are well aligned and intact at this time. Negative for any active drainage. Discharge to rehab today. 2. Appreciate medical management 3. Pain management - [place]; gabapentin 4. DVT prophylaxis - Lovenox 5. GI prophylaxis - senna 6. Encourage incentive spirometer use 7. PT/OT - weightbearing as tied with walker and assistance as needed 8. Discharge planning - discharge to rehab today. Time with Patient: Less than 30
--- NOTE | 2023-02-23 14:43 | P.PN ---
Progress Note - Text Progress Note Date: 02/23/23 Hospital course: 72 year old man with history of CKD III, Liver Cirrhosis, HTN, HLD, COPD presen isaak after mechanical fall resulted in hip fracture. Medicine consulted for medical management as well as pre-operative clearance. Patient has previously graduated hospice in the last year for which she was enrolled initially for decompensated liver cirrhosis, however, has since improved and no longer builds ascites in his abdomen. He is typically ambulatory with a walker in the shelter, and is able to "walk around the building without any trouble". He believes he is still required to be in a shelter due to neuropathy in his lower extremities. He denies history of heart attack or stroke. He denies symptoms of angina, dyspnea on exertion. Patient's METs estimation is less than 4. Centeno activity status index estimation is approximately 3.63 METs. Patient otherwise denies fevers, chills, nausea, vomiting, chest pain, palpitations, syncope, presyncope, cough, dyspnea, abdominal pain, constipation, diarrhea, dysuria, dyschezia, numbness/weakness of extremities. In the emergency room, patient was afebrile, 139/86, heart rate 61, 100% on 2 L of nasal cannula. CBC demonstrates mild anemia down to 12.1, normal platelets of 206. Basic metabolic panel shows BUN 26, creatinine of 1.47. Liver function tests are unremarkable. Lipase is 55. Coags are unremarkable. Chest x-ray shows clear parenchyma on the right with opacity of the left lower base, also with borderline cardiomegaly. EKG shows normal sinus rhythm with T-wave inversion in lead 3, normal axis, no evidence of ischemia or old infarct. Hip x-ray shows mildly angulated and externally rotated right femoral neck fracture, shoulder x-ray shows old fracture deformity of the clavicular shaft with no acute osseous abnormalities. Patient was admitted to the orthopedic surgery service and medicine was consulted for medical management and preoperative clearance. February 21: I assumed care of the patient today from [facility]. Laying in bed. Some pain at the operative site. Not too hungry for breakfast. Breathing stable. On nasal cannula. Patient underwent right hip hemiarthroplasty by Dr. Marquez yesterday. February 22: In bed. Declining food. Not hungry. Breathing stable. Answering questions appropriately. Will DC Dilaudid. We'll also DC Lexapro. Lethargic. February 23: Upper in bed. Able to hold a conversation. Eating well. Pain control. Going to rehab today. 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 Patient was drinking a fifth/gallon daily for many years. At [facility] on for rehab. Ex-smoker. Family history: Anxiety depression Physical examination: VITAL SIGNS: 98.5, 69, 18, 131/90, 94% room air GENERAL: Sitting up in bed awake comfortable EYES: Pupils equal. Conjunctiva normal. HEENT: External appearance of nose and ears normal, oral cavity grossly normal. NECK: JVD not raised; masses not palpable. HEART: First and second heart sounds are normal; no edema. LUNGS: Respiratory rate normal; decreased breath sounds. ABDOMEN: Soft, no distention, nontender, liver spleen not palpable, no masses palpable. PSYCH: Answering questions appropriately. MUSCULOSKELETAL:No Clubbing/cyanosis;muscles-grossly intact. Loss of muscle mass. Evidence of OA. Dressing over the incision site right hip Assessment and plan: -Right hip hemiarthroplasty for mildly increased related and externally rotated right femoral neck fracture. Done on February [address] Marquez -Probable chronic rotator cuff adenopathy of the left shoulder -Acute metabolic encephalopathy likely from multiple medications. *Stop Dilaudid. Use Rose when necessary. DC Lexapro. -Chronic ascites secondary to cirrhosis -Chronic kidney disease stage III likely hepatorenal Follow labs outpatient -Cirrhosis secondary liver disease Low-sodium diet, diuretics -Chronic medical debility secondary to cirrhosis -COPD in an ex-smoker DuoNeb when necessary -DJD with herniated disc Pain management -GERD PPI -Anxiety depression , Xanax when necessary -Chronic pain Rose, MS Contin -DO NOT RESUSCITATE Continue current medications. Going to rehab. Repeat CBC, BMP in 1 week.
== END 2023-02-23 12:03 | DRG 521 ==
LOC: EC 04:34 → 4SSUR 07:23
PROVIDERS: ADMIT Orthopaedic Surgery; ATTEND Orthopaedic Surgery
PROC: 0SRR03A Replacement of Right Hip Joint, Femoral Surface with Ceramic Synthetic Substitute, Uncemented, Open Approach (ICD-10-PCS; principal; 2023-02-20 12:00)
DX: S72.001A Fracture of unspecified part of neck of right femur, initial encounter for closed fracture (principal); G92.8 Other toxic encephalopathy; D62 Acute posthemorrhagic anemia; N13.30 Unspecified hydronephrosis; K70.31 Alcoholic cirrhosis of liver with ascites; K72.10 Chronic hepatic failure without coma; N18.30 Chronic kidney disease, stage 3 unspecified; I13.10 Hypertensive heart and chronic kidney disease without heart failure, with stage 1 through stage 4 chronic kidney disease, or unspecified chronic kidney disease; J44.9 Chronic obstructive pulmonary disease, unspecified; Z66 Do not resuscitate; E78.5 Hyperlipidemia, unspecified; K21.9 Gastro-esophageal reflux disease without esophagitis; T40.2X5A Adverse effect of other opioids, initial encounter; F32.A Depression, unspecified; F10.11 Alcohol abuse, in remission; G89.29 Other chronic pain; S42.002S Fracture of unspecified part of left clavicle, sequela; M19.012 Primary osteoarthritis, left shoulder; G62.9 Polyneuropathy, unspecified; F41.9 Anxiety disorder, unspecified; K59.00 Constipation, unspecified; R59.9 Enlarged lymph nodes, unspecified; Z79.2 Long term (current) use of antibiotics; Z79.899 Other long term (current) drug therapy; Z87.891 Personal history of nicotine dependence; W01.0XXA Fall on same level from slipping, tripping and stumbling without subsequent striking against object, initial encounter; Y92.121 Bathroom in nursing home as the place of occurrence of the external cause
CPT/HCPCS: 36415; 71045; 73501; 73502; 80048; 80053; 83690; 83735; 83880; 85025; 85610; 85730; 88305; 88311; 93005; 99285

== ENCOUNTER → 2024-03-26 | Outpatient (CLI) | payer MEDICARE, OTHER ==
--- NOTE | 2024-03-28 13:26 | CT ---
EXAMINATION TYPE: CT angio abd aorta w/Runoff DATE OF EXAM: 03/26/2024 COMPARISON: None HISTORY: STRICTURE OF ARTERY CT DLP: 2934.4 mGycm EXAMINATION TYPE: CT angio abd aorta w/Runoff DATE OF EXAM: 03/26/2024 HISTORY: STRICTURE OF ARTERY CT DLP: 2934.4 mGycm CONTRAST: CTA thoracic and abdominal aorta with 3-D reconstruction is performed and with IV Contrast, patient i njected with 80ml mL of Isovue 370. Contrast CTA of the abdominal aorta with runoff of the lower extremity arterial system was performed from the lung bases through the ankles and feet. 3-D reconstruction imaging obtained at a separate wo rkstation. ABDOMINAL AORTA: Abdominal aorta is atheromatous and ectatic without evidence for aneurysm or dissect ion. Major branch vessels appear patent. Iliac vessels: Common iliac arteries are patent bilaterally. Mild scattered plaque seen. Internal/ext ernal iliac arteries are patent as well. Femoral arteries: Within the proximal to mid right superficial femoral artery there are 2 focal areas of high-grade stenosis greater than 90%. 70-80% focal stenosis noted distal right SFA. 70% focal valery nosis left SFA at its midportion. Popliteal arteries: Popliteal arteries are patent bilaterally with only mild plaque formation noted. Below the knee arteries: Trifurcation is patent bilaterally. Peroneal, anterior and posterior tibial arteries demonstrate mild calcific disease without evidence for hemodynamically significant stenosis. Limited runoff of the ankles and feet given timing of the contrast bolus. LIVER/GB- No significant abnormality is seen. PANCREAS- No significant abnormality is seen. SPLEEN- No significant abnormality is seen. ADRENALS- No significant abnormality is seen. KIDNEYS/BLADDER-nonobstructing nephrolithiasis bilaterally. BOWEL- No Significant abnormality GENITAL ORGANS: No gross abnormality seen. LYMPH NODES- No greater than 1cm abdominal or pelvic lymph nodes are appreciated. OSSEOUS STRUCTURES- No significant abnormality is seen. OTHER- No significant abnormality is seen. IMPRESSION- 1. Bilateral SFA disease as discussed above.
== END | disposition home or self-care (01) ==
LOC: RADCTMAIN 12:14
PROVIDERS: ATTEND Surgery Vascular Surgery
DX: I77.1 Stricture of artery (principal)
CPT/HCPCS: 75635; Q9967

== ENCOUNTER → 2025-01-30 | Outpatient (CLI) | payer MEDICARE, OTHER ==
--- NOTE | 2025-01-30 11:18 | MM ---
Reason for Exam: Clinical finding. Baseline mammogram. Prior Study Comparison: Patient's first Mammogram. Tissue Density: The breasts are heterogeneously dense, which may obscure small masses. Findings: Analyzed By CAD. Mild gynecomastia changes bilaterally right greater than left with fibroglandular tissue present in the retroareolar region. No new suspicious masses, calcifications or distortions. Overall Assessment: Incomplete: need additional imaging evaluation, BI-RAD 0 Management: Diagnostic Breast Ultrasound of both breasts. Findings are most compatible with male gynecomastia. Precautionary ultrasound recommended. Results were given to the patient verbally at the time of exam. Patient should continue monthly self-breast exams. A clinical breast exam by your physician is recommended on an annual basis. This exam should not preclude additional follow-up of suspicious palpable abnormalities. Note on Africa scores and lifetime risk: 1. A Africa score greater than 3% is considered moderate risk. If this is the case, consider specialist referral to assess eligibility for a risk reducing agent. 2. If overall lifetime risk for the development of breast cancer is 20% or higher, the patient may qualify for future screening with alternating mammogram and breast MRI. [facility], , 01/30/2025 11:10 AM. Electronically signed and approved by: Neri Alvarenga DO
== END | disposition home or self-care (01) ==
LOC: RADMAMWWP 10:47
PROVIDERS: ATTEND Family Medicine
DX: R92.8 Other abnormal and inconclusive findings on diagnostic imaging of breast (principal); R92.333 Mammographic heterogeneous density, bilateral breasts
CPT/HCPCS: 77062; 77066

== ENCOUNTER 2025-03-20 06:06 | Day surgery (SDC) | payer MEDICARE, OTHER ==
[2025-03-20 06:50] VITALS: TEMP 97.2
[2025-03-20 06:50] LABS: Glucose,Whole Blood 94 mg/dL (70-110)
[2025-03-20] MEDS: IV FLUID CONTINUATION 1,000 ML IV ONE (06:50)
[2025-03-20] MEDS: LACTATED RINGERS 1,000 ML IV SCH (06:50)
[2025-03-20] MEDS ORDERED: PROPOFOL 10 MG/ML 20 ML VIAL IV ONE (07:09)
[2025-03-20] MEDS ORDERED: LIDOCAINE 2% (PF) 20 MG/ML 5 ML VIAL ONE (07:09)
--- NOTE | 2025-03-20 07:17 | P.PCN ---
Date of Procedure: 03/20/25 Procedure(s) Performed: BRIEF HISTORY: Patient is a 74-year-old, pleasant, white male with history of liver cirrhosis is scheduled for an upper endoscopy as a part of screening for esophageal varices. PROCEDURE PERFORMED: Esophagogastroduodenoscopy. PREOPERATIVE DIAGNOSIS: History of liver cirrhosis/screening for esophageal varices. IV sedation per anesthesia. PROCEDURE: After informed consent was obtained, the patient was brought into the endoscopy unit. IV sedation was administered by Anesthesia under continuous monitoring. Initially the Olympus GIF-140 video endoscope was inserted into the mouth. Esophagus intubated without any difficulty. It was gradually advanced into the stomach and duodenum and carefully examined. The bulb and the second part of the duodenum appeared normal. The scope at this time was withdrawn to the stomach, adequately insufflated with air, and upon careful examination, mucosa of the antrum, and mild gastritis. Mucosa of the body, cardia and the fundus appeared normal. No gastric varices identified. The scope was then withdrawn into the esophagus. The GE junction was located at 39 cm from the incisors. The esophagus appeared normal. There were no esophageal varices seen. There were no erosions or ulcerations seen and the patient tolerated the proced ure well. IMPRESSION: 1. No evidence of gastric or esophageal varices. 2. Mild antral gastritis. RECOMMENDATIONS: The findings of this examination were discussed with the patient as well as his family. He was advised to have repeat screening upper endoscopy in 2 to 3 years to evaluate for esophageal varices..
[2025-03-20 07:39] VITALS: BP 110/68; PULSE 78; RESP 18
== END 2025-03-20 08:34 | disposition home or self-care (01) ==
LOC: ORWHC2ENDO 06:06
PROVIDERS: ATTEND Internal Medicine Gastroenterology
DX: K29.50 Unspecified chronic gastritis without bleeding (principal); K74.60 Unspecified cirrhosis of liver; J44.9 Chronic obstructive pulmonary disease, unspecified; I10 Essential (primary) hypertension; F17.200 Nicotine dependence, unspecified, uncomplicated; M54.50 Low back pain, unspecified; Z86.59 Personal history of other mental and behavioral disorders; Z79.899 Other long term (current) drug therapy
CPT/HCPCS: 43235; J2704; J2003